=== PATIENT | male | born 1960 | race Caucasian/White ===

== ENCOUNTER → 2020-03-07 08:00 | Outpatient (REF) | payer MEDICARE, MEDICAID, SELFPAY ==
--- NOTE | 2020-03-07 | NM_ITS ---
Exercise Myocardial perfusion study Indication: Chest pain with multiple risk factors to evaluate for myocardial ischemia Technique: The patient was brought in for an exercise perfusion study on 03/07/2020. Patient performed exercise as per Mikey protocol and was injected 25 mCi of sestamibi was given intravenously one target HR was achieved. Images were obtained using the SPECT gamma camera interlaced with the gating device. Images were obtained in supine position. Resting perfusion study was performed on 03/11/2020. Patient was administered 25 mCi of sestamibi intravenously at rest. Images were then obtained in supine position. Images obtained with and without CT attenuation. Total DLP 72 MGY-CM. Images were processed with the software and compared side to side in short axis, horizontal long axis and vertical long axis views. Findings: The stress perfusion study showed non attenuated images shows overall normal perfusion with mild thinning of the basal inferior wall. Attenuation corrected images show normal uptake of radiotracer in all segments of LV myocardium.. The gated study shows normal LV systolic function with calculated LVEF of 67%. LV cavity is normal in size. The gated study shows normal systolic wall thickening and contraction of all segments. There is no transient ischemic dilation. Resting study shows non attenuated images show mildly reduced uptake in the basal inferior wall of the LV myocardium. Attenuation corrected images show normal uptake of radiotracer in all segments of LV myocardium. Gating at rest reveals normal cyst colic wall motion with ejection fraction at 66%. The findings are consistent with normal myocardial perfusion. NM/NM len perf SPECT rest & str Impression: 1. Normal myocardial perfusion 2. Gated LVEF is 67% 3. Transient ischemic dilatation not present Stress EKG is nondiagnostic for ischemia
--- NOTE | 2020-03-07 08:30 | CA_ITS ---
Acquisition Time: 2020-03-07 08:14:13 Total Exercise Time: 00:09:07 Test Indications: CP Medications: SEE CHART Protocol: DONALDO Max HR: 118 BPM 73% of Pred: 160 BPM Max BP: 140/078 mmHG Max Work Load: 10.2 METS Exercise nuclear using Donaldo protocol for total 9 min 7 sec, however pr's HR up to only 68% THR. Test switched to Lexiscan, pt tolerated well, CP 3/10 after Lexiscan that resolved in recovery. EKG with occ. PVC's and ST inversion in aVL and aVR. and upsloping ST deptressions seen inferiorly and laterally. Non-diagnostic for ischemia. Nuclear images to follow. Hypotensive response to lexiscan, normalized quickly. Test reviewed with DR. Cosme. Referred By: Sonu Campbell Overread By: Kalin Castro
== END ==
LOC: HO.CARD 08:00
PROVIDERS: PCP Internal Medicine; Visit Provider Internal Medicine Cardiovascular Disease
DX: R07.9 Chest pain, unspecified (principal)
CPT/HCPCS: 78452; 93017; A9500; J0280; J2785

== ENCOUNTER 2020-04-23 07:58 | Outpatient (REF) | payer MEDICARE, MEDICAID, SELFPAY | END 2020-04-23 07:59 | disposition home or self-care (01) | LOC: HO.LAB 07:58 | PROVIDERS: Visit Provider Internal Medicine | DX: Z13.89 Encounter for screening for other disorder (principal) | CPT/HCPCS: C9803; U0003 ==

== ENCOUNTER 2020-04-23 08:34 | Emergency (ER) | payer MEDICARE, MEDICAID, SELFPAY ==
[2020-04-23 08:44] VITALS: BP 153/91; PULSE 72; RESP 16; TEMP 37.2; O2SAT 99; BMI 24.1
--- NOTE | 2020-04-23 09:08 | ECG_ITS ---
Test Reason : HEADACHE Blood Pressure : / mmHG Vent. Rate : 059 BPM Atrial Rate : 059 BPM P-R Int : 170 ms QRS Dur : 122 ms QT Int : 418 ms P-R-T Axes : 054 -47 -28 degrees QTc Int : 413 ms Sinus bradycardia Left ventricular hypertrophy with QRS widening T wave abnormality, consider lateral ischemia Abnormal ECG When compared with ECG of 05-DEC-2008 11:01, ST less elevated in Lateral leads T wave inversion now evident in Lateral leads Referred By: Catherine Delgado Electronically Signed By:MIMI STAFFORD
--- NOTE | 2020-04-23 09:08 | XR_ITS ---
EXAMINATION: XR CHEST CLINICAL INFORMATION: Chest pain COMPARISON: Previous chest x-ray November 2008 TECHNIQUE: Frontal view of the chest was obtained. FINDINGS: No significant abnormality is noted involving the heart, lungs, mediastinum, bony thorax or soft tissues. XR/XR chest 1V IMPRESSION: Unremarkable examination.
--- NOTE | 2020-04-23 09:11 | ED_ITS ---
HPI - Headache General Chief Complaint: Headache Stated Complaint: HBP, Headache Time Seen by Provider: 04/23/20 08:36 Source: patient Mode of arrival: ambulatory History of Present Illness HPI Narrative: 60-year-old male with a past medical history of hypertension presents to ED complaining of elevated BP at home, headache, and intermittent blurry vision x5 days. Admits to compliance with hypertensive medications, last took this morning. 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 Also reports intermittent CP. Denies vision change or loss at present. Denies nausea/vomiting, SOB, numbness/tingling, cough, fever, abdominal pain, LE edema MD elicited complaint: headache Related Data Previous Rx's Medication Instructions Recorded [id number]-[id number] 1 cap PO Q4-6H PRN #14 cap 04/23/20 [Fioricet] Allergies Allergy/AdvReac Type Severity Reaction Status Date / Time nut - unspecified [NUTS] Allergy Intermediate ITCHY Unverified 01/31/20 16:38 THROAT nitroglycerin [NITROGLYCERIN] AdvReac Unknown HEADACHES Unverified 01/31/20 16:38 BREAD Allergy Mild RUNNY NOSE Uncoded 01/31/20 16:38 Lopid Allergy Unknown Uncoded 07/27/11 00:00 nsaids Allergy Unknown Uncoded 07/27/11 00:00 Percocet Allergy Unknown Uncoded 07/27/11 00:00 Review of Systems Review of Systems: Constitutional: No Weight loss, No Fever, No Chills ENT/Mouth: No Hearing loss, No Ear Pain, No Nasal Congestion, No Sinus Pain, No Hoarseness, No sore throat Eyes: No Eye Pain, No Swelling, No Redness, No Discharge, +intermittent blurry vision (not at present) Cardiovascular: + intermittent Chest Pain, No SOB, No Edema, No Palpitations Respiratory: No Cough, No Sputum, No Dyspnea Gastrointestinal: No Nausea, No Vomiting, No Diarrhea, No Constipation, No Abdominal pain Musculoskeletal: No joint pain, No Myalgias, No Joint Swelling Skin: No Skin Lesions, No rash Neuro: No Weakness, No Numbness, No Paresthesias, No Loss of Consciousness, No Dizziness, +Headache Yes all other systems are reviewed and are negative [facility]LY [facility] Past Medical History Attestation statement: The following information was validated with the patient. Medical History (Updated 04/23/20 @ 13:49 by DESI Mckeon) HTN (hypertension) Social History Social History Advance Directives: No Advance Directives Information Provided: No Physical Exam Vital Signs: Vital Signs: Last Vital Signs Temp 98.9 F 04/23/20 08:44 Pulse 58 04/23/20 13:13 Resp 17 04/23/20 13:13 BP 154/94 H 04/23/20 13:13 Pulse Ox 97 04/23/20 13:13 Body Mass Index 24.1 Const: General: cooperative and healthy appearing Orientation/consciousness: patient oriented x3 Limitations: no limitations HENMT: Head: Yes normal to inspection Ears: hearing grossly normal bilaterally General nose exam: Normal external nose present Face and sinus: Yes normal facial exam Mouth: Normal oral and palatal mucosa present Throat: Yes posterior oropharynx normal Eyes: General: appearance normal, both eyes and all related structures Ey elids: Yes eyelids normal Conjunctivae: conjunctivae normal Sclerae: sclerae normal Corneas: corneas normal Pupils: Equal, round and reactive pupils present EOM: EOMs intact bilaterally Neck: Neck: Yes normal visual inspection and Yes no meningeal signs Resp: Effort & Inspection: normal respiratory effort Auscultation: clear to auscultation bilaterally, no rales, no rhonchi and no wheezes Cardio: Rate: regular rate Heart sounds: S1 normal heart sound present and S2 normal heart sound present GI: Inspection: Yes normal to inspection Palpation (GI): Soft to palpation, nontender, no guarding and not rigid Skin: Rashes: no rashes Wounds: no wounds Neuro: General: patient oriented x3, gait normal, tone normal, moves all extremities, no meningeal signs, no focal motor deficits and CN's II-XI intact bilaterally Cranial nerves: Yes Equal, round and reactive pupils present Gait exam (Neuro): Normal gait present Motor exam (neuro): 5/5 motor strength present throughout Extrem: General: Yes normal to inspection Course Course Course Narrative: -1219--labs unremarkable, troponin negative, chest x-ray unremarkable -on re-evaluation patient reports symptomatic improvement, however patient reports requesting head CT as worried something is in brain. Will obtain prior to DC -1346--head CT unremarkable Labs/imaging results including compliance with hypertensive medications, worrisome signs and symptoms and strict return precautions discussed, patient verbalized understanding feel safe for discharge home MDM - Headache MDM Narrative Medical decision making narrative: 60-year-old male with a past medical history of hypertension presents to ED complaining of elevated BP at home, headache, intermittent blurry vision, and intermittent CP x5 days. On exam blood pressure 153/91, NAD, nontoxic appearing, no focal neuro deficits, lungs CTA. BP not high enough to cause SAH/ICH at present. Lower concern for hypertensive urgency/emergency with current blood pressure. Likely migraine headache vs COVID19. Low concern for ACS Plan: EKG, Labs, Fioricet, reassess Lab Data Result diagrams: 04/23/20 10:31 04/23/20 10:31 Labs: Lab Results 04/23/20 04/23/20 04/23/20 Range/Units 10:31 10:31 10:31 WBC 6.0 (4.8-10.8) X10*3/uL RBC 5.50 (4.60-5.80) X10*6/uL Hgb 14.7 (14.0-18.0) g/dl Hct 44.5 (42-52) % MCV 80.9 (80-98) fL MCH 26.7 L (27.0-33.0) pg MCHC 33.0 (31.0-36.0) g/dl RDW 14.5 (11.0-16.0) % Plt Count 206 (160-400) X10*3/uL MPV 9.8 (9.4-12.4) fL Immature Gran % (Auto) 0.3 (0.0-0.4) % Neut % (Auto) 51.7 (45-73) % Lymph % (Auto) 32.2 (20-40) % Hickman % (Auto) 12.6 H (2-11) % Eos % (Auto) 2.9 (0-4) % Baso % (Auto) 0.3 (0-2) % Lymph # (Auto) 1.9 (1.2-4.9) X10*3/uL Hickman # (Auto) 0.8 (0.1-1.2) X10*3/uL Eos # (Auto) 0.2 (0.0-0.4) X10*3/uL Baso # (Auto) 0.0 (0.0-0.2) X10*3/uL Abs Immat Gran (auto) 0.02 (0.00-0.03) X10*3/uL Absolute Neuts (auto) 3.1 (2.0-8.3) X10*3/uL Absolute Nucleated RBC 0.000 (0.0-0.012) X10*3/uL Nucleated RBC % (auto) 0.0 (0.0-0.2) /100WBC Hold Blue Top SEE NOTE Sodium 140 (135-145) mmol/L Potassium 3.8 (3.3-5.1) mmol/l Chloride 108 (96-108) mmol/L Carbon Dioxide 23 (22-29) mmol/L Anion Gap 13 (12-20) BUN 14 (9-16) mg/dL Creatinine 0.97 (0.5-1.4) mg/dL Estim Creat Clear Calc 70.4 Estimated GFR > 60 Random Glucose 117 H (60-115) mg/dL Calcium 8.8 (8.4-10.2) mg/dL Magnesium 2.1 (1.6-2.6) mg/dL Total Bilirubin (0.0-1.0) mg/dL Direct Bilirubin (0.0-0.5) mg/dL AST (5-37) U/L ALT (0-40) U/L Alkaline Phosphatase (39-117) U/L Troponin I High Sens (<3.5-35.0) ng/L Total Protein (6.5-8.0) g/dL Albumin (3.5-5.0) g/dL 04/23/20 04/23/20 Range/Units 10:31 10:31 WBC (4.8-10.8) X10*3/uL RBC (4.60-5.80) X10*6/uL Hgb (14.0-18.0) g/dl Hct (42-52) % MCV (80-98) fL MCH (27.0-33.0) pg MCHC (31.0-36.0) g/dl RDW (11.0-16.0) % Plt Count (160-400) X10*3/uL MPV (9.4-12.4) fL Immature Gran % (Auto) (0.0-0.4) % Neut % (Auto) (45-73) % Lymph % (Auto) (20-40) % Hickman % (Auto) (2-11) % Eos % (Auto) (0-4) % Baso % (Auto) (0-2) % Lymph # (Auto) (1.2-4.9) X10*3/uL Hickman # (Auto) (0.1-1.2) X10*3/uL Eos # (Auto) (0.0-0.4) X10*3/uL Baso # (Auto) (0.0-0.2) X10*3/uL Abs Immat Gran (auto) (0.00-0.03) X10*3/uL Absolute Neuts (auto) (2.0-8.3) X10*3/uL Absolute Nucleated RBC (0.0-0.012) X10*3/uL Nucleated RBC % (auto) (0.0-0.2) /100WBC Hold Blue Top Sodium (135-145) mmol/L Potassium (3.3-5.1) mmol/l Chloride (96-108) mmol/L Carbon Dioxide (22-29) mmol/L Anion Gap (12-20) BUN (9-16) mg/dL Creatinine (0.5-1.4) mg/dL Estim Creat Clear Calc Estimated GFR Random Glucose (60-115) mg/dL Calcium (8.4-10.2) mg/dL Magnesium (1.6-2.6) mg/dL Total Bilirubin 0.3 (0.0-1.0) mg/dL Direct Bilirubin < 0.2 (0.0-0.5) mg/dL AST 20 (5-37) U/L ALT 25 (0-40) U/L Alkaline Phosphatase 68 (39-117) U/L Troponin I High Sens 4.6 (<3.5-35.0) ng/L Total Protein 6.5 (6.5-8.0) g/dL Albumin 3.9 (3.5-5.0) g/dL Discharge Plan Discharge Clinical Impression: Headache Patient Disposition: Home, Self-Care Instructions: Acute Headache (ED) Additional Instructions: Your head CT, chest x-ray, and blood work were unremarkable today in the ED Fioricet is for headaches, prescription was sent to your pharmacy, take as needed Need to follow-up with her primary care doctor Continue to take previously prescribed hypertensive medications, monitor your blood pressure at home, call your doctor, your also tested for COVID-19, the results should be back in 3-7 days, self isolate antinausea results If symptoms persist or worsen, headache becomes unbearable, vision changes, weakness, or fever unresolved by Tylenol return to the ED Based on your symptoms and history we have sent a COVID-19. Although your RESULT IS PENDING at this time. RESULTS should return within 72 hours. At this time you will be contacted with either NEGATIVE OR POSITIVE results. -Please wait until we contact you for your results. At this time you will be okay for discharge. Please plan for self quarantine for up to 14 days. Do not expose yourself to others. You may not go to work. If testing does come back negative you may return to activities as long as you are no longer having any symptoms for at least 3 days. Please continue to follow cold instructions and wash your hands frequently. You may take Tylenol as directed on the bottle for pain or fever. Patient seen in the emergency department on 11/09/2019 and should be excused from work until negative test results AND until 72 hours without any symptoms AND at least 10 days have passed since symptoms first appeared or since last exposure to COVID-19 positive patient CDC Guidelines for home isolation: - Stay away from others - WEAR A MASK if you are sick AND STAY HOME - Cover your mouth and nose with a tissue when you cough or sneeze. Dispose of tissues in a lined trash can and wash your hands immediately with soap and water for at least 20 seconds. If soap and water are not available, clean hands with alcohol-based hand cut plug packer that contains at least 60% alcohol. - Clean your hands often with soap and water for at least 20 seconds - Avoid touching your eyes, nose and mouth with unwashed hands - Do not share dishes, drinking glasses, cups, eating utensils, towels, or bedding with other people in your home. After using these items, wash them thoroughly with soap and water or put in the solar energy technician. - Clean high-touch surfaces in your isolation area ( sick room and bathroom) every day; let a caregiver clean and disinfect high-touch surfaces in other areas of the home. Clean the area or item with soap and water or another detergent if it is dirty. Then, use a household disinfectant. - Limit contact with pets and animals: If you must care for a pet, wash your hands before and after interacting with them) Prescriptions: New vzcldvjjvw-[id number]-[id number] [Fioricet] 50-300-40 mg capsule 1 cap PO Q4-6H PRN (Reason: pain) Qty: 14 RF: 0 Referrals: Arsh Torres MD [Primary Care Provider] - 2 days
[2020-04-23 10:16] VITALS: BP 142/92; PULSE 68; RESP 17; O2SAT 97
[2020-04-23] MEDS: Butalb/Acetamin/Caff 50/325/40 TABLET 2 TAB PO (10:24)
[2020-04-23 10:38] LABS: Basophils Percent Auto 0.3 % (0-2); Eosinophils Absolute Auto 0.2 X10*3/uL (0.0-0.4); Eosinophils Percent Auto 2.9 % (0-4); Hematocrit 44.5 % (42-52); Hemoglobin 14.7 g/dl (14.0-18.0); Imm Gran Abs Auto 0.02 X10*3/uL (0.00-0.03); Imm Gran Pct Auto 0.3 % (0.0-0.4); Lymphocytes Absolute Auto 1.9 X10*3/uL (1.2-4.9); Lymphocytes Percent Auto 32.2 % (20-40); MANUAL DIFF FLAG NO; Mean Corpuscular Hemoglobin 26.7 pg (27.0-33.0); Mean Corpuscular Volume 80.9 fL (80-98); Mean Platelet Volume 9.8 fL (9.4-12.4); Monocytes Absolute Auto 0.8 X10*3/uL (0.1-1.2); Monocytes Percent Auto 12.6 % (2-11); Neutrophils Absolute Auto 3.1 X10*3/uL (2.0-8.3); Neutrophils Percent Auto 51.7 % (45-73); Platelet Count 206 X10*3/uL (160-400); Red Cell Distribution Width 14.5 % (11.0-16.0)
[2020-04-23 11:04] LABS: Alanine Aminotransferase 25 U/L (0-40); Albumin Level 3.9 g/dL (3.5-5.0); Alkaline Phosphatase 68 U/L (39-117); Anion Gap 13 (12-20); Aspartate Amino Transferase 20 U/L (5-37); Bilirubin Direct < 0.2 mg/dL (0.0-0.5); Bilirubin Total 0.3 mg/dL (0.0-1.0); Blood Urea Nitrogen 14 mg/dL (9-16); Calcium 8.8 mg/dL (8.4-10.2); Carbon Dioxide 23 mmol/L (22-29); Chloride 108 mmol/L (96-108); Creatinine Clr Calc Pharmacy 70.4; Estimated Glomerular Filt Rate > 60; Glucose Random 117 mg/dL (60-115); Magnesium 2.1 mg/dL (1.6-2.6); Potassium 3.8 mmol/l (3.3-5.1); Sodium 140 mmol/L (135-145); Total Protein 6.5 g/dL (6.5-8.0)
[2020-04-23 11:08] LABS: Troponin-I High Sensitivity 4.6 ng/L (<3.5-35.0)
--- NOTE | 2020-04-23 12:24 | CT_ITS ---
EXAMINATION: CT HEAD WITHOUT CONTRAST CLINICAL INFORMATION: Intermittent vision changes. Right-sided headache. COMPARISON: Previous exams most recent February 2016 TECHNIQUE: Contiguous axial imaging was performed from the skull base to vertex without intravenous administration of contrast. This CT examination was performed using dose optimization techniques as appropriate, variously including the following: *Automated exposure control *Adjustment of mA and/or kV according to patient size (this includes techniques or standardized protocols for targeted exams where dose is matched to indication/reason for exam; i.e. extremities or head) *Use of iterative reconstruction technique DLP: 6 x 7 mGy-cm FINDINGS: There is no evidence of acute intracranial hemorrhage or territorial infarction. No abnormal mass effect or midline shift is seen. Denise to white matter differentiation is well preserved. No extra-axial fluid collections are identified. The ventricles are normal in size. There is no abnormal attenuation within the brain parenchyma. The osseous structures and soft tissues are normal. The mastoid air cells and visualized portions of the paranasal sinuses are well aerated. 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 CT/CT head/brain wo con IMPRESSION: No acute intracranial pathology.
[2020-04-23 13:13] VITALS: BP 154/94; PULSE 58; RESP 17; O2SAT 97
== END 2020-04-23 14:05 | disposition home or self-care (01) ==
PROVIDERS: Physician Assistant; Emergency Provider Emergency Medicine; PCP Internal Medicine
DX: R51.9 Headache, unspecified (principal); Z20.828 Contact with and (suspected) exposure to other viral communicable diseases; I10 Essential (primary) hypertension; Z79.899 Other long term (current) drug therapy
CPT/HCPCS: 36415; 70450; 71045; 80048; 80076; 83735; 84484; 85025; 93005; 99284; C9803; U0003

== ENCOUNTER 2020-07-07 09:53 | Emergency (ER) | payer MEDICARE, MEDICAID, SELFPAY ==
--- NOTE | 2020-07-07 | ECG_ITS ---
Test Reason : CHEST PAIN Blood Pressure : / mmHG Vent. Rate : 068 BPM Atrial Rate : 068 BPM P-R Int : 142 ms QRS Dur : 120 ms QT Int : 396 ms P-R-T Axes : 039 -49 015 degrees QTc Int : 421 ms Normal sinus rhythm Left anterior fascicular block Left ventricular hypertrophy with QRS widening Nonspecific ST and T wave abnormality Abnormal ECG When compared with ECG of 23-APR-2020 11:02, Nonspecific T wave abnormality has replaced inverted T waves in Inferior leads Referred By: Cody Bullock Electronically Signed By:MAXIMILIANO KIM MD
[2020-07-07 10:18] VITALS: BP 135/88; PULSE 69; RESP 17; TEMP 36.6; O2SAT 99; BMI 24.1
== END 2020-07-07 14:47 | disposition left against medical advice (07) ==
PROVIDERS: Emergency Provider Emergency Medicine; PCP Internal Medicine
DX: R51.9 Headache, unspecified (principal); I10 Essential (primary) hypertension; R07.9 Chest pain, unspecified; E13.9 Other specified diabetes mellitus without complications
CPT/HCPCS: 93005; 99282; 99283

== ENCOUNTER 2020-09-17 08:02 | Outpatient (REF) | payer MEDICARE, MEDICAID, SELFPAY | END 2020-09-17 08:03 | disposition home or self-care (01) | LOC: HO.LAB 08:02 | PROVIDERS: Visit Provider Internal Medicine | DX: Z20.822 Contact with and (suspected) exposure to COVID-19 (principal) | CPT/HCPCS: C9803; U0003; U0005 ==

== ENCOUNTER 2020-11-25 09:25 | Outpatient (REF) | payer MEDICARE, MEDICAID, SELFPAY | END 2020-11-25 09:26 | disposition home or self-care (01) | LOC: HO.LAB 09:25 | PROVIDERS: Visit Provider Internal Medicine | DX: Z20.822 Contact with and (suspected) exposure to COVID-19 (principal) | CPT/HCPCS: C9803; U0003; U0005 ==

== ENCOUNTER 2021-01-28 10:21 | Outpatient (REF) | payer MEDICARE, MEDICAID, SELFPAY ==
--- NOTE | ~2021-01-28 | XR_ITS ---
EXAMINATION: XR CHEST CLINICAL INFORMATION: Shortness of breath COMPARISON: Previous chest x-ray April 2020 TECHNIQUE: 2 views of the chest were obtained. FINDINGS: The cardiac and mediastinal contours are normal. The lungs are clear. There is no pleural effusion or pneumothorax. There are postsurgical changes to the left shoulder. XR/XR chest 2V IMPRESSION: No evidence for acute disease in the chest.
== END 2021-01-28 10:22 | disposition home or self-care (01) ==
LOC: HO.XRAY 10:21
PROVIDERS: Absent Provider Internal Medicine; PCP Internal Medicine; Visit Provider Emergency Medicine
DX: R06.02 Shortness of breath (principal)
CPT/HCPCS: 71046

== ENCOUNTER 2021-03-13 08:26 | Outpatient (REF) | payer MEDICARE, MEDICAID, SELFPAY ==
[2021-03-13 08:52] LABS: COVID-19 Test Negative (Negative)
== END 2021-03-13 08:27 | disposition home or self-care (01) ==
LOC: HO.LAB 08:26
PROVIDERS: PCP Internal Medicine; Visit Provider Internal Medicine
DX: Z20.822 Contact with and (suspected) exposure to COVID-19 (principal)
CPT/HCPCS: 36415; 87635; C9803

== ENCOUNTER 2021-04-02 12:49 | Outpatient (REF) | payer MEDICARE, MEDICAID, SELFPAY ==
[2021-04-02 13:15] LABS: COVID-19 Test Negative (Negative)
== END 2021-04-02 12:50 | disposition home or self-care (01) ==
LOC: HO.LAB 12:49
PROVIDERS: PCP Internal Medicine; Visit Provider Internal Medicine
DX: Z20.822 Contact with and (suspected) exposure to COVID-19 (principal)
CPT/HCPCS: 36415; 87635; C9803

== ENCOUNTER → 2021-09-16 10:25 | Outpatient (BNVA) | payer MEDICARE, MEDICAID, SELFPAY | PROVIDERS: PCP Internal Medicine; Referring Provider Internal Medicine; Visit Provider Surgery | DX: D17.0 Benign lipomatous neoplasm of skin and subcutaneous tissue of head, face and neck (principal) | CPT/HCPCS: 99202 ==

== ENCOUNTER 2022-03-25 09:09 | Outpatient (REF) | payer MEDICARE, MEDICAID, SELFPAY ==
[2022-03-29 14:41] LABS: Prot Elec - Albumin 4.2 g/dL (3.8-4.8); Prot Elec - Alpha1 0.4 g/dL (0.2-0.3); Prot Elec - Alpha2 0.6 g/dL (0.5-0.9); Prot Elec - Beta 1 0.5 g/dL (0.4-0.6); Prot Elec - Beta 2 0.3 g/dL (0.2-0.5)
[2022-04-01 15:16] LABS: Kappa, Serum 265 mg/dL (176-443); Kappa/Lambda Ratio, Serum 1.79 (1.29-2.55); Lambda, Serum 148 mg/dL (91-240)
== END 2022-03-25 09:10 | disposition home or self-care (01) ==
LOC: HO.LAB 09:09
PROVIDERS: PCP Internal Medicine; Visit Provider Internal Medicine Cardiovascular Disease
DX: E85.9 Amyloidosis, unspecified (principal)
CPT/HCPCS: 36415; 83883; 84165

== ENCOUNTER 2022-03-26 07:52 | Outpatient (REF) | payer MEDICARE, MEDICAID, SELFPAY ==
[2022-04-01 10:26] LABS: PEU-Protein Creat Ratio Rand 0.073 (0.025-0.148); PEU-Rand. Prot/Creat Ratio 73 mg/g creat (25-148); PEU-Random Ur. Gamma Globulin 0 %; PEU-Random Urine A1 Globulin 0 %; PEU-Random Urine A2 Globulin 0 %; PEU-Random Urine Albumin 100 %; PEU-Random Urine Beta Globulin 0 %; PEU-Random Urine Creatinine 109 mg/dL (20-320); PEU-Random Urine Protein 8 mg/dL (5-25)
== END 2022-03-26 07:53 | disposition home or self-care (01) ==
LOC: HO.LNP 07:52
PROVIDERS: Visit Provider Internal Medicine Cardiovascular Disease
DX: E85.9 Amyloidosis, unspecified (principal)
CPT/HCPCS: 82570; 84156; 84166

== ENCOUNTER 2022-06-17 09:50 | Outpatient (REF) | payer MEDICARE, MEDICAID, SELFPAY ==
[2022-06-17 11:10] LABS: Hematocrit 45.5 % (42.0-52.0); Hemoglobin 15.7 g/dl (14.0-18.0); Mean Corpuscular HGB Conc 34.5 g/dl (31.0-36.0); Mean Corpuscular Volume 84.1 fL (80.0-98.0); Mean Platelet Volume 9.9 fL (9.4-12.4); Platelet Count 209 X10*3/uL (160-400); Red Blood Count 5.41 X10*6/uL (4.60-5.80); Red Cell Distribution Width 13.7 % (11.0-16.0); White Blood Count 5.9 X10*3/uL (4.8-10.8)
[2022-06-17 11:25] LABS: Anion Gap 11 (12-20); Blood Urea Nitrogen 19 mg/dL (9-16); Calcium 9.2 mg/dL (8.4-10.2); Carbon Dioxide 25 mmol/L (22-29); Chloride 107 mmol/L (96-108); Cholesterol 176 mg/dL; Estimated Glomerular Filt Rate > 60; Glucose Random 93 mg/dL (60-115); HDL Cholesterol 27 mg/dL; LDL Cholesterol Calculated 119 mg/dl; Potassium 4.1 mmol/L (3.3-5.1); Sodium 139 mmol/L (135-145); Triglycerides 154 mg/dL
[2022-06-17 12:23] LABS: Creatinine Urine 123.67 mg/dL; Microalbum/Creatinine Ratio Ur 33.9 ug/mg cr
[2022-06-17 13:05] LABS: Reflex LDLD? No
[2022-06-18 08:52] LABS: ~Hepatitis C Antibody Nonreactive (Nonreactive)
[2022-06-21 12:49] LABS: IgA 355 mg/dL (70-320); IgG 1189 mg/dL (600-1540); IgM 145 mg/dL (50-300)
[2022-06-21 15:03] LABS: Prot Elec - Albumin 4.2 g/dL (3.8-4.8); Prot Elec - Alpha1 0.3 g/dL (0.2-0.3); Prot Elec - Alpha2 0.6 g/dL (0.5-0.9); Prot Elec - Beta 1 0.5 g/dL (0.4-0.6); Prot Elec - Beta 2 0.4 g/dL (0.2-0.5); Prot Elec - Gamma 1.2 g/dL (0.8-1.7); Prot Elec - Total Protein 7.2 g/dL (6.1-8.1)
[2022-06-21 16:58] LABS: PEU-Protein Creat Ratio Rand 0.116 (0.025-0.148); PEU-Rand. Prot/Creat Ratio 116 mg/g creat (25-148); PEU-Random Ur. Gamma Globulin 0 %; PEU-Random Urine A1 Globulin 0 %; PEU-Random Urine A2 Globulin 0 %; PEU-Random Urine Albumin 100 %; PEU-Random Urine Beta Globulin 0 %; PEU-Random Urine Creatinine 121 mg/dL (20-320); PEU-Random Urine Protein 14 mg/dL (5-25)
[2022-06-22 08:48] LABS: HCV Log PCR <1.18 NOT DETECTED Log IU/mL (NOT DETECTED); HepC Viral Load <15 NOT DETECTED IU/mL (NOT DETECTED)
[2022-06-25 15:24] LABS: Kappa, Serum 303 mg/dL (176-443); Kappa/Lambda Ratio, Serum 1.86 (1.29-2.55); Lambda, Serum 163 mg/dL (91-240)
== END 2022-06-17 09:51 | disposition home or self-care (01) ==
LOC: HO.LAB 09:50
PROVIDERS: PCP Internal Medicine; Visit Provider Internal Medicine Cardiovascular Disease
DX: E11.9 Type 2 diabetes mellitus without complications (principal); D75.1 Secondary polycythemia; I10 Essential (primary) hypertension; R76.8 Other specified abnormal immunological findings in serum; E85.9 Amyloidosis, unspecified
CPT/HCPCS: 36415; 80048; 80061; 82043; 82570; 82784; 83883; 84156; 84165; 84166; 85027; 86334; 86335; 86803; 87522

== ENCOUNTER 2023-05-25 12:01 | Outpatient (REF) | payer MEDICARE, MEDICAID, SELFPAY ==
--- NOTE | ~2023-05-25 | XR_ITS ---
EXAMINATION: XR CHEST CLINICAL INFORMATION: Posterior chest pain COMPARISON: 01/28/2021 TECHNIQUE: 2 views of the chest were obtained. FINDINGS: Lungs are well-inflated and clear. Trachea is midline in position. No interstitial disease, consolidation or mass. No pleural effusion or pneumothorax. Cardiac silhouette and pulmonary vessels are normal in size. The mediastinum and rudy have normal contour. There are metallic anchors within the left humeral head, and there is probably an old left biceps tenodesis. Otherwise, the visualized bones and upper abdomen are unremarkable. XR/XR chest 2V IMPRESSION: No acute cardiopulmonary abnormality.
== END 2023-05-25 12:02 | disposition home or self-care (01) ==
LOC: HO.HHCX 12:01
PROVIDERS: Visit Provider Emergency Medicine
DX: R07.89 Other chest pain (principal)
CPT/HCPCS: 71046

== ENCOUNTER 2023-09-12 09:54 | Inpatient (IN) | payer MEDICARE, MEDICAID, SELFPAY ==
[2023-09-12] VITALS (8 sets, daily range): BP systolic 96–137; BP diastolic 60–83; PULSE 84–131; RESP 14–20; TEMP 37–39; O2SAT 95–100; BMI 25.0
--- NOTE | ~2023-09-12 | US_ITS ---
EXAMINATION: US RETROPERITONEAL LIMITED (RENAL ONLY) CLINICAL INFORMATION: ALESSANDRA/proteinuria. COMPARISON: CT abdomen and pelvis 09/12/2023. Ultrasound abdomen complete 06/02/2016. TECHNIQUE: Real-time imaging of the kidneys. FINDINGS: RIGHT KIDNEY: 9.9 x 4.6 x 6.1 cm (SAG x AP x TRV). The kidney is normal in size, contour, and echogenicity. Renal cortical thickness is normal. No renal calculi or hydronephrosis. 9 mm cortical simple cyst in the mid kidney. No follow-up imaging is recommended. LEFT KIDNEY: 9.1 x 5.0 x 5.2 cm (SAG x AP x TRV). The kidney is normal in size, contour, and echogenicity. Renal cortical thickness is normal. No renal calculi or hydronephrosis. 7 mm cortical simple cyst in the lower kidney. No follow-up imaging is recommended. US/US renal BI IMPRESSION: No nephrolithiasis or hydronephrosis.
--- NOTE | ~2023-09-12 | CT_ITS ---
EXAMINATION: CT ABDOMEN AND PELVIS WITH CONTRAST CLINICAL INFORMATION: Right flank pain. COMPARISON: CT abdomen pelvis dated 08/05/2018. TECHNIQUE: Multidetector volumetric images were obtained from the superior aspect of the liver through the pubic symphysis following administration 85 mL of Omnipaque 350 intravenous contrast. Sagittal and coronal reformatted images were obtained on the technologist's workstation. Oral contrast: No This CT examination was performed using dose optimization techniques as appropriate, variously including the following: *Automated exposure control *Adjustment of mA and/or kV according to patient size (this includes techniques or standardized protocols for targeted exams where dose is matched to indication/reason for exam; i.e. extremities or head) *Use of iterative reconstruction technique DLP: 431 mGy-cm FINDINGS: LUNG BASES: There are mild dependent changes at the lung bases. No pleural effusion. Heart size is normal. No pericardial effusion. LIVER, GALLBLADDER, AND BILIARY TREE: The liver is normal in size, shape, and attenuation. No focal hepatic lesion or biliary ductal dilatation is present. The gallbladder is unremarkable with no evidence of radiopaque gallstones, gallbladder wall thickening, or obvious pericholecystic inflammatory changes. PANCREAS: Unremarkable. SPLEEN: Unremarkable. ADRENAL GLANDS: Unremarkable. KIDNEYS AND URETERS: The kidneys are normal in size, shape, and attenuation. No hydronephrosis, hydroureter, or calculi seen. The previously identified 1.7 mm right renal calculus is no longer seen. No perinephric stranding. There are a few subcentimeter right renal cysts. There is at least one left subcentimeter left renal cyst. BLADDER: Unremarkable. GASTROINTESTINAL TRACT: There is a small hiatal hernia. The small bowel and colon are normal in caliber. There is no pericolonic inflammatory stranding. There is no colonic wall thickening. The appendix is not definitively identified, however, there are no inflammatory changes within the right lower quadrant to indicate acute appendicitis. There is no free fluid within the abdomen or pelvis. ABDOMINAL WALL: No significant hernia is appreciated. LYMPH NODES: No lymphadenopathy. VASCULAR: No abdominal aortic aneurysm. PELVIC VISCERA: The prostate gland is markedly enlarged measuring 6.3 x 7.2 cm. OSSEOUS STRUCTURES: There are surgical changes at L4-L5 and L5-S1. There are intervertebral disc spacers at these levels. CT/CT abdomen pelvis w IV con IMPRESSION: No acute intra-abdominal/intrapelvic abnormality. The previously identified 1.7 mm right renal calculus is no longer seen. The prostate gland is markedly enlarged measuring 6.3 x 7.2 cm. It is heterogeneous in attenuation and contains multiple calcifications. Fleischner guidelines were followed.
--- NOTE | ~2023-09-12 | XR_ITS ---
EXAMINATION: XR CHEST CLINICAL INFORMATION: Cough. COMPARISON: Prior chest radiographs, most recently 05/25/2023. TECHNIQUE: Frontal view of the chest was obtained. FINDINGS: No significant abnormality is noted involving the heart, lungs, mediastinum, bony thorax or soft tissues. Orthopedic anchors are applied to the left humeral head. XR/XR chest 1V IMPRESSION: Unremarkable examination.
[2023-09-12 10:52] LABS: Hematocrit 43.1 % (42.0-52.0); Hemoglobin 15.7 g/dl (14.0-18.0); Mean Corpuscular HGB Conc 36.4 g/dl (31.0-36.0); Mean Corpuscular Hemoglobin 30.8 pg (27.0-33.0); Mean Corpuscular Volume 84.5 fL (80.0-98.0); Platelet Count 150 X10*3/uL (160-400); White Blood Count 26.4 X10*3/uL (4.8-10.8)
[2023-09-12 11:09] LABS: Alanine Aminotransferase 26 U/L (0-40); Albumin Level 3.7 g/dL (3.5-5.0); Alkaline Phosphatase 105 U/L (39-117); Anion Gap 14 (12-20); Aspartate Amino Transferase 21 U/L (5-37); Bilirubin Total 1.6 mg/dL (0.0-1.0); Blood Urea Nitrogen 19 mg/dL (9-16); Calcium 9.3 mg/dL (8.4-10.2); Carbon Dioxide 27 mmol/L (22-29); Chloride 99 mmol/L (96-108); Creatinine Clr Calc Pharmacy 43.2; Estimated Glomerular Filt Rate 47; Glucose Random 177 mg/dL (60-115); Potassium 3.6 mmol/L (3.3-5.1); Sodium 136 mmol/L (135-145); Total Protein 6.9 g/dL (6.5-8.0)
[2023-09-12 11:29] LABS: Neutrophils Percent Manual 73 % (45-73)
[2023-09-12 11:37] LABS: Band Neutrophils Percent 20 % (3-5); Lymphocytes Absolute Manual 0.8 X10*3/uL (1.2-4.9); Lymphocytes Percent Manual 3 % (20-40); Metamyelocytes Absolute 0.3 X10*3/uL; Metamyelocytes Percent 1 %; Monocytes Absolute Manual 0.5 X10*3/uL (0.1-1.2); Monocytes Percent Manual 2 % (2-11); Myelocytes Absolute 0.3 X10*/uL; Myelocytes Percent 1 %; Neutrophils Absolute Manual 24.6 X10*3/uL (2.0-8.3); Platelet Estimate NORMAL (NORMAL); Platelet Morphology Comment NORMAL; RBC Morphology NORMAL
[2023-09-12] MEDS: Acetaminophen 325 MG TABLET 650 MG PO (11:39)
[2023-09-12 12:26] LABS: Lactic Acid 2.2 mmol/L (0.5-2.0)
--- NOTE | 2023-09-12 12:37 | ED_ITS ---
HPI - Male Genitourinary General Chief complaint: Urogenital-Male Stated complaint: Vomiting/Abd pain and back pain Time Seen by Provider: 09/12/23 12:10 Source: patient Mode of arrival: ambulatory History of Present Illness HPI Narrative: 63-year-old male with history of hypertension and diabetes presents with 2 days of dysuria and right-sided abdominal pain, patient is status post appendectomy, denies diarrhea. Related Data Home Medications ?Medication ?Instructions ?Recorded ?Confirmed amlodipine 5 mg tablet 5 mg PO DAILY 09/16/21 09/12/23 lisinopril 40 mg tablet 40 mg PO DAILY 09/16/21 09/12/23 meloxicam 15 mg tablet 15 mg PO DAILY 09/16/21 09/12/23 metformin 500 mg tablet,extended 500 mg PO DAILY 09/16/21 09/12/23 release 24 hr metoprolol succinate 25 mg 25 mg PO DAILY 09/16/21 09/12/23 tablet,extended release 24 hr omeprazole 20 mg capsule,delayed 20 mg PO BID 09/16/21 09/12/23 release sumatriptan succinate 50 mg tablet 50 mg PO 09/16/21 09/16/21 tamsulosin 0.4 mg capsule 0.4 mg PO DAILY 09/16/21 09/16/21 hydralazine 50 mg tablet 75 mg PO TID 09/12/23 09/12/23 Previous Rx's ?Medication ?Instructions ?Recorded [id number] 1 cap PO Q4-6H PRN pain #14 caps 04/23/20 50 mg-300 mg-40 mg capsule (Fioricet) Allergies Allergy/AdvReac Type Severity Reaction Status Date / Time nut - unspecified [NUTS] Allergy Intermediate ITCHY Verified 09/12/23 10:00 THROAT nitroglycerin [NITROGLYCERIN] AdvReac Unknown HEADACHES Verified 09/12/23 10:00 BREAD Allergy Mild RUNNY NOSE Uncoded 09/12/23 09:57 Lopid Allergy Unknown Unknown Uncoded 09/12/23 09:57 nsaids Allergy Unknown Unknown Uncoded 09/12/23 09:57 Percocet Allergy Unknown Unknown Uncoded 09/12/23 09:57 Review of Systems 2 Review of Systems: Pertinent positives and negatives as stated in HPI PMFSH Past Medical History Source: nursing notes reviewed Medical History Diabetes 1.5, managed as type 2 HTN (hypertension) Surgical History History of knee surgery Social History Social History Advance Directives: No Advance Directives Information Provided: Yes Do you have a plan to hurt others: No Plan Physical Exam 2 Vital Signs: Vital Signs: Last Vital Signs Temp 99.2 F 09/12/23 18:56 Pulse 114 H 09/12/23 18:56 Resp 20 09/12/23 18:56 BP 136/83 09/12/23 18:56 Pulse Ox 100 09/12/23 18:56 O2 Del Method Room Air 09/12/23 18:56 BMI result Body Mass Index 25.0 VITAL SIGNS: Reviewed. GENERAL: Well developed, well nourished, in no acute distress. HEAD: Normocephalic/atraumatic EYES: PERRLA, EOMI EARS: Ext canals without abnormality NOSE: Nares patent bilateral OROPHARYNX: no oral lesions noted, posterior pharynx clear NECK: Supple, no adenopathy LUNGS: Normal breath sounds. No adventitious sounds or accessory muscle use. SpO2<96> CARDIOVASCULAR: Regular rate and rhythm without noted murmurs ABDOMEN: Soft, right upper quadrant pain without rebound, non-distended with bowel sounds, no CVA tenderness to palpation. MUSCULOSKELETAL: No tenderness, deformities, or effusions noted on gross inspection. EXTREMITIES: No cyanosis, clubbing or edema. SKIN: Inspection of the skin reveals no rashes NEUROLOGIC: Alert and oriented x 4. Strength and sensation to light touch were grossly intact x 4. Medications Administered Discontinued Medications Generic Name Dose Route Start Last Admin Trade Name Freq PRN Reason Stop Dose Admin Acetaminophen 650 mg 09/12/23 11:33 09/12/23 11:39 Acetaminophen 325 Mg Tablet PO 09/12/23 11:34 650 mg ONCE ONE Administration Sodium Chloride 2,041.17 mls @ 2,041.17 mls/hr 09/12/23 12:38 09/12/23 13:42 Ns 30 ml/kg infuse over 1 hr (2041.17 ml) 09/12/23 13:37 Infused IV Infusion .Q1H STA Cefepime HCl 2 gm/ Sodium 50 mls @ 100 mls/hr 09/12/23 12:38 09/12/23 13:15 Chloride IV 09/12/23 13:07 Infused ONCE ONE Infusion Iohexol 100 ml 09/12/23 13:42 09/12/23 13:43 Iohexol 350 Mg/Ml 100 Ml Infus..Btl IV 09/12/23 13:43 85 ml ONCE ONE Administration Ketorolac Tromethamine 15 mg 09/12/23 12:40 09/12/23 12:54 Ketorolac Tromethamine 30 Mg/Ml Vial IVPUSH 09/12/23 12:41 15 mg ONCE ONE Administration Ondansetron HCl 4 mg 09/12/23 12:51 09/12/23 12:54 Ondansetron Hcl 4 Mg/2 Ml Vial IVPUSH 09/12/23 12:52 4 mg ONCE ONE Administration Medical Decision Making Medical Decision Making [facility] Narrative: 1237: Sepsis protocol, 63-year-old male with history and clinical presentation, DDX: Perforation, choledocholithiasis, pancreatitis, lower clinical suspicion for diverticulitis, possibility of pyelonephritis/ureterolithiasis. INTERVENTION: Sepsis IV fluids, pain medication, antipyretics, antibiotics Suspect patient is passing renal stone. I reviewed all investigations and hematologic indices demonstrate leukocytosis without anemia there is noted thrombocytopenia. Chemistry indices demonstrate ALESSANDRA with elevated T bilirubin likely reflective of current septic state, lactic acid mildly elevated at 2.2 but patient was also noted to be hypotensive and received sepsis bolus fluids with response in resolution hypotension. Patient also received medication for pain and nausea. Urinalysis demonstrates moderate leukocyte esterase/WBCs and bacteria and this was a straight catheterization sample. During the straight catheterization nursing informs me that they identified 2 small blood clots that may have been stone, patient also noted to be in urinary retention. CT scan did not demonstrate any ureterolithiasis or hydronephrosis, they identify an enlarged prostate and given patient's symptoms of back discomfort/urinary retention and persistent tachycardia with lower abdominal pelvic discomfort high suspicion for prostatitis. 0643: I discussed case with Dr. Chacon who agrees with admission and defers to hospitalist given patient's medical comorbidities. 1900: I discussed the case with inpatient hospitalist who accepts admission. Differential Diagnosis Differential Diagnoses: The differential diagnosis associated with the presentation includes Please see the discussion above Admission/Observation Consideration of admission/observation: Escalation of care including admission/observation considered Please see the discussion above Consult Healthcare Provider Management of the patient was discussed with: Hospitalist and [employer] Please see the discussion above Lab Data MDM Lab Attestation statement: I reviewed the patient's lab results. Please see the discussion above 09/12/23 17:13 09/12/23 17:13 Labs: Lab Results 09/12/23 09/12/23 09/12/23 Range/Units 10:30 11:36 13:03 WBC 26.4 H (4.8-10.8) X10*3/uL RBC 5.10 (4.60-5.80) X10*6/uL Hgb 15.7 (14.0-18.0) g/dl Hct 43.1 (42.0-52.0) % MCV 84.5 (80.0-98.0) fL MCH 30.8 (27.0-33.0) pg MCHC 36.4 H (31.0-36.0) g/dl RDW 13.0 (11.0-16.0) % Plt Count 150 L D (160-400) X10*3/uL MPV 10.0 (9.4-12.4) fL Immature Gran % (Auto) Cancelled Neut % (Auto) Cancelled Lymph % (Auto) Cancelled [place] % (Auto) Cancelled Eos % (Auto) Cancelled Baso % (Auto) Cancelled Lymph # (Auto) Cancelled [place] # (Auto) Cancelled Eos # (Auto) Cancelled Baso # (Auto) Cancelled Abs Immat Gran (auto) Cancelled Absolute Neuts (auto) Cancelled Absolute Nucleated RBC 0.000 (0.0-0.012) X10*3/uL Nucleated RBC % (auto) 0.0 (0.0-0.2) /100WBC Neutrophils % (Manual) 73 (45-73) % Band Neutrophils % 20 H (3-5) % Lymphocytes % (Manual) 3 L (20-40) % Monocytes % (Manual) 2 (2-11) % Metamyelocytes % 1 % Myelocytes % 1 % Abs Neuts (Manual) 24.6 H (2.0-8.3) X10*3/uL Lymphocytes # (Manual) 0.8 L (1.2-4.9) X10*3/uL Monocytes # (Manual) 0.5 (0.1-1.2) X10*3/uL Metamyelocytes # 0.3 X10*3/uL Myelocytes # 0.3 X10*/uL Toxic Vacuolation Platelet Estimate NORMAL (NORMAL) Plt Morphology Comment NORMAL RBC Morphology NORMAL Sodium 136 (135-145) mmol/L Potassium 3.6 (3.3-5.1) mmol/L Chloride 99 (96-108) mmol/L Carbon Dioxide 27 (22-29) mmol/L Anion Gap 14 (12-20) BUN 19 H (9-16) mg/dL Creatinine 1.52 H (0.5-1.4) mg/dL Estim Creat Clear Calc 43.2 Estimated GFR 47 Random Glucose 177 H (60-115) mg/dL Lactic Acid 2.2 H* (0.5-2.0) mmol/L Lactic Acid F/U @ 2Hr (0.5-2.0) mmol/L Lactic Acid F/U @ 4Hr (0.5-2.0) mmol/L Calcium 9.3 (8.4-10.2) mg/dL Total Bilirubin 1.6 H (0.0-1.0) mg/dL AST 21 (5-37) U/L ALT 26 (0-40) U/L Alkaline Phosphatase 105 (39-117) U/L Total Protein 6.9 (6.5-8.0) g/dL Albumin 3.7 (3.5-5.0) g/dL Lipase 25 (8-78) U/L Urine Color Dark Yellow Urine Appearance Turbid Urine pH 7.5 (5.0-9.0) Ur Specific [place] >= 1.030 H (1.005-1.025) Urine Protein >=1000 (4+) H (Neg-Trace) mg/dL Urine Glucose (UA) Negative (Negative) mg/dL Urine Ketones Trace (Negative) mg/dL Urine Blood Trace H (Negative) Urine Nitrite Negative (Negative) Ur Leukocyte Esterase Moderate (2+) H (Negative) Urine RBC 6-10 H (0-2) /HPF Urine WBC >50 H (0-5) /HPF Ur Squamous Epith Cells 0-2 (0-2) /HPF Urine Bacteria 4+ (None Seen) Hyaline Casts 0-2 (0-2) /LPF 09/12/23 09/12/23 09/12/23 Range/Units 13:59 16:41 17:13 WBC 19.0 H (4.8-10.8) X10*3/uL RBC 4.49 L (4.60-5.80) X10*6/uL Hgb 13.8 L (14.0-18.0) g/dl Hct 38.3 L (42.0-52.0) % MCV 85.3 (80.0-98.0) fL MCH 30.7 (27.0-33.0) pg MCHC 36.0 (31.0-36.0) g/dl RDW 13.2 (11.0-16.0) % Plt Count 108 L D (160-400) X10*3/uL MPV 9.9 (9.4-12.4) fL Immature Gran % (Auto) Cancelled Neut % (Auto) Cancelled Lymph % (Auto) Cancelled [place] % (Auto) Cancelled Eos % (Auto) Cancelled Baso % (Auto) Cancelled Lymph # (Auto) Cancelled [place] # (Auto) Cancelled Eos # (Auto) Cancelled Baso # (Auto) Cancelled Abs Immat Gran (auto) Cancelled Absolute Neuts (auto) Cancelled Absolute Nucleated RBC 0.000 (0.0-0.012) X10*3/uL Nucleated RBC % (auto) 0.0 (0.0-0.2) /100WBC Neutrophils % (Manual) 65 (45-73) % Band Neutrophils % 19 H (3-5) % Lymphocytes % (Manual) 5 L (20-40) % Monocytes % (Manual) 6 (2-11) % Metamyelocytes % 5 % Myelocytes % % Abs Neuts (Manual) 16.0 H (2.0-8.3) X10*3/uL Lymphocytes # (Manual) 1.0 L (1.2-4.9) X10*3/uL Monocytes # (Manual) 1.1 (0.1-1.2) X10*3/uL Metamyelocytes # 1.0 X10*3/uL Myelocytes # X10*/uL Toxic Vacuolation PRESENT Platelet Estimate SLIGHTLY DECREASED (NORMAL) Plt Morphology Comment NORM RBC Morphology NOTED Sodium 138 (135-145) mmol/L Potassium 3.9 (3.3-5.1) mmol/L Chloride 105 (96-108) mmol/L Carbon Dioxide 24 (22-29) mmol/L Anion Gap 13 (12-20) BUN 19 H (9-16) mg/dL Creatinine 1.34 (0.5-1.4) mg/dL Estim Creat Clear Calc 49.0 Estimated GFR 54 Random Glucose 130 H (60-115) mg/dL Lactic Acid (0.5-2.0) mmol/L Lactic Acid F/U @ 2Hr 2.3 H* (0.5-2.0) mmol/L Lactic Acid F/U @ 4Hr 2.6 H* (0.5-2.0) mmol/L Calcium 8.1 L D (8.4-10.2) mg/dL Total Bilirubin (0.0-1.0) mg/dL AST (5-37) U/L ALT (0-40) U/L Alkaline Phosphatase (39-117) U/L Total Protein (6.5-8.0) g/dL Albumin (3.5-5.0) g/dL Lipase (8-78) U/L Urine Color Urine Appearance Urine pH (5.0-9.0) Ur Specific [place] (1.005-1.025) Urine Protein (Neg-Trace) mg/dL Urine Glucose (UA) (Negative) mg/dL Urine Ketones (Negative) mg/dL Urine Blood (Negative) Urine Nitrite (Negative) Ur Leukocyte Esterase (Negative) Urine RBC (0-2) /HPF Urine WBC (0-5) /HPF Ur Squamous Epith Cells (0-2) /HPF Urine Bacteria (None Seen) Hyaline Casts (0-2) /LPF Radiology Impression Discussion of test interpretation with radiology: I have reviewed the radiologist's reading. Radiologist Impression: Please see the discussion above External Record Review External record reviewed: Outpatient record and Prior outpatient labs Chronic Conditions Patient?s care impacted by: Diabetes and Hypertension Critical Care Time Critical Care Time Critical Care Time: Yes Total Critical Care Time: 90 Attestation: I personally attest to this time spent taking care of the patient. Discharge Plan Discharge Clinical Impression: Severe sepsis, Prostatitis, Renal colic, ALESSANDRA (acute kidney injury), Urinary retention Patient Disposition: Admitted As Inpatient Prescriptions: No Action [id number]-bruyppyskjxhf-lswi [Fioricet] 50-300-40 mg capsule 1 cap PO Q4-6H PRN (Reason: pain) Qty: 14 0RF Rx Instructions: do not exceed 6 caps per day amlodipine 5 mg tablet 5 mg PO DAILY meloxicam 15 mg tablet 15 mg PO DAILY lisinopril 40 mg tablet 40 mg PO DAILY omeprazole 20 mg capsule,delayed release(DR/EC) 20 mg PO BID metoprolol succinate 25 mg tablet extended release 24 hr 25 mg PO DAILY sumatriptan succinate 50 mg tablet 50 mg PO metformin 500 mg tablet extended release 24 hr 500 mg PO DAILY hydralazine 100 mg tablet PO tamsulosin 0.4 mg capsule 0.4 mg PO DAILY Print Language: Irish
[2023-09-12] MEDS: 0.9 % Sodium Chloride 2,041.17 ML 2041.17 ML IV (12:42)
[2023-09-12] MEDS: cefEPime HCl 2 GM in 0.9 % Sodium Chloride 50 ML IV (12:47)
[2023-09-12] MEDS: ondansetron HCL 4 MG/2 ML VIAL IVPUSH (12:54)
[2023-09-12] MEDS: Ketorolac Tromethamine 30 MG/ML VIAL 15 MG IVPUSH ×2 (12:54→19:59)
[2023-09-12 13:16] LABS: Appearance Urine Turbid; Color Urine Dark Yellow; Glucose Urine UA Negative (Negative); Leukocyte Esterase Urine Moderate (2+) (Negative); Nitrite Urine Negative (Negative); PH 7.5 (5.0-9.0); Specific Gravity - Urine >= 1.030 (1.005-1.025); UMIC TRIGGER UACC YES; Urine Blood Trace (Negative); Urine Ketones Trace mg/dL (Negative); Urine Protein >=1000 (4+) mg/dL (Neg-Trace)
[2023-09-12 13:22] LABS: Bacteria Urine 4+ (None Seen); Hyaline Casts Urine 0-2 /LPF (0-2); Squamous Epithelial Cell Urine 0-2 /HPF (0-2); UACC Culture Trigger YES; WBC Urine >50 /HPF (0-5)
--- NOTE | 2023-09-12 13:38 | PC.NURSE ---
pt in CT scan
[2023-09-12 13:40] LABS: Lipase 25 U/L (8-78)
[2023-09-12 13:41] LABS: Reflex Lactate? Lactic Acid Added
[2023-09-12] MEDS: iohexoL 350 MG/ML 100 ML INFUS..BTL IV (13:43)
--- NOTE | 2023-09-12 14:03 | PC.NURSE ---
verified with yasmani in lab rodas top urine has been received
--- NOTE | 2023-09-12 14:48 | PC.NURSE ---
pt complains of supra pubic pain, and sts that he is unable to void- bladder scan measured 433ml - pt attempted to pass urine on his own both in the room with urinal as well in the bathroom. straight cath yielded 510mls of turbid, foul smelling urine, pt verbalizes relief
[2023-09-12 14:51] LABS: ~Lactic Acid-LAB USE ONLY 2.3 mmol/L (0.5-2.0)
[2023-09-12 16:03] LABS: Reflex Lactate? 2 Y
[2023-09-12 17:04] LABS: ~Lactic Acid-LAB USE ONLY 2.6 mmol/L (0.5-2.0)
[2023-09-12 17:20] LABS: Hematocrit 38.3 % (42.0-52.0); Hemoglobin 13.8 g/dl (14.0-18.0); Mean Corpuscular Hemoglobin 30.7 pg (27.0-33.0); Mean Corpuscular Volume 85.3 fL (80.0-98.0); Mean Platelet Volume 9.9 fL (9.4-12.4); Platelet Count 108 X10*3/uL (160-400); Red Blood Count 4.49 X10*6/uL (4.60-5.80); Red Cell Distribution Width 13.2 % (11.0-16.0)
--- NOTE | 2023-09-12 17:30 | PC.NURSE ---
pt complains of bladder pressure again- 214mls in bladder per scanner- MD prieto aware- ordered to have pt ambulatate an see if pt can initiate stream- pt attepted to void- unable to start stream only dribbling urine at this time
[2023-09-12 17:33] LABS: Anion Gap 13 (12-20); Blood Urea Nitrogen 19 mg/dL (9-16); Calcium 8.1 mg/dL (8.4-10.2); Carbon Dioxide 24 mmol/L (22-29); Chloride 105 mmol/L (96-108); Estimated Glomerular Filt Rate 54; Glucose Random 130 mg/dL (60-115); Potassium 3.9 mmol/L (3.3-5.1); Sodium 138 mmol/L (135-145)
[2023-09-12 18:30] LABS: Lymphocytes Percent Manual 5 % (20-40); Metamyelocytes Percent 5 %; Monocytes Absolute Manual 1.1 X10*3/uL (0.1-1.2); Monocytes Percent Manual 6 % (2-11)
[2023-09-12 18:31] LABS: Neutrophils Percent Manual 65 % (45-73)
[2023-09-12 18:36] LABS: Band Neutrophils Percent 19 % (3-5); RBC Morphology NOTED
[2023-09-12 18:37] LABS: Platelet Estimate SLIGHTLY DECREASED (NORMAL); Platelet Morphology Comment NORM; Toxic Vacuolation PRESENT
--- NOTE | 2023-09-12 19:34 | PHA.MEDREC ---
Pharmacy Consult ? Medication Reconciliation Pharmacy has completed the medication reconciliation. Patient has list from provider office. HCTZ not on claim history but patient reports taking it. Claim history is for Hydralazine 75 mg TID and list is for hydralazine 150 mg TID, and patient confirmed he is taking 75 mg. Damari López, JenniferD
--- NOTE | 2023-09-12 19:53 | P.HPHOSP_ITS ---
History of Present Illness Date of Service: 09/12/23 Attending physician on admission: Dylan Cervantes Chief Complaint: RLQ and flank pain, fevers 63-year-old male with history of hypertension, [id number]-[id number] type 2 diabetes, hyperlipidemia, and BPH following with [facility]rology presented to the ED earlier today for evaluation of right lower quadrant and flank/low back pain as well as nausea, vomiting, subjective fevers and chills ongoing for several days. He states he has been unable to tolerate much p.o.. He denies any rectal pain. No melena, hematochezia, diarrhea, cough, shortness of breath, lightheadedness, chest pain. He denies any dysuria, hematuria, urgency but does state he has had weak urinary stream with decreased urinary output. On arrival, febrile to 102.2, tachycardic to 121 with soft blood pressures of 96/69 improved to 136/83 on admission following IV fluid bolus. On admission, has a leukocytosis of 19.0 with 19% bandemia and platelets 108. Initial creatinine 1.52, baseline 1.20 with repeat creatinine 1.34 following IV fluids. BUN 19. Electrolyte levels normal. Initial lactic acid 2.2, repeat 2.3, repeat 2.6, likely multifactorial in setting of severe sepsis and metformin use. Total bilirubin 1.6, transaminases within normal limits. CT abdomen/pelvis negative for acute intra abdominal/intrapelvic abnormality and previously visualized 1.7 mm right renal calculi no longer seen. Prostate gland markedly enlarged measuring 6.3 x 7.2 cm that is heterogenous in attenuation and contains multiple urinalysis with moderate leukocytes, negative nitrites, trace blood, significant 4+ protein, elevated specific gravity, positive urinary sediment, 4+ bacteria. In the ED, started on IV cefepime for suspected prostatitis with severe sepsis. Has received 2 L IV NS, ketorolac x2, ondansetron. Review of Systems 2 Review of Systems: General: No fevers, malaise, unintentional weight loss HEENT: No blurred vision, diplopia. No sore throat, nasal congestion, rhinorrhea, sinus pain, ear pain Cardiovascular: No chest pain, palpitations, or leg edema Respiratory: No shortness of breath, wheezing, cough GI: +abd pain, +n/v. No diarrhea, constipation, melena, hematochezia : +decreased urinary output, +weak urinary stream. No dysuria, hematuria, increased urinary frequency MSK: +back pain. No myalgia Neuro: No headaches, weakness, paresthesias Skin: No rashes or lesions [facility] Medical History Prostatitis Hyperlipidemia BPH (benign prostatic hyperplasia) Diabetes 1.5, managed as type 2 HTN (hypertension) Surgical History History of knee surgery Social History Advance Directives: No Advance Directives Information Provided: Yes Do you have a plan to hurt others: No Plan Meds Allergies Allergy/AdvReac Type Severity Reaction Status Date / Time nut - unspecified [NUTS] Allergy Intermediate ITCHY Verified 09/12/23 10:00 THROAT nitroglycerin [NITROGLYCERIN] AdvReac Unknown HEADACHES Verified 09/12/23 10:00 BREAD Allergy Mild RUNNY NOSE Uncoded 09/12/23 09:57 Lopid Allergy Unknown Unknown Uncoded 09/12/23 09:57 nsaids Allergy Unknown Unknown Uncoded 09/12/23 09:57 Percocet Allergy Unknown Unknown Uncoded 09/12/23 09:57 Active Medications: Current Medications Acetaminophen (Acetaminophen 325 Mg Tablet) 650 mg PO Q6H PRN PRN Reason: Pain, Mild (Pain Scale 1-3) Heparin Sodium (Porcine) (Heparin Sodium,Porcine 5,000 Unit/Ml Vial) 5,000 unit SUBCUT Q12H [facility] Cefepime HCl 2 gm/ Sodium (Chloride) 50 mls @ 100 mls/hr IV Q12H [facility] Ondansetron HCl (Ondansetron Hcl 4 Mg/2 Ml Vial) 4 mg IVPUSH Q8H PRN PRN Reason: Nausea and Vomiting Oxycodone HCl (Oxycodone Hcl Immed Release 5 Mg Tablet) 5 mg PO Q6H PRN PRN Reason: Pain, Severe (Pain Scale 7-10) Senna (Sennosides 8.6 Mg Tablet) 17.2 mg PO BEDTIME PRN PRN Reason: Constipation Sodium Chloride (0.9 % Sodium Chloride Flush 3 Ml Syringe) 3 ml IVFLUSH QSHIFT [facility] Home Medications ?Medication ?Instructions ?Recorded ?Confirmed ?Last Taken ?Type amlodipine 5 mg tablet 5 mg PO DAILY 09/16/21 09/12/23 Unknown History lisinopril 40 mg tablet 40 mg PO DAILY 09/16/21 09/12/23 Unknown History meloxicam 15 mg tablet 15 mg PO DAILY 09/16/21 09/12/23 Unknown History metformin 500 mg tablet,extended 500 mg PO DAILY@1800 09/16/21 09/12/23 Unknown History release 24 hr metoprolol succinate 25 mg 25 mg PO DAILY 09/16/21 09/12/23 Unknown History tablet,extended release 24 hr omeprazole 20 mg capsule,delayed 20 mg PO BID 09/16/21 09/12/23 Unknown History release tamsulosin 0.4 mg capsule 0.4 mg PO DAILY 09/16/21 09/12/23 Unknown History fluticasone propionate 50 1 spray intranasal DAILY PRN 09/12/23 09/12/23 Unknown History mcg/actuation nasal Congestion spray,suspension hydralazine 50 mg tablet 75 mg PO TID 09/12/23 09/12/23 Unknown History hydrochlorothiazide 12.5 mg tablet 12.5 mg PO DAILY 09/12/23 09/12/23 Unknown History Physical Exam 2 Vital Signs and Narrative: Vital Signs: Last Vital Signs Temp 99.2 F 09/12/23 18:56 Pulse 114 H 09/12/23 18:56 Resp 20 09/12/23 18:56 BP 136/83 09/12/23 18:56 Pulse Ox 100 09/12/23 18:56 O2 Del Method Room Air 09/12/23 18:56 BMI result Body Mass Index 25.0 Constitutional - Awake and Alert, No apparent distress Eyes - PERRLA, EOMI Cardiovascular - S1S2, RRR, No edema Respiratory - Normal lung expansion, Normal respiratory effort, No respiratory distress, CTA bilaterally Gastrointestinal - RLQ ttp, ND; +BS; No rebound or guarding - No CVA tenderness Rectal- 3+ enlarged boggy prostate with ttp Extremities - no calf tenderness bilaterally, no swelling Musculoskeletal - no midline back pain, right-sided paraspinal tenderness to palpation Skin - Warm/Dry Neurological - Alert & oriented x3 Psychological - Appropriate affect Results Labs 09/12/23 17:13 09/12/23 17:13 Labs: Laboratory Results - last 24 hr 09/12/23 09/12/23 09/12/23 10:30 11:36 13:03 MCV 84.5 MCH 30.8 MCHC 36.4 H RDW 13.0 Plt Count 150 L D MPV 10.0 Immature Gran % (Auto) Cancelled Neut % (Auto) Cancelled Lymph % (Auto) Cancelled [place] % (Auto) Cancelled Eos % (Auto) Cancelled Baso % (Auto) Cancelled Lymph # (Auto) Cancelled [place] # (Auto) Cancelled Eos # (Auto) Cancelled Baso # (Auto) Cancelled Abs Immat Gran (auto) Cancelled Absolute Neuts (auto) Cancelled Absolute Nucleated RBC 0.000 Nucleated RBC % (auto) 0.0 Neutrophils % (Manual) 73 Band Neutrophils % 20 H Lymphocytes % (Manual) 3 L Monocytes % (Manual) 2 Metamyelocytes % 1 Myelocytes % 1 Abs Neuts (Manual) 24.6 H Lymphocytes # (Manual) 0.8 L Monocytes # (Manual) 0.5 Metamyelocytes # 0.3 Myelocytes # 0.3 Toxic Vacuolation Platelet Estimate NORMAL Plt Morphology Comment NORMAL RBC Morphology NORMAL Anion Gap 14 Estim Creat Clear Calc 43.2 Estimated GFR 47 Random Glucose 177 H Lactic Acid 2.2 H* Lactic Acid F/U @ 2Hr Lactic Acid F/U @ 4Hr Calcium 9.3 Total Bilirubin 1.6 H AST 21 ALT 26 Alkaline Phosphatase 105 Total Protein 6.9 Albumin 3.7 Lipase 25 Urine Color Dark Yellow Urine Appearance Turbid Urine pH 7.5 Ur Specific [place] >= 1.030 H Urine Protein >=1000 (4+) H Urine Glucose (UA) Negative Urine Ketones Trace Urine Blood Trace H Urine Nitrite Negative Ur Leukocyte Esterase Moderate (2+) H Urine RBC 6-10 H Urine WBC >50 H Ur Squamous Epith Cells 0-2 Urine Bacteria 4+ Hyaline Casts 0-2 09/12/23 09/12/23 09/12/23 13:59 16:41 17:13 MCV 85.3 MCH 30.7 MCHC 36.0 RDW 13.2 Plt Count 108 L D MPV 9.9 Immature Gran % (Auto) Cancelled Neut % (Auto) Cancelled Lymph % (Auto) Cancelled [place] % (Auto) Cancelled Eos % (Auto) Cancelled Baso % (Auto) Cancelled Lymph # (Auto) Cancelled [place] # (Auto) Cancelled Eos # (Auto) Cancelled Baso # (Auto) Cancelled Abs Immat Gran (auto) Cancelled Absolute Neuts (auto) Cancelled Absolute Nucleated RBC 0.000 Nucleated RBC % (auto) 0.0 Neutrophils % (Manual) 65 Band Neutrophils % 19 H Lymphocytes % (Manual) 5 L Monocytes % (Manual) 6 Metamyelocytes % 5 Myelocytes % Abs Neuts (Manual) 16.0 H Lymphocytes # (Manual) 1.0 L Monocytes # (Manual) 1.1 Metamyelocytes # 1.0 Myelocytes # Toxic Vacuolation PRESENT Platelet Estimate SLIGHTLY DECREASED Plt Morphology Comment NORM RBC Morphology NOTED Anion Gap 13 Estim Creat Clear Calc 49.0 Estimated GFR 54 Random Glucose 130 H Lactic Acid Lactic Acid F/U @ 2Hr 2.3 H* Lactic Acid F/U @ 4Hr 2.6 H* Calcium 8.1 L D Total Bilirubin AST ALT Alkaline Phosphatase Total Protein Albumin Lipase Urine Color Urine Appearance Urine pH Ur Specific [place] Urine Protein Urine Glucose (UA) Urine Ketones Urine Blood Urine Nitrite Ur Leukocyte Esterase Urine RBC Urine WBC Ur Squamous Epith Cells Urine Bacteria Hyaline Casts Imaging Radiologist's Impressions: Impressions Abdomen/Pelvis CT 09/12/23 14:10 IMPRESSION: No acute intra-abdominal/intrapelvic abnormality. The previously identified 1.7 mm right renal calculus is no longer seen. The prostate gland is markedly enlarged measuring 6.3 x 7.2 cm. It is heterogeneous in attenuation and contains multiple calcifications. Fleischner guidelines were followed. Assessment and Plan (1) Urinary retention: Status: Acute (2) ALESSANDRA (acute kidney injury): Status: Acute (3) Acute prostatitis: Status: Acute (4) Severe sepsis: Status: Acute Plan 63-year-old male with history of hypertension, [id number] type 2 diabetes, hyperlipidemia, and BPH following with [facility] urology admitted for further management of acute prostatitis with severe sepsis. # acute prostatitis with severe sepsis -leukocytosis 19.0 with 19% bandemia, tachycardic, febrile to 102.2. Acute lactic acidosis likely multifactorial related to severe sepsis and metformin use -CT abdomen/pelvis shows a significantly enlarged prostate measuring 6 x 7 cm but no acute intra-abdominal/intrapelvic abnormality -UA with 2+ leukocytes, trace blood, elevated specific gravity, 4+ protein, positive urinary sediment, 4+ bacteria -IV cefepime (initiated 09/11) -Lopez catheter -urology consult -follow CBC, cultures # acute urinary retention with acute kidney injury -due to prostate enlargement -creatinine on arrival 1.52, baseline 1.20 -Lopez catheter inserted, urology consult -avoid nephrotoxins -monitor I&O -follow renal function, electrolytes -continue IVF # significant proteinuria -check total urine protein and urine creatinine -lisinopril on hold due to ALESSANDRA but will resume on discharge -outpatient follow-up with Nephrology # Hyperbilirubinemia -r/t infection #ACute thombocytopenia -r/t infection # BPH -as above -continue Flomax # [id number] type 2 diabetes -POC glucose, diabetic diet -Humalog on sliding scale -hold metformin # hypertension -blood pressures initially soft but normotensive on admission -hold lisinopril and hydrochlorothiazide in setting of ALESSANDRA -resume hydralazine and metoprolol a.m. -follow blood pressures # hyperlipidemia -statin # GERD -PPI DVT prophylaxis-Lovenox Full code Patient requires inpatient stay at least 2 midnights for management of acute prostatitis with severe sepsis and ALESSANDRA with urinary retention requiring IV antibiotics, IV fluid resuscitation, expert consultation, and close monitoring of renal function, electrolyte levels and fluid status. Quality Stroke Does the patient have a stroke diagnosis?: No VTE Prior VTE?: No VTE Risk Level:: Medical - moderate - high VTE Device Contraindication: Treatment Not Indicated VTE Drug Contraindication: N/A - Med Ordered
[2023-09-12] MEDS: Lidocaine 4 % Patch ADH..PATCH 1 PATCH TRANSDERMA (19:59)
--- NOTE | 2023-09-12 19:59 | PC.NURSE ---
16fr orona placed, 300mls brick red urine immediately drained into orona back- pt verbalizes some relief- pt to rec toradol and lido patch
[2023-09-12] MEDS: Heparin Sodium,Porcine 5,000 UNIT/ML VIAL 5000 UNIT SUBCUT (22:05)
[2023-09-12] MEDS: oxyCODONE HCl Immed Release 5 MG TABLET PO (22:06)
[2023-09-12 22:14] LABS: Glucose, Whole Blood 155 mg/dL (60-115)
[2023-09-12] MEDS: 0.9 % Sodium Chloride 1,000 ML 100 ML IVCONT (22:21)
[2023-09-12] MEDS: Insulin Lispro 100 UNIT/ML 3 ML VIAL SUBCUT (22:26)
[2023-09-13] VITALS (11 sets, daily range): BP systolic 92–133; BP diastolic 70–81; PULSE 82–98; RESP 14–25; TEMP 36.7–38.1; O2SAT 95–98
[2023-09-13] MEDS: cefEPime HCl 2 GM in 0.9 % Sodium Chloride 50 ML IV ×2 (01:26→12:43)
[2023-09-13 04:11] LABS: Creatinine Urine 275.66 mg/dL; Total Protein Urine Random 186 mg/dL (<12)
[2023-09-13 04:56] LABS: Hematocrit 36.9 % (42.0-52.0); Hemoglobin 12.8 g/dl (14.0-18.0); Mean Corpuscular HGB Conc 34.7 g/dl (31.0-36.0); Mean Corpuscular Hemoglobin 30.4 pg (27.0-33.0); Mean Corpuscular Volume 87.6 fL (80.0-98.0); Mean Platelet Volume 10.9 fL (9.4-12.4); Red Blood Count 4.21 X10*6/uL (4.60-5.80); Red Cell Distribution Width 13.7 % (11.0-16.0); White Blood Count 21.8 X10*3/uL (4.8-10.8)
[2023-09-13 04:58] LABS: Platelet Count 98 X10*3/uL (160-400)
[2023-09-13 05:13] LABS: Anion Gap 13 (12-20); Blood Urea Nitrogen 24 mg/dL (9-16); Calcium 8.2 mg/dL (8.4-10.2); Carbon Dioxide 24 mmol/L (22-29); Chloride 104 mmol/L (96-108); Creatinine Clr Calc Pharmacy 46.3; Estimated Glomerular Filt Rate 50; Glucose Random 132 mg/dL (60-115); Sodium 137 mmol/L (135-145)
[2023-09-13] MEDS: Omeprazole 20 MG CAPSULE.DR PO ×2 (06:22→18:33)
[2023-09-13] MEDS: 0.9 % Sodium Chloride 1,000 ML 100 ML IVCONT ×2 (06:23→18:37)
[2023-09-13] MEDS: Acetaminophen 325 MG TABLET 650 MG PO (07:04)
--- NOTE | 2023-09-13 07:09 | PC.NURSE ---
patient is resting in bed, alert and oriented x3. patient noted to be febrile, medicated per mar with prn tylenol. patient has 100ml/hr normal saline running. VSS. 200 ml urine emptied from orona bag, red tinged.
[2023-09-13 07:11] LABS: Glucose, Whole Blood 133 mg/dL (60-115)
[2023-09-13] MEDS: amLODIPine Besylate 5 MG TABLET PO (09:08)
[2023-09-13] MEDS: hydrALAZINE HCl 25 MG TABLET 75 MG PO ×3 (09:08→20:32)
[2023-09-13] MEDS: Heparin Sodium,Porcine 5,000 UNIT/ML VIAL 5000 UNIT SUBCUT (09:08)
[2023-09-13] MEDS: Tamsulosin HCL 0.4 MG CAPSULE PO (09:08)
[2023-09-13] MEDS: Metoprolol Succinate ER 25 MG TAB.ER.24H PO (09:08)
--- NOTE | 2023-09-13 10:23 | MHC.CM.PN ---
CM met with Patient in the ED,at bedside and addressed IMM with him(original was given to Patient and a copy has been placed on the chart). Patient lives in an apartment with his and 2 Sons, ages 14 & 17 years of age. Home/self care is the goal and CM has initiated and will follow for dc planning. PCP is Dr. Torres.
[2023-09-13 12:39] LABS: Glucose, Whole Blood 195 mg/dL (60-115)
[2023-09-13] MEDS: Insulin Lispro 100 UNIT/ML 3 ML VIAL SUBCUT ×3 (12:43→21:39)
[2023-09-13] MEDS: oxyCODONE HCl Immed Release 5 MG TABLET PO (12:47)
--- NOTE | 2023-09-13 12:58 | PC.NURSE ---
Patient c/o pressure, feels like he has to pee w/ no urine draining from catether. Cath secure found to be tight, inverting catheter upwards. Cath secure repositioned, bladder scanned for 0ccs, johana clear urine draining once repositioned, patient medicated for pain per mar. Otherwise resting quietly on stretcher at this time, awaiting bed assignment.
--- NOTE | 2023-09-13 13:01 | PC.NURSE ---
Patient provided kidney dr. : [phone], and prostate dr: [phone], does not know their names.
--- NOTE | 2023-09-13 15:04 | P.CONNP_ITS ---
History of Present Illness Reason for Consult Consult date: 09/13/23 Reason for consult: ALESSANDRA Chief Complaint Chief complaint: Severe sepsis, prostatitis History of Present Illness Narrative: 63-year-old male with history of hypertension, qev-fpdtntg-bcgszdhdl type 2 diabetes, hyperlipidemia, and BPH following with [facility] presented to the ED earlier today for evaluation of right lower quadrant and flank/low back pain as well as nausea, vomiting, subjective fevers and chills ongoing for several days. He states he has been unable to tolerate much p.o.. He denies any rectal pain Baseline creatinine is around 1.2. Currently per creatinine is 1.4. Lopez has been inserted. He has Gram-negative bacteremia. Review of Systems Constitutional: Denies fever(s) and Denies weight loss Cardiovascular: Denies chest pain Respiratory: Denies cough and Denies hemoptysis Gastrointestinal: Denies abdominal pain, Denies diarrhea and Denies nausea Musculoskeletal: Denies back pain Denies focal weakness PMFSH Past Medical History Medical History Prostatitis Hyperlipidemia BPH (benign prostatic hyperplasia) Diabetes 1.5, managed as type 2 HTN (hypertension) Surgical History Surgical History History of knee surgery Social History Social History Patient Tobacco Use Status: Never used Tobacco Advance Directives: No Advance Directives Information Provided: Yes Do you have a plan to hurt others: No Plan Nutrition Risks: No Nutritional Risk service: No Meds Allergies Allergy/AdvReac Type Severity Reaction Status Date / Time nut - unspecified [NUTS] Allergy Intermediate ITCHY Verified 09/12/23 10:00 THROAT nitroglycerin [NITROGLYCERIN] AdvReac Unknown HEADACHES Verified 09/12/23 10:00 BREAD Allergy Mild RUNNY NOSE Uncoded 09/12/23 09:57 Lopid Allergy Unknown Unknown Uncoded 09/12/23 09:57 nsaids Allergy Unknown Unknown Uncoded 09/12/23 09:57 Percocet Allergy Unknown Unknown Uncoded 09/12/23 09:57 Active Medications: Current Medications Acetaminophen (Acetaminophen 325 Mg Tablet) 650 mg PO Q6H PRN PRN Reason: Pain, Mild (Pain Scale 1-3) Last Admin: 09/13/23 07:04 Dose: 650 mg Amlodipine Besylate (Amlodipine Besylate 5 Mg Tablet) 5 mg PO DAILY [facility]; Protocol Last Admin: 09/13/23 09:08 Dose: 5 mg Fluticasone Propionate (Fluticasone Propionate Nasal 16 Gm [place]) 1 spray NOSTRIL-B DAILY PRN PRN Reason: Congestion Glucose (Glucose Gel 15 Gm Gel..Gram.) 15 gm PO Q15M PRN; Protocol PRN Reason: per Hypoglycemia Standing Ord. Heparin Sodium (Porcine) (Heparin Sodium,Porcine 5,000 Unit/Ml Vial) 5,000 unit SUBCUT Q12H [facility] Last Admin: 09/13/23 09:08 Dose: 5,000 unit Hydralazine HCl (Hydralazine Hcl 25 Mg Tablet) 75 mg PO TID [facility]; Protocol Last Admin: 09/13/23 09:08 Dose: 75 mg Cefepime HCl 2 gm/ Sodium (Chloride) 50 mls @ 100 mls/hr IV Q12H [facility] Last Infusion: 09/13/23 13:15 Dose: Infused Dextrose (D10) 250 mls @ 750 mls/hr IV Q15M PRN; Protocol PRN Reason: per Hypoglycemia Standing Ord. Sodium Chloride (Ns) 1,000 mls @ 100 mls/hr IVCONT .Q10H [facility] Last Admin: 09/13/23 06:23 Dose: 100 mls/hr Insulin Human Lispro (Insulin Lispro 100 Unit/Ml 3 Ml Vial) 0 unit SUBCUT QIDACHS [facility]; Protocol Last Admin: 09/13/23 12:43 Dose: 2 unit Metoprolol Succinate (Metoprolol Succinate Er 25 Mg Tab.Er.24h) 25 mg PO DAILY [facility]; Protocol Last Admin: 09/13/23 09:08 Dose: 25 mg Omeprazole (Omeprazole 20 Mg Capsule.Dr) 20 mg PO BID@0630,1630 [facility] Last Admin: 09/13/23 06:22 Dose: 20 mg Ondansetron HCl (Ondansetron Hcl 4 Mg/2 Ml Vial) 4 mg IVPUSH Q8H PRN PRN Reason: Nausea and Vomiting Oxycodone HCl (Oxycodone Hcl Immed Release 5 Mg Tablet) 5 mg PO Q6H PRN PRN Reason: Pain, Severe (Pain Scale 7-10) Last Admin: 09/13/23 12:47 Dose: 5 mg Senna (Sennosides 8.6 Mg Tablet) 17.2 mg PO BEDTIME PRN PRN Reason: Constipation Sodium Chloride (0.9 % Sodium Chloride Flush 3 Ml Syringe) 3 ml IVFLUSH QSHIFT [facility] Last Admin: 09/13/23 09:14 Dose: Not Given Tamsulosin HCl (Tamsulosin Hcl 0.4 Mg Capsule) 0.8 mg PO BEDTIME [facility] Home Medications ?Medication ?Instructions ?Recorded ?Confirmed ?Last Taken ?Type amlodipine 5 mg tablet 5 mg PO DAILY 09/16/21 09/12/23 Unknown History lisinopril 40 mg tablet 40 mg PO DAILY 09/16/21 09/12/23 Unknown History meloxicam 15 mg tablet 15 mg PO DAILY 09/16/21 09/12/23 Unknown History metformin 500 mg tablet,extended 500 mg PO DAILY@1800 09/16/21 09/12/23 Unknown History release 24 hr metoprolol succinate 25 mg 25 mg PO DAILY 09/16/21 09/12/23 Unknown History tablet,extended release 24 hr omeprazole 20 mg capsule,delayed 20 mg PO BID 09/16/21 09/12/23 Unknown History release tamsulosin 0.4 mg capsule 0.4 mg PO DAILY 09/16/21 09/12/23 Unknown History fluticasone propionate 50 1 spray intranasal DAILY PRN 09/12/23 09/12/23 Unknown History mcg/actuation nasal Congestion spray,suspension hydralazine 50 mg tablet 75 mg PO TID 09/12/23 09/12/23 Unknown History hydrochlorothiazide 12.5 mg tablet 12.5 mg PO DAILY 09/12/23 09/12/23 Unknown History Physical Exam Vital Signs: Last Vital Signs Temp 98.6 F 09/13/23 12:56 Pulse 84 09/13/23 12:56 Resp 24 H 09/13/23 12:56 BP 117/76 09/13/23 12:56 Pulse Ox 97 09/13/23 12:56 O2 Del Method Room Air 09/13/23 12:56 BMI result Body Mass Index 25.0 Const General: comfortable Nutritional Appearance: well nourished Orientation/consciousness: patient oriented x3 HEENT Head: No normal to inspection Mouth: moist mucous membranes Neck Neck: Yes supple and Yes no JVD Resp Auscultation: clear to auscultation bilaterally, no rales and rub present Cardio Jugular venous distension: no JVD Palpation: no palpable S3 and no palpable S4 Heart sounds: no rubs GI Palpation (GI): Soft to palpation and nontender Percussion: No Fluid wave present General: Yes no CVA tenderness Back/Spine/Pelvis Back: no CVA tenderness Skin General skin exam: no rashes or lesions noted Neuro General: patient oriented x3 Extrem General: Yes no pedal edema and No clubbing Results Lab Results 09/13/23 04:12 09/13/23 04:12 Lab results: Chemistry 09/12/23 09/12/23 09/13/23 10:30 17:13 04:12 Sodium 136 138 137 Potassium 3.6 3.9 4.0 Carbon Dioxide 27 24 BUN 19 H 19 H 24 H Creatinine 1.52 H 1.34 1.42 H Calcium 9.3 8.1 L D 8.2 L Hematology 09/12/23 09/12/23 09/13/23 10:30 17:13 04:12 WBC 26.4 H 19.0 H 21.8 H Hgb 15.7 13.8 L 12.8 L Plt Count 150 L D 108 L D 98 L Urinalysis 09/12/23 13:03 Urine Color Dark Yellow Urine Appearance Turbid Urine pH 7.5 Ur Specific [place] >= 1.030 H Urine Protein >=1000 (4+) H Urine Glucose (UA) Negative Urine Ketones Trace Urine Blood Trace H Urine Nitrite Negative Ur Leukocyte Esterase Moderate (2+) H Urine RBC 6-10 H Urine WBC >50 H Ur Squamous Epith Cells 0-2 Hyaline Casts 0-2 Urine Studies 09/13/23 03:51 Urine Creatinine 275.66 Assessment and Plan (1) ALESSANDRA (acute kidney injury): Status: Acute Plan Middle-aged man with ALESSANDRA superimposed on mild CKD in a setting of bacteremia. ALESSANDRA most likely due to hypoperfusion setting of sepsis. Urinary retention is a possibility based on clinical findings. Underlying AGN or AIN seem unlikely. Recommendation Keep Lopez Agree with antibiotic coverage. Keep intake more than output. Avoid hypoperfusion Maintain systolic blood pressure more than 100 mm Hg Hold lisinopril, hydrochlorothiazide, meloxicam Monitor renal function we will follow along with the team Procedures Date of Service Date of Service: 09/13/23
[2023-09-13] MEDS: 0.9 % Sodium Chloride Flush 3 ML SYRINGE IVFLUSH ×2 (15:35→18:33)
[2023-09-13 16:26] LABS: Glucose, Whole Blood 178 mg/dL (60-115)
--- NOTE | 2023-09-13 17:36 | P.PNIM_ITS ---
Subjective Subjective Date of Service: 09/13/23 Interval History: Acute prostatitis and sepsis Review of Systems Fevers or slowly improving, also urinary symptoms are improving Denies any chest pain shortness for breath Physical Exam 2 Vital Signs: Vital Signs: Last Vital Signs Temp 98.1 F 09/13/23 16:00 Pulse 88 09/13/23 16:00 Resp 20 09/13/23 16:00 BP 125/75 09/13/23 16:00 Pulse Ox 96 09/13/23 16:00 O2 Del Method Room Air 09/13/23 16:00 BMI result Body Mass Index 25.0 Appearance: Alert.? Oriented X3.? cvs: rrr, [id number] , no murmur res: clear to auscultation ,no rhonchii or wheezing abd: no rebound or guarding ,nt, bs present. ext pulses present , no cyanosis . neuro: axo3 , nonfocal. The Objective Data Active Medications Acetaminophen (Acetaminophen 325 Mg Tablet) 650 mg PO Q6H PRN PRN Reason: Pain, Mild (Pain Scale 1-3) Last Admin: 09/13/23 07:04 Dose: 650 mg Documented By: LILY Amlodipine Besylate (Amlodipine Besylate 5 Mg Tablet) 5 mg PO DAILY [facility]; Protocol Last Admin: 09/13/23 09:08 Dose: 5 mg Documented By: LILY Fluticasone Propionate (Fluticasone Propionate Nasal 16 Gm [place]) 1 spray NOSTRIL-B DAILY PRN PRN Reason: Congestion Glucose (Glucose Gel 15 Gm Gel..Gram.) 15 gm PO Q15M PRN; Protocol PRN Reason: per Hypoglycemia Standing Ord. Heparin Sodium (Porcine) (Heparin Sodium,Porcine 5,000 Unit/Ml Vial) 5,000 unit SUBCUT Q12H [facility] Last Admin: 09/13/23 09:08 Dose: 5,000 unit Documented By: LILY Hydralazine HCl (Hydralazine Hcl 25 Mg Tablet) 75 mg PO TID [facility]; Protocol Last Admin: 09/13/23 15:34 Dose: 75 mg Documented By: ADRIEN Cefepime HCl 2 gm/ Sodium (Chloride) 50 mls @ 100 mls/hr IV Q12H [facility] Last Infusion: 09/13/23 13:15 Dose: Infused Documented By: ADRIEN Dextrose (D10) 250 mls @ 750 mls/hr IV Q15M PRN; Protocol PRN Reason: per Hypoglycemia Standing Ord. Sodium Chloride (Ns) 1,000 mls @ 100 mls/hr IVCONT .Q10H [facility] Last Admin: 09/13/23 06:23 Dose: 100 mls/hr Documented By: BEAN Insulin Human Lispro (Insulin Lispro 100 Unit/Ml 3 Ml Vial) 0 unit SUBCUT QIDACHS [facility]; Protocol Last Admin: 09/13/23 12:43 Dose: 2 unit Documented By: ADRIEN Metoprolol Succinate (Metoprolol Succinate Er 25 Mg Tab.Er.24h) 25 mg PO DAILY [facility]; Protocol Last Admin: 09/13/23 09:08 Dose: 25 mg Documented By: LILY Omeprazole (Omeprazole 20 Mg Capsule.Dr) 20 mg PO BID@0630,1630 [facility] Last Admin: 09/13/23 06:22 Dose: 20 mg Documented By: BEAN Ondansetron HCl (Ondansetron Hcl 4 Mg/2 Ml Vial) 4 mg IVPUSH Q8H PRN PRN Reason: Nausea and Vomiting Oxycodone HCl (Oxycodone Hcl Immed Release 5 Mg Tablet) 5 mg PO Q6H PRN PRN Reason: Pain, Severe (Pain Scale 7-10) Last Admin: 09/13/23 12:47 Dose: 5 mg Documented By: ADRIEN Senna (Sennosides 8.6 Mg Tablet) 17.2 mg PO BEDTIME PRN PRN Reason: Constipation Sodium Chloride (0.9 % Sodium Chloride Flush 3 Ml Syringe) 3 ml IVFLUSH QSHIFT [facility] Last Admin: 09/13/23 15:35 Dose: 3 ml Documented By: ADRIEN Tamsulosin HCl (Tamsulosin Hcl 0.4 Mg Capsule) 0.8 mg PO BEDTIME [facility] Labs 09/13/23 04:12 09/13/23 04:12 Labs: Laboratory Results - last 24 hr 09/12/23 09/12/23 09/13/23 17:13 22:10 03:51 MCV MCH MCHC RDW Plt Count MPV Absolute Nucleated RBC Nucleated RBC % (auto) Neutrophils % (Manual) 65 Band Neutrophils % 19 H Lymphocytes % (Manual) 5 L Monocytes % (Manual) 6 Metamyelocytes % 5 Abs Neuts (Manual) 16.0 H Lymphocytes # (Manual) 1.0 L Monocytes # (Manual) 1.1 Metamyelocytes # 1.0 Toxic Vacuolation PRESENT Platelet Estimate SLIGHTLY DECREASED Plt Morphology Comment NORM RBC Morphology NOTED Anion Gap Estim Creat Clear Calc Estimated GFR POC Glucose 155 H Random Glucose Calcium U Random Total Protein 186 H Urine Creatinine 275.66 09/13/23 09/13/23 09/13/23 04:12 07:03 12:34 MCV 87.6 MCH 30.4 MCHC 34.7 RDW 13.7 Plt Count 98 L MPV 10.9 Absolute Nucleated RBC 0.000 Nucleated RBC % (auto) 0.0 Neutrophils % (Manual) Band Neutrophils % Lymphocytes % (Manual) Monocytes % (Manual) Metamyelocytes % Abs Neuts (Manual) Lymphocytes # (Manual) Monocytes # (Manual) Metamyelocytes # Toxic Vacuolation Platelet Estimate Plt Morphology Comment RBC Morphology Anion Gap 13 Estim Creat Clear Calc 46.3 Estimated GFR 50 POC Glucose 133 H 195 H Random Glucose 132 H Calcium 8.2 L U Random Total Protein Urine Creatinine 09/13/23 16:22 MCV MCH MCHC RDW Plt Count MPV Absolute Nucleated RBC Nucleated RBC % (auto) Neutrophils % (Manual) Band Neutrophils % Lymphocytes % (Manual) Monocytes % (Manual) Metamyelocytes % Abs Neuts (Manual) Lymphocytes # (Manual) Monocytes # (Manual) Metamyelocytes # Toxic Vacuolation Platelet Estimate Plt Morphology Comment RBC Morphology Anion Gap Estim Creat Clear Calc Estimated GFR POC Glucose 178 H Random Glucose Calcium U Random Total Protein Urine Creatinine Microbiology Microbiology Results: Microbiology 09/12/23 12:32 Blood Culture - Preliminary Blood - Venous No growth after 24 hours. 09/12/23 11:36 Blood Culture - Preliminary Blood - Venous No growth after 24 hours. 09/12/23 Unknown Urine Culture - Preliminary Urine clean catch - Urine beebe top Gram negative yuniel Assessment and Plan (1) Severe sepsis: Status: Acute (2) Acute prostatitis: Status: Acute (3) Urinary retention: Status: Acute Plan 63-year-old male with history of hypertension, ciu-nbyqafd-ufvgqoxbj type 2 diabetes, hyperlipidemia, and BPH following with [facility] urology admitted for further management of acute prostatitis with severe sepsis. acute prostatitis with severe sepsis -leukocytosis, tachycardic, fever improving Acute lactic acidosis likely multifactorial related to severe sepsis and metformin use -CT abdomen/pelvis showed enlarged prostate ,UA with 2+ leukocytes, trace blood, elevated specific gravity, 4+ protein, positive urinary sediment, 4+ bacteria continue IV cefepime (initiated 09/11),Lopez catheter,cultures pending urology consult acute urinary retention with acute kidney injury-due to prostate enlargement -creatinine on arrival 1.42, baseline 1.20 has Lopez catheter inserted, urology /nephrology consult avoid nephrotoxins,monitor I&O ,follow renal function, electrolytes significant proteinuria -check total urine protein and urine creatinine -lisinopril on hold due to ALESSANDRA but will resume on discharge -outpatient follow-up with Nephrology Hyperbilirubinemia -r/t infection ACute thombocytopenia -r/t infection BPH -as above -continue Flomax [id number]-gdamdxwub type 2 diabetes -POC glucose, diabetic diet -Humalog on sliding scale -hold metformin hypertension -blood pressures initially soft but normotensive on admission -hold lisinopril and hydrochlorothiazide, nasids in setting of ALESSANDRA -resume hydralazine and metoprolol a.m. -follow blood pressures hyperlipidemia-statin GERD -PPI DVT prophylaxis-Lovenox Full code Patient requires inpatient stay for management of acute prostatitis with severe sepsis and ALESSANDRA with urinary retention requiring IV antibiotics, IV fluid resuscitation, expert consultation, and close monitoring of renal function, electrolyte levels and fluid status. Quality Stroke Does the patient have a stroke diagnosis?: No VTE Prior VTE?: No VTE Risk Level:: Medical - moderate - high VTE Device Contraindication: Treatment Not Indicated VTE Drug Contraindication: N/A - Med Ordered
[2023-09-13] MEDS: ondansetron HCL 4 MG/2 ML VIAL IVPUSH (18:32)
[2023-09-13] MEDS: Tamsulosin HCL 0.4 MG CAPSULE 0.8 MG PO (20:33)
[2023-09-13 20:50] LABS: Glucose, Whole Blood 163 mg/dL (60-115)
[2023-09-13] MEDS: Acetaminophen 325 MG TABLET 975 MG PO (21:37)
[2023-09-14] VITALS (9 sets, daily range): BP systolic 103–136; BP diastolic 68–87; PULSE 76–84; RESP 16–20; TEMP 36.2–37.8; O2SAT 93–98
--- NOTE | 2023-09-14 | ECG_ITS ---
Test Reason : chest pain Blood Pressure : / mmHG Vent. Rate : 076 BPM Atrial Rate : 076 BPM P-R Int : 162 ms QRS Dur : 128 ms QT Int : 390 ms P-R-T Axes : 051 -50 086 degrees QTc Int : 438 ms Normal sinus rhythm Left axis deviation Left ventricular hypertrophy with QRS widening ( R in aVL , Dieudonne product ) Nonspecific T wave abnormality Abnormal ECG When compared with ECG of 07-JUL-2020 10:05, No significant change was found Referred By: Cali Resendez Electronically Signed By:MIMI STAFFORD
[2023-09-14] MEDS: cefEPime HCl 2 GM in 0.9 % Sodium Chloride 50 ML IV ×2 (02:40→12:11)
[2023-09-14] MEDS: 0.9 % Sodium Chloride 1,000 ML 100 ML IVCONT (04:24)
[2023-09-14] MEDS: oxyCODONE HCl Immed Release 5 MG TABLET PO ×2 (05:58→16:33)
[2023-09-14] MEDS: Omeprazole 20 MG CAPSULE.DR PO ×2 (05:58→16:01)
--- NOTE | 2023-09-14 06:33 | PC.NURSE ---
pt found to have home medication in room including oxycodone. removed from bedside. counted with another nurse. aware. stored in pharmacy. pt was calm and cooperative and understanding about not having home prescriptions at the beside, or taking home medications while in hospital.
[2023-09-14 07:41] LABS: Glucose, Whole Blood 137 mg/dL (60-115)
[2023-09-14] MEDS: hydrALAZINE HCl 25 MG TABLET 75 MG PO ×3 (08:24→20:49)
[2023-09-14] MEDS: amLODIPine Besylate 5 MG TABLET PO (08:24)
[2023-09-14] MEDS: Metoprolol Succinate ER 25 MG TAB.ER.24H PO (08:24)
[2023-09-14 08:33] LABS: Hematocrit 37.7 % (42.0-52.0); Hemoglobin 13.4 g/dl (14.0-18.0); Mean Corpuscular HGB Conc 35.5 g/dl (31.0-36.0); Mean Corpuscular Hemoglobin 30.6 pg (27.0-33.0); Mean Corpuscular Volume 86.1 fL (80.0-98.0); Mean Platelet Volume 10.7 fL (9.4-12.4); Platelet Count 125 X10*3/uL (160-400); Red Blood Count 4.38 X10*6/uL (4.60-5.80); Red Cell Distribution Width 13.4 % (11.0-16.0); White Blood Count 15.2 X10*3/uL (4.8-10.8)
[2023-09-14 08:50] LABS: Anion Gap 13 (12-20); Blood Urea Nitrogen 18 mg/dL (9-16); Calcium 8.5 mg/dL (8.4-10.2); Carbon Dioxide 20 mmol/L (22-29); Chloride 107 mmol/L (96-108); Creatinine Clr Calc Pharmacy 56.2; Estimated Glomerular Filt Rate > 60; Glucose Random 156 mg/dL (60-115); Potassium 3.9 mmol/L (3.3-5.1); Sodium 136 mmol/L (135-145)
[2023-09-14] MEDS: Insulin Lispro 100 UNIT/ML 3 ML VIAL SUBCUT ×3 (12:07→20:49)
--- NOTE | 2023-09-14 14:56 | P.PNIM_ITS ---
Subjective Subjective Date of Service: 09/14/23 Interval History: Acute prostatitis and sepsis Review of Systems urinary symptoms are improving, 1episode of fever overnight Denies any chest pain shortness for breath Physical Exam 2 Vital Signs: Vital Signs: Last Vital Signs Temp 98.7 F 09/14/23 11:11 Pulse 81 09/14/23 11:11 Resp 18 09/14/23 11:11 BP 122/77 09/14/23 11:11 Pulse Ox 98 09/14/23 11:11 O2 Del Method Room Air 09/14/23 11:11 BMI result Body Mass Index 25.0 Appearance: Alert.? Oriented X3.? cvs: rrr, [id number] . res: clear to auscultation ,no rhonchii or wheezing abd: no rebound or guarding ,nt, bs present. ext pulses present , no cyanosis . neuro: axo3 , nonfocal. The Objective Data Active Medications Acetaminophen (Acetaminophen 325 Mg Tablet) 650 mg PO Q6H PRN PRN Reason: Pain, Mild (Pain Scale 1-3) Last Admin: 09/13/23 07:04 Dose: 650 mg Documented By: LILY Amlodipine Besylate (Amlodipine Besylate 5 Mg Tablet) 5 mg PO DAILY [facility]; Protocol Last Admin: 09/14/23 08:24 Dose: 5 mg Documented By: DANIELA Fluticasone Propionate (Fluticasone Propionate Nasal 16 Gm [place]) 1 spray NOSTRIL-B DAILY PRN PRN Reason: Congestion Glucose (Glucose Gel 15 Gm Gel..Gram.) 15 gm PO Q15M PRN; Protocol PRN Reason: per Hypoglycemia Standing Ord. Hydralazine HCl (Hydralazine Hcl 25 Mg Tablet) 75 mg PO TID [facility]; Protocol Last Admin: 09/14/23 08:24 Dose: 75 mg Documented By: DANIELA Cefepime HCl 2 gm/ Sodium (Chloride) 50 mls @ 100 mls/hr IV Q12H [facility] Last Infusion: 09/14/23 12:41 Dose: Infused Documented By: DANIELA Dextrose (D10) 250 mls @ 750 mls/hr IV Q15M PRN; Protocol PRN Reason: per Hypoglycemia Standing Ord. Insulin Human Lispro (Insulin Lispro 100 Unit/Ml 3 Ml Vial) 0 unit SUBCUT QIDACHS [facility]; Protocol Last Admin: 09/14/23 12:07 Dose: 2 unit Documented By: DANIELA Metoprolol Succinate (Metoprolol Succinate Er 25 Mg Tab.Er.24h) 25 mg PO DAILY [facility]; Protocol Last Admin: 09/14/23 08:24 Dose: 25 mg Documented By: DANIELA Omeprazole (Omeprazole 20 Mg Capsule.Dr) 20 mg PO BID@0630,1630 [facility] Last Admin: 09/14/23 05:58 Dose: 20 mg Documented By: SELINA Ondansetron HCl (Ondansetron Hcl 4 Mg/2 Ml Vial) 4 mg IVPUSH Q8H PRN PRN Reason: Nausea and Vomiting Last Admin: 09/13/23 18:32 Dose: 4 mg Documented By: AZUL Oxycodone HCl (Oxycodone Hcl Immed Release 5 Mg Tablet) 5 mg PO Q6H PRN PRN Reason: Pain, Severe (Pain Scale 7-10) Last Admin: 09/14/23 05:58 Dose: 5 mg Documented By: SELINA Senna (Sennosides 8.6 Mg Tablet) 17.2 mg PO BEDTIME PRN PRN Reason: Constipation Sodium Chloride (0.9 % Sodium Chloride Flush 3 Ml Syringe) 3 ml IVFLUSH QSHIFT [facility] Last Admin: 09/14/23 08:25 Dose: Not Given Documented By: DANIELA Non-Admin Reason: IV Running Tamsulosin HCl (Tamsulosin Hcl 0.4 Mg Capsule) 0.8 mg PO BEDTIME [facility] Last Admin: 09/13/23 20:33 Dose: 0.8 mg Documented By: SELINA Labs 09/14/23 08:16 09/14/23 08:16 Labs: Laboratory Results - last 24 hr 09/13/23 09/13/23 09/14/23 16:22 20:45 07:20 MCV MCH MCHC RDW Plt Count MPV Absolute Nucleated RBC Nucleated RBC % (auto) Anion Gap Estim Creat Clear Calc Estimated GFR POC Glucose 178 H 163 H 137 H Random Glucose Calcium 09/14/23 09/14/23 08:16 11:12 MCV 86.1 MCH 30.6 MCHC 35.5 RDW 13.4 Plt Count 125 L D MPV 10.7 Absolute Nucleated RBC 0.000 Nucleated RBC % (auto) 0.0 Anion Gap 13 Estim Creat Clear Calc 56.2 Estimated GFR > 60 POC Glucose 171 H Random Glucose 156 H Calcium 8.5 Microbiology Microbiology Results: Microbiology 09/12/23 12:32 Blood Culture - Preliminary Blood - Venous No growth after 48 hours. 09/12/23 11:36 Blood Culture - Preliminary Blood - Venous No growth after 48 hours. 09/12/23 Unknown Urine Culture - Final Urine clean catch - Urine beebe top Escherichia coli Assessment and Plan (1) Severe sepsis: Status: Acute (2) Acute prostatitis: Status: Acute (3) Urinary retention: Status: Acute Plan 63-year-old male with history of hypertension, fyx-sjfohoy-zxjaqsudd type 2 diabetes, hyperlipidemia, and BPH following with [facility] urology admitted for further management of acute prostatitis with severe sepsis. acute prostatitis with severe sepsis -leukocytosis, tachycardic, fever improving Acute lactic acidosis likely multifactorial related to severe sepsis and metformin use -CT abdomen/pelvis showed enlarged prostate ,UA with 2+ leukocytes, trace blood, elevated specific gravity, 4+ protein, positive urinary sediment, 4+ bacteria continue IV cefepime (initiated 09/11),Lopez catheter,cultures pending urology consult acute urinary retention with acute kidney injury-due to prostate enlargement -creatinine on arrival 1.42, baseline 1.20 has Lopez catheter inserted, urology /nephrology consult avoid nephrotoxins,monitor I&O ,follow renal function, electrolytes significant proteinuria -check total urine protein and urine creatinine -lisinopril on hold due to ALESSANDRA but will resume on discharge -outpatient follow-up with Nephrology Hyperbilirubinemia -r/t infection ACute thombocytopenia -r/t infection BPH -as above -continue Flomax ljg-bddeyhv-guzakbxlm type 2 diabetes -POC glucose, diabetic diet -Humalog on sliding scale -hold metformin hypertension -blood pressures initially soft but normotensive on admission -hold lisinopril and hydrochlorothiazide, nasids in setting of ALESSANDRA -resume hydralazine and metoprolol a.m. -follow blood pressures hyperlipidemia-statin GERD -PPI DVT prophylaxis-Lovenox Full code Patient requires inpatient stay for management of acute prostatitis with severe sepsis and ALESSANDRA with urinary retention requiring IV antibiotics, IV fluid resuscitation, expert consultation, and close monitoring of renal function, electrolyte levels and fluid status. Quality Stroke Does the patient have a stroke diagnosis?: No VTE Prior VTE?: No VTE Risk Level:: Medical - moderate - high VTE Device Contraindication: Treatment Not Indicated VTE Drug Contraindication: N/A - Med Ordered
[2023-09-14] MEDS: 0.9 % Sodium Chloride Flush 3 ML SYRINGE IVFLUSH ×2 (16:03→23:56)
--- NOTE | 2023-09-14 16:12 | P.CNID_ITS ---
History of Present Illness Data of Consult Service Date: 09/14/23 Requesting physician: Cali Resendez Primary Care Provider: Arsh Torres MD [facility] Reason for consult: E coli UTI/probable prostatitis He presents with urinary retention and lower pelvic pain. He has about five days of dysuria. He has blood cultures negative and urine E coli sensitive to Ceftriaxone He has hypertension and diabetes. Review of Systems 2 Review of Systems: Yes all other systems are reviewed and are negative PMFSH Past Medical History Medical History Prostatitis Hyperlipidemia BPH (benign prostatic hyperplasia) Diabetes 1.5, managed as type 2 HTN (hypertension) Family History Family history: reviewed and not pertinent Surgical History Surgical History History of knee surgery Social History Social History Household Members: Spouse, Family and Children Housing: Apartment Do you presently have visiting nurse or other home services: No Patient Tobacco Use Status: Never used Tobacco e-Cigarette/Vaping Use: Never Used service: No Meds Allergies Allergy/AdvReac Type Severity Reaction Status Date / Time nut - unspecified [NUTS] Allergy Intermediate ITCHY Verified 09/12/23 10:00 THROAT nitroglycerin [NITROGLYCERIN] AdvReac Unknown HEADACHES Verified 09/12/23 10:00 BREAD Allergy Mild RUNNY NOSE Uncoded 09/12/23 09:57 Lopid Allergy Unknown Unknown Uncoded 09/12/23 09:57 nsaids Allergy Unknown Unknown Uncoded 09/12/23 09:57 Percocet Allergy Unknown Unknown Uncoded 09/12/23 09:57 Active Medications: Current Medications Acetaminophen (Acetaminophen 325 Mg Tablet) 650 mg PO Q6H PRN PRN Reason: Pain, Mild (Pain Scale 1-3) Last Admin: 09/13/23 07:04 Dose: 650 mg Amlodipine Besylate (Amlodipine Besylate 5 Mg Tablet) 5 mg PO DAILY [facility]; Protocol Last Admin: 09/14/23 08:24 Dose: 5 mg Fluticasone Propionate (Fluticasone Propionate Nasal 16 Gm [place]) 1 spray NOSTRIL-B DAILY PRN PRN Reason: Congestion Glucose (Glucose Gel 15 Gm Gel..Gram.) 15 gm PO Q15M PRN; Protocol PRN Reason: per Hypoglycemia Standing Ord. Hydralazine HCl (Hydralazine Hcl 25 Mg Tablet) 75 mg PO TID [facility]; Protocol Last Admin: 09/14/23 16:00 Dose: 75 mg Cefepime HCl 2 gm/ Sodium (Chloride) 50 mls @ 100 mls/hr IV Q12H [facility] Last Infusion: 09/14/23 12:41 Dose: Infused Dextrose (D10) 250 mls @ 750 mls/hr IV Q15M PRN; Protocol PRN Reason: per Hypoglycemia Standing Ord. Insulin Human Lispro (Insulin Lispro 100 Unit/Ml 3 Ml Vial) 0 unit SUBCUT QIDACHS [facility]; Protocol Last Admin: 09/14/23 12:07 Dose: 2 unit Metoprolol Succinate (Metoprolol Succinate Er 25 Mg Tab.Er.24h) 25 mg PO DAILY [facility]; Protocol Last Admin: 09/14/23 08:24 Dose: 25 mg Omeprazole (Omeprazole 20 Mg Capsule.Dr) 20 mg PO BID@0630,1630 [facility] Last Admin: 09/14/23 16:01 Dose: 20 mg Ondansetron HCl (Ondansetron Hcl 4 Mg/2 Ml Vial) 4 mg IVPUSH Q8H PRN PRN Reason: Nausea and Vomiting Last Admin: 09/13/23 18:32 Dose: 4 mg Oxycodone HCl (Oxycodone Hcl Immed Release 5 Mg Tablet) 5 mg PO Q6H PRN PRN Reason: Pain, Severe (Pain Scale 7-10) Last Admin: 09/14/23 05:58 Dose: 5 mg Senna (Sennosides 8.6 Mg Tablet) 17.2 mg PO BEDTIME PRN PRN Reason: Constipation Sodium Chloride (0.9 % Sodium Chloride Flush 3 Ml Syringe) 3 ml IVFLUSH QSHIFT [facility] Last Admin: 09/14/23 16:03 Dose: 3 ml Tamsulosin HCl (Tamsulosin Hcl 0.4 Mg Capsule) 0.8 mg PO BEDTIME [facility] Last Admin: 09/13/23 20:33 Dose: 0.8 mg Home Medications ?Medication ?Instructions ?Recorded ?Confirmed ?Last Taken ?Type amlodipine 5 mg tablet 5 mg PO DAILY 09/16/21 09/12/23 Unknown History lisinopril 40 mg tablet 40 mg PO DAILY 09/16/21 09/12/23 Unknown History meloxicam 15 mg tablet 15 mg PO DAILY 09/16/21 09/12/23 Unknown History metformin 500 mg tablet,extended 500 mg PO DAILY@1800 09/16/21 09/12/23 Unknown History release 24 hr metoprolol succinate 25 mg 25 mg PO DAILY 09/16/21 09/12/23 Unknown History tablet,extended release 24 hr omeprazole 20 mg capsule,delayed 20 mg PO BID 09/16/21 09/12/23 Unknown History release tamsulosin 0.4 mg capsule 0.4 mg PO DAILY 09/16/21 09/12/23 Unknown History fluticasone propionate 50 1 spray intranasal DAILY PRN 09/12/23 09/12/23 Unknown History mcg/actuation nasal Congestion spray,suspension hydralazine 50 mg tablet 75 mg PO TID 09/12/23 09/12/23 Unknown History hydrochlorothiazide 12.5 mg tablet 12.5 mg PO DAILY 09/12/23 09/12/23 Unknown History Physical Exam 2 Vital Signs: Vital Signs: Last Vital Signs Temp 98.7 F 09/14/23 11:11 Pulse 81 09/14/23 11:11 Resp 18 09/14/23 11:11 BP 122/77 09/14/23 11:11 Pulse Ox 98 09/14/23 11:11 O2 Del Method Room Air 09/14/23 11:11 BMI result Body Mass Index 25.0 Const: General: cooperative HEENT: Head: Yes normal to inspection Face and sinus: Yes normal facial exam Mouth: Normal oral and palatal mucosa present Teeth and gingiva: d entition normal Eyes: General: appearance normal, both eyes and all related structures P upils: Equal, round and reactive pupils present Resp: Effort & Inspection: normal respiratory effort Cardio: Rate: regular rate Rhythm: regular rhythm GI: Palpation (GI): Soft to palpation and nontender : General: Yes no CVA tenderness Back/Spine/Pelvis: Back: no CVA tenderness Skin: General skin exam: no rashes or lesions noted Neuro: General: moves all extremities Cranial nerves: Yes Equal, round and reactive pupils present Extrem: General: Yes normal to inspection Psych: Appearance: grossly normal Results Labs 09/14/23 08:16 09/14/23 08:16 Labs: Short CBC 09/14/23 Range/Units 08:16 WBC 15.2 H (4.8-10.8) X10*3/uL Hgb 13.4 L (14.0-18.0) g/dl Hct 37.7 L (42.0-52.0) % Plt Count 125 L D (160-400) X10*3/uL BMP 09/14/23 08:16 Sodium 136 Potassium 3.9 Chloride 107 Carbon Dioxide 20 L BUN 18 H Creatinine 1.17 Calcium 8.5 Microbiology Microbiology Results: Microbiology 09/12/23 12:32 Blood - Venous Blood Culture - Preliminary No growth after 48 hours. 09/12/23 11:36 Blood - Venous Blood Culture - Preliminary No growth after 48 hours. 09/12/23 Unknown Urine clean catch - Urine beebe top Urine Culture - Final Escherichia coli Assessment and Plan (1) Severe sepsis: Status: Acute He has probable prostatis. He has E coli likely He says he received MELVA here and had some discomfort. (2) Acute prostatitis: Status: Acute Plan Would continue Ceftriaxone [place] less [place] [address] would switch to po Ceftin 500 mg bid total 21 days all antibiotics. See Urology followup.
[2023-09-14 16:13] LABS: Glucose, Whole Blood 168 mg/dL (60-115)
--- NOTE | 2023-09-14 17:35 | P.CNUR_ITS ---
History of Present Illness Consult details Consult date: 09/14/23 Narrative: 63-year-old male with history of hypertension and diabetes presented to ED with c/o's 2 days of dysuria and right-sided abdominal pain. The patient states he is followed by urology for bph. He currently has orona due to urinary retention. CTAP- 09/12/23- prostate enlarged with calcifications Renal US 09/12- kidneys no hydro, no renal calcificaitions Review of Systems 2 Review of Systems: Yes all other systems are reviewed and are negative Constitutional: Constitutional: Reports no additional constitutional complaints Eyes: Eyes: Reports no additional eye complaints ENT: Reports system reviewed and no additional complaints, except as documented Cardiovascular: Cardiovascular: Reports no additional cardiovascular complaints Respiratory: Respiratory: Reports no additional respiratory complaints Gastrointestinal: Gastrointestinal: Reports no additional gastrointestinal complaints Genitourinary: Genitourinary: Reports as per HPI Musculoskeletal: Musculoskeletal: Reports no additional musculoskeletal complaints Integumentary/Breasts: Skin/Breast: Reports system reviewed and no additional complaints, except as docu Neurologic: Reports system reviewed and no additional complaints, except as documented Psychiatric: Psychiatric: Reports no additional psychiatric complaints Endocrine: Endocrine: Reports no additional endocrine complaints Hematologic/Lymphatic: Hematologic/Lymphatic: Reports no additional hematologic/lymphatic complaints Allergic/Immunologic: Allergic/Immunologic: Reports no additional allergic/immunologic complaints PMF Past Medical History Medical History Prostatitis Hyperlipidemia BPH (benign prostatic hyperplasia) Diabetes 1.5, managed as type 2 HTN (hypertension) Family History Family history: reviewed and not pertinent Surgical History Surgical History History of knee surgery Social History Social History Household Members: Spouse, Family and Children Housing: Apartment Do you presently have visiting nurse or other home services: No Patient Tobacco Use Status: Never used Tobacco e-Cigarette/Vaping Use: Never Used service: No Meds Allergies Allergy/AdvReac Type Severity Reaction Status Date / Time nut - unspecified [NUTS] Allergy Intermediate ITCHY Verified 09/12/23 10:00 THROAT nitroglycerin [NITROGLYCERIN] AdvReac Unknown HEADACHES Verified 09/12/23 10:00 BREAD Allergy Mild RUNNY NOSE Uncoded 09/12/23 09:57 Lopid Allergy Unknown Unknown Uncoded 09/12/23 09:57 nsaids Allergy Unknown Unknown Uncoded 09/12/23 09:57 Percocet Allergy Unknown Unknown Uncoded 09/12/23 09:57 Active Medications: Current Medications Acetaminophen (Acetaminophen 325 Mg Tablet) 650 mg PO Q6H PRN PRN Reason: Pain, Mild (Pain Scale 1-3) Last Admin: 09/13/23 07:04 Dose: 650 mg Amlodipine Besylate (Amlodipine Besylate 5 Mg Tablet) 5 mg PO DAILY [facility]; Protocol Last Admin: 09/14/23 08:24 Dose: 5 mg Fluticasone Propionate (Fluticasone Propionate Nasal 16 Gm [place]) 1 spray NOSTRIL-B DAILY PRN PRN Reason: Congestion Glucose (Glucose Gel 15 Gm Gel..Gram.) 15 gm PO Q15M PRN; Protocol PRN Reason: per Hypoglycemia Standing Ord. Guaifenesin (Guaifenesin 200 Mg/10 Ml 10 Ml Liquid) 10 ml PO Q4H PRN PRN Reason: Cough Hydralazine HCl (Hydralazine Hcl 25 Mg Tablet) 75 mg PO TID [facility]; Protocol Last Admin: 09/14/23 16:00 Dose: 75 mg Cefepime HCl 2 gm/ Sodium (Chloride) 50 mls @ 100 mls/hr IV Q12H [facility] Last Infusion: 09/14/23 12:41 Dose: Infused Dextrose (D10) 250 mls @ 750 mls/hr IV Q15M PRN; Protocol PRN Reason: per Hypoglycemia Standing Ord. Insulin Human Lispro (Insulin Lispro 100 Unit/Ml 3 Ml Vial) 0 unit SUBCUT QIDACHS [facility]; Protocol Last Admin: 09/14/23 16:34 Dose: 2 unit Metoprolol Succinate (Metoprolol Succinate Er 25 Mg Tab.Er.24h) 25 mg PO DAILY [facility]; Protocol Last Admin: 09/14/23 08:24 Dose: 25 mg Omeprazole (Omeprazole 20 Mg Capsule.Dr) 20 mg PO BID@0630,1630 [facility] Last Admin: 09/14/23 16:01 Dose: 20 mg Ondansetron HCl (Ondansetron Hcl 4 Mg/2 Ml Vial) 4 mg IVPUSH Q8H PRN PRN Reason: Nausea and Vomiting Last Admin: 09/13/23 18:32 Dose: 4 mg Oxycodone HCl (Oxycodone Hcl Immed Release 5 Mg Tablet) 5 mg PO Q6H PRN PRN Reason: Pain, Severe (Pain Scale 7-10) Last Admin: 09/14/23 16:33 Dose: 5 mg Senna (Sennosides 8.6 Mg Tablet) 17.2 mg PO BEDTIME PRN PRN Reason: Constipation Sodium Chloride (0.9 % Sodium Chloride Flush 3 Ml Syringe) 3 ml IVFLUSH QSHIFT [facility] Last Admin: 09/14/23 16:03 Dose: 3 ml Tamsulosin HCl (Tamsulosin Hcl 0.4 Mg Capsule) 0.8 mg PO BEDTIME [facility] Last Admin: 09/13/23 20:33 Dose: 0.8 mg Home Medications ?Medication ?Instructions ?Recorded ?Confirmed ?Last Taken ?Type amlodipine 5 mg tablet 5 mg PO DAILY 09/16/21 09/12/23 Unknown History lisinopril 40 mg tablet 40 mg PO DAILY 09/16/21 09/12/23 Unknown History metformin 500 mg tablet,extended 500 mg PO DAILY@1800 09/16/21 09/12/23 Unknown History release 24 hr metoprolol succinate 25 mg 25 mg PO DAILY 09/16/21 09/12/23 Unknown History tablet,extended release 24 hr omeprazole 20 mg capsule,delayed 20 mg PO BID 09/16/21 09/12/23 Unknown History release fluticasone propionate 50 1 spray intranasal DAILY PRN 09/12/23 09/12/23 Unknown History mcg/actuation nasal Congestion spray,suspension hydralazine 50 mg tablet 75 mg PO TID 09/12/23 09/12/23 Unknown History hydrochlorothiazide 12.5 mg tablet 12.5 mg PO DAILY 09/12/23 09/12/23 Unknown History Physical Exam 2 Vital Signs: Vital Signs: Last Vital Signs Temp 99.3 F 09/14/23 16:33 Pulse 84 09/14/23 16:00 Resp 18 09/14/23 16:00 BP 136/77 09/14/23 16:00 Pulse Ox 96 09/14/23 16:00 O2 Del Method Room Air 09/14/23 16:00 BMI result Body Mass Index 25.0 Const: General: healthy appearing, no acute distress and well developed O rientation/consciousness: patient oriented x3 HEENT: Head: Yes normocephalic and Yes atraumatic Eyes: Conjunctivae: conjunctivae normal Neck: Neck: Yes normal visual inspection Chest: Chest palpation & inspection: normal inspection of the chest Resp: Effort & Inspection: normal respiratory effort Cardio: Rate: regular rate GI: Inspection: Yes normal to inspection Palpation (GI): Soft to palpation : Other: orona in placed Penis: normal penis and uncircumcised Scrotum: scrotum normal Neuro: General: patient oriented x3 Extrem: General: No pedal edema Psych: Appearance: grossly normal Affect: normal affect Results Labs 09/15/23 12:40 09/14/23 08:16 Labs: Abnormal lab results 09/13/23 09/14/23 09/14/23 Range/Units 20:45 07:20 08:16 WBC 15.2 H (4.8-10.8) X10*3/uL RBC 4.38 L (4.60-5.80) X10*6/uL Hgb 13.4 L (14.0-18.0) g/dl Hct 37.7 L (42.0-52.0) % Plt Count 125 L D (160-400) X10*3/uL Carbon Dioxide 20 L (22-29) mmol/L BUN 18 H (9-16) mg/dL POC Glucose 163 H 137 H (60-115) mg/dL Random Glucose 156 H (60-115) mg/dL 09/14/23 09/14/23 Range/Units 11:12 16:10 WBC (4.8-10.8) X10*3/uL RBC (4.60-5.80) X10*6/uL Hgb (14.0-18.0) g/dl Hct (42.0-52.0) % Plt Count (160-400) X10*3/uL Carbon Dioxide (22-29) mmol/L BUN (9-16) mg/dL POC Glucose 171 H 168 H (60-115) mg/dL Random Glucose (60-115) mg/dL Short CBC 09/14/23 Range/Units 08:16 WBC 15.2 H (4.8-10.8) X10*3/uL Hgb 13.4 L (14.0-18.0) g/dl Hct 37.7 L (42.0-52.0) % Plt Count 125 L D (160-400) X10*3/uL BMP 09/14/23 08:16 Sodium 136 Potassium 3.9 Chloride 107 Carbon Dioxide 20 L BUN 18 H Creatinine 1.17 Calcium 8.5 Urine 09/12/23 Range/Units 13:03 Urine Color Dark Yellow Urine Appearance Turbid Urine pH 7.5 (5.0-9.0) Ur Specific [place] >= 1.030 H (1.005-1.025) Urine Protein >=1000 (4+) H (Neg-Trace) mg/dL Urine Glucose (UA) Negative (Negative) mg/dL All other labs normal. Imaging Additional studies: Date of Service: 09/13/23 US RETROPERITONEAL LIMITED (RENAL ONLY) CLINICAL INFORMATION: ALESSANDRA/proteinuria. COMPARISON: CT abdomen and pelvis 09/12/2023. Ultrasound abdomen complete 06/02/2016. TECHNIQUE: Real-time imaging of the kidneys. FINDINGS: RIGHT KIDNEY: 9.9 x 4.6 x 6.1 cm (SAG x AP x TRV). The kidney is normal in size, contour, and echogenicity. Renal cortical thickness is normal. No renal calculi or hydronephrosis. 9 mm cortical simple cyst in the mid kidney. No follow-up imaging is recommended. LEFT KIDNEY: 9.1 x 5.0 x 5.2 cm (SAG x AP x TRV). The kidney is normal in size, contour, and echogenicity. Renal cortical thickness is normal. No renal calculi or hydronephrosis. 7 mm cortical simple cyst in the lower kidney. No follow-up imaging is recommended. IMPRESSION: No nephrolithiasis or hydronephrosis. Date of Service: 09/12/23 EXAMINATION: CT ABDOMEN AND PELVIS WITH CONTRAST CLINICAL INFORMATION: Right flank pain. COMPARISON: CT abdomen pelvis dated 08/05/2018. TECHNIQUE: Multidetector volumetric images were obtained from the superior aspect of the liver through the pubic symphysis following administration 85 mL of Omnipaque 350 intravenous contrast. Sagittal and coronal reformatted images were obtained on the technologist's workstation. Oral contrast: No This CT examination was performed using dose optimization techniques as appropriate, variously including the following: *Automated exposure control *Adjustment of mA and/or kV according to patient size (this includes techniques or standardized protocols for targeted exams where dose is matched to indication/reason for exam; i.e. extremities or head) *Use of iterative reconstruction technique DLP: 431 mGy-cm FINDINGS: LUNG BASES: There are mild dependent changes at the lung bases. No pleural effusion. Heart size is normal. No pericardial effusion. LIVER, GALLBLADDER, AND BILIARY TREE: The liver is normal in size, shape, and attenuation. No focal hepatic lesion or biliary ductal dilatation is present. The gallbladder is unremarkable with no evidence of radiopaque gallstones, gallbladder wall thickening, or obvious pericholecystic inflammatory changes. PANCREAS: Unremarkable. SPLEEN: Unremarkable. ADRENAL GLANDS: Unremarkable. KIDNEYS AND URETERS: The kidneys are normal in size, shape, and attenuation. No hydronephrosis, hydroureter, or calculi seen. The previously identified 1.7 mm right renal calculus is no longer seen. No perinephric stranding. There are a few subcentimeter right renal cysts. There is at least one left subcentimeter left renal cyst. BLADDER: Unremarkable. GASTROINTESTINAL TRACT: There is a small hiatal hernia. The small bowel and colon are normal in caliber. There is no pericolonic inflammatory stranding. There is no colonic wall thickening. The appendix is not definitively identified, however, there are no inflammatory changes within the right lower quadrant to indicate acute appendicitis. There is no free fluid within the abdomen or pelvis. ABDOMINAL WALL: No significant hernia is appreciated. LYMPH NODES: No lymphadenopathy. VASCULAR: No abdominal aortic aneurysm. PELVIC VISCERA: The prostate gland is markedly enlarged measuring 6.3 x 7.2 cm. OSSEOUS STRUCTURES: There are surgical changes at L4-L5 and L5-S1. There are intervertebral disc spacers at these levels. IMPRESSION: No acute intra-abdominal/intrapelvic abnormality. The previously identified 1.7 mm right renal calculus is no longer seen. The prostate gland is markedly enlarged measuring 6.3 x 7.2 cm. It is heterogeneous in attenuation and contains multiple calcifications. Assessment and Plan (1) ALESSANDRA (acute kidney injury): Status: Acute (2) Urinary retention: Status: Acute (3) Acute prostatitis: Status: Acute (4) Severe sepsis: Status: Acute Plan discharge with orona pt on flomax 0.8 mg daily Recommend start proscar 5 mg daily Procedures Date of Service Date of Service: 09/15/23
[2023-09-14] MEDS: guaiFENesin 200 MG/10 ML 10 ML LIQUID PO (18:10)
--- NOTE | 2023-09-14 20:03 | P.PNNP_ITS ---
Subjective Subjective Date of Service: 09/14/23 Interval history: Events noted. All recent data reviewed. Physical Exam 2 Vital Signs: Vital Signs: Last Vital Signs Temp 99.3 F 09/14/23 16:33 Pulse 84 09/14/23 16:00 Resp 18 09/14/23 16:00 BP 136/77 09/14/23 16:00 Pulse Ox 96 09/14/23 16:00 O2 Del Method Room Air 09/14/23 16:00 BMI result Body Mass Index 25.0 Const: General: comfortable and no acute distress O rientation/consciousness: patient oriented x3 HEENT: Head: Yes normocephalic Mouth: Normal oral and palatal mucosa present Eyes: EOM: EOMs intact bilaterally Neck: Neck: Yes supple Resp: Auscultation: clear to auscultation bilaterally Cardio: Jugular venous distension: no JVD Rate: regular rate GI: Palpation (GI): Soft to palpation Auscultation: normal bowel sounds : General: Yes no CVA tenderness Back/Spine/Pelvis: Back: no CVA tenderness Skin: General skin exam: no rashes or lesions noted Neuro: General: patient oriented x3 and moves all extremities Extrem: General: Yes no pedal edema Objective Data Labs 09/14/23 08:16 09/14/23 08:16 Labs: Laboratory Results - last 24 hr 09/13/23 09/14/23 09/14/23 20:45 07:20 08:16 WBC 15.2 H RBC 4.38 L Hgb 13.4 L Hct 37.7 L MCV 86.1 MCH 30.6 MCHC 35.5 RDW 13.4 Plt Count 125 L D MPV 10.7 Absolute Nucleated RBC 0.000 Nucleated RBC % (auto) 0.0 Sodium 136 Potassium 3.9 Chloride 107 Carbon Dioxide 20 L Anion Gap 13 BUN 18 H Creatinine 1.17 Estim Creat Clear Calc 56.2 Estimated GFR > 60 POC Glucose 163 H 137 H Random Glucose 156 H Calcium 8.5 09/14/23 09/14/23 11:12 16:10 WBC RBC Hgb Hct MCV MCH MCHC RDW Plt Count MPV Absolute Nucleated RBC Nucleated RBC % (auto) Sodium Potassium Chloride Carbon Dioxide Anion Gap BUN Creatinine Estim Creat Clear Calc Estimated GFR POC Glucose 171 H 168 H Random Glucose Calcium Microbiology Microbiology Results: Microbiology 09/12/23 12:32 Blood - Venous Blood Culture - Preliminary No growth after 48 hours. 09/12/23 11:36 Blood - Venous Blood Culture - Preliminary No growth after 48 hours. 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 Renal functions better Continue to hold lisinopril, hydrochlorothiazide, meloxicam Will need close follow up with [facility] after D/C Progress Note: Quality Stroke Does the patient have a stroke diagnosis?: No
[2023-09-14 20:06] LABS: Glucose, Whole Blood 165 mg/dL (60-115)
[2023-09-14] MEDS: Tamsulosin HCL 0.4 MG CAPSULE 0.8 MG PO (20:50)
[2023-09-15] MEDS: cefEPime HCl 2 GM in 0.9 % Sodium Chloride 50 ML IV ×2 (00:03→12:42)
[2023-09-15] MEDS: oxyCODONE HCl Immed Release 5 MG TABLET PO ×2 (00:03→08:13)
[2023-09-15 03:36] VITALS: BP 119/75; PULSE 76; RESP 20; TEMP 36.7; O2SAT 96
[2023-09-15] MEDS: Omeprazole 20 MG CAPSULE.DR PO (05:34)
[2023-09-15 07:31] VITALS: BP 129/79; PULSE 73; RESP 18; TEMP 36.3; O2SAT 97
[2023-09-15 07:41] LABS: Glucose, Whole Blood 133 mg/dL (60-115)
[2023-09-15] MEDS: Metoprolol Succinate ER 25 MG TAB.ER.24H PO (08:10)
[2023-09-15] MEDS: hydrALAZINE HCl 25 MG TABLET 75 MG PO (08:10)
[2023-09-15] MEDS: amLODIPine Besylate 5 MG TABLET PO (08:10)
[2023-09-15] MEDS: 0.9 % Sodium Chloride Flush 3 ML SYRINGE IVFLUSH (08:17)
[2023-09-15 11:06] VITALS: BP 103/59; PULSE 71; RESP 18; TEMP 37.1; O2SAT 96
[2023-09-15] MEDS: Finasteride 5 MG TABLET PO (11:09)
[2023-09-15 11:12] LABS: Glucose, Whole Blood 148 mg/dL (60-115)
--- NOTE | 2023-09-15 12:04 | MHC.CM.PN ---
Patient has been medically cleared for dc to home today, with services (new orona cath at home). A referral was made to [facility], who has been made aware of today's dc.
--- NOTE | 2023-09-15 12:13 | PM.DS ---
DS: Providers Provider Date of Service: 09/15/23 Date of admission: 09/12/23 19:46 Date of discharge: 09/15/23 Primary care physician: Arsh Torres MD Consults: 09/12/23 19:50 Consult to Urology Routine Consulting Provider: Bolivar Chacon Reason for consultation: Prostatitis, urinary retention 09/13/23 09:28 Consult to Nephrology Routine Consulting Provider: [facility] Reason for consultation: Alessandra and proteinuria Has provider been notified: No 09/14/23 08:39 Consult to Infectious Diseases Routine Consulting Provider: [facility] Reason for consultation: severe sepsis ,prostatitis Has provider been notified: No Attending physician on discharge: Cali Resendez Discharging clinician: Cali Resendez DS: Diagnosis Discharge Diagnosis (1) ALESSANDRA (acute kidney injury): Status: Acute (2) HTN (hypertension): Status: Acute DS: Summary Hospital Course Hospital Course: 63-year-old male with history of hypertension, [id number] type 2 diabetes, hyperlipidemia, and BPH following with [facility] urology presented to the ED earlier today for evaluation of right lower quadrant and flank/low back pain as well as nausea, vomiting, subjective fevers and chills ongoing for several days. He states he has been unable to tolerate much p.o.. He denies any rectal pain. No melena, hematochezia, diarrhea, cough, shortness of breath, lightheadedness, chest pain. He denies any dysuria, hematuria, urgency but does state he has had weak urinary stream with decreased urinary output. On arrival, febrile to 102.2, tachycardic to 121 with soft blood pressures of 96/69 improved to 136/83 on admission following IV fluid bolus. On admission, has a leukocytosis of 19.0 with 19% bandemia and platelets 108. Initial creatinine 1.52, baseline 1.20 with repeat creatinine 1.34 following IV fluids. BUN 19. Electrolyte levels normal. Initial lactic acid 2.2, repeat 2.3, repeat 2.6, likely multifactorial in setting of severe sepsis and metformin use. Total bilirubin 1.6, transaminases within normal limits. CT abdomen/pelvis negative for acute intra abdominal/intrapelvic abnormality and previously visualized 1.7 mm right renal calculi no longer seen. Prostate gland markedly enlarged measuring 6.3 x 7.2 cm that is heterogenous in attenuation and contains multiple urinalysis with moderate leukocytes, negative nitrites, trace blood, significant 4+ protein, elevated specific gravity, positive urinary sediment, 4+ bacteria. In the ED, started on IV cefepime for suspected prostatitis with severe sepsis. Has received 2 L IV NS, ketorolac x2, ondansetron. Hospital course: Patient was admitted to the hospital because of acute prostatitis with severe sepsis: Found to have leukocytosis, tachycardia, fever, CT abdomen showed enlarged prostate, UA showed pyuria/bacteriuria and proteinuria, also found to have ALESSANDRA, acute lactic acidosis: Patient was initiated with IV hydration, IV antibiotics cefepime, blood cultures sent: Patient 's acute lactic acidosis and ALESSANDRA seems to be improved with hydration, blood culture negative, fever resolved, [place] [id number] [place] [id number], urine culture grew E coli sensitive to ceftriaxone, blood culture negative. Seen by infectious disease recommended to give Ceftin 500 mg p.o. b.i.d. for 21 days. Nephrology saw the patient for ALESSANDRA and proteinuria: Renal ultrasound seems fine, ALESSANDRA improved with hydration, Nephro recommended to hold lisinopril, hydrochlorothiazide, meloxicam initially . Hold BP medications as blood pressure is currently stable mostly in 120-130 range without medications. Follow-up BMP out patiently and consider further use outpatient with PCP/nephrology. For BPH: Seen by Urology recommended to continue [place], added finasteride, adjusted Flomax to 0.8 mg daily. Patient is to follow up Urology outpatient. plan: complete Ceftin 500 mg p.o. b.i.d. for 21 days. Monitor BMP, hold lisinopril, meloxicam until seen by nephrology outpatient. Further use of these medication as per Nephrology outpatient. for Htn:blood pressure is currently stable mostly in 120-130 range without medications hold lisinopril and meloxicam until repeat bmp and seen by nephrology. can start hctz if needed for blood pressure- after repeating bmp outpatient as per pcp. BPH: continue Oron[place], added finasteride, adjusted Flomax to 0.8 mg daiy-Patient is to follow up Urology outpatient. Above management discussed with the patient in detail length she understand and in agreement with the above plan, time spent 40 minutes and 50% time spent on counseling. Time Attestation Total time managing care of this patient today: 40 mintues. Discharge Coordination Time (in mins): 40 min Quality: Safe Use of Opioids Does Pt have an Active Cancer Diagnosis on the Problem List?: No Quality: Stroke Does the patient have a stroke diagnosis?: No Physical Exam Vital Signs: Vital Signs: Last Vital Signs Temp 98.7 F 09/15/23 11:06 Pulse 71 09/15/23 11:06 Resp 18 09/15/23 11:06 BP 103/59 L 09/15/23 11:06 Pulse Ox 96 09/15/23 11:06 O2 Del Method Room Air 09/15/23 11:06 BMI result Body Mass Index 25.0 Appearance: Alert.? Oriented X3.? cvs: rrr, [id number] , no murmur res: clear to auscultation ,no rhonchii or wheezing abd: no rebound or guarding ,nt, bs present. has orona. ext pulses present , no cyanosis . neuro: axo3 , nonfocal. DS: Data Data Completed and Pending Labs on day of discharge: Laboratory Results - last 24 hr 09/14/23 09/14/23 09/15/23 16:10 19:50 07:32 POC Glucose 168 H 165 H 133 H 09/15/23 11:09 POC Glucose 148 H Preliminary micro results at discharge 09/12/23 12:32 Blood Culture - Preliminary Blood - Venous No growth after 48 hours. 09/12/23 11:36 Blood Culture - Preliminary Blood - Venous No growth after 48 hours. Imaging Chest x-ray: Radiologist's impression: ITS Impressions Abdomen/Pelvis CT 09/12/23 14:10 IMPRESSION: No acute intra-abdominal/intrapelvic abnormality. The previously identified 1.7 mm right renal calculus is no longer seen. The prostate gland is markedly enlarged measuring 6.3 x 7.2 cm. It is heterogeneous in attenuation and contains multiple calcifications. Fleischner guidelines were followed. Renal Ultrasound 09/13/23 09:53 IMPRESSION: No nephrolithiasis or hydronephrosis. Chest X-Ray 09/14/23 17:13 IMPRESSION: Unremarkable examination. Discharge Plan Discharge Anticipated Discharge Date/Time: 09/15/23 11:56 Patient Disposition: Home Health Service Discharge Diagnosis: acute prostaitis ,uti Referrals: [facility] [Outside] - 1 Week Arsh Torres MD [Primary Care Provider] - 1 Week Discharge Medications: New finasteride 5 mg Tablet 5 mg PO DAILY Qty: 30 0RF cefuroxime axetil 500 mg tablet 500 mg PO BID Qty: 40 0RF sennosides [Senna Lax] 8.6 mg Tablet 17.2 mg PO BEDTIME PRN (Reason: Constipation) Qty: 30 0RF guaifenesin 100 mg/5 mL Liquid 100 mg PO Q4H PRN (Reason: Cough) Qty: 200 0RF Continued hydralazine 50 mg tablet 75 mg PO TID fluticasone propionate 50 mcg/actuation Ambrose,Suspension 1 spray INTRANASAL DAILY PRN (Reason: Congestion) Rx Instructions: administer into each nostril amlodipine 5 mg tablet 5 mg PO DAILY omeprazole 20 mg capsule,delayed release(DR/EC) 20 mg PO BID metoprolol succinate 25 mg tablet extended release 24 hr 25 mg PO DAILY metformin 500 mg tablet extended release 24 hr 500 mg PO DAILY@1800 Changed tamsulosin 0.4 mg capsule 0.8 mg PO DAILY Qty: 120 0RF Held hydrochlorothiazide 12.5 mg Tablet 12.5 mg PO DAILY Hold Instructions: Resume on 09/22/23. lisinopril 40 mg tablet 40 mg PO DAILY Hold Instructions: Resume on 10/17/23. Discontinued meloxicam 15 mg tablet 15 mg PO DAILY Discharge Orders: Discharge Order (Routine); Ordered 09/15/23 Ordered By: Cali Resendez Diet: Advance to usual diet Activity on Discharge: As tolerated Stand Alone Forms: Patient Portal Discharge page Print Language: Argentine Other Ambulatory Orders: Basic Metabolic Panel (Routine) Timeframe: 1 Week Facility: [facility] - Location: Laboratory Ordered By: Cali Resendez Complete Blood Count no Diff (Routine) Timeframe: 1 Week Facility: [facility] - Location: Laboratory Ordered By: Cali Resendez Care Plan Goals: Please complete Ceftin 500 mg p.o. b.i.d. for 21 days Added finasteride 5 mg daily, adjusted tamsulosin to 0.8 mg daily, patient will go home with Oron[place]. hold lisinopril and meloxicam until repeat bmp and seen by nephrology. can start hctz if needed for blood pressure- after repeating bmp outpatient Health Concerns: As above. Plan of Treatment: As above. Assessment: As above.
[2023-09-15] MEDS: cefuroxime axetiL 500 MG TABLET PO (12:42)
[2023-09-15 12:48] LABS: Hematocrit 36.8 % (42.0-52.0); Hemoglobin 13.1 g/dl (14.0-18.0); Mean Corpuscular HGB Conc 35.6 g/dl (31.0-36.0); Mean Corpuscular Volume 84.2 fL (80.0-98.0); Mean Platelet Volume 10.1 fL (9.4-12.4); Platelet Count 144 X10*3/uL (160-400); Red Blood Count 4.37 X10*6/uL (4.60-5.80); Red Cell Distribution Width 13.6 % (11.0-16.0); White Blood Count 9.6 X10*3/uL (4.8-10.8)
--- NOTE | 2023-09-15 13:14 | P.PNNP_ITS ---
Subjective Subjective Date of Service: 09/21/23 Interval history: Events noted. All recent data reviewed. feels better Physical Exam 2 Vital Signs: Vital Signs: Last Vital Signs Temp 98.7 F 09/15/23 11:06 Pulse 71 09/15/23 11:06 Resp 18 09/15/23 11:06 BP 103/59 L 09/15/23 11:06 Pulse Ox 96 09/15/23 11:06 O2 Del Method Room Air 09/15/23 11:06 BMI result Body Mass Index 25.0 Const: General: comfortable Nutritional Appearance: well nourished O rientation/consciousness: patient oriented x3 HEENT: Head: No normal to inspection Mouth: moist mucous membranes Neck: Neck: Yes supple and Yes no JVD Resp: Auscultation: clear to auscultation bilaterally, no rales and rub present Cardio: Jugular venous distension: no JVD Palpation: no palpable S3 and no palpable S4 Heart sounds: no rubs GI: Palpation (GI): Soft to palpation and nontender Percussion: No Fluid wave present : General: Yes no CVA tenderness Back/Spine/Pelvis: Back: no CVA tenderness Skin: General skin exam: no rashes or lesions noted Neuro: General: patient oriented x3 Extrem: General: Yes no pedal edema and No clubbing Objective Data Labs 09/15/23 12:40 09/14/23 08:16 Labs: Laboratory Results - last 24 hr 09/14/23 09/14/23 09/15/23 16:10 19:50 07:32 WBC RBC Hgb Hct MCV MCH MCHC RDW Plt Count MPV Absolute Nucleated RBC Nucleated RBC % (auto) POC Glucose 168 H 165 H 133 H 09/15/23 09/15/23 11:09 12:40 WBC 9.6 RBC 4.37 L Hgb 13.1 L Hct 36.8 L MCV 84.2 MCH 30.0 MCHC 35.6 RDW 13.6 Plt Count 144 L MPV 10.1 Absolute Nucleated RBC 0.000 Nucleated RBC % (auto) 0.0 POC Glucose 148 H Microbiology Microbiology Results: Microbiology 09/12/23 12:32 Blood - Venous Blood Culture - Preliminary No growth after 48 hours. 09/12/23 11:36 Blood - Venous Blood Culture - Preliminary No growth after 48 hours. 04/29/24 Unknown Urine clean catch - Urine beebe top Urine Culture - Final Escherichia coli Procedures Date of Service Date of Service: 09/21/23 Assessment & Plan Assessment and plan (1) ALESSANDRA (acute kidney injury): Status: Acute Plan Middle-aged man with ALESSANDRA superimposed on mild CKD in a setting of bacteremia. ALESSANDRA most likely due to hypoperfusion setting of sepsis. Urinary retention a possibility based on clinical findings. Underlying AGN or AIN seem unlikely. Recommendation Keep Lopez Agree with antibiotic coverage. Keep intake more than output. Avoid hypoperfusion Maintain systolic blood pressure more than 100 mm Hg Hold lisinopril, hydrochlorothiazide, meloxicam Monitor renal function we will follow along with the team needs out pt follow up upon discharge Time Spent With Patient Time: Total time managing care of this patient today ____ minutes. Progress Note: Quality Stroke Does the patient have a stroke diagnosis?: No
--- NOTE | 2023-09-15 13:59 | W.MHC.F2F ---
Service Date Service Date: 09/15/23 Encounter Date of encounter: 09/15/23 Encounter: Sepsis, acute prostatitis, ALESSANDRA Reasons for Services Signs and symptoms assessed: Monitor for any new symptoms fever or any urinary complaints Reason for care home: medication management, medication treatment, teach disease management and GI/ assessment (orona management) Homebound: Leaving the home is medically contraindicated at this time without the asist of a device and/or another person due th the listed conditions above and below. Reason homebound: weakness related to hospital stay Homebound supporting statement: Patient is generalized weak post hospitalization stay, has multiple issues including ALESSANDRA, prostatitis-need help with blood draws, appointments, Orona management Certification: Based on the above findings, I certify that this patient is confined to the home and needs intermittent care home care, physical therapy and/or speech therapy, or continues to need occupational therapy. The patient is under my care, and I have initiated the establishment of the plan of care. The patient will be followed by a physician who will periodically review the plan of care. Time Spent With Patient Time: Total time managing care of this patient today ____ minutes.
== END 2023-09-15 14:44 | disposition home health service (06) | DRG 872 ==
LOC: HO.ED 19:30 → HO.EDOVER 19:55 → HO.IMC 09-13 15:18
PROVIDERS: Emergency Medicine; Student in an Organized Health Care Education/Training Program; Admitting Provider Physician Assistant; Emergency Provider Student in an Organized Health Care Education/Training Program; PCP Internal Medicine; Visit Provider Internal Medicine
DX: A41.9 Sepsis, unspecified organism (principal); N17.9 Acute kidney failure, unspecified; R65.20 Severe sepsis without septic shock; I12.9 Hypertensive chronic kidney disease with stage 1 through stage 4 chronic kidney disease, or unspecified chronic kidney disease; B96.20 Unspecified Escherichia coli [E. coli] as the cause of diseases classified elsewhere; E11.22 Type 2 diabetes mellitus with diabetic chronic kidney disease; E78.5 Hyperlipidemia, unspecified; D69.59 Other secondary thrombocytopenia; N18.9 Chronic kidney disease, unspecified; N40.1 Benign prostatic hyperplasia with lower urinary tract symptoms; R33.8 Other retention of urine; Z79.84 Long term (current) use of oral hypoglycemic drugs; Z79.899 Other long term (current) drug therapy
CPT/HCPCS: 36415; 71045; 74177; 76775; 80048; 80053; 81001; 82570; 82947; 83605; 83690; 84156; 85007; 85027; 87040; 87086; 87088; 87186; 93005; 99285; C1758; J0692; J1644; J1885; J2405; Q9967

== ENCOUNTER 2023-09-12 19:46 | Outpatient (BNV) | payer MEDICARE, MEDICAID, SELFPAY | END 2023-09-14 16:30 | PROVIDERS: Admitting Provider Physician Assistant; Emergency Provider Student in an Organized Health Care Education/Training Program; PCP Internal Medicine; Visit Provider Internal Medicine | DX: I51.7 Cardiomegaly (principal) | CPT/HCPCS: 93010 ==

== ENCOUNTER → 2023-09-12 19:46 | Outpatient (BNV) | payer MEDICARE, MEDICAID, SELFPAY | PROVIDERS: Admitting Provider Physician Assistant; Emergency Provider Student in an Organized Health Care Education/Training Program; PCP Internal Medicine; Visit Provider Physician Assistant | DX: N17.9 Acute kidney failure, unspecified (principal); I10 Essential (primary) hypertension | CPT/HCPCS: 99223; 99232; 99239; G0180 ==

== ENCOUNTER → 2023-09-12 19:46 | Outpatient (BNV) | payer MEDICARE, MEDICAID, SELFPAY | PROVIDERS: Admitting Provider Physician Assistant; Emergency Provider Student in an Organized Health Care Education/Training Program; PCP Internal Medicine; Visit Provider Internal Medicine Hypertension Specialist | DX: N17.9 Acute kidney failure, unspecified (principal); N18.2 Chronic kidney disease, stage 2 (mild) | CPT/HCPCS: 99223; 99232 ==

== ENCOUNTER → 2023-09-12 19:46 | Outpatient (BNV) | payer MEDICARE, MEDICAID, SELFPAY | PROVIDERS: Admitting Provider Physician Assistant; Emergency Provider Student in an Organized Health Care Education/Training Program; PCP Internal Medicine; Visit Provider Urology | DX: N17.9 Acute kidney failure, unspecified (principal); R33.9 Retention of urine, unspecified; N41.0 Acute prostatitis; A41.9 Sepsis, unspecified organism; R65.20 Severe sepsis without septic shock | CPT/HCPCS: 99222 ==

== ENCOUNTER → 2023-09-12 19:46 | Outpatient (BNV) | payer MEDICARE, MEDICAID, SELFPAY | PROVIDERS: Admitting Provider Physician Assistant; Emergency Provider Student in an Organized Health Care Education/Training Program; PCP Internal Medicine; Visit Provider Internal Medicine | DX: A41.9 Sepsis, unspecified organism (principal); R65.20 Severe sepsis without septic shock; N41.0 Acute prostatitis | CPT/HCPCS: 99222 ==

== ENCOUNTER 2023-09-21 11:23 | Outpatient (REF) | payer MEDICARE, MEDICAID, SELFPAY ==
[2023-09-21 11:27] LABS: MANUAL DIFF FLAG NO
[2023-09-21 11:31] LABS: Basophils Absolute Auto 0.1 X10*3/uL (0.0-0.2); Basophils Percent Auto 0.5 % (0-2); Eosinophils Absolute Auto 0.2 X10*3/uL (0.0-0.4); Eosinophils Percent Auto 1.4 % (0-4); Hematocrit 44.4 % (42.0-52.0); Hemoglobin 15.5 g/dl (14.0-18.0); Imm Gran Abs Auto 0.35 X10*3/uL (0.00-0.03); Imm Gran Pct Auto 3.3 % (0.0-0.4); Lymphocytes Absolute Auto 2.9 X10*3/uL (1.2-4.9); Lymphocytes Percent Auto 27.7 % (20-40); Mean Corpuscular HGB Conc 34.9 g/dl (31.0-36.0); Mean Corpuscular Hemoglobin 30.7 pg (27.0-33.0); Mean Corpuscular Volume 87.9 fL (80.0-98.0); Mean Platelet Volume 10.2 fL (9.4-12.4); Monocytes Absolute Auto 0.7 X10*3/uL (0.1-1.2); Monocytes Percent Auto 6.9 % (2-11); Neutrophils Absolute Auto 6.3 x10*3/uL (2.0-8.3); Neutrophils Percent Auto 60.2 % (45-73); Platelet Count 290 X10*3/uL (160-400); Red Blood Count 5.05 X10*6/uL (4.60-5.80); Red Cell Distribution Width 13.6 % (11.0-16.0); White Blood Count 10.5 X10*3/uL (4.8-10.8)
[2023-09-21 12:16] LABS: Anion Gap 14 (12-20); Blood Urea Nitrogen 17 mg/dL (9-16); Calcium 9.3 mg/dL (8.4-10.2); Carbon Dioxide 24 mmol/L (22-29); Chloride 106 mmol/L (96-108); Estimated Glomerular Filt Rate > 60; Glucose Random 100 mg/dL (60-115); Potassium 4.4 mmol/L (3.3-5.1); Sodium 140 mmol/L (135-145)
== END 2023-09-21 11:24 | disposition home or self-care (01) ==
LOC: HO.HVNA 11:23
PROVIDERS: Visit Provider Internal Medicine
DX: R78.81 Bacteremia (principal)
CPT/HCPCS: 36415; 80048; 85025

== ENCOUNTER 2023-09-22 09:39 | Outpatient (AMB) | payer MEDICARE, MEDICAID, SELFPAY ==
--- NOTE | 2023-09-22 09:46 | HO.NEPHOV ---
Vital Signs 09/22/23 09:47 Height 14 ft Weight 144 lb BMI 3.6 BP 118/66 Blood Pressure Location Rt brachial Position Sitting Pulse 86 Pulse Source Pulse Oximeter Pulse Oximetry (%) 97 Oxygen Delivery Method Room Air Intake Visit Reasons: CKD/ Confirmed Hothouse Worker Required: No Accompanied by: Self / Same As Patient Allergies nut - unspecified [NUTS] Allergy (Intermediate, Verified 09/22/23 09:48) ITCHY THROAT nitroglycerin [NITROGLYCERIN] Adverse Reaction (Unknown, Verified 09/22/23 09:48) HEADACHES BREAD Allergy (Mild, Uncoded 09/12/23 09:57) RUNNY NOSE Lopid Allergy (Unknown, Uncoded 09/12/23 09:57) Unknown nsaids Allergy (Unknown, Uncoded 09/12/23 09:57) Unknown Percocet Allergy (Unknown, Uncoded 09/12/23 09:57) Unknown HPI Comments Details: 63-year-old male with history of hypertension, [id number] type 2 diabetes, hyperlipidemia, and BPH following with [facility] urology / , presented to the ED for evaluation of right lower quadrant and flank/low back pain as well as nausea, vomiting, subjective fevers and chills ongoing for several days. He was found to have acute kidney injury. ALESSANDRA was most likely due to the combination of hypoperfusion in the setting of sepsis/bacteremia and he also had a component of urinary retention. Lopez catheter was inserted. DAVID inhibitors, HCTZ and meloxicam were held. With IV hydration renal function returned to baseline. He was discharged home with a Lopez. He was seen by Dr. Salvador 2 days ago. Lopez has been removed. He still has some dysuria but no difficulty. Serum creatinine has returned to baseline of 1.12. He does have non nephrotic proteinuria in the setting of diabetes mellitus [facility] Medical History Prostatitis Hyperlipidemia BPH (benign prostatic hyperplasia) Diabetes 1.5, managed as type 2 HTN (hypertension) Surgical History History of knee surgery Social History Household Members: Spouse, Family and Children Housing: Apartment Do you presently have visiting nurse or other home services: No Patient Tobacco Use Status: Never used Tobacco e-Cigarette/Vaping Use: Never Used service: No Physical Exam Vital Signs: Last Vital Signs Pulse 86 09/22/23 09:47 BP 118/66 09/22/23 09:47 Pulse Ox 97 09/22/23 09:47 Oxygen Delivery Method Room Air 09/22/23 09:47 BMI result Body Mass Index 3.6 Last Vital Signs Temp 98.7 F 09/15/23 11:06 Pulse 71 09/15/23 11:06 Resp 18 09/15/23 11:06 BP 103/59 L 09/15/23 11:06 Pulse Ox 96 09/15/23 11:06 O2 Del Method Room Air 09/15/23 11:06 BMI result Body Mass Index 25.0 Const General: comfortable Nutritional Appearance: well nourished Orientation/consciousness: patient oriented x3 HEENT Head: No normal to inspection Mouth: moist mucous membranes Neck Neck: Yes supple and Yes no JVD Resp Auscultation: clear to auscultation bilaterally, no rales and rub present Cardio Jugular venous distension: no JVD Palpation: no palpable S3 and no palpable S4 Heart sounds: no rubs GI Palpation (GI): Soft to palpation and nontender Percussion: No Fluid wave present General: Yes no CVA tenderness Back/Spine/Pelvis Back: no CVA tenderness Skin General skin exam: no rashes or lesions noted Neuro General: patient oriented x3 Extrem General: Yes no pedal edema and No clubbing Results Reviewed Nephrology Results: Hgb 15.5 g/dl (14.0-18.0) 09/21/23 WBC 10.5 X10*3/uL (4.8-10.8) 09/21/23 Plt Count 290 X10*3/uL (160-400) 09/21/23 Sodium 140 mmol/L (135-145) 09/21/23 Potassium 4.4 mmol/L (3.3-5.1) 09/21/23 Chloride 106 mmol/L (96-108) 09/21/23 Carbon Dioxide 24 mmol/L (22-29) 09/21/23 BUN 17 mg/dL (9-16) H 09/21/23 Creatinine 1.21 mg/dL (0.5-1.4) 09/21/23 Calcium 9.3 mg/dL (8.4-10.2) 09/21/23 Urine Protein >=1000 (4+) mg/dL (Neg-Trace) H 09/12/23 Urine Creatinine 275.66 mg/dL 09/13/23 Protein/Creatinin Ratio 116 mg/g creat (25-148) 06/17/22 Renal US 09/13/23 Assessment & Plan Assessment & Plan (1) ALESSANDRA (acute kidney injury): Code(s): N17.9 - Acute kidney failure, unspecified Category: Medical Plan 63-year-old man with ALESSANDRA superimposed on mild CKD in a setting of longstanding diabetes mellitus and enlarged prostate with non nephrotic range proteinuria. The ALESSANDRA was due to hypoperfusion combined with possible urinary retention. Renal function is back to baseline. Baseline workup for proteinuria was unremarkable He is waiting for laser treatment of BPH. Blood pressure is well controlled. We will continue with DAVID inhibitor for renal protection. We would avoid NSAIDs due to the risk of hypoperfusion in combination with DAVID inhibitors. I have encouraged him to increase p.o. fluid intake Stay on low-sodium diet. We will be happy to follow him along with the team. Orders: Orders Complete Blood Count Auto Diff 4 Months N17.9 - Acute kidney failure, unspecified, N18.30 - Chronic kidney disease, stage 3 unspecified Total Protein Urine Random 4 Months N17.9 - Acute kidney failure, unspecified Creatinine Urine 4 Months N05.9 - Unspecified nephritic syndrome with unspecified morphologic changes, N17.9 - Acute kidney failure, unspecified Comprehensive Met. Panel 4 Months N17.9 - Acute kidney failure, unspecified, N18.9 - Chronic kidney disease, unspecified Coding Level of Care Code Est Pt Level 4 (73356) Diagnoses ALESSANDRA (acute kidney injury) N17.9
[2023-09-22 09:47] VITALS: BP 118/66; PULSE 86; O2SAT 97
== END 2023-09-22 10:08 | disposition home or self-care (01) ==
PROVIDERS: PCP Internal Medicine; Visit Provider Internal Medicine Hypertension Specialist
DX: N17.9 Acute kidney failure, unspecified (principal)
CPT/HCPCS: 99214

== ENCOUNTER → 2023-09-22 09:39 | Outpatient (BNVA) | payer MEDICARE, MEDICAID, SELFPAY | PROVIDERS: PCP Internal Medicine; Visit Provider Internal Medicine Hypertension Specialist | DX: N17.9 Acute kidney failure, unspecified (principal) | CPT/HCPCS: 99212 ==

== ENCOUNTER 2023-10-13 09:23 | Outpatient (REF) | payer MEDICARE, MEDICAID, SELFPAY ==
[2023-10-13 11:26] LABS: MANUAL DIFF FLAG NO
[2023-10-13 11:30] LABS: Basophils Percent Auto 0.4 % (0-2); Eosinophils Absolute Auto 0.2 X10*3/uL (0.0-0.4); Eosinophils Percent Auto 2.1 % (0-4); Hematocrit 43.9 % (42.0-52.0); Hemoglobin 15.5 g/dl (14.0-18.0); Imm Gran Abs Auto 0.05 X10*3/uL (0.00-0.03); Imm Gran Pct Auto 0.7 % (0.0-0.4); Lymphocytes Absolute Auto 2.2 X10*3/uL (1.2-4.9); Lymphocytes Percent Auto 28.3 % (20-40); Mean Corpuscular HGB Conc 35.3 g/dl (31.0-36.0); Mean Corpuscular Hemoglobin 30.6 pg (27.0-33.0); Mean Corpuscular Volume 86.8 fL (80.0-98.0); Mean Platelet Volume 10.1 fL (9.4-12.4); Monocytes Absolute Auto 0.7 X10*3/uL (0.1-1.2); Monocytes Percent Auto 8.9 % (2-11); Neutrophils Absolute Auto 4.5 x10*3/uL (2.0-8.3); Neutrophils Percent Auto 59.6 % (45-73); Platelet Count 218 X10*3/uL (160-400); Red Blood Count 5.06 X10*6/uL (4.60-5.80); Red Cell Distribution Width 13.2 % (11.0-16.0); White Blood Count 7.6 X10*3/uL (4.8-10.8)
[2023-10-13 11:57] LABS: Anion Gap 12 (12-20); Blood Urea Nitrogen 17 mg/dL (9-16); Calcium 9.6 mg/dL (8.4-10.2); Carbon Dioxide 23 mmol/L (22-29); Chloride 108 mmol/L (96-108); Estimated Glomerular Filt Rate > 60; Glucose Random 149 mg/dL (60-115); Sodium 139 mmol/L (135-145)
== END 2023-10-13 09:24 | disposition home or self-care (01) ==
LOC: HO.HHCL 09:23
PROVIDERS: Visit Provider Nurse Practitioner Primary Care
DX: R30.0 Dysuria (principal)
CPT/HCPCS: 36415; 80048; 85025; 87086

== ENCOUNTER 2024-03-27 10:37 | Outpatient (REF) | payer MEDICARE, MEDICAID, SELFPAY ==
[2024-03-27 11:29] LABS: MANUAL DIFF FLAG NO
[2024-03-27 11:35] LABS: Basophils Percent Auto 0.6 % (0-2); Eosinophils Absolute Auto 0.2 X10*3/uL (0.0-0.4); Eosinophils Percent Auto 2.8 % (0-4); Hematocrit 41.6 % (42.0-52.0); Hemoglobin 14.5 g/dl (14.0-18.0); Imm Gran Abs Auto 0.01 X10*3/uL (0.00-0.03); Imm Gran Pct Auto 0.1 % (0.0-0.4); Lymphocytes Absolute Auto 2.2 X10*3/uL (1.2-4.9); Lymphocytes Percent Auto 33.2 % (20-40); Mean Corpuscular HGB Conc 34.9 g/dl (31.0-36.0); Mean Corpuscular Hemoglobin 29.1 pg (27.0-33.0); Mean Corpuscular Volume 83.4 fL (80.0-98.0); Mean Platelet Volume 10.4 fL (9.4-12.4); Monocytes Absolute Auto 0.6 X10*3/uL (0.1-1.2); Neutrophils Absolute Auto 3.7 x10*3/uL (2.0-8.3); Neutrophils Percent Auto 54.3 % (45-73); Platelet Count 239 X10*3/uL (160-400); Red Blood Count 4.99 X10*6/uL (4.60-5.80); Red Cell Distribution Width 12.5 % (11.0-16.0); White Blood Count 6.8 X10*3/uL (4.8-10.8)
[2024-03-27 12:04] LABS: Alanine Aminotransferase 47 U/L (0-40); Alkaline Phosphatase 84 U/L (39-117); Anion Gap 9 (12-20); Aspartate Amino Transferase 30 U/L (5-37); Bilirubin Total 0.4 mg/dL (0.0-1.0); Blood Urea Nitrogen 15 mg/dL (9-16); C Reactive Protein < 0.10 mg/dL (< or = 0.50); Calcium 9.1 mg/dL (8.4-10.2); Carbon Dioxide 28 mmol/L (22-29); Chloride 107 mmol/L (96-108); Estimated Glomerular Filt Rate > 60; Glucose Random 94 mg/dL (60-115); Potassium 3.8 mmol/L (3.3-5.1); Sodium 140 mmol/L (135-145); Total Protein 6.9 g/dL (6.5-8.0)
== END 2024-03-27 10:38 | disposition home or self-care (01) ==
LOC: HO.HHCL 10:37
PROVIDERS: Visit Provider Internal Medicine
DX: R10.13 Epigastric pain (principal)
CPT/HCPCS: 36415; 80053; 85025; 86140

== ENCOUNTER 2024-04-19 08:11 | Outpatient (REF) | payer MEDICARE, MEDICAID, SELFPAY ==
[2024-04-19 11:14] LABS: MANUAL DIFF FLAG NO
[2024-04-19 11:18] LABS: Basophils Percent Auto 0.4 % (0-2); Eosinophils Absolute Auto 0.1 X10*3/uL (0.0-0.4); Eosinophils Percent Auto 1.8 % (0-4); Hematocrit 45.3 % (42.0-52.0); Hemoglobin 15.2 g/dl (14.0-18.0); Imm Gran Abs Auto 0.03 X10*3/uL (0.00-0.03); Imm Gran Pct Auto 0.4 % (0.0-0.4); Lymphocytes Absolute Auto 2.2 X10*3/uL (1.2-4.9); Lymphocytes Percent Auto 28.1 % (20-40); Mean Corpuscular HGB Conc 33.6 g/dl (31.0-36.0); Mean Corpuscular Hemoglobin 28.2 pg (27.0-33.0); Mean Platelet Volume 10.1 fL (9.4-12.4); Monocytes Absolute Auto 0.7 X10*3/uL (0.1-1.2); Monocytes Percent Auto 9.2 % (2-11); Neutrophils Absolute Auto 4.6 x10*3/uL (2.0-8.3); Neutrophils Percent Auto 60.1 % (45-73); Platelet Count 263 X10*3/uL (160-400); Red Blood Count 5.39 X10*6/uL (4.60-5.80); Red Cell Distribution Width 13.2 % (11.0-16.0); White Blood Count 7.7 X10*3/uL (4.8-10.8)
[2024-04-19 11:28] LABS: Appearance Urine Clear; Color Urine Yellow; Glucose Urine UA Negative (Negative); Leukocyte Esterase Urine Negative (Negative); Nitrite Urine Negative (Negative); UMIC TRIGGER UACC YES; Urine Blood Negative (Negative); Urine Ketones Negative (Negative); Urine Protein 30 (1+) mg/dL (Neg-Trace)
[2024-04-19 11:32] LABS: Bacteria Urine None Seen (None Seen); Hyaline Casts Urine 0-2 /LPF (0-2); RBC Urine 0-2 /HPF (0-2); Squamous Epithelial Cell Urine 0-2 /HPF (0-2); WBC Urine 0-5 /HPF (0-5)
[2024-04-19 12:00] LABS: Alanine Aminotransferase 47 U/L (0-40); Albumin Level 4.1 g/dL (3.5-5.0); Alkaline Phosphatase 81 U/L (39-117); Anion Gap 13 (12-20); Aspartate Amino Transferase 35 U/L (5-37); Bilirubin Total 0.7 mg/dL (0.0-1.0); Blood Urea Nitrogen 21 mg/dL (9-16); Calcium 9.5 mg/dL (8.4-10.2); Carbon Dioxide 28 mmol/L (22-29); Chloride 105 mmol/L (96-108); Estimated Glomerular Filt Rate 52; Glucose Random 108 mg/dL (60-115); Potassium 3.6 mmol/L (3.3-5.1); Sodium 142 mmol/L (135-145); Total Protein 7.3 g/dL (6.5-8.0)
[2024-04-19 12:06] LABS: Prostate Specific Antigen Scr 3.31 ng/mL (<0.05-4.0)
[2024-04-19 12:25] LABS: Creatinine Urine 198.06 mg/dL; Total Protein Urine Random 38 mg/dL (<12)
== END 2024-04-19 08:12 | disposition home or self-care (01) ==
LOC: HO.HHCL 08:11
PROVIDERS: Internal Medicine; Internal Medicine Hypertension Specialist; Visit Provider Internal Medicine
DX: Z12.5 Encounter for screening for malignant neoplasm of prostate (principal); N05.9 Unspecified nephritic syndrome with unspecified morphologic changes; N17.9 Acute kidney failure, unspecified; N18.9 Chronic kidney disease, unspecified; N18.30 Chronic kidney disease, stage 3 unspecified; N40.1 Benign prostatic hyperplasia with lower urinary tract symptoms; R35.0 Frequency of micturition; R80.9 Proteinuria, unspecified
CPT/HCPCS: 36415; 80053; 81001; 82570; 84153; 84156; 85025

== ENCOUNTER 2024-05-23 07:53 | Outpatient (REF) | payer MEDICARE, MEDICAID, SELFPAY ==
[2024-05-23 09:08] LABS: Anion Gap 9 (12-20); Blood Urea Nitrogen 24 mg/dL (9-16); Calcium 8.9 mg/dL (8.4-10.2); Carbon Dioxide 29 mmol/L (22-29); Chloride 108 mmol/L (96-108); Cholesterol 153 mg/dL (<200); Estimated Glomerular Filt Rate 58; Glucose Random 123 mg/dL (60-115); HDL Cholesterol 31 mg/dL (>40); LDL Cholesterol Calculated 97 mg/dL (<100); Potassium 4.4 mmol/L (3.3-5.1); Sodium 142 mmol/L (135-145); Triglycerides 127 mg/dL (<150)
== END 2024-05-23 07:54 | disposition home or self-care (01) ==
LOC: HO.LAB 07:53
PROVIDERS: Internal Medicine; PCP Internal Medicine; Visit Provider Internal Medicine Rheumatology
DX: N17.9 Acute kidney failure, unspecified (principal); E78.1 Pure hyperglyceridemia
CPT/HCPCS: 36415; 80048; 80061

== ENCOUNTER 2024-05-29 09:31 | Outpatient (AMB) | payer MEDICARE, MEDICAID, SELFPAY ==
[2024-05-29 09:54] VITALS: BP 118/70; PULSE 66; O2SAT 99; BMI 23.6
--- NOTE | 2024-05-29 09:54 | HO.NEPHOV ---
Vital Signs 05/29/24 09:54 Height 5 ft 5 in Weight 142 lb BMI 23.6 BP 118/70 Blood Pressure Location Rt brachial Position Sitting Pulse 66 Pulse Source Pulse Oximeter Pulse Oximetry (%) 99 Oxygen Delivery Method Room Air Intake Visit Reasons: R/S 02/03/2024/ CONF Manager Public Required: No Accompanied by: Self / Same As Patient Allergies nut - unspecified [NUTS] Allergy (Intermediate, Verified 05/29/24 09:56) ITCHY THROAT nitroglycerin [NITROGLYCERIN] Adverse Reaction (Unknown, Verified 05/29/24 09:56) HEADACHES BREAD Allergy (Mild, Uncoded 09/12/23 09:57) RUNNY NOSE Lopid Allergy (Unknown, Uncoded 09/12/23 09:57) Unknown nsaids Allergy (Unknown, Uncoded 09/12/23 09:57) Unknown Percocet Allergy (Unknown, Uncoded 09/12/23 09:57) Unknown HPI Comments Details: 63-year-old male with history of hypertension, [id number] type 2 diabetes, hyperlipidemia, and BPH following with [facility] urology / , presented to the ED for evaluation of right lower quadrant and flank/low back pain as well as nausea, vomiting, subjective fevers and chills ongoing for several days. He was found to have acute kidney injury. ALESSANDRA was most likely due to the combination of hypoperfusion in the setting of sepsis/bacteremia and he also had a component of urinary retention. Lopez catheter was inserted. DAVID inhibitors, HCTZ and meloxicam were held. With IV hydration renal function returned to baseline. He was discharged home with a Lopez. He was seen by Dr. Salvador 2 days ago. Lopez has been removed. He still has some dysuria but no difficulty. Serum creatinine has returned to baseline of 1.12. He does have non nephrotic proteinuria in the setting of diabetes mellitus 05/29/24 Here for f/u Had difficulty urinating with back pain [facility] Medical History Prostatitis Hyperlipidemia BPH (benign prostatic hyperplasia) Diabetes 1.5, managed as type 2 HTN (hypertension) Surgical History History of knee surgery Social History Household Members: Spouse, Family and Children Housing: Apartment Do you presently have visiting nurse or other home services: No Patient Tobacco Use Status: Never used Tobacco e-Cigarette/Vaping Use: Never Used service: No Physical Exam Vital Signs: Last Vital Signs Pulse 66 05/29/24 09:54 BP 118/70 05/29/24 09:54 Pulse Ox 99 05/29/24 09:54 Oxygen Delivery Method Room Air 05/29/24 09:54 BMI result Body Mass Index 23.6 Comfortable Neck supple no JVD. Lungs entry equal no rales. Heart S1-S2 heard no gallop or rub. Abdomen soft nontender. Neuro alert awake oriented. No asterixis. Extremities no edema. Results Reviewed Nephrology Results: Hgb 15.2 g/dl (14.0-18.0) 04/19/24 WBC 7.7 X10*3/uL (4.8-10.8) 04/19/24 Plt Count 263 X10*3/uL (160-400) 04/19/24 Sodium 142 mmol/L (135-145) 05/23/24 Potassium 4.4 mmol/L (3.3-5.1) 05/23/24 Chloride 108 mmol/L (96-108) 05/23/24 Carbon Dioxide 29 mmol/L (22-29) 05/23/24 BUN 24 mg/dL (9-16) H 05/23/24 Creatinine 1.25 mg/dL (0.5-1.4) 05/23/24 Calcium 8.9 mg/dL (8.4-10.2) 05/23/24 Urine Protein 30 (1+) mg/dL (Neg-Trace) H 04/19/24 Urine Creatinine 198.06 mg/dL 04/19/24 Assessment & Plan Assessment & Plan (1) ALESSANDRA (acute kidney injury): Code(s): N17.9 - Acute kidney failure, unspecified Category: Medical Plan 63-year-old man with ALESSANDRA superimposed on mild CKD in a setting of longstanding diabetes mellitus and enlarged prostate with non nephrotic range proteinuria. The ALESSANDRA was due to hypoperfusion combined with possible urinary retention. Renal function is back to baseline. Baseline workup for proteinuria was unremarkable Blood pressure is well controlled. We will continue with DAVID inhibitor for renal protection. We would avoid NSAIDs due to the risk of hypoperfusion in combination with DAVID inhibitors. I have encouraged him to increase p.o. fluid intake Stay on low-sodium diet. Follow renal USG ordered Orders: Orders US renal BI Today I10 - Essential (primary) hypertension Coding Level of Care Code Est Pt Level 4 (03828) Diagnoses ALESSANDRA (acute kidney injury) N17.9
== END 2024-05-29 10:16 | disposition home or self-care (01) ==
PROVIDERS: PCP Internal Medicine; Visit Provider Internal Medicine Hypertension Specialist
DX: N17.9 Acute kidney failure, unspecified (principal)
CPT/HCPCS: 99214

== ENCOUNTER → 2024-05-29 09:31 | Outpatient (BNVA) | payer MEDICARE, MEDICAID, SELFPAY | PROVIDERS: PCP Internal Medicine; Visit Provider Internal Medicine Hypertension Specialist | DX: N17.9 Acute kidney failure, unspecified (principal) | CPT/HCPCS: 99212 ==

== ENCOUNTER 2024-06-05 11:06 | Outpatient (REF) | payer MEDICARE, MEDICAID, SELFPAY ==
--- NOTE | ~2024-06-05 | US_ITS ---
EXAMINATION: US RETROPERITONEAL LIMITED (RENAL ONLY) CLINICAL INFORMATION: Essential hypertension.. COMPARISON: Renal ultrasound 09/13/2023. Correlation made with CT abdomen and pelvis with contrast 09/12/2023. TECHNIQUE: Real-time imaging of the kidneys. FINDINGS: RIGHT KIDNEY: 10.2 x 5.1 x 3.8 cm (SAG x AP x TRV). The kidney is normal in size, contour, and echogenicity. Renal cortical thickness is normal. No calculi or focal parenchymal lesions. No hydronephrosis. LEFT KIDNEY: 10.2 x 5.2 x 5.3 cm (SAG x AP x TRV). The kidney is normal in size, contour, and echogenicity. Renal cortical thickness is normal. No calculi or suspicious focal parenchymal lesions. No hydronephrosis. There is a lower pole simple cyst measuring 1.0 cm. US/US renal BI IMPRESSION: 1. Aside from a simple 1.0 cm left lower pole cyst, normal kidneys. Electronically signed by: Jareth Galindo MD 06/05/2024 12:01 PM [facility]
== END 2024-06-05 11:07 | disposition home or self-care (01) ==
LOC: HO.US 11:06
PROVIDERS: PCP Internal Medicine; Visit Provider Internal Medicine Hypertension Specialist
DX: I10 Essential (primary) hypertension (principal)
CPT/HCPCS: 76775

== ENCOUNTER → 2024-06-05 11:08 | Outpatient (BNV) | payer MEDICARE, MEDICAID, SELFPAY | PROVIDERS: PCP Internal Medicine; Visit Provider Radiology Diagnostic Radiology | DX: I10 Essential (primary) hypertension (principal) | CPT/HCPCS: 76775 ==

== ENCOUNTER 2024-06-27 07:35 | Outpatient (AMB) | payer MEDICARE, MEDICAID, SELFPAY ==
--- OUTSIDE RECORDS SUMMARY | 2024-06-27 07:37 | XMS_ITS | Encounter Summary ---
Author Organization [email or web address] Address [address] [facility] 7t [place] [address] Care Team Providers Care Meat Hostess Name Role Phone Arsh Gamez MD Primary Care Provide r Reason for Visit * Reason Comments Med Refill Encounter Details Date Type Department Care Team ([facility] st Contact Info) Description 06/20/2023 Refill [facility] [address] [place], [place] [phone] Arsh Gamez MD 230 [place], [place] [phone] Pain Social History Tobacco Use Types Packs/Day Years Used Date Smoking Tobacco: Never Smokeless Tobacco: Never Housing Stability Answer Date Recorded What is your housing situation today? I have timothy granger 03/06/[address] you li ve. Do you have problems with any of the following? None of the above 03/06/2023 Food Insecurity Answer Date Recorded Within the past 12 months, y ou worried that your food would run out before you got money to buy more: Never True 03/06/2023 Within the past 12 months,th e food you bought just didn't last and you didn't have enough money to get more: Never True Transportation Answer Date Recorded In the past 12 months, has l ack of transportation kept you from medical appts, meetings, work or from getting things needed for daily living? No 03/06/2023 Utilities Answer Date Recorded In the past 12 months, has t he electric, gas, oil or water company threatened to shut off services in your home? No 03/06/2023 Depression Answer Date Recorded Patient Health Questionnaire-2 Score 0 06/17/2022 Sex and Gender Information Value Date Recorded Sex Assigned at Male 03/15/2022 10:15 AM EDT Legal Sex Male 10:15 AM EDT Gender Identity Male 03/15/2022 10:15 AM EDT Sexual Orientation Straight 03/15/2022 10 :15 AM EDT documented as of this encounter Plan of Treatment Upcoming Encounters Date Type Department Care Team (Late st Contact Info) Description 07/16/2024 8:00 AM EST Office Visit [facility] ADULT DENTAL [address] [place] [address] Elizabeth Cordova, DMD 505 [place] [address] 07/23/2024 8:00 AM EDT Office Visit [facility] ADULT D[facility] [address] [place] [address] Shaji-Sania Marin, DDS 230 [place] [address] 11/27/2024 8:00 AM EDT Office Visit [facility] ADULT DENTAL [address] [place] [address] Dawn Bird documented as of this encounter Visit Diagnoses Diagnosis Pain Generalized pain documented in this encounter Care Teams Meat Hostess Relationship Specialty Start Date End Date Arsh Gamez MD [address] [place] [address] PCP - General Internal Medicine 12/18/13 documented as of this encounter
--- OUTSIDE RECORDS SUMMARY | 2024-06-27 07:37 | XMS_ITS | Clinical Summary ---
Author Organization [facility] Facility Address [address] [address] Care Team Providers Care Yarn Inspector Name Role Phone Arsh Sharif MD Primary Care Provider Allergies No known active allergies Medications meloxicam (MOBIC) 15 MG tablet Take 1 tablet by mouth 1 (one) time each day 1 Active omeprazole (PriLOSEC) [address] capsule Take 1 capsule by mouth 1 (one) time each day 1 Active lisinopril 40 MG tablet Take 1 tablet by mouth 1 (one) time each day 1 Active metFORMIN XR (GLUCOPHAGE-XR) 500 MG 24 hr tablet Take 1 tablet by mouth 1 (one) time each day 1 Active metoprolol succinate XL (TOPROL XL) 25 MG 24 hr tablet Take 1 tablet by mouth 1 (one) time each day 1 Active Mapap Arthritis Pain 650 MG 8 hr tablet Take 1 tablet by mouth every 8 (eight) hours if needed 1 Active SUMAtriptan (IMITREX) 50 MG tablet Take 1 tablet by mouth 1 (one) time each day 1 Active hydrALAZINE 50 MG tablet Take 1 tablet by mouth 1 (one) time each day 1 Active tamsulosin (FLOMAX) 0.4 MG 24 hr capsule Take 1 capsule by mouth 1 (one) time each day 1 Active aspirin (ST THEA) 81 MG EC tablet Take 81 mg by mouth 1 (one) time each day Active cyclobenzaprine (FLEXERIL) 10 MG tablet Take 10 mg by mouth 2 (two) times a day Active loratadine (CLARITIN) 10 MG tablet Take 10 mg by mouth 1 (one) time each day Active amLODIPine (NORVASC) 5 MG tablet 1 Active hydroCHLOROthia zide 12.5 MG tablet Take 12.5 mg by mouth daily Active meclizine (ANTIVERT) 25 MG tablet TOME MARCELINA TABLETA TIM VECES AL D A CUANDO SEA NECESARIO 1 Active tobramycin-dexa methasone (TOBRADEX) ophthalmic solution 1 Active Active Problems Problem Noted Date Diagnosed Date Multiple renal cysts 03/04/2021 Nephrolithiasis 03/04/2021 Hypertensive chronic kidney disease, unspecified, with chronic kidney disease stage I through stage IV, or unspecified 01/23/2021 Proteinuria 01/23/2021 Diabetes mellitus 01/23/2021 Resolved Problems Problem Noted Date Diagnosed Date Resolved Date Acute pancreatitis 01/23/2021 2 H/O: depression 01/23/2021 06/22/2021 Benign prostatic hyperplasia 01/23/2021 06/22/2021 Gastroesophageal reflux disease 01/23/2021 06/22/2021 Tachycardia 01/23/2021 06/22/2021 Family History Medical History Relation Comments Hypertension Brother Stroke Brother Hypertension Father Hypertension Mother Diabetes Sister Hypertension Sister Kidney disease Sister Stroke Sister Relation Status Comments Brother Father Mother Sister Social History Tobacco Use Types Packs/Day Years Used Date Smoking Tobacco: Never Smokeless Tobacco: Never Alcohol Use Standard Drinks/Week Comments Yes 0 (1 standard drink = 0.6 oz pur e alcohol) Sex and Gender Information Value Date Recorded Sex Assigned at Not on file Legal Sex Male 5:04 PM EST Gender Identity Not on file Sexual Orientation Not on file Last Filed Vital Signs Vital Sign Reading Time Taken Comments Blood Pressure 115/62 08/24/2021 3:12 PM EDT Pulse 78 08/24/2021 3:12 PM EDT Temperature - - Respiratory Rate - - Oxygen Saturation 97% 03/04/2021 9:09 AM EDT Inhaled Oxygen Concentration - - Weight 65.3 kg (144 lb) 08/24/2021 3:12 PM EDT Height - - Body Mass Index - - Plan of Treatment Health Maintenance Due Date Last Done Comments Pneumococcal Vaccine: Pediatrics (0 to 5 Years) and At-Risk Patients (6 to 64 Years) (1 of 2 - PCV) 02/24/1966 Colorectal Cancer Screening: Annual FOBT 02/24/2009 Colorectal Cancer Screening: Colonoscopy 02/24/2009 Colorectal Cancer Screening: Sigmoidoscopy 02/24/2009 Diabetes: Ophthalmology Exam 01/23/2021 Diabetes: Pedal Pulse Checked 01/23/2021 Diabetes: Sensory Foot Exam 01/23/2021 Diabetes: Visual Foot Exam 01/23/2021 Diabetes: Hemoglobin A1C 09/14/2022 06/17/2022 Influenza Vaccine (#1) 2024 2, 05/14/2021, 01/29/2020, Additional history exists Hepatitis B Vaccine Aged Out 04/17/2001, 01/12/2000, 12/14/1999 No longer eligible based on patient's age to complete this topic Insurance [place]ICARE [place]ID [place] Care Teams Yarn Inspector Relationship Specialty Start Date End Date Arsh Sharif MD [address] [place] [address] [phone] PCP - General Internal Medicine 08/24/21
--- OUTSIDE RECORDS SUMMARY | 2024-06-27 07:37 | XMS_ITS | Encounter Summary ---
Author Organization [employer] Address [address] [facility] 7t [place] [address] Care Team Providers Care Horticulture Superintendent Name Role Phone Arsh Gamez MD Primary Care Provide r Reason for Visit * Reason Comments Med Refill Encounter Details Date Type Department Care Team ([facility] st Contact Info) Description 04/06/2024 Refill [facility] ADULT DENTAL [address] [place], [place] [phone] Power Davis, OLIVA 230 [place] [address] Social History Tobacco Use Types Packs/Day Years Used Date Smoking Tobacco: Never Passive Smoke Exposure: Never Smokeless Tobacco: Never Alcohol Use Standard Drinks/Week Comments Defer 0 (1 standard drink = 0.6 oz pur e alcohol) Depression Answer Date Recorded Patient Health Questionnaire-9 Score 0 09/29/2023 Patient Health Questionnaire-9 Score 0 09/29/2023 Last PHQ-9: Questionnaire Data Not on file 0 09/29/2023 Housing Stability Answer Date Recorded What is your housing situation today? I have timothy granger 09/29/[address] you li ve. Do you have problems with any of the following? None of the above 09/29/2023 Food Insecurity Answer Date Recorded Within the past 12 months, y ou worried that your food would run out before you got money to buy more: Never True 09/29/2023 Within the past 12 months,th e food you bought just didn't last and you didn't have enough money to get more: Never True Transportation Answer Date Recorded In the past 12 months, has l ack of transportation kept you from medical appts, meetings, work or from getting things needed for daily living? No 09/29/2023 Utilities Answer Date Recorded In the past 12 months, has t he electric, gas, oil or water company threatened to shut off services in your home? No 09/29/2023 Depression Answer Date Recorded Patient Health Questionnaire-2 Score 0 09/29/2023 Internet Access Answer Date Recorded Internet Access Q1 Yes 01/16/2024 Internet Access Q2 Not on file 01/16/2024 Sex and Gender Information Value Date Recorded Sex Assigned at Male 03/15/2022 10:15 AM EDT Legal Sex Male 10:15 AM EDT Gender Identity Male 03/15/2022 10:15 AM EDT Sexual Orientation Straight 03/15/2022 10 :15 AM EDT documented as of this encounter Miscellaneous Notes * Telephone Encounter - Power Davis DMD - 04/09/2024 7:55 AM EST Approving, but needs appt for additional refills. documented in this encounter Plan of Treatment Upcoming Encounters Date Type Department Care Team (Late st Contact Info) Description 07/16/2024 8:00 AM EST Office Visit [facility] ADULT DENTAL [address] [place] [address] Elizabeth Cordova DMD 505 [place] [address] 07/23/2024 8:00 AM EDT Office Visit [facility] ADULT DENTAL [address] [place] [address] Girard-Marin, Sania, DDS 230 [place], [place] [phone] 11/27/2024 8:00 AM EDT Office Visit [facility] ADULT DENTAL [address] [place] [address] Dawn Bird documented as of this encounter Visit Diagnoses Not on filedocumented in this encounter Additional Health Concerns Assessment Noted Time PHQ-9 Depression Total Score: 0 09/29/19 24 9:32 AM EDT documented as of this encounter Care Teams Horticulture Superintendent Relationship Specialty Start Date End Date Arsh Gamez MD 230 [place] [address] PCP - General Internal Medicine 12/18/13 documented as of this encounter
--- OUTSIDE RECORDS SUMMARY | 2024-06-27 07:37 | XMS_ITS | Encounter Summary ---
Author Organization [employer] Address [address] [facility] 7t [place] [address] Care Team Providers Care Truck Loader Name Role Phone Arsh Gamez MD Primary Care Provide r Reason for Visit * Reason Onset Date Comments Paperwork/Forms 05/29/2024 Encounter Details Date Type Department Care Team ([facility] st Contact Info) Description 05/29/2024 Telephone [facility] MED[facility]INE [address] [place], [place] [phone] Autumn Jones, RN [address] [place] [address] Paperwork/Forms Social History Tobacco Use Types Packs/Day Years [...] encounter Miscellaneous Notes * Telephone Encounter - Autumn Jones RN - 05/29/2024 9:04 AM EST Pt walked into green team requesting to speak with RN. He explains that he needs a letter stating medical conditions because they are trying to take away his SSI. Advised to present to HIM and fill out request for letter form. Pt will go down there now. documented in this encounter Plan of Treatment Upcoming Encounters Date Type Department Care Team (Late st Contact Info) Description 07/16/2024 8:00 AM EST Office Visit [facility] ADULT DENTAL [address] [place] [address] Elizabeth Cordova, DMD 505 [place] [address] 07/23/2024 8:00 AM EDT Office Visit [facility] ADULT DENTAL [address] [place] [address] Sania Chopra, DDS 230 [place] [address] 11/27/2024 8:00 AM EDT Office Visit [facility] ADULT DENTAL [address] [place] [address] Dawn Bird documented as of this encounter Visit Diagnoses Not on filedocumented in this encounter Additional Health Concerns Assessment Noted Time PHQ-9 Depression Total Score: 0 09/29/19 24 9:32 AM EDT documented as of this encounter Care Teams Truck Loader Relationship Specialty Start Date End Date Arsh Gamez MD 230 [facility] [place] [address] PCP - General Internal Medicine 12/18/13 documented as of this encounter
--- OUTSIDE RECORDS SUMMARY | 2024-06-27 07:37 | XMS_ITS | Encounter Summary ---
Author Organization [employer] Address [address] [facility] 7t [place] [address] Care Team Providers Care Mortgage Closing Clerk Name Role Phone Arsh Gamez MD Primary Care Provide r Reason for Visit * Reason Onset Date Comments Med Change Request Prior Authorization 03/10/2023 SUMAtriptan (Imitrex) 50 MG tablet Encounter Details Date Type Department Care Team ([facility] st Contact Info) Description 03/10/2023 Refill [facility] MEDICINE [address] [place], [place] [phone] Arsh Gamez MD 230 [place], [place] [phone] Social History Tobacco Use Types Packs/Day Years Used Date Smoking Tobacco: Never Smokeless Tobacco: Never Housing Stability Answer Date Recorded What is your housing situation today? I have timothysuresh granger 03/06/[address] you [...] encounter Miscellaneous Notes * Telephone Encounter - Jena Jones RN - 03/15/2023 3:36 PM EDT Called pharmacy to verify, pt would need PA because insurance will not cover 4 pills a day without it. * Telephone Encounter - Irene Sorensen - 03/11/2023 11:31 AM EDT PA required for SUMAtriptan (Imitrex) 50 MG tablet 4 tabs/day. Please advise. Thank you documented in this encounter Plan of Treatment Upcoming Encounters Date Type Department Care Team (Late st Contact Info) Description 07/16/2024 8:00 AM EST Office Visit [facility] ADULT DENTAL [address] [place] [address] Elizabeth Cordova, DMD 505 [place] [address] 07/23/2024 8:00 AM EDT Office Visit [facility] ADULT DENTAL [address] [place] [address] Sania Chopra, DDS [address] [place] [address] 11/27/2024 8:00 AM EDT Office Visit [facility] ADULT DENTAL [address] [place] [address] Dawn Bird documented as of this encounter Visit Diagnoses Not on filedocumented in this encounter Care Teams Mortgage Closing Clerk Relationship Specialty Start Date End Date Arsh Gamez MD [address] [place] [address] PCP - General Internal Medicine 12/18/13 documented as of this encounter
--- OUTSIDE RECORDS SUMMARY | 2024-06-27 07:37 | XMS_ITS | Encounter Summary ---
Author Organization [employer] Address [address] [facility] 7t [place] [address] Care Team Providers Care Glove Wrapper Name Role Phone Arsh Gamez MD Primary Care Provide r Reason for Visit * Reason Onset Date Comments rescheduled appt mistakenly cancelled 05/17/2024 Encounter Details Date Type Department Care Team (Late st Contact Info) Description 05/17/2024 Telephone [facility] ADULT DENTAL [address] [place], [place] [phone] Nickie, Sheyla [address] [place] [address] rescheduled appt mistakenly cancelled Social History Tobacco Use Types Packs/Day Years [...] encounter Miscellaneous Notes * Telephone Encounter - Clair Blancas - 05/17/2024 10:08 AM EST Patient mistakenly cancelled appt for 05/22 on interface. By the time he contacted office appt slothad already been taken. Rs appt or 07/03 at 10am. Will call back for cancellations at their convenience DR documented in this encounter Plan of Treatment Upcoming Encounters Date Type Department Care Team (Late st Contact Info) Description 07/16/2024 8:00 AM EST Office Visit [facility] ADULT D[facility] [address] [place] [address] Elizabeth Cordova, DMD 505 [place] [address] 07/23/2024 8:00 AM EDT Office Visit [facility] ADULT DENTAL [address] [place] [address] Sania Chopra, DDS 230 [place] [address] 11/27/2024 8:00 AM EDT Office Visit [facility] ADULT DENTAL [address] [place] [address] Dawn Bird documented as of this encounter Visit Diagnoses Not on filedocumented in this encounter Additional Health Concerns Assessment Noted Time PHQ-9 Depression Total Score: 0 09/29/19 24 9:32 AM EDT documented as of this encounter Care Teams Glove Wrapper Relationship Specialty Start Date End Date Arsh Gamez MD 230 [place] [address] PCP - General Internal Medicine 12/18/13 documented as of this encounter
--- OUTSIDE RECORDS SUMMARY | 2024-06-27 07:37 | XMS_ITS | Encounter Summary ---
Author Organization [employer] Address [address] [facility] 7t [place] [address] Care Team Providers Care Manager Of Program Name Role Phone Arsh Gamez MD Primary Care Provide r Reason for Visit * Reason Comments Med Refill Encounter Details Date Type Department Care Team ([facility] st Contact Info) Description 05/11/2024 Refill [facility] MEDICINE 230 [place], [place] [phone] Arsh Gamze MD [address] [place], [place] [phone] Need for prophylactic antibiotic Social History Tobacco Use Types Packs/Day Years [...] Description 07/16/2024 8:00 AM EST Office Visit [facility] ADULT DENTAL 505 [place] [address] Elizabeth Cordova, DMD 505 [place] [address] 07/23/2024 8:00 AM EDT Office Visit [facility] ADULT DENTAL [address] [place] [address] Sania Chopra, DDS [address] [place] [address] 11/27/2024 8:00 AM EDT Office Visit [facility] ADULT DENTAL [address] [place] [address] Dawn Bird documented as of this encounter Visit Diagnoses Diagnosis Need for prophylactic antibiotic Encounter for long-term (current) use of antibiotics documented in this encounter Additional Health Concerns Assessment Noted Time PHQ-9 Depression Total Score: 0 09/29/19 24 9:32 AM EDT documented as of this encounter Care Teams Manager Of Program Relationship Specialty Start Date End Date Arsh Gamez MD [address] [place] [address] PCP - General Internal Medicine 12/18/13 documented as of this encounter
--- OUTSIDE RECORDS SUMMARY | 2024-06-27 07:37 | XMS_ITS | Encounter Summary ---
Author Organization [employer] Address [address] [facility] [address] 7t [place] [address] Care Team Providers Care Casing Machine Operator Name Role Phone Arsh Gamez MD Primary Care Provide r Reason for Visit * Reason Comments Med Refill Encounter Details Date Type Department Care Team ([facility] st Contact Info) Description 06/24/2023 Refill [facility] CHC MED & PEDS [address] [place], [place] [phone] Arsh Gamez MD 230 [place] [address] Pain Social History Tobacco Use Types Packs/Day [...] Description 07/16/2024 8:00 AM EST Office Visit [facility] ADULT DENTAL 505 [place], [place] [phone] Elizabeth Cordova, DMD 505 [place] [address] 07/23/2024 8:00 AM EDT Office Visit [facility] ADULT DENTAL [address] [place] [address] Shaji-Sania Marin, DDS [address] [place] [address] 11/27/2024 8:00 AM EDT Office Visit [facility] ADULT DENTAL [address] [place] [address] Dawn Bird documented as of this encounter Visit Diagnoses Diagnosis Pain Generalized pain documented in this encounter Care Teams Casing Machine Operator Relationship Specialty Start Date End Date Arsh Gamez MD [address] [place] [address] PCP - General Internal Medicine 12/18/13 documented as of this encounter
--- OUTSIDE RECORDS SUMMARY | 2024-06-27 07:37 | XMS_ITS | Encounter Summary ---
Author Organization [employer] Address [address] [facility] 7t [place] [address] Care Team Providers Care Gas Cutting Machine Operator Name Role Phone Arsh Gamez MD Primary Care Provide r Reason for Visit * Reason Comments Med Refill Encounter Details Date Type Department Care Team ([facility] st Contact Info) Description 03/25/2024 Refill [facility] ADULT DENTAL [address] [place], [place] [phone] Rolando Denton, DDClaudia [address] [place] [address] Social History Tobacco Use Types Packs/Day Years [...] Telephone Encounter - Power Davis DMD - 03/26/2024 7:56 AM EST Approving, but needs appt for additional refills. documented in this encounter Plan of Treatment Upcoming Encounters Date Type Department Care Team (Late st Contact Info) Description 07/16/2024 8:00 AM EST Office Visit [facility] ADULT DENTAL [address] [place] [address] Elizabeth Cordova DMD [address] [place] [address] 07/23/2024 8:00 AM EDT Office Visit [facility] ADULT DENTAL [address] [place] [address] Girard-Marin, Sania, DDS [address] [place] [address] 11/27/2024 8:00 AM EDT Office Visit [facility] ADULT DENTAL [address] [place] [address] Dawn Bird documented as of this encounter Visit Diagnoses Not on filedocumented in this encounter Additional Health Concerns Assessment Noted Time PHQ-9 Depression Total Score: 0 09/29/19 9:32 AM EDT documented as of this encounter Care Teams Gas Cutting Machine Operator Relationship Specialty Start Date End Date Arsh Gamez MD 230 [place] [address] PCP - General Internal Medicine 12/18/13 documented as of this encounter
--- OUTSIDE RECORDS SUMMARY | 2024-06-27 07:37 | XMS_ITS | Encounter Summary ---
Author Organization [employer] [facility] Address [address] [facility] 7t [place] [address] Care Team Providers Care Public Records Researcher Name Role Phone Arsh Gamez MD Primary Care Provide r Reason for Visit * Reason Onset Date Comments Appointment Request 12/30/2023 Encounter Details Date Type Department Care Team ([facility] st Contact Info) Description 12/30/2023 Telephone [facility] MEDICINE [address] [place], [place] [phone] Arsh Gamez MD 230 [place], [place] [phone] Appointment Request Social History Tobacco Use Types Packs/Day Years Used Date Smoking Tobacco: Never Passive Smoke Exposure: Never Smokeless Tobacco: Never Depression Answer Date Recorded Patient Health Questionnaire-9 [...] Recorded Patient Health Questionnaire-2 Score 0 09/29/2023 Sex and Gender Information Value Date Recorded Sex Assigned at Male 03/15/2022 10:15 AM EDT Legal Sex Male 10:15 AM EDT Gender Identity Male 03/15/2022 10:15 AM EDT Sexual Orientation Straight 03/15/2022 10 :15 AM EDT documented as of this encounter Miscellaneous Notes * Telephone Encounter - Ko Holliday - 12/30/2023 10:13 AM EDT Tc from patient requesting to reschedule missed appt from 12/18 documented in this encounter Plan of Treatment Upcoming Encounters Date Type Department Care Team (Late st Contact Info) Description 07/16/2024 8:00 AM EST Office Visit [facility] ADULT DENTAL [address] [place] [address] Elizabeth Cordova, DMD 505 [place] [address] 07/23/2024 8:00 AM EDT Office Visit [facility] ADULT DENTAL [address] [place] [address] Sania Chopra, DDS [address] [place] [address] 11/27/2024 8:00 AM EDT Office Visit [facility] ADULT DENTAL [address] [place] [address] Dawn Bird documented as of this encounter Visit Diagnoses Not on filedocumented in this encounter Additional Health Concerns Assessment Noted Time PHQ-9 Depression Total Score: 0 09/29/19 24 9:32 AM EDT documented as of this encounter Care Teams Public Records Researcher Relationship Specialty Start Date End Date Arsh Gamez MD [address] [place] [address] PCP - General Internal Medicine 12/18/13 documented as of this encounter
--- OUTSIDE RECORDS SUMMARY | 2024-06-27 07:37 | XMS_ITS | Encounter Summary ---
Author Organization [email or web address] Address [address] [facility] [address] 7t [place] [address] Care Team Providers Care Enginehouse Brakeman Name Role Phone Arsh Gamez MD Primary Care Provide r Reason for Visit * Reason Comments Med Refill Encounter Details Date Type Department Care Team ([facility] st Contact Info) Description 12/28/2023 Refill [facility] [address] [place], [place] [phone] Felicita Beasley, ANP [address] [place], [place] [phone] Benign prostatic hyperplasia with urinary frequency Social History Tobacco Use Types Packs/Day Years [...] Description 07/16/2024 8:00 AM EST Office Visit [facility] [address] [place] [address] Elizabeth Cordova, DMD 505 [place] [address] 07/23/2024 8:00 AM EDT Office Visit [facility] [address] [place] [address] Shaji-MarinSania jose, DDS [address] [place] [address] 11/27/2024 8:00 AM EDT Office Visit [facility] [address] [place] [address] Dawn Bird documented as of this encounter Visit Diagnoses Diagnosis Benign prostatic hyperplasia with urinary frequency documented in this encounter Additional Health Concerns Assessment Noted Time PHQ-9 Depression Total Score: 0 09/29/19 24 9:32 AM EDT documented as of this encounter Care Teams Enginehouse Brakeman Relationship Specialty Start Date End Date Arsh Gamez MD [address] [place] [id number] PCP - General Internal Medicine 12/18/13 documented as of this encounter
--- OUTSIDE RECORDS SUMMARY | 2024-06-27 07:37 | XMS_ITS | Encounter Summary ---
Author Organization [employer] [facility] Address [address] [facility] 7t [place] [address] Care Team Providers Care Field Liability Generalist Name Role Phone Arsh Gamez MD Primary Care Provide r Encounter Details Date Type Department Care Team (Latest Contact Info) Description 07/09/[address] [facility] CONVERSIONS Dental, Provider, DDS Social History Tobacco Use Types Packs/Day Years Used Date Smoking Tobacco: Never Assessed Sex and Gender Information Value Date Recorded Sex Assigned at Male 03/15/2022 10:15 AM EDT Legal Sex Male 10:15 AM EDT Gender Identity Male 03/15/2022 10:15 AM EDT Sexual Orientation Straight 03/15/2022 10 :15 AM EDT documented as of this encounter Plan of Treatment Upcoming Encounters Date Type Department Care Team ( st Contact Info) Description 07/16/2024 8:00 AM EST Office Visit [facility] ADULT D[facility] [address] [place] [address] Elizabeth Cordova, DMD [address] [place] [address] 07/23/2024 8:00 AM EDT Office Visit [facility] ADULT D[facility]AL [address] [place] [address] Sania Chopra, DDS [address] [place] [address] 11/27/2024 8:00 AM EDT Office Visit [facility] ADULT DENTAL [address] [place], [place] [phone] Dawn Bird documented as of this encounter Visit Diagnoses Not on filedocumented in this encounter Care Teams Field Liability Generalist Relationship Specialty Start Date End Date Arsh Gamez MD [address] [place] [address] PCP - General Internal Medicine 12/18/13 documented as of this encounter
--- OUTSIDE RECORDS SUMMARY | 2024-06-27 07:37 | XMS_ITS | Encounter Summary ---
Author Organization [employer] Address [address] [facility] [address] 7[address] [place] [address] Care Team Providers Care Differential Specialist Name Role Phone Arsh Gamez MD Primary Care Provide r Encounter Details Date Type Department Care Team (Late st Contact Info) Description 06/05/2024 Orders Only [facility] External Provider, [facility] Social History Tobacco Use Types Packs/Day Years [...] housing situation today? I have timothysuresh granger 09/29/[address] you [...] Description 07/16/2024 8:00 AM EST Office Visit [facility]ULT [facility] [address] [place] [address] Elizabeth Cordova, DMD [address] [place] [address] 07/23/2024 8:00 AM EDT Office Visit [facility] ADULT [facility] [address] [place] [address] Girard-Marin, Sania, DDS [address] [place] [address] 11/27/2024 8:00 AM EDT Office Visit [facility] ADULT DENT[facility] [address] [place] [address] Dawn Bird documented as of this encounter Procedures Procedure Name Priority Date/Time Associated Diagnosis Comments US RENAL BI Routine 06/05/2024 11:34 AM EST documented in this encounter Results * US RENAL BI (06/05/2024 11:34 AM EST) Anatomical Region Laterality Modality Abdomen Ultrasound 06/05/2024 11:3 4 AM EST Narrative 06/05/2024 12:04 PM EST ? [facility] ?[address] ?[place] [address] ? Ultrasound Report ? Signed ? Patient: Machado,Jakob D ?MR#: [id number] ?? [id number] ? : 1960 ?Acct:[id number] ? Age/Sex: 64 / M ?ADM Date: 06/05/24 ? Loc: HO.US ? Attending Dr: Wyatt Mccoy MD ? Ordering Physician: Wyatt Mccoy MD ?? Date of Service: 06/05/24 ?? Procedure(s): US renal BI ?? Accession Number(s): [id number] ? cc: Wyatt Mccoy MD; Arsh Torres MD ? EXAMINATION: ?? US RETROPERITONEAL LIMITED (RENAL ONLY) ? CLINICAL INFORMATION: ?? Essential hypertension.. ? COMPARISON: ?? Renal ultrasound 09/13/2023. ?? Correlation made with CT abdomen and pelvis with contrast 09/12/2023. ? TECHNIQUE: ?? Real-time imaging of the kidneys. ? FINDINGS: ? RIGHT KIDNEY: 10.2 x 5.1 x 3.8 cm (SAG x AP x TRV). The kidney is ?? normal in size, contour, and echogenicity. Renal cortical thickness is ?? normal. No calculi or focal parenchymal lesions. No hydronephrosis. ? LEFT KIDNEY: 10.2 x 5.2 x 5.3 cm (SAG x AP x TRV). The kidney is normal ?? in size, contour, and echogenicity. Renal cortical thickness is normal. ?? No calculi or suspicious focal parenchymal lesions. No hydronephrosis. ?? There is a lower pole simple cyst measuring 1.0 cm. ? US/US renal BI ?? IMPRESSION: ?? 1. Aside from a simple 1.0 cm left lower pole cyst, normal kidneys. ? Electronically signed by: ??Jareth Galindo MD ??06/05/2024 12:01 PM EST RP ? Dictated By: ?Jareth Galindo MD ? Signed By: ?<Electronically signed by Jareth Galindo MD in OV> ?06/05/24 1201 ? DD/ 1134 ? TD/TT: 06/05/24 1145 ? Cleaning Crew Member: ? Procedure Note Joel Stewart - 06/05/[address] [address] Ultrasound Report Signed Patient: Jakob Machado [facility]#: [id number] : 1960Acct:[id number] Age/Sex: 64 / MADM Date: 06/05/24 Loc: HO.US Attending Dr: Wyatt Mccoy MD Ordering Physician: Wyatt Mccoy MD Date of Service: 06/05/24 Procedure(s): US renal BI Accession Number(s): [id number] cc: Wyatt Mccoy MD; Arsh Torres MD EXAMINATION: US RETROPERITONEAL LIMITED (RENAL ONLY) CLINICAL INFORMATION: Essential hypertension.. COMPARISON: Renal ultrasound 09/13/2023. Correlation made with CT abdomen and pelvis with contrast 09/12/2023. TECHNIQUE: Real-time imaging of the kidneys. FINDINGS: RIGHT KIDNEY: 10.2 x 5.1 x 3.8 cm (SAG x AP x TRV). The kidney is normal in size, contour, and echogenicity. Renal cortical thickness is normal. No calculi or focal parenchymal lesions. No hydronephrosis. LEFT KIDNEY: 10.2 x 5.2 x 5.3 cm (SAG x AP x TRV). The kidney is normal in size, contour, and echogenicity. Renal cortical thickness is normal. No calculi or suspicious focal parenchymal lesions. No hydronephrosis. There is a lower pole simple cyst measuring 1.0 cm. US/US renal BI IMPRESSION: 1. Aside from a simple 1.0 cm left lower pole cyst, normal kidneys. Electronically signed by: Jareth Galindo MD 06/05/2024 12:01 PM [facility] Dictated By: Jareth Galindo MD Signed By: <Electronically signed by Jareth Galindo MD in OV> 06/05/24 1201 DD/ 1134 TD/TT: 06/05/24 1145 Cleaning Crew Member: [facility] External Provider IMG US PROCEDURES Edited Result - Final documented in this encounter Visit Diagnoses Not on filedocumented in this encounter Additional Health Concerns Assessment Noted Time PHQ-9 Depression Total Score: 0 05/16/20 24 9:32 AM EDT documented as of this encounter Care Teams Differential Specialist Relationship Specialty Start Date End Date Arsh Gamez MD [address] [place] [phone] PCP - General Internal Medicine 12/18/13 documented as of this encounter
--- OUTSIDE RECORDS SUMMARY | 2024-06-27 07:37 | XMS_ITS | Encounter Summary ---
Author Organization [employer] [facility] Address [address] [facility] 7t [place] [address] Care Team Providers Care Intake Rn Name Role Phone Arsh Gamez MD Primary Care Provide r Reason for Visit * Reason Onset Date Comments Notes 09/02/2022 Encounter Details Date Type Department Care Team ([facility] st Contact Info) Description 09/02/2022 Telephone [facility] [address] [place], [place] [phone] Arsh Gamez MD [address] [place], [place] [phone] Notes Social History Tobacco Use Types Packs/Day Years Used Date Smoking Tobacco: Never Smokeless Tobacco: Never Depression Answer Date Recorded Patient Health Questionnaire-9 Score 0 09/29/2023 Patient Health Questionnaire-9 Score 0 09/29/2023 Last PHQ-9: Questionnaire Data Not on file 0 09/29/2023 Housing Stability Answer Date Recorded What is your housing situation today? I have timothy granegr 09/29/[address] you li [...] Orientation Straight 03/15/2022 10 :15 AM EDT COVID-19 Exposure Response Date Recorded In the last 10 days, have yo u been in contact with someone who was confirmed or suspected to have Coronavirus/COVID-19? No / Unsure 08/27/2022 9:30 AM EDT documented as of this encounter Miscellaneous Notes * Telephone Encounter - Cami Martin RN - 09/02/2022 9:23 AM EDT Call to [facility] to obtain fax number. Pre-op visit notes faxed to ortho office. Confirmation page received * Telephone Encounter - Rivka Cabello - 09/02/2022 8:34 AM EDT Tc from pt requesting for PRE-OP notes to please be faxed to orthopedics office, [facility], states they have not received notes and will need before next week. Please contact at [phone] Turkmen documented in this encounter Plan of Treatment Upcoming Encounters Date Type Department Care Team (Late st Contact Info) Description 07/16/2024 8:00 AM EST Office Visit [facility] [address] [place] [address] Elizabeth Cordova, DMD [address] [place] [address] 07/23/2024 8:00 AM EDT Office Visit [facility] ADULT [facility] [address] [place] [address] Shaji-Sania Marin, DDS [address] [place] [address] 11/27/2024 8:00 AM EDT Office Visit [facility]ULT [facility] [address] [place] [address] Dawn Bidr documented as of this encounter Visit Diagnoses Not on filedocumented in this encounter Care Teams Intake Rn Relationship Specialty Start Date End Date Arsh Gamez MD [address] [place] [address] PCP - General Internal Medicine 12/18/13 documented as of this encounter
--- OUTSIDE RECORDS SUMMARY | 2024-06-27 07:37 | XMS_ITS | Encounter Summary ---
Author Organization [employer] Address [address] [facility] [address] 7t [place] [address] Care Team Providers Care Mobile Development Manager Name Role Phone Arsh Gamez MD Primary Care Provide r Reason for Visit * Reason Comments Routine Cleaning Dental Exam Encounter Details Date Type Department Care Team (Late st Contact Info) Description 05/29/2024 8:00 AM EST Office Visit [facility] ADULT DENTAL [address] [place] [address] Dawn Bird Dental plaque (Primary Dx); Dental calculus Social History Tobacco Use Types Packs/Day Years [...] AM EDT documented as of this encounter Last Filed Vital Signs Vital Sign Reading Time Taken Comments Blood Pressure 138/82 05/29/2024 8:00 AM EST Pulse - - Temperature - - Respiratory Rate - - Oxygen Saturation - - Inhaled Oxygen Concentration - - Weight - - Height - - Body Mass Index - - documented in this encounter Progress Notes * Dawn Bird - 05/29/2024 8:00 AM EST Patient ID: aJkob Machado is a 64 y.o. male. Time Out: Timeout Date: 05/29/24, Timeout Time: 0802 (prophy and exam adult dental) Location: [facility] Tooth: Maxilla and Mandible Procedure: Exam, X-rays, and Prophylaxis Verified the above with patient, clinical assistant professor, and provider. Confirmed via patient's chart, intraorally and by radiographs. Mucking Machine Operator: not applicable Medical Hx: Vitals: Blood pressure 138/82. Medications, Med Hx reviewed with patient and updated in chart. Treatment Provided Dental procedures in this visit D1110 - PROPHYLAXIS - ADULT Full (Completed) Service provider: Dawn Bird Billing provider: Sania Chopra DDS D1330 - ORAL HYGIENE INSTRUCTIONS (Completed) Service provider: Dawn Bird Billing provider: Sania Chopra DDS [id number] - CASE PRESENTATION, DETAILED AND EXTENSIVE TREATMENT PLANNING (Completed) Service provider: Dawn Bird Billing provider: Sania Chopra DDS D1330 - ORAL HYGIENE INSTRUCTIONS (Completed) Service provider: Dawn Bird Billing provider: Sania Chopra DDS [id number] - INTRAORAL - PERIAPICAL FIRST RADIOGRAPHIC IMAGE (Completed) Service provider: Dawn Bird Billing provider: Sania Chopra DDS Instruments Used: Ultrasonic Scalers, Hand Scalers, and Prophy angle Fluoride: N/A Oral Cancer Screening: No lesions Head/Neck Exam: No Lesions Calculus: Moderate and Generalized Plaque: Moderate and Generalized Stain: Heavy and Generalized Bleeding: Moderate and Generalized Gingiva: Edematous and Erythematous OH: Poor Perio Chart: Not Completed - not due, will update at next visit, previously noted generalized 1-4 mm pocketing Exam with Dr. Marin - Yancyema noted Oral hygiene instructions provided to patient including brushing technique and flossing. Recommendations: [place] two times daily, modified layton technique, Floss daily, Electric toothbrush, Soft bristle toothbrush, [place] Tongue, Anti-sensitivity toothpaste Recall Frequency: 6 mo NV: 6mrc, exam, bwx Hygienist: Dawn Bird RDH Cosigned by Sania Chopra DDS at 05/29/2024 10:11 AM EST Associated attestation - Sania Chopra DDS - 05/29/2024 10:11 AM EST I have reviewed the documentation and dental procedures made by the rendering provider, Dawn Bird RDH , and approve their chart entries for this visit. Sania Chopra DDS * Sania Chopra DDS - 05/29/2024 8:00 AM EST Dental procedures in this visit D1110 - PROPHYLAXIS - ADULT Full (Completed) Service provider: Dawn Bird Billing provider: Sania Chopra DDS D1330 - ORAL HYGIENE INSTRUCTIONS (Completed) Service provider: Dawn Bird Billing provider: Sania Chopra DDS D9450 - CASE PRESENTATION, DETAILED AND EXTENSIVE TREATMENT PLANNING (Completed) Service provider: Dawn Bird Billing provider: Sania Chopra DDS D1330 - ORAL HYGIENE INSTRUCTIONS (Completed) Service provider: Dawn Bird Billing provider: Sania Chopra DDS D0220 - INTRAORAL - PERIAPICAL FIRST RADIOGRAPHIC IMAGE (Completed) Service provider: Dawn Bird Billing provider: Sania Chopra DDS D0120 - PERIODIC ORAL EVALUATION - ESTABLISHED PATIENT (Completed) Service provider: Sania Chopra DDS Billing provider: Sania Chopra DDS Patient ID: Jakob Machado is a 64 y.o. male. Time Out: Timeout Date: 05/29/24, Timeout Time: 0802 (prophy and exam adult dental) Location: [facility] Tooth: Maxilla and Mandible Procedure: Exam, X-rays, and Prophylaxis Verified the above with patient, clinical assistant professor, and provider. Confirmed via patient's chart, intraorally and by radiographs. Mucking Machine Operator: not applicable Chief Complaint Patient presents with Routine Cleaning Dental Exam Medical Hx: Vitals: Blood pressure 138/82. Past Medical History: Diagnosis Date Back pain Bleeding gums Diabetes mellitus ([facility]) GERD (gastroesophageal reflux disease) Hypertension Medications: Outpatient Encounter Medications as of 05/29/2024 Medication Sig Dispense Refill acetaminophen (Tylenol) 500 MG tablet Take 1 tablet (500 mg) by mouth every 6 (six) hours if neededfor mild pain for up to 20 doses. 20 tablet 0 amLODIPine (Norvasc) 5 MG tablet TOME MARCELINA TABLETA TODOS LOS D amoxicillin (Amoxil) 500 MG capsule Take 4 caps 1 hour prior dental procedure 12 capsule 0 finasteride (Proscar) 5 MG tablet TAKE 1 TABLET (5 MG) BY MOUTH ONCE PER DAY. 90 tablet 1 fluticasone (Flonase) 50 MCG/ACT nasal spray ADMINISTER 1 TO SPRAYS INTO EACH NOSTRIL IN THE MORNING. SHAKE GENTLY. BEFORE FIRST USE, PRIME PUMP. AFTER USE, CLEAN TIP AND REPLACE CAP. 48 mL 0 hydrALAZINE (Apresoline) 50 MG tablet Take 1.5 tablets by mouth every 8 (eight) hours. lisinopril 40 MG tablet TOME MARCELINA TABLETA TODOS LOS MCKAY 90 tablet 3 metFORMIN XR (Glucophage-XR) 500 MG 24 hr tablet TOME MARCELINA TABLETA TODOS LOS MCKAY GAMING TABLE OPERATOR 90 tablet 3 metoprolol succinate XL (Toprol-XL) 25 MG 24 hr tablet TAKE 1 TABLET BY MOUTH EVERY DAY 90 tablet 1 omeprazole (PriLOSEC) [address] capsule TOME MARCELINA CAPSULA DOS VECES AL JOHN PAUL BEFORE A MEAL 180 capsule 3 tamsulosin (Flomax) 0.4 MG 24 hr capsule Take 1 capsule by mouth at bedtime. glucose blood (FREESTYLE LITE) test strip TEST BLOOD SUGAR ONCE DAILY 100 strip 3 [] lidocaine (Lidoderm) 5 % patch Apply 1 patch topically in the morning. Remove & discard patch within 12 hours or as directed by MD. 30 patch 2 No facility-administered encounter medications on file as of 05/29/2024. Objective HPI Soft Tissue Exam No findings documented this visit Head and Neck Exam: Lymph Nodes, Lips, Palate, Buccal Mucosa, Floor of Mouth, Tongue, Tonsils, Alveolar Ridges, Oropharynx, Salivary Ducts, and Vestibules - no significant findings Details: oligodontia OCS: negative Dental Exam Radiographic Interpretation: Associated radiographs for today's visit were reviewed and finding(s) were discussed with the patient. Findings include: symptomatic LR side molars- referred for consult for ext #32 with oral surgeon. No major findings observed on the amalgam restorations (integral). Pt refers pain when biting down onboth teeth. Slightly tilted to mesial in inward #31- possible pocket ~ 4 mm interproximal. Aspect of impacted #32- impinging over #31. After ext completed- reassessment of #30 and #31 will be completed. Hard Tissue Exam: No decay Reference tooth chart for additional findings. Oral Cancer Risk: Low Risk Oral Hygiene Instructions: [place] two times daily, modified layton technique, Floss daily, Soft bristle toothbrush, [place] Tongue Caries Risk Assessment: Low- no risk factor Assessment/Plan Oral Surgeon Consult - ext #32 Patient tolerated procedure well, all questions answered and expressed understanding. Dismissed in good condition. NV: Consult- Ext #32 Information Systems Security Developer: Dawn Bird Dentist: Sania Chopra DDS documented in this encounter Plan of Treatment Upcoming Encounters Date Type Department Care Team (Late st Contact Info) Description 07/16/2024 8:00 AM EST Office Visit [facility] ADULT DENTAL [address] [place], [place] [phone] Elizabeth Cordova, DMD [address] [place] [address] 07/23/2024 8:00 AM EDT Office Visit [facility] ADULT DENTAL [address] [place] [address] Sania Chopra DDS [address] [place] [address] 11/27/2024 8:00 AM EDT Office Visit [facility] ADULT DENTAL [address] [place] [address] Dawn Bird documented as of this encounter Procedures Procedure Name Priority Date/Time Associated Diagnosis Comments Full PROPHYLAXIS - ADULT Routine 025 8:00 AM EST Dental plaque Dental calculus PERIODIC ORAL EVALUATION - ESTABLISHED PATIENT Routine 05/29/2024 8:00 AM EST ORAL HYGIENE INSTRUCTIONS Routine 05/29/2024 8:00 AM EST ORAL HYGIENE INSTRUCTIONS Routine 05/29/2024 8:00 AM EST Dental plaque Dental calculus INTRAORAL - PERIAPICAL FIRST RADIOGRAPHIC IMAGE Routine 05/29/2024 8:00 AM EST [employer] GENERAL SERVICES - PROFESSIONAL VISITS - CASE PRESENTATION, SUBSEQUENT TO DETAILED AND EXTENSIVE TREATMENT PLANNING Routine 05/29/2024 8:00 AM EST documented in this encounter Visit Diagnoses Diagnosis Dental plaque- Primary Accretions on teeth Dental calculus Accretions on teeth documented in this encounter Additional Health Concerns Assessment Noted Time PHQ-9 Depression Total Score: 0 09/29/19 24 9:32 AM EDT documented as of this encounter Care Teams Mobile Development Manager Relationship Specialty Start Date End Date Arsh Gamez MD [address] [place] [address] PCP - General Internal Medicine 12/18/13 documented as of this encounter
--- OUTSIDE RECORDS SUMMARY | 2024-06-27 07:37 | XMS_ITS | Encounter Summary ---
Author Organization [facility] Address [address] [place] [address] 7t [place] [address] Care Team Providers Care Polishing Machine Operator Name Role Phone Arsh Gamez MD Primary Care Provide r Encounter Details Date Type Department Care Team (Late Contact Info) Description 09/23/2022 Abstract [facility] MEDICINE [address] [place], [place] [phone] Arsh Gamez MD [address] [place] [address] Social History Tobacco Use Types Packs/Day Years Used Date Smoking Tobacco: Never Smokeless Tobacco: Never Depression Answer Date Recorded Patient Health Questionnaire-2 [...] Description 07/16/2024 8:00 AM EST Office Visit [facility]ULT [facility] [address] [place], [place] [phone] Elizabeth Cordova, DMD [address] [place], [place] [phone] 07/23/2024 8:00 AM EDT Office Visit [facility] ADULT DENTAL [address] [place] [address] Shaji-Sania Marin, DDS [address] [place] [address] 11/27/2024 8:00 AM EDT Office Visit [facility] ADULT DENTAL [address] [place] [address] Dawn Bird documented as of this encounter Visit Diagnoses Not on filedocumented in this encounter Care Teams Polishing Machine Operator Relationship Specialty Start Date End Date Arsh Gamez MD [address] [place] [address] PCP - General Internal Medicine 12/18/13 documented as of this encounter
--- OUTSIDE RECORDS SUMMARY | 2024-06-27 07:37 | XMS_ITS | Encounter Summary ---
Author Organization [address] Address 75 [facility] 7t [place] [address] Care Team Providers Care Neurophysiologist Name Role Phone Arsh Gamez MD Primary Care Provide r Reason for Visit * Reason Onset Date Comments Hospital Follow-up 09/15/2023 Encounter Details Date Type Department Care Team ([facility] st Contact Info) Description 09/15/2023 Telephone [facility] MEDICINE [address] [place], [place] [phone] Arsh Gamez MD [address] [place], [place] [phone] Hospital Follow-up Social History Tobacco Use Types Packs/Day Years [...] encounter Miscellaneous Notes * Telephone Encounter - Rosy Sparks RN - 09/15/2023 4:14 PM EDT Please update HDF log with below appointment details. [facility] discharge summary already on file in [facility]. * Telephone Encounter - Rosy Sparks RN - 09/15/2023 3:58 PM EDT Call to Jakob Machado, reports having been admitted due to having weak urinary stream and fever.Pt has appt on Tuesday with Urology 09/21/23 and has nephrology appt next week as well just not sure of date. Pt states was sent home with indwelling Lopez for 10 days. Per pt has picked up all meds and understands need to hold lisinopril and meloxicam. Pt given appt for HDF in two weeks with team provider. Reviewed home care advise, ER precautions and reasons to call back. Protocol Used: Post-Hospitalization Follow-up Call (Adult) Protocol-Based Disposition: See in Office or Video Visit Today or Tomorrow Override (Final) Disposition: See in Office or Video Visit within 2 Weeks Override Reason: Organization policy Future Appointments Date Time Provider Department Center 09/29/2023 9:30 AM Manju Anderson MD MEDICINE [facility] Positive Triage Question: * Patient wants to be seen * All higher-acuity triage questions were negative Care Advice Discussed: * Continue Treatment * Pain Medicines * Reasons To Call Back - Fever occurs - You become worse * Telephone Encounter - Rivka Cabello - 09/15/2023 3:54 PM EDT Tc from pt requesting a HDF appt. Hospital: [facility] Date of admission: 09/12/23 Discharge date: 09/15/23 Diagnosed: prostate infection , states still has pain and has tubes still. Please contact at [phone] [place] documented in this encounter Plan of Treatment Upcoming Encounters Date Type Department Care Team ([facility] st Contact Info) Description 07/16/2024 8:00 AM EST Office Visit [facility] ADULT DENTAL [address] [place] [address] Elizabeth Cordova, DMD [address] [place] [address] 07/23/2024 8:00 AM EDT Office Visit [facility] ADULT DENTAL [address] [place] [address] Shaji-MarinSania jose, DDS [address] [place] [address] 11/27/2024 8:00 AM EDT Office Visit [facility] ADULT DENTAL [address] [place] [address] Dawn Bird documented as of this encounter Visit Diagnoses Not on filedocumented in this encounter Care Teams Neurophysiologist Relationship Specialty Start Date End Date Arsh Gamez MD [address] [place] [phone] PCP - General Internal Medicine 12/18/13 documented as of this encounter
--- OUTSIDE RECORDS SUMMARY | 2024-06-27 07:37 | XMS_ITS | Encounter Summary ---
Author Organization [facility] Address [address] [facility] [address] [place] [address] Phone Care Team Providers Care Yarn Sizer Name Role Phone Arsh Sharif MD Primary Care Provider Encounter Details Date Type Department Care Team (Late st Contact Info) Description 06/29/2022 Telephone [facility] [address] [place] [address] Sarah Phelps Social History Tobacco Use Types Packs/Day Years Used Date Smoking Tobacco: Never Smokeless Tobacco: Never Alcohol Use Standard Drinks/Week Comments Yes 0 (1 standard drink = 0.6 oz pur e alcohol) Sex and Gender Information Value Date Recorded Sex Assigned at Not on file Legal Sex Male 5:04 PM EST Gender Identity Not on file Sexual Orientation Not on file documented as of this encounter Miscellaneous Notes * Telephone Encounter - Sarah Holliday - 07/01/2022 10:15 AM EST Pls advise if okay to double book pt * Telephone Encounter - Sarah Phelps - 06/29/2022 9:58 AM EST PT called because he wanted a sooner appointment than 09/08/22. He says that he needs clearance from our office to have surgery in September for a knee replacement. PT says that the hospital performing [facility] in [place] needs the clearance two months before his surgery date in September. Surgery is for his right knee. documented in this encounter Plan of Treatment Not on file documented as of this encounter Visit Diagnoses Not on filedocumented in this encounter Care Teams Yarn Sizer Relationship Specialty Start Date End Date Arsh Sharif MD [address] [place] [phone] PCP - General Internal Medicine 08/24/21 documented as of this encounter
--- OUTSIDE RECORDS SUMMARY | 2024-06-27 07:38 | XMS_ITS | Encounter Summary ---
Author Organization [facility] Address 75 [facility] 7t [place] [address] Care Team Providers Care Fruit Pitter Name Role Phone Arsh Gamez MD Primary Care Provide r Encounter Details Date Type Department Care Team (Late st Contact Info) Description 06/14/2022 Orders Only [facility] [address] [place], [place] [phone] Sarah Pineda LPN Social History Tobacco Use Types Packs/Day Years Used Date Smoking Tobacco: Never Assessed Depression Answer Date Recorded Patient Health Questionnaire-2 [...] suspected to have Coronavirus/COVID-19? No / Unsure 06/17/2022 8:33 AM EST documented as of this encounter Plan of Treatment Upcoming Encounters Date Type Department Care Team (Late st Contact Info) Description 07/16/2024 8:00 AM EST Office Visit [facility] ADULT DENTAL [address] [place] [address] Elizabeth Cordova DMD 505 [place] [address] 07/23/2024 8:00 AM EDT Office Visit [facility] ADULT DENTAL 230 [facility] [place] [address] Girard-MarinSania jose, DDS [address] [facility] [place] [address] 11/27/2024 8:00 AM EDT Office Visit [facility] ADULT D[facility]AL [address] [facility] [place] [address] Dawn Bird documented as of this encounter Procedures Procedure Name Priority Date/Time Associated Diagnosis Comments ALBUMIN, RANDOM URINE W/CREATININE Routine 06/17/2022 10:30 AM EST KAPPA/LAMBDA LIGHT CHAINS FREE WITH RATIO, SERUM Routine 06/17/2022 10:30 AM EST PROTEIN, TOTAL AND PROTEIN ELECTROPHORESIS, RANDOM URINE Routine 06/17/2022 10:15 AM EST IMMUNOFIXATION, URINE Routine 06/17/2022 10:15 AM EST HEPATITIS C ANTIBODY REFLEX Routine 06/17/2022 10:14 AM EST PROTEIN ELECTROPHORESIS AND KAPPA/LAMBDA LIGHT CHAINS, SERUM Routine 06/17/2022 10:14 AM EST LIPID PANEL WITH REFLEX TO DIRECT LDL Routine 06/17/2022 10:14 AM EST HEPATITIS C VIRAL RNA, QUANTITATIVE, REAL-TIME PCR Routine 06/17/2022 10:14 AM EST CBC Routine 06/17/2022 10:14 AM EST IMMUNOFIXATION, SERUM Routine 06/17/2022 10:14 AM EST BASIC METABOLIC PANEL Routine 06/17/2022 10:14 AM EST documented in this encounter Results * [place]/Lambda Light Chains, Free with Ratio (06/17/2022 10:30 AM EST) [place] Light Chain, Free, Serum 303 176 - 443 mg/dL [facility] Lambda Light Chain, Free, Serum 163 91 - 240 mg/dL [facility] [place]/Lambda Light Chains Free With Ratio, Serum 1.86 1.29 - 2.55 [facility] Comment:This assay provides a measurement of the total kappa and thetotal lambda light chains, ie., the amount of free(unattached) light chain in circulation and the amount oflight chain linked to heavy chain in intact immunoglobulinmolecules. Assays for serum free light chain only, kappa andlambda with ratio, may be more useful in evaluating andmanaging light chain gammopathies including those associatedwith myeloma, lymphoproliferative disorders, andamyloidosis.THIS TEST WAS PERFORMED AT:[employer] [id number] [place] [address]GMBKZDELMA SINGER MD,PHD,ADRIENNE 06/17/2022 10:3 0 AM EST 06/18/2022 4:58 PM EST [facility] External Provider LAB BLO OD ORDERABLES Final Result [facility] [address] [place] [address] [phone] * Albumin, Random Urine W/Creatinine (06/17/2022 10:30 AM EST) Creatinine, Urine 123.67 mg/dL [facility] Microalbumin Urine 42.0 mg/L [facility] Microalbum Creatinine Ratio Ur 33.9 ug/mg cr [facility] Comment:Albumin/Creatinine R atio Reference Ranges: Normal: < 30 ug/mg creatinine Microalbuminuria: 30 - 300 ug/mg creatinineClinical Albuminuria: > 300 ug/mg creatinine 06/17/2022 10:3 0 AM EST 06/17/2022 11:33 AM EST [facility] External Provider LAB URI NE ORDERABLES Final Result [facility] [address] [place] [address] [phone] * Protein Electrophoresis and Total Protein, Random Urine (06/17/2022 10:15 AM EST) PEU-Random Urine Creatinine 121 20 - 320 mg/dL [facility] PEU-Random Urine Protein 14 5 - 25 mg/dL [facility] PEU-[place]. Prot/Creat Ratio 116 25 - 148 mg/g creat [facility] PEU-Random Urine Albumin 100 % [facility] PEU-Random Urine A1 Globulin 0 % [facility] PEU-Random Urine A2 Globulin 0 % [facility] PEU-Random Urine Beta Globulin 0 % [facility] PEU-Random Ur. Gamma Globulin 0 % [facility] PEU Ran-Abn Protein Band 1 TNP [facility] PEU Ran-Abn Protein Band 2 TNP [facility] PEU Ran-Abn Protein Band 3 TNP [facility] PEU-Random Urine Interpret. SEE NOTE [facility] Comment:Normal PatternTHIS T EST WAS PERFORMED AT:[employer] [place] [address] (1)[place] [address]YDRFNTERRY JASON MD Protein/Creatini ne Ratio 0.116 0.025 - 0.148 [facility] Comment:Result Units: mg/mg creat 06/17/2022 10:1 5 AM EST 06/18/2022 3:03 PM EST us [facility] External Provider LAB URI NE ORDERABLES Final Result [facility] [address] [place] [address] [phone] * Immuniofixation, Urine (06/17/2022 10:15 AM EST) DELVIN Interpretation [facility] Comment:No monoclonal protei ns detected.THIS TEST WAS PERFORMED AT:[employer] [place] [address] (NL1)[place] [address]WNFKHTERRY JASON MD 06/17/2022 10:1 5 AM EST 06/18/2022 3:03 PM EST [facility] External Provider LAB URI NE ORDERABLES Final Result Performing Organization Address [facility]/ZIP Co de Phone Number [facility] [address] [place] [phone] * Hepatitis C Viral RNA, Quantitative, Real-Time PC (06/17/2022 10:14 AM EST) Hepatitis C Viral Load <15 NOT DETECTED NOT DETECTED IU/mL [facility] HCV Log PCR <1.18 NOT DETECTED NOT DETECTED Log IU/mL [facility] Comment:This test was perfor med using Real-Time Polymerase ChainReaction.Reportable Range: 15 IU/mL to 100,000,000 IU/mL(1.18 Log IU/mL to 8.00 Log IU/mL).The analytical performance characteristics of thisassay have been determined by [employer].The modifications have not been cleared or approved bythe FDA. This assay has been validated pursuant to theCLIA regulations and is used for clinical purposes.For more information on this test, go to:http://education.[employer]/faq/SBB78r8(This link is being provided for informational/educational purposes only.)THIS TEST WAS PERFORMED AT:[employer] [address] ([facility])[place] [address]ORRGATERRY JASON MD 06/17/2022 10:1 4 AM EST 06/17/2022 10:14 AM EST [facility] External Provider LAB BLO OD ORDERABLES Final Result Performing Organization Address [facility]/ZIP Co de Phone Number [facility] [address] [place] [phone] * Protein Electrophoresis and [place]/Lambda Light Chains (06/17/2022 10:14 AM EST) Prot Elec - Total Protein 7.2 6.1 - 8.1 g/dL [facility] Prot Elec - Albumin 4.2 3.8 - 4.8 g/dL [facility] Prot Elec - Alpha1 0.3 0.2 - 0.3 g/dL [facility] Prot Elec - Alpha2 0.6 0.5 - 0.9 g/dL [facility] Prot Elec - Beta 1 0.5 0.4 - 0.6 g/dL [facility] Prot Elec - Beta 2 0.4 0.2 - 0.5 g/dL [facility] Prot Elec - Gamma 1.2 0.8 - 1.7 g/dL [facility] PES - Abn Protein Band 1 TNP [facility] PES-Abn Protein Band 2 [facility] PES-Abn Protein Band 3 [facility] Prot Elec - Interpretation SEE NOTE [facility] Comment:Normal Electrophoret ic PatternTHIS TEST WAS PERFORMED AT:[employer] [place] [address] (1)[place] [address]NKWJFJULIET JASON MD 06/17/2022 10:1 4 AM EST 06/17/2022 10:14 AM EST [facility] External Provider LAB BLO OD ORDERABLES Final Result Performing Organization Address City/State/[facility] Co de Phone Number [facility] [address] [place] [phone] * (ABNORMAL) Immunofixation, Serum (06/17/2022 10:14 AM EST) IMMUNOGLOBULIN G 1189 600 - 1540 mg/dL [facility] IMMUNOGLOBULIN A 355(A) 70 - 320 mg/dL [facility] Immunoglobulin M 145 50 - 300 mg/dL [facility] Comment:THIS TEST WAS PERFOR MED AT:[employer] [place] [address] ([facility])[place] [address]CWWKPJULIET JASON MD Immunofixation Result SEE NOTE [facility] Comment:Normal pattern. No m onoclonal proteins detected. 06/17/2022 10:1 4 AM EST 06/18/2022 2:59 PM EST [facility] External Provider LAB BLO OD ORDERABLES Final Result Performing Organization Address [facility] Co de Phone Number [facility] [address] [place] [phone] * Hepatitis C Antibody Reflex (06/17/2022 10:14 AM EST) Hepatitis C Antibody Nonreactive Nonreactive [facility] Comment:Antibodies to HCV no t detected; does not exclude early acuteHCV infection. 06/17/2022 10:1 4 AM EST 06/17/2022 10:14 AM EST [facility] External Provider LAB BLO OD ORDERABLES Final Result Performing Organization Address [facility] Co de Phone Number [facility] [address] [place] [phone] * Lipid Panel with Reflex to Direct LDL (06/17/2022 10:14 AM EST) Triglycerides 154 mg/dL [facility] Comment:Desirable Triglyceri de: less than 150 mg/dLBorderline High Triglyceride 150-199 mg/dLHigh Triglyceride: 200-499 mg/dLVery High Triglyceride: greater than or equal to 5OO mg/dL Cholesterol 176 mg/dL [facility] Comment:Desirable Cholestero l: less than 200 mg/dLBorderline High Cholesterol: 200-239 mg/dLHigh Cholesterol: greater than 239 mg/dL LDL Cholesterol Calculated 119 mg/dl [facility] Comment:Desirable LDL: less than 100 mg/dLNear Optimal/Above Optimal LDL: 110- 129 mg/dLBorderline High LDL: 130-159 mg/dLHigh LDL: 160-189 mg/dLVery High LDL: greater than or equal to 190 mg/dL HDL Cholesterol 27 mg/dL [facility] Comment:Desirable HDL: great er than 40 mg/dL Note: This HDL assay may give artificially low results in patients with liver disease. 06/17/2022 10:1 4 AM EST 06/17/2022 10:14 AM EST [facility] External Provider LAB BLO OD ORDERABLES Final Result Performing Organization Address [facility] Co de Phone Number [facility] [address] [place] [phone] * (ABNORMAL) Basic Metabolic Panel (06/17/2022 10:14 AM EST) Sodium 139 135 - 145 mmol/L [facility] Potassium 4.1 3.3 - 5.1 mmol/L [facility] Chloride 107 96 - 108 mmol/L [facility] Carbon Dioxide 25 22 - 29 mmol/L [facility] Anion Gap 11(L) 12 - 20 [facility] Urea Nitrogen (BUN) 19(H) 9 - 16 mg/dL [facility] Creatinine, Serum 1.20 0.5 - 1.4 mg/dL [facility] Estimated Glomerular Filt Rate >60 [facility] Comment:NOTE: For -Am erican individuals, multiply the result by 1.210.Chronic Kidney Disease: Estimated GFR < 60 mL/min/1.16l6Mhnjnw Kidney Disease: Estimated GFR < 15 mL/min/1.73m2 Glucose 93 60 - 115 mg/dL [facility] Calcium 9.2 8.4 - 10.2 mg/dL [facility] 06/17/2022 10:1 4 AM EST 06/17/2022 10:14 AM EST [facility] External Provider LAB BLO OD ORDERABLES Final Result Performing Organization Address [facility]/ZIP Co de Phone Number [facility] [address] [place] [phone] * CBC (06/17/2022 10:14 AM EST) White Blood Count 5.9 4.8 - 10.8 X10*3/uL [facility] Red Blood Count 5.41 4.60 - 5.80 X10*6/uL [facility] Hemoglobin 15.7 14.0 - 18.0 g/dl [facility] Hematocrit 45.5 42.0 - 52.0 % [facility] Mean Corpuscular Volume 84.1 80.0 - 98.0 fL [facility] Mean Corpuscular Hemoglobin 29.0 27.0 - 33.0 pg [facility] Mean Corpuscular HGB Conc 34.5 31.0 - 36.0 g/dl [facility] Red Cell Distribution Width 13.7 11.0 - 16.0 % [facility] Platelet Count 209 160 - 400 X10*3/uL [facility] Mean Platelet Volume 9.9 9.4 - 12.4 [facility] NRBC Pct Auto 0.0 0.0 - 0.2 /100WBC [facility] NRBC Abs Auto 0.000 0.0 - 0.012 X10*3/uL [facility] 06/17/2022 10:1 4 AM EST 06/17/2022 10:14 AM EST [facility] External Provider LAB BLO OD ORDERABLES Final Result Performing Organization Address City/State/[facility] Co de Phone Number [facility] [address] [place] [address] [phone] documented in this encounter Visit Diagnoses Not on filedocumented in this encounter Care Teams Fruit Pitter Relationship Specialty Start Date End Date Arsh aGmez MD [address] [place] [phone] PCP - General Internal Medicine 12/18/13 documented as of this encounter
--- OUTSIDE RECORDS SUMMARY | 2024-06-27 07:38 | XMS_ITS | Encounter Summary ---
Author Organization [employer] [facility] Address 75 [facility] 7t [place] [address] Care Team Providers Care Route Driver Coin Machines Name Role Phone Arsh Gamez MD Primary Care Provide r Encounter Details Date Type Department Care Team (Late st Contact Info) Description 07/16/2022 Abstract [facility] ADULT DENTAL [address] [place], [place] [phone] Power Davis DMD [address] [place] [address] Social History Tobacco Use Types Packs/Day Years [...] suspected to have Coronavirus/COVID-19? No / Unsure 07/08/2022 8:44 AM EST documented as of this encounter Plan of Treatment Upcoming Encounters Date Type Department Care Team (Late st Contact Info) Description 07/16/2024 8:00 AM EST Office Visit [facility] ADULT DENTAL [address] [place], [place] [phone] Elizabeth Cordova, OLIVA [address] [place], [place] [phone] 07/23/2024 8:00 AM EDT Office Visit [facility] ADULT DENTAL [address] [place] [address] Shaji-Sania Marin, DDS [address] [place] [address] 11/27/2024 8:00 AM EDT Office Visit [facility] ADULT DENTAL [address] [place] [address] Dawn Bird documented as of this encounter Visit Diagnoses Not on filedocumented in this encounter Care Teams Route Driver Coin Machines Relationship Specialty Start Date End Date Arsh Gamez MD [address] [place] [address] PCP - General Internal Medicine 12/18/13 documented as of this encounter
--- OUTSIDE RECORDS SUMMARY | 2024-06-27 07:38 | XMS_ITS | Encounter Summary ---
Author Organization [employer] Address 75 [facility] 7t [place] [address] Care Team Providers Care Architectural Wood Model Maker Name Role Phone Arsh Gamez MD Primary Care Provide r Reason for Visit * Reason Comments Consult #32 Encounter Details Date Type Department Care Team ([facility] Contact Info) Description 06/20/2024 3:15 PM EST Office Visit [facility] ADULT DENTAL [address] [place], [place] [phone] Christian Ortiz, DMD [address] [place] [address] Social History Tobacco Use Types Packs/Day Years [...] Sign Reading Time Taken Comments Blood Pressure 120/72 06/20/2024 2:56 PM EST Pulse - - Temperature - - Respiratory Rate - - Oxygen Saturation - - Inhaled Oxygen Concentration - - Weight - - Height - - Body Mass Index - - documented in this encounter Progress Notes * Christian Ortiz DMD - 06/20/2024 3:15 PM EST Pt presents for evaluation for extraction tooth 32; no Cx of symptoms PMHx, Medications and allergies reviewed and apppreciated PE: tooth 32 not visible, asymptomatic; OCS otherwise negative PANO: horizontal full bone impacted tooth 32 with no pathology Dx: asymptomatic full bone impacted tooth 32 R/B/I/A for extraction of full bone impacted tooth 32 under local anesthesia reviewed NV: re consult for extraction if tooth becomes symptomatic documented in this encounter Plan of Treatment Upcoming Encounters Date Type Department Care Team (Late st Contact Info) Description 07/16/2024 8:00 AM EST Office Visit [facility] ADULT DENTAL [address] [place] [address] Elizabeth Cordova DMD [address] [place] [address] 07/23/2024 8:00 AM EDT Office Visit [facility] ADULT DENTAL [address] [place] [address] Sania Chopra, DDS [address] [place] [address] 11/27/2024 8:00 AM EDT Office Visit [facility] ADULT DENTAL [address] [place] [address] Dawn Bird documented as of this encounter Procedures Procedure Name Priority Date/Time Associated Diagnosis Comments CONSULTATION - DIAGNOSTIC SERVICE PROVIDED BY DENTIST OR PHYSICIAN OTHER THAN REQUESTING DENTIST OR PHYSICIAN Routine 06/20/2024 3:15 PM EST documented in this encounter Visit Diagnoses Not on filedocumented in this encounter Additional Health Concerns Assessment Noted Time PHQ-9 Depression Total Score: 0 09/29/19 24 9:32 AM EDT documented as of this encounter Care Teams Architectural Wood Model Maker Relationship Specialty Start Date End Date Arsh Gamez MD [address] [place] [phone] PCP - General Internal Medicine 12/18/13 documented as of this encounter
--- OUTSIDE RECORDS SUMMARY | 2024-06-27 07:38 | XMS_ITS | Encounter Summary ---
Author Organization [facility] Address [address] [place] [address] [address] [place] [address] Care Team Providers Care Riding Instructor Name Role Phone Arsh Gamez MD Primary Care Provide r Reason for Visit * Reason Onset Date Comments Pre Op 07/19/2022 Appointment Request 07/22/2022 r/s Pre Op Encounter Details Date Type Department Care Team ([facility] st Contact Info) Description 07/19/2022 Telephone [facility] MEDICINE [address] [place], [place] [phone] Arsh Gamez MD [address] [place], [place] [phone] Pre Op; Appointment Request (r/s Pre Op ) Social History Tobacco Use Types Packs/Day Years [...] suspected to have Coronavirus/COVID-19? No / Unsure 07/22/2022 8:34 AM EST documented as of this encounter Miscellaneous Notes * Telephone Encounter - Annabelle العراقي - 07/28/2022 11:42 AM EDT Tc from from pt returning phone call regarding messages below. Pt states to please call before 11 am every day. Please contact pt at [phone] * Telephone Encounter - Autumn Ramirez RN - 07/23/2022 2:53 PM EST T/C returned to pt to r/s preop as below. No answer, left v/m. * Telephone Encounter - Alyssa Aparicio - 07/22/2022 10:42 AM EST Tc from patient calling to r/s Pre op appt from 09/03/22, states appt has to be with PCP for clearance and that appt time has to be before 10 am due to him working in [place] for 11am. * Telephone Encounter - Cami Martin RN - 07/19/2022 1:53 PM EST Call to [facility] to inform them of pt's appt. No answer. Left VM with appt details and asked for them to call pt with appointment * Telephone Encounter - Cami Martin RN - 07/19/2022 12:31 PM EST Call from Torrie at [facility]. Pt does not needs labs but does need an EKG. Reports the physical, on their end, does not need to be within 30 days. Reports surgical team usually decides day of surgery if they will use general vs spinal with block. * Telephone Encounter - Cami Martin RN - 07/19/2022 12:10 PM EST Call to [facility] for more information. Pt has an upcoming partial R knee replacement for which he needs a pre-op. Surgery is scheduled for 10/12/22. It is with Dr. Huntley. Unsure of labs/ekg/anesthesia. Left message with joint replacement nurse requesting call back to discuss these details. * Telephone Encounter - Jonna Cabello - 07/19/2022 10:44 AM EST Tc from pt requesting a Pre Op appt Location : [address] [place] [id number] Procedure : Knee Transplant Labs: does not know EKG: does not know Anesthesia: Does not know Surgeon: does not know documented in this encounter Plan of Treatment Upcoming Encounters Date Type Department Care Team (Late st Contact Info) Description 07/16/2024 8:00 AM EST Office Visit [facility] ADULT DENTAL [address] [place] [address] Elizabeth Cordova, DMD [address] [place] [address] 07/23/2024 8:00 AM EDT Office Visit [facility] ADULT DENTAL [address] [place] [address] Girard-Marin, Sania, DDS [address] [place] [address] 11/27/2024 8:00 AM EDT Office Visit [facility] ADULT DENTAL [address] [place] [address] Dawn Bird documented as of this encounter Visit Diagnoses Not on filedocumented in this encounter Care Teams Riding Instructor Relationship Specialty Start Date End Date Arsh Gamez MD [address] [place] [address] PCP - General Internal Medicine 12/18/13 documented as of this encounter
--- OUTSIDE RECORDS SUMMARY | 2024-06-27 07:38 | XMS_ITS | Encounter Summary ---
Author Organization [facility] Address [address] [place] [address] Care Team Providers Care Machine Joiner Cementer Name Role Phone Arsh Gamez MD Primary Care Provide r Reason for Visit * Reason Onset Date Comments Results 03/27/2024 Encounter Details Date Type Department Care Team ([facility] st Contact Info) Description 03/27/2024 Telephone [facility] MEDICINE [address] [place], [place] [phone] Arsh Gamez MD [address] [place], [place] [phone] Results Social History Tobacco Use Types Packs/Day Years [...] your housing situation today? I have timothy sing 09/29/[address] you li [...] encounter Miscellaneous Notes * Telephone Encounter - Cristi Hamilton - 03/27/2024 4:19 PM EST TC from pt requesting call back regarding Results. Type of results: Labs Date when done: 03/27/24 Facility: Labs documented in this encounter Plan of Treatment Upcoming Encounters Date Type Department Care Team (Late st Contact Info) Description 07/16/2024 8:00 AM EST Office Visit [facility] ADULT DENTAL [address] [place] [address] Elizabeth Cordova, DMD [address] [place] [address] 07/23/2024 8:00 AM EDT Office Visit [facility] ADULT DENTAL [address] [place] [address] Shaji-Sania Marin, DDS [address] [place] [address] 11/27/2024 8:00 AM EDT Office Visit [facility] ADULT DENTAL [address] [place] [address] Dawn Bird documented as of this encounter Visit Diagnoses Not on filedocumented in this encounter Additional Health Concerns Assessment Noted Time PHQ-9 Depression Total Score: 0 09/29/19 24 9:32 AM EDT documented as of this encounter Care Teams Machine Joiner Cementer Relationship Specialty Start Date End Date Arsh Gamez MD [address] [place] [address] PCP - General Internal Medicine 12/18/13 documented as of this encounter
--- OUTSIDE RECORDS SUMMARY | 2024-06-27 07:38 | XMS_ITS | Encounter Summary ---
Author Organization [facility] Address [address] [place] [address] 7[address] [place] [address] Care Team Providers Care Artificial Teeth Inspector Name Role Phone Arsh Gamez MD Primary Care Provide r Encounter Details Date Type Department Care Team (Latest Contact Info) Description 05/18/2021 Abstract [facility] CONVERSIONS Dental, Provider, DDS Social History Tobacco [...] Description 07/16/2024 8:00 AM EST Office Visit [facility] ADULT DENTAL [address] [place] [address] Elizabeth Cordova, DMD [address] [place] [address] 07/23/2024 8:00 AM EDT Office Visit [facility] ADULT DENTAL [address] [place] [address] Sania Chopra, DDS [address] [place] [address] 11/27/2024 8:00 AM EDT Office Visit [facility] ADULT DENTAL [address] [place] [address] Dawn Bird documented as of this encounter Visit Diagnoses Not on filedocumented in this encounter Care Teams Artificial Teeth Inspector Relationship Specialty Start Date End Date Arsh Gamez MD [address] [place] [address] PCP - General Internal Medicine 12/18/13 documented as of this encounter
--- OUTSIDE RECORDS SUMMARY | 2024-06-27 07:38 | XMS_ITS | Encounter Summary ---
Author Organization [employer] [facility] Address [address] [place] [address] Care Team Providers Care Leak Operator Paraffin Plant Name Role Phone Arsh Gamez MD Primary Care Provide r Reason for Visit * Reason Onset Date Comments July recall 06/06/2024 Encounter Details Date Type Department Care Team ([facility] st Contact Info) Description 06/06/[address] [facility] MEDICINE [address] [place], [place] [phone] Arsh Gamez MD [address] [place], [place] [phone] July recall Social History Tobacco Use Types Packs/Day Years [...] encounter Miscellaneous Notes * Telephone Encounter - Margaret Costa MA - 06/06/2024 10:27 AM EST T/C- Tank Maker Wood Left Voice Mail to return call to schedule an appointment. Recall letter sent. Appointment: Office Visit Note: DM Month: July With: Kole Please schedule appointment if Patient calls Back. documented in this encounter Plan of Treatment Upcoming Encounters Date Type Department Care Team (Late st Contact Info) Description 07/16/2024 8:00 AM EST Office [address] [facility] ADULT DENTAL [address] [place] [address] Elizabeth Cordova, DMD [address] [place] [address] 07/23/2024 8:00 AM EDT Office Visit [facility] ADULT DENTAL [address] [place] [address] Sania Chopra, DDS [address] [place] [address] 11/27/2024 8:00 AM EDT Office Visit [facility] ADULT DENTAL [address] [place], [place] [phone] Dawn Bird documented as of this encounter Visit Diagnoses Not on filedocumented in this encounter Additional Health Concerns Assessment Noted Time PHQ-9 Depression Total Score: 0 09/29/19 24 9:32 AM EDT documented as of this encounter Care Teams Leak Operator Paraffin Plant Relationship Specialty Start Date End Date Arsh Gamez MD [address] [place] [address] PCP - General Internal Medicine 12/18/13 documented as of this encounter
--- OUTSIDE RECORDS SUMMARY | 2024-06-27 07:38 | XMS_ITS | Clinical Summary ---
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 1 Active tamsulosin (Flomax) 0.4 MG 24 hr capsule Take 1 capsule by mouth at bedtime. 3 Active metFORMIN XR (Glucophage-XR) 500 MG 24 hr tablet TOME MARCELINA TABLETA TODOS LOS MCKAY ED 90 tablet 3 4 Active omeprazole (PriLOSEC) [address] capsule TOME MARCELINA CAPSULA DOS VECES AL JOHN PAUL BEFORE A MEAL 180 capsule 3 4 Active fluticasone (Flonase) 50 MCG/ACT nasal sprayIndications: Seasonal allergies ADMINISTER 1 TO SPRAYS INTO EACH NOSTRIL IN THE MORNING. SHAKE GENTLY. BEFORE FIRST USE, PRIME PUMP. AFTER USE, CLEAN TIP AND REPLACE CAP. 48 mL 4 Active acetaminophen (Tylenol) 500 MG tablet Take 1 tablet (500 mg) by mouth every 6 (six) hours if needed for mild pain for up to 20 doses. 20 tablet 4 Active finasteride (Proscar) 5 MG tabletIndications :Benign prostatic hyperplasia with urinary frequency TAKE 1 TABLET (5 MG) BY MOUTH ONCE PER DAY. 90 tablet 1 4 Active metoprolol succinate XL (Toprol-XL) 25 MG 24 hr tablet TAKE 1 TABLET BY MOUTH EVERY DAY 90 tablet 1 4 Active lisinopril 40 MG tabletIndications :Primary hypertension TOME MARCELINA TABLETA TODOS LOS MCKAY 90 tablet 3 4 Active glucose blood (FREESTYLE LITE) test stripIndications: Type 2 diabetes mellitus without complication, without long-term current use of insulin ([facility]) TEST BLOOD SUGAR ONCE DAILY 100 strip 3 4 Active amoxicillin (Amoxil) 500 MG capsule Take 4 caps 1 hour prior dental procedure 12 capsule 5 Active Active Problems Problem Noted Date Diagnosed Date Erythema of mucous membrane of oral vestibule Elevated PSA 12/20/2023 Assessment & Plan (05/03/2024 9:22 AM EST): Last PSA 04/19/2024 down to 3.31. 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, he can not seat for a long time and can not hold urine) ALESSANDRA (acute kidney injury) 09/29/2023 Assessment & Plan (09/29/2023 11:13 AM EDT): eGFR is improving, it was advise to avoid nephrotoxic medications like NSAIDs, continue to follow by nephrology BMP ordered to continue to monitor Tinea 10/19/2022 Assessment & Plan (10/19/2022 9:07 AM EDT): Pt with c/o this on and off on his feet, in the past did well with Lotrisone, he is requesting a refill Will send Dental calculus 08/05/2022 Chronic periodontitis, generalized, slight 08/05 Localized gingival recession, minimal 08/05/2022 Seasonal allergies 06/17/2022 Assessment & Plan (06/17/2022 9:33 AM EST): Cetirizine and flonase Rx Complex tear of medial meniscus of right knee Benign prostatic hyperplasia with urinary freque ncy 06/16/2022 Assessment & Plan (05/03/2024 9:24 AM EST): Follows with urology Under the care of Dr. Fofana (Urology). Recommended to continue Flomax and Proscar Last PSA 04/19/2024 down to 3.31. Seen by Madeleine Blanco who recommended a 6 month follow up.Pt requested a second opinion Assessment & Plan (06/16/2022 1:54 PM EST): Follows with urology Under the care of Dr. Fofana (Urology). Recommended to continue Flomax and f/u with him Polycythemia 06/16/2022 Assessment & Plan (06/16/2022 1:54 PM EST): Pt with persistent erthrocytosis on and off. Pt was referred to hematology for further work up.So far work up unremarkable He has been seen by last on 02/10/2017 SHIRLENE positive 12/18/2021 Assessment & Plan (06/16/2022 2:01 PM EST): Pt extensively evaluated by health safety specialist Dr. Arrington last seen 10/02/2012. He did not think his blood work was indicative of SLE. last seen 12/05/2012 Chronic lower back pain 12/18/2021 Assessment & Plan (06/16/2022 1:58 PM EST): Pt had a previous Hx of right alfonso laminectomy defect at L4-L5 and L5 to S1 most [place] [facility] showed no evidence of recurrent disc herniation. In the past he has received steroid injections and takes Flexeril and Diclofenac prn. He has had PT in the past as well. Pt was referred back to the [facility] in the past CKD (chronic kidney disease) stage 1, GFR 90 ml/min or greater 12/18/2021 Depression 12/18/2021 Paroxysmal tachycardia 12/18/2021 Assessment & Plan (05/03/2024 9:26 AM EST): Previous EKG showed: frequent PVCs Previous visit pt was referred for an Event monitor to r/o paroxysmal SVT Pt under the care of Cardiology, last seen 08/03/2023 Assessment & Plan (06/17/2022 9:18 AM EST): Previous EKG showed: frequent PVCs Previous visit pt was referred for an Event monitor to r/o paroxysmal SVT Pt under the care of Cardiology Multiple renal cysts 03/04/2021 Nephrolithiasis 03/04/2021 Assessment & Plan (06/17/2022 9:19 AM EST): Pt is seeing the Urologist, records requested Stone analysis showed Calcium oxalate ( see under scanned labs) 10/31/2019 Also following with Nephrology Proteinuria 01/23/2021 Unspecified hypertensive kid viv disease with chronic kidney disease stage I through stage IV, or unspecified 01/23/2021 Arthritis of knee, left 05/18/2019 Assessment & Plan (03/22/2023 9:41 AM EST): Under the care of Ortho Dr Andrew Huntley S/P TKR Back in September 2022. Considering doing the same on his left knee MRI Left knee 03/14/2023 showed: IMPRESSION: 1. Complex tear body and posterior horn medial meniscus with meniscal extrusion. 2. Advanced degenerative changes of the medial compartment. Mild degenerative changes of the patellofemoral and lateral compartments. 3. Moderately sized joint effusion with synovial proliferation 4. Grade 1 sprain of the MCL. 5. Small popliteal fossa cyst Arthritis of knee, right 05/18/2019 Assessment & Plan (10/19/2022 8:31 AM EDT): Seen by Ortho Dr Andrew Huntley S/P TKR Back in September 2022 Assessment & Plan (06/16/2022 2:04 PM EST): Seen by Ortho Dr Andrew Huntley Type 2 diabetes mellitus without complication Assessment & Plan (05/03/2024 9:37 AM EST): Pt here for a follow up in regards to his DM He used to be on Metformin XR 500 mg po daily, but he stopped it 2 weeks ago. Pt tells me he has been monitoring his glucose and is ranging between 85-90 Hgb A1c on 05/03/2024: 5.8 Microalbumin 06/17/2022 was 123 Pt on an DAVID inhibitor (lisinopril) Foot check risk of zero Pt reports compliance with Asa 81 mg po daily Plan: Continue off Metformin for now. Pt advised to: adhere to diabetic diet check your blood sugars regularly check your feet on a daily basis Assessment & Plan (08/02/2023 2:06 PM EDT): Pt here for a follow up in regards to his DM He is on a regimen of Metformin XR 500 mg po daily BG average 102 Hgb A1c on 08/02/2023: 6.7 Microalbumin 03/14/2020 was 6.9 Pt on an DAVID inhibitor (lisinopril) Foot check risk of zero Pt reports compliance with Asa 81 mg po daily Plan: Continue with current regimen Pt advised to: adhere to diabetic diet check your blood sugars regularly check your feet on a daily basis Assessment & Plan (03/22/2023 9:35 AM EST): Televisit in regards to his DM He is on a regimen of Metformin XR 500 mg po daily BG average 108 Hgb A1c on 06/17/2022 5.5. will repeat Microalbumin 03/14/2020 was 6.9 Pt on an DAVID inhibitor (lisinopril) Today will order Foot check not done Pt reports compliance with Asa 81 mg po daily Plan: Continue with current regimen Pt advised to: adhere to diabetic diet check your blood sugars regularly check your feet on a daily basis Assessment & Plan (10/19/2022 8:30 AM EDT): Televisit in regards to his DM He is on a regimen of Metformin XR 500 mg po daily BG average 111 Hgb A1c on 06/17/2022 5.5 Microalbumin 03/14/2020 was 6.9 Pt on an DAVID inhibitor (lisinopril) Today will order Foot check risk of zero Pt reports compliance with Asa 81 mg po daily Plan: Continue with current regimen Pt advised to: adhere to diabetic diet check your blood sugars regularly check your feet on a daily basis Assessment & Plan (06/17/2022 9:19 AM EST): Patient is here for a f/u in regards to his DM improving on a regimen of Metformin XR 500 mg po daily BG average 101 Hgb A1c on 06/17/2022 5.5 Microalbumin 03/14/2020 was 6.9 Pt on an DAVID inhibitor (lisinopril) Today will order Foot check risk of zero Pt reports compliance with Asa 81 mg po daily Plan: Continue with current regimen Pt advised to: adhere to diabetic diet check your blood sugars regularly check your feet on a daily basis Tubular adenoma of colon 07/08/2016 Assessment & Plan (06/16/2022 2:02 PM EST): Tubular Adenoma 04/2015, repeat 06/11/2020 showed hyperplastic polyp (Dr Vitale ) Essential hypertension 04/29/2015 Assessment & Plan (05/03/2024 9:53 AM EST): Patient is here for a follow up BP controlled He is on: lisinopril 40. hydralazine 50 mg 2 tabs po TID , Amlodipine 5 mg po daily, Metoprolol succinate ER 25 mg every day, HCTZ discontinued due to pancreatitis Pt back to see Dr Campbell ( outer diameter technician) Pt stopped Amlodipine due GI side effects and dizziness BMP Lab Results Component Value Date NA 142 04/19/2024 NA 140 03/27/2024 K 3.6 04/19/2024 K 3.8 03/27/2024 CL 105 04/19/2024 CL 107 03/27/2024 BUN 21 (H) 04/19/2024 BUN 15 03/27/2024 CREATININE 1.37 04/19/2024 CREATININE 1.13 03/27/2024 Normal Plan: continue current regimen Follow up in 4 months Assessment & Plan (09/29/2023 11:09 AM EDT): In light blood pressure is trending up again I will re-start his lisinopril in a much lower dose 10mg daily, I ordered a BMP I advise to do it about 1 week after starting medication Assessment & Plan (08/02/2023 2:05 PM EDT): Patient is here for a follow up BP controlled He is on: lisinopril 40. hydralazine 50 mg 2 tabs po TID , Metoprolol succinate ER 25 mg every day, HCTZ discontinued due to pancreatitis Pt back to see Dr Campbell ( outer diameter technician) Pt stopped Amlodipine due GI side effects and dizziness BMP 05/26/2023 Normal ( scanned ) Plan: continue current regimen Follow up in 4 months Assessment & Plan (03/22/2023 9:34 AM EST): Televisit BP controlled per his report He is on: lisinopril 40. hydralazine 50 mg 2 tabs po TID , Metoprolol succinate ER 25 mg every day, HCTZ discontinued due to pancreatitis Pt back to see Dr Campbell ( outer diameter technician) Pt stopped Amlodipine due GI side effects and dizziness [facility] 06/2022 Normal. Will repeat Plan: continue current regimen Follow up in 4 months in person Assessment & Plan (10/19/2022 8:29 AM EDT): Televisit BP controlled per his report He is on: lisinopril 40. hydralazine 50 mg 2 tabs po TID , Metoprolol succinate ER 25 mg every day, HCTZ discontinued due to pancreatitis Pt back to see Dr Campbell ( outer diameter technician) Pt stopped Amlodipine due GI side effects and dizziness [facility] 06/2022 Normal Plan: continue current regimen Follow up in 4 months Assessment & Plan (06/16/2022 1:52 PM EST): Here for a f/u BP controlled He is on: lisinopril 40. hydralazine 50 mg 2 tabs po TID , Metoprolol succinate ER 25 mg qd a HCTZ discontinued due to pancreatitis Pt back to see Dr Campbell ( outer diameter technician) Pt stopped Amlodipine due GI side effects and dizziness Plan: continue current regimen Follow up in 4 months Gastroesophageal reflux disease without esophagi tis 02/12/2014 Assessment & Plan (06/16/2022 2:01 PM EST): Patient under the care [facility]. Last seen by Dr Vitale 01/09/2013. He recommended he continued on Omeprazole 20 mg po BID. Erectile dysfunction 02/04/2012 Migraine 02/04/2012 Assessment & Plan (06/16/2022 2:00 PM EST): Patient has had extensive evaluation in the past by Neurology specialist Dr. Rosa ,last seen in 04/09/2014 . He recommended the use of sumatriptan Previous work up in the past included an MRI of hr brain on 05/06/2003 that showed: no acute intra cranial process. Pt will continue to f/u with Neurology Uses Sumatriptan PRN Hypertriglyceridemia 07/15/2011 Assessment & Plan (05/03/2024 9:24 AM EST): Will repeat Lab Results Component Value Date TRIG 154 06/17/2022 CHOL 176 06/17/2022 LDLCHOLCAL 119 06/17/2022 HDL 27 06/17/2022 Pt would like to lower them with diet and exercise Assessment & Plan (08/02/2023 2:07 PM EDT): Most recent Lipid profile showed elevated triglycerides Pt would like to lower them with diet and exercise Encounters Date Type Department Care Team Description 06/20/2024 3:15 PM EST Office Visit [facility] [address] [place], [place] [id number] Christian Ortiz DMD 06/06/2024 Telephone [facility] [address] [place] [address] Arsh Gamez MD July recall 06/05/2024 Orders Only [facility] External Provider, [facility] 05/29/2024 8:00 AM EST Office Visit [facility] [address] [facility] [place] [address] Dawn Bird Dental plaque (Primary Dx); Dental calculus 05/29/2024 Telephone [facility] [address] [place] [address] Autumn Jones RN Paperwork/Forms 05/24/2024 Telephone [facility] [address] [place] [address] Joe Birda 05/17/2024 Telephone [facility] [address] [facility] [place] [address] Sheyla Fu rescheduled appt mistakenly cancelled 05/11/2024 Refill [facility] [address] [place] [address] Arsh Gamez MD Need for prophylactic antibiotic 05/10/2024 Telephone [facility] [address] [facility] [place] [address] Arsh Gamez MD Nurse Triage 05/03/2024 9:15 AM EST Office Visit [facility] [address] [facility] [place] [address] Arsh Gamez MD Essential hypertension (Primary Dx); Type 2 diabetes mellitus without complication, without long-term current use of insulin ([facility]); Elevated PSA; Benign prostatic hyperplasia with urinary frequency; Hypertriglyceridemia; Paroxysmal tachycardia (CMS/HCC) 05/03/2024 Telephone [facility] [address] [place] [address] Arsh Gamez MD Referral 05/03/2024 Travel 04/27/2024 Telephone [facility] [address] [facility] [place] [address] Arsh Gamez MD Chart Prep 04/20/2024 Telephone [facility] [address] [facility], [place] [phone] Alicia Mcleod RN Results 04/19/2024 Telephone [facility] [address] [place] [address] Alicia Mcleod RN Results 04/08/2024 Refill [facility] [address] [place] [address] Gloria Parrish MD 04/06/2024 Refill [facility] [address] [place] [address] Arsh Gamez MD Primary hypertension; Type 2 diabetes mellitus without complication, without long-term current use of insulin ([facility]) 04/06/2024 Refill [facility] [address] [place] [address] Power Davis DMD 03/28/2024 Telephone [facility] [address] [place] [address] Sona Solorzano MD 03/27/2024 10:00 AM EST Office Visit [facility] [address] [place] [address] Sona Solorzano MD Lower abdominal pain (Primary Dx); Proteinuria, unspecified type 03/27/2024 Telephone [facility] [address] [place] [phone] Arsh Gamez MD Results 03/27/2024 Telephone [facility] [address] [place] [address] Arsh Gamez MD Results from Last 3 Months Immunizations Name Administration Dates Next Due Hep B, adult 04/17/2001,01/12/2000,12/14/1999 Influenza injectable quadriv alent IIV4 with preservative 01/30/2019,03/15/2016,03/21/2015 Influenza injectable quadriv alent preservative free 04/02/2023,03/17/2022,05/14/2021,2019,02/08/2018 Influenza, IIV3, injectable 02/12/2014, 1 Influenza, Split (incl. latrell fied surface antigen) 03/07/2013,02/04/2012 TD (adult), 2 Lf tetanus tox oid, preservative free, adsorbed 12/14/1999 Tdap 08/14/2015 Social History Tobacco Use Types Packs/Day Years Used Date Smoking Tobacco: Never Passive Smoke Exposure: Never Smokeless Tobacco: Never Tobacco Cessation:Counseling Given: Not Answered Alcohol Use Standard Drinks/Week Comments Defer 0 [...] Orientation Straight 03/15/2022 10 :15 AM EDT Last Filed Vital Signs Vital Sign Reading Time Taken Comments Blood Pressure 120/72 06/20/2024 2:56 PM EST Pulse 63 05/03/2024 8:54 AM EST Temperature 36.2 ??C (97.2 ??F) 05/03/2024 8:54 AM ES T Respiratory Rate 15 05/03/2024 8:54 AM EST Oxygen Saturation 98% 05/03/2024 8:54 AM EST Inhaled Oxygen Concentration - - Weight 64 kg (141 lb 3.2 oz) 05/03/2024 8:54 AM EST Height 165.1 cm (5' 5 ) 05/03/2024 8:54 AM EST Body Mass Index 23.5 05/03/2024 8:54 AM EST Plan of Treatment Upcoming Encounters Date Type Department Care Team (Late st Contact Info) Description 07/16/2024 8:00 AM EST Office Visit [facility] [address] [place] [address] Elizabeth Cordova, DMD [address] [place] [address] 07/23/2024 8:00 AM EDT Office Visit [facility] [address] [place] [address] Sania Chopra, DDS [address] [place] [address] 11/27/2024 8:00 AM EDT Office Visit [facility] [address] [place] [address] Dawn Bird Health Maintenance Due Date Last Done Comments CT Colonography 1960 FIT DNA/Cologuard 1960 FIT 1960 FOBT 1960 HIV Screening 1960 Sigmoidoscopy 1960 Diabetes: Foot Exam 02/24/1970 Eye Exam 02/24/1970 Pneumococcal Vaccine: 50+ Years (1 of 2 - PCV) 02/24/1979 Zoster Vaccines (1 of 2) 02/24/2010 RSV Patients and Patients Aged 60 years or older (1 - Risk 60-74 years 1-dose series) 2020 COVID-19 Vaccine ( season) 2024 04/29/2021, 07/22/2020, 06/24/2020 Influenza Vaccine (#1) 2024 3, 03/17/2022, 05/14/2021, Additional history exists Depression Screening 09/28/2024 09/29/2023, 09/29/19 24 SDOH Screening 09/28/2024 09/29/2023 Diabetes: Hemoglobin A1C 11/01/2024 024, 08/02/2023, 08/02/2023, Additional history exists Dental Oral Exam 11/27/2024 05/29/2024, , 07/08/2022 Dental Prophylaxis 11/27/2024 05/29/2024, 0 08/03/2023, 08/05/2022 Dental X-Ray: Bitewings 01/12/2025 01/12/20 24, 08/03/2023, 07/08/2022 Diabetes: Urine Protein Screening 04/19/2025 04/19/2024, 06/17/2022, 03/14/2020 Alcohol/Substance Use Screening 05/03/2025 05/03/2024 Lipid Panel 05/23/2025 05/23/2024, 02/0 06/2022, 12/30/2021, Additional history exists Tobacco Screening 05/29/2025 05/29/2024 Colonoscopy 06/11/2025 06/11/2020 Colorectal Cancer Screening 06/11/2025 DTaP/Tdap/Td Vaccines (2 - Td or Tdap) 08/13/2025 08/14/2015, 12/14/1999 Dental X-Ray: Full Mouth 01/11/2027 01/11/2024 Hepatitis B Vaccines Completed 04/17/2001, 01/12/2000, 12/14/1999 Hepatitis C Screening Completed 06/17/2022 , 06/17/2022, 12/30/2021 HIB Vaccines Aged Out No longer eligi ble based on patient's age to complete this topic HPV Vaccines Aged Out No longer eligi ble based on patient's age to complete this topic Hepatitis A Vaccines Aged Out No long er eligible based on patient's age to complete this topic IPV Vaccines Aged Out No longer eligi ble based on patient's age to complete this topic Meningococcal Vaccine Aged Out No troy helen eligible based on patient's age to complete this topic RSV under 20 months Aged Out No longe r eligible based on patient's age to complete this topic Rotavirus Vaccines Aged Out No longer eligible based on patient's age to complete this topic Procedures Procedure Name Priority Date/Time Associated Diagnosis Comments CONSULTATION - DIAGNOSTIC SERVICE PROVIDED BY DENTIST OR PHYSICIAN OTHER THAN REQUESTING DENTIST OR PHYSICIAN Routine 06/20/2024 3:15 PM EST US RENAL BI Routine 06/05/2024 11:34 AM EST PERIODIC ORAL EVALUATION - ESTABLISHED PATIENT Routine 05/29/2024 8:00 AM EST ORAL HYGIENE INSTRUCTIONS Routine 05/29/2024 8:00 AM EST ADJUNCTIVE GENERAL SERVICES - PROFESSIONAL VISITS - CASE PRESENTATION, SUBSEQUENT TO DETAILED AND EXTENSIVE TREATMENT PLANNING Routine 05/29/2024 8:00 AM EST ORAL HYGIENE INSTRUCTIONS Routine 05/29/2024 8:00 AM EST Dental plaque Dental calculus Full PROPHYLAXIS - ADULT Routine 05/29/2024 8:00 AM EST Dental plaque Dental calculus INTRAORAL - PERIAPICAL FIRST RADIOGRAPHIC IMAGE Routine 05/29/2024 8:00 AM EST BASIC METABOLIC PANEL Routine 05/23/2024 8:09 AM EST LIPID PANEL, STANDARD Routine 05/23/2024 8:09 AM EST Hypertriglyceridemia POCT GLYCATED HEMOGLOBIN, TOTAL Routine 05/03/2024 9:01 AM EST Type 2 diabetes mellitus without complication, without long-term current use of insulin ([facility]) POCT GLUCOSE Routine 05/03/2024 8:57 AM EST Type 2 diabetes mellitus without complication, without long-term current use of insulin ([facility]) URINE PROTEIN, TOTAL, RANDOM (W/O CREATININE) Routine 04/19/2024 8:17 AM EST CREATININE, RANDOM URINE Routine 04/19/2024 8:17 AM EST COMPREHENSIVE METABOLIC PANEL Routine 04/19/2024 8:17 AM EST CBC WITH AUTO DIFFERENTIAL Routine 04/19/2024 8:17 AM EST PSA, SCREEN Routine 04/19/2024 8:17 AM EST Benign prostatic hyperplasia with urinary frequency URINALYSIS, COMPLETE, WITH REFLEX TO CULTURE Routine 04/19/2024 8:17 AM EST Proteinuria, unspecified type COMPREHENSIVE METABOLIC PANEL Routine 03/27/2024 10:42 AM EST Lower abdominal pain C-REACTIVE PROTEIN Routine 03/27/2024 10 :42 AM EST Lower abdominal pain CBC WITH AUTO DIFFERENTIAL Routine 03/27/2024 10:42 AM EST Lower abdominal pain POCT URINALYSIS DIPSTICK Routine 03/27/2024 10:26 AM EST Proteinuria, unspecified type BITEWING - SINGLE RADIOGRAPHIC IMAGE Routine 01/12/2024 2:00 PM EDT Tipped teeth Symptomatic periapical periodontitis PANORAMIC RADIOGRAPHIC IMAGE Routine 01/11/2024 1:00 PM EDT HEPATITIS C ANTIBODY REFLEX Routine 06/17/2022 10:14 AM EST HM COLONOSCOPY Routine 06/11/2020 8:26 AM EST from Last 3 Months or Most Recently Relevant to Health Maintenance Results * US RENAL BI (06/05/2024 11:34 AM EST) Anatomical Region Laterality Modality Abdomen Ultrasound 06/05/2024 11:3 4 AM EST Narrative 06/05/2024 12:04 PM EST ? [facility] ?[address] ?[place] [address] ? Ultrasound Report ? Signed ? Patient: Machado,Jakob D ?MR#: [id number] ?? [id number] ? : 1960 ?Acct:[id number] ? Age/Sex: 64 / M ?ADM Date: 01/21/25 ? Loc: HO.US ? Attending Dr: Wyatt Mccoy MD ? Ordering Physician: Wyatt Mccoy MD ?? Date of Service: 06/05/24 ?? Procedure(s): US renal BI ?? Accession Number(s): [id number] ? cc: Wyatt Mccoy MD; Arsh Torres [...] DD/ 1134 ? TD/TT: 06/05/24 1145 ? Supervisor Billposting: ? Procedure Note Pat, Image - 06/05/[address] [address] Ultrasound Report Signed Patient: Jakob Machado [facility]#: [id number] : 1960Acct:[id number] Age/Sex: 64 / MADM Date: 06/05/24 Loc: HO.US Attending Dr: Wyatt Mccoy MD Ordering Physician: Wyatt Mccoy MD Date of Service: 06/05/24 Procedure(s): US renal BI Accession Number(s): [id number] cc: Wyatt Mccoy MD; Arsh Torres MD [...] by: Jareth Galindo MD 06/05/2024 12:01 PM EST Dictated By: Jareth Galindo MD Signed By: <Electronically signed by Jareth Galindo MD in OV> 06/05/24 1201 DD/ 1134 TD/TT: 06/05/24 1145 Supervisor Billposting: us [facility] External Provider IMG US PROCEDURES Edited Result - Final * (ABNORMAL) Lipid Panel, Standard (05/23/2024 8:09 AM EST) Triglycerides 127 <150 mg/dL [facility] Comment:Desirable Triglyceri de: less than 150 mg/dLBorderline High Triglyceride 150-199 mg/dLHigh Triglyceride: 200-499 mg/dLVery High Triglyceride: greater than or equal to 5OO mg/dL Cholesterol 153 <200 mg/dL [facility] Comment:Desirable Cholestero l: less than 200 mg/dLBorderline High Cholesterol: 200-239 mg/dLHigh Cholesterol: greater than 239 mg/dL LDL Cholesterol Calculated 97 <100 mg/dL [facility] Comment:Desirable LDL: less than 100 mg/dLNear Optimal/Above Optimal LDL: 110- 129 mg/dLBorderline High LDL: 130-159 mg/dLHigh LDL: 160-189 mg/dLVery High LDL: greater than or equal to 190 mg/dL HDL Cholesterol 31(L) >40 mg/dL [facility] Comment:Desirable HDL: great er than 40 mg/dL Note: This HDL assay may give artificially low results in patients with liver disease. Blood Venous blood specimen / Unknown 05/23/2024 8:09 AM EST 05/23/2024 8:09 AM EST us Arsh Holliday MD LAB BLOOD ORDERABLES Final Result [facility] [address] [place] [phone] * (ABNORMAL) Basic Metabolic Panel (05/23/2024 8:09 AM EST) Sodium 142 135 - 145 mmol/L [facility] Potassium 4.4 3.3 - 5.1 mmol/L [facility] Chloride 108 96 - 108 mmol/L [facility] Carbon Dioxide 29 22 - 29 mmol/L [facility] Anion Gap 9(L) 12 - 20 [facility] Urea Nitrogen (BUN) 24(H) 9 - 16 mg/dL [facility] Creatinine, Serum 1.25 0.5 - 1.4 mg/dL [facility] Estimated Glomerular Filt Rate 58 [facility] Comment:Chronic Kidney Disea se: Estimated GFR < 60 mL/min/1.46x7Jqglmg Kidney Disease: Estimated GFR < 15 mL/min/1.73m2 Glucose 123(H) 60 - 115 mg/dL [facility] Calcium 8.9 8.4 - 10.2 mg/dL [facility] 05/23/2024 8:09 AM EST 05/23/2024 8:09 AM EST Manju Anderson MD LAB BLOOD ORDERABLES Final Result [facility] [address] [place] [phone] * POCT HGB A1C (05/03/2024 9:01 AM EST) Pathologist [facility] Hemoglobin A1C 5.8 4.0 - 6.0 % QC Media Lot # [id number] Lot# Expiration Date [id number] Blood 05/03/2024 9:01 AM EST Arsh Holliday MD POINT OF CARE TEST EN TER/EDIT ORDERABLES Final Result * POCT Glucose (05/03/2024 8:57 AM EST) Pathologist [facility] Glucose Blood, POC 112 60 - 200 mg/dL QC Media Lot # [id number] Lot# Expiration Date [id number] Blood Capillary blood specimen / Unknown 05/03/2024 8:57 AM EST Arsh Holliday MD POINT OF CARE TEST EN TER/EDIT ORDERABLES Final Result * PSA, Screen (04/19/2024 8:17 AM EST) Pathologist [facility] PSA, Total 3.31 <0.05 - 4.0 ng/mL [facility] Comment:PSA methodology: Abb caron Alinity i ChemiluminescentMicroparticle Immunoassay (CMIA) Blood Venous blood specimen / Unknown 04/19/2024 8:17 AM EST 04/19/2024 11:12 AM EST Arsh Holliday MD LAB BLOOD ORDERABLES Final Result [facility] [address] [place] [phone] * (ABNORMAL) Urinalysis, Complete, with Reflex to Culture (04/19/2024 8:17 AM EST) Color Urine Yellow [facility] Appearance Urine Clear [facility] PH 6.0 5.0 - 9.0 [facility] Glucose Urine UA Negative Negative mg/dL [facility] Urine Blood Negative Negative [facility] Specific Merrill - Urine 1.020 1.005 - 1.025 [facility] Urine Protein 30 (1+)(A) Neg-Trace mg/dL [facility] Urine Ketones Negative Negative mg/dL [facility] Nitrite Urine Negative Negative [facility] Leukocyte Esterase Urine Negative Negative [facility] RBC Urine 0-2 0 - 2 /HPF [facility] Urine WBC 0-5 0 - 5 /HPF [facility] Urine Squamous Epithelial Cell 0-2 0 - 2 /HPF [facility] Urine Bacteria None Seen None Seen [facility] Hyaline Casts, Urine 0-2 0 - 2 /LPF [facility] Urine 04/19/2024 8:17 AM EST 04/19/2024 11:13 AM EST Narrative [facility] - 04/19/2024 11:32 AM EST Urine, Clean Catch us Sona Solorzano MD LAB URINE ORDERABLES Final Re sult [facility] [address] [place] [phone] * CBC auto differential (04/19/2024 8:17 AM EST) Only the most recent of2 resultswithin the time period is included. White Blood Count 7.7 4.8 - 10.8 X10*3/uL [facility] Red Blood Count 5.39 4.60 - 5.80 X10*6/uL [facility] Hemoglobin 15.2 14.0 - 18.0 g/dl [facility] Hematocrit 45.3 42.0 - 52.0 % [facility] Mean Corpuscular Volume 84.0 80.0 - 98.0 fL [facility] Mean Corpuscular Hemoglobin 28.2 27.0 - 33.0 pg [facility] Mean Corpuscular HGB Conc 33.6 31.0 - 36.0 g/dl [facility] Red Cell Distribution Width 13.2 11.0 - 16.0 % [facility] Platelet Count 263 160 - 400 X10*3/uL [facility] Mean Platelet Volume 10.1 9.4 - 12.4 fL [facility] Neutrophils Percent Auto 60.1 45 - 73 % [facility] Imm Gran Pct Auto 0.4 0.0 - 0.4 % [facility] Lymphocytes Percent Auto 28.1 20 - 40 % [facility] Monocytes Percent Auto 9.2 2 - 11 % [facility] Eosinophils Percent Auto 1.8 0 - 4 % [facility] Basophils Percent Auto 0.4 0 - 2 % [facility] NRBC Pct Auto 0.0 0.0 - 0.2 /100WBC [facility] Neutrophils Absolute Auto 4.6 2.0 - 8.3 x10*3/uL [facility] Imm Gran Abs Auto 0.03 0.00 - 0.03 X10*3/uL [facility] Lymphocytes Absolute Auto 2.2 1.2 - 4.9 X10*3/uL [facility] Monocytes Absolute Auto 0.7 0.1 - 1.2 X10*3/uL [facility] Eosinophils Absolute Auto 0.1 0.0 - 0.4 X10*3/uL [facility] Basophils Absolute Auto 0.0 0.0 - 0.2 X10*3/uL [facility] NRBC Abs Auto 0.000 0.0 - 0.012 X10*3/uL [facility] 04/19/2024 8:17 AM EST 04/19/2024 11:12 AM EST us Generic External Data Provider LAB BLOOD ORDERAB LES Final Result Performing Organization Address [facility] Co de Phone Number [facility] [address] [place] [phone] * (ABNORMAL) Urine Protein, Total, Random without Creatinine (04/19/2024 8:17 AM EST) Protein, Total, Random Urine 38(H) <12 mg/dL [facility] 04/19/2024 8:17 AM EST 04/19/2024 11:13 AM EST Generic External Data Provider LAB URINE ORDERAB LES Final Result Performing Organization Address [facility] de Phone Number [facility] [address] [place] [phone] * Creatinine, Random Urine (04/19/2024 8:17 AM EST) Creatinine, Urine 198.06 mg/dL [facility] 04/19/2024 8:17 AM EST 04/19/2024 11:13 AM EST Generic External Data Provider LAB URINE ORDERAB LES Final Result Performing Organization Address [facility] de Phone Number [facility] [address] [place] [address] [phone] * (ABNORMAL) Comprehensive Metabolic Panel (04/19/2024 8:17 AM EST) Only the most recent of2 resultswithin the time period is included. Sodium 142 135 - 145 mmol/L [facility] Potassium 3.6 3.3 - 5.1 mmol/L [facility] Chloride 105 96 - 108 mmol/L [facility] Carbon Dioxide 28 22 - 29 mmol/L [facility] Anion Gap 13 12 - 20 [facility] Urea Nitrogen (BUN) 21(H) 9 - 16 mg/dL [facility] Creatinine, Serum 1.37 0.5 - 1.4 mg/dL [facility] Estimated Glomerular Filt Rate 52 [facility] Comment:Chronic Kidney Disea se: Estimated GFR < 60 mL/min/1.53d2Ndvhya Kidney Disease: Estimated GFR < 15 mL/min/1.73m2 Glucose 108 60 - 115 mg/dL [facility] Calcium 9.5 8.4 - 10.2 mg/dL [facility] Bilirubin, Total 0.7 0.0 - 1.0 mg/dL [facility] Aspartate Amino Transferase 35 5 - 37 U/L [facility] Alanine Aminotransferase 47(H) 0 - 40 U/L [facility] Total Protein 7.3 6.5 - 8.0 g/dL [facility] Albumin Level 4.1 3.5 - 5.0 g/dL [facility] Alkaline Phosphatase 81 39 - 117 U/L [facility] 04/19/2024 8:17 AM EST 04/19/2024 11:12 AM EST us Generic External Data Provider LAB BLOOD ORDERAB LES Final Result Performing Organization Address [facility] Co de Phone Number [facility] [address] [place] [phone] * C-reactive Protein (03/27/2024 10:42 AM EST) C Reactive Protein <0.10 < or = 0.50 mg/dL [facility] Blood Venous blood specimen / Unknown 03/27/2024 10:42 AM EST 03/27/2024 11:32 AM EST us Sona Solorzano MD LAB BLOOD ORDERABLES Final Re sult Performing Organization Address [facility] Co de Phone Number [facility] [address] [place] [phone] * POCT urinalysis dipstick manually resulted (03/27/2024 10:26 AM EST) Color, UA Yellow Clarity, UA Clear Glucose, UA Negative Bilirubin, UA Negative Ketones, UA Negative Spec Grav, UA 1.015 Blood, UA Negative Negative, None Detected pH, UA 8.5 Protein, UA 1+ 70+ Comment:30mg Urobilinogen, UA 0.2 Leukocytes, UA Negative Negative, Rare, Trace Nitrite, UA Negative Negative, None Detected Appearance, UA OK Urine 03/27/2024 10:2 6 AM EST Sona Solorzano MD POINT OF CARE TEST ENTER/EDIT ORDERABLES Final Result * Hepatitis C Antibody Reflex (06/17/2022 10:14 AM EST) Hepatitis C Antibody Nonreactive Nonreactive [facility] Comment:Antibodies to HCV no t detected; does not exclude early acuteHCV infection. 06/17/2022 10:1 4 AM EST 06/17/2022 10:14 AM EST [facility] External Provider LAB BLO OD ORDERABLES Final Result [facility] [address] [place] [phone] * Hm Colonoscopy (06/11/2020 8:26 AM EST) Colonoscopy Normal Normal Historical Provider HEALTH MAINTENANCE Edited Result - Final from Last 3 Months or Most Recently Relevant to Health Maintenance Insurance [facility] ADULT Care Teams Truck Driver Helper Relationship Specialty Start Date End Date Arsh Gamez MD [address] [place] [address] PCP - General Internal Medicine 12/18/13
--- NOTE | 2024-06-27 08:07 | A.OFFVIS_ITS ---
Intake Visit Reasons: BPH Intake Note: New Patient presents for initial visit for BPH Urology Medications: finasteride, tamsulosin Blood Thinner: none PVR: 17ml's Telecommunications Line Mechanic Required: No Accompanied by: Self / Same As Patient Allergies nut - unspecified [NUTS] Allergy (Intermediate, Verified 06/27/24 10:14) ITCHY THROAT nitroglycerin [NITROGLYCERIN] Adverse Reaction (Unknown, Verified 06/27/24 10:14) HEADACHES BREAD Allergy (Mild, Uncoded 06/27/24 10:14) RUNNY NOSE Lopid Allergy (Unknown, Uncoded 06/27/24 10:14) Unknown nsaids Allergy (Unknown, Uncoded 06/27/24 10:14) Unknown Percocet Allergy (Unknown, Uncoded 06/27/24 10:14) Unknown Medication List - Last Reconciled 06/27/24 by ARELIS Castellanos- amlodipine 5 mg PO DAILY finasteride 5 mg PO DAILY fluticasone propionate 50 mcg/actuation 1 spray intranasal DAILY PRN hydralazine 75 mg PO TID hydrochlorothiazide 12.5 mg PO DAILY lisinopril 40 mg PO DAILY metformin ER 500 mg PO DAILY@1800 metoprolol succinate ER 25 mg PO DAILY omeprazole 20 mg PO BID sennosides (Senna Lax) 17.2 mg (2 x 8.6 mg) PO BEDTIME PRN tamsulosin 0.8 mg (2 x 0.4 mg) PO DAILY HPI Comments Details: Jakob is a pleasant 64-year-old male patient of . He has a past medical history of prostatitis, hyperlipidemia, BPH, type 2 diabetes, and hypertension. He presents to the office today for follow-up. Of note, patient was seen approximately 9 months ago inpatient by Dr. Otilio Zimmerman at which time recommendations were made for initiation of finasteride and Flomax. In discussion with the patient today he reports a longstanding history of prostate issues and previously followed up at [facility] with Dr. Salvador for many years. However, recommendations were made for prostate removal and patient does not wish to undergo this treatment option therefore he is here for a 2nd opinion. He discusses noting perineal pressure and lower urinary tract symptoms of intermittent dysuria, debris when urinating, and urinary hesitancy. He reports feeling symptoms worsen after sexual activity. In office MELVA was performed right side of the prostate was noted to be boggy otherwise no masses or nodules palpated. We discussed potential for presumed prostatitis given patient's lower urinary tract symptoms and in office MELVA. Prostate massage was performed discussed sending for microgen testing. In review of patient's chart it appears patient with recent patient with renal imaging 06/09 bilateral kidneys are normal in size, contour, and echogenicity. No calculi, lesions, and or hydronephrosis noted. Left kidney with lower pole simple cysts measuring 1.0 cm. Patient with MRI of the prostate 01/06 noting no definite multi parametric MRI evidence of clinically significant prostate cancer. Equivocal 0.9 cm lesion in the right mid transition zone and 1.8 cm slightly today to hypointense, ill-defined area in the left posterior transition zone base. Both lesions are a PI-RADS 2. Indeterminate. PSA 05/[address] abdomen and pelvis with contrast 09/06 The prostate gland is markedly enlarged measuring 6.3 x 7.2 cm. It is heterogeneous in attenuation and contains multiple calcifications. We discussed at length potential causes of lower urinary tract symptoms patient was experiencing and potential near future in office cystoscopy for further assessment evaluation. We discussed bladder triggers/irritants. He denies foul smelling urine, changes to urinary stream, flank pain, fever, and or chills. [facility] Medical History Prostatitis Hyperlipidemia BPH (benign prostatic hyperplasia) Diabetes 1.5, managed as type 2 HTN (hypertension) Surgical History History of knee surgery Social History Household Members: Spouse, Family and Children Housing: Apartment Do you presently have visiting nurse or other home services: No Patient Tobacco Use Status: Never used Tobacco e-Cigarette/Vaping Use: Never Used service: No Review of Systems Const All systems reviewed & are unremarkable except as noted in HPI and below Physical Exam Const General: cooperative, healthy appearing, comfortable, no acute distress, well developed, alert and awake Orientation/consciousness: patient oriented x3 Limitations: no limitations HEENT Head: Yes normal to inspection, Yes normocephalic and Yes atraumatic Ears: hearing grossly normal bilaterally Eyes General: appearance normal, both eyes and all related structures Neck Neck: Yes normal visual inspection and Yes trachea midline Chest Chest palpation & inspection: normal inspection of the chest Resp Effort & Inspection: normal respiratory effort and able to speak in complete sentences Cardio Rate: regular rate GI Inspection: Yes normal to inspection General: Yes no CVA tenderness Back/Spine/Pelvis Back: no CVA tenderness Skin General skin exam: no rashes or lesions noted Neuro General: patient oriented x3 Extrem General: Yes normal to inspection Psych Appearance: grossly normal and well kempt Mental Status: mental status grossly normal Speech and movement: Normal speech and movement present and Clear speech present Affect: normal affect Attitude: cooperative Thought process: Normal thought process present Thought content: Normal thought content present Insight: Fair insight present (Psych) Judgement: Fair judgement present (Psych) Office Procedures Post Void Residual Post Residual Void Post Void Residual (PVR): 17 [id number] Void Residual by ultrasound Results AMB Urinalysis, Automated UA Leukoctes 0 Alesia/uL Last Edit by Kennedy Suggs on 06/27/24 08:29 UA Nitrite Last Edit by Kennedy Suggs on 06/27/24 08:29 UA Urobilinogen 0.2 mg/dL Last Edit by Kennedy Suggs on 06/27/24 08:29 UA Protein 30 mg/dL Last Edit by Kennedy Suggs on 06/27/24 08:29 UA pH 6.0 Last Edit by Kennedy Suggs on 06/27/24 08:29 UA Blood 0 Elías/uL Last Edit by Kennedy Suggs on 06/27/24 08:29 UA Specific [place] 1.025 Last Edit by Kennedy Suggs on 06/27/24 08:29 UA Ketone Last Edit by Kennedy Suggs on 06/27/24 08:29 UA Bilirubin 0 mg/dL Last Edit by Kennedy Suggs on 06/27/24 08:29 UA Glucose 0 mg/dL Last Edit by Kennedy Suggs on 06/27/24 08:29 Results Reviewed Results Reviewed: Laboratory Last Values Urine pH (Auto) 6.0 06/27/24 08:27 Specific [place] (Auto) 1.025 06/27/24 08:27 Urine Protein (Auto) 30 mg/dL 06/27/24 08:27 Glucose (UA)(Auto) 0 mg/dL 06/27/24 08:27 Urine Blood (Auto) 0 Elías/uL 06/27/24 08:27 Urine Bilirubin (Auto) 0 mg/dL 06/27/24 08:27 Urine Urobilinogen (Auto) 0.2 mg/dL 06/27/24 08:27 Leukocyte Esterase (Auto) 0 Alesia/uL 06/27/24 08:27 Date of Service: 06/05/24 EXAMINATION: US RETROPERITONEAL LIMITED (RENAL ONLY) FINDINGS: RIGHT KIDNEY: 10.2 x 5.1 x 3.8 cm (SAG x AP x TRV). The kidney is normal in size, contour, and echogenicity. Renal cortical thickness is normal. No calculi or focal parenchymal lesions. No hydronephrosis. LEFT KIDNEY: 10.2 x 5.2 x 5.3 cm (SAG x AP x TRV). The kidney is normal in size, contour, and echogenicity. Renal cortical thickness is normal. No calculi or suspicious focal parenchymal lesions. No hydronephrosis. There is a lower pole simple cyst measuring 1.0 cm. US/US renal BI IMPRESSION: 1. Aside from a simple 1.0 cm left lower pole cyst, normal kidneys. Assessment & Plan Assessment & Plan (1) Acute prostatitis: Code(s): N41.0 - Acute prostatitis Category: Medical (2) Lower urinary tract symptoms: Code(s): R39.9 - Unspecified symptoms and signs involving the genitourinary system Category: Medical (3) Enlarged prostate: Code(s): N40.0 - Benign prostatic hyperplasia without lower urinary tract symptoms Category: Medical Plan In office urinalysis results reviewed with the patient today; as noted above. Prostate massage was performed will send for microgen testing Start Bactrim, prednisone, and Mobic. Continue finasteride and Flomax as prescribed. We discussed at length potential causes of prostatitis and further treatment options and risks and benefits of these treatment options. Discussed potential for near future in office cystoscopy for further assessment evaluation. Discussed, educated, and stressed the importance of adequate hydration relation to lower urinary tract symptoms as well as overall health and well-being. Will obtain PSA status post completion of antibiotic therapy. Discussed signing medical release form to obtain previous urology records for continuity of care. Follow-up in 1-2 months with lab to be completed prior and PVR at next office visit; or sooner with any issues, concerns, and or questions. Orders: Orders AMB Urinalysis Automated Today Z13.9 - Encounter for screening, unspecified Prostate Specific Antigen Today N41.0 - Acute prostatitis AMB Post Void Residual by ultrasound Today R33.9 - Retention of urine, unspecified Medications: New prednisone 20 mg PO DAILY 5 days 5 tabs 0RF N20.0 - Calculus of kidney sulfamethoxazole-trimethoprim 800-160 mg (Bactrim DS) 1 tab PO BID 14 days 28 tabs 0RF N39.0 - Urinary tract infection, site not specified meloxicam 15 mg PO DAILY 30 days 30 tabs 0RF R10.31 - Right lower quadrant pain, R10.32 - Left lower quadrant pain Patient Instructions: The patient had an opportunity to ask questions regarding the treatment plan. All questions were answered. Physical exam, labs, and imaging were discussed and reviewed in detail. As well as risks, benefits, and discussion of treatment choices. No major barriers to understanding were identified. The patient expressed understanding and agreement with the above treatment plan. The patient was made aware they should contact our office by phone for worsening of their current condition, the appearance of new symptoms, or with any questions or concerns. Compliance is encouraged with any medications and follow up testing that is ordered. It is a privilege to be allowed the opportunity to participate in? your urological care.? Again, if you have any questions or concerns If you have any questions or concerns please do not hesitate to contact me. The office is [phone]. This note is constructed using voice recognition software. While every effort has been made to ensure accuracy residence counselor errors may have been included. Yours sincerely, ARELIS Castellanos-CARINA Coding Level of Care Code New Pt Level 4 (07767) Diagnoses Acute prostatitis N41.0 Lower urinary tract symptoms R39.9 Enlarged prostate N40.0 CPT Codes Post Residual Void - PVR CPT Code: 21949-[id number] Void Residual by ultrasound ([id number])
== END 2024-06-27 08:55 | disposition home or self-care (01) ==
PROVIDERS: PCP Internal Medicine; Visit Provider Nurse Practitioner Family
DX: N41.0 Acute prostatitis (principal); R39.9 Unspecified symptoms and signs involving the genitourinary system; N40.0 Benign prostatic hyperplasia without lower urinary tract symptoms; Z13.9 Encounter for screening, unspecified
CPT/HCPCS: 99204

== ENCOUNTER → 2024-06-27 07:35 | Outpatient (BNVA) | payer MEDICARE, MEDICAID, SELFPAY | PROVIDERS: PCP Internal Medicine; Visit Provider Nurse Practitioner Family | DX: N41.0 Acute prostatitis (principal); R39.9 Unspecified symptoms and signs involving the genitourinary system; N40.0 Benign prostatic hyperplasia without lower urinary tract symptoms | CPT/HCPCS: 51798; 81003; 99202 ==

== ENCOUNTER 2024-09-13 09:50 | Outpatient (REF) | payer MEDICARE, MEDICAID, SELFPAY ==
--- OUTSIDE RECORDS SUMMARY | 2024-09-13 11:00 | XMS_ITS | Encounter Summary ---
Author Organization [facility] Address [address] [facility] [address] [place] [address] Phone Care Team Providers Care Scientific Process Operator Name Role Phone Arsh Sharif MD Primary Care Provider [phone] Encounter Details Date Type Department Care Team (Late st Contact Info) Description 06/29/2022 Telephone [facility] [address] [place] [address] Sarah Phelps Social History Tobacco [...] that the hospital performing [facility] in [place] needs the clearance two months before his surgery date in September. Surgery is for his right knee. documented in this encounter Plan of Treatment Not on file documented as of this encounter Visit Diagnoses Not on filedocumented in this encounter Care Teams Scientific Process Operator Relationship Specialty Start Date End Date Arsh Sharif MD [address] [place] [phone] PCP - General Internal Medicine 08/24/21 documented as of this encounter
--- OUTSIDE RECORDS SUMMARY | 2024-09-13 11:00 | XMS_ITS | Encounter Summary ---
Author Organization [employer] Address 75 [facility] 7t [place] [address] Care Team Providers Care Outsole Tacker Name Role Phone Arsh Gamez MD Primary Care Provide r Reason for Visit * Reason Comments Med Refill Encounter Details Date Type Department Care Team ([facility] st Contact Info) Description 05/11/[address] [facility] MEDICINE [address] [place], [place] [phone] Arsh Gamez MD [address] [place], [place] [phone] Need for prophylactic antibiotic Social History Tobacco [...] Care Team (Late st Contact Info) Description 09/24/2024 10:00 AM EDT Office Visit [facility] ADULT [facility] [address] [place] [address] Elizabeth Cordova DMD 11/27/2024 8:00 AM EDT Office Visit [facility] ADULT DENTAL [address] [place] [address] Trena Lozano [address] [place], [place] [phone] documented as of this encounter Visit Diagnoses Diagnosis Need for prophylactic antibiotic Encounter for long-term (current) use of antibiotics documented in this encounter Additional Health Concerns Assessment Noted Time PHQ-9 Depression Total Score: 0 09/29/19 24 9:32 AM EDT documented as of this encounter Care Teams Outsole Tacker Relationship Specialty Start Date End Date Arsh Gamez MD [address] [place] [address] PCP - General Internal Medicine 12/18/13 documented as of this encounter
--- OUTSIDE RECORDS SUMMARY | 2024-09-13 11:00 | XMS_ITS | Encounter Summary ---
Author Organization [employer] Address [address] [facility] [address] 7t [place] [address] Care Team Providers Care Rubber Tubing Backer Name Role Phone Arsh Gamez MD Primary Care Provide r Reason for Visit * Reason Comments Med Refill Encounter Details Date Type Department Care Team ([facility] st Contact Info) Description 06/24/2023 Refill [facility] [address] [place], [place] [phone] Arsh Gamez MD 230 [place] [address] Pain Social History Tobacco Use Types Packs/Day [...] Description 09/24/2024 10:00 AM EDT Office Visit [facility] ADULT DENTAL [address] [place] [address] Elizabeth Cordova DMD 11/27/2024 8:00 AM EDT Office Visit [facility] ADULT DENTAL [address] [place] [address] Trena Lozano [address] [place] [address] documented as of this encounter Visit Diagnoses Diagnosis Pain Generalized pain documented in this encounter Care Teams Rubber Tubing Backer Relationship Specialty Start Date End Date Arsh Gamez MD [address] [place] [address] PCP - General Internal Medicine 12/18/13 documented as of this encounter
--- OUTSIDE RECORDS SUMMARY | 2024-09-13 11:00 | XMS_ITS | Encounter Summary ---
Author Organization [employer] Address 75 [facility] 7t [place] [address] Care Team Providers Care Sales Designer Name Role Phone Arsh Gamez MD Primary Care Provide r Reason for Visit * Reason Comments Med Refill Encounter Details Date Type Department Care Team ([facility] st Contact Info) Description 07/07/2024 Refill [facility] [address] [place], [place] [phone] Arsh Gamez MD 230 [place], [place] [phone] Benign prostatic hyperplasia with urinary frequency Social [...] Description 09/24/2024 10:00 AM EDT Office Visit [facility] ADULT DENTAL [address] [place] [address] Elizabeth Cordova DMD 11/27/2024 8:00 AM EDT Office Visit [facility] ADULT DENTAL [address] [place] [address] Trena Lozano [address] [place] [address] documented as of this encounter Visit Diagnoses Diagnosis Benign prostatic hyperplasia with urinary frequency documented in this encounter Additional Health Concerns Assessment Noted Time PHQ-9 Depression Total Score: 0 09/29/19 24 9:32 AM EDT documented as of this encounter Care Teams Sales Designer Relationship Specialty Start Date End Date Arsh Gamez MD [address] [place] [address] PCP - General Internal Medicine 12/18/13 documented as of this encounter
--- OUTSIDE RECORDS SUMMARY | 2024-09-13 11:00 | XMS_ITS | Encounter Summary ---
Author Organization [employer] [facility] Address 75 [facility] 7t [place] [address] Care Team Providers Care Manager Of Software Name Role Phone Arsh Gamez MD Primary Care Provide r Encounter Details Date Type Department Care Team (Late st Contact Info) Description 09/23/2022 Abstract [facility] MED[facility] [address] [place], [place] [phone] Arsh Gamez MD [address] [place], [place] [phone] Social History Tobacco Use Types Packs/Day Years [...] Description 09/24/2024 10:00 AM EDT Office Visit [facility] ADULT DENTAL [address] [place] [address] Elizabeth Cordova DMD 11/27/2024 8:00 AM EDT Office Visit [facility] ADULT [facility] [address] [place] [address] Trena Lozano [address] [place] [phone] documented as of this encounter Visit Diagnoses Not on filedocumented in this encounter Care Teams Manager Of Software Relationship Specialty Start Date End Date Arsh Gamez MD [address] [place] [address] PCP - General Internal Medicine 12/18/13 documented as of this encounter
--- OUTSIDE RECORDS SUMMARY | 2024-09-13 11:00 | XMS_ITS | Clinical Summary ---
Author Organization [facility] Address [address] [address] Care Team Providers Care Elephant Keeper Name Role Phone Arsh Sharif MD Primary Care Provider [phone] Allergies No known active allergies Medications meloxicam [...] Due Date Last Done Comments Pneumococcal Vaccine: 50+ Years (1 of 2 - PCV) 02/24/1979 Colorectal Cancer Screening: Annual FOBT 02/24/2009 Colorectal Cancer Screening: Colonoscopy 02/24/2009 Colorectal Cancer Screening: Sigmoidoscopy 02/24/2009 Diabetes: Ophthalmology Exam 01/23/2021 Diabetes: Pedal Pulse Checked 01/23/2021 Diabetes: Sensory Foot Exam 01/23/2021 Diabetes: Visual Foot Exam 01/23/2021 Diabetes: Hemoglobin A1C 09/14/2022 06/17/2022 Influenza Vaccine (Season Ended) 2025 03/17/2022, 05/14/2021, 01/29/2020, Additional history exists Hepatitis B Vaccine Aged Out 04/17/2001, 01/12/2000, 12/14/1999 No longer eligible based on patient's age to complete this topic Insurance Medicare Medicaid [place] Medicare Medicaid [place] Care Teams Elephant Keeper Relationship Specialty Start Date End Date Arsh Sharif MD [address] [place] [address] [id number] PCP - General Internal Medicine 08/24/21
--- OUTSIDE RECORDS SUMMARY | 2024-09-13 11:00 | XMS_ITS | Encounter Summary ---
Author Organization [employer] [facility] Address 75 [facility] 7t [place] [address] Care Team Providers Care Network Support Analyst Name Role Phone Arsh Gamez MD Primary Care Provide r Reason for Visit * Reason Onset Date Comments Appointment Request 12/30/2023 Encounter Details Date Type Department Care Team ([facility] st Contact Info) Description 12/30/2023 Telephone [facility] MEDICINE [address] [place], [place] [phone] Arsh Gamez MD [address] [place], [place] [phone] Appointment Request Social History Tobacco Use Types [...] Description 09/24/2024 10:00 AM EDT Office Visit [facility] ADULT DENTAL [address] [place] [address] Elizabeth Cordova DMD 11/27/2024 8:00 AM EDT Office Visit [facility] ADULT [facility] [address] [place] [address] Trena Lozano [address] [place], [place] [phone] documented as of this encounter Visit Diagnoses Not on filedocumented in this encounter Additional Health Concerns Assessment Noted Time PHQ-9 Depression Total Score: 0 09/29/19 24 9:32 AM EDT documented as of this encounter Care Teams Network Support Analyst Relationship Specialty Start Date End Date Arsh Gamez MD [address] [place] [address] PCP - General Internal Medicine 12/18/13 documented as of this encounter
--- OUTSIDE RECORDS SUMMARY | 2024-09-13 11:00 | XMS_ITS | Encounter Summary ---
Author Organization [employer] Address 75 [facility] 7t [place] [address] Care Team Providers Care Pumper Hand Name Role Phone Arsh Gamez MD Primary Care Provide r Reason for Visit * Reason Comments Med Refill Encounter Details Date Type Department Care Team ([facility] st Contact Info) Description 06/20/2023 Refill [facility] MEDICINE [address] [place], [place] [phone] Arsh Gamez MD [address] [place], [place] [phone] Pain Social History Tobacco Use Types Packs/Day [...] 10:00 AM EDT Office Visit [facility] ADULT D[facility]AL [address] [place] [address] Elizabeth Cordova DMD 11/27/2024 8:00 AM EDT Office Visit [facility] ADULT DENT[facility] [address] [place] [address] Trena Lozano [address] [place], [place] [phone] documented as of this encounter Visit Diagnoses Diagnosis Pain Generalized pain documented in this encounter Care Teams Pumper Hand Relationship Specialty Start Date End Date Arsh Gamez MD [address] [place] [address] PCP - General Internal Medicine 12/18/13 documented as of this encounter
--- OUTSIDE RECORDS SUMMARY | 2024-09-13 11:00 | XMS_ITS | Encounter Summary ---
Author Organization [employer] Address 75 [facility] 7t [place] [address] Care Team Providers Care Underground Mine Superintendent Name Role Phone Arsh Gamez MD Primary Care Provide r Reason for Visit * Reason Comments Med Refill Encounter Details Date Type Department Care Team ([facility] st Contact Info) Description 03/25/2024 Refill [facility] ADULT D[facility] [address] [place], [place] [phone] Rolando Denton, DDClaudia [address] [place] [address] Social History Tobacco Use Types Packs/Day Years [...] Description 09/24/2024 10:00 AM EDT Office Visit [facility] ADULT DENTAL [address] [place] [address] Elizabeth Cordova DMD 11/27/2024 8:00 AM EDT Office Visit [facility] ADULT D[facility] [address] [place] [address] Trena Lozano [address] [place] [address] documented as of this encounter Visit Diagnoses Not on filedocumented in this encounter Additional Health Concerns Assessment Noted Time PHQ-9 Depression Total Score: 0 09/29/19 24 9:32 AM EDT documented as of this encounter Care Teams Underground Mine Superintendent Relationship Specialty Start Date End Date Arsh Gamez MD [address] [place] [address] PCP - General Internal Medicine 12/18/13 documented as of this encounter
--- OUTSIDE RECORDS SUMMARY | 2024-09-13 11:00 | XMS_ITS | Encounter Summary ---
Author Organization [employer] Address [address] [facility] [address] [place] [address] Care Team Providers Care Hot Metal Mixer Operator Helper Name Role Phone Arsh Gamez MD Primary Care Provide r Reason for Visit * Reason Comments Med Refill Encounter Details Date Type Department Care Team ([facility] st Contact Info) Description 12/28/2023 Refill [facility] [address] [place], [place] [phone] Felicita Beasley, ANP [address] [place], [place] [phone] Benign prostatic hyperplasia with urinary frequency Social [...] 10:00 AM EDT Office Visit [facility] ADULT DENTAL [address] [place] [address] Elizabeth Cordova DMD 11/27/2024 8:00 AM EDT Office Visit [facility] ADULT DENT[facility] [address] [place] [address] Trena Lozano [address] [place] [address] documented as of this encounter Visit Diagnoses Diagnosis Benign prostatic hyperplasia with urinary frequency documented in this encounter Additional Health Concerns Assessment Noted Time PHQ-9 Depression Total Score: 0 09/29/19 24 9:32 AM EDT documented as of this encounter Care Teams Hot Metal Mixer Operator Helper Relationship Specialty Start Date End Date Arsh Gamez MD [address] [place] [address] PCP - General Internal Medicine 12/18/13 documented as of this encounter
--- OUTSIDE RECORDS SUMMARY | 2024-09-13 11:00 | XMS_ITS | Encounter Summary ---
Author Organization [employer] Address [address] [facility] 7t [place] [address] Care Team Providers Care Tapper Helper Name Role Phone Arsh Gamez MD Primary Care Provide r Reason for Visit * Reason Onset Date Comments Med Change Request Prior Authorization 03/10/2023 SUMAtriptan (Imitrex) 50 MG tablet Encounter Details Date Type Department Care Team ([facility] st Contact Info) Description 03/10/2023 Refill [facility] MEDICINE [address] [place], [place] [phone] Arsh Gamez MD 230 [place], [place] [phone] Social History Tobacco Use Types Packs/Day Years [...] Description 09/24/2024 10:00 AM EDT Office Visit [facility] ADULT DENTAL [address] [place] [address] Elizabeth Cordova DMD 11/27/2024 8:00 AM EDT Office Visit [facility] ADULT DENT[facility] [address] [place] [address] Trena Lozano [address] [place] [address] documented as of this encounter Visit Diagnoses Not on filedocumented in this encounter Care Teams Tapper Helper Relationship Specialty Start Date End Date Arsh Gamez MD [address] [place] [address] PCP - General Internal Medicine 12/18/13 documented as of this encounter
--- OUTSIDE RECORDS SUMMARY | 2024-09-13 11:00 | XMS_ITS | Encounter Summary ---
Author Organization [email or web address] [facility] Address [address] [facility] 7t [place] [address] Care Team Providers Care Net Technical Architect Name Role Phone Arsh Gamez MD Primary Care Provide r Reason for Visit * Reason Onset Date Comments rescheduled appt mistakenly cancelled 05/17/2024 Encounter Details Date Type Department Care Team (Late st Contact Info) Description 05/17/2024 Telephone [facility] ADULT DENTAL [address] [place], [place] [phone] Nickie, Sheyla [address] [place] [address] rescheduled appt mistakenly cancelled Social History Tobacco [...] Description 09/24/2024 10:00 AM EDT Office Visit [facility] ADULT DENT[facility] [address] [place] [address] Elizabeth Cordova DMD 11/27/2024 8:00 AM EDT Office Visit [facility] ADULT D[facility] [address] [place] [address] Trena Lozano [address] [place] [address] documented as of this encounter Visit Diagnoses Not on filedocumented in this encounter Additional Health Concerns Assessment Noted Time PHQ-9 Depression Total Score: 0 09/29/19 24 9:32 AM EDT documented as of this encounter Care Teams Net Technical Architect Relationship Specialty Start Date End Date Arsh Gamez MD 230 [place] [address] PCP - General Internal Medicine 12/18/13 documented as of this encounter
[2024-09-13 11:01] LABS: Anion Gap 11 (12-20); Blood Urea Nitrogen 23 mg/dL (9-16); Calcium 9.9 mg/dL (8.4-10.2); Carbon Dioxide 31 mmol/L (22-29); Chloride 103 mmol/L (96-108); Estimated Glomerular Filt Rate > 60; Glucose Random 103 mg/dL (60-115); Potassium 3.8 mmol/L (3.3-5.1); Sodium 141 mmol/L (135-145)
--- OUTSIDE RECORDS SUMMARY | 2024-09-13 11:01 | XMS_ITS | Data Portability ---
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 shoulder region 29400531 M25.829 [id number] Afua Alexander OT Physical Therapy, [address] [address] 1 06/19/2015 08:51:10 06/19/2015 13:39:11 Pain of shoulder region 05742687 M25.327 [id number] Afua Alexander OT Physical Therapy, [address] [address] 1 07/01/2015 08:11:27 07/01/2015 13:25:18 Pain of shoulder region 28715420 M25.788 [id number] Afua Alexander OT Physical Therapy, [address] [address] 1 07/03/2015 08:05:53 07/03/2015 13:20:43 Pain of shoulder region 88348269 M25.624 [id number] Afua Alexander, OT Physical Therapy, [address] [address]580 1 07/10/2015 08:21:46 07/10/2015 15:21:32 Pain of shoulder region 21496651 M25.733 [id number] Afua Alexander, OT Physical Therapy, [address] [address]173 1 07/15/2015 08:47:34 07/15/2015 15:26:02 Pain of shoulder region 53897528 M25.140 [id number] Afua Alexander, OT Physical Therapy, [address] [address] 1 07/17/2015 08:38:46 07/17/2015 14:08:15 Pain of shoulder region 39981984 M25.246 [id number] Afua Alexander, OT Physical Therapy, [address] [address] 1 07/29/2015 08:45:51 07/29/2015 10:02:26 Pain of shoulder region 76693913 M25.804 [id number] Afua Alexander, OT Physical Therapy, [address] [address]660 1 07/31/2015 08:34:35 07/31/2015 13:09:27 Pain of shoulder region 55845428 M25.813 [id number] Afua Alexander, OT Physical Therapy, [address] [address]31 1 08/07/2015 08:55:08 08/07/2015 16:51:16 Pain of shoulder region 53033749 M25.593 [id number] Afua Alexander, OT Physical Therapy, [address] [address] 1 09/29/2015 08:27:53 09/29/2015 13:26:18 Pain of shoulder region 55801616 M25.853 [id number] Afua Alexander, OT Physical Therapy, [address] [address] 1 10/02/2015 08:55:48 10/02/2015 11:01:55 Pain of shoulder region 63561024 M25.009 [id number] Afua Alexander, OT Physical Therapy, [address] [address]161 1 10/09/2015 08:40:54 10/09/2015 14:11:25 Pain of shoulder region 45809242 M25.993 [id number] Afua Alexander, OT Physical Therapy, [address] [address] 1 10/15/2015 08:56:45 10/15/2015 11:59:15 Pain of shoulder region 58339272 M25.983 [id number] Ailin Denise, PT Physical Therapy, [address] [address] 1 12/30/2015 13:05:30 01/01/2016 13:09:18 Knee pain 00688737 M25.904 [id number] Ailin Denise, PT Physical Therapy, [address] [address] 1 01/22/2019 16:12:20 01/23/2019 14:35:11 Neck pain 71236888 M54.2 Knee pain 25337918 M25.5 61 [id number] Ailin Denise, PT Physical Therapy, [address] [address] 1 01/23/2019 14:06:17 01/24/2019 08:02:25 Knee pain 77043440 M25.561 Neck pain 04963448 M54.2 [id number] Ailin Denise PT Physical Therapy, [address] [address] 1 01/29/2019 16:20:45 01/30/2019 08:15:17 Knee pain 06317844 M25.561 Neck pain 99772550 M54.2 [id number] Ailin Denise, PT Physical Therapy, [address] [address] 1 02/05/2019 08:43:24 02/05/2019 15:06:38 Knee pain 06996180 M25.561 Neck pain 98516549 M54.2 [id number] Ailin Denise, PT Physical Therapy, [address] [address] 1 02/13/2019 07:56:20 02/13/2019 09:23:33 Knee pain 69918413 M25.561 Neck pain 83734676 M54.2 [id number] Ailin Denise, PT Physical Therapy, [address] [address] 1 02/21/2019 08:06:59 02/21/2019 13:25:09 Knee pain 00896968 M25.037 [id number] Ailin Denise, PT Physical Therapy, [address] [address]-684 1 02/28/2019 08:15:11 02/28/2019 14:51:10 Knee pain 82611626 M25.371 [id number] Ailin Denise, PT Physical Therapy, [address] [address] 1 03/05/2019 08:42:23 03/05/2019 09:33:49 Knee pain 28316458 M25.111 [id number] Ailin Denise, PT Physical Therapy, [address] [address] 1 03/29/2019 13:33:21 03/29/2019 14:33:43 Knee pain 75018647 M25.561 Neck pain 34984168 M54.2 [id number] Ailin Denise, PT Physical Therapy, [address] [address] 05/02/2019 14:42:52 05/02/2019 15:35:16 Knee pain 73916397 M25.209 [id number] Kalpesh Vitale MD ASP, [address] [address] 1 06/11/2020 10:03:01 06/11/2020 12:25:29 Health Concerns Section Related Observation LastModified by Organization Detai ls LastModified Time None Recorded Concern Status LastModified by Organization Details LastModified Time None Recorded Advance Directives Directive None Recorded Payers Encounter Date Sequence Insurance Name Policy Number Policy Fagan Covered Member ID Fagan Member ID Guarantor Name 02/28/2019 1 [place] [employer] Jakob Scott [id number] Jakob Zimmer 02/28/2019 2 MED[place]ID[place]: [facility] Jakob Zimmer [id number] Jakob Zimmer 03/05/2019 1 [place] [employer] Jakob Scott [id number] Jakob Zimmer 03/05/2019 2 [place] Jakob Zimmer [id number] Jakob Zimmer 03/29/2019 1 [place] [employer] Jakob Machado Ro [id number] Jakob Zimmer 03/29/2019 2 [place] Jakob Zimmer [id number] Jakob Zimmer 05/02/2019 1 [place] [employer] Jakob Machado Ro [id number] Jakob Zimmer 05/02/2019 2 [place] Jakob Zimmer [id number] Jakob Zimmer 06/11/2020 1 [place] [employer] Jakob Machado Ro [id number] Jakob Zimmer 06/11/2020 2 [place] Jakob Zimmer [id number] Jakob Zimmer
--- OUTSIDE RECORDS SUMMARY | 2024-09-13 11:01 | XMS_ITS | Encounter Summary ---
Author Organization [employer] Address [address] [facility] [address] [place] [address] Care Team Providers Care Asset Management Coordinator Name Role Phone Arsh Gamez MD Primary Care Provide r Reason for Visit * Reason Comments Med Refill Encounter Details Date Type Department Care Team ([facility] st Contact Info) Description 04/06/2024 Refill [facility] ADULT DENTAL [address] [place], [place] [phone] Power Davis, OLIVA [address] [place] [address] Social History Tobacco Use Types Packs/Day Years [...] Description 09/24/2024 10:00 AM EDT Office Visit [facility] ADULT DENTAL [address] [place] [address] Elizabeth Cordova DMD 11/27/2024 8:00 AM EDT Office Visit [facility] ADULT DENTAL [address] [place] [address] Trena Lozano [address] [place] [address] documented as of this encounter Visit Diagnoses Not on filedocumented in this encounter Additional Health Concerns Assessment Noted Time PHQ-9 Depression Total Score: 0 09/29/19 24 9:32 AM EDT documented as of this encounter Care Teams Asset Management Coordinator Relationship Specialty Start Date End Date Arsh Gamez MD [address] [place] [address] PCP - General Internal Medicine 12/18/13 documented as of this encounter
--- OUTSIDE RECORDS SUMMARY | 2024-09-13 11:01 | XMS_ITS | Encounter Summary ---
Author Organization [employer] [facility] Address [address] [facility] 7[address] [place] [address] Care Team Providers Care Central Sterile Supply Technician Name Role Phone Arsh Gamez MD Primary Care Provide r Encounter Details Date Type Department Care Team (Late st Contact Info) Description 06/14/2022 Orders Only [facility] [address] [place], [place] [phone] Sarah Pineda LPN Social History Tobacco Use [...] Description 09/24/2024 10:00 AM EDT Office Visit [facility] ADULT DENTAL [address] [place], [place] [phone] Elizabeth Cordova DMD 11/27/2024 8:00 AM EDT Office Visit [facility] ADULT DENTAL [address] [place], [place] [phone] Trena Lozano [address] [place] [address] documented as of this encounter Procedures Procedure [...] EST documented in this encounter Results * Goodsprings/Lambda Light Chains, Free with Ratio (06/17/2022 10:30 AM EST) [place] Light Chain, Free, Serum 303 176 - 443 mg/dL [facility] Lambda Light Chain, Free, Serum 163 91 - 240 mg/dL [facility] Goodsprings/Lambda Light Chains Free With Ratio, Serum 1.86 1.29 - 2.55 [facility] Comment:This assay provides a measurement [...] myeloma, lymphoproliferative disorders, andamyloidosis.THIS TEST WAS PERFORMED AT:[employer] [facility] [id number] [place] [address]HSNKMDELMA SINGER MD,PHD,ADRIENNE 06/17/2022 10:3 0 AM EST 06/18/2022 4:58 PM EST [facility] External Provider LAB BLO OD ORDERABLES Final Result Performing Organization Address [facility] Co de Phone Number [facility] [address] [place] [address] [phone] * Albumin, Random Urine W/Creatinine (06/17/2022 10:30 AM EST) Creatinine, Urine 123.67 mg/dL [facility] Microalbumin Urine 42.0 mg/L [facility] Microalbum Creatinine Ratio Ur 33.9 ug/mg cr [facility] Comment:Albumin/Creatinine R atio Reference Ranges: Normal: < 30 ug/mg creatinine Microalbuminuria: 30 - 300 ug/mg creatinineClinical Albuminuria: > 300 ug/mg creatinine 06/17/2022 10:3 0 AM EST 06/17/2022 11:33 AM EST [facility] External Provider LAB URI NE ORDERABLES Final Result Performing Organization Address [facility]/ZIP Co de Phone Number [facility] [address] [place] [address] [phone] * Protein Electrophoresis and Total Protein, Random Urine (06/17/2022 10:15 AM EST) PEU-Random Urine Creatinine 121 20 - 320 mg/dL [facility] PEU-Random Urine Protein 14 5 - 25 mg/dL [facility] PEU-Naalehu. Prot/Creat Ratio 116 25 - 148 mg/g creat [facility] PEU-Random Urine Albumin 100 % [facility] PEU-Random Urine A1 Globulin 0 % [facility] PEU-Random Urine A2 Globulin 0 % [facility] PEU-Random Urine Beta Globulin 0 % [facility] PEU-Random Ur. Gamma Globulin 0 % [facility] PEU Ran-Abn Protein Band 1 TNP [facility] PEU Ran-Abn Protein Band 2 TNP [facility] PEU Ran-Abn [facility] Band 3 [facility] PEU-Random Urine Interpret. SEE NOTE [facility] Comment:Normal PatternTHIS T EST WAS PERFORMED AT:[employer] [address] ([facility])[place] [address]RUTGATERRY JASON MD Protein/Creatini ne Ratio 0.116 0.025 - 0.148 [facility] Comment:Result Units: mg/mg creat 06/17/2022 10:1 5 AM EST 06/18/2022 3:03 PM EST [facility] External Provider LAB URI NE ORDERABLES Final Result Performing Organization Address [facility] Co de Phone Number [facility] [address] [place] [address] [phone] * Immuniofixation, Urine (06/17/2022 10:15 AM EST) DELVIN Interpretation [facility] Comment:No monoclonal protei ns detected.THIS TEST WAS PERFORMED AT:[facility] [place] [address] ([facility])[place] [address]RYJDBJULIET AJSON MD 06/17/2022 10:1 5 AM EST 06/18/2022 3:03 PM EST [facility] External Provider LAB URI NE ORDERABLES Final Result Performing Organization Address City/State/[facility] de Phone Number [facility] [address] [place] [phone] * Hepatitis C Viral RNA, Quantitative, Real-Time PC (06/17/2022 10:14 AM EST) [facility] Hepatitis C Viral Load <15 NOT DETECTED NOT DETECTED IU/mL [facility] HCV Log PCR <1.18 NOT DETECTED NOT DETECTED Log IU/mL [facility] Comment:This test was perfor med using Real-Time Polymerase ChainReaction.Reportable Range: 15 IU/mL to 100,000,000 IU/mL(1.18 Log IU/mL to 8.00 Log IU/mL).The analytical performance characteristics of thisassay have been determined by [employer].The modifications have not been cleared or approved bythe FDA. This assay has been validated pursuant to theCLIA regulations and is used for clinical purposes.For more information on this test, go to:http://education.Needl/faq/IIA10c3(This link is being provided for informational/educational purposes only.)THIS TEST WAS PERFORMED AT:[employer] [facility] [address] ([address])[place] [address]ZIDAZTERRY JASON MD 06/17/2022 10:1 4 AM EST 06/17/2022 10:14 AM EST [facility] External Provider LAB BLO OD ORDERABLES Final Result Performing Organization Address [facility] Co de Phone Number [facility] [address] [place] [phone] * Protein Electrophoresis and [place]springs/Lambda Light Chains (06/17/2022 10:14 AM EST) [facility] Prot Elec - Total Protein 7.2 6.1 - 8.1 g/dL [facility] Prot Elec - Albumin 4.2 3.8 - 4.8 g/dL [facility] Prot Elec - Alpha1 0.3 0.2 - 0.3 g/dL [facility] Prot Elec - Alpha2 0.6 0.5 - 0.9 g/dL [facility] Prot Elec - Beta 1 0.5 0.4 - 0.6 g/dL [facility] Prot Elec - Beta 2 0.4 0.2 - 0.5 g/dL [facility] Prot Elec - Gamma 1.2 0.8 - 1.7 g/dL [facility] PES - Abn Protein Band 1 TNP [facility] PES-Abn Protein Band 2 TNP [facility] PES-Abn Protein Band 3 [facility] Prot Elec - Interpretation SEE NOTE [facility] Comment:Normal Electrophoret ic PatternTHIS TEST WAS PERFORMED AT:[facility] [place] [address] ([facility])[place] [address]RYJWRTERRY JASON MD 06/17/2022 10:1 4 AM EST 06/17/2022 10:14 AM EST [facility] External Provider LAB BLO OD ORDERABLES Final Result [facility] [address] [place] [phone] * (ABNORMAL) Immunofixation, Serum (06/17/2022 10:14 AM EST) IMMUNOGLOBULIN G 1189 600 - 1540 mg/dL [facility] IMMUNOGLOBULIN A 355(A) 70 - 320 mg/dL [facility] Immunoglobulin M 145 50 - 300 mg/dL [facility] Comment:THIS TEST WAS PERFOR MED AT:[facility] [place] [address] ([facility])[place] [address]UKZZIJULIET JASON MD Immunofixation Result SEE NOTE [facility] Comment:Normal pattern. No m onoclonal proteins detected. 06/17/2022 10:1 4 AM EST 06/18/2022 2:59 PM EST [facility] External Provider LAB BLO OD ORDERABLES Final Result Performing Organization Address [facility] Co de Phone Number [facility] [address] [place] [phone] * Hepatitis C Antibody Reflex (06/17/2022 10:14 AM EST) Hepatitis C Antibody Nonreactive Nonreactive [facility] Comment:Antibodies to HCV no t detected; does not exclude early acuteHCV infection. 06/17/2022 10:1 4 AM EST 06/17/2022 10:14 AM EST us [facility] External Provider LAB BLO OD ORDERABLES Final Result Performing Organization Address [facility] Co de Phone Number [facility] [address] [place] [phone] * Lipid Panel with Reflex to Direct LDL (06/17/2022 10:14 AM EST) Triglycerides 154 mg/dL [facility] Comment:Desirable Triglyceri de: less than 150 mg/dLBorderline High Triglyceride 150-199 mg/dLHigh Triglyceride: 200-499 mg/dLVery High Triglyceride: greater than or equal to 5OO mg/dL Cholesterol 176 mg/dL [facility] Comment:Desirable Cholestero l: less than 200 mg/dLBorderline High Cholesterol: 200-239 mg/dLHigh Cholesterol: greater than 239 mg/dL LDL Cholesterol Calculated 119 mg/dl [facility] Comment:Desirable LDL: less than 100 mg/dLNear Optimal/Above Optimal LDL: 110- 129 mg/dLBorderline High LDL: 130-159 mg/dLHigh LDL: 160-189 mg/dLVery High LDL: greater than or equal to 190 mg/dL HDL Cholesterol 27 mg/dL [facility] Comment:Desirable HDL: great er than 40 mg/dL Note: This HDL assay may give artificially low results in patients with liver disease. 06/17/2022 10:1 4 AM EST 06/17/2022 10:14 AM EST [facility] External Provider LAB BLO OD ORDERABLES Final Result Performing Organization Address [facility]/ZIP Co de Phone Number [facility] [address] [place] [phone] * (ABNORMAL) Basic Metabolic Panel (06/17/2022 10:14 AM EST) Pathologist [facility] Sodium 139 135 - 145 mmol/L [facility] Potassium 4.1 3.3 - 5.1 mmol/L [facility] Chloride 107 96 - 108 mmol/L [facility] Carbon Dioxide 25 22 - 29 mmol/L [facility] Anion Gap 11(L) 12 - 20 [facility] Urea Nitrogen (BUN) 19(H) 9 - 16 mg/dL [facility] Creatinine, Serum 1.20 0.5 - 1.4 mg/dL [facility] Estimated Glomerular Filt Rate >60 [facility] Comment:NOTE: For -Am erican individuals, multiply the result by 1.210.Chronic Kidney Disease: Estimated GFR < 60 mL/min/1.82q1Iwosug Kidney Disease: Estimated GFR < 15 mL/min/1.73m2 Glucose 93 60 - 115 mg/dL [facility] Calcium 9.2 8.4 - 10.2 mg/dL [facility] 06/17/2022 10:1 4 AM EST 06/17/2022 10:14 AM EST [facility] External Provider LAB BLO OD ORDERABLES Final Result [facility] [address] [place] [phone] * CBC (06/17/2022 10:14 AM EST) White Blood Count 5.9 4.8 - 10.8 X10*3/uL [facility] Red Blood Count 5.41 4.60 - 5.80 X10*6/uL [facility] Hemoglobin 15.7 14.0 - 18.0 g/dl [facility] Hematocrit 45.5 42.0 - 52.0 % [facility] Mean Corpuscular Volume 84.1 80.0 - 98.0 fL [facility] Mean Corpuscular Hemoglobin 29.0 27.0 - 33.0 pg [facility] Mean Corpuscular HGB Conc 34.5 31.0 - 36.0 g/dl [facility] Red Cell Distribution Width 13.7 11.0 - 16.0 % [facility] Platelet Count 209 160 - 400 X10*3/uL [facility] Mean Platelet Volume 9.9 9.4 - 12.4 fL [facility] NRBC Pct Auto 0.0 0.0 - 0.2 /100WBC [facility] NRBC Abs Auto 0.000 0.0 - 0.012 X10*3/uL [facility] 06/17/2022 10:1 4 AM EST 06/17/2022 10:14 AM EST us [facility] External Provider LAB BLO OD ORDERABLES Final Result Performing Organization Address City/State/[facility] Co de Phone Number [facility] [address] [place] [phone] documented in this encounter Visit Diagnoses Not on filedocumented in this encounter Care Teams Central Sterile Supply Technician Relationship Specialty Start Date End Date Arsh Gamez MD [address] [place] [phone] PCP - General Internal Medicine 12/18/13 documented as of this encounter
--- OUTSIDE RECORDS SUMMARY | 2024-09-13 11:01 | XMS_ITS | Clinical Summary ---
Author Organization [employer] Address [address] [facility] 7t [place] [address] Care Team Providers Care Neurophysiology Tech Name Role Phone Arsh Gamez MD Primary Care Provide r Allergies Active Allergy Reactions Criticality Noted Date Comments Peanut-Containing Drug Products Anaphylaxis High Medications amLODIPine (Norvasc) 5 MG tablet TOME MARCELINA TABLETA ROSALVA LOS D 3 Active hydrALAZINE (Apresoline) 50 MG tablet Take 1.5 tablets by mouth every 8 (eight) hours. 1 Active tamsulosin (Flomax) 0.4 MG 24 hr capsule Take 1 capsule by mouth at bedtime. 3 Active fluticasone (Flonase) 50 MCG/ACT nasal sprayIndications: [...] complication, without long-term current use of insulin ([facility]) TEST BLOOD SUGAR ONCE DAILY 100 strip 3 4 Active amoxicillin (Amoxil) 500 MG capsule Take 4 caps 1 hour prior dental procedure 12 capsule 5 Active omeprazole (PriLOSEC) [address] capsule TOME MARCELINA CAPSULA DOS VECES AL JOHN PAUL BEFORE A MEAL 180 capsule 3 5 Active metFORMIN XR (Glucophage-XR) 500 MG 24 hr tablet TOME MARCELINA TABLETA TODOS LOS [place] PARCEL POST DELIVERY 90 tablet 3 5 Active Active Problems Problem Noted Date [...] work yet and needs to apply to [employer] (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 Arrington last seen 10/02/2012. He did not think his blood work was indicative of SLE. last seen 12/05/2012 Chronic lower back pain 12/18/2021 Assessment & Plan (06/16/2022 1:58 PM EST): Pt had a previous Hx of right alfonso laminectomy defect at L4-L5 and L5 to S1 most recent MRI of the LS spine done at [facility] on 02/18/2000 showed no evidence of recurrent [...] Pt back to see Dr Campbell ( acid etch operator) Pt stopped Amlodipine due GI side effects [...] Pt back to see Dr Campbell ( acid etch operator) Pt stopped Amlodipine due GI side effects [...] Pt back to see Dr Campbell ( acid etch operator) Pt stopped Amlodipine due GI side effects and dizziness [facility] 06/2022 Normal. Will repeat Plan: continue current regimen Follow up in 4 months in person Assessment & Plan (10/19/2022 8:29 AM EDT): Televisit BP controlled per his report He is on: lisinopril 40. hydralazine 50 mg 2 tabs po TID , Metoprolol succinate ER 25 mg every day, HCTZ discontinued due to pancreatitis Pt back to see Dr Campbell ( acid etch operator) Pt stopped Amlodipine due GI side effects and dizziness [facility] 06/2022 Normal Plan: continue current regimen Follow up in 4 months Assessment & Plan (06/16/2022 1:52 PM EST): Here for a f/u BP controlled He is on: lisinopril 40. hydralazine 50 mg 2 tabs po TID , Metoprolol succinate ER 25 mg qd a HCTZ discontinued due to pancreatitis Pt back to see Dr Campbell ( acid etch operator) Pt stopped Amlodipine due GI side effects and dizziness Plan: continue current regimen Follow up in 4 months Gastroesophageal reflux disease without esophagi tis 02/12/2014 Assessment & Plan (06/16/2022 2:01 PM EST): Patient under the care [facility]. Last seen by Dr Vitale [...] Encounters Date Type Department Care Team Description 07/07/2024 Refill [facility] [address] [place] [address] Arsh Gamez MD Benign prostatic hyperplasia with urinary frequency 07/03/2024 Refill [facility] [address] [place] [address] Gloria Parrish MD 06/20/2024 3:15 PM EST Office Visit [facility]ULT [facility]AL [address] [place], [place] [address] Christian Ortiz DMD from Last 3 Months Immunizations Name Administration [...] Description 09/24/2024 10:00 AM EDT Office Visit [facility] ADULT DENTAL [address] [place] [address] Elizabeth Cordova DMD 11/27/2024 8:00 AM EDT Office Visit [facility] [address] [place] [address] [address]rena [address] [place] [address] [phone] Health Maintenance Due Date Last Done Comments [...] years 1-dose series) 2020 COVID-19 Vaccine ( - season) 2024 04/29/2021, 07/22/2020, 06/24/2020 Influenza Vaccine (#1) 2024 , 03/17/2022, 05/14/2021, Additional history exists Depression Screening [...] exists Tobacco Screening 05/29/2025 05/29/2024 Colonoscopy 06/11/2025 06/11/2020, 06/11/2020 Colorectal Cancer Screening 06/11/2025 DTaP/Tdap/Td Vaccines [...] OR PHYSICIAN Routine 06/20/2024 3:15 PM EST Full PROPHYLAXIS - ADULT Routine 05/29/2024 8:00 AM EST Dental plaque Dental calculus PERIODIC ORAL EVALUATION - ESTABLISHED PATIENT Routine 05/29/2024 8:00 AM EST LIPID PANEL, STANDARD Routine 05/23/2024 8:09 AM EST Hypertriglyceridemia POCT GLYCATED HEMOGLOBIN, TOTAL Routine 05/03/2024 9:01 AM EST Type 2 diabetes mellitus without complication, without long-term current use of insulin ([facility]) CREATININE, RANDOM URINE Routine 04/19/2024 8:17 AM EST BITEWING - SINGLE RADIOGRAPHIC IMAGE Routine 01/12/2024 2:00 PM EDT Tipped teeth Symptomatic periapical periodontitis PANORAMIC RADIOGRAPHIC IMAGE Routine 01/11/2024 1:00 PM EDT HEPATITIS C ANTIBODY REFLEX Routine 06/17/2022 10:14 AM EST HM COLONOSCOPY Routine 06/11/2020 8:26 AM EST from Last 3 Months or Most Recently Relevant to Health Maintenance Results * (ABNORMAL) Lipid Panel, Standard (05/23/2024 8:09 AM EST) Triglycerides 127 <150 mg/dL [facility] Comment:Desirable Triglyceri de: less than 150 mg/dLBorderline High Triglyceride 150-199 mg/dLHigh Triglyceride: 200-499 mg/dLVery High Triglyceride: greater than or equal to 5OO mg/dL Cholesterol 153 <200 mg/dL [facility] Comment:Desirable Cholestero l: less than 200 mg/dLBorderline High Cholesterol: 200-239 mg/dLHigh Cholesterol: greater than 239 mg/dL LDL Cholesterol Calculated 97 <100 mg/dL [facility] Comment:Desirable LDL: less than 100 mg/dLNear Optimal/Above Optimal LDL: 110- 129 mg/dLBorderline High LDL: 130-159 mg/dLHigh LDL: 160-189 mg/dLVery High LDL: greater than or equal to 190 mg/dL HDL Cholesterol 31(L) >40 mg/dL [facility] Comment:Desirable HDL: great er than 40 mg/dL Note: This HDL assay may give artificially low results in patients with liver disease. Blood Venous blood specimen / Unknown 05/23/2024 8:09 AM EST 05/23/2024 8:09 AM EST Arsh Holliday MD LAB BLOOD ORDERABLES Final Result [facility] [address] [place] [phone] * POCT HGB A1C (05/03/2024 9:01 AM EST) Hemoglobin A1C 5.8 4.0 - 6.0 % QC Media Lot # [id number] Lot# Expiration Date [id number] Blood 05/03/2024 9:01 AM EST Arsh Holliday MD POINT OF CARE TEST EN TER/EDIT ORDERABLES Final Result * Creatinine, Random Urine (04/19/2024 8:17 AM EST) Creatinine, Urine 198.06 mg/dL [facility] 04/19/2024 8:17 AM EST 04/19/2024 11:13 AM EST Generic External Data Provider LAB URINE ORDERAB LES Final Result Performing Organization Address [facility]/ZIP Co de Phone Number [facility] [address] [place] [address] [phone] * Hepatitis C Antibody Reflex (06/17/2022 10:14 AM EST) Hepatitis C Antibody Nonreactive Nonreactive [facility] Comment:Antibodies to HCV no t detected; does not exclude early acuteHCV infection. 06/17/2022 10:1 4 AM EST 06/17/2022 10:14 AM EST [facility] External Provider LAB BLO OD ORDERABLES Final Result Performing Organization Address [facility] Co de Phone Number [facility] [address] [place] [phone] * Hm Colonoscopy (06/11/2020 8:26 AM EST) Colonoscopy Normal Normal Historical Provider HEALTH MAINTENANCE Edited Result - Final from Last 3 Months or Most Recently Relevant to Health Maintenance Insurance MEDICARE [facility] MEDICAID STAND ADULT Care Teams Neurophysiology Tech Relationship Specialty Start Date End Date Arsh Gamez MD [address] [place] [address] PCP - General Internal Medicine 12/18/13
--- OUTSIDE RECORDS SUMMARY | 2024-09-13 11:01 | XMS_ITS | Encounter Summary ---
Author Organization [facility] Address [address] [facility] 7t [place] [address] Care Team Providers Care Hard Candy Batch Mixer Name Role Phone Arsh Gamez MD Primary Care Provide r Encounter Details Date Type Department Care Team (Late st Contact Info) Description 07/16/2022 Abstract [facility]ULT [facility] [address] [place], [place] [phone] Power Davis DMD [address] [place] [address] Social History Tobacco Use Types Packs/Day Years [...] Description 09/24/2024 10:00 AM EDT Office Visit [facility] [address] [place] [address] Elizabeth Cordova DMD 11/27/2024 8:00 AM EDT Office Visit [facility] [address] [place] [address] Trena Lozano [address] [place], [place] [phone] documented as of this encounter Visit Diagnoses Not on filedocumented in this encounter Care Teams Hard Candy Batch Mixer Relationship Specialty Start Date End Date Arsh Gamez MD [address] [place] [address] PCP - General Internal Medicine 12/18/13 documented as of this encounter
--- OUTSIDE RECORDS SUMMARY | 2024-09-13 11:01 | XMS_ITS | Encounter Summary ---
Author Organization [facility] Address [address] [facility] 7t [place] [address] Care Team Providers Care Early Childhood Aide Classroom Name Role Phone Arsh Gamez MD Primary Care Provide r Encounter Details Date Type Department Care Team (Latest Contact Info) Description 07/09/2019 Abstract [facility] CONVERSIONS Dental, Provider, DDS Social History [...] [facility] ADULT D[facility] [address] [place], [place] [phone] Elizabeth Cordova DMD 11/27/2024 8:00 AM EDT Office Visit [facility]ULT [facility] [address] [place] [address] Trena Lozano [address] [place], [place] [phone] documented as of this encounter Visit Diagnoses Not on filedocumented in this encounter Care Teams Early Childhood Aide Classroom Relationship Specialty Start Date End Date Arsh Gamez MD [address] [place], [place] [phone] PCP - General Internal Medicine 12/18/13 documented as of this encounter
--- OUTSIDE RECORDS SUMMARY | 2024-09-13 11:01 | XMS_ITS | Encounter Summary ---
Author Organization [facility] Address [address] [place] [address] [address]t [place] [address] Care Team Providers Care Biologics Specialist Name Role Phone Arsh Gamez MD Primary Care Provide r Reason for Visit * Reason Onset Date Comments Pre Op 07/19/2022 Appointment Request 07/22/2022 r/s Pre Op Encounter Details Date Type Department Care Team ([facility] st Contact Info) Description 07/19/2022 Telephone [facility] [address] [place], [place] [phone] Arsh Gamez MD [address] [place], [place] [phone] Pre Op; Appointment Request (r/s Pre Op [...] am every day. Please contact pt at [phone] * Telephone Encounter - Autumn Ramirez RN [...] 10 am due to him working in [place] for 11am. * Telephone Encounter - Cami Martin RN - 07/19/2022 1:53 PM EST Call to [facility] to inform them of pt's appt. No answer. Left VM with appt details and asked for them to call pt with appointment * Telephone Encounter - Cami Martin RN - 07/19/2022 12:31 PM EST Call from Torrie at [facility]. Pt does not needs labs but does [...] requesting a Pre Op appt Location : [address] [place] [phone] Procedure : Knee Transplant Labs: does not know EKG: does not know Anesthesia: Does not know Surgeon: does not know documented in this encounter Plan of Treatment Upcoming Encounters Date Type Department Care Team (Late st Contact Info) Description 09/24/2024 10:00 AM EDT Office Visit [facility] AD[facility] [address] [place] [address] Elizabeth Cordova DMD 11/27/2024 8:00 AM EDT Office Visit [facility] [address] [place] [address] Trena Lozano [address] [place] [address] documented as of this encounter Visit Diagnoses Not on filedocumented in this encounter Care Teams Biologics Specialist Relationship Specialty Start Date End Date Arsh Gamez MD [address] [place] [address] PCP - General Internal Medicine 12/18/13 documented as of this encounter
--- OUTSIDE RECORDS SUMMARY | 2024-09-13 11:01 | XMS_ITS | Encounter Summary ---
Author Organization [facility] Address [address] [facility] 7t [place] [address] Care Team Providers Care Manufacturing Engineer Supervisor Name Role Phone Arsh Gamez MD Primary Care Provide r Reason for Visit * Reason Onset Date Comments Results 03/27/2024 Encounter Details Date Type Department Care Team ([facility] st Contact Info) Description 03/27/2024 Telephone [facility] [address] [place], [place] [phone] Arsh Gamez MD [address] [place], [place] [phone] Results Social History Tobacco Use Types Packs/Day [...] Description 09/24/2024 10:00 AM EDT Office Visit [facility] ADULT DENTAL [address] [place] [address] Elizabeth Cordova DMD 11/27/2024 8:00 AM EDT Office Visit [facility] [address] [place] [address] Trena Lozano [address] [place], [place] [phone] documented as of this encounter Visit Diagnoses Not on filedocumented in this encounter Additional Health Concerns Assessment Noted Time PHQ-9 Depression Total Score: 0 09/29/19 24 9:32 AM EDT documented as of this encounter Care Teams Manufacturing Engineer Supervisor Relationship Specialty Start Date End Date Arsh Gamez MD [address] [place] [address] PCP - General Internal Medicine 12/18/13 documented as of this encounter
--- OUTSIDE RECORDS SUMMARY | 2024-09-13 11:01 | XMS_ITS | Encounter Summary ---
Author Organization [facility] Address [address] [place] [address] Care Team Providers Care Director Of Slot Operations Name Role Phone Arsh Gamez MD Primary Care Provide r Encounter Details Date Type Department Care Team (Latest Contact Info) Description 05/18/2021 Abstract [facility] CONVERSION[facility] Dental, Provider, DDS Social History [...] Description 09/24/2024 10:00 AM EDT Office Visit [facility] ADULT DENTAL [address] [place] [address] Elizabeth Cordova DMD 11/27/2024 8:00 AM EDT Office Visit [facility] ADULT [facility] [address] [place] [address] Trena Lozano [address] [place], [place] [phone] documented as of this encounter Visit Diagnoses Not on filedocumented in this encounter Care Teams Director Of Slot Operations Relationship Specialty Start Date End Date Arsh Gamez MD [address] [place], [place] [phone] PCP - General Internal Medicine 12/18/13 documented as of this encounter
[2024-09-13 11:21] LABS: Prostate Specific Antigen 1.67 ng/mL (<0.05-4.0)
== END 2024-09-13 09:51 | disposition home or self-care (01) ==
LOC: HO.LAB 09:50
PROVIDERS: Internal Medicine; PCP Internal Medicine; Visit Provider Nurse Practitioner Family
DX: N41.0 Acute prostatitis (principal); N17.9 Acute kidney failure, unspecified; Z12.5 Encounter for screening for malignant neoplasm of prostate
CPT/HCPCS: 36415; 80048; 84153

== ENCOUNTER 2024-09-17 11:30 | Outpatient (AMB) | payer MEDICARE, MEDICAID, SELFPAY ==
[2024-09-17 11:33] VITALS: BP 128/80; PULSE 72; O2SAT 97; BMI 23.5
--- NOTE | 2024-09-17 11:33 | HO.NEPHOV ---
Vital Signs 09/17/24 11:33 Height 5 ft 5 in Weight 141 lb 8 oz BMI 23.5 BP 128/80 Blood Pressure Location Lt brachial Position Sitting Pulse 72 Pulse Source Pulse Oximeter Pulse Oximetry (%) 97 Oxygen Delivery Method Room Air Intake Visit Reasons: FU/ Conf [place] Aide Required: No Accompanied by: Self / Same As Patient Allergies nut - unspecified [NUTS] Allergy (Intermediate, Verified 09/17/24 11:36) ITCHY THROAT nitroglycerin [NITROGLYCERIN] Adverse Reaction (Unknown, Verified 09/17/24 11:36) HEADACHES BREAD Allergy (Mild, Uncoded 06/27/24 10:14) RUNNY NOSE Lopid Allergy (Unknown, Uncoded 06/27/24 10:14) Unknown nsaids Allergy (Unknown, Uncoded 06/27/24 10:14) Unknown Percocet Allergy (Unknown, Uncoded 06/27/24 10:14) Unknown Medication List - Last Reconciled 09/17/24 by Wyatt Mccoy MD amlodipine 5 mg PO DAILY finasteride 5 mg PO DAILY fluticasone propionate 50 mcg/actuation 1 spray intranasal DAILY PRN hydralazine 75 mg PO TID hydrochlorothiazide 12.5 mg PO DAILY lisinopril 40 mg PO DAILY meloxicam 15 mg PO DAILY 30 days metformin ER 500 mg PO DAILY@1800 metoprolol succinate ER 25 mg PO DAILY omeprazole 20 mg PO BID prednisone 20 mg PO DAILY 5 days sennosides (Senna Lax) 17.2 mg (2 x 8.6 mg) PO BEDTIME PRN sulfamethoxazole-trimethoprim 800-160 mg (Bactrim DS) 1 tab PO BID 14 days tamsulosin 0.8 mg (2 x 0.4 mg) PO DAILY Do you need a note to return to daycare/school/sports/work: No HPI Comments Details: 63-year-old male with history of hypertension, knz-qyewgpb-yhrwvyusb type 2 diabetes, hyperlipidemia, and BPH following with [facility] urology / , presented to the ED for evaluation of right lower quadrant and flank/low back pain as well as nausea, vomiting, subjective fevers and chills ongoing for several days. He was found to have acute kidney injury. ALESSANDRA was most likely due to the combination of hypoperfusion in the setting of sepsis/bacteremia and he also had a component of urinary retention. Lopez catheter was inserted. DAVID inhibitors, HCTZ and meloxicam were held. With IV hydration renal function returned to baseline. He was discharged home with a Lopez. He was seen by Dr. Salvador 2 days ago. Lopez has been removed. He still has some dysuria but no difficulty. Serum creatinine has returned to baseline of 1.12. He does have non nephrotic proteinuria in the setting of diabetes mellitus 05/29/24;Here for f/u; Had difficulty urinating with back pain 09/17/24 Seen by in Jun. Treated with a course of Bactrim and Mobic Feels better now No new urinary issues Was given Lisonopril 40 mg by pharmacy BP has been low Today he did not take Lisinopril Claims that his BP was better with 10 mg PFSH Medical History Prostatitis Hyperlipidemia BPH (benign prostatic hyperplasia) Diabetes 1.5, managed as type 2 HTN (hypertension) Surgical History History of knee surgery Social History Household Members: Spouse, Family and Children Housing: Apartment Do you presently have visiting nurse or other home services: No Patient Tobacco Use Status: Never used Tobacco e-Cigarette/Vaping Use: Never Used service: No Physical Exam Vital Signs: Last Vital Signs Pulse 72 09/17/24 11:33 BP 128/80 09/17/24 11:33 Pulse Ox 97 09/17/24 11:33 Oxygen Delivery Method Room Air 09/17/24 11:33 BMI result Body Mass Index 23.5 Comfortable Neck supple no JVD. Lungs entry equal no rales. Heart S1-S2 heard no gallop or rub. Abdomen soft nontender. Neuro alert awake oriented. No asterixis. Extremities no edema. Results Reviewed Nephrology Results: Hgb 15.2 g/dl (14.0-18.0) 04/19/24 WBC 7.7 X10*3/uL (4.8-10.8) 04/19/24 Plt Count 263 X10*3/uL (160-400) 04/19/24 Sodium 141 mmol/L (135-145) 09/13/24 Potassium 3.8 mmol/L (3.3-5.1) 09/13/24 Chloride 103 mmol/L (96-108) 09/13/24 Carbon Dioxide 31 mmol/L (22-29) H 09/13/24 BUN 23 mg/dL (9-16) H 09/13/24 Creatinine 1.02 mg/dL (0.5-1.4) 09/13/24 Calcium 9.9 mg/dL (8.4-10.2) 09/13/24 Urine Protein 30 (1+) mg/dL (Neg-Trace) H 04/19/24 Urine Creatinine 198.06 mg/dL 04/19/24 Renal US 06/05/24 Assessment & Plan Assessment & Plan (1) ALESSANDRA (acute kidney injury): Code(s): N17.9 - Acute kidney failure, unspecified Category: Medical (2) HTN (hypertension): Code(s): I10 - Essential (primary) hypertension Category: Medical Plan 64-year-old man with ALESSANDRA superimposed on mild CKD in a setting of longstanding diabetes mellitus and enlarged prostate with non nephrotic range proteinuria. The ALESSANDRA was due to hypoperfusion combined with possible urinary retention. Renal function is back to baseline. Cr down to 1.2 Baseline workup for proteinuria was unremarkable Blood pressure is well controlled. I will continue with DAVID inhibitor for renal protection. Change Lisinopril to 10 mg QD ( from 40 mg) We would avoid NSAIDs due to the risk of hypoperfusion in combination with DAVID inhibitors. I have encouraged him to increase p.o. fluid intake Stay on low-sodium diet. Follow with as well Orders: Orders Basic Metabolic Panel 6 Months I10 - Essential (primary) hypertension, N17.9 - Acute kidney failure, unspecified Total Protein Urine Random Today I10 - Essential (primary) hypertension, N17.9 - Acute kidney failure, unspecified UA and rflx microscopic Today I10 - Essential (primary) hypertension, N17.9 - Acute kidney failure, unspecified Creatinine Urine Today I10 - Essential (primary) hypertension, N17.9 - Acute kidney failure, unspecified Basic Metabolic Panel 3 Months I10 - Essential (primary) hypertension, N17.9 - Acute kidney failure, unspecified Medications: New lisinopril 10 mg PO DAILY 90 tabs 0RF Discontinued sulfamethoxazole-trimethoprim 800-160 mg (Bactrim DS) Discontinued Reason: Patient no longer taking 1 tab PO BID 14 days 28 tabs 0RF N39.0 - Urinary tract infection, site not specified meloxicam Discontinued Reason: Patient Completed Course 15 mg PO DAILY 30 days 30 tabs 0RF R10.31 - Right lower quadrant pain, R10.32 - Left lower quadrant pain Coding Level of Care Code Est Pt Level 4 (11893) Diagnoses ALESSANDRA (acute kidney injury) N17.9 HTN (hypertension) I10
--- OUTSIDE RECORDS SUMMARY | 2024-09-17 13:17 | XMS_ITS | Encounter Summary ---
Author Organization [facility] Address [address] [facility] 7t [place] [address] Care Team Providers Care Sap Crm Developer Name Role Phone Arsh Gamez MD Primary Care Provide r Reason for Visit * Reason Comments Med Refill Encounter Details Date Type Department Care Team ([facility] st Contact Info) Description 05/11/2024 Refill [facility] MEDICINE [address] [place], [place] [phone] Arsh Gamez MD [address] [place], [place] [phone] Need for prophylactic antibiotic Social History Tobacco [...] 10:00 AM EDT Office Visit [facility] ADULT D[facility] [address] [place] [address] Elizabeth Cordova DMD 11/27/2024 8:00 AM EDT Office Visit [facility] ADULT DENT[facility] [address] [place] [address] Trena Lozano [address] [place], [place] [phone] documented as of this encounter Visit Diagnoses Diagnosis Need for prophylactic antibiotic Encounter for long-term (current) use of antibiotics documented in this encounter Additional Health Concerns Assessment Noted Time PHQ-9 Depression Total Score: 0 09/29/19 24 9:32 AM EDT documented as of this encounter Care Teams Sap Crm Developer Relationship Specialty Start Date End Date Arsh Gamez MD [address] [place] [address] PCP - General Internal Medicine 12/18/13 documented as of this encounter
--- OUTSIDE RECORDS SUMMARY | 2024-09-17 13:17 | XMS_ITS | Encounter Summary ---
Author Organization [facility] Address [address] [place] [address] Care Team Providers Care Promotional Marketing Analyst Name Role Phone Arsh Gamez MD Primary Care Provide r Reason for Visit * Reason Comments Med Refill Encounter Details Date Type Department Care Team ([facility] st Contact Info) Description 12/28/2023 Refill [facility] [address] [place], [place] [phone] Felicita Beasley, ANP [address] [place], [place] [phone] Benign prostatic hyperplasia with urinary frequency Social [...] [facility] ADULT DENT[facility] [address] [place] [address] Elizabeth Cordova DMD 11/27/2024 8:00 AM EDT Office Visit [facility] ADULT DENTAL [address] [place] [address] Trena Lozano [address] [place] [address] documented as of this encounter Visit Diagnoses Diagnosis Benign prostatic hyperplasia with urinary frequency documented in this encounter Additional Health Concerns Assessment Noted Time PHQ-9 Depression Total Score: 0 09/29/19 24 9:32 AM EDT documented as of this encounter Care Teams Promotional Marketing Analyst Relationship Specialty Start Date End Date Arsh Gamez MD [address] [place] [address] PCP - General Internal Medicine 12/18/13 documented as of this encounter
--- OUTSIDE RECORDS SUMMARY | 2024-09-17 13:17 | XMS_ITS | Data Portability ---
Author Organization [facility], [facility] Address [address] [place] [address] Care Team Providers Care Hospitality Host Name Role Phone RUBEN ALMEIDA Print Journalist Assessment Encounter Date Assessment Date Assessment LastModified [...] PSA 0.79 NG/mL 0.00-4 .00 Not Available [facility] [address] [facility], [place], [address], 06/04/2020 09:17:46 06/12/1906/11/2021 US, [facility] [...] Physic robert: Miguel Ángel Chandra ms [email or web address] [facility] (Imaging) [address], [place], [address], 06/12/2021 15:41:27 Result Notes None recorded. Problems Name Problem SNOMED Code Status Onset Date Resolution Date Notes Provider Name and Address Organization Details Recorded Time Benign essential hypertension 0226471 Active [facility] 4 15:56:48 Mixed hyperlipidemia 704862957 Active [facility] 4 15:56:48 Neck pain 26188775 Active 2018 Ailin Denise, PT [address] [place], [address], [facility] 9 10:23:53 Knee pain Active 2018 Ailin Denise, PT [address] [facility] [place], [address], [facility] 9 10:24:06 Problem Notes None recorded. Procedures Surgical History Date Name Laterality Status Provider Name and Address Organization Details Recorded Time Iam - Colonoscopy completed Kalpesh Vitale MD [address] [place] [address], [address], [facility] 06/11/2020 11:44:34 9 04247: Therapeutic Exercise completed Ailin Denise, PT [address] [place], [address], [facility] 05/02/2019 15:30:50 9 46034: Ultrasound (1:1) completed Ailin Denise, PT [address] [place], [address], [facility] 05/02/2019 15:31:29 9 53324: Therapeutic Exercise completed Ailin Denise, PT [address] [place], [address], [facility] 03/29/2019 14:10:53 9 59012: Manual Therapy completed Ailin Denise, PT [address] [place], [address], [facility] 03/29/2019 14:12:07 9 24138: Ultrasound (1:1) completed Ailin Denise, PT [address] [place], [address], [facility] 03/29/2019 14:10:44 9 94951: Therapeutic Exercise completed Ailin Denise, PT [address] [place], [address], [facility] 03/05/2019 08:59:25 9 48366: Ultrasound (1:1) completed Ailinjeevan Denise, [place], [address], [facility] 03/05/2019 08:59:51 9 71691: Therapeutic Exercise completed Ailinjeevan Denise, PT [address] [place], [address], [facility] 02/28/2019 14:06:30 9 28212: Ultrasound (1:1) completed Ailin Denise, [place], [address], [facility] 02/28/2019 08:39:11 9 68598: Therapeutic Exercise completed Ailin Denise, PT [address] [place], [address], [facility] 02/21/2019 08:53:42 9 18222: Manual Therapy completed Ailin Denise, PT [address] [place], [address], [facility] 02/21/2019 08:54:12 9 82966: Ultrasound (1:1) completed Ailin Denise, PT [address] [place], [address], [facility] 02/21/2019 08:53:37 9 84319: Therapeutic Exercise completed Ailin Denise, [place], [address], [facility] 02/13/2019 09:01:25 9 99062: Ultrasound (1:1) completed Ailin Denise, PT [address] [place], [address], [facility] 02/13/2019 09:01:48 9 55002: Therapeutic Exercise completed Ailin Denise, PT [address] [place], [address], [facility] 02/05/2019 09:21:43 9 40582: Ultrasound (1:1) completed Ailin Denise, PT [address], [place], [address], [facility] 02/05/2019 09:32:12 9 24261: Therapeutic Exercise completed Ailin Denise, PT [address] [place], [address], [facility] 01/29/2019 16:37:51 9 46315: Ultrasound (1:1) completed Ailin Denise, PT [address] [place], [address], [facility] 01/29/2019 21:40:52 9 37231: Therapeutic Exercise completed Ailin Denise, PT [address] [place], [address], [facility] 01/23/2019 18:38:30 9 75919: Ultrasound (1:1) completed Ailin Denise, PT [address] [place], [address], [facility] 01/23/2019 18:37:02 9 Physical Activity Counselling completed Ailin Denise, PT [address] [place], [address], [facility] 01/23/2019 08:28:15 9 40910: PT Eval, Moderate Complexity completed Ailin Denise, PT [address] [place], [address], [facility] 01/23/2019 08:28:17 6 81015: PT Evaluation completed Ailin Denise, PT [address] [place], [address], [facility] 12/31/2015 21:07:43 3 Medicare Wellness Visit completed Greer Escobar [facility] 05/01/2013 14:06:49 Imaging Results Imaging Date Name Status LastModified by Organiz ation Details LastModified Time 06/11/2021 [facility] [address], [place], [address], 06/12/2021 15:41:27 Procedure Notes None recorded. 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 Medical History Condition Response Benign Prostatic Hypertrophy Y RENAL / GENITOURINARY Y Migraine Headaches Y Erectile Dysfunction Y Hyperlipidemia Y Hypertension Y Depression Y Chronic Back Pain Y Past Encounters Encounter ID Performer Location Encounter Start Date Encounter Closed Date Diagnosis/Indication Diagnosis SNOMED-CT Code Diagnosis ICD10 Code Diagnosis Note [id number] Summer Marrufo PT Physical Therapy, [address] [address] 07/25/2009 08:02:15 07/28/2009 13:37:44 [id number] Summer Marrufo PT Physical Therapy, [address] [address] 07/30/2009 12:07:44 07/31/2009 12:18:06 [id number] Summer Marrufo PT Physical Therapy, [address] [address] 08/05/2009 10:36:32 08/05/2009 15:44:53 [id number] Summer Marrufo PT Physical Therapy, [address] [address] 08/12/2009 09:48:25 08/13/2009 11:27:11 [id number] Arsh ni MD , [facility], OFFICE [address] [place] [address] 05/01/2013 13:49:21 05/01/2013 15:35:17 Adult health examination [id number] Pt is here for a physical exam, his main particular complaint is his acute on chronic low back pain that is not new for him otherwise his physical exam is within normal limits see Risk Assessment and Lifestyle Change Counseling section above Counseling [id number] Low back pain 319949374 Pt here with acute on chronic right sided low back pain intensity 5/10, radiation to buttock and right lower leg, accompanie d by numbness and tingling at time 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 Most recent MRI of the LS spine done at [facility] on 02/18/2000 showed NO evidence of recurrent [...] him on his next visit. Knee pain 82368727 Pt initially c/o knee pain to my [...] involving the adjacent femoral condyle Essential hypertension 09002904 Pt here with HTN currently controlled on [...] from previous EKG done on 03/06/1011 Hyperlipidemia 25190609 Hypertrigl yceridemia : Pt with a Hx of elevated lipids. Most recent Lipid profile done on: 02/09/2012 ([facility]) showed a total cholestero l of: 210, [...] diet and exercise. Gastroesop hageal reflux disease 364677203 GERD: Pt under the care of [facility] . Last seen by Dr Vitale on 01/09/2013. He recommende d to continue on Omeprazole 20 mg po BID. Pt still c/o GERD, mainly due to the ammount of medication s for pain he has to take. CTS: Under the care of Dr Mishra at [facility] , treated with injections in the [...] that was basically within normal limits. Migraine 70477586 Extens jatinder evaluation in the past by neurology specialsit (Dr nita Lott) last seen in 2006. Back then he recommende d Zomig and Fioricet PRN. Last MRI of brain done at [facility] on 05/06/2003 showed NO acute intracrani al process aside from MILD bilateral maxillary sinus disease. Erythrocytosis 758778893 Hx of polycythem ia: Pt's previous CBC had shown policythem ia, last time his CBC was repeated it had resolved. 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 Most recent MRI of the LS spine done at [facility] on 02/18/2000 showed NO evidence of recurrent [...] him on his next visit. Essential hypertension 34748892 Pt here with HTN currently controlled on [...] from previous EKG done on 03/06/1011 Hyperlipidemia 22635550 Pt with a Hx of elevated lipids. [...] diet and exercise. Gastroesop hageal reflux disease 347442606 GERD: [facility] . Last seen by Dr Vitale on 01/09/2013. He recommende d to continue on Omeprazole 20 mg po BID. Pt still c/o GERD, mainly due to the ammount of medication s for pain he has to take. CTS: Under the care of Dr Mishra at [facility] , treated with injections in the past. [...] was basically within normal limits. Knee pain 25457222 Pt initially c/o knee pain to my [...] bruise involving the adjacent femoral condyle Migraine 29200028 Extens jatinder evaluation in the past by neurology specialsit (Dr nita Lott) last seen in 2006. Back then he recommende d Zomig and Fioricet PRN. Last MRI of brain done at [facility] on 05/06/2003 showed NO acute intracrani al process aside from MILD bilateral maxillary sinus disease. Erythrocytosis 319901466 Hx of polycythem ia: Most recent CBC 05/2013 showed a Hgb 18.1 Impaired g lucose tolerance 0766415 discussed the need to adhere to a low carbohydra te diaet. Ulcer of mouth 34142978 Non healing ulcer left cheek for several weeks, etiology ? Please evaluate for considerat ion of biopsy ? [id number] Afua Alexander, OT Physical Therapy, [address] [address] 05/27/2015 08:31:51 05/27/2015 16:00:43 Pain of shoulder region 58796500 M25.902 [id number] Afua Alexander, OT Physical Therapy, [address] [address] 06/03/2015 08:23:46 06/03/2015 11:05:23 Pain of shoulder region 91113624 M25.953 [id number] Afua Alexander, OT Physical Therapy, [address] [address] 06/05/2015 09:58:24 06/05/2015 14:32:44 Pain of shoulder region 48997157 M25.019 [id number] Afua Alexander, OT Physical Therapy, [address] [address] 06/09/2015 11:06:55 06/10/2015 09:06:01 Pain of shoulder region 98302895 M25.099 [id number] Afua Alexander, OT Physical Therapy, [address] [address] 06/11/2015 11:23:55 06/11/2015 13:38:45 Pain of shoulder region 05571704 M25.009 [id number] Afua Alexander OT Physical Therapy, [address] [address] 06/19/2015 08:51:10 06/19/2015 13:39:11 Pain of shoulder region 65977896 M25.302 [id number] Afua Alexander OT Physical Therapy, [address] [address] 07/01/2015 08:11:27 07/01/2015 13:25:18 Pain of shoulder region 62219341 M25.424 [id number] Afua Alexander OT Physical Therapy, [address] [address] 07/03/2015 08:05:53 07/03/2015 13:20:43 Pain of shoulder region 62944097 M25.316 [id number] Afua Alexander, OT Physical Therapy, [address] [address] 07/10/2015 08:21:46 07/10/2015 15:21:32 Pain of shoulder region 56365698 M25.047 [id number] Afua Alexander, OT Physical Therapy, [address] [address] 07/15/2015 08:47:34 07/15/2015 15:26:02 Pain of shoulder region 44779695 M25.836 [id number] Afua Alexander, OT Physical Therapy, [address] [address] 07/17/2015 08:38:46 07/17/2015 14:08:15 Pain of shoulder region 03875894 M25.566 [id number] Afua Alexander, OT Physical Therapy, [address] [address] 07/29/2015 08:45:51 07/29/2015 10:02:26 Pain of shoulder region 85095823 M25.262 [id number] Afua Alexander, OT Physical Therapy, [address] [address] 07/31/2015 08:34:35 07/31/2015 13:09:27 Pain of shoulder region 99740774 M25.086 [id number] Afua Alexander, OT Physical Therapy, [address] [address] 08/07/2015 08:55:08 08/07/2015 16:51:16 Pain of shoulder region 93682201 M25.758 [id number] Afua Alexander, OT Physical Therapy, [address] [address] 09/29/2015 08:27:53 09/29/2015 13:26:18 Pain of shoulder region 40365060 M25.880 [id number] Afua Alexander, OT Physical Therapy, [address] [address] 10/02/2015 08:55:48 10/02/2015 11:01:55 Pain of shoulder region 67582665 M25.987 [id number] Afua Alexander, OT Physical Therapy, [address] [address] 10/09/2015 08:40:54 10/09/2015 14:11:25 Pain of shoulder region 63222642 M25.161 [id number] Afua Alexander, OT Physical Therapy, [address] [address] 10/15/2015 08:56:45 10/15/2015 11:59:15 Pain of shoulder region 38604617 M25.454 [id number] Ailin Denise, PT Physical Therapy, [address] [address] 12/30/2015 13:05:30 01/01/2016 13:09:18 Knee pain 20785285 M25.315 [id number] Ailin Denise, PT Physical Therapy, [address] [address] 01/22/2019 16:12:20 01/23/2019 14:35:11 Neck pain 10090819 M54.2 Knee pain 48118792 M25.5 61 [id number] Ailin Denise, PT Physical Therapy, [address] [address] 01/23/2019 14:06:17 01/24/2019 08:02:25 Knee pain 96347244 M25.561 Neck pain 08710413 M54.2 [id number] Ailin Denise PT Physical Therapy, [address] [address] 01/29/2019 16:20:45 01/30/2019 08:15:17 Knee pain 93564933 M25.561 Neck pain 25740644 M54.2 [id number] Ailin Denise, PT Physical Therapy, [address] [address] 02/05/2019 08:43:24 02/05/2019 15:06:38 Knee pain 93953228 M25.561 Neck pain 47972602 M54.2 [id number] Ailin Denise, PT Physical Therapy, [address] [address] 02/13/2019 07:56:20 02/13/2019 09:23:33 Knee pain 89960365 M25.561 Neck pain 17604971 M54.2 [id number] Ailin Denise, PT Physical Therapy, [address] [address] 02/21/2019 08:06:59 02/21/2019 13:25:09 Knee pain 91864912 M25.429 [id number] Ailin Denise, PT Physical Therapy, [address] [address] 02/28/2019 08:15:11 02/28/2019 14:51:10 Knee pain 87142098 M25.834 [id number] Ailin Denise, PT Physical Therapy, [address] [address] 03/05/2019 08:42:23 03/05/2019 09:33:49 Knee pain 59565751 M25.619 [id number] Ailin Denise, PT Physical Therapy, [address] [address] 03/29/2019 13:33:21 03/29/2019 14:33:43 Knee pain 43223796 M25.561 Neck pain 11016564 M54.2 [id number] Ailin Denise, PT Physical Therapy, [address] [address] 05/02/2019 14:42:52 05/02/2019 15:35:16 Knee pain 68697089 M25.136 [id number] Kalpesh Vitale MD [facility], [address] [address] 06/11/2020 10:03:01 06/11/2020 12:25:29 Health Concerns Section Related Observation LastModified by Organization Detai ls LastModified Time None Recorded Concern Status LastModified by Organization Details LastModified Time None Recorded Advance Directives Directive None Recorded Payers Encounter Date Sequence Insurance Name Policy Number Policy Fagan Covered Member ID Fagan Member ID Guarantor Name 02/28/2019 1 [place] [employer] Jakob Scott [id number] Jakob Zimmer 02/28/2019 2 [place] [facility] [facility] Jakob Zimmer [id number] Jakob Zimmer 03/05/2019 1 [place] [employer] Jakob Scott [id number] Jakob Zimmer 03/05/2019 2 [place] Jakob Zimmer [id number] Jakob Zimmer 03/29/2019 1 [place] [employer] Jakob Machado Ro [id number] Jakob Zimmer 03/29/2019 2 [place] Jakob Zimmer [id number] Jakob Zimmer 05/02/2019 1 [place] [employer] Jakob Machado Ro [id number] Jakob Zimmer 05/02/2019 2 [place] Jakob Zimmer [id number] Jakob Zimmer 06/11/2020 1 [place] [employer] Jakob Machado Ro [id number] Jakob Zimmer 06/11/2020 2 [place] Jakob Zimmer [id number] Jakob Zimmer
--- OUTSIDE RECORDS SUMMARY | 2024-09-17 13:17 | XMS_ITS | Encounter Summary ---
Author Organization [email or web address] Address [address] [facility] 7t [place] [address] Care Team Providers Care Bird Sitter Name Role Phone Arsh Gamez MD Primary Care Provide r Reason for Visit * Reason Comments Med Refill Encounter Details Date Type Department Care Team ([facility] st Contact Info) Description 06/20/2023 Refill [facility] MEDICINE [address] [place], [place] [phone] Arsh Gamez MD [address] [place], [place] [phone] Pain Social History Tobacco Use Types Packs/Day [...] Description 09/24/2024 10:00 AM EDT Office Visit [facility] ADULT DENTAL [address] [place] [address] Elizabeth Cordova DMD 11/27/2024 8:00 AM EDT Office Visit [facility] ADULT DENTAL [address] [place] [address] Trena Lozano [address] [place], [place] [phone] documented as of this encounter Visit Diagnoses Diagnosis Pain Generalized pain documented in this encounter Care Teams Bird Sitter Relationship Specialty Start Date End Date Arsh Gamez MD [address] [place] [address] PCP - General Internal Medicine 12/18/13 documented as of this encounter
--- OUTSIDE RECORDS SUMMARY | 2024-09-17 13:17 | XMS_ITS | Encounter Summary ---
Author Organization [employer] [facility] Address [address] [facility] 7t [place] [address] Care Team Providers Care Floor Installer Name Role Phone Arsh Gamez MD Primary Care Provide r Reason for Visit * Reason Onset Date Comments rescheduled appt mistakenly cancelled 05/17/2024 Encounter Details Date Type Department Care Team (Late st Contact Info) Description 05/17/2024 Telephone [facility] ADULT DENTAL [address] [place], [place] [phone] Nickie, Sheyla [address] [place] [address] rescheduled appt mistakenly cancelled Social History Tobacco [facility] [address] [place] [address] Elizabeth Cordova DMD 11/27/2024 8:00 AM EDT Office Visit [facility] ADULT DENTAL [address] [place] [address] Trena Lozano [address] [place] [address] documented as of this encounter Visit Diagnoses Not on filedocumented in this encounter Additional Health Concerns Assessment Noted Time PHQ-9 Depression Total Score: 0 09/29/19 24 9:32 AM EDT documented as of this encounter Care Teams Floor Installer Relationship Specialty Start Date End Date Arsh Gamez MD [address] [place] [address] PCP - General Internal Medicine 12/18/13 documented as of this encounter
--- OUTSIDE RECORDS SUMMARY | 2024-09-17 13:17 | XMS_ITS | Encounter Summary ---
Author Organization [employer] Address [address] [facility] [address]t [place] [address] Care Team Providers Care Network Intelligence Analyst Name Role Phone Arsh Gamez MD Primary Care Provide r Reason for Visit * Reason Comments Med Refill Encounter Details Date Type Department Care Team ([facility] st Contact Info) Description 03/25/2024 Refill [facility] ADULT DENTAL [address] [place], [place] [phone] Rolando Denton, DDClaudia [address] [place] [address] Social History Tobacco Use Types Packs/Day Years [...] 09/24/2024 10:00 AM EDT Office Visit [facility] ADULT DENTAL [address] [place] [address] Elizabeth Cordova DMD 11/27/2024 8:00 AM EDT Office Visit [facility] ADULT D[facility]AL [address] [place] [address] Trena Lozano [address] [place] [address] documented as of this encounter Visit Diagnoses Not on filedocumented in this encounter Additional Health Concerns Assessment Noted Time PHQ-9 Depression Total Score: 0 09/29/19 24 9:32 AM EDT documented as of this encounter Care Teams Network Intelligence Analyst Relationship Specialty Start Date End Date Arsh Gamez MD [address] [place] [address] PCP - General Internal Medicine 12/18/13 documented as of this encounter
--- OUTSIDE RECORDS SUMMARY | 2024-09-17 13:17 | XMS_ITS | Encounter Summary ---
Author Organization [facility] Address [address] [place] [address] Phone Care Team Providers Care Textile Scrap Salvager Name Role Phone Arsh Sharif MD Primary Care Provider Encounter Details Date Type Department Care Team (Late st Contact Info) Description 06/29/2022 Telephone [facility] [address] [place] [address] Sarah Phelps Social History Tobacco [...] that the hospital performing thesurhelengenie Holguin in [place] needs the clearance two months before his surgery date in September. Surgery is for his right knee. documented in this encounter Plan of Treatment Not on file documented as of this encounter Visit Diagnoses Not on filedocumented in this encounter Care Teams Textile Scrap Salvager Relationship Specialty Start Date End Date Arsh Sharif MD [address] [place] [address] PCP - General Internal Medicine 08/24/21 documented as of this encounter
--- OUTSIDE RECORDS SUMMARY | 2024-09-17 13:17 | XMS_ITS | Encounter Summary ---
Author Organization [employer] [facility] Address [address] [facility] 7t [place] [address] Care Team Providers Care Program Manager Name Role Phone Arsh Gamez MD Primary Care Provide r Encounter Details Date Type Department Care Team (Latest Contact Info) Description 07/09/2019 Abstract [facility] CONVERSIONS Dental, Provider, DDS Social History [...] Care Team ( st Contact Info) Description 09/24/2024 10:00 AM EDT Office Visit [facility] ADULT DENTAL [address] [place], [place] [phone] Elizabeth Cordova DMD 11/27/2024 8:00 AM EDT Office Visit [facility] ADULT D[facility] [address] [place] [address] Trena Lozano [address] [place], [place] [phone] documented as of this encounter Visit Diagnoses Not on filedocumented in this encounter Care Teams Program Manager Relationship Specialty Start Date End Date Arsh Gamez MD [address] [place], [place] [phone] PCP - General Internal Medicine 12/18/13 documented as of this encounter
--- OUTSIDE RECORDS SUMMARY | 2024-09-17 13:17 | XMS_ITS | Encounter Summary ---
Author Organization [facility] Address [address] [facility] 7t [place] [address] Care Team Providers Care Head Doffer Name Role Phone Arsh Gamez MD Primary Care Provide r Encounter Details Date Type Department Care Team (Late st Contact Info) Description 09/23/2022 Abstract [facility] MEDICINE [address] [place], [place] [phone] Arsh Gamez MD [address] [place], [place] [phone] Social History Tobacco Use Types Packs/Day Years [...] Description 09/24/2024 10:00 AM EDT Office Visit [facility] ADULT DENTAL [address] [place] [address] Elizabeth Cordova DMD 11/27/2024 8:00 AM EDT Office Visit [facility] ADULT D[facility]AL [address] [place] [address] Trena Lozano [address] [place] [address] [phone] documented as of this encounter Visit Diagnoses Not on filedocumented in this encounter Care Teams Head Doffer Relationship Specialty Start Date End Date Arsh Gamez MD [address] [place] [address] PCP - General Internal Medicine 12/18/13 documented as of this encounter
--- OUTSIDE RECORDS SUMMARY | 2024-09-17 13:17 | XMS_ITS | Encounter Summary ---
Author Organization [employer] Address [address] [facility] 7t [place] [address] Care Team Providers Care Aligner Barrel And Receiver Name Role Phone Arsh Gamez MD Primary Care Provide r Reason for Visit * Reason Comments Med Refill Encounter Details Date Type Department Care Team ([facility] st Contact Info) Description 04/06/2024 Refill [facility] ADULT DENTAL [address] [place], [place] [phone] Power Davis, OLIVA [address] [place] [address] Social History Tobacco Use Types Packs/Day Years [...] encounter Miscellaneous Notes * Telephone Encounter - Pwoer Davis DMD - 04/09/2024 7:55 AM EST Approving, but needs appt for additional refills. documented in this encounter Plan of Treatment Upcoming Encounters Date Type Department Care Team (Late st Contact Info) Description 09/24/2024 10:00 AM EDT Office Visit [facility] ADULT [facility] [address] [place] [address] Elizabeth Cordova DMD 11/27/2024 8:00 AM EDT Office Visit [facility] ADULT DENTAL [address] [place] [address] Trena Lozano [address] [place] [address] documented as of this encounter Visit Diagnoses Not on filedocumented in this encounter Additional Health Concerns Assessment Noted Time PHQ-9 Depression Total Score: 0 09/29/19 24 9:32 AM EDT documented as of this encounter Care Teams Aligner Barrel And Receiver Relationship Specialty Start Date End Date Arsh Gamez MD [address] [place] [address] PCP - General Internal Medicine 12/18/13 documented as of this encounter
--- OUTSIDE RECORDS SUMMARY | 2024-09-17 13:17 | XMS_ITS | Encounter Summary ---
Author Organization [employer] Address [address] [facility] 7t [place] [address] Care Team Providers Care Stacker And Sorter Operator Name Role Phone Arsh Gamez MD Primary Care Provide r Reason for Visit * Reason Comments Med Refill Encounter Details Date Type Department Care Team ([facility] st Contact Info) Description 07/07/2024 Refill [facility] [address] [place], [place] [phone] Arsh Gamez MD 230 [place], [place] [phone] Benign prostatic hyperplasia with urinary frequency Social [...] 10:00 AM EDT Office Visit [facility] ADULT DENTAL [address] [place] [address] Elizabeth Cordova DMD 11/27/2024 8:00 AM EDT Office Visit [facility] ADULT DENTAL [address] [place] [address] Trena Lozano [address] [place] [address] documented as of this encounter Visit Diagnoses Diagnosis Benign prostatic hyperplasia with urinary frequency documented in this encounter Additional Health Concerns Assessment Noted Time PHQ-9 Depression Total Score: 0 09/29/19 24 9:32 AM EDT documented as of this encounter Care Teams Stacker And Sorter Operator Relationship Specialty Start Date End Date Arsh Gamez MD [address] [place] [phone] PCP - General Internal Medicine 12/18/13 documented as of this encounter
--- OUTSIDE RECORDS SUMMARY | 2024-09-17 13:17 | XMS_ITS | Encounter Summary ---
Author Organization [facility] Address [address] [facility] 7t [place] [address] Care Team Providers Care Geology Faculty Member Name Role Phone Arsh Gamez MD Primary Care Provide r Reason for Visit * Reason Onset Date Comments Appointment Request 12/30/2023 Encounter Details Date Type Department Care Team ([facility] st Contact Info) Description 12/30/2023 Telephone [facility] MEDICINE [address] [place], [place] [phone] Arsh Gamez MD [address] [place], [place] [phone] Appointment Request Social History Tobacco Use Types [...] Description 09/24/2024 10:00 AM EDT Office Visit [facility] ADULT DENTAL [address] [place] [address] Elizabeth Cordova DMD 11/27/2024 8:00 AM EDT Office Visit [facility] ADULT DENTAL [address] [place] [address] Trena Lozano [address] [place], [place] [phone] documented as of this encounter Visit Diagnoses Not on filedocumented in this encounter Additional Health Concerns Assessment Noted Time PHQ-9 Depression Total Score: 0 09/29/19 24 9:32 AM EDT documented as of this encounter Care Teams Geology Faculty Member Relationship Specialty Start Date End Date Arsh Gamez MD [address] [place] [address] PCP - General Internal Medicine 12/18/13 documented as of this encounter
--- OUTSIDE RECORDS SUMMARY | 2024-09-17 13:17 | XMS_ITS | Encounter Summary ---
Author Organization [employer] Address [address] [facility] 7t [place] [address] Care Team Providers Care Occupational Rehabilitation Aide Name Role Phone rAsh Gamez MD Primary Care Provide r Reason for Visit * Reason Onset Date Comments Med Change Request Prior Authorization 03/10/2023 SUMAtriptan (Imitrex) 50 MG tablet Encounter Details Date Type Department Care Team ([facility] st Contact Info) Description 03/10/2023 Refill [facility] MEDICINE [address] [place], [place] [phone] Arsh Gamez MD [address] [place], [place] [phone] Social History Tobacco Use Types Packs/Day Years [...] 09/24/2024 10:00 AM EDT Office Visit [facility] AD[facility] [address] [place] [address] Elizabeth Cordova DMD 11/27/2024 8:00 AM EDT Office Visit [facility] ADULT DENTAL [address] [place] [address] Trena Lozano [address] [place] [address] documented as of this encounter Visit Diagnoses Not on filedocumented in this encounter Care Teams Occupational Rehabilitation Aide Relationship Specialty Start Date End Date Arsh Gamez MD [address] [place] [address] PCP - General Internal Medicine 12/18/13 documented as of this encounter
--- OUTSIDE RECORDS SUMMARY | 2024-09-17 13:17 | XMS_ITS | Encounter Summary ---
Author Organization [employer] Address [address] 7[address] [place] [address] Care Team Providers Care Camp Attendant Name Role Phone Arsh Gamez MD Primary Care Provide r Reason for Visit * Reason Comments Med Refill Encounter Details Date Type Department Care Team ([facility] st Contact Info) Description 06/24/2023 Refill [facility] MED & PEDS [address] [place], [place] [phone] Arsh Gamez MD [address] [place] [address] Pain Social History Tobacco Use Types Packs/Day [...] [facility] [address] [place] [address] Elizabeth Cordova DMD 11/27/2024 8:00 AM EDT Office Visit [facility] ADULT DENTAL [address] [place] [address] Trena Lozano [address] [place] [address] documented as of this encounter Visit Diagnoses Diagnosis Pain Generalized pain documented in this encounter Care Teams Camp Attendant Relationship Specialty Start Date End Date Arsh Gamez MD [address] [place] [address] PCP - General Internal Medicine 12/18/13 documented as of this encounter
--- OUTSIDE RECORDS SUMMARY | 2024-09-17 13:17 | XMS_ITS | Clinical Summary ---
Author Organization [facility] Address [address] [address] Care Team Providers Care Customer Service Manager Name Role Phone Arsh Sharif MD Primary Care Provider [phone] Allergies No known active allergies Medications meloxicam [...] Medicaid [place] Medicare Medicaid [place] Care Teams Customer Service Manager Relationship Specialty Start Date End Date Arsh Sharif MD [address] [place] [address] [phone] PCP - General Internal Medicine 08/24/21
--- OUTSIDE RECORDS SUMMARY | 2024-09-17 13:18 | XMS_ITS | Encounter Summary ---
Author Organization [facility] Address [address] [facility] 7t [place] [address] Care Team Providers Care Doughnut Fryer Name Role Phone Arsh Gamez MD Primary Care Provide r Encounter Details Date Type Department Care Team (Late st Contact Info) Description 06/14/2022 Orders Only [facility] MED & PEDS [address] [place], [place] [phone] Sarah Pineda LPN Social History Tobacco Use [...] Description 09/24/2024 10:00 AM EDT Office Visit [facility] ADULT DENTAL [address] [place], [place] [phone] Elizabeth Cordova DMD 11/27/2024 8:00 AM EDT Office Visit [facility] ADULT DENTAL [address] [place], [place] [phone] Trena Lozano [address] [place] [address] documented as of this encounter Procedures Procedure [...] EST documented in this encounter Results * Pendleton/Lambda Light Chains, Free with Ratio (06/17/2022 10:30 AM EST) P[place]leton Light Chain, Free, Serum 303 176 - 443 mg/dL [facility] Lambda Light Chain, Free, Serum 163 91 - 240 mg/dL [facility] Pendleton/Lambda Light Chains Free With Ratio, Serum 1.86 1.29 - 2.55 [facility] Comment:This assay provides a measurement of [...] myeloma, lymphoproliferative disorders, andamyloidosis.THIS TEST WAS PERFORMED AT:[employer] [address] [place] [address]MCNSDDELMA SINGER MD,PHD,ADRIENNE 06/17/2022 10:3 0 AM EST 06/18/2022 4:58 PM EST [facility] External Provider LAB BLO OD ORDERABLES Final Result Performing Organization Address [facility] Co de Phone Number [facility] [address] [place] [address] [phone] * Albumin, Random Urine W/Creatinine (06/17/2022 10:30 AM EST) Creatinine, Urine 123.67 mg/dL [facility] Microalbumin Urine 42.0 mg/L [facility] Microalbum Creatinine Ratio Ur 33.9 ug/mg cr [facility] Comment:Albumin/Creatinine R atio Reference Ranges: Normal: < 30 ug/mg creatinine Microalbuminuria: 30 - 300 ug/mg creatinineClinical Albuminuria: > 300 ug/mg creatinine 06/17/2022 10:3 0 AM EST 06/17/2022 11:33 AM EST [facility] External Provider LAB URI NE ORDERABLES Final Result Performing Organization Address [facility]/ZIP Co de Phone Number [facility] [address] [place] [address] [phone] * Protein Electrophoresis and Total Protein, Random Urine (06/17/2022 10:15 AM EST) PEU-Random Urine Creatinine 121 20 - 320 mg/dL [facility] PEU-Random Urine Protein 14 5 - 25 mg/dL [facility] PEU-[place]. Prot/Creat Ratio 116 25 - 148 mg/g creat [facility] PEU-Random Urine Albumin 100 % [facility] PEU-Random Urine A1 Globulin 0 % [facility] PEU-Random Urine A2 Globulin 0 % [facility] PEU-Random Urine Beta Globulin 0 % [facility] PEU-Random Ur. Gamma Globulin 0 % [facility] PEU Ran-Abn Protein Band 1 TNP [facility] PEU Ran-Abn Protein Band 2 TNP [facility] PEU Ran-Abn Protein Band 3 TN[facility] PEU-Random Urine Interpret. SEE NOTE [facility] Comment:Normal PatternTHIS T EST WAS PERFORMED AT:[employer] [address] ([facility] [address]DLDEVTERRY JASON MD Protein/Creatini ne Ratio 0.116 0.025 - 0.148 [facility] Comment:Result Units: mg/mg creat 06/17/2022 10:1 5 AM EST 06/18/2022 3:03 PM EST [facility] External Provider LAB URI NE ORDERABLES Final Result Performing Organization Address [facility] Co de Phone Number [facility] [address] [place] [address] [phone] * Immuniofixation, Urine (06/17/2022 10:15 AM EST) DELVIN Interpretation [facility] Comment:No monoclonal protei ns detected.THIS TEST WAS PERFORMED AT:[facility] [place] [address] ([facility] [address]CWWYKJULIET JASON MD 06/17/2022 10:1 5 AM EST 06/18/2022 3:03 PM EST [facility] External Provider LAB URI NE ORDERABLES Final Result Performing Organization Address City/State/[facility] de Phone Number [facility] [address] [place] [phone] * Hepatitis C Viral RNA, Quantitative, Real-Time PC (06/17/2022 10:14 AM EST) [facility] Hepatitis C Viral Load <15 NOT DETECTED NOT DETECTED IU/mL [facility] HCV Log PCR <1.18 NOT DETECTED NOT DETECTED Log IU/mL [facility] Comment:This test was perfor med using Real-Time Polymerase ChainReaction.Reportable Range: 15 IU/mL to 100,000,000 IU/mL(1.18 Log IU/mL to 8.00 Log IU/mL).The analytical performance characteristics of thisassay have been determined by [employer].The modifications have not been cleared or approved bythe FDA. This assay has been validated pursuant to theCLIA regulations and is used for clinical purposes.For more information on this test, go to:http://education.[employer]/faq/OYB98v3(This link is being provided for informational/educational purposes only.)THIS TEST WAS PERFORMED AT:[employer] [address] ([address])[place] [address]IEDXLTERRY JASON MD 06/17/2022 10:1 4 AM EST 06/17/2022 10:14 AM EST [facility] External Provider LAB BLO OD ORDERABLES Final Result Performing Organization Address [facility] Co de Phone Number [facility] [address] [place] [phone] * Protein Electrophoresis and Pendleton/Lambda Light Chains (06/17/2022 10:14 AM EST) [facility] Prot Elec - Total Protein 7.2 6.1 - 8.1 g/dL [facility] Prot Elec - Albumin 4.2 3.8 - 4.8 g/dL [facility] Prot Elec - Alpha1 0.3 0.2 - 0.3 g/dL [facility] Prot Elec - Alpha2 0.6 0.5 - 0.9 g/dL [facility] Prot Elec - Beta 1 0.5 0.4 - 0.6 g/dL [facility] Prot Elec - Beta 2 0.4 0.2 - 0.5 g/dL [facility] Prot Elec - Gamma 1.2 0.8 - 1.7 g/dL [facility] PES - Abn Protein Band 1 TNP [facility] PES-Abn Protein Band 2 TNP [facility] PES-Abn Protein Band 3 TN[facility] Prot Elec - Interpretation SEE NOTE [facility] Comment:Normal Electrophoret ic PatternTHIS TEST WAS PERFORMED AT:[facility] [place] [address] ([facility] [address]VCYIUTERRY JASON MD 06/17/2022 10:1 4 AM EST 06/17/2022 10:14 AM EST [facility] External Provider LAB BLO OD ORDERABLES Final Result [facility] [address] [place] [phone] * (ABNORMAL) Immunofixation, Serum (06/17/2022 10:14 AM EST) IMMUNOGLOBULIN G 1189 600 - 1540 mg/dL [facility] IMMUNOGLOBULIN A 355(A) 70 - 320 mg/dL [facility] Immunoglobulin M 145 50 - 300 mg/dL [facility] Comment:THIS TEST WAS PERFOR MED AT:[facility] [place] [address] ([facility] [place] [address]JXCODJULIET JASON MD Immunofixation Result SEE NOTE [facility] Comment:Normal pattern. No m onoclonal proteins detected. 06/17/2022 10:1 4 AM EST 06/18/2022 2:59 PM EST [facility] External Provider LAB BLO OD ORDERABLES Final Result Performing Organization Address [facility] Co de Phone Number [facility] [address] [place] [address] [phone] * Hepatitis C Antibody Reflex (06/17/2022 10:14 AM EST) Hepatitis C Antibody Nonreactive Nonreactive [facility] Comment:Antibodies to HCV no t detected; does not exclude early acuteHCV infection. 06/17/2022 10:1 4 AM EST 06/17/2022 10:14 AM EST us [facility] External Provider LAB BLO OD ORDERABLES Final Result Performing Organization Address [facility] Co de Phone Number [facility] [address] [place] [address] [phone] * Lipid Panel with Reflex to Direct LDL (06/17/2022 10:14 AM EST) Triglycerides 154 mg/dL [facility] Comment:Desirable Triglyceri de: less than 150 mg/dLBorderline High Triglyceride 150-199 mg/dLHigh Triglyceride: 200-499 mg/dLVery High Triglyceride: greater than or equal to 5OO mg/dL Cholesterol 176 mg/dL [facility] Comment:Desirable Cholestero l: less than 200 mg/dLBorderline High Cholesterol: 200-239 mg/dLHigh Cholesterol: greater than 239 mg/dL LDL Cholesterol Calculated 119 mg/dl [facility] Comment:Desirable LDL: less than 100 mg/dLNear Optimal/Above Optimal LDL: 110- 129 mg/dLBorderline High LDL: 130-159 mg/dLHigh LDL: 160-189 mg/dLVery High LDL: greater than or equal to 190 mg/dL HDL Cholesterol 27 mg/dL [facility] Comment:Desirable HDL: great er than 40 mg/dL Note: This HDL assay may give artificially low results in patients with liver disease. 06/17/2022 10:1 4 AM EST 06/17/2022 10:14 AM EST [facility] External Provider LAB BLO OD ORDERABLES Final Result Performing Organization Address [facility]/ZIP Co de Phone Number [facility] [address] [place] [address] [phone] * (ABNORMAL) Basic Metabolic Panel (06/17/2022 10:14 AM EST) Pathologist [facility] Sodium 139 135 - 145 mmol/L [facility] Potassium 4.1 3.3 - 5.1 mmol/L [facility] Chloride 107 96 - 108 mmol/L [facility] Carbon Dioxide 25 22 - 29 mmol/L [facility] Anion Gap 11(L) 12 - 20 [facility] Urea Nitrogen (BUN) 19(H) 9 - 16 mg/dL [facility] Creatinine, Serum 1.20 0.5 - 1.4 mg/dL [facility] Estimated Glomerular Filt Rate >60 [facility] Comment:NOTE: For -Am erican individuals, multiply the result by 1.210.Chronic Kidney Disease: Estimated GFR < 60 mL/min/1.91h9Yjiveq Kidney Disease: Estimated GFR < 15 mL/min/1.73m2 Glucose 93 60 - 115 mg/dL [facility] Calcium 9.2 8.4 - 10.2 mg/dL [facility] 06/17/2022 10:1 4 AM EST 06/17/2022 10:14 AM EST [facility] External Provider LAB BLO OD ORDERABLES Final Result [facility] [address] [place] [address] [phone] * CBC (06/17/2022 10:14 AM EST) White Blood Count 5.9 4.8 - 10.8 X10*3/uL [facility] Red Blood Count 5.41 4.60 - 5.80 X10*6/uL [facility] Hemoglobin 15.7 14.0 - 18.0 g/dl [facility] Hematocrit 45.5 42.0 - 52.0 % [facility] Mean Corpuscular Volume 84.1 80.0 - 98.0 fL [facility] Mean Corpuscular Hemoglobin 29.0 27.0 - 33.0 pg [facility] Mean Corpuscular HGB Conc 34.5 31.0 - 36.0 g/dl [facility] Red Cell Distribution Width 13.7 11.0 - 16.0 % [facility] Platelet Count 209 160 - 400 X10*3/uL [facility] Mean Platelet Volume 9.9 9.4 - 12.4 fL [facility] NRBC Pct Auto 0.0 0.0 - 0.2 /100WBC [facility] NRBC Abs Auto 0.000 0.0 - 0.012 X10*3/uL [facility] 06/17/2022 10:1 4 AM EST 06/17/2022 10:14 AM EST us [facility] External Provider LAB BLO OD ORDERABLES Final Result Performing Organization Address City/State/[facility] Co de Phone Number [facility] [address] [place] [address] [phone] documented in this encounter Visit Diagnoses Not on filedocumented in this encounter Care Teams Doughnut Fryer Relationship Specialty Start Date End Date Arsh Gamez MD [address] [place] [phone] PCP - General Internal Medicine 12/18/13 documented as of this encounter
--- OUTSIDE RECORDS SUMMARY | 2024-09-17 13:18 | XMS_ITS | Clinical Summary ---
Author Organization [employer] Address [address] [facility] 7t [place] [address] Care Team Providers Care Instructor Apparel Manufacture Name Role Phone Arsh Gamez MD Primary [...] complication, without long-term current use of insulin ([facility]) TEST BLOOD SUGAR ONCE DAILY 100 strip 3 4 Active amoxicillin (Amoxil) 500 MG capsule Take 4 caps 1 hour prior dental procedure 12 capsule 5 Active omeprazole (PriLOSEC) [address] capsule TOME MARCELINA CAPSULA DOS VECES AL JOHN PAUL BEFORE A MEAL 180 capsule 3 5 Active metFORMIN XR (Glucophage-XR) 500 MG 24 hr tablet TOME MARCELINA TABLETA TODOS [place] AIRPLANE ENGINEER 90 tablet 3 5 Active Active Problems [...] work yet and needs to apply to [facility] (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 Arrington last seen 10/02/2012. He did not think his blood work was indicative of SLE. last seen 12/05/2012 Chronic lower back pain 12/18/2021 Assessment & Plan (06/16/2022 1:58 PM EST): Pt had a previous Hx of right alfonso laminectomy defect at L4-L5 and L5 to S1 most recent MRI of the LS spine done [place] [facility] [place]18/2000 showed no evidence of recurrent [...] Pt back to see Dr Campbell ( proofing machine operator) Pt stopped Amlodipine due GI side [...] Pt back to see Dr Campbell ( proofing machine operator) Pt stopped Amlodipine due GI side [...] Pt back to see Dr Campbell ( proofing machine operator) Pt stopped Amlodipine due GI side effects and dizziness [facility] 06/2022 Normal. Will repeat Plan: continue current regimen Follow up in 4 months in person Assessment & Plan (10/19/2022 8:29 AM EDT): Televisit BP controlled per his report He is on: lisinopril 40. hydralazine 50 mg 2 tabs po TID , Metoprolol succinate ER 25 mg every day, HCTZ discontinued due to pancreatitis Pt back to see Dr Campbell ( proofing machine operator) Pt stopped Amlodipine due GI side effects and dizziness [facility] 06/2022 Normal Plan: continue current regimen Follow up in 4 months Assessment & Plan (06/16/2022 1:52 PM EST): Here for a f/u BP controlled He is on: lisinopril 40. hydralazine 50 mg 2 tabs po TID , Metoprolol succinate ER 25 mg qd a HCTZ discontinued due to pancreatitis Pt back to see Dr Campbell ( proofing machine operator) Pt stopped Amlodipine due GI side effects and dizziness Plan: continue current regimen Follow up in 4 months Gastroesophageal reflux disease without esophagi tis 02/12/2014 Assessment & Plan (06/16/2022 2:01 PM EST): Patient under the care [facility]. Last seen by Dr [...] Type Department Care Team Description 07/07/2024 Refill [facility] [address] [place] [address] Arsh Gamez MD Benign prostatic hyperplasia with urinary frequency 07/03/2024 Refill [facility] [address] [place] [address] Gloria Parrish MD 06/20/2024 3:15 PM EST Office Visit [facility] [address] [place], [place] [phone] Christian Ortiz DMD from Last 3 Months [...] EDT Office Visit [facility] [address] [place] [address] Elizabeth Cordova DMD 11/27/2024 8:00 AM EDT Office Visit [facility] [address] [place] [address] Trena [address] [place] [address] [phone] Health Maintenance Due Date Last Done Comments [...] Procedure Name Priority Date/Time Associated Diagnosis Comments PSA, TOTAL Routine 09/13/2024 10:06 AM EDT CONSULTATION - DIAGNOSTIC SERVICE PROVIDED BY DENTIST [...] complication, without long-term current use of insulin ([facility]) CREATININE, RANDOM URINE Routine 04/19/2024 8:17 AM EST BITEWING - SINGLE RADIOGRAPHIC IMAGE Routine 01/12/2024 2:00 PM EDT Tipped teeth Symptomatic periapical periodontitis PANORAMIC RADIOGRAPHIC IMAGE Routine 01/11/2024 1:00 PM EDT HEPATITIS C ANTIBODY REFLEX Routine 06/17/2022 10:14 AM EST HM COLONOSCOPY Routine 06/11/2020 8:26 AM EST from Last 3 Months or Most Recently Relevant to Health Maintenance Results * PSA,Total (09/13/2024 10:06 AM EDT) Prostate Specific Antigen 1.67 <0.05 - 4.0 ng/mL [facility] Comment:PSA methodology: Shahrzad Hogue i ChemiluminescentMicroparticle Immunoassay (CMIA) 09/13/2024 10:0 6 AM EDT 09/13/2024 10:06 AM EDT us Generic External Data Provider LAB BLOOD ORDERAB LES Final Result Performing Organization Address [facility] Co de Phone Number [facility] [address] [place] [phone] * (ABNORMAL) Lipid Panel, Standard (05/23/2024 8:09 AM EST) Triglycerides 127 <150 mg/dL [facility] Comment:Desirable Triglyceri de: less than 150 mg/dLBorderline High Triglyceride 150-199 mg/dLHigh Triglyceride: 200-499 mg/dLVery High Triglyceride: greater than or equal to 5OO mg/dL Cholesterol 153 <200 mg/dL [facility] Comment:Desirable Cholestero l: less than 200 mg/dLBorderline High Cholesterol: 200-239 mg/dLHigh Cholesterol: greater than 239 mg/dL LDL Cholesterol Calculated 97 <100 mg/dL [facility] Comment:Desirable LDL: less than 100 mg/dLNear Optimal/Above Optimal LDL: 110- 129 mg/dLBorderline High LDL: 130-159 mg/dLHigh LDL: 160-189 mg/dLVery High LDL: greater than or equal to 190 mg/dL HDL Cholesterol 31(L) >40 mg/dL [facility] Comment:Desirable HDL: great er than 40 mg/dL Note: This HDL assay may give artificially low results in patients with liver disease. Blood Venous blood specimen / Unknown 05/23/2024 8:09 AM EST 05/23/2024 8:09 AM EST us Arsh Holl[place] MD LAB BLOOD ORDERABLES Final Result Performing Organization Address City/[facility]/ZIP Co de Phone Number [facility] [address] [place] [phone] [phone] * POCT HGB A1C (05/03/2024 9:01 AM EST) Hemoglobin A1C 5.8 4.0 - 6.0 % QC Media Lot # [id number] Lot# Expiration Date [id number] Blood 05/03/2024 9:01 AM EST Arsh [place] MD POINT OF CARE TEST EN TER/EDIT ORDERABLES Final Result * Creatinine, Random Urine (04/19/2024 8:17 AM EST) Pathologist [facility] Creatinine, Urine 198.06 mg/dL [facility] 04/19/2024 8:17 AM EST 04/19/2024 11:13 AM EST Generic External Data Provider LAB URINE ORDERAB LES Final Result [facility] [address] [place] [phone] * Hepatitis C Antibody Reflex (06/17/2022 10:14 AM EST) Pathologist [facility] Hepatitis C Antibody Nonreactive Nonreactive [facility] Comment:Antibodies to HCV no t detected; does not exclude early acuteHCV infection. 06/17/2022 10:1 4 AM EST 06/17/2022 10:14 AM EST [facility] External Provider LAB BLO OD ORDERABLES Final Result Performing Organization Address City/[facility]/ZIP Co de Phone Number [facility] [address] [place] [address] [phone] * Hm Colonoscopy (06/11/2020 8:26 AM EST) Colonoscopy Normal Normal Historical Provider HEALTH MAINTENANCE Edited Result - Final from Last 3 Months or Most Recently Relevant to Health Maintenance Insurance [place] [phone] [facility] ADULT Care Teams Instructor Apparel Manufacture Relationship Specialty Start Date End Date Arsh Gamez MD [address] [place] [phone] PCP - General Internal Medicine 12/18/13
--- OUTSIDE RECORDS SUMMARY | 2024-09-17 13:18 | XMS_ITS | Encounter Summary ---
Author Organization [employer] [facility] Address [address] [facility] 7t [place] [address] Care Team Providers Care Technical Analyst Name Role Phone Arsh Gamez MD Primary Care Provide r Reason for Visit * Reason Onset Date Comments Results 03/27/2024 Encounter Details Date Type Department Care Team ([facility] st Contact Info) Description 03/27/2024 Telephone [facility] [address] [place], [place] [phone] Arsh Gamez MD [address] [place], [place] [phone] Results Social History Tobacco Use Types Packs/Day [...] 10:00 AM EDT Office Visit [facility] [address] [place] [address] Elizabeth Cordova DMD 11/27/2024 8:00 AM EDT Office Visit [facility] [address] [place] [address] Trena Lozano [address] [place], [place] [phone] documented as of this encounter Visit Diagnoses Not on filedocumented in this encounter Additional Health Concerns Assessment Noted Time PHQ-9 Depression Total Score: 0 09/29/19 24 9:32 AM EDT documented as of this encounter Care Teams Technical Analyst Relationship Specialty Start Date End Date Arsh Gamez MD [address] [place] [address] PCP - General Internal Medicine 12/18/13 documented as of this encounter
--- OUTSIDE RECORDS SUMMARY | 2024-09-17 13:18 | XMS_ITS | Encounter Summary ---
Author Organization [employer] [facility] Address [address] [place] [address] 7t [place] [address] Care Team Providers Care Music Manager Name Role Phone Arsh Gamez MD Primary Care Provide r Reason for Visit * Reason Onset Date Comments Pre Op 07/19/2022 Appointment Request 07/22/2022 r/s Pre Op Encounter Details Date Type Department Care Team ([facility] st Contact Info) Description 07/19/2022 Telephone [facility] [address] [place], [place] [phone] Arsh Gamez MD [address] [place], [place] [phone] Pre Op; Appointment Request (r/s Pre Op [...] am every day. Please contact pt at [phone] * Telephone Encounter - Autumn Ramirez RN [...] 10 am due to him working in [place] for 11am. * Telephone Encounter - Cami Martin RN - 07/19/2022 1:53 PM EST Call to [facility] to inform them of pt's appt. No answer. Left VM with appt details and asked for them to call pt with appointment * Telephone Encounter - Cami Martin RN - 07/19/2022 12:31 PM EST Call from Torrie at [facility]. Pt does not needs labs but [...] requesting a Pre Op appt Location : [address] [place] [phone] Procedure : Knee Transplant Labs: does not know EKG: does not know Anesthesia: Does not know Surgeon: does not know documented in this encounter Plan of Treatment Upcoming Encounters Date Type Department Care Team (Late st Contact Info) Description 09/24/2024 10:00 AM EDT Office Visit [facility] [address] [place] [address] Elizabeth Cordova DMD 11/27/2024 8:00 AM EDT Office Visit [facility] [address] [place] [address] Trena Lozano [address] [place] [address] documented as of this encounter Visit Diagnoses Not on filedocumented in this encounter Care Teams Music Manager Relationship Specialty Start Date End Date Arsh Gamez MD [address] [place] [address] PCP - General Internal Medicine 12/18/13 documented as of this encounter
--- OUTSIDE RECORDS SUMMARY | 2024-09-17 13:18 | XMS_ITS | Encounter Summary ---
Author Organization [employer] [facility] Address [address] [facility] 7t [place] [address] Care Team Providers Care Funeral Sales Manager Name Role Phone Arsh Gamez MD Primary Care Provide r Encounter Details Date Type Department Care Team (Late st Contact Info) Description 07/16/2022 Abstract [facility] [address] [place], [place] [phone] Power Davis DMD [address] [place] [address] Social History Tobacco Use Types Packs/Day Years [...] 09/24/2024 10:00 AM EDT Office Visit [facility] [address] [place] [address] Elizabeth Cordova DMD 11/27/2024 8:00 AM EDT Office Visit [facility] [address] [place] [address] Trena Lozano [address] [place], [place] [phone] documented as of this encounter Visit Diagnoses Not on filedocumented in this encounter Care Teams Funeral Sales Manager Relationship Specialty Start Date End Date Arsh Gamez MD [address] [place] [address] PCP - General Internal Medicine 12/18/13 documented as of this encounter
--- OUTSIDE RECORDS SUMMARY | 2024-09-17 13:18 | XMS_ITS | Encounter Summary ---
Author Organization [employer] [facility] Address [address] [facility] 7t [place] [address] Care Team Providers Care Inspector Hot Forgings Name Role Phone Arsh Gamez MD Primary Care Provide r Encounter Details Date Type Department Care Team (Latest Contact Info) Description 05/18/[address] [facility] [...] [facility] [address] [place] [address] Elizabeth Cordova DMD 11/27/2024 8:00 AM EDT Office Visit [facility] ADULT DENTAL [address] [place] [address] Trena Lozano [address] [place], [place] [phone] documented as of this encounter Visit Diagnoses Not on filedocumented in this encounter Care Teams Inspector Hot Forgings Relationship Specialty Start Date End Date Arsh Gamez MD [address] [place], [place] [phone] PCP - General Internal Medicine 12/18/13 documented as of this encounter
== END 2024-09-17 11:48 | disposition home or self-care (01) ==
LOC: HO.HKA 11:31
PROVIDERS: PCP Internal Medicine; Visit Provider Internal Medicine Hypertension Specialist
DX: N17.9 Acute kidney failure, unspecified (principal); I10 Essential (primary) hypertension
CPT/HCPCS: 99214

== ENCOUNTER → 2024-09-17 11:30 | Outpatient (BNVA) | payer MEDICARE, MEDICAID, SELFPAY | PROVIDERS: PCP Internal Medicine; Visit Provider Internal Medicine Hypertension Specialist | DX: N17.9 Acute kidney failure, unspecified (principal); I10 Essential (primary) hypertension | CPT/HCPCS: 99212 ==

== ENCOUNTER 2024-12-10 09:06 | Outpatient (REF) | payer MEDICARE, MEDICAID, SELFPAY ==
--- OUTSIDE RECORDS SUMMARY | 2024-12-10 09:45 | XMS_ITS | Encounter Summary ---
Author Organization [facility] Address [address] [place] [phone] Phone Care Team Providers Care Wireless Watcher Name Role Phone Arsh Torres MD Primary Care Provide r Reason for Referral * MRI/CAT Scan - Closed Specialty Diagnoses / Procedures Referred By Contac t Referred To Contact Procedures CT Abdomen/Pelvis Outside (No Interpretation) System, Provider Not In, [facility] [address] [address] Referral ID Status Reason Start Date Expiration Date Visits Re quested Visits Authorized [id number] Closed 09/18/2018 09/18/2019 1 1 Encounter Details Date Type Department Care Team (Late st Contact Info) Description 09/18/2018 Ancillary Orders [facility],Outside Imaging [address] [place] [address] System, Provider Not In, [facility] [address] [address] Social History Tobacco Use Types Packs/Day Years Used Date Smoking Tobacco: Never Smokeless Tobacco: Never Alcohol Use Standard Drinks/Week Comments Yes 0 (1 standard drink = 0.6 oz pur e alcohol) rarely Sex and Gender Information Value Date Recorded Sex Assigned at Male 12/23/2018 10:25 AM EDT Legal Sex Male 9:48 PM EDT Gender Identity Male 12/23/2018 10:25 AM EDT Sexual Orientation Straight 12/23/2018 10 :25 AM EDT documented as of this encounter Plan of Treatment Not on file documented as of this encounter Results * CT Abdomen/Pelvis Outside (No Interpretation) (05/26/2016 12:00 AM EST) Narrative SYSTEMGENERATED, DOCUMENTATION - 09/18/2018 1:02 PM EDT This study is for PACS storage only and not for interpretation. us Provider Not In System [facility] OUTSIDE IMAGING W /OUT INTERPRETATION Final Result documented in this encounter Visit Diagnoses Not on filedocumented in this encounter Care Teams Wireless Watcher Relationship Specialty Start Date End Date Arsh Torres MD [address] [place] [address] [address] [place] [phone] [email or web address] PCP - General 03/03/17 documented as of this encounter Additional Source Comments The information contained in this document represents components of the legal health record. It is not the complete legal health record.[facility]
--- OUTSIDE RECORDS SUMMARY | 2024-12-10 09:45 | XMS_ITS | Clinical Summary ---
Author Organization [facility] Address [address] [address] Care Team Providers Care Web Software Engineer Name Role Phone Arsh Sharif MD Primary [...] Hemoglobin A1C 09/14/2022 06/17/2022 Influenza Vaccine (#1) 2025 , 05/14/2021, 01/29/2020, Additional history exists Hepatitis B Vaccine Aged Out 04/17/2001, 01/12/2000, 12/14/1999 No longer eligible based on patient's age to complete this topic Insurance Medicare Medicaid [place] Medicare Medicaid [place] Care Teams Web Software Engineer Relationship Specialty Start Date End Date Arsh Sharif MD [address] [place] [address] [phone] PCP - General Internal Medicine 08/24/21
--- OUTSIDE RECORDS SUMMARY | 2024-12-10 09:45 | XMS_ITS | Encounter Summary ---
Author Organization [employer] Address [address] [facility] 7t [place] [address] Care Team Providers Care Share Dairy Farmer Name Role Phone Arsh Gamez MD Primary Care Provide r Reason for Visit * Reason Onset Date Comments rescheduled appt mistakenly cancelled 05/17/2024 Encounter Details Date Type Department Care Team (Late st Contact Info) Description 05/17/2024 Telephone [facility] [address] [place], [place] [phone] Nickie, Sheyla [address] [place] [address] rescheduled appt mistakenly cancelled Social History Tobacco [...] Care Team (Late st Contact Info) Description 12/28/2024 10:00 AM EDT Office Visit [facility] [address] [place] [phone] Power Davis DMD [address] [place] [address] 01/29/2025 10:30 AM EDT Office Visit [facility] [address] [place] [phone] Arsh Gamez MD [address] [place] [address] 06/13/2025 8:00 AM EST Office Visit [facility] [address] [place] [address] Mari Bloom documented as of this encounter Visit Diagnoses Not on filedocumented in this encounter Additional Health Concerns Assessment Noted Time PHQ-9 Depression Total Score: 0 09/29/19 24 9:32 AM EDT documented as of this encounter Care Teams Share Dairy Farmer Relationship Specialty Start Date End Date Arsh Gamez MD [address] [place] [address] PCP - General Internal Medicine 12/18/13 documented as of this encounter
--- OUTSIDE RECORDS SUMMARY | 2024-12-10 09:45 | XMS_ITS | Data Portability ---
Author Organization [facility], , [facility] Address [address] [place] [address] Care Team Providers Care Merchandise Presentation Associate Name Role Phone RUBEN ALMEIDA Historical Society Director Assessment Encounter Date Assessment Date Assessment LastModified [...] Abnormal Flag Note LastModifiedBy Organization Detail LastModifiedTime 06/03/19 21 06/04/2020 PSA, serum or plasm a PSA 0.79 NG/mL 0.00-4 .00 Not Available [facility] [address] [facility], [place], [address], 06/04/2020 09:17:46 06/12/19 22 06/11/2021 US, [facility] HISTOR Y: [...] amount of left perine phric fluid. Readin saud Physic robert: Miguel Ángel Chandra ms [facility] (Imaging) [address], [place], [address], 06/12/2021 15:41:27 Result Notes None recorded. Problems Name Problem SNOMED Code Status Onset Date Resolution Date Notes Provider Name and Address Organization Details Recorded Time Benign essential hypertension 7616163 Active Karen Szarejko null, [facility] 4 15:56:48 Mixed hyperlipidemia 298029767 Active Karen orozco [facility] 4 15:56:48 Neck pain 47692223 Active 2018 Ailin Denise, PT [address] [place], [address], [facility] 9 10:23:53 Knee pain Active 2018 Ailin Denise, PT [address] [place], [address], [facility] 9 10:24:06 Problem Notes None recorded. Procedures Surgical History Date Name Laterality Status Provider Name and Address Organization Details Recorded Time aIm - Colonoscopy completed Kalpesh Vitale MD [address] [place] [address], [address], [facility] 06/11/2020 11:44:34 9 [address]: Therapeutic Exercise completed Ailin Denise, PT [address] [place], [address], [facility] 05/02/2019 15:30:50 9 87401: Ultrasound (1:1) completed Ailin Denise, PT [address] [place], [address], [facility] 05/02/2019 15:31:29 9 09572: Therapeutic Exercise completed Ailin Denise, PT [address] [place], [address], [facility] 03/29/2019 14:10:53 9 71242: Manual Therapy completed Ailin Denise, PT [address] [place], [address], [facility] 03/29/2019 14:12:07 9 15851: Ultrasound (1:1) completed Ailin Denise, PT [address] [place], [address], [facility] 03/29/2019 14:10:44 9 36846: Therapeutic Exercise completed Ailin Denise, PT [address] [place], [address], [facility] 03/05/2019 08:59:25 9 93995: Ultrasound (1:1) completed Ailinjeevan Denise, PT [address] [place], [address], [facility] 03/05/2019 08:59:51 9 06841: Therapeutic Exercise completed Ailin Denise, PT [address] [place], [address], [facility] 02/28/2019 14:06:30 9 92520: Ultrasound (1:1) completed Ailin Denise, [place], [address], [facility] 02/28/2019 08:39:11 9 52298: Therapeutic Exercise completed Ailin Denise, PT [address] [place], [address], [facility] 02/21/2019 08:53:42 9 31245: Manual Therapy completed Ailin Denise, PT [address] [place], [address], [facility] 02/21/2019 08:54:12 9 45365: Ultrasound (1:1) completed Ailin Denise, PT [address] [place], [address], [facility] 02/21/2019 08:53:37 9 48839: Therapeutic Exercise completed Ailin Denise, PT [address] [place], [address], [facility] 02/13/2019 09:01:25 9 34010: Ultrasound (1:1) completed Ailin Denise, PT [address] [place], [address], [facility] 02/13/2019 09:01:48 9 55521: Therapeutic Exercise completed Ailin Denise, PT [address] [place], [address], [facility] 02/05/2019 09:21:43 9 33612: Ultrasound (1:1) completed Ailin Denise, PT [address] [place], [address], [facility] 02/05/2019 09:32:12 9 79601: Therapeutic Exercise completed Ailin Denise, PT [address] [place], [address], [facility] 01/29/2019 16:37:51 9 48940: Ultrasound (1:1) completed Ailin Denise, PT [address] [place], [address], [facility] 01/29/2019 21:40:52 9 50306: Therapeutic Exercise completed Ailin Denise, PT [address] [place], [address], [facility] 01/23/2019 18:38:30 9 76853: Ultrasound (1:1) completed Ailin Denise, PT [address] [place], [address], [facility] 01/23/2019 18:37:02 9 Physical Activity Counselling completed Ailin Denise, PT [address] [place], [address], [facility] 01/23/2019 08:28:15 9 36932: PT Eval, Moderate Complexity completed Ailin Denise, PT [address] [place], [address], [facility] 01/23/2019 08:28:17 6 07843: PT Evaluation completed Ailin Denise, PT [address] [place], [address], [facility] 12/31/2015 21:07:43 3 Medicare Wellness Visit completed Greer Escobar [facility] 05/01/2013 14:06:49 Imaging Results None recorded. Procedure Notes None recorded. Medical Equipment None [...] hr TOME MARCELINA TABLETA TODOS [employer] active Not Available Not Available No t [...] Tobacco Smoking Status Never Smoker BETTY Bañuelos, [facility] 05/01/2013 14:22:39 Do You Wear A [...] History Condition Response Benign Prostatic Hypertrophy Y Migraine Headaches Y RENAL / GENITOURINARY Y Erectile Dysfunction Y Hyperlipidemia Y Hypertension Y Depression Y Chronic Back Pain Y Past Encounters Encounter ID Performer Location Encounter Start Date Encounter Closed Date Diagnosis/Indication Diagnosis SNOMED-CT Code Diagnosis ICD10 Code Diagnosis Note [id number] Summer Marrufo PT Physical Therapy, [address] [address] 07/25/2009 08:02:15 07/28/2009 13:37:44 [id number] Summer Marrufo PT Physical Therapy, [address] [address] 07/30/2009 12:07:44 07/31/2009 12:18:06 [id number] Summer Marrufo PT Physical Therapy, [address] [address] 08/05/2009 10:36:32 08/05/2009 15:44:53 [id number] Summer Marrufo PT Physical Therapy, [address] [address] 08/12/2009 09:48:25 08/13/2009 11:27:11 [id number] Arsh ni MD , [facility] [address] [place] [address] 05/01/2013 13:49:21 05/01/2013 15:35:17 Adult health examination [id number] Pt is here for a physical exam, his main particular complaint is his acute on chronic low back pain that is not new for him otherwise his physical exam is within normal limits see Risk Assessment and Lifestyle Change Counseling section above Counseling [id number] Low back pain 881681606 Pt here with acute on chronic right sided low back pain intensity 5/10, radiation to buttock and right lower leg, accompanie d by numbness and tingling at time 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 Most recent MRI of the [place] spine done [place] [facility] [place] showed NO evidence of recurrent [...] him on his next visit. Knee pain 37211775 Pt initially c/o knee pain to my [...] involving the adjacent femoral condyle Essential hypertension 94703682 Pt here with HTN currently controlled on [...] from previous EKG done on 03/06/1011 Hyperlipidemia 21242624 Hypertrigl yceridemia : Pt with a Hx of elevated lipids. Most recent Lipid profile done on: 02/09/2012 ([facility]) showed a total cholestero l of: [...] diet and exercise. Gastroesop hageal reflux disease 973563779 GERD: [facility] . Last seen by Dr Vitale on 01/09/2013. He recommende d to continue on Omeprazole 20 mg po BID. Pt still c/o GERD, mainly due to the ammount of medication s for pain he has to take. CTS: Under the care of Dr Mishra at [facility] , treated with injections in [...] that was basically within normal limits. Migraine 96810262 Extens jatinder evaluation in the past by neurology specialsit (Dr nita Lott) last seen in 2006. Back then he recommende d Zomig and Fioricet PRN. Last MRI of brain done [place] [facility] [place]06[place]2003 showed NO acute intracrani al process aside from MILD bilateral maxillary sinus disease. Erythrocytosis 318325371 Hx of polycythem ia: Pt's previous CBC had shown policythem ia, last time his CBC was repeated it had resolved. 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 Most recent MRI of the LS spine done at [facility] [place]18[place]2000 showed NO evidence of recurrent [...] him on his next visit. Essential hypertension 82761150 Pt here with HTN currently controlled on [...] from previous EKG done on 03/06/1011 Hyperlipidemia 78514277 Pt with a Hx of elevated lipids. [...] diet and exercise. Gastroesop hageal reflux disease 606512354 GERD: Pt under the care of [facility] . Last seen by Dr Vitale on 01/09/2013. He recommende d to continue on Omeprazole 20 mg po BID. Pt still c/o GERD, mainly due to the ammount of medication s for pain he has to take. CTS: Under the care of Dr Mishra at [facility] , treated with injections in the [...] was basically within normal limits. Knee pain 95157414 Pt initially c/o knee pain to my [...] bruise involving the adjacent femoral condyle Migraine 35908545 Extens jatinder evaluation in the past by neurology specialsit (Dr nita Lott) last seen in 2006. Back then he recommende d Zomig and Fioricet PRN. Last MRI of brain done at [facility] [place] 05/06/2003 showed NO acute intracrani al process aside from MILD bilateral maxillary sinus disease. Erythrocytosis 339289154 Hx of polycythem ia: Most recent CBC 05/2013 showed a Hgb 18.1 Impaired g lucose tolerance 3118542 discussed the need to adhere to a low carbohydra te diaet. Ulcer of mouth 94984992 Non healing ulcer left cheek for several weeks, etiology ? Please evaluate for considerat ion of biopsy ? [id number] Afua Alexander, OT Physical Therapy, [address] [address] 05/27/2015 08:31:51 05/27/2015 16:00:43 Pain of shoulder region 29206497 M25.017 [id number] Afua Alexander, OT Physical Therapy, [address] [address] 06/03/2015 08:23:46 06/03/2015 11:05:23 Pain of shoulder region 86636425 M25.270 [id number] Afua Alexander, OT Physical Therapy, [address] [address] 06/05/2015 09:58:24 06/05/2015 14:32:44 Pain of shoulder region 45915093 M25.051 [id number] Afua Alexander, OT Physical Therapy, [address] [address] 06/09/2015 11:06:55 06/10/2015 09:06:01 Pain of shoulder region 68324088 M25.459 [id number] Afua Alexander, OT Physical Therapy, [address] [address] 06/11/2015 11:23:55 06/11/2015 13:38:45 Pain of shoulder region 31263147 M25.290 [id number] Afua Alexander, OT Physical Therapy, [address] [address] 06/19/2015 08:51:10 06/19/2015 13:39:11 Pain of shoulder region 69375101 M25.839 [id number] Afua Alexander, OT Physical Therapy, [address] [address] 07/01/2015 08:11:27 07/01/2015 13:25:18 Pain of shoulder region 28031931 M25.085 [id number] Afua Alexander, OT Physical Therapy, [address] [address] 07/03/2015 08:05:53 07/03/2015 13:20:43 Pain of shoulder region 32286310 M25.188 [id number] Afua Alexander, OT Physical Therapy, [address] [address] 07/10/2015 08:21:46 07/10/2015 15:21:32 Pain of shoulder region 46680005 M25.198 [id number] Afua Alexander, OT Physical Therapy, [address] [address] 07/15/2015 08:47:34 07/15/2015 15:26:02 Pain of shoulder region 42872992 M25.007 [id number] Afua Alexander, OT Physical Therapy, [address] [address] 07/17/2015 08:38:46 07/17/2015 14:08:15 Pain of shoulder region 46521593 M25.717 [id number] Afua Alexander, OT Physical Therapy, [address] [address] 07/29/2015 08:45:51 07/29/2015 10:02:26 Pain of shoulder region 56772404 M25.175 [id number] Afua Alexander, OT Physical Therapy, [address] [address] 07/31/2015 08:34:35 07/31/2015 13:09:27 Pain of shoulder region 74114703 M25.710 [id number] Afua Alexander, OT Physical Therapy, [address] [address] 08/07/2015 08:55:08 08/07/2015 16:51:16 Pain of shoulder region 43566823 M25.107 [id number] Afua Alexander, OT Physical Therapy, [address] [address] 09/29/2015 08:27:53 09/29/2015 13:26:18 Pain of shoulder region 64337170 M25.228 [id number] Afua Alexander, OT Physical Therapy, [address] [address] 10/02/2015 08:55:48 10/02/2015 11:01:55 Pain of shoulder region 13577801 M25.990 [id number] Afua Alexander, OT Physical Therapy, [address] [address] 10/09/2015 08:40:54 10/09/2015 14:11:25 Pain of shoulder region 49254367 M25.669 [id number] Afua Alexander, OT Physical Therapy, [address] [address] 10/15/2015 08:56:45 10/15/2015 11:59:15 Pain of shoulder region 05776476 M25.630 [id number] Ailin Denise, PT Physical Therapy, [address] [address] 12/30/2015 13:05:30 01/01/2016 13:09:18 Knee pain 34861890 M25.889 [id number] Ailin Denise, PT Physical Therapy, [address] [address] 01/22/2019 16:12:20 01/23/2019 14:35:11 Neck pain 42145778 M54.2 Knee pain 72895079 M25.5 61 [id number] Ailin Denise, PT Physical Therapy, [address] [address] 01/23/2019 14:06:17 01/24/2019 08:02:25 Knee pain 02957999 M25.561 Neck pain 25056153 M54.2 [id number] Ailin Denise, PT Physical Therapy, [address] [address] 01/29/2019 16:20:45 01/30/2019 08:15:17 Knee pain 04685024 M25.561 Neck pain 48778598 M54.2 [id number] Ailin Denise, PT Physical Therapy, [address] [address] 02/05/2019 08:43:24 02/05/2019 15:06:38 Knee pain 17662431 M25.561 Neck pain 31057078 M54.2 [id number] Ailin Denise, PT Physical Therapy, [address] [address] 02/13/2019 07:56:20 02/13/2019 09:23:33 Knee pain 24517869 M25.561 Neck pain 70654990 M54.2 [id number] Ailin Denise, PT Physical Therapy, [address] [address] 02/21/2019 08:06:59 02/21/2019 13:25:09 Knee pain 78311584 M25.654 [id number] Ailin Denise, PT Physical Therapy, [address] [address] 02/28/2019 08:15:11 02/28/2019 14:51:10 Knee pain 20299608 M25.294 [id number] Ailin Denise PT Physical Therapy, [address] [address] 03/05/2019 08:42:23 03/05/2019 09:33:49 Knee pain 29238603 M25.208 [id number] Ailin Denise PT Physical Therapy, [address] [address] 03/29/2019 13:33:21 03/29/2019 14:33:43 Knee pain 88915554 M25.561 Neck pain 58282416 M54.2 [id number] Ailin Denise PT Physical Therapy, [address] [address] 05/02/2019 14:42:52 05/02/2019 15:35:16 Knee pain 03139121 M25.112 [id number] Kalpesh Vitale MD [facility], [address] [address] 06/11/2020 10:03:01 06/11/2020 12:25:29 Health Concerns Section Related Observation LastModified by Organization Detai ls LastModified Time None Recorded Concern Status LastModified by Organization Details LastModified Time None Recorded Advance Directives Directive None Recorded Payers Insurance Date Sequence Insurance Name Policy Number Policy Fagan Covered Member ID Fagan Member ID Guarantor Name 06/11/2020 1 [place] [employer] Jakob Zimmer [id number] Jakob Zimmer 06/11/2020 2 [place] Jakob Machado [id number] Jakob Zimmer 06/11/2020 [facility] [employer] Jakob Zimmer 06/11/2021 1 [place] [employer] Jakob Scott [id number] Jakob Zimmer 06/08/2021 2 [place] Jakob Zimmer [id number] Jakob Zimmer
[2024-12-10 10:09] LABS: Appearance Urine Clear; Glucose Urine UA Negative (Negative); PH 7.5 (5.0-9.0); Specific Gravity - Urine 1.010 (1.005-1.025); UMIC TRIGGER UA YES
[2024-12-10 10:49] LABS: Total Protein Urine Random 31 mg/dL (<12)
[2024-12-10 10:58] LABS: Prostate Specific Antigen 1.45 ng/mL (<0.05-4.0)
[2024-12-10 11:05] LABS: Anion Gap 12 (12-20); Blood Urea Nitrogen 16 mg/dL (9-16); Calcium 9.7 mg/dL (8.4-10.2); Carbon Dioxide 26 mmol/L (22-29); Chloride 107 mmol/L (96-108); Estimated Glomerular Filt Rate 48; Potassium 3.8 mmol/L (3.3-5.1); Sodium 141 mmol/L (135-145)
== END 2024-12-10 09:07 | disposition home or self-care (01) ==
LOC: HO.LAB 09:06
PROVIDERS: Absent Provider Internal Medicine Hypertension Specialist; PCP Internal Medicine; Visit Provider Nurse Practitioner Family
DX: I10 Essential (primary) hypertension (principal); E13.9 Other specified diabetes mellitus without complications; N17.9 Acute kidney failure, unspecified; N40.0 Benign prostatic hyperplasia without lower urinary tract symptoms; N41.0 Acute prostatitis
CPT/HCPCS: 36415; 80048; 81001; 81003; 82570; 84153; 84156

== ENCOUNTER 2024-12-17 10:32 | Outpatient (AMB) | payer MEDICARE, MEDICAID, SELFPAY ==
--- NOTE | 2024-12-17 10:34 | HO.NEPHOV_ITS ---
Vital Signs 12/17/24 10:35 Height 5 ft 5 in Weight 146 lb 8 oz BMI 24.4 BP 122/81 Blood Pressure Location Rt brachial Position Sitting Pulse 60 Pulse Source Pulse Oximeter Pulse Oximetry (%) 96 Oxygen Delivery Method Room Air Intake Visit Reasons: FU/ Conf Ice Cream Freezer Required: No Accompanied by: Self / Same As Patient Allergies nut - unspecified (NUTS) Allergy (Intermediate, Verified 12/17/24 10:36) ITCHY THROAT nitroglycerin (NITROGLYCERIN) Adverse Reaction (Unknown, Verified 12/17/24 10:36) HEADACHES BREAD Allergy (Mild, Uncoded 06/27/24 10:14) RUNNY NOSE Lopid Allergy (Unknown, Uncoded 06/27/24 10:14) Unknown nsaids Allergy (Unknown, Uncoded 06/27/24 10:14) Unknown Percocet Allergy (Unknown, Uncoded 06/27/24 10:14) Unknown Medication List - Last Reconciled 12/17/24 by Wyatt Mccoy MD amlodipine 5 mg PO DAILY finasteride 5 mg PO DAILY fluticasone propionate 50 mcg/actuation 1 spray intranasal DAILY PRN hydralazine 75 mg PO TID hydrochlorothiazide 12.5 mg PO DAILY Held on 09/15/23. Instructions: Resume on 09/22/23. lisinopril 10 mg PO DAILY metformin ER 500 mg PO DAILY@1800 metoprolol succinate ER 25 mg PO DAILY omeprazole 20 mg PO BID prednisone 20 mg PO DAILY 5 days sennosides (Senna Lax) 17.2 mg (2 x 8.6 mg) PO BEDTIME PRN tamsulosin 0.8 mg (2 x 0.4 mg) PO DAILY Do you need a note to return to daycare/school/sports/work: No HPI Comments Details: 63-year-old male with history of hypertension, yiq-wulckgf-xyplrqteq type 2 diabetes, hyperlipidemia, and BPH following with [facility] urology / , presented to the ED for evaluation of right lower quadrant and flank/low back pain as well as nausea, vomiting, subjective fevers and chills ongoing for several days. He was found to have acute kidney injury. ALESSANDRA was most likely due to the combination of hypoperfusion in the setting of sepsis/bacteremia and he also had a component of urinary retention. Lopez catheter was inserted. DAVID inhibitors, HCTZ and meloxicam were held. With IV hydration renal function returned to baseline. He was discharged home with a Lopez. He was seen by Dr. Salvador 2 days ago. Lopez has been removed. He still has some dysuria but no difficulty. Serum creatinine has returned to baseline of 1.12. He does have non nephrotic proteinuria in the setting of diabetes mellitus 05/29/24;Here for f/u; Had difficulty urinating with back pain 09/17/24 Seen by in Jun. Treated with a course of Bactrim and Mobic Feels better now No new urinary issues Was given Lisonopril 40 mg by pharmacy BP has been low Today he did not take Lisinopril Claims that his BP was better with 10 mg 12/17/24 Feels dizzy when he takes HCTZ Did not take any anti hypertensives this morning BP is in normal range [facility] Medical History Prostatitis Hyperlipidemia BPH (benign prostatic hyperplasia) Diabetes 1.5, managed as type 2 HTN (hypertension) Surgical History History of knee surgery Social History Household Members: Spouse, Family and Children Housing: Apartment Do you presently have visiting nurse or other home services: No Patient Tobacco Use Status: Never used Tobacco e-Cigarette/Vaping Use: Never Used service: No Physical Exam Vital Signs: Last Vital Signs Pulse 60 12/17/24 10:35 BP 122/81 12/17/24 10:35 Pulse Ox 96 12/17/24 10:35 Oxygen Delivery Method Room Air 12/17/24 10:35 BMI result Body Mass Index 24.4 Comfortable Neck supple no JVD. Lungs entry equal no rales. Heart S1-S2 heard no gallop or rub. Abdomen soft nontender. Neuro alert awake oriented. No asterixis. Extremities no edema. Results Reviewed Nephrology Results: Hgb, (14.0-18.0) 15.2 g/dl 04/19/24 WBC, (4.8-10.8) 7.7 X10*3/uL 04/19/24 Plt Count, (160-400) 263 X10*3/uL 04/19/24 Sodium, (135-145) 141 mmol/L 12/10/24 Potassium, (3.3-5.1) 3.8 mmol/L 12/10/24 Chloride, (96-108) 107 mmol/L 12/10/24 Carbon Dioxide, (22-29) 26 mmol/L 12/10/24 BUN, (9-16) 16 mg/dL 12/10/24 Creatinine, (0.5-1.4) 1.48 mg/dL H 12/10/24 Calcium, (8.4-10.2) 9.7 mg/dL 12/10/24 Urine Protein, (Neg-Trace) 30 (1+) mg/dL H 12/10/24 Urine Creatinine 85.29 mg/dL 12/10/24 Renal US 06/05/24 Assessment & Plan Assessment & Plan (1) ALESSANDRA (acute kidney injury): Code(s): N17.9 - Acute kidney failure, unspecified Category: Medical (2) HTN (hypertension): Code(s): I10 - Essential (primary) hypertension Category: Medical Plan 64-year-old man with ALESSANDRA superimposed on mild CKD in a setting of longstanding diabetes mellitus and enlarged prostate with non nephrotic range proteinuria. The ALESSANDRA was due to hypoperfusion combined with possible urinary retention. Renal function is back to baseline. Cr down to 1.2 Baseline workup for proteinuria was unremarkable Blood pressure is well controlled. I will continue with DAVID inhibitor for renal protection. Change Lisinopril to 10 mg QD ( from 40 mg) We would avoid NSAIDs due to the risk of hypoperfusion in combination with DAVID inhibitors. I have encouraged him to increase p.o. fluid intake Stay on low-sodium diet. Follow with as well 12/17/24 ALESSANDRA due to hypoperfusion STOP LIsinopril Stop HCTZ due to low BP/dizziness/ALESSANDRA REcheck Creatinine is 3 weeks Orders: Orders Basic Metabolic Panel 3 Weeks N17.9 - Acute kidney failure, unspecified Medications: Discontinued lisinopril Discontinued Reason: Doctor's Order 10 mg PO DAILY 90 tabs 0RF Coding Level of Care Code Est Pt Level 4 (32142) Diagnoses ALESSANDRA (acute kidney injury) N17.9 HTN (hypertension) I10
[2024-12-17 10:35] VITALS: BP 122/81; PULSE 60; O2SAT 96; BMI 24.4
--- OUTSIDE RECORDS SUMMARY | 2024-12-17 11:19 | XMS_ITS | Clinical Summary ---
Author Organization [facility] Address [address] [place] [address] Care Team Providers Care Wood Type Finisher Name Role Phone Arsh Sharif MD Primary [...] Medicaid [place] Care Teams Wood Type Finisher Relationship Specialty Start Date End Date Arsh Sharif MD [address] [place] [address] [id number] PCP - General Internal Medicine 08/24/21
--- OUTSIDE RECORDS SUMMARY | 2024-12-17 11:19 | XMS_ITS | Encounter Summary ---
Author Organization [facility] Address [address] [place] [address] Phone Care Team Providers Care Sewer Line Photo Inspector Name Role Phone Arsh Torres MD Primary Care Provide r Reason for Referral * MRI/CAT Scan - Closed Specialty Diagnoses / Procedures Referred By Contac t Referred To Contact Procedures CT Abdomen/Pelvis Outside (No Interpretation) System, Provider Not In, [facility] [address] [address] Referral ID Status Reason Start Date Expiration Date Visits Re quested Visits Authorized [id number] Closed 09/18/2018 09/18/2019 1 1 Encounter Details Date Type Department Care Team (Late st Contact Info) Description 09/18/2018 Ancillary Orders [facility],Outside Imaging [address] [place] [address] System, Provider Not In, [facility] [address] [address] Social History Tobacco Use Types Packs/Day Years [...] on filedocumented in this encounter Care Teams Sewer Line Photo Inspector Relationship Specialty Start Date End Date Arsh Torres MD [address] [place] [address] [address] [place] [address] [email or web address] PCP - General 03/03/17 documented as of this encounter Additional Source Comments The information contained in this document represents components of the legal health record. It is not the complete legal health record.[facility]
--- OUTSIDE RECORDS SUMMARY | 2024-12-17 11:19 | XMS_ITS | Encounter Summary ---
Author Organization [employer] Address [address] [facility] 7t [place] [address] Care Team Providers Care Psychiatric Nurse Practitioner Name Role Phone Arsh Gamez MD Primary Care Provide r Reason for Visit * Reason Onset Date Comments rescheduled appt mistakenly cancelled 05/17/2024 Encounter Details Date Type Department Care Team (Late st Contact Info) Description 05/17/2024 Telephone [facility] ADULT DENT[facility] [address] [place], [place] [phone] Nickie, Sheyla [address] [place] [address] rescheduled appt mistakenly cancelled Social History Tobacco [...] Care Team (Late st Contact Info) Description 12/18/2024 9:00 AM EDT Office Visit [facility] [address] [place] [address] Arsh Gamez MD [address] [place] [address] 12/28/2024 10:00 AM EDT Office Visit [facility] [address] [place] [address] Power Davis DMD [address] [place] [address] 06/13/2025 8:00 AM EST Office Visit [facility] [address] [place] [address] Mari Bloom documented as of this encounter Visit Diagnoses Not on filedocumented in this encounter Additional Health Concerns Assessment Noted Time PHQ-9 Depression Total Score: 0 09/29/19 24 9:32 AM EDT documented as of this encounter Care Teams Psychiatric Nurse Practitioner Relationship Specialty Start Date End Date Arsh Gamez MD [address] [place] [address] PCP - General Internal Medicine 12/18/13 documented as of this encounter
== END 2024-12-17 10:47 | disposition home or self-care (01) ==
LOC: HO.HKA 10:33
PROVIDERS: PCP Internal Medicine; Visit Provider Internal Medicine Hypertension Specialist
DX: N17.9 Acute kidney failure, unspecified (principal); I10 Essential (primary) hypertension
CPT/HCPCS: 99214

== ENCOUNTER → 2024-12-17 10:32 | Outpatient (BNVA) | payer MEDICARE, MEDICAID, SELFPAY | PROVIDERS: PCP Internal Medicine; Visit Provider Internal Medicine Hypertension Specialist | DX: E10.22 Type 1 diabetes mellitus with diabetic chronic kidney disease (principal); I10 Essential (primary) hypertension; N17.9 Acute kidney failure, unspecified; N18.9 Chronic kidney disease, unspecified | CPT/HCPCS: 99212 ==

== ENCOUNTER 2024-12-18 09:57 | Outpatient (AMB) | payer MEDICARE, MEDICAID, SELFPAY ==
--- NOTE | 2024-12-18 10:22 | MHC.OFFVIS ---
Intake Visit Reasons: follow up/PSA(set) Intake Note: Patient is present for PSA F/U Urology Medication:FINATSERIDE, TAMSULOSIN Antibiotic Allergy:NITROGLYCERIN Blood Thinner:NONE TODAY'S PVR:0ML'S Industrial Technologist Required: No Allergies nut - unspecified (NUTS) Allergy (Intermediate, Verified 12/18/24 11:16) ITCHY THROAT nitroglycerin (NITROGLYCERIN) Adverse Reaction (Unknown, Verified 12/18/24 11:16) HEADACHES BREAD Allergy (Mild, Uncoded 12/18/24 11:16) RUNNY NOSE Lopid Allergy (Unknown, Uncoded 12/18/24 11:16) Unknown nsaids Allergy (Unknown, Uncoded 12/18/24 11:16) Unknown Percocet Allergy (Unknown, Uncoded 12/18/24 11:16) Unknown Medication List - Last Reconciled 12/18/24 by ARELIS Castellanos- amlodipine 5 mg PO DAILY finasteride 5 mg PO DAILY hydralazine 75 mg PO TID metformin ER 500 mg PO DAILY@1800 metoprolol succinate ER 25 mg PO DAILY omeprazole 20 mg PO BID tamsulosin 0.8 mg (2 x 0.4 mg) PO DAILY HPI Comments Details: Jakob is a pleasant 64-year-old male patient of Dr. Torres. He has a past medical history of prostatitis, hyperlipidemia, BPH, type 2 diabetes, and hypertension. He presents to the office today for follow-up. In discussion with the patient today he reports compliance with finasteride and Flomax as prescribed. He does continue to experience lower urinary tract symptoms intermittently exacerbated by sexual activity. He does have a longstanding history of prostate issues and had previously been following up with [facility] Dr. Salvador for many years. He discusses noting perineal pressure and lower urinary tract symptoms of intermittent dysuria, debris when urinating, and urinary hesitancy. Previous MELVA noted right side of the prostate was boggy otherwise no masses or nodules palpated. He discusses feeling NSAIDs or helpful in treatment of these symptoms however given his ongoing proteinuria he has been educated to avoid NSAIDs. Previous workup has included renal ultrasound 06/09 bilateral kidneys are normal in size, contour, and echogenicity. No calculi, lesions, and or hydronephrosis noted. Left kidney with lower pole simple cysts measuring 1.0 cm. Patient with MRI of the prostate 01/06 noting no definite multi parametric MRI evidence of clinically significant prostate cancer. Equivocal 0.9 cm lesion in the right mid transition zone and 1.8 cm slightly today to hypointense, ill-defined area in the left posterior transition zone base. Both lesions are a PI-RADS 2. Indeterminate. Prostate measured 43 mL at time of the MRI. CT abdomen and pelvis with contrast 09/06 The prostate gland is markedly enlarged measuring 6.3 x 7.2 cm. It is heterogeneous in attenuation and contains multiple calcifications. We discussed at length potential causes of lower urinary tract symptoms patient is experiencing. He is enquiring in office cystoscopy to further assess if he is a candidate for prostate procedure. PSAs are as follows: 05/08 3.1, 12/07 1.5 In office urinalysis results reviewed with the patient today. PVR 0 mL. We discussed bladder triggers/irritants. He denies foul smelling urine, changes to urinary stream, flank pain, fever, and or chills. [facility] Medical History Prostatitis Hyperlipidemia BPH (benign prostatic hyperplasia) Diabetes 1.5, managed as type 2 HTN (hypertension) Surgical History History of knee surgery Social History Household Members: Spouse, Family and Children Housing: Apartment Do you presently have visiting nurse or other home services: No Patient Tobacco Use Status: Never used Tobacco e-Cigarette/Vaping Use: Never Used service: No Review of Systems Const All systems reviewed & are unremarkable except as noted in HPI and below Physical Exam Const General: cooperative, healthy appearing, comfortable, no acute distress, well developed, alert and awake Orientation/consciousness: patient oriented x3 Limitations: no limitations HEENT Head: Yes normal to inspection, Yes normocephalic and Yes atraumatic Ears: hearing grossly normal bilaterally Eyes General: appearance normal, both eyes and all related structures Neck Neck: Yes normal visual inspection and Yes trachea midline Chest Chest palpation & inspection: normal inspection of the chest Resp Effort & Inspection: normal respiratory effort and able to speak in complete sentences Cardio Rate: regular rate GI Inspection: Yes normal to inspection General: Yes no CVA tenderness Back/Spine/Pelvis Back: no CVA tenderness Skin General skin exam: no rashes or lesions noted Neuro General: patient oriented x3 Extrem General: Yes normal to inspection Psych Appearance: grossly normal and well kempt Mental Status: mental status grossly normal Speech and movement: Normal speech and movement present and Clear speech present Affect: normal affect Attitude: cooperative Thought process: Normal thought process present Thought content: Normal thought content present Insight: Fair insight present (Psych) Judgement: Fair judgement present (Psych) Office Procedures Post Void Residual Post Residual Void Post Void Residual (PVR): 0 14902-[id number] Void Residual by ultrasound Results AMB Urinalysis, Automated UA Leukoctes 0 Alesia/uL Last Edit by LEAH Cam on 12/18/24 10:34 UA Nitrite Negative Last Edit by James Pickens [facility] on 12/18/24 10:34 UA Urobilinogen 0.2 mg/dL Last Edit by James Pickens [facility] on 12/18/24 10:34 UA Protein 30 mg/dL Last Edit by James Pickens [facility] on 12/18/24 10:34 UA pH 7.5 Last Edit by James Pickens [facility] on 12/18/24 10:34 UA Blood 0 Elías/uL Last Edit by James Pickens [facility] on 12/18/24 10:34 UA Specific Beauty 1.010 Last Edit by James Pickens [facility] on 12/18/24 10:34 UA Ketone Negative Last Edit by James Pickens [facility] on 12/18/24 10:34 UA Bilirubin 0 mg/dL Last Edit by James Pickens [facility] on 12/18/24 10:34 UA Glucose 0 mg/dL Last Edit by James Pickens [facility] on 12/18/24 10:34 Results Reviewed Results Reviewed: Laboratory Last Values Urine pH (Auto) 7.5 12/18/24 10:33 Specific Beauty (Auto) 1.010 12/18/24 10:33 Urine Protein (Auto) 30 mg/dL 12/18/24 10:33 Glucose (UA)(Auto) 0 mg/dL 12/18/24 10:33 Urine Ketones (Auto) Negative 12/18/24 10:33 Urine Blood (Auto) 0 Elías/uL 12/18/24 10:33 Urine Nitrite (Auto) Negative 12/18/24 10:33 Urine Bilirubin (Auto) 0 mg/dL 12/18/24 10:33 Urine Urobilinogen (Auto) 0.2 mg/dL 12/18/24 10:33 Leukocyte Esterase (Auto) 0 Alesia/uL 12/18/24 10:33 Assessment & Plan Assessment & Plan (1) Enlarged prostate: Code(s): N40.0 - Benign prostatic hyperplasia without lower urinary tract symptoms Category: Medical (2) Lower urinary tract symptoms: Code(s): R39.9 - Unspecified symptoms and signs involving the genitourinary system Category: Medical Plan In office urinalysis results with the patient today; as noted above. PVR 0 mL. Recent PSA results with the patient today; as noted above. We discussed potential causes of lower urinary tract symptoms patient is experiencing intermittently; we discussed pelvic floor therapy and or prostate massage to assist with these symptoms. Will schedule for in office cystoscopy to further assess if he is a candidate for prostate procedure as he wishes. We did discussed bladder triggers and irritants. Follow-up next available in office cystoscopy; or sooner with any issues, concerns, and or questions. Orders: Orders AMB Urinalysis Automated Today Z13.9 - Encounter for screening, unspecified Patient Instructions: The patient had an opportunity to ask questions regarding the treatment plan. All questions were answered. Physical exam, labs, and imaging were discussed and reviewed in detail. As well as risks, benefits, and discussion of treatment choices. No major barriers to understanding were identified. The patient expressed understanding and agreement with the above treatment plan. The patient was made aware they should contact our office by phone for worsening of their current condition, the appearance of new symptoms, or with any questions or concerns. Compliance is encouraged with any medications and follow up testing that is ordered. It is a privilege to be allowed the opportunity to participate in? your urological care.? Again, if you have any questions or concerns If you have any questions or concerns please do not hesitate to contact me. The office is [phone]. This note is constructed using voice recognition software. While every effort has been made to ensure accuracy custom dressmaker errors may have been included. Yours sincerely, Samina Zavala, SENIOR SOFTWARE ANALYST-BC Coding Level of Care Code Est Pt Level 3 (55640) Complex EM visit Add On G2211 Diagnoses Enlarged prostate N40.0 Lower urinary tract symptoms R39.9 CPT Codes Post Residual Void - PVR CPT Code: 14356-Kwyl Void Residual by ultrasound ([id number])
--- OUTSIDE RECORDS SUMMARY | 2024-12-18 10:26 | XMS_ITS | Encounter Summary ---
Author Organization [employer] Address [address] [facility] 7t [place] [address] Care Team Providers Care Blood Bank Laboratory Technologist Name Role Phone Arsh Gamez MD Primary Care Provide r Reason for Visit * Reason Onset Date Comments rescheduled appt mistakenly cancelled 05/17/2024 Encounter Details Date Type Department Care Team (Late st Contact Info) Description 05/17/2024 Telephone [facility] ADULT DENTAL [address] [place], [place] [phone] Nickie, Sheyla [address] [place] [address] rescheduled appt mistakenly cancelled Social History Tobacco [...] Description 12/28/2024 10:00 AM EDT Office Visit [facility] ADULT [facility]ENT[facility] [address] [place] [address] Power Davis, OLIVA [address] [place] [address] 06/13/2025 8:00 AM EST Office Visit [facility] ADULT D[facility] [address] [place] [address] Mari Bloom documented as of this encounter Visit Diagnoses Not on filedocumented in this encounter Additional Health Concerns Assessment Noted Time PHQ-9 Depression Total Score: 0 09/29/19 24 9:32 AM EDT documented as of this encounter Care Teams Blood Bank Laboratory Technologist Relationship Specialty Start Date End Date Arsh Gamez MD [address] [place] [address] PCP - General Internal Medicine 12/18/13 documented as of this encounter
--- OUTSIDE RECORDS SUMMARY | 2024-12-18 10:26 | XMS_ITS | Encounter Summary ---
Author Organization [facility] Address [address] [place] [address] Phone Care Team Providers Care Cheese Production Supervisor Name Role Phone Arsh Torres MD Primary Care Provide r Reason for Referral * MRI/CAT Scan - Closed Specialty Diagnoses / Procedures Referred By Contac t Referred To Contact Procedures CT Abdomen/Pelvis Outside (No Interpretation) System, Provider Not In, [facility] [address] [address] Referral ID Status Reason Start Date Expiration Date Visits Re quested Visits Authorized [id number] Closed 09/18/2018 09/18/2019 1 1 Encounter Details Date Type Department Care Team (Late st Contact Info) Description 09/18/2018 Ancillary Orders [facility],Outside Imaging [address] [place] [address] System, Provider Not In, [facility] [address] [address] Social History Tobacco Use Types Packs/Day Years [...] on filedocumented in this encounter Care Teams Cheese Production Supervisor Relationship Specialty Start Date End Date Arsh Torres MD [address] [place] [address] [address] [place] [address] [email or web address] PCP - General 03/03/17 documented as of this encounter Additional Source Comments The information contained in this document represents components of the legal health record. It is not the complete legal health record.[facility]
--- OUTSIDE RECORDS SUMMARY | 2024-12-18 10:27 | XMS_ITS | Clinical Summary ---
Author Organization [facility] Address [address] [place] [address] Care Team Providers Care Procedure Tech Name Role Phone Arsh Sharif MD Primary [...] Medicaid [place] Care Teams Procedure Tech Relationship Specialty Start Date End Date Arsh Sharif MD [address] [place] [address] [phone] PCP - General Internal Medicine 08/24/21
== END 2024-12-18 11:08 | disposition home or self-care (01) ==
LOC: HO.HUSH 09:58
PROVIDERS: PCP Internal Medicine; Visit Provider Nurse Practitioner Family
DX: N40.0 Benign prostatic hyperplasia without lower urinary tract symptoms (principal); R39.9 Unspecified symptoms and signs involving the genitourinary system; Z13.9 Encounter for screening, unspecified
CPT/HCPCS: 99213; G2211

== ENCOUNTER → 2024-12-18 09:57 | Outpatient (BNVA) | payer MEDICARE, MEDICAID, SELFPAY | PROVIDERS: PCP Internal Medicine; Visit Provider Nurse Practitioner Family | DX: N40.0 Benign prostatic hyperplasia without lower urinary tract symptoms (principal); R39.9 Unspecified symptoms and signs involving the genitourinary system; Z13.9 Encounter for screening, unspecified | CPT/HCPCS: 51798; 81003; 99212 ==

== ENCOUNTER → 2024-12-25 19:24 | Outpatient (BNV) | payer MEDICARE, MEDICAID, SELFPAY | PROVIDERS: PCP Internal Medicine; Visit Provider Radiology Diagnostic Radiology | DX: M47.26 Other spondylosis with radiculopathy, lumbar region (principal) | CPT/HCPCS: 72148 ==

== ENCOUNTER 2024-12-25 19:30 | Outpatient (REF) | payer MEDICARE, MEDICAID, SELFPAY ==
--- NOTE | ~2024-12-25 | MR_ITS ---
EXAMINATION: MR LUMBAR SPINE WITHOUT CONTRAST CLINICAL INFORMATION: Acute on chronic low back pain COMPARISON: None available. TECHNIQUE: MRI of the lumbar spine was obtained using routine sequences without contrast. FINDINGS: Last rib-bearing vertebra labeled T12. Paramagnetic field distortion secondary to metallic hardware L4-5 and L5-S1 levels. Bone marrow STIR signal in the inferior endplate of T12. Bone marrow inhomogeneity the axial skeleton and the included bony pelvis. Multilevel small marginal osteophyte formation and disc desiccation from T12-L1 to L3-4. Normal alignment. Arthrodesis, L4-5 and L5-S1. Conus medullaris ends at pedicle of L1 with normal signal. T11-12: No disc herniation. No neuroforamina stenosis. T12-L1: Facet joint hypertrophy. No disc herniation. No neuroforamina stenosis. L1-2: No disc herniation. Bilateral facet joint hypertrophy. No compression upon neural elements. L2-3: No disc herniation. Facet joint hypertrophy. Bilateral neuroforamina narrowing. Reduced AP diameter of the thecal sac. L3-4: Broad-based disc bulging. Facet joint and ligamentum flavum hypertrophy. Reduced AP diameter of the thecal sac. Bilateral neuroforamina narrowing encroaching the neural elements both thecal sac and exiting nerve roots. L4-5: Right hemilaminectomy. No central spinal canal stenosis. Facet joint hypertrophy. Bilateral neuroforamina narrowing likely encroaching the exiting nerve roots. L5-S1: No central spinal canal or neuroforamina stenosis. Asymmetric volume loss left psoas muscle. No prevertebral compartment hematoma, mass or fluid collection. There is no grouping or clumping of the neural elements of the filum terminalis/thecal sac. MR/MR lumbar spine wo con IMPRESSION: Multilevel lumbar spondylosis pronounced at L3-4 resulting in central spinal canal and bilateral neuroforamina stenosis encroaching the neural elements. Bilateral neuroforamina narrowing at L4-5 on a degenerative basis. Electronically signed by: Epi Sandoval MD 12/26/2024 07:13 AM EDT
--- OUTSIDE RECORDS SUMMARY | 2024-12-25 19:33 | XMS_ITS | Encounter Summary ---
Author Organization [employer] Address [address] [facility] 7t [place] [address] Care Team Providers Care Compressor Station Operator Name Role Phone Arsh Gamez MD Primary Care Provide r Reason for Visit * Reason Onset Date Comments rescheduled appt mistakenly cancelled 05/17/2024 Encounter Details Date Type Department Care Team (Late st Contact Info) Description 05/17/2024 Telephone [facility] ADULT DENTAL [address] [place], [place] [phone] Nickie, Sheyla [address] [place] [address] rescheduled appt mistakenly cancelled Social History Tobacco [...] Description 12/28/2024 10:00 AM EDT Office Visit [facility] ADULT DENTAL [address] [place] [address] Power Davis, OLIVA [address] [place] [address] 06/13/2025 8:00 AM EST Office Visit [facility] ADULT DENTAL [address] [place] [address] Mari Bloom documented as of this encounter Visit Diagnoses Not on filedocumented in this encounter Additional Health Concerns Assessment Noted Time PHQ-9 Depression Total Score: 0 09/29/19 24 9:32 AM EDT documented as of this encounter Care Teams Compressor Station Operator Relationship Specialty Start Date End Date Arsh Gamez MD [address] [place] [address] PCP - General Internal Medicine 12/18/13 documented as of this encounter
--- OUTSIDE RECORDS SUMMARY | 2024-12-25 19:33 | XMS_ITS | Clinical Summary ---
Author Organization [facility] Address [address] [place] [address] Care Team Providers Care Pharmacist Technician Name Role Phone Arsh Sharif MD Primary Care Provider [phone] Allergies No known active allergies Medications meloxicam [...] Medicaid [place] Medicare Medicaid [place] Care Teams Pharmacist Technician Relationship Specialty Start Date End Date Arsh Sharif MD [address] [place] [phone] PCP - General Internal Medicine 08/24/21
== END 2024-12-25 19:31 | disposition home or self-care (01) ==
LOC: HO.MRI 19:30
PROVIDERS: PCP Internal Medicine; Visit Provider Internal Medicine
DX: M54.50 Low back pain, unspecified (principal); G89.29 Other chronic pain
CPT/HCPCS: 72148

== ENCOUNTER 2025-01-15 08:52 | Outpatient (REF) | payer MEDICARE, MEDICAID, SELFPAY ==
--- OUTSIDE RECORDS SUMMARY | 2025-01-15 09:39 | XMS_ITS | Encounter Summary ---
Author Organization [employer] Address 75 [facility] 7t [place] [address] Care Team Providers Care Tube Coremaker Name Role Phone Arsh Gamez MD Primary Care Provide r Reason for Visit * Reason Comments Med Refill Encounter Details Date Type Department Care Team ([facility] st Contact Info) Description 04/06/2024 Refill [facility] ADULT DENTAL [address] [place], [place] [phone] Power Davis, OLIVA [address] [place] [address] Social History Tobacco Use Types Packs/Day Years [...] Care Team (Late st Contact Info) Description 06/13/2025 8:00 AM EST Office Visit [facility] ADULT DENTAL [address] [place] [address] Mari Bloom documented as of this encounter Visit Diagnoses Not on filedocumented in this encounter Additional Health Concerns Assessment Noted Time PHQ-9 Depression Total Score: 0 09/29/19 24 9:32 AM EDT documented as of this encounter Care Teams Tube Coremaker Relationship Specialty Start Date End Date Arsh Gamez MD [address] [place] [address] PCP - General Internal Medicine 12/18/13 documented as of this encounter
--- OUTSIDE RECORDS SUMMARY | 2025-01-15 09:39 | XMS_ITS | Encounter Summary ---
Author Organization [employer] Address 75 [facility] 7t [place] [address] Care Team Providers Care Universal Grinder Tool Name Role Phone Arsh Gamez MD Primary Care Provide r Reason for Visit * Reason Comments Med Refill Encounter Details Date Type Department Care Team ([facility] st Contact Info) Description 05/11/2024 Refill [facility] [address] [place], [place] [phone] Arsh Gamez MD [address] [place], [place] [phone] Need for prophylactic antibiotic Social History Tobacco [...] Description 06/13/2025 8:00 AM EST Office Visit [facility] ADULT DENTAL [address] [place] [address] Mari Bloom documented as of this encounter Visit Diagnoses Diagnosis Need for prophylactic antibiotic Encounter for long-term (current) use of antibiotics documented in this encounter Additional Health Concerns Assessment Noted Time PHQ-9 Depression Total Score: 0 09/29/19 24 9:32 AM EDT documented as of this encounter Care Teams Universal Grinder Tool Relationship Specialty Start Date End Date Arsh Gamez MD [address] [place] [address] PCP - General Internal Medicine 12/18/13 documented as of this encounter
--- OUTSIDE RECORDS SUMMARY | 2025-01-15 09:39 | XMS_ITS | Encounter Summary ---
Author Organization [facility] Address [address] [place] [address] Phone Care Team Providers Care Imaging Tech Name Role Phone Arsh Torres MD Primary Care Provide r Encounter Details Date Type Department Care Team (Latest Contact Info) Description 05/12/2020 Transcribe Orders Virtual Department [address] [place] [address] Reymundo Salvador MD [address] [place] [address], [address] [address] [email or web address] Hesitancy of micturition (Primary Dx); Benign prostatic hyperplasia without lower urinary tract symptoms; Hyperplasia of prostate with lower urinary tract symptoms (LUTS) Social History Tobacco Use Types Packs/Day Years Used Date Smoking Tobacco: Never Smokeless Tobacco: Never Alcohol Use Standard Drinks/Week Comments Never 0 (1 standard drink = 0.6 oz [...] documented as of this encounter Results * US Kidneys (06/03/2020 8:38 AM EST) Anatomical Region Laterality Modality Abdomen, Kidney Ultrasound 06/03/2020 8:43 AM EST Impressions 06/03/2020 8:54 AM EST Chronic small bilateral simple cortical cysts. Otherwise unremarkable renal ultrasound. Bladder not evaluated. POS [id number] Narrative 06/03/2020 8:54 AM EST Compare 04/23/2019 Right kidney 10.3 x 5.0 cm. Left kidney 10.0 x 5.0 cm. No stones or hydronephrosis. Normal cortical echogenicity without focal scarring. 7 mm simple cyst right lower pole unchanged. 4 mm simple cyst right lower pole unchanged. 9 and 7 mm simple cysts left lower pole unchanged. No complex cysts or solid masses on either side. The bladder was essentially empty at the time of the exam could not be meaningfully evaluated. Procedure Note Salas Lee MD - 06/03/2020 Compare 04/23/2019 Right kidney 10.3 x 5.0 cm. Left kidney 10.0 x 5.0 cm. No stones or hydronephrosis. Normal cortical echogenicity without focal scarring. 7 mm simple cyst right lower pole unchanged. 4 mm simple cyst right lower pole unchanged. 9 and 7 mm simple cysts left lower pole unchanged. No complex cysts or solid masses on either side. The bladder was essentially empty at the time of the exam could not bemeaningfully evaluated. IMPRESSION: Chronic small bilateral simple cortical cysts. Otherwise unremarkablerenal ultrasound. Bladder not evaluated. POS [id number] Reymundo Salvador MD [facility] RENAL Final Result documented in this encounter Visit Diagnoses Diagnosis Hesitancy of micturition- Primary Urinary hesitancy Benign prostatic hyperplasia without lower urinary tract symptoms Hyperplasia of prostate with lower urinary tract symptoms (LUTS) Unspecified hyperplasia of prostate with urinary obstruction and other lower urinary tract symptoms (LUTS) Benign prostatic hyperplasia without lower urinary tract symptoms Hyperplasia of prostate with lower urinary tract symptoms (LUTS) Unspecified hyperplasia of prostate with urinary obstruction and other lower urinary tract symptoms (LUTS) Hesitancy of micturition Urinary hesitancy documented in this encounter Care Teams Imaging Tech Relationship Specialty Start Date End Date Arsh Torres MD [address] [facility] [address] [place] [address] [email or web address] PCP - General 03/03/17 documented as of this encounter Additional Source Comments The information contained in this document represents components of the legal health record. It is not the complete legal health record.[facility]
--- OUTSIDE RECORDS SUMMARY | 2025-01-15 09:39 | XMS_ITS | Encounter Summary ---
Author Organization [facility] Address [address] [place] [address] Phone Care Team Providers Care Hydramatic Mechanic Name Role Phone Arsh Torres MD Primary Care Provide r Encounter Details Date Type Department Care Team (Latest Contact Info) Description 04/27/2018 Transcribe Orders [facility] [address] 2[address] [place] [address] Roselia Blanco PA-C [address], [address] [place] [address] [email or web address] Fecal urgency (Primary Dx); Lower abdominal pain Social History Tobacco Use Types Packs/Day Years [...] documented as of this encounter Results * H. pylori antigen, stool (05/12/2018 8:38 AM EST) Pathologist [facility] H.PYLORI AG Negative Negative [facility] DPT OF LAB MED AND PAT+ Stool (Stool) 05/12/2018 8:3 8 AM EST 05/12/2018 9:30 AM EST Roselia Blanco PA-C BODY FLUIDS AND STOOLS ORDERABL ES Final Result [facility] DPT OF LAB MED AND PAT+ [address] [place] [address] * Giardia antigen screen (05/12/2018 8:38 AM EST) ST GIARDIA ANTIGEN Negative Negative [facility] DPT OF LAB MED AND PAT+ Stool (Stool) 05/12/2018 8:3 8 AM EST 05/12/2018 9:30 AM EST us Roselia Blanco PA-C MICROBIOLOGY - GENERAL ORDERABL ES Final Result Performing Organization Address [facility] Co de Phone Number [facility] DPT OF LAB MED AND PAT+ [address] [place] [address] * Fecal leukocyte examination (05/12/2018 8:38 AM EST) Specimen Source/ Description STOOL STOOL [facility] Special Requests None APPLICATIONS [facility] GRAM STAIN NO WBC'S [facility] Report Status 05/13/2018 FINAL [facility] Stool (Stool) 05/12/2018 8:3 8 AM EST 05/12/2018 9:29 AM EST Roselia Blanco PA-C MICROBIOLOGY - GENERAL ORDERABL ES Final Result [facility] [address] [place] [address] * Stool culture (05/12/2018 8:38 AM EST) Specimen Source/ Description STOOL STOOL STOOL [facility] Special Requests None [facility] Culture/Test NO SALMONELLA, SHIGELLA OR CAMPYLOBACTER ISOLATED [facility] Report Status 05/15/2018 FINAL [facility] Stool (Stool) 05/12/2018 8:3 8 AM EST 05/12/2018 9:29 AM EST Roselia Blanco PA-C MICROBIOLOGY - GENERAL ORDERABL ES Final Result Performing Organization Address [facility] Co de Phone Number [address] [address] * Ova and parasites, stool (05/04/2018 7:00 AM EST) Specimen Source/ Description STOOL STOOL [facility] Special Requests None [facility] DIRECT EXAM NO PARASITES FOUND BY DIRECT OR CONCENTRATION METHODS [facility] DIRECT EXAM No parasites found by Trichrome Stain [facility] Report Status 05/15/2018 FINAL [facility] Stool (Stool) 05/04/2018 7:0 0 AM EST 05/12/2018 9:31 AM EST us Roselia Blanco PA-C MICROBIOLOGY - GENERAL MIHAIABL ES Final Result Performing Organization Address [facility] Co de Phone Number [address] [address] * Ova and parasites, stool (05/03/2018 7:00 AM EST) Specimen Source/ Description STOOL PARA JOSE STOOL [facility] Special Requests None [facility] DIRECT EXAM NO PARASITES FOUND BY DIRECT OR CONCENTRATION METHODS [facility] DIRECT EXAM No parasites found by Trichrome Stain [facility] Report Status 05/15/2018 FINAL [facility] Stool (Stool) 05/03/2018 7:0 0 AM EST 05/12/2018 9:31 AM EST Roselia Blanco PA-C MICROBIOLOGY - GENERAL ORDERABL ES Final Result Performing Organization Address City/[facility] Co de Phone Number [address] [address] * Ova and parasites, stool (05/02/2018 7:00 AM EST) Specimen Source/ Description STOOL PARA JOSE STOOL [facility] Special Requests None [facility] DIRECT EXAM NO PARASITES FOUND BY DIRECT OR CONCENTRATION METHODS [facility] DIRECT EXAM No parasites found by Trichrome Stain [facility] Report Status 05/15/2018 FINAL [facility] Stool (Stool) 05/02/2018 7:0 0 AM EST 05/12/2018 9:32 AM EST Roselia Blanco PA-C MICROBIOLOGY - GENERAL ORDERABL ES Final Result Performing Organization Address [facility] Co de Phone Number [address] [address] * TSH (04/27/2018 9:56 AM EST) TSH 1.65 0.27 - 4.20 uIU/mL [facility] Blood 04/27/2018 9:56 AM EST 04/27/2018 10:03 AM EST us Roselia Blanco PA-C LAB BLOOD ORDERABLES Final Resu lt Performing Organization Address [facility] Co de Phone Number [address] [address] * C-Reactive Protein (04/27/2018 9:56 AM EST) C REACTIVE PROTEIN 0.7 0.0 - 4.0 mg/L [facility] Blood 04/27/2018 9:56 AM EST 04/27/2018 10:03 AM EST us Roselia Blanco PA-C LAB BLOOD ORDERABLES Final Resu lt Performing Organization Address [facility] Co de Phone Number [address] [address] * (ABNORMAL) Comprehensive metabolic panel (04/27/2018 9:56 AM EST) SODIUM 139 133 - 146 mmol/L [facility] POTASSIUM 4.2 3.3 - 5.1 mmol/L [facility] CHLORIDE 102 96 - 108 mmol/L [facility] CO2 24 21 - 35 mmol/L [facility] BUN 24(H) 6 - 19 mg/dL [facility] CREATININE 1.10 0.5 - 1.5 mg/dL [facility] GLUCOSE 112(H) 70 - 99 mg/dL [facility] ALBUMIN 4.3 3.9 - 4.8 g/dL [facility] TOTAL PROTEIN 7.2 6.5 - 8.0 g/dL [facility] CALCIUM 9.7 8.4 - 10.3 mg/dL [facility] ALKALINE PHOSPHATASE 85 39 - 117 U/L [facility] TOTAL BILIRUBIN 0.5 0.0 - 1.2 mg/dL [facility] AST 23 0 - 37 U/L [facility] ALT 20 0 - 40 U/L [facility] GLOBULIN 2.9 1 - 4.8 g/dL [facility] EGFR 74 >59 mL/min/1.7 3m2 [facility] Comment:If patient is black, multiply result by 1.159. Estimated glomerular filtration rate calculated using the CKD-EPI equation. ANION GAP 17 10 - 20 mmol/L [facility] Blood 04/27/2018 9:56 AM EST 04/27/2018 10:03 AM EST us Roselia Blanco PA-C LAB BLOOD ORDERABLES Final Resu lt Performing Organization Address City/State/[facility] Co de Phone Number [facility] [address] [place] [address] * (ABNORMAL) CBC (04/27/2018 9:56 AM EST) WBC 6.09 3.40 - 11.20 K/uL [facility] RBC 5.72(H) 4.50 - 5.50 M/uL [facility] HGB 16.5 13.0 - 17.0 g/dL [facility] HCT 48.1 40.0 - 51.0 % [facility] PLT 214 130 - 400 K/uL [facility] MCV 84.1 79.0 - 98.0 fL [facility] MCH 28.8 27.0 - 34.8 pg [facility] MCHC 34.3 31.5 - 36.0 g/dL [facility] RDW 13.2 10.8 - 14.6 % [facility] MPV 10.6 9.4 - 12.4 fl [facility] NRBC 0.00 0.00 /100 WBCs [facility] ABSOLUTE NRBC 0.00 0.00 K/uL [facility] Blood 04/27/2018 9:56 AM EST 04/27/2018 10:03 AM EST Roselia Blanco PA-C LAB BLOOD ORDERABLES Final Resu lt Performing Organization Address City/[facility]/ZIP Co de Phone Number [address] [address] * Immunoglobulin A (04/27/2018 9:56 AM EST) IgA 361 70 - 400 mg/dL [facility] Blood 04/27/2018 9:56 AM EST 04/27/2018 10:03 AM EST us Roselia Blanco PA-C LAB BLOOD ORDERABLES Final Resu lt Performing Organization Address [facility]/ZIP Co de Phone Number [address] [address] * Tissue transglutaminase IgA (04/27/2018 9:56 AM EST) TTG IGA ANTIBODY <1.2 <4.0 (Negative) U/mL [facility] DPT OF LAB MED AND PAT+ Blood 04/27/2018 9:56 AM EST 04/27/2018 10:03 AM EST Roselia Blanco PA-C LAB BLOOD ORDERABLES Final Resu lt [facility] DPT OF LAB MED AND PAT+ [address] [place] [address] documented in this encounter Visit Diagnoses Diagnosis Fecal urgency- Primary Lower abdominal pain Abdominal pain, other specified site documented in this encounter Care Teams Hydramatic Mechanic Relationship Specialty Start Date End Date Arsh Torres MD [address] [place] [address] [place] [address] PCP - General 03/03/17 documented as of this encounter Additional Source Comments The information contained in this document represents components of the legal health record. It is not the complete legal health record.[facility]
--- OUTSIDE RECORDS SUMMARY | 2025-01-15 09:39 | XMS_ITS | Encounter Summary ---
Author Organization [facility] Address [address] [place] [address] Phone Care Team Providers Care Shovel Handle Assembler Name Role Phone Arsh Torres MD Primary Care Provide r Encounter Details Date Type Department Care Team (Late st Contact Info) Description 03/17/2023 Transcribe Orders [facility] Specimen Processing [address] [place] [address] Arsh Torres MD [address] [facility] [address] [place] [address] [email or web address] Social History Tobacco Use Types Packs/Day Years Used Date Smoking Tobacco: Never Smokeless Tobacco: Never Alcohol Use Standard Drinks/Week Comments Never 0 (1 standard drink = 0.6 oz pur e alcohol) Home Health Assessment: Transportation Answer Date Recorded Lack of Transportation (Medical) No 10/21/2022 Lack of Transportation (Non-Medical) No 10/21/2022 Patient Unable or Declines to Respond No 10/21/2022 Education Answer Date Recorded Are you interested in more education? Not on rodriguez e 09/09/2022 Are you concerned about learning? Not on file 09/09/2022 No 09/09/2022 No 09/09/2022 Digital Access Answer Date Recorded No 10/05/2022 No 10/05/2022 Reliable internet access at home? Not on file 10/05/2022 Device with a working camera? Not on file Sex and Gender Information Value Date Recorded Sex Assigned at Male 12/23/2018 10:25 AM EDT Legal Sex Male 9:48 PM EDT Gender Identity Male 12/23/2018 10:25 AM EDT Sexual Orientation Straight 12/23/2018 10 :25 AM EDT documented as of this encounter Plan of Treatment Not on file documented as of this encounter Visit Diagnoses Not on filedocumented in this encounter Care Teams Shovel Handle Assembler Relationship Specialty Start Date End Date Arsh Torres MD 230 [facility] [address] [place] [address] PCP - General 03/03/17 documented as of this encounter Additional Source Comments The information contained in this document represents components of the legal health record. It is not the complete legal health record.[facility]
--- OUTSIDE RECORDS SUMMARY | 2025-01-15 09:39 | XMS_ITS | Encounter Summary ---
Author Organization [facility] Address [address] [place] [address] Phone Care Team Providers Care Personal Protection Specialist Name Role Phone Arsh Torres MD Primary Care Provide r Reason for Referral * MRI/CAT Scan - Closed Specialty Diagnoses / Procedures Referred By Contac t Referred To Contact Procedures CT Abdomen/Pelvis Outside (No Interpretation) System, Provider Not In, [facility] [address] [address] Referral ID Status Reason Start Date Expiration Date Visits Re quested Visits Authorized [id number] Closed 09/18/2018 09/18/2019 1 1 Encounter Details Date Type Department Care Team (Late st Contact Info) Description 09/18/2018 Ancillary Orders [facility],Outside Imaging [address] [place] [address] System, Provider Not In, [facility] [address] [address] Social History Tobacco Use Types Packs/Day Years [...] Results * CT Abdomen/Pelvis Outside (No Interpretation) (08/05/2018 12:00 AM EDT) Narrative SYSTEMGENERATED, DOCUMENTATION - 09/18/2018 1:00 PM EDT This study is for PACS storage only and not for interpretation. us Provider Not In System [facility] OUTSIDE IMAGING W /OUT INTERPRETATION Final Result documented in this encounter Visit Diagnoses Not on filedocumented in this encounter Care Teams Personal Protection Specialist Relationship Specialty Start Date End Date Arsh Torres MD [address] [place] [address] [address] [place] [address] [email or web address] PCP - General 03/03/17 documented as of this encounter Additional Source Comments The information contained in this document represents components of the legal health record. It is not the complete legal health record.[facility]
--- OUTSIDE RECORDS SUMMARY | 2025-01-15 09:39 | XMS_ITS | Encounter Summary ---
Author Organization [facility] Address [address] [place] [address] Phone Care Team Providers Care Automatic Lathe Operator Name Role Phone Arsh Torres MD Primary Care Provide r Encounter Details Date Type Department Care Team (Late st Contact Info) Description 02/23/2019 Ancillary Orders [facility], X-Ray - [address] [place] [address] Arsh Torres MD [address] [place] [address] [address] [place] [address] [email or web address] Left knee pain, unspecified chronicity; Right knee pain, unspecified chronicity Social History Tobacco Use Types Packs/Day Years [...] as of this encounter Visit Diagnoses Diagnosis Left knee pain, unspecified chronicity Right knee pain, unspecified chronicity documented in this encounter Care Teams Automatic Lathe Operator Relationship Specialty Start Date End Date Arsh Torres MD 230 [facility] [address] [place] [address] [email or web address] PCP - General 03/03/17 documented as of this encounter Additional Source Comments The information contained in this document represents components of the legal health record. It is not the complete legal health record.[facility]
--- OUTSIDE RECORDS SUMMARY | 2025-01-15 09:39 | XMS_ITS | Encounter Summary ---
Author Organization [facility] Address [address] [place] [address] Phone Care Team Providers Care Director Global Intelligence Name Role Phone Arsh Torres MD Primary Care Provide r Encounter Details Date Type Department Care Team (Latest Contact Info) Description 08/31/2018 Transcribe Orders [facility] Laboratory [address] 2nd [place] [address] Ky De La Fuente NP [address] [place] [address] [email or web address] Change in bowel habits (Primary Dx) Social History Tobacco Use Types Packs/Day Years [...] documented as of this encounter Results * IgG subclasses (08/31/2018 9:24 AM EDT) IGG 1 716 341 - 894 mg/dL [facility] IGG 2 387 171 - 632 mg/dl [facility]PATH [address] DR IGG 3 39.6 18.4 - 106.0 mg/dl [facility] MED/PATH [address] DR IGG 4 13.5 2.4 - 121.0 mg/dl [facility] TOTAL IGG 1,160 767 - 1,590 mg/dl [facility] Blood 08/31/2018 9:24 AM EDT 08/31/2018 9:29 AM EDT us Ky De La Fuente NP LAB BLOOD ORDERABLES Final Re sult [facility] MED/[facility] [address] [place] [address] documented in this encounter Visit Diagnoses Diagnosis Change in bowel habits- Primary Other symptoms involving digestive system documented in this encounter Care Teams Director Global Intelligence Relationship Specialty Start Date End Date Arsh Torres MD [address] [place] [address] [address] [place] [phone] [email or web address] PCP - General 03/03/17 documented as of this encounter Additional Source Comments The information contained in this document represents components of the legal health record. It is not the complete legal health record.[facility]
--- OUTSIDE RECORDS SUMMARY | 2025-01-15 09:39 | XMS_ITS | Encounter Summary ---
Author Organization [employer] Address [address] [place] [address] Care Team Providers Care Ict Business Analyst Name Role Phone Arsh Gamez MD Primary Care Provide r Reason for Visit * Reason Comments Med Refill Encounter Details Date Type Department Care Team ([facility] st Contact Info) Description 07/07/2024 Refill [facility] [address] [place], [place] [phone] Arsh Gamez MD [address] [place], [place] [phone] Benign prostatic hyperplasia with urinary frequency Social [...] Description 06/13/2025 8:00 AM EST Office Visit [facility] [address] [place] [address] Mari Bloom documented as of this encounter Visit Diagnoses Diagnosis Benign prostatic hyperplasia with urinary frequency documented in this encounter Additional Health Concerns Assessment Noted Time PHQ-9 Depression Total Score: 0 09/29/19 24 9:32 AM EDT documented as of this encounter Care Teams Ict Business Analyst Relationship Specialty Start Date End Date Arsh Gamez MD [address] [place] [address] PCP - General Internal Medicine 12/18/13 documented as of this encounter
--- OUTSIDE RECORDS SUMMARY | 2025-01-15 09:39 | XMS_ITS | Encounter Summary ---
Author Organization [facility] Address [address] [place] [address] Phone Care Team Providers Care Cafe Server Name Role Phone Arsh Torres MD Primary Care Provide r Encounter Details Date Type Department Care Team (Late st Contact Info) Description 09/13/2023 Procedure Pass OR Admitting Dept - Virtual Department [address] [place] [address] Social History Tobacco Use Types Packs/Day Years Used Date Smoking Tobacco: Never Smokeless Tobacco: Never Alcohol Use Standard Drinks/Week Comments Not Currently 0 (1 standard drink = 0.6 oz pur e alcohol) quit drinking ~ 40 years ago Home Health Assessment: Transportation Answer Date Recorded [...] on filedocumented in this encounter Care Teams Cafe Server Relationship Specialty Start Date End Date Arsh Torres MD 230 [facility] [address] [place] [phone] PCP - General 03/03/17 documented as of this encounter Additional Source Comments The information contained in this document represents components of the legal health record. It is not the complete legal health record.[facility]
--- OUTSIDE RECORDS SUMMARY | 2025-01-15 09:39 | XMS_ITS | Encounter Summary ---
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 Referral ID Status Reason Start Date Expiration Date Visits Re quested Visits Authorized [id number] Closed 09/04/2018 09/04/2019 1 1 Encounter Details Date Type Department Care Team (Latest Contact Info) Description 09/04/2018 Transcribe Orders Virtual Department [address] [place] [address] Ky De La Fuente NP [address] [place] [address] 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 Pancreas divisum but no evidence of active pancreatitis. 2. Small cystic lesion in the pancreatic tail likely benign though not apparent on CT in 2011. Consider follow-up MRI in one year. 3. Benign-appearing renal cysts. 4. No hepatic, gallbladder or biliary pathology. POS [id number] Narrative 09/14/2018 10:18 AM EDT TECHNIQUE: 1.5 Raiza high-field MRI scanner. The following sequences were obtained after the oral administration of 40 mL water: 1mL Dotarem (brand of gadoterate meglumine) in solution: Axial T1 in and out of phase and T2, coronal T2, radial thick slab MRCP, coronal oblique thin section 3-D MRCP. Reformatted axial and cholangiographic MIP images are available for review. 3-D rendering of the bile ducts is obtained with image post processing under concurrent supervision not on an independent workstation. The 3-D MIPS images are of poor quality due to motion artifact. Compare to typed report of CT 08/05/2018 from [facility] as well as [facility] ultrasound from 04/25/[address] 07/23/2011. FINDINGS: No evidence of active pancreatitis or solid pancreatic mass. Pancreas divisum is present with the main duct emptying to an accessory ampulla the distal second portion of the duodenum and the CBD joining the accessory duct at the typical ampullary location. The pancreatic duct is otherwise normal in appearance without any dilatation, irregularity or filling defects. There is a 8mm unilocular cyst in the tail of the pancreas which does not obviously communicate with the duct. No other cystic or solid pancreatic lesions are apparent. No gallstones, gallbladder wall thickening or pericholecystic fluid. No biliary dilatation or filling defects. No irregularity of the biliary ducts. Liver, spleen, adrenals unremarkable. Multiple renal cortical cysts bilaterally. No solid renal masses or hydronephrosis. No ascites, adenopathy or pleural effusion. Procedure Note Salas Lee MD - 09/14/2018 TECHNIQUE: 1.5 Raiza high-field MRI scanner. The following sequences wereobtained after the oral administration of 40 mL water: 1mL Dotarem (brandof gadoterate meglumine) in solution: Axial T1 in and out of phase andT2, coronal T2, radial thick slab MRCP, coronal oblique thin section 3-DMRCP. Reformatted axial and cholangiographic MIP images are available forreview. 3-D rendering of the bile ducts is obtained with image postprocessing under concurrent supervision not on an independent workstation.The 3-D MIPS images are of poor quality due to motion artifact. Compare to typed report of CT 08/05/2018 from [facility] aswell as [facility] ultrasound from 04/25/[address] 07/23/2011. FINDINGS: No evidence of active pancreatitis or solid pancreatic mass. Pancreas divisum is present with the main duct emptying to an accessoryampulla the distal second portion of the duodenum and the CBD joining theaccessory duct at the typical ampullary location. The pancreatic duct isotherwise normal in appearance without any dilatation, irregularity orfilling defects. There is a 8mm unilocular cyst in the tail of the pancreas which does notobviously communicate with the duct. No other cystic or solid pancreaticlesions are apparent. No gallstones, gallbladder wall thickening or pericholecystic fluid. No biliary dilatation or filling defects. No irregularity of the biliaryducts. Liver, spleen, adrenals unremarkable. Multiple renal cortical cysts bilaterally. No solid renal masses orhydronephrosis. No ascites, adenopathy or pleural effusion. IMPRESSION: 1. Pancreas divisum but no evidence of active pancreatitis. 2. Small cystic lesion in the pancreatic tail likely benign though notapparent on CT in 2011. Consider follow-up MRI in one year. 3. Benign-appearing renal cysts. 4. No hepatic, gallbladder or biliary pathology. 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 It is not the complete legal health record.[facility]
--- OUTSIDE RECORDS SUMMARY | 2025-01-15 09:39 | XMS_ITS | Encounter Summary ---
Author Organization [facility] Address [address] [place] [phone] Phone Care Team Providers Care Circuit Board Drafter Name Role Phone Arsh Torres MD Primary Care Provide r Encounter Details Date Type Department Care Team (Late st Contact Info) Description 09/18/2018 Ancillary Orders [facility],Outside Imaging [address] [place] [address] System, Provider Not In, PhD [address] [address] Social History Tobacco Use Types Packs/Day Years [...] as of this encounter Results * US Abdomen Outside (No Interpretation) (06/02/2016 12:00 AM EST) Narrative SYSTEMGENERATED, DOCUMENTATION - 09/18/2018 1:01 PM EDT This study is for PACS storage only and not for interpretation. us Provider Not In System PhD IMG OUTSIDE IMAGING W /OUT INTERPRETATION Final Result documented in this encounter Visit Diagnoses Not on filedocumented in this encounter Care Teams Circuit Board Drafter Relationship Specialty Start Date End Date Arsh Torres MD [address] [facility] [address] [place] [address] [email or web address] PCP - General 03/03/17 documented as of this encounter Additional Source Comments The information contained in this document represents components of the legal health record. It is not the complete legal health record.[facility]
--- OUTSIDE RECORDS SUMMARY | 2025-01-15 09:39 | XMS_ITS | Encounter Summary ---
Author Organization [facility] Address [address] [place] [phone] Phone Care Team Providers Care Sales Assistants And Salespersons Name Role Phone Arsh Torres MD Primary Care Provide r Encounter Details Date Type Department Care Team (Late st Contact Info) Description 03/01/2023 Procedure Pass [facility], [address] [place] [address] Social History Tobacco Use Types Packs/Day Years [...] on filedocumented in this encounter Care Teams Sales Assistants And Salespersons Relationship Specialty Start Date End Date Arsh Torres MD [address] [place] [address] [address] [place] [phone] PCP - General 03/03/17 documented as of this encounter Additional Source Comments The information contained in this document represents components of the legal health record. It is not the complete legal health record.[facility]
--- OUTSIDE RECORDS SUMMARY | 2025-01-15 09:39 | XMS_ITS | Encounter Summary ---
Author Organization [facility] Address [address] [place] [address] Phone Care Team Providers Care Industrial Paramedic Name Role Phone Arsh Torres MD Primary Care Provide r Encounter Details Date Type Department Care Team (Late st Contact Info) Description 08/17/2023 Transcribe Orders Virtual Department [address] [place] [address] Sarah Mojica PA-C [address] [place] [address] [email or web address] Cyst of kidney, acquired (Primary Dx); Calculus of kidney Social History Tobacco Use Types Packs/Day Years [...] of this encounter Results * US Kidneys (09/05/2023 2:42 PM EDT) Anatomical Region Laterality Modality Abdomen, Kidney Ultrasound 09/06/2023 8:36 PM EDT Impressions 09/07/2023 6:04 AM EDT No hydronephrosis or shadowing nephrolithiasis. Simple appearing subcentimeter bilateral renal cysts. Prostatomegaly. Narrative 09/07/2023 6:04 AM EDT US KIDNEYS Referring clinician's provided indication for this examination in [facility]: Outside Radiology Order; CYST OF KIDNEY, CALCULUS OF KIDNEY TECHNIQUE: Kidney Ultrasound. COMPARISON: US KIDNEYS FINDINGS: Right Kidney: Size: 10.0 cm Simple appearing subcentimeter cortical cysts. No shadowing stones or hydronephrosis. Left Kidney: Size: 9.1 cm Simple appearing subcentimeter cortical cysts. No shadowing stones or hydronephrosis. Bladder: No focal wall thickening. Enlarged prostate measuring 6.0 x 5.8 x 5.0 cm exerting mass effect on the bladder base. Procedure Note Manuel Montoya MD - 09/07/2023 US KIDNEYS Referring clinician's provided indication for this examination in [facility]:Outside Radiology Order; CYST OF KIDNEY, CALCULUS OF KIDNEY TECHNIQUE: Kidney Ultrasound. COMPARISON: US KIDNEYS FINDINGS: Right Kidney: Size: 10.0 cm Simple appearing subcentimeter cortical cysts. No shadowing stones orhydronephrosis. Left Kidney: Size: 9.1 cm Simple appearing subcentimeter cortical cysts. No shadowing stones orhydronephrosis. Bladder: No focal wall thickening. Enlarged prostate measuring 6.0 x 5.8 x 5.0 cm exerting mass effect on thebladder base. IMPRESSION: No hydronephrosis or shadowing nephrolithiasis. Simple appearing subcentimeter bilateral renal cysts. Prostatomegaly. Sarah Mojica PA-C IMG US RENAL Final R esult documented in this encounter Visit Diagnoses Diagnosis Cyst of kidney, acquired- Primary Acquired cyst of kidney Calculus of kidney Cyst of kidney, acquired Acquired cyst of kidney Calculus of kidney documented in this encounter Care Teams Industrial Paramedic Relationship Specialty Start Date End Date Arsh Torres MD [address] [place] [address] [address] [place] [phone] [email or web address] PCP - General 03/03/17 documented as of this encounter Additional Source Comments The information contained in this document represents components of the legal health record. It is not the complete legal health record.[facility]
--- OUTSIDE RECORDS SUMMARY | 2025-01-15 09:39 | XMS_ITS | Encounter Summary ---
Author Organization [facility] Address [address] [place] [phone] Phone Care Team Providers Care Mailroom Courier Name Role Phone Arsh Torres MD Primary Care Provide r Reason for Referral * MRI/CAT Scan - Closed Specialty Diagnoses / Procedures Referred By Contac t Referred To Contact Procedures CT Abdomen/Pelvis Outside (No Interpretation) System, Provider Not In, PhD Partners [address] [address] Referral ID Status Reason Start Date Expiration Date Visits Re quested Visits Authorized [id number] Closed 09/18/2018 09/18/2019 1 1 Encounter Details Date Type Department Care Team (Late st Contact Info) Description 09/18/2018 Ancillary Orders [facility],Outside Imaging [address] [place] [address] System, Provider Not In, PhD [facility] [address] [address] Social History Tobacco Use Types Packs/Day Years [...] on filedocumented in this encounter Care Teams Mailroom Courier Relationship Specialty Start Date End Date Arsh Torres MD [address] [place] [address] [address] [place] [address] [email or web address] PCP - General 03/03/17 documented as of this encounter Additional Source Comments The information contained in this document represents components of the legal health record. It is not the complete legal health record.[facility]
--- OUTSIDE RECORDS SUMMARY | 2025-01-15 09:39 | XMS_ITS | Encounter Summary ---
Author Organization [facility] Address [address] [place] [phone] Phone Care Team Providers Care Pbx Wire Chief Name Role Phone Arsh Torres MD Primary Care Provide r Encounter Details Date Type Department Care Team (Latest Contact Info) Description 04/28/2018 Transcribe Orders [facility] [address] [place] [address] Dr Lee BETTY [phone] Reymundo Salvador MD [address] [place] [address], [address] [place] [address] [email or web address] Benign prostatic hyperplasia with lower urinary tract symptoms, symptom details unspecified (Primary Dx) Social History Tobacco Use Types [...] documented as of this encounter Results * PSA (screening) (04/28/2018 12:40 PM EST) PSA 1.27 0 - 4.00 ng/mL [facility] Blood 04/28/2018 12:4 0 PM EST 04/28/2018 12:42 PM EST us Reymundo Salvador MD LAB BLOOD ORDERABLES Final Res ult [facility] [address] [place] [address] documented in this encounter Visit Diagnoses Diagnosis Benign prostatic hyperplasia with lower urinary tract symptoms, symptom details unspecified- Primary documented in this encounter Care Teams Pbx Wire Chief Relationship Specialty Start Date End Date Arsh Torres MD [address] [place] [address] [address] [place] [address] [email or web address] PCP - General 03/03/17 documented as of this encounter Additional Source Comments The information contained in this document represents components of the legal health record. It is not the complete legal health record.[facility]
--- OUTSIDE RECORDS SUMMARY | 2025-01-15 09:39 | XMS_ITS | Encounter Summary ---
Author Organization [employer] Address [address] [facility] [address] [place] [address] Care Team Providers Care Retail Client Solutions Analyst Name Role Phone Arsh Gamez MD Primary Care Provide r Reason for Visit * Reason Onset Date Comments Results 03/27/2024 Encounter Details Date Type Department Care Team ([facility] Contact Info) Description 03/27/2024 Telephone [facility] [address] [place], [place] [phone] Arsh Gamez MD [address] [place], [place] [phone] Results Social History Tobacco Use Types Packs/Day [...] Description 06/13/2025 8:00 AM EST Office Visit [facility] ADULT DENTAL [address] [place] [address] Mari Bloom documented as of this encounter Visit Diagnoses Not on filedocumented in this encounter Additional Health Concerns Assessment Noted Time PHQ-9 Depression Total Score: 0 09/29/19 9:32 AM EDT documented as of this encounter Care Teams Retail Client Solutions Analyst Relationship Specialty Start Date End Date Arsh Gamez MD [address] [place] [address] PCP - General Internal Medicine 12/18/13 documented as of this encounter
--- OUTSIDE RECORDS SUMMARY | 2025-01-15 09:39 | XMS_ITS | Encounter Summary ---
Author Organization [facility] Address [address] [place] [address] Phone Care Team Providers Care Noodle Catalyst Maker Name Role Phone Arsh Torres MD Primary Care Provide r Encounter Details Date Type Department Care Team (Late st Contact Info) Description 09/04/2018 Procedure Pass [facility], [address] [place] [address] Social History Tobacco Use Types Packs/Day Years [...] on filedocumented in this encounter Care Teams Noodle Catalyst Maker Relationship Specialty Start Date End Date Arsh Torres MD [address] [facility] [address] [place] [address] PCP - General 03/03/17 documented as of this encounter Additional Source Comments The information contained in this document represents components of the legal health record. It is not the complete legal health record.[facility]
--- OUTSIDE RECORDS SUMMARY | 2025-01-15 09:39 | XMS_ITS | Clinical Summary ---
Author Organization Located Within [facility] Address [address] [place] [address] Phone Care Team Providers Care Fire Sprinkler Installer Name Role Phone Arsh Torres MD Primary Care Provide r Allergies Active Allergy Reactions Criticality Noted Date Comments Peanut Anaphylaxis High 06/08/2013 Medications lisinopril (PRINIVIL,ZESTR IL) 40 MG tablet Take 40 mg by mouth daily. Active fluticasone propionate (FLONASE) 50 mcg/actuation nasal spray 1-2 sprays. 3 Active meloxicam (MOBIC) 15 MG tablet 3 Active metFORMIN (GLUCOPHAGE-XR) 500 MG 24 hr tablet Take 500 mg by mouth daily with breakfast. 3 Active metoprolol succinate (TOPROL-XL) 25 MG 24 hr tablet TOME MARCELINA TABLETA TODOS LOS D 3 Active omeprazole (PRILOSEC) 20 MG capsule TOME MARCELINA C PSULA DOS VECES AL D A BEFORE A MEAL 3 Active tamsulosin (FLOMAX) 0.4 mg Cap 3 Active acetaminophen (TYLENOL) 500 MG tablet Take 500 mg by mouth every 6 (six) hours as needed. 4 Active amoxicillin (AMOXIL) 500 MG capsule Take 500 mg by mouth. 4 Active hydrALAZINE (APRESOLINE) 50 MG tablet Take 50 mg by mouth 2 (two) times a day. 4 Active amLODIPine (NORVASC) 5 MG tablet 4 Active chlorhexidine (PERIDEX) 0.12 % solution Swish 15 mL morning and night for 1 minute. Spit, do not swallow. Do not eat or drink for 30 minutes following use. 4 Active finasteride (PROSCAR) 5 mg tablet TAKE 1 TABLET (5 MG) BY MOUTH ONCE PER DAY. Active Active Problems Problem Noted Date Diagnosed Date Mild hypertrophic obstructive cardiomyopathy Assessment & Plan (08/04/2023 3:00 PM EDT): Followed by Dr.Nitin Campbell for h/o palpitations and chest pain, HTN, heart murmur. Patient was seen on 08/03/23 for preoperative cardiac clearance. He denies any chest pain/pressure, no dyspnea on exertion or shortness of breath, no PND or orthopnea, no heart palpitations, no dizziness or lightheadedness, no syncope or fainting, and no LE edema. He overall feels well and is working out 3-4 times a week in the gym lifting weights, climbs stairs, can walk 2 blocks without stopping. He underwent an evaluation with cardiac MRI due to concern for amyloidosis, but in fact he does not have amyloidosis. Suspect if anything he has very mild hypertrophic cardiomyopathy. Planned to repeat an echocardiogram in 6 months to monitor for hypertrophy. Primary osteoarthritis of both knees 08/03/2023 Preop examination 08/03/2023 Assessment & Plan (08/04/2023 3:08 PM EDT): 63 [address] old patient of Dr. Torres with planned left partial knee replacement on 09/13/23. Procedure risk is intermediate. Patient denies symptoms associated with acute coronary syndromes including unstable or severe angina, CT within 1 month, severe CHF, high grade arrhythmia or symptomatic valvular disease. Medical risk assessment at the surgical optimization clinic are as follows. POLK cardiovascular risk score is 0.2 % risk of myocardial infarction or cardiac arrest, intraoperatively or up to 30 day post-operatively. If <1%, no further cardiac work-up recommended. STOP BANG score shows 4 points indicating an intermediate risk of sleep apnea. DASI score was 36.7 points, able to achieve at least 7.25 METS. If DASI >18, no further cardiac testing recommended. RCRI score was 0.4 % risk for cardiovascular event including myocardial infarction, pulmonary edema, arrhythmia, cardiac arrest or complete heart block. This reflects very low risk on the scale. Patient's risk for major adverse cardiac events is low. This meets ACC/AHA guidelines for proceeding to non-cardiac surgery without additional testing. The patient remains very active, climbs stairs, works out lifting heavy weights in the gym 3-4 times a week, without any exertional or anginal symptoms. The patient was seen by Dr. Sonu Campbell for preoperative cardiac clearance on 08/03/23. EKG done in cardiology office on 08/03/23, reviewed by , showed normal sinus rhythm. 66 bpm, QTC 394 ms. LVH. He is a mild to moderate risk for knee surgery. Avoid fluid overload, keep potassium and magnesium levels within normal limits and obtain a postop EKG. Blood work from 08/02/23 shows a hemoglobin A1c of 6.5%. CBC and BMP are unremarkable with a creatinine of 1.10 and eGFR 75. The patient can proceed to the intended procedure without further work-up. He should have standard DVT and antibiotic prophylaxis. The patient was instructed to discontinue use of any NSAIDs, fish oil, turmeric, herbal supplements and multivitamins for 10 days before surgery as these could increase the risk of bleeding complications. The patient does not have any medical conditions which would preclude a same day discharge after joint replacement surgery. Primary localized osteoarthrosis of left lower l eg 01/31/2023 Seasonal allergies 06/17/2022 Overview (08/03/2023): Last Assessment & Plan: Cetirizine and flonase Rx Benign prostatic hyperplasia with urinary freque ncy 06/16/2022 Overview (08/03/2023): Last Assessment & Plan: Follows with urology Under the care of Dr. Fofana (Urology). Recommended to continue Flomax and f/u with him Polycythemia 06/16/2022 Overview (08/03/2023): Last Assessment & Plan: Pt with persistent erthrocytosis on and off. Pt was referred to hematology for further work up.So far work up unremarkable He has been seen by last on 02/10/2017 BPH (benign prostatic hyperplasia) 12/18/2021 Assessment & Plan (08/04/2023 3:03 PM EDT): Follows with urology/, BPH with urinary frequency. Continue on medical management with tamsulosin 0.4 mg PO daily perioperatively. Chronic lower back pain 12/18/2021 Hypertensive disorder 12/18/2021 Assessment & Plan (08/04/2023 2:24 PM EDT): BP well-controlled 134/89. On medical management with metoprolol 25 mg PO daily, lisinopril 40 mg PO daily, and hydralazine 50 mg PO BID. Denies taking amlodipine anymore and did not tolerated higher dose of the hydralazine due to symptom of dizziness. Instructed to continue on metoprolol and hydralazine perioperatively, but to not take lisinopril on the morning of surgery. Depression 12/18/2021 CKD (chronic kidney disease) stage 2, GFR 60-89 ml/min 12/18/2021 Assessment & Plan (08/04/2023 3:03 PM EDT): Followed by nephrology with history of renal cysts and hypertensive kidney disease. Renal ultrasound in 2022 showed bilateral renal cysts with no stones. Current Cr 1.10, eGFR 75. Recommend to avoid NSAID's and nephrotoxic medications, maintain adequate hydration, renally dose morphine. Multiple renal cysts 03/04/2021 Unspecified hypertensive kid viv disease with chronic kidney disease stage I through stage IV, or unspecified 01/23/2021 Proteinuria 01/23/2021 Assessment & Plan (08/04/2023 2:40 PM EDT): Patient follows with nephrology at the [facility] in [place] for CKD stage 2, nephrolithiasis, renal cysts, hypertensive kidney disease and proteinuria. Gastroesophageal reflux disease without esophagi tis 06/03/2019 Assessment & Plan (08/04/2023 2:28 PM EDT): Continue on medical management with omeprazole 20 mg PO daily perioperatively. Assessment & Plan (06/03/2019 7:50 PM EST): Avoid late, large, spicy meals. Keep headboard elevated at 45 angle for nighttime. Arthritis of knee, left 05/18/2019 Assessment & Plan (08/03/2023 9:42 AM EDT): Planned for left partial knee replacement on 09/13/23 by . Assessment & Plan (06/03/2019 7:49 PM EST): Joint protection, energy conservation. Gentle, regular exercise routine. Avoid falls, injuries, overuse. Keep body weight in ideal range for his height. He may benefit from topical cream such as Arnica, Biofreeze, Aspercreme versus medicated patches such as salonpas, icy hot patch 2-3 times daily and if necessary at bedtime x 3 weeks. Consider local steroid injection if not better or worse. Type 2 diabetes mellitus without complication Overview (08/03/2023): Last Assessment & Plan: Televisit in regards to his DM He [...] on a daily basis Assessment & Plan (08/04/2023 3:21 PM EDT): DM type 2, diagnosed ~ 3 years ago. Well-controlled. HbA1c 6.5%. On medical management with metformin 500 mg PO daily and limiting sugar/carbohydrates in diet. Instructed to hold the metformin on the day of surgery. Hypertriglyceridemia 07/15/2011 Assessment & Plan (08/04/2023 2:26 PM EDT): Triglycerides elevated at 399 on lab work from May 2023. Patient is working on dietary changes, defer to PCP for monitoring/management. Resolved Problems Problem Noted Date Diagnosed Date Resolved Date Complete tear of left rotator cuff 08/03/2023 08/03/2023 Right knee pain 08/03/2023 08/03/2023 Status post right partial knee replacement 11/04/2022 08/04/2023 Tinea 10/19/2022 08/03/2023 Overview (08/03/2023): Last Assessment & Plan: Pt with c/o this on and off on his feet, in the past did well with Lotrisone, he is requesting a refill Will send Chronic periodontitis, generalized, slight 08/05/2022 08/04/2023 Dental calculus 08/05/2022 08/03/2023 Localized gingival recession, minimal 08/05/2022 08/03/2023 Primary osteoarthritis of right knee 12/18/2021 08/04/2023 SHIRLENE positive 12/18/2021 08/04/2023 Paroxysmal tachycardia 12/18/202108/03 Nephrolithiasis 03/04/2021 08/04/2023 Diabetes mellitus 01/23/2021 08/03/2023 Arthritis of knee, right 05/18/2019 Assessment & Plan (05/18/2019 2:27 PM EST): Procedure: After an informed oral consent, under sterile conditions using Ethyl chloride spray for local anesthesia I have injected 40 mg DepoMedrol and 3 cc 1% Lidocaine into Right knee from infero-medial approach uneventfully. Details of post-procedure care were explained to the patient in the office and given in writing. Medial epicondylitis of right elbow 05/18/2019 08/03/2023 Assessment & Plan (05/18/2019 2:30 PM EST): Joint protection, energy conservation. Avoid repetitive pulling, pushing, heavy lifting izaiah with outstretched forearms. Examples of gentle exercises printed Topical cream vs patch Tubular adenoma of colon 07/08/2016 Overview (08/03/2023): Last Assessment & Plan: Tubular Adenoma 04/2015, repeat 06/11/2020 showed hyperplastic polyp (Dr Vitale ) Migraine 02/04/2012 08/04/2023 Overview (08/03/2023): Last Assessment & Plan: Patient has had extensive evaluation in the past by Neurology specialist Dr. Rosa ,last seen in 04/09/2014 . He recommended the use of sumatriptan Previous work up in the past included an MRI of hr brain on 05/06/2003 that showed: no acute intra cranial process. Pt will continue to f/u with Neurology Uses Sumatriptan PRN Erectile dysfunction 02/04/2012 024 Complex tear of medial meniscus of right knee 08/04/2023 Family History Medical History Relation Comments No Known Problems Brother 1 No Known Problems Brother 2 No Known Problems Brother 3 No Known Problems Brother 4 No Known Problems Brother 5 No Known Problems Brother 6 No Known Problems Brother 7 Heart attack Father Hypertension Father Hypertension Mother Cancer Sister 1 No Known Problems Sister 2 No Known Problems Sister 3 No Known Problems Sister 4 No Known Problems Sister 5 No Known Problems Son 1 No Known Problems Son 2 Relation Status Comments Brother 1 Alive Brother 2 Alive Brother 3 Alive Brother 4 Alive Brother 5 Alive Brother 6 Alive Brother 7 Alive Father (Age 67) Mother (Age 87) Sister 1 Alive Sister 2 Alive Sister 3 Alive Sister 4 Alive Sister 5 Alive Son 1 Alive Son 2 Alive Social History Tobacco Use Types Packs/Day Years Used Date Smoking Tobacco: Never Smokeless Tobacco: Never Tobacco Cessation:Counseling Given: Not Answered Alcohol Use Standard Drinks/Week Comments Not Currently [...] Orientation Straight 12/23/2018 10 :25 AM EDT Last Filed Vital Signs Vital Sign Reading Time Taken Comments Blood Pressure 138/88 01/24/2024 9:45 AM EDT Pulse 70 01/24/2024 9:32 AM EDT Temperature 36.8 C (98.3 F) 12/03/2022 11:00 AM EDT Respiratory Rate 16 06/30/2023 1:37 PM EST Oxygen Saturation 98% 01/24/2024 9:32 AM EDT Inhaled Oxygen Concentration - - Weight 67.6 kg (149 lb) 01/24/2024 9:32 AM EDT Height 165.1 cm (5' 5 ) 01/24/2024 9:32 AM EDT Body Mass Index 24.79 01/24/2024 9:32 AM EDT Plan of Treatment Health Maintenance Due Date Last Done Comments DEPRESSION SCREENING 1972 HEPATITIS C SCREENING 02/24/1978 HIV ONE-TIME SCREENING (18-65 YEARS) 02/24/1978 PNEUMOCOCCAL VACCINES (50+ years) (1 of 2 - PCV) 02/24/1979 COLOGUARD 02/24/2005 COLONOSCOPY 02/24/2005 COLORECTAL CANCER SCREENING 02/24/2005 FIT TEST 02/24/2005 FOBT 02/24/2005 SIGMOIDOSCOPY 02/24/2005 VIRTUAL COLONOSCOPY 02/24/2005 ZOSTER VACCINES (1 of 2) 02/24/2010 RSV VACCINE (1 - Risk 60-74 years 1-dose series) 2020 DIABETIC EYE EXAM 12/18/2021 HEMOGLOBIN A1C 02/02/2024 08/02/2023, 07/14, 07/13/2022, Additional history exists LIPID PANEL 05/25/2024 05/25/2023, 04/16, 02/16/2014 BLOOD PRESSURE 07/23/2024 01/24/2024 CREATININE LEVEL 08/01/2024 08/02/2023, 02/2024, 05/10/2023, Additional history exists POTASSIUM LEVEL 08/01/2024 08/02/2023, 05/16, 05/10/2023, Additional history exists INFLUENZA VACCINE (#1) 2024 , 03/17/2022, 05/14/2021, Additional history exists COVID-19 VACCINE ( season) 2025 04/29/2021, 07/22/2020, 06/24/2020 Adult Td,Tdap Booster 08/13/2025 08/14/2015, 000 SMOKING STATUS SCREENING (Once After 26 Yrs) Completed 01/24/2024 HEPATITIS A VACCINES Aged Out No long er eligible based on patient's age to complete this topic HIB VACCINES Aged Out No longer eligi ble based on patient's age to complete this topic MENINGOCOCCAL VACCINES (ACWY) Aged Out No longer eligible based on patient's age to complete this topic MENINGOCOCCAL VACCINES (B) Aged Out N o longer eligible based on patient's age to complete this topic Medical Devices Implanted Type Area Debit Agent Device Identifier Shelf Expiration Date Model / Serial / Lot Tray Tibial Knee Riverside Parkman Aoy Rt Medial Size B - [id number] Implanted:Qty: 1 on 09/28/2022 by Andrew Huntley MD at [facility] STANDARD Right: Knee [employer] 12/10/2031 [id number] / / [id number] Knee Bearing 4mm Sm Tibial Riverside Arcom Polyethylene Anatomic Meniscal Rt - [id number] Implanted:Qty: 1 on 09/28/2022 by Andrew Huntley MD at [facility] STANDARD Right: Knee [employer] 04/30/2024 [id number] / / [id number] Screw In Back Knee Implant Small Component Femoral Riverside Parkman Alloy Twin Pegged Cemented Partial - [id number] Implanted:Qty: 1 on 09/28/2022 by Andrew Huntley MD at [facility] Right: Knee [employer] 05/02/2032 [id number] / / [id number] Bone Cement Antibiotic Refobacin - [id number] Implanted:Qty: 1 on 09/28/2022 by Andrew Huntley MD at [facility] Right: Knee [employer]ERNABE [employer] 12/13/2024 [id number] / / [id number] Procedures Procedure Name Priority Date/Time Associated Diagnosis Comments HEMOGLOBIN A1C Routine 08/02/2023 4:07 PM EDT Type 2 diabetes mellitus with other specified complication, unspecified whether exterminator helper insulin use BASIC METABOLIC PANEL Routine 08/02/2023 4:07 PM EDT Primary localized osteoarthrosis of left lower leg LIPID PANEL Routine 05/25/2023 7:40 AM EST Type 2 diabetes mellitus with other specified complication, unspecified whether exterminator helper insulin use from Last 3 Months or Most Recently Relevant to Health Maintenance Results * (ABNORMAL) Hemoglobin A1c (08/02/2023 4:07 PM EDT) HEMOGLOBIN A1C 6.5(H) 4.3 - 5.8 % [facility] Blood 08/02/2023 4:07 PM EDT 08/02/2023 4:13 PM EDT us Andrew Huntley MD LAB BLOOD ORDERABLES Final Re sult [facility] [address] [place] [address] * (ABNORMAL) Basic metabolic panel (08/02/2023 4:07 PM EDT) SODIUM 139 133 - 146 mmol/L [facility] CHLORIDE 102 96 - 108 mmol/L [facility] POTASSIUM 3.8 3.3 - 5.1 mmol/L [facility] CO2 26 21 - 35 mmol/L [facility] BUN 20(H) 6 - 19 mg/dL [facility] CREATININE 1.10 0.5 - 1.5 mg/dL [facility] GLUCOSE 109(H) 70 - 99 mg/dL [facility] CALCIUM 9.2 8.4 - 10.3 mg/dL [facility] EGFR 75 >59 mL/min/1.7 3m2 [facility] Comment:Estimated glomerular filtration rate calculated using the CKD-EPI refit equation. ANION GAP 15 10 - 20 mmol/L [facility] Blood 08/02/2023 4:07 PM EDT 08/02/2023 4:13 PM EDT us Andrew Huntley MD LAB BLOOD ORDERABLES Final Re sult [address] [address] * (ABNORMAL) Lipid panel (05/25/2023 7:40 AM EST) HDL 27 mg/dL [facility] Comment: Interpretation <40 mg/dL: Low HDL cholesterol (major risk factor for CHD) Greater than or equal to 60 mg/dL: High HDL cholesterol ( negative risk factor for CHD) HDL - cholesterol is affected by a number of factors, e.g. smoking, excerise, hormones, sex and age. CHOLESTEROL 179 0 - 240 mg/dL [facility] TRIGLYCERIDES 399(H) 30 - 160 mg/dL [facility] LDL 72 50 - 129 mg/dL [facility] Comment: LDL levels in terms of risk for coronary heart disease: <100 mg/dL: Optimal 100-129 mg/dL: Near or above optimal 130-159 mg/dL: Borderline high 160-189 mg/dL: High >190 mg/dL: Very High CARDIAC RISK RATIO 6.6(H) 3.4 - 5.0 C [facility] Blood 05/25/2023 7:40 AM EST 05/25/2023 7:42 AM EST us Sonu Campbell DO LAB BLOOD ORDERABLES Final Re sult [facility] [address] [place] [address] from Last 3 Months or Most Recently Relevant to Health Maintenance Insurance MEDICARE PART A & B [facility] MEDICARE PART A & B MEDICARE PART A & B MEDICARE PART A & B MEDICARE PART A & B MEDICARE PART A & B [place] & [place] PART A & B [facility] MEDICARE PART A & B [facility] P[employer] MEDICARE PART A & B Member Subscriber Plan / Payer (Ef fective 1998-Present) Name:Jakob Machado Member ID:[id number] Relation to Subscriber:Self Name:Jakob Machado Subscriber ID:[id number] Payer ID:[id number] Group ID:Not on file Type:Medicare Address: [facility] [employer] [facility] [address] [place] [address] Advance Directives For more information, please contact: [phone] (9AM - 5PM [facility], Tuesday-Tuesday) * Full Code (Presumed) (Latest Code Status on File) Date Activated Date Inactivated Comments 05/24/2017 9:48 AM 05/24/2017 7:05 PM Care Teams Fire Sprinkler Installer Relationship Specialty Start Date End Date Arsh Torres MD [address] [place] [address] [address] BETTY Deutsch [phone] PCP - General 03/03/17 Additional Source Comments The information contained in this document represents components of the legal health record. It is not the complete legal health record.Located Within [facility]
--- OUTSIDE RECORDS SUMMARY | 2025-01-15 09:39 | XMS_ITS | Encounter Summary ---
Author Organization [facility] Address [address] [place] [address] Phone Care Team Providers Care Truck Shop Mechanic Name Role Phone Arsh Torres MD Primary Care Provide r Encounter Details Date Type Department Care Team (Latest Contact Info) Description 01/12/2019 Transcribe Orders Virtual Department [address] [place] [id number] Reymundo Salvador MD [address] [place] [address], [address] [address] [email or web address] Cyst of kidney, acquired (Primary Dx) Social History Tobacco Use Types [...] of this encounter Results * US Kidneys (04/23/2019 8:11 AM EST) Anatomical Region Laterality Modality Abdomen, Kidney Ultrasound 04/23/2019 9:15 AM EST Impressions 04/23/2019 9:38 AM EST Subcentimeter bilateral simple renal cysts. Nonobstructing 4 mm RIGHT renal calculus. No hydronephrosis. POS - [id number] Narrative 04/23/2019 9:38 AM EST EXAM: US KIDNEYS HISTORY: CYST OF KIDNEY, ACQUIRED TECHNIQUE: Grayscale and color Doppler ultrasound imaging of the kidneys. COMPARISON: CT abdomen pelvis 08/05/2018. MRI abdomen 09/14/2018. FINDINGS: RIGHT KIDNEY: Normal renal size. Measures 10.9 x 5.8 cm. Cortical echogenicity is normal. Normal cortical thickness. There is no hydronephrosis. There is a nonobstructing 4 mm lower pole calculus. Several subcentimeter cysts including a 6 mm cyst in the lower pole, 6 mm cyst in the upper pole. LEFT KIDNEY: Normal renal size. Measures 9.8 x 5.6 cm. Cortical echogenicity is normal. Normal cortical thickness. There is no hydronephrosis. There are no shadowing calculi. There are several anechoic simple cysts including a 6 mm cyst in the lower pole, 7 mm cyst in the lower pole. Procedure Note Hallie wOens MD - 04/23/2019 EXAM: US KIDNEYS HISTORY: CYST OF KIDNEY, ACQUIRED TECHNIQUE: Grayscale and color Doppler ultrasound imaging of thekidneys. COMPARISON: CT abdomen pelvis 08/05/2018. MRI abdomen 09/14/2018. FINDINGS: RIGHT KIDNEY: Normal renal size. Measures 10.9 x 5.8 cm. Corticalechogenicity is normal. Normal cortical thickness. There is nohydronephrosis. There is a nonobstructing 4 mm lower pole calculus.Several subcentimeter cysts including a 6 mm cyst in the lower pole, 6 mmcyst in the upper pole. LEFT KIDNEY: Normal renal size. Measures 9.8 x 5.6 cm. Corticalechogenicity is normal. Normal cortical thickness. There is nohydronephrosis. There are no shadowing calculi. There are severalanechoic simple cysts including a 6 mm cyst in the lower pole, 7 mm cystin the lower pole. IMPRESSION: Subcentimeter bilateral simple renal cysts. Nonobstructing 4 mm RIGHT renal calculus. No hydronephrosis. POS - [id number] Reymundo Salvador MD [facility] Final Result documented in this encounter Visit Diagnoses Diagnosis Cyst of kidney, acquired- Primary Acquired cyst of kidney Cyst of kidney, acquired Acquired cyst of kidney documented in this encounter Care Teams Truck Shop Mechanic Relationship Specialty Start Date End Date Arsh Torres MD [address] [place] [address] [place] [id number] [email or web address] PCP - General 03/03/17 documented as of this encounter Additional Source Comments The information contained in this document represents components of the legal health record. It is not the complete legal health record.[facility]
--- OUTSIDE RECORDS SUMMARY | 2025-01-15 09:39 | XMS_ITS | Encounter Summary ---
Author Organization [facility] Address [address] [place] [address] Phone Care Team Providers Care Structural Steel Trades Worker Name Role Phone Arsh Torres MD Primary Care Provide r Encounter Details Date Type Department Care Team (Latest Contact Info) Description 04/01/2020 Transcribe Orders [facility] [address] 2[address] [place] [address] Roselia Blanco PA-C [address], [address]. [address] [place] [address] [email or web address] Pancreatic cyst (Primary Dx); Constipation, unspecified constipation type; Abdominal pain, left lower quadrant Social History Tobacco Use Types Packs/Day Years [...] documented as of this encounter Results * TSH (04/01/2020 3:50 PM EST) TSH 1.46 0.27 - 4.20 uIU/mL [facility] Blood 04/01/2020 3:50 PM EST 04/01/2020 3:55 PM EST Roselia WEEKS-Carmen LAB BLOOD ORDERABLES Final Resu lt [address] [address] * C-Reactive Protein (04/01/2020 3:50 PM EST) Pathologist [facility] C REACTIVE PROTEIN 1.2 0.0 - 4.0 mg/L [facility] Blood 04/01/2020 3:50 PM EST 04/01/2020 3:55 PM EST us Roselia WEEKS-C[facility] LAB BLOOD ORDERABLES Final Resu Performing Organization Address City/[facility]/ZIP Co de Phone Number [address] [address] * Comprehensive metabolic panel (04/01/2020 3:50 PM EST) SODIUM 139 133 - 146 mmol/L [facility] POTASSIUM 4.3 3.3 - 5.1 mmol/L [facility] CHLORIDE 106 96 - 108 mmol/L [facility] CO2 23 21 - 35 mmol/L [facility] BUN 19 6 - 19 mg/dL [facility] CREATININE 1.00 0.5 - 1.5 mg/dL [facility] GLUCOSE 98 70 - 99 mg/dL [facility] ALBUMIN 4.3 3.9 - 4.8 g/dL [facility] TOTAL PROTEIN 7.1 6.5 - 8.0 g/dL [facility] CALCIUM 9.3 8.4 - 10.3 mg/dL [facility] ALKALINE PHOSPHATASE 80 39 - 117 U/L [facility] TOTAL BILIRUBIN 0.3 0.0 - 1.2 mg/dL [facility] AST 24 0 - 37 U/L [facility] ALT 24 0 - 40 U/L [facility] GLOBULIN 2.8 1 - 4.8 g/dL [facility] EGFR 81 >59 mL/min/1.7 3m2 [facility] Comment:Estimated glomerular filtration rate calculated using the CKD-EPI equation. ANION GAP 14 10 - 20 mmol/L [facility] Blood 04/01/2020 3:50 PM EST 04/01/2020 3:55 PM EST Roselia Blanco PA-C LAB BLOOD ORDERABLES Final Resu lt Performing Organization Address [facility]/ZIP Co de Phone Number [address] [address] * (ABNORMAL) CBC (04/01/2020 3:50 PM EST) WBC 6.96 4.00 - 11.00 K/uL [facility] Comment:Note Reference Range updates to all CBC and Differential results. RBC 5.78(H) 3.90 - 5.69 M/uL [facility] HGB 15.3 12.4 - 17.3 g/dL [facility] Comment:Note updated Referen ce Ranges for all CBC and Differential results. HCT 46.1 37.0 - 51.0 % [facility] PLT 252 140 - 430 K/uL [facility] MCV 79.8 78.0 - 97.0 fL [facility] MCH 26.5 25.0 - 33.0 pg [facility] MCHC 33.2 32.0 - 36.0 g/dL [facility] RDW 14.5 11.0 - 15.0 % [facility] MPV 10.5 8.4 - 12.8 fl [facility] NRBC 0.00 0 /100 WBCs [facility] ABSOLUTE NRBC 0.00 0 K/uL [facility] Blood 04/01/2020 3:50 PM EST 04/01/2020 3:55 PM EST us Roselia Blanco PA-C LAB BLOOD ORDERABLES Final Resu lt Performing Organization Address [facility]/ZIP Co de Phone Number [address] [address] * Immunoglobulin A (04/01/2020 3:50 PM EST) IgA 393 70 - 400 mg/dL [facility] Blood 04/01/2020 3:50 PM EST 04/01/2020 3:55 PM EST us Roselia Blanco PA-C LAB BLOOD ORDERABLES Final Resu lt [facility] [address] [place] [address] * Tissue transglutaminase IgA (04/01/2020 3:50 PM EST) TTG IGA ANTIBODY <1.2 <4.0 (Negative) U/mL [facility] Blood 04/01/2020 3:50 PM EST 04/01/2020 3:55 PM EST Roselia Blanco PA-C LAB BLOOD ORDERABLES Final Resu lt [facility] [address] [place] [address] documented in this encounter Visit Diagnoses Diagnosis Pancreatic cyst- Primary Cyst and pseudocyst of pancreas Constipation, unspecified constipation type Abdominal pain, left lower quadrant documented in this encounter Care Teams Structural Steel Trades Worker Relationship Specialty Start Date End Date Arsh Torres MD [address] [place] [address] [place] [phone] [email or web address] PCP - General 03/03/17 documented as of this encounter Additional Source Comments The information contained in this document represents components of the legal health record. It is not the complete legal health record.[facility]
--- OUTSIDE RECORDS SUMMARY | 2025-01-15 09:39 | XMS_ITS | Encounter Summary ---
Author Organization [facility] Address [address] [place] [address] Phone Care Team Providers Care Office Machine Service Supervisor Name Role Phone Arsh Torres MD Primary Care Provide r Encounter Details Date Type Department Care Team (Latest Contact Info) Description 04/18/2020 Transcribe Orders Virtual Department [address] [place] [address] Roselia Blanco PA-C [address] [place] [address] [email or web address] Pancreatic cyst (Primary Dx); LLQ abdominal pain; Constipation, unspecified constipation type Social History Tobacco Use Types Packs/Day Years [...] as of this encounter Visit Diagnoses Diagnosis Pancreatic cyst- Primary Cyst and pseudocyst of pancreas LLQ abdominal pain Abdominal pain, left lower quadrant Constipation, unspecified constipation type documented in this encounter Care Teams Office Machine Service Supervisor Relationship Specialty Start Date End Date Arsh Torres MD [address] [place] [address] [address] BETTY Deutsch [phone] [email or web address] PCP - General 03/03/17 documented as of this encounter Additional Source Comments The information contained in this document represents components of the legal health record. It is not the complete legal health record.[facility]
--- OUTSIDE RECORDS SUMMARY | 2025-01-15 09:39 | XMS_ITS | Encounter Summary ---
Author Organization [employer] Address [address] [facility] 7t [place] [address] Care Team Providers Care Alteration Tailor Name Role Phone Arsh Gamez MD Primary Care Provide r Reason for Visit * Reason Onset Date Comments rescheduled appt mistakenly cancelled 05/17/2024 Encounter Details Date Type Department Care Team (Late st Contact Info) Description 05/17/2024 Telephone [facility] [address] [place], [place] [phone] Nickie, Sheyla [address] [place] [address] rescheduled appt mistakenly cancelled Social History Tobacco [...] call back for cancellations at their convenience documented in this encounter Plan of Treatment Upcoming Encounters Date Type Department Care Team (Late st Contact Info) Description 06/13/2025 8:00 AM EST Office Visit [facility] [address] [place] [address] Mari Bloom documented as of this encounter Visit Diagnoses Not on filedocumented in this encounter Additional Health Concerns Assessment Noted Time PHQ-9 Depression Total Score: 0 09/29/19 24 9:32 AM EDT documented as of this encounter Care Teams Alteration Tailor Relationship Specialty Start Date End Date Arsh Gamez MD [address] [place] [address] PCP - General Internal Medicine 12/18/13 documented as of this encounter
--- OUTSIDE RECORDS SUMMARY | 2025-01-15 09:39 | XMS_ITS | Clinical Summary ---
Author Organization [facility] Address [address] [place] [address] Care Team Providers Care Health Services Administrator Name Role Phone Arsh Sharif MD Primary [...] Medicaid [place] Medicaid [place] Care Teams Health Services Administrator Relationship Specialty Start Date End Date Arsh Sharif MD [address] [place] [address] [phone] PCP - General Internal Medicine 08/24/21
--- OUTSIDE RECORDS SUMMARY | 2025-01-15 09:39 | XMS_ITS | Encounter Summary ---
Author Organization 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); Screening for prostate cancer Social History Tobacco Use Types Packs/Day Years [...] of this encounter Results * PSA (screening) (06/16/2021 9:38 AM EST) PSA 1.33 0 - 4.00 ng/mL [facility] Blood 06/16/2021 9:38 AM EST 06/16/2021 9:40 AM EST us Della WEEKS LAB BLOOD ORDERABLES Final Resul t [facility] [address] [place] [address] documented in this encounter Visit Diagnoses Diagnosis BPH without obstruction/lower urinary tract symptoms- Primary Screening for prostate cancer Special screening for malignant neoplasm of prostate documented in this encounter Care Teams Survey Director Relationship Specialty Start Date End Date Arsh Torres MD [address] [place] [address] [address] [place] [phone] PCP - General 03/03/17 documented as of this encounter Additional Source Comments The information contained in this document represents components of the legal health record. It is not the complete legal health record.[facility]
--- OUTSIDE RECORDS SUMMARY | 2025-01-15 09:39 | XMS_ITS | Encounter Summary ---
Author Organization [facility] Address [address] [place] [address] Phone Care Team Providers Care Factory Superintendent Name Role Phone Arsh Torres MD Primary Care Provide r Encounter Details Date Type Department Care Team (Latest Contact Info) Description 06/05/2020 Transcribe Orders Virtual Department [address] [place] [address] Kalpesh Vitale MD [address] [place] [address] [phone] [email or web address] Pre-operative laboratory examination (Primary Dx) Social History Tobacco Use Types [...] documented as of this encounter Results * COVID-19 PCR Order (06/08/2020 8:01 AM EST) COVID-19 Comment [id number] [facility] COVID Testing Status Sent to [facility] 06/08/2020 8:01 AM EST 06/08/2020 11:43 AM EST us Kalpesh Vitale MD BODY FLUIDS AND STOOLS ORDER ANDIE Final Result [facility] [address] [place] [address] documented in this encounter Visit Diagnoses Diagnosis Pre-operative laboratory examination- Primary Pre-procedural laboratory examination documented in this encounter Care Teams Factory Superintendent Relationship Specialty Start Date End Date Arsh Torres MD [address] [place] [address] [address] [place] [address] PCP - General 03/03/17 documented as of this encounter Additional Source Comments The information contained in this document represents components of the legal health record. It is not the complete legal health record.[facility]
--- OUTSIDE RECORDS SUMMARY | 2025-01-15 09:39 | XMS_ITS | Encounter Summary ---
Author Organization [facility] Address [address] [place] [address] Phone Care Team Providers Care Vault Cashier Name Role Phone Arsh Torres MD Primary Care Provide r Encounter Details Date Type Department Care Team (Late st Contact Info) Description 02/23/2019 Ancillary Orders [facility], X-Ray - [address] [place] [address] Arsh Torres MD [address] [facility] [address] [place] [phone] [email or web address] Left knee pain, unspecified chronicity Social History Tobacco [...] documented as of this encounter Results * XR KNEE 4 OR MORE VIEWS (BILATERAL) (02/23/2019 11:18 AM EDT) Anatomical Region Laterality Modality Knee Bilateral, Knee Right, Knee Left Radiographic Imaging 02/23/2019 3:37 PM EDT Impressions 02/23/2019 4:56 PM EDT Bilateral knee degenerative arthrosis, most significant medial compartments of both knees, and greater on the RIGHT. Chondrocalcinosis visible in the cartilage of the LEFT knee. No joint effusions. POS - [id number] Edited by: Sanam Velazquez on 02/23/2019 3:52 PM Narrative 02/23/2019 4:56 PM EDT EXAM: XR KNEE 4 OR MORE VIEWS (BILATERAL) HISTORY: Bilateral knee pain. TECHNIQUE: Four views of the bilateral knees, including AP standing view. FINDINGS: LEFT KNEE: No fracture or dislocation. Normal alignment. There is chondrocalcinosis. No joint effusion. There is mild to moderate medial compartment joint space narrowing. Lateral and patellofemoral compartment joint spaces are preserved. There is mild marginal spurring in all three compartments, most pronounced patellofemoral. There is superior and inferior patellar enthesopathy with spurring. RIGHT KNEE: No fracture or dislocation. Normal alignment. Moderate medial compartment joint space narrowing. Lateral and patellofemoral compartment joint spaces preserved. Small tricompartmental degenerative osteophytes noted, most pronounced patellofemoral, seen on the lateral view. No joint effusion. There is superior and inferior patellar degenerative enthesopathic spurring. Procedure Note Hallie Owens MD - 02/23/2019 EXAM: XR KNEE 4 OR MORE VIEWS (BILATERAL) HISTORY: Bilateral knee pain. TECHNIQUE: Four views of the bilateral knees, including AP standingview. FINDINGS: LEFT KNEE: No fracture or dislocation. Normal alignment. There ischondrocalcinosis. No joint effusion. There is mild to moderate medialcompartment joint space narrowing. Lateral and patellofemoral compartmentjoint spaces are preserved. There is mild marginal spurring in all threecompartments, most pronounced patellofemoral. There is superior andinferior patellar enthesopathy with spurring. RIGHT KNEE: No fracture or dislocation. Normal alignment. Moderate medialcompartment joint space narrowing. Lateral and patellofemoral compartmentjoint spaces preserved. Small tricompartmental degenerative osteophytesnoted, most pronounced patellofemoral, seen on the lateral view. No jointeffusion. There is superior and inferior patellar degenerativeenthesopathic spurring. IMPRESSION: Bilateral knee degenerative arthrosis, most significant medialcompartments of both knees, and greater on the RIGHT. Chondrocalcinosis visible in the cartilage of the LEFT knee. No joint effusions. POS - [id number] Edited by: Sanam Velazquez on 02/23/2019 3:52 PM Arsh Torres MD IMG XR LOWER EXTREMIT Y Final Result documented in this encounter Visit Diagnoses Diagnosis Left knee pain, unspecified chronicity Left knee pain, unspecified chronicity documented in this encounter Care Teams Vault Cashier Relationship Specialty Start Date End Date Arsh Torres MD [address] [place] [address] [place] [phone] [email or web address] PCP - General 03/03/17 documented as of this encounter Additional Source Comments The information contained in this document represents components of the legal health record. It is not the complete legal health record.[facility]
--- OUTSIDE RECORDS SUMMARY | 2025-01-15 09:39 | XMS_ITS | Clinical Summary ---
Author Organization [employer] Address [address] [facility] [address] [place] [address] Care Team Providers Care Senior Financial Consultant Name Role Phone Arsh Gamez MD Primary Care Provide r Allergies Active Allergy Reactions Criticality Noted Date Comments Peanut-Containing Drug Products Anaphylaxis High Medications amLODIPine (Norvasc) 5 MG tablet TOME MARCELINA TABLETA TODOS LOS D 08/14/19 23 Active hydrALAZINE (Apresoline) 50 MG tablet Take 1.5 tablets by mouth every 8 (eight) hours. 12/11/19 21 Active tamsulosin (Flomax) 0.4 MG 24 hr capsule Take 1 capsule by mouth at bedtime. 07/26/19 23 Active amoxicillin (Amoxil) 500 MG capsule Take 4 caps 1 hour prior dental procedure 12 capsule 05/25/19 25 Active omeprazole (PriLOSEC) [address] capsule TOME MARCELINA CAPSULA DOS VECES AL JOHN PAUL BEFORE A MEAL 180 capsule 3 07/05/19 25 Active metFORMIN XR (Glucophage-XR) 500 MG 24 hr tablet TOME MARCELINA TABLETA TODOS LOS [facility] [employer] SPECIALIST 90 tablet 3 07/05/19 25 Active metoprolol succinate XL (Toprol-XL) 25 MG 24 hr tablet TOME 1 TABLETA POR VIA ORAL TODOS [place]CK[place] 90 tablet 1 09/26/19 25 Active amoxicillin (Amoxil) 500 MG capsule Take 4 caps 1 hour prior dental procedure 12 capsule 11/28/19 25 Active finasteride (Proscar) 5 MG tabletIndicatio ns:Benign prostatic hyperplasia with urinary frequency TAKE 1 TABLET (5 MG) BY MOUTH ONCE PER DAY. 90 tablet 1 11/30/19 25 Active glucose blood (FREESTYLE LITE) test stripIndication s:Type 2 diabetes mellitus without complication, without long-term current use of insulin ([facility]) USE DIRECTED TO TEST BLOOD SUGAR ONCE DAILY 50 each 7 12/19/19 25 Active TRUEplus Lancets 33G miscIndications :Type 2 diabetes mellitus without complication, without long-term current use of insulin ([facility]) USE DIRECTED TO TEST BLOOD SUGAR ONCE DAILY 100 each 3 12/19/19 25 Active Blood Glucose Monitoring Suppl (FreeStyle Buckholts Lite) w/Device kitIndications: Type 2 diabetes mellitus without complication, without long-term current use of insulin ([facility]) Use to test blood sugar once daily 1 kit 12/26/19 25 Active aspirin 81 MG EC tablet Take 1 tablet by mouth Once per day. Active clotrimazole-be tamethasone (Lotrisone) cream APPLY BY TOPICAL ROUTE EVERY 12 HOURS Active meloxicam (Mobic) 15 MG tablet TOME 1 TABLETA POR V A ORAL TODOS LOS D Active fluticasone (Flonase) 50 MCG/ACT nasal sprayIndication s:Seasonal allergies ADMINISTER 1 TO SPRAYS INTO EACH NOSTRIL IN THE MORNING. SHAKE GENTLY. BEFORE FIRST USE, PRIME PUMP. AFTER USE, CLEAN TIP AND REPLACE CAP. 48 mL 12/15/19 24 025 Discontinued(T herapy completed) acetaminophen (Tylenol) 500 MG tablet Take 1 tablet (500 mg) by mouth every 6 (six) hours if needed for mild pain for up to 20 doses. 20 tablet 01/11/20 24 025 Discontinued(T herapy completed) lisinopril 40 MG tabletIndicatio ns:Primary hypertension TOME MARCELINA TABLETA TODOS [place] 90 tablet 3 04/09/20 24 025 Discontinued(T herapy completed) glucose blood (FREESTYLE LITE) test stripIndication s:Type 2 diabetes mellitus without complication, without long-term current use of insulin ([facility]) TEST BLOOD SUGAR ONCE DAILY 100 strip 3 04/09/20 24 025 Discontinued(R eorder (will not trigger notification to Pharmacy)) Lancets miscIndications :Type 2 diabetes mellitus without complication, without long-term current use of insulin ([facility]) Use to test blood sugar twice times daily 100 each 12/19/19 25 025 Discontinued Blood Glucose Monitoring Suppl (FreeStyle Buckholts Lite) w/Device kitIndications: Type 2 diabetes mellitus without complication, without long-term current use of insulin ([facility]) Use to test blood sugar 2 times daily 1 kit 12/19/19 25 025 Discontinued(R eorder (will not trigger notification to Pharmacy)) glucose blood (FREESTYLE LITE) test stripIndication s:Type 2 diabetes mellitus without complication, without long-term current use of insulin ([facility]) TEST BLOOD SUGAR ONCE DAILY 100 strip 3 12/19/19 25 025 Discontinued Active Problems Problem Noted Date Diagnosed Date [...] work yet and needs to apply to [place] (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 Arrington last seen 10/02/2012. He did not think his blood work was indicative of SLE. last seen 12/05/2012 Chronic lower back pain 12/18/2021 Assessment & Plan (12/20/2024 11:11 AM EDT): Pt with acute on chronic low back pain Report good days and bad days. Patient has been deemed disable as a result in the past Hx of right alfonso laminectomy defect at L4-L5 and L5 to S1 MRI of the LS spine done at [facility] on 02/18/2000 showed no evidence of recurrent disc herniation. In the past he has received steroid injections and takes Flexeril and Diclofenac prn. He has had PT in the past as well. Given persistent of pain I have placed an order for a repeat MRI and I have referred back to the [facility] for evaluation. Assessment & Plan (06/16/2022 1:58 PM EST): Pt had a previous Hx of right alfonso laminectomy defect at L4-L5 and L5 to S1 most recent MRI of the LS spine done at [facility] on 02/18/2000 showed no evidence of recurrent disc herniation. In the past he has received steroid injections and takes Flexeril and Diclofenac prn. He has had PT in the past as well. Pt was referred back to the [facility] in the past CKD (chronic kidney disease) stage 1, GFR 90 ml/min or greater 12/18/2021 Depression 12/18/2021 Paroxysmal tachycardia 12/18/2021 Assessment & Plan (12/18/2024 9:16 AM EDT): Previous EKG showed: frequent PVCs Previous visit pt was referred for an Event monitor to r/o paroxysmal SVT Pt under the care of Cardiology, last seen 09/25/2024 Assessment & Plan (05/03/2024 9:26 AM EST): [...] diabetes mellitus without complication Assessment & Plan (12/18/2024 9:52 AM EDT): Pt here for a follow up in regards to his DM Pt tells me he is back taking Metformin XR 500 mg po daily. Pt tells me he has been monitoring his glucose and is ranging between 90-105 Hgb A1c on 12/18/2024: 5.8 Microalbumin 06/17/2022 was 42 Pt is off DAVID inhibitor per Nephrology Foot check risk of zero Pt reports compliance with Asa 81 mg po daily Plan: Continue taking Metformin. 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 Will repeat Plan: continue current regimen Follow up in 4 months in person Assessment & Plan (10/19/2022 8:29 AM EDT): Televisit BP controlled per his report He is on: lisinopril 40. hydralazine 50 mg 2 tabs po TID , Metoprolol succinate ER 25 mg every day, HCTZ discontinued due to pancreatitis Pt back to see Dr Campbell ( electrician journeyman wireman) Pt stopped Amlodipine due GI side effects and dizziness BMP 06/2022 Normal Plan: continue current regimen Follow up in 4 months Assessment & Plan (06/16/2022 1:52 PM EST): Here for a f/u BP controlled He is on: lisinopril 40. hydralazine 50 mg 2 tabs po TID , Metoprolol succinate ER 25 mg qd a HCTZ discontinued due to pancreatitis Pt back to see Dr Campbell ( electrician journeyman wireman) Pt stopped Amlodipine due GI side effects and dizziness Plan: continue current regimen Follow up in 4 months Gastroesophageal reflux disease without esophagi tis 02/12/2014 Assessment & Plan (06/16/2022 2:01 PM EST): Patient under the care [facility]. Last seen by Dr Vitale [...] Encounters Date Type Department Care Team Description 01/10/2025 Telephone [facility] [place], [place] [address] Arsh Gamez MD Referral 12/28/2024 10:00 AM EDT Office Visit [facility] [address] [place] [address] Power Davis, DMD 12/25/2024 Telephone [facility] [address] [place] [address] Arsh Gamez MD Prior Authorization 12/25/2024 Telephone [facility] [address] [place], [place] [address] Arsh Gamez MD Nurse Triage 12/24/2024 Refill [facility] [place] [address] Arsh Gamez MD Type 2 diabetes mellitus without complication, without long-term current use of insulin (CMS/HCC) 12/20/2024 Telephone [facility] [place] [address] Arsh Gamez MD Referral 12/19/2024 Telephone [facility] [place] [address] Arsh Gamez MD Call Back Request 12/18/2024 9:00 AM EDT Office Visit [facility] [place] [address] Arsh Gamez MD Type 2 diabetes mellitus without complication, without long-term current use of insulin (CMS/HCC) (Primary Dx); Essential hypertension; Paroxysmal tachycardia (CMS/HCC); Encounter for immunization; Chronic midline low back pain without sciatica 12/18/2024 Refill [facility] [address] [place] [address] Arsh Gamez MD Type 2 diabetes mellitus without complication, without long-term current use of insulin (CMS/HCC) 12/18/2024 Travel 12/17/2024 Telephone [facility] [address] [place] [address] Arsh Gamez MD Chart Prep 12/13/[address] [address] Arsh Gamez MD appt request 12/11/2024 Orders Only [facility] [address] [place] [id number] Arsh Gamez MD 12/04/[address] [address] Arsh Gamez MD telephone call 11/27/2024 8:00 AM EDT Office Visit [facility] [address] [place] [address] Trena Lozano 11/27/2024 Refill [facility] [address] [place] [address] Arsh Gamez MD Benign prostatic hyperplasia with urinary frequency from Last 3 Months Immunizations Immunization Administration Dates Next Due Hep B, adult 04/17/2001,01/12/2000,12/14/1999 Influenza injectable quadriv alent IIV4 with preservative 01/30/2019,03/15/2016,03/21/2015 Influenza injectable quadriv alent preservative free 04/02/2023,03/17/2022,05/14/2021,2019,02/08/2018 Influenza, IIV3, injectable 02/12/2014, 1 Influenza, Split (incl. latrell fied surface antigen) 03/07/2013,02/04/2012 Pneumococcal Conjugate PCV 20 12/18/2024 TD (adult), 2 Lf tetanus tox oid, preservative free, adsorbed 12/14/1999 Tdap 08/14/2015 Social History Tobacco Use Types Packs/Day Years Used Date Smoking Tobacco: Never Passive Smoke Exposure: Never Smokeless Tobacco: Never Tobacco Cessation:Counseling Given: Not Answered Alcohol Use Standard Drinks/Week Comments Defer 0 (1 standard drink = 0.6 oz pur e alcohol) Depression Answer Date Recorded Patient Health Questionnaire-9 Score 0 12/18/2024 Patient Health Questionnaire-9 Score 0 12/18/2024 Last PHQ-9: Questionnaire Data Not on file 0 12/18/2024 Housing Stability Answer Date Recorded What is your housing situation today? I have timothy granger 12/18/[address] you li ve. Do you have problems with any of the following? None of the above 12/18/2024 Food Insecurity Answer Date Recorded Within the past 12 months, y ou worried that your food would run out before you got money to buy more: Never True 12/18/2024 Within the past 12 months,th e food you bought just didn't last and you didn't have enough money to get more: Never True 09/2024 Transportation Answer Date Recorded In the past 12 months, has l ack of transportation kept you from medical appts, meetings, work or from getting things needed for daily living? No 12/18/2024 Utilities Answer Date Recorded In the past 12 months, has t he electric, gas, oil or water company threatened to shut off services in your home? No 12/18/2024 Depression Answer Date Recorded Patient Health Questionnaire-2 Score 0 12/18/2024 Internet Access Answer Date Recorded Internet Access Q1 Yes 12/18/2024 Internet Access Q2 Not on file 12/18/2024 Sex and Gender Information Value Date Recorded Sex Assigned at Male 03/15/2022 10:15 AM EDT Legal Sex Male 10:15 AM EDT Gender Identity Male 03/15/2022 10:15 AM EDT Sexual Orientation Straight 03/15/2022 10 :15 AM EDT Last Filed Vital Signs Vital Sign Reading Time Taken Comments Blood Pressure 154/78 12/28/2024 10:00 AM EDT Pulse 89 12/28/2024 10:00 AM EDT Temperature 36.4 C (97.6 F) 12/18/2024 9:01 AM EDT Respiratory Rate 20 12/18/2024 9:01 AM EDT Oxygen Saturation 98% 12/18/2024 9:01 AM EDT Inhaled Oxygen Concentration - - Weight 67.1 kg (148 lb) 12/18/2024 9:01 AM EDT Height 165.1 cm (5' 5 ) 12/18/2024 9:01 AM EDT Body Mass Index 24.63 12/18/2024 9:01 AM EDT Plan of Treatment Upcoming Encounters Date Type Department Care Team (Late st Contact Info) Description 06/13/2025 8:00 AM EST Office Visit [facility] ADULT [facility] [address] [place] [address] Mari Bloom Health Maintenance Due Date Last Done Comments CT Colonography 1960 FIT DNA/Cologuard 1960 FIT 1960 FOBT 1960 HIV Screening 1960 Sigmoidoscopy 1960 Diabetes: Foot Exam 02/24/1970 Eye Exam 02/24/1970 Zoster Vaccines (1 of 2) 02/24/2010 RSV Patients and Patients Aged 60 years or older (1 - Risk 60-74 years 1-dose series) 2020 COVID-19 Vaccine ( season) 2024 04/29/2021, 07/22/2020, 06/24/2020 Influenza Vaccine (#1) 2025 , 03/17/2022, 05/14/2021, Additional history exists Alcohol/Substance Use Screening 05/03/2025 05/03/2024 Lipid Panel 05/23/2025 05/23/2024, 04/16, 06/17/2022, Additional history exists Dental Oral Exam 05/31/2025 11/27/2024, , 08/03/2023, Additional history exists Dental Prophylaxis 05/31/2025 11/27/2024, 0 05/29/2024, 08/03/2023, Additional history exists Colonoscopy 06/11/2025 06/11/2020, 06/11/2020 Colorectal Cancer Screening 06/11/2025 Diabetes: Hemoglobin A1C 06/20/2025 025, 05/03/2024, 08/02/2023, Additional history exists DTaP/Tdap/Td Vaccines (2 - Td or Tdap) 08/13/2025 08/14/2015, 12/14/1999 Dental X-Ray: Bitewings 11/28/2025 11/28/19 25, 01/12/2024, 08/03/2023, Additional history exists Diabetes: Urine Protein Screening 12/10/2025 12/10/2024, 04/19/2024, 06/17/2022, Additional history exists Depression Screening 12/18/2025 12/18/2024, 12/19/19 25 Disability Screening 12/18/2025 12/18/2024 SDOH Screening 12/18/2025 12/18/2024 Tobacco Screening 12/18/2025 12/18/2024 Dental X-Ray: Full Mouth 01/11/2027 01/11/2024 Hepatitis B Vaccines Completed 04/17/2001, 01/12/2000, 12/14/1999 Hepatitis C Screening Completed 06/17/2022 , 06/17/2022, 12/30/2021 Pneumococcal Vaccine: 50+ Years Completed 12/18/2024 HIB Vaccines Aged Out No longer eligi [...] patient's age to complete this topic Meningococcal B Vaccine Aged Out No l onger eligible based on patient's age to complete [...] Procedure Name Priority Date/Time Associated Diagnosis Comments CASE PRESENTATION, DETAILED AND EXTENSIVE TREATMENT PLANNING Routine 12/28/2024 10:00 AM EDT 31 MO AMALGAM - 2 SURF, PRIMARY OR PERMANENT Routine 12/28/2024 10:00 AM EDT MR LUMBAR SPINE WO CONTRAST Routine 12/25/2024 7:30 PM EDT Chronic midline low back pain without sciatica POCT GLYCATED HEMOGLOBIN, TOTAL Routine 12/18/2024 9:10 AM EDT Type 2 diabetes mellitus without complication, without long-term current use of insulin ([facility]) POCT GLUCOSE Routine 12/18/2024 9:08 AM EDT Type 2 diabetes mellitus without complication, without long-term current use of insulin ([facility]) BASIC METABOLIC PANEL Routine 12/10/2024 9:17 AM EDT PSA, TOTAL Routine 12/10/2024 9:17 AM EDT URINE PROTEIN, TOTAL, RANDOM (W/O CREATININE) Routine 12/10/2024 9:12 AM EDT CREATININE, RANDOM URINE Routine 12/10/2024 9:12 AM EDT URINALYSIS, COMPLETE Routine 12/10/2024 9:12 AM EDT PERIODIC ORAL EVALUATION - ESTABLISHED PATIENT Routine 11/27/2024 8:00 AM EDT CASE PRESENTATION, DETAILED AND EXTENSIVE TREATMENT PLANNING Routine 11/27/2024 8:00 AM EDT INTRAORAL - PERIAPICAL EACH ADDITIONAL RADIOGRAPHIC IMAGE Routine 11/27/2024 8:00 AM EDT INTRAORAL - PERIAPICAL FIRST RADIOGRAPHIC IMAGE Routine 11/27/2024 8:00 AM EDT BITEWINGS - 4 RADIOGRAPHIC IMAGES Routine 11/27/2024 8:00 AM EDT PROPHYLAXIS - ADULT Routine 11/27/2024 8 :00 AM EDT LIPID PANEL, STANDARD Routine 05/23/2024 8:09 AM EST Hypertriglyceridemi a PANORAMIC RADIOGRAPHIC IMAGE Routine 01/11/2024 1:00 PM EDT HEPATITIS C ANTIBODY REFLEX Routine 06/17/2022 10:14 AM EST HM COLONOSCOPY Routine 06/11/2020 8:26 AM EST from Last 3 Months or Most Recently Relevant to Health Maintenance Results * MR Lumbar Spine w/o Contrast (12/25/2024 7:30 PM EDT) Anatomical Region Laterality Modality Spine, L-spine Magnetic Resonan ce 12/25/2024 7:30 PM EDT Narrative 12/26/2024 7:16 AM EDT [address] [address] Magnetic Resonance Report Signed Patient: Jakob Machado MR#: [id number] : 1960 Acct:[id number] Age/Sex: 64 / M ADM Date: 12/25/24 Loc: HO.MRI Attending Dr: Arsh Torres MD Ordering Physician: Arsh Torres MD Date of Service: 12/25/24 Procedure(s): MR lumbar spine wo con Accession Number(s): [id number] cc: Arsh Torres MD EXAMINATION: MR LUMBAR SPINE WITHOUT CONTRAST CLINICAL INFORMATION: Acute on chronic low back pain COMPARISON: None available. TECHNIQUE: MRI of the lumbar spine was obtained using routine sequences without contrast. FINDINGS: Last rib-bearing vertebra labeled T12. Paramagnetic field distortion secondary to metallic hardware L4-5 and L5-S1 levels. Bone marrow STIR signal in the inferior endplate of T12. Bone marrow inhomogeneity the axial skeleton and the included bony pelvis. Multilevel small marginal osteophyte formation and disc desiccation from T12-L1 to L3-4. Normal alignment. Arthrodesis, L4-5 and L5-S1. Conus medullaris ends at pedicle of L1 with normal signal. T11-12: No disc herniation. No neuroforamina stenosis. T12-L1: Facet joint hypertrophy. No disc herniation. No neuroforamina stenosis. L1-2: No disc herniation. Bilateral facet joint hypertrophy. No compression upon neural elements. L2-3: No disc herniation. Facet joint hypertrophy. Bilateral neuroforamina narrowing. Reduced AP diameter of the thecal sac. L3-4: Broad-based disc bulging. Facet joint and ligamentum flavum hypertrophy. Reduced AP diameter of the thecal sac. Bilateral neuroforamina narrowing encroaching the neural elements both thecal sac and exiting nerve roots. L4-5: Right hemilaminectomy. No central spinal canal stenosis. Facet joint hypertrophy. Bilateral neuroforamina narrowing likely encroaching the exiting nerve roots. L5-S1: No central spinal canal or neuroforamina stenosis. Asymmetric volume loss left psoas muscle. No prevertebral compartment hematoma, mass or fluid collection. There is no grouping or clumping of the neural elements of the filum terminalis/thecal sac. MR/MR lumbar spine wo con IMPRESSION: Multilevel lumbar spondylosis pronounced at L3-4 resulting in central spinal canal and bilateral neuroforamina stenosis encroaching the neural elements. Bilateral neuroforamina narrowing at L4-5 on a degenerative basis. Electronically signed by: Epi Sandoval MD 12/26/2024 07:13 AM EDT RP Dictated By: Epi Bernard MD Signed By: <Electronically signed by Epi Jones MD in [place]> 12/26/24 0713 DD/ 29 TD/TT: 12/25/241999 Parts Cleaner: Procedure Note Donotuseinterpreter, Image - 12/26/2024 [place] [address] Magnetic Resonance Report Signed Patient: Jakob Machado [facility]#: [id number] : 1960Acct:[id number] Age/Sex: 64 / MADM Date: 12/25/24 Loc: HO.MRI Attending Dr: Arsh Torres MD Ordering Physician: Arsh Torres MD Date of Service: 12/25/24 Procedure(s): MR lumbar spine wo con Accession Number(s): [id number] cc: Arsh Torres MD EXAMINATION: MR LUMBAR SPINE WITHOUT CONTRAST CLINICAL INFORMATION: Acute on chronic low back pain COMPARISON: None available. TECHNIQUE: MRI of the lumbar spine was obtained using routine sequences without contrast. FINDINGS: Last rib-bearing vertebra labeled T12. Paramagnetic field distortion secondary to metallic hardware L4-5 and L5-S1 levels. Bone marrow STIR signal in the inferior endplate of T12. Bone marrow inhomogeneity the axial skeleton and the included bony pelvis. Multilevel small marginal osteophyte formation and disc desiccation from T12-L1 to L3-4. Normal alignment. Arthrodesis, L4-5 and L5-S1. Conus medullaris ends at pedicle of L1 with normal signal. T11-12: No disc herniation. No neuroforamina stenosis. T12-L1: Facet joint hypertrophy. No disc herniation. No neuroforamina stenosis. L1-2: No disc herniation. Bilateral facet joint hypertrophy. No compression upon neural elements. L2-3: No disc herniation. Facet joint hypertrophy. Bilateral neuroforamina narrowing. Reduced AP diameter of the thecal sac. L3-4: Broad-based disc bulging. Facet joint and ligamentum flavum hypertrophy. Reduced AP diameter of the thecal sac. Bilateral neuroforamina narrowing encroaching the neural elements both thecal sac and exiting nerve roots. L4-5: Right hemilaminectomy. No central spinal canal stenosis. Facet joint hypertrophy. Bilateral neuroforamina narrowing likely encroaching the exiting nerve roots. L5-S1: No central spinal canal or neuroforamina stenosis. Asymmetric volume loss left psoas muscle. No prevertebral compartment hematoma, mass or fluid collection. There is no grouping or clumping of the neural elements of the filum terminalis/thecal sac. MR/MR lumbar spine wo con IMPRESSION: Multilevel lumbar spondylosis pronounced at L3-4 resulting in central spinal canal and bilateral neuroforamina stenosis encroaching the neural elements. Bilateral neuroforamina narrowing at L4-5 on a degenerative basis. Electronically signed by: Epi Sandoval MD 12/26/2024 07:13 AM EDT Dictated By: Epi Bernard MD Signed By: <Electronically signed by Epi Jones MDin OV> 12/26/24 0713 DD/ 29 TD/TT: 12/25/241999 Parts Cleaner: Arsh Holliday MD IMG MRI PROCEDURES Fi nal Result * (ABNORMAL) POCT HGB A1C (12/18/2024 9:10 AM EDT) Hemoglobin A1C 5.8(A) 4.0 - 5.7 % QC Media Lot # [id number] Lot# Expiration Date [id number] Blood 12/18/2024 9:10 AM EDT Arsh Holliday MD POINT OF CARE TEST EN TER/EDIT ORDERABLES Final Result * POCT Glucose (12/18/2024 9:08 AM EDT) Pathologist [facility] Glucose Blood, POC 81 60 - 200 mg/dL QC Media Lot # [id number] Lot# Expiration Date [id number] Blood Capillary blood specimen / Unknown 12/18/2024 9:08 AM EDT us Arsh Holliday MD POINT OF CARE TEST EN TER/EDIT ORDERABLES Final Result * PSA,Total (12/10/2024 9:17 AM EDT) Pathologist [facility] Prostate Specific Antigen 1.45 <0.05 - 4.0 ng/mL [facility] Comment:PSA methodology: Shahrzad Hogue i ChemiluminescentMicroparticle Immunoassay (CMIA) 12/10/2024 9:17 AM EDT 12/10/2024 9:17 AM EDT Generic External Data Provider LAB BLOOD ORDERAB LES Final Result Performing Organization Address City/State/[facility] Co de Phone Number [facility] [address] [place] [phone] * (ABNORMAL) Basic Metabolic Panel (12/10/2024 9:17 AM EDT) Pathologist [facility] Sodium 141 135 - 145 mmol/L [facility] Potassium 3.8 3.3 - 5.1 mmol/L [facility] Chloride 107 96 - 108 mmol/L [facility] Carbon Dioxide 26 22 - 29 mmol/L [facility] Anion Gap 12 12 - 20 [facility] Urea Nitrogen (BUN) 16 9 - 16 mg/dL [facility] Creatinine, Serum 1.48(H) 0.5 - 1.4 mg/dL [facility] Estimated Glomerular Filt Rate 48 [facility] Comment:Chronic Kidney Disea se: Estimated GFR < 60 mL/min/1.15s7Kyxigc Kidney Disease: Estimated GFR < 15 mL/min/1.73m2 Glucose 126(H) 60 - 115 mg/dL [facility] Calcium 9.7 8.4 - 10.2 mg/dL [facility] 12/10/2024 9:17 AM EDT 12/10/2024 9:17 AM EDT us Generic External Data Provider LAB BLOOD ORDERAB LES Final Result Performing Organization Address City/[facility] Co de Phone Number [facility] [address] [place] [phone] * (ABNORMAL) Urine Protein, Total, Random without Creatinine (12/10/2024 9:12 AM EDT) Protein, Total, Random Urine 31(H) <12 mg/dL [facility] 12/10/2024 9:12 AM EDT 12/10/2024 9:45 AM EDT us Generic External Data Provider LAB URINE ORDERAB LES Final Result Performing Organization Address [facility] Co de Phone Number [facility] [address] [place] [phone] * Creatinine, Random Urine (12/10/2024 9:12 AM EDT) Creatinine, Urine 85.29 mg/dL [facility] 12/10/2024 9:12 AM EDT 12/10/2024 9:45 AM EDT us Generic External Data Provider LAB URINE ORDERAB LES Final Result Performing Organization Address [facility] Co de Phone Number [facility] [address] [place] [phone] * (ABNORMAL) Urinalysis Complete (12/10/2024 9:12 AM EDT) Color Urine Yellow [facility] Appearance Urine Clear [facility] PH 7.5 5.0 - 9.0 [facility] Glucose Urine UA Negative Negative mg/dL [facility] Urine Blood Negative Negative [facility] Specific [place] - Urine 1.010 1.005 - 1.025 [facility] Urine Protein 30 (1+)(A) Neg-Trace mg/dL [facility] Urine Ketones Negative Negative mg/dL [facility] Nitrite Urine Negative Negative [facility] Leukocyte Esterase Urine Negative Negative [facility] RBC Urine 0-2 0 - 2 /HPF [facility] Urine WBC 0-5 0 - 5 /HPF [facility] Urine Squamous Epithelial Cell 0-2 0 - 2 /HPF [facility] Urine Bacteria None Seen None Seen [facility] Hyaline Casts, Urine 0-2 0 - 2 /LPF [facility] 12/10/2024 9:12 AM EDT 12/10/2024 9:45 AM EDT us Generic External Data Provider LAB URINE ORDERAB LES Final Result [facility] [address] [place] [phone] * (ABNORMAL) Lipid Panel, Standard (05/23/2024 8:09 AM EST) Triglycerides 127 <150 mg/dL [facility] Comment:Desirable Triglyceri de: less than 150 mg/dLBorderline High Triglyceride 150-199 mg/dLHigh Triglyceride: 200-499 mg/dLVery High Triglyceride: greater than or equal to 5OO mg/dL Cholesterol 153 <200 mg/dL [facility] Comment:Desirable Cholestero l: less than 200 mg/dLBorderline High Cholesterol: 200-239 mg/dLHigh Cholesterol: greater than 239 mg/dL LDL Cholesterol Calculated 97 <100 mg/dL [facility] Comment:Desirable LDL: less than 100 mg/dLNear Optimal/Above Optimal LDL: 110- 129 mg/dLBorderline High LDL: 130-159 mg/dLHigh LDL: 160-189 mg/dLVery High LDL: greater than or equal to 190 mg/dL HDL Cholesterol 31(L) >40 mg/dL [facility] Comment:Desirable HDL: great er than 40 mg/dL Note: This HDL assay may give artificially low results in patients with liver disease. Blood Venous blood specimen / Unknown 05/23/2024 8:09 AM EST 05/23/2024 8:09 AM EST Arsh Holliday MD LAB BLOOD ORDERABLES Final Result Performing Organization Address [facility] Co de Phone Number [facility] [address] [place] [phone] * Hepatitis C Antibody Reflex (06/17/2022 10:14 AM EST) Hepatitis C Antibody Nonreactive Nonreactive [facility] Comment:Antibodies to HCV no t detected; does not exclude early acuteHCV infection. 06/17/2022 10:1 4 AM EST 06/17/2022 10:14 AM EST [facility] External Provider LAB BLO OD ORDERABLES Final Result Performing Organization Address [facility] Co de Phone Number [facility] [address] [place] [phone] * Hm Colonoscopy (06/11/2020 8:26 AM EST) Colonoscopy Normal Normal Historical Provider HEALTH MAINTENANCE Edited Result - Final from Last 3 Months or Most Recently Relevant to Health Maintenance Insurance [facility] STANDARD MEDICARE DENTAL-[facility] MEDICAID STAND ADULT Care Teams Senior Financial Consultant Relationship Specialty Start Date End Date Arsh Gamez MD [address] [place] [address] PCP - General Internal Medicine 12/18/13
--- OUTSIDE RECORDS SUMMARY | 2025-01-15 09:40 | XMS_ITS | Encounter Summary ---
Author Organization [employer] Address [address] [facility] 7t [place] [address] Care Team Providers Care Vegetable Worker Name Role Phone Arsh Gamez MD Primary Care Provide r Encounter Details Date Type Department Care Team (Late st Contact Info) Description 06/14/2022 Orders Only [facility] [address] [place] [address] Sarah Pineda LPN Social History Tobacco Use [...] AM EST documented as of this encounter Functional Status * Over the past 2 weeks, how often have you been bothered by any of the following problems? Question Answer Date of Assessment Author Patient Health Questionnaire-2 Score 0 06/2022 9:13 AM Brielle Quiñonez [place] * Over the past 2 weeks, how often have you been bothered by any of the following problems? Question Answer Date of Assessment Author Little interest or pleasure in doing things Not at all 06/17/2022 9:13 AM Brielle Quiñonez [place] Feeling down, depressed, or hopeless Not at all 06/17/2022 9:13 AM Brielle Quiñonez [place] Trouble falling or staying asleep, or sleeping too much Not at all 06/17/2022 9:13 AM Kal Quiñonez [place] Feeling tired or having aaron le energy Not at all 06/17/2022 9:13 AM Brielle Quiñonez [place] Poor appetite or overeating Not at all 06/17/2022 9: 13 AM Brielle Quiñonez [place] Feeling bad about yourself - or that you are a failure or have let yourself or your family down Not at all 06/17/2022 9:13 AM Brielle Simms [place] Trouble concentrating on thi ngs, such as reading the newspaper or watching television Not at all 06/17/2022 9:13 AM Brielle Quiñonez MA Thoughts that you would be b andrez off or hurting yourself in some way Not at all 06/17/2022 9:13 AM Brielle Quiñonez MA documented as of this encounter Plan of Treatment Upcoming Encounters Date Type Department Care Team (Late st Contact Info) Description 06/13/2025 8:00 AM EST Office Visit [facility] [address] [place] [address] Mari Bloom documented as of this encounter Procedures Procedure [...] EST documented in this encounter Results * Burley/Lambda Light Chains, Free with Ratio (06/17/2022 10:30 AM EST) Burley Light Chain, Free, Serum 303 176 - 443 mg/dL [facility] Lambda Light Chain, Free, Serum 163 91 - 240 mg/dL [facility] Burley/Lambda Light Chains Free With Ratio, Serum 1.86 1.29 - 2.55 [facility] Comment:This assay provides a measurement [...] myeloma, lymphoproliferative disorders, andamyloidosis.THIS TEST WAS PERFORMED AT:[employer] [id number] [facility] [place] [id number] SINGER MD,PHD,ADRIENNE 06/17/2022 10:3 0 AM EST 06/18/2022 4:58 PM EST us [facility] External Provider LAB BLO OD ORDERABLES Final Result [facility] [address] [place] [address] [phone] * Albumin, Random Urine W/Creatinine (06/17/2022 10:30 AM EST) Creatinine, Urine 123.67 mg/dL [facility] Microalbumin Urine 42.0 mg/L [facility] Microalbum Creatinine Ratio Ur 33.9 ug/mg cr [facility] Comment:Albumin/Creatinine R atio Reference Ranges: Normal: < 30 ug/mg creatinine Microalbuminuria: 30 - 300 ug/mg creatinineClinical Albuminuria: > 300 ug/mg creatinine 06/17/2022 10:3 0 AM EST 06/17/2022 11:33 AM EST us [facility] External Provider LAB URI NE ORDERABLES Final Result [facility] [address] [place] [phone] * Protein Electrophoresis and Total Protein, Random Urine (06/17/2022 10:15 AM EST) PEU-Random Urine Creatinine 121 20 - 320 mg/dL [facility] PEU-Random Urine Protein 14 5 - 25 mg/dL [facility] PEU-[place]. Prot/Creat Ratio 116 25 - 148 mg/g creat [facility] PEU-Random Urine Albumin 100 % [facility] PEU-Random Urine A1 Globulin 0 % [facility] PEU-Random Urine A2 Globulin 0 % [facility] PEU-Random Urine Beta Globulin 0 % [facility] PEU-Random Ur. Gamma Globulin 0 % [facility] PEU Ran-Abn Protein Band 1 TNP [facility] PEU Ran-Abn Protein Band 2 TNP [facility] PEU Ran-Abn Protein Band 3 [facility] PEU-Random Urine Interpret. SEE NOTE [facility] Comment:Normal PatternTHIS T EST WAS PERFORMED AT:[employer] [address] ([address])[place] [address]URWRFTERRY JASON MD Protein/Creatini ne Ratio 0.116 0.025 - 0.148 [facility] Comment:Result Units: mg/mg creat 06/17/2022 10:1 5 AM EST 06/18/2022 3:03 PM EST [facility] External Provider LAB URI NE ORDERABLES Final Result Performing Organization Address [facility] de Phone Number [facility] [address] [place] [phone] * Immuniofixation, Urine (06/17/2022 10:15 AM EST) [facility] DELVIN Interpretation [facility] Comment:No monoclonal protei ns detected.THIS TEST WAS PERFORMED AT:[employer] [address] ([address] [phone] JASON MD 06/17/2022 10:1 5 AM EST 06/18/2022 3:03 PM EST [facility] External Provider LAB URI NE ORDERABLES Final Result Performing Organization Address [facility] Number [facility] [address] [place] [phone] * Hepatitis C Viral RNA, Quantitative, Real-Time PC (06/17/2022 10:14 AM EST) [facility] Hepatitis C Viral Load <15 NOT DETECTED NOT DETECTED IU/mL [facility] HCV Log PCR <1.18 NOT DETECTED NOT DETECTED Log IU/mL [facility] Comment:This test was perfor med using Real-Time Polymerase ChainReaction.Reportable Range: 15 IU/mL to 100,000,000 IU/mL(1.18 Log IU/mL to 8.00 Log IU/mL).The analytical performance characteristics of thisassay have been determined by [employer].The modifications have not been cleared or approved bythe FDA. This assay has been validated pursuant to theCLIA regulations and is used for clinical purposes.For more information on this test, go to:http://education.Fio/faq/KMK05n3(This link is being provided for informational/educational purposes only.)THIS TEST WAS PERFORMED AT:[employer] [place] [address] (1)[place] [address]CISXRTERRY JASON MD 06/17/2022 10:1 4 AM EST 06/17/2022 10:14 AM EST [facility] External Provider LAB BLO OD ORDERABLES Final Result [facility] [address] [place] [phone] * Protein Electrophoresis and Burley/Lambda Light Chains (06/17/2022 10:14 AM EST) Prot Elec - Total Protein 7.2 6.1 - 8.1 g/dL [facility] Prot Elec - Albumin 4.2 3.8 - 4.8 g/dL [facility] Prot Elec - Alpha1 0.3 0.2 - 0.3 g/dL [facility] Prot Elec - Alpha2 0.6 0.5 - 0.9 g/dL [facility] Prot Elec - Beta 1 0.5 0.4 - 0.6 g/dL [facility] Prot Elec - Beta 2 0.4 0.2 - 0.5 g/dL [facility] Prot Elec - Gamma 1.2 0.8 - 1.7 g/dL [facility] PES - Abn Protein Band 1 TNP [facility] PES-Abn Protein Band 2 [facility] PES-Abn Protein Band 3 [facility] Prot Elec - Interpretation SEE NOTE [facility] Comment:Normal Electrophoret ic PatternTHIS TEST WAS PERFORMED AT:[employer] [place] [address] (NL1)[place] [address]WACKBTERRY JASON MD 06/17/2022 10:1 4 AM EST 06/17/2022 10:14 AM EST [facility] External Provider LAB BLO OD ORDERABLES Final Result Performing Organization Address [facility] Phone Number [facility] [address] [place] [phone] * (ABNORMAL) Immunofixation, Serum (06/17/2022 10:14 AM EST) [facility] IMMUNOGLOBULIN G 1189 600 - 1540 mg/dL [facility] IMMUNOGLOBULIN A 355(A) 70 - 320 mg/dL [facility] Immunoglobulin M 145 50 - 300 mg/dL [facility] Comment:THIS TEST WAS PERFOR MED AT:[employer] [place] [address] (1)[place] [address]ZHMPZTERRY JASON MD Immunofixation Result SEE NOTE [facility] Comment:Normal pattern. No m onoclonal proteins detected. 06/17/2022 10:1 4 AM EST 06/18/2022 2:59 PM EST [facility] External Provider LAB BLO OD ORDERABLES Final Result Performing Organization Address [facility] Number [facility] [address] [place] [phone] * Hepatitis C Antibody Reflex (06/17/2022 10:14 AM EST) [facility] Hepatitis C Antibody Nonreactive Nonreactive [facility] Comment:Antibodies to HCV no t detected; does not exclude early acuteHCV infection. 06/17/2022 10:1 4 AM EST 06/17/2022 10:14 AM EST [facility] External Provider LAB BLO OD ORDERABLES Final Result Performing Organization Address [facility] Co de Phone Number [facility] [address] [place] [phone] * Lipid Panel with Reflex to Direct LDL (06/17/2022 10:14 AM EST) Triglycerides 154 mg/dL [facility] Comment:Desirable Triglyceri de: less than 150 mg/dLBorderline High Triglyceride 150-199 mg/dLHigh Triglyceride: 200-499 mg/dLVery High Triglyceride: greater than or equal to 5OO mg/dL Cholesterol 176 mg/dL [facility] Comment:Desirable Cholestero l: less than 200 mg/dLBorderline High Cholesterol: 200-239 mg/dLHigh Cholesterol: greater than 239 mg/dL LDL Cholesterol Calculated 119 mg/dl [facility] Comment:Desirable LDL: less than 100 mg/dLNear Optimal/Above Optimal LDL: 110- 129 mg/dLBorderline High LDL: 130-159 mg/dLHigh LDL: 160-189 mg/dLVery High LDL: greater than or equal to 190 mg/dL HDL Cholesterol 27 mg/dL [facility] Comment:Desirable HDL: great er than 40 mg/dL Note: This HDL assay may give artificially low results in patients with liver disease. 06/17/2022 10:1 4 AM EST 06/17/2022 10:14 AM EST us [facility] External Provider LAB BLO OD ORDERABLES Final Result [facility] [address] [place], [place] [phone] * (ABNORMAL) Basic Metabolic Panel (06/17/2022 10:14 AM EST) Sodium 139 135 - 145 mmol/L [facility] Potassium 4.1 3.3 - 5.1 mmol/L [facility] Chloride 107 96 - 108 mmol/L [facility] Carbon Dioxide 25 22 - 29 mmol/L [facility] Anion Gap 11(L) 12 - 20 [facility] Urea Nitrogen (BUN) 19(H) 9 - 16 mg/dL [facility] Creatinine, Serum 1.20 0.5 - 1.4 mg/dL [facility] Estimated Glomerular Filt Rate >60 [facility] Comment:NOTE: For -Am erican individuals, multiply the result by 1.210.Chronic Kidney Disease: Estimated GFR < 60 mL/min/1.69q9Xrdfgr Kidney Disease: Estimated GFR < 15 mL/min/1.73m2 Glucose 93 60 - 115 mg/dL [facility] Calcium 9.2 8.4 - 10.2 mg/dL [facility] 06/17/2022 10:1 4 AM EST 06/17/2022 10:14 AM EST us [facility] External Provider LAB BLO OD ORDERABLES Final Result [facility] [address] [place] [phone] * CBC (06/17/2022 10:14 AM EST) White Blood Count 5.9 4.8 - 10.8 X10*3/uL [facility] Red Blood Count 5.41 4.60 - 5.80 X10*6/uL [facility] Hemoglobin 15.7 14.0 - 18.0 g/dl [facility] Hematocrit 45.5 42.0 - 52.0 % [facility] Mean Corpuscular Volume 84.1 80.0 - 98.0 fL [facility] Mean Corpuscular Hemoglobin 29.0 27.0 - 33.0 pg [facility] Mean Corpuscular HGB Conc 34.5 31.0 - 36.0 g/dl [facility] Red Cell Distribution Width 13.7 11.0 - 16.0 % [facility] Platelet Count 209 160 - 400 X10*3/uL [facility] Mean Platelet Volume 9.9 9.4 - 12.4 fL [facility] NRBC Pct Auto 0.0 0.0 - 0.2 /100WBC [facility] NRBC Abs Auto 0.000 0.0 - 0.012 X10*3/uL [facility] 06/17/2022 10:1 4 AM EST 06/17/2022 10:14 AM EST us [facility] External Provider LAB BLO OD ORDERABLES Final Result [facility] [address] [place] [phone] documented in this encounter Visit Diagnoses Not on filedocumented in this encounter Care Teams Vegetable Worker Relationship Specialty Start Date End Date Arsh Gamez MD [address] [place] [phone] PCP - General Internal Medicine 12/18/13 documented as of this encounter
--- OUTSIDE RECORDS SUMMARY | 2025-01-15 09:40 | XMS_ITS | Encounter Summary ---
Author Organization [employer] Address [address] [facility] 7[address] [place] [address] Care Team Providers Care Pharmacist'S Aide Name Role Phone Arsh Gmaez MD Primary Care Provide r Reason for Visit * Reason Onset Date Comments Med Refill 10/09/2024 Encounter Details Date Type Department Care Team ([facility] st Contact Info) Description 10/09/2024 Telephone [facility] [address] [place], [place] [phone] Arsh Gamez MD [address] [place], [place] [phone] Med Refill Social History Tobacco Use Types Packs/Day Years [...] Miscellaneous Notes * Telephone Encounter - Sarah Pineda LPN - 10/09/2024 1:55 PM EDT Medication was discontinued. * Telephone Encounter - Merly Puentes - 10/09/2024 1:49 PM EDT TC from pt requesting medication refill. Medications needing refill : meloxicam (Mobic) 15 MG tablet To be sent to: [facility]/pharmacy #[id number] [place], [place] - [address] [place] [address] AT NEXT TO [facility] documented in this encounter Plan of Treatment Upcoming Encounters Date Type Department Care Team (Late st Contact Info) Description 06/13/2025 8:00 AM EST Office Visit [facility] [address] [place] [address] Mari Bloom documented as of this encounter Visit Diagnoses Not on filedocumented in this encounter Additional Health Concerns Assessment Noted Time PHQ-9 Depression Total Score: 0 09/29/19 24 9:32 AM EDT documented as of this encounter Care Teams Pharmacist'S Aide Relationship Specialty Start Date End Date Sharif Mg, Arsh, MD [address] [place] [address] PCP - General Internal Medicine 12/18/13 documented as of this encounter
--- OUTSIDE RECORDS SUMMARY | 2025-01-15 09:40 | XMS_ITS | Encounter Summary ---
Author Organization [employer] [facility] Address [address] [facility] 7t [place] [address] Care Team Providers Care Organisational Psychologist Name Role Phone Arsh Gamez MD Primary Care Provide r Encounter Details Date Type Department Care Team (Late st Contact Info) Description 07/16/2022 Abstract [facility] [address] [place] [address] Power Davis DMD [address] [place] [address] Social History Tobacco Use Types Packs/Day Years [...] Description 06/13/2025 8:00 AM EST Office Visit [facility] [address] [place] [address] Mari Bloom documented as of this encounter Visit Diagnoses Not on filedocumented in this encounter Care Teams Organisational Psychologist Relationship Specialty Start Date End Date Arsh Gamez MD [address] [place] [address] PCP - General Internal Medicine 12/18/13 documented as of this encounter
--- OUTSIDE RECORDS SUMMARY | 2025-01-15 09:40 | XMS_ITS | Encounter Summary ---
Author Organization [employer] Address [address] [place] [address] Care Team Providers Care Electrical Tester Name Role Phone Arsh Gamez MD Primary Care Provide r Reason for Visit * Reason Comments Med Refill Encounter Details Date Type Department Care Team ([facility] st Contact Info) Description 12/28/2023 Refill [facility] [address] [place], [place] [phone] Felicita Beasley, ANP [address] [place] [address] Benign prostatic hyperplasia with urinary frequency Social [...] Description 06/13/2025 8:00 AM EST Office Visit [facility] [address] [place] [address] Mari Bloom documented as of this encounter Visit Diagnoses Diagnosis Benign prostatic hyperplasia with urinary frequency documented in this encounter Additional Health Concerns Assessment Noted Time PHQ-9 Depression Total Score: 0 09/29/19 24 9:32 AM EDT documented as of this encounter Care Teams Electrical Tester Relationship Specialty Start Date End Date Arsh Gamez MD [address] [place] [address] PCP - General Internal Medicine 12/18/13 documented as of this encounter
--- OUTSIDE RECORDS SUMMARY | 2025-01-15 09:40 | XMS_ITS | Encounter Summary ---
Author Organization [facility] Address [address] [place] [address] Phone Care Team Providers Care Tattoo Technician Name Role Phone Arsh Torres MD Primary Care Provide r Encounter Details Date Type Department Care Team (Late st Contact Info) Description 06/14/2022 Transcribe Orders Virtual Department [address] [place] [address] Sarah Mojica PA-C [address] [place] [phone] [email or web address] Cyst of kidney, acquired (Primary Dx); Personal history of urinary calculi Social History Tobacco Use Types Packs/Day Years [...] of this encounter Results * US Kidneys (06/25/2022 7:52 AM EST) Anatomical Region Laterality Modality Abdomen, Kidney Ultrasound 06/25/2022 6:07 PM EST Impressions 06/25/2022 6:10 PM EST 1. Scattered small bilateral simple cysts. 2. No suspicious mass, calculi or hydronephrosis identified affecting either kidney. Narrative 06/25/2022 6:10 PM EST US KIDNEYS History: Follow-up renal cysts. TECHNIQUE: Kidney Ultrasound. COMPARISON: Renal ultrasound 06/03/2020 and 04/23/2019. MRI abdomen 09/14/[address] abdomen 08/05/2018. FINDINGS: Right Kidney: Size: 4.9 x 10.3 cm Scattered small renal cysts appearing anechoic and smoothly marginated within the mid kidney measuring 5 x 5 x 6 mm and 7 x 8 x 10 mm. No solid, suspicious mass. No discernible calculi or hydronephrosis. Left Kidney: Size: 5.3 x 9.4 cm Multiple small simple cysts defined within the lower pole measuring 6 x 7 x 10 mm, 5 x 6 x 7 mm and 4 x 4 x 6 mm. No solid, suspicious mass, calculi or hydronephrosis. Bladder: Incompletely distended. No gross focal abnormality. Ureteral jets not imaged. Procedure Note Sebastián Nelson MD - 06/25/2022 US KIDNEYS History: Follow-up renal cysts. TECHNIQUE: Kidney Ultrasound. COMPARISON: Renal ultrasound 06/03/2020 and 04/23/2019. MRI abdomen 09/14/2018and CT abdomen 08/05/2018. FINDINGS: Right Kidney: Size: 4.9 x 10.3 cm Scattered small renal cysts appearing anechoic and smoothly marginatedwithin the mid kidney measuring 5 x 5 x 6 mm and 7 x 8 x 10 mm. No solid,suspicious mass. No discernible calculi or hydronephrosis. Left Kidney: Size: 5.3 x 9.4 cm Multiple small simple cysts defined within the lower pole measuring 6 x 7x 10 mm, 5 x 6 x 7 mm and 4 x 4 x 6 mm. No solid, suspicious mass, calculior hydronephrosis. Bladder: Incompletely distended. No gross focal abnormality. Ureteral jetsnot imaged. IMPRESSION: 1. Scattered small bilateral simple cysts. 2. No suspicious mass, calculi or hydronephrosis identified affectingeither kidney. Sarah Mojica PA-C [facility] Final R esult documented in this encounter Visit Diagnoses Diagnosis Cyst of kidney, acquired- Primary Acquired cyst of kidney Personal history of urinary calculi Cyst of kidney, acquired Acquired cyst of kidney Personal history of urinary calculi documented in this encounter Care Teams Tattoo Technician Relationship Specialty Start Date End Date Arsh Torres MD [address] [place] [address] [address] [place] [address] PCP - General 03/03/17 documented as of this encounter Additional Source Comments The information contained in this document represents components of the legal health record. It is not the complete legal health record.[facility]
--- OUTSIDE RECORDS SUMMARY | 2025-01-15 09:40 | XMS_ITS | Encounter Summary ---
Author Organization [employer] Address [address] [facility] [address] 7t [place] [address] Care Team Providers Care Client Technologies Analyst Name Role Phone Arsh Gamez MD Primary Care Provide r Reason for Visit * Reason Comments Med Refill Encounter Details Date Type Department Care Team ([facility] st Contact Info) Description 06/24/2023 Refill [facility] [address] [place], [place] [phone] Arsh Gamez MD [address] [place] [address] Pain Social History Tobacco Use Types Packs/Day [...] Description 06/13/2025 8:00 AM EST Office Visit [facility] ADULT DENTAL [address] [place] [address] Mari Bloom documented as of this encounter Visit Diagnoses Diagnosis Pain Generalized pain documented in this encounter Care Teams Client Technologies Analyst Relationship Specialty Start Date End Date Arsh Gamez MD [address] [place] [address] PCP - General Internal Medicine 12/18/13 documented as of this encounter
--- OUTSIDE RECORDS SUMMARY | 2025-01-15 09:40 | XMS_ITS | Encounter Summary ---
Author Organization [employer] Address [address] [facility] 7t [place] [address] Care Team Providers Care Distribution Associate Name Role Phone Arsh Gamez MD Primary Care Provide r Reason for Visit * Reason Onset Date Comments Appointment Request 12/30/2023 Encounter Details Date Type Department Care Team ([facility] st Contact Info) Description 12/30/2023 Telephone [facility] MEDICINE [address] [place], [place] [phone] Arsh Gamez MD [address] [place], [place] [phone] Appointment Request Social History Tobacco Use Types [...] Description 06/13/2025 8:00 AM EST Office Visit [facility] ADULT DENTAL [address] [place] [address] Mari Bloom documented as of this encounter Visit Diagnoses Not on filedocumented in this encounter Additional Health Concerns Assessment Noted Time PHQ-9 Depression Total Score: 0 09/29/19 24 9:32 AM EDT documented as of this encounter Care Teams Distribution Associate Relationship Specialty Start Date End Date Arsh Gamez MD [address] [place] [address] PCP - General Internal Medicine 12/18/13 documented as of this encounter
--- OUTSIDE RECORDS SUMMARY | 2025-01-15 09:40 | XMS_ITS | Encounter Summary ---
Author Organization [employer] [facility] Address [address] [place] [address] Phone Care Team Providers Care Media Reporter Name Role Phone Arsh Torres MD Primary Care Provide r Encounter Details Date Type Department Care Team (Latest Contact Info) Description 05/12/2017 Transcribe Orders [facility] [address] [place] [address] Dr Lee BETTY [address] Dorian Laughlin MD [address] [place] [address] [phone] [email or web address] Hypertension, unspecified type (Primary Dx); Mass of joint of right knee Social History Tobacco Use Types Packs/Day Years [...] documented as of this encounter Results * (ABNORMAL) CBC and differential (05/12/2017 9:37 AM EST) WBC 8.29 3.40 - 11.20 K/uL [facility] RBC 5.79(H) 4.50 - 5.50 M/uL [facility] HGB 17.5(H) 13.0 - 17.0 g/dL [facility] HCT 48.5 40.0 - 51.0 % [facility] PLT 221 130 - 400 K/uL [facility] MCV 83.8 79.0 - 98.0 fL [facility] MCH 30.2 27.0 - 34.8 pg [facility] MCHC 36.1(H) 31.5 - 36.0 g/dL [facility] RDW 12.5 10.8 - 14.6 % [facility] MPV 9.7 9.4 - 12.4 fl [facility] NRBC 0.00 /100 WBCs [facility] ABSOLUTE NRBC 0.00 K/uL [facility] DIFF METHOD Auto [facility] NEUTS 58.7 45.30 - 77.70 % [facility] LYMPHS 27.6 12.30 - 39.70 % [facility] MONOS 9.5 4.10 - 12.80 % [facility] EOS 3.1 0 - 7.2 % [facility] BASOS 0.6 0 - 2.80 % [facility] Granulocytes, immature (%) 0.5 0.0 - 0.9 % [facility] ABSOLUTE NEUTS 4.86 1.40 - 7.70 K/uL [facility] ABSOLUTE LYMPHS 2.29 0.60 - 3.20 K/uL [facility] ABSOLUTE MONOS 0.79(H) 0.11 - 0.59 K/uL [facility] ABSOLUTE EOS 0.26 0.01 - 0.50 K/uL [facility] ABSOLUTE BASOS 0.05 0.00 - 0.08 K/uL [facility] Granulocytes, immature 0.04 0.00 - 0.05 K/uL [facility] Blood 05/12/2017 9:37 AM EST 05/12/2017 9:39 AM EST us Dorian Laughlin MD LAB BLOOD ORDERABLES Danni boucher Result [address] [address] documented in this encounter Visit Diagnoses Diagnosis Hypertension, unspecified type- Primary Mass of joint of right knee documented in this encounter Care Teams Media Reporter Relationship Specialty Start Date End Date Arsh Torres MD [address] [place] [address] [address] [place] [phone] [email or web address] PCP - General 03/03/17 documented as of this encounter Additional Source Comments The information contained in this document represents components of the legal health record. It is not the complete legal health record.[facility]
--- OUTSIDE RECORDS SUMMARY | 2025-01-15 09:40 | XMS_ITS | Encounter Summary ---
Author Organization [facility] Address [address] [place] [address] Phone Care Team Providers Care Business Database Analyst Name Role Phone Arsh Torres MD Primary Care Provide r Encounter Details Date Type Department Care Team (Late st Contact Info) Description 05/24/2017 Procedure Pass OR Admitting Dept - Virtual Department [address] [place] [address] Social History Tobacco Use Types Packs/Day Years [...] on filedocumented in this encounter Care Teams Business Database Analyst Relationship Specialty Start Date End Date Arsh Torres MD [address] [facility] [address] [place] [phone] PCP - General 03/03/17 documented as of this encounter Additional Source Comments The information contained in this document represents components of the legal health record. It is not the complete legal health record.[facility]
--- OUTSIDE RECORDS SUMMARY | 2025-01-15 09:40 | XMS_ITS | Encounter Summary ---
Author Organization [employer] Address [address] [facility] 7t [place] [address] Care Team Providers Care Gas Engine Operator Name Role Phone Arsh Gamez MD Primary Care Provide r Reason for Visit * Reason Onset Date Comments Referral 01/10/2025 Encounter Details Date Type Department Care Team ([facility] st Contact Info) Description 01/10/2025 Telephone [facility] MEDICINE [address] [place], [place] [phone] Arsh Gamez MD 230 [place], [place] [phone] Referral Social History Tobacco Use Types Packs/Day Years [...] housing situation today? I have timothy sing 12/18/[address] you li [...] encounter Miscellaneous Notes * Telephone Encounter - Maritza Stewart RN - 01/11/2025 11:45 AM EDT Telephone call returned to patient in regards to below message. Patient requesting GI referral. Patient is having stomach pain and pain when he sits where he has to keep changing positions for the last few months. Patient verbalized understanding and denied having any further questions or concerns at this time. Patient to follow up as needed. * Telephone Encounter - Leonardo Costa - 01/10/2025 3:25 PM EDT Tc from pt requesting a referral for gastroenterology. [facility] Phone number [phone] documented in this encounter Plan of Treatment Upcoming Encounters Date Type Department Care Team (Late st Contact Info) Description 06/13/2025 8:00 AM EST Office Visit [facility] ADULT DENTAL [address] [place] [address] Mari Bloom documented as of this encounter Visit Diagnoses Not on filedocumented in this encounter Additional Health Concerns Assessment Noted Time PHQ-9 Depression Total Score: 0 12/19/19 25 8:55 AM EDT documented as of this encounter Care Teams Gas Engine Operator Relationship Specialty Start Date End Date Arsh Gamez MD [address] [place] [address] PCP - General Internal Medicine 12/18/13 documented as of this encounter
--- OUTSIDE RECORDS SUMMARY | 2025-01-15 09:40 | XMS_ITS | Encounter Summary ---
Author Organization [employer] [facility] Address 75 [facility] 7t [place] [address] Care Team Providers Care Gluer Machine Setup Operator Name Role Phone Arsh Gamez MD [...] 8:00 AM EST Office Visit [facility] ADULT DENTAL [address] [place] [address] Mari Bloom documented as of this encounter Visit Diagnoses Not on filedocumented in this encounter Care Teams Gluer Machine Setup Operator Relationship Specialty Start Date End Date Arsh Gamez MD 230 [place], [place] [phone] PCP - General Internal Medicine 12/18/13 documented as of this encounter
--- OUTSIDE RECORDS SUMMARY | 2025-01-15 09:40 | XMS_ITS | Encounter Summary ---
Author Organization [facility] Address [address] [place] [address] Phone Care Team Providers Care Balloon Design Printer Name Role Phone Arsh Torres MD Primary Care Provide r Encounter Details Date Type Department Care Team (Late st Contact Info) Description 03/01/2019 Ancillary Orders [facility], X-Ray - [address] [address] Arsh Torres MD [address] [place] [address] [email or web address] Social History Tobacco Use Types Packs/Day Years [...] on filedocumented in this encounter Care Teams Balloon Design Printer Relationship Specialty Start Date End Date Arsh Torres MD [address] [place] [address] [email or web address] PCP - General 03/03/17 documented as of this encounter Additional Source Comments The information contained in this document represents components of the legal health record. It is not the complete legal health record.[facility]
--- OUTSIDE RECORDS SUMMARY | 2025-01-15 09:40 | XMS_ITS | Encounter Summary ---
Author Organization [employer] Address [address] [facility] 7t [place] [address] Care Team Providers Care Lawn Sprinkler Installer Name Role Phone Arsh Gamez MD Primary Care Provide r Reason for Visit * Reason Onset Date Comments Med Change Request Prior Authorization 03/10/2023 SUMAtriptan (Imitrex) 50 MG tablet Encounter Details Date Type Department Care Team ([facility] st Contact Info) Description 03/10/2023 Refill [facility] MEDICINE [address] [place], [place] [phone] Arsh Gamez MD [address] [place], [place] [phone] Social History Tobacco Use Types Packs/Day Years [...] Description 06/13/2025 8:00 AM EST Office Visit [facility] ADULT DENTAL [address] [place] [address] Mari Bloom documented as of this encounter Visit Diagnoses Not on filedocumented in this encounter Care Teams Lawn Sprinkler Installer Relationship Specialty Start Date End Date rAsh Gamez MD [address] [place] [address] PCP - General Internal Medicine 12/18/13 documented as of this encounter
--- OUTSIDE RECORDS SUMMARY | 2025-01-15 09:40 | XMS_ITS | Encounter Summary ---
Author Organization [employer] Address 75 [facility] 7t [place] [address] Care Team Providers Care Foot Setter Name Role Phone Arsh Gamez MD Primary Care Provide r Reason for Visit * Reason Comments Med Refill Encounter Details Date Type Department Care Team ([facility] st Contact Info) Description 06/20/2023 Refill [facility] MEDICINE [address] [place], [place] [phone] Arsh Gamez MD [address] [place], [place] [phone] Pain Social History Tobacco Use Types Packs/Day [...] Description 06/13/2025 8:00 AM EST Office Visit [facility] ADULT DENTAL [address] [place] [address] Mari Bloom documented as of this encounter Visit Diagnoses Diagnosis Pain Generalized pain documented in this encounter Care Teams Foot Setter Relationship Specialty Start Date End Date Arsh Gamez MD [address] [place] [address] PCP - General Internal Medicine 12/18/13 documented as of this encounter
--- OUTSIDE RECORDS SUMMARY | 2025-01-15 09:40 | XMS_ITS | Encounter Summary ---
Author Organization [employer] [facility] Address [address] [facility] 7t [place] [address] Care Team Providers Care Maltster Name Role Phone Arsh Gamez MD Primary Care Provide r Encounter Details Date Type Department Care Team (Latest Contact Info) Description 07/09/2019 Abstract [facility] CONVERSIONS Dental, Provider, DDS Social [...] Description 06/13/2025 8:00 AM EST Office Visit [facility] ADULT DENTAL [address] [place] [address] Mari Bloom documented as of this encounter Visit Diagnoses Not on filedocumented in this encounter Care Teams Maltster Relationship Specialty Start Date End Date Arsh Gamez MD 230 [place], [place] [phone] PCP - General Internal Medicine 12/18/13 documented as of this encounter
--- OUTSIDE RECORDS SUMMARY | 2025-01-15 09:40 | XMS_ITS | Encounter Summary ---
Author Organization [employer] [facility] Address [address] [facility] 7t [place] [address] Care Team Providers Care Optical Glass Etcher Name Role Phone Arsh Gamez MD Primary Care Provide r Encounter Details Date Type Department Care Team (Late st Contact Info) Description 09/23/2022 Abstract [facility] MEDICINE [address] [place], [place] [phone] Arsh Gamez MD [address] [place], [place] [phone] Social History Tobacco Use Types Packs/Day Years [...] Description 06/13/2025 8:00 AM EST Office Visit [facility] ADULT DENTAL [address] [place], [place] [phone] Mari Bloom documented as of this encounter Visit Diagnoses Not on filedocumented in this encounter Care Teams Optical Glass Etcher Relationship Specialty Start Date End Date Arsh Gamez MD [address] [place] [address] PCP - General Internal Medicine 12/18/13 documented as of this encounter
--- OUTSIDE RECORDS SUMMARY | 2025-01-15 09:40 | XMS_ITS | Encounter Summary ---
Author Organization [facility] Address [address] [place] [address] Phone Care Team Providers Care Ext Js Developer Name Role Phone Arsh Sharif MD Primary Care Provider Encounter Details Date Type Department Care Team (Late st Contact Info) Description 06/29/2022 Telephone [facility] [address] [place] [address] Sarah Phelps Social History Tobacco [...] replacement. PT says that the hospital performing [facility] needs the clearance two months before his surgery date in September. Surgery is for his right knee. documented in this encounter Plan of Treatment Not on file documented as of this encounter Visit Diagnoses Not on filedocumented in this encounter Care Teams Ext Js Developer Relationship Specialty Start Date End Date Arsh Sharif MD [address] [place] [address] PCP - General Internal Medicine 08/24/21 documented as of this encounter
--- OUTSIDE RECORDS SUMMARY | 2025-01-15 09:40 | XMS_ITS | Encounter Summary ---
Author Organization [facility] Address [address] [place] [address] Phone Care Team Providers Care Hot Repairman Name Role Phone Arsh Torres MD Primary Care Provide r Encounter Details Date Type Department Care Team (Late st Contact Info) Description 09/28/2022 Procedure Pass [place] Admitting Dept - Virtual Department [address] [place] [address] Social History Tobacco Use Types Packs/Day Years Used Date Smoking Tobacco: Never Smokeless Tobacco: Never Alcohol Use Standard Drinks/Week Comments Never 0 (1 standard drink = 0.6 oz pur e alcohol) Education Answer Date Recorded Are you interested in more education? Not on rodriguez e 09/09/2022 Are you concerned about learning? Not on file 09/09/2022 No 09/09/2022 No 09/09/2022 Sex and Gender Information Value Date Recorded Sex Assigned at Male 12/23/2018 10:25 AM EDT Legal Sex Male 9:48 PM EDT Gender Identity Male 12/23/2018 10:25 AM EDT Sexual Orientation Straight 12/23/2018 10 :25 AM EDT documented as of this encounter Plan of Treatment Not on file documented as of this encounter Visit Diagnoses Not on filedocumented in this encounter Care Teams Hot Repairman Relationship Specialty Start Date End Date Arsh Torres MD [address] [place] [address] [address] [place] [phone] [email or web address] PCP - General 03/03/17 documented as of this encounter Additional Source Comments The information contained in this document represents components of the legal health record. It is not the complete legal health record.[facility]
--- OUTSIDE RECORDS SUMMARY | 2025-01-15 09:40 | XMS_ITS | Encounter Summary ---
Author Organization [employer] [facility] Address [address] [facility] 7t [place] [address] Care Team Providers Care Sales Driver Name Role Phone Arsh Gamez MD Primary Care Provide r Reason for Visit * Reason Onset Date Comments Pre Op 07/19/2022 Appointment Request 07/22/2022 r/s Pre Op Encounter Details Date Type Department Care Team ([facility] st Contact Info) Description 07/19/2022 Telephone [facility] MEDICINE [address] [place] [address] Arsh Gamez MD [address] [place], [place] [phone] Pre Op; Appointment Request (r/s Pre Op [...] encounter Miscellaneous Notes * Telephone Encounter - Fabianoraleigh Ruizjannie العراقي - 07/28/2022 11:42 AM EDT Tc from from pt returning phone call regarding messages below. Pt states to please call before 11 am every day. Please contact pt at [phone] * Telephone Encounter - Autumn Ramirez RN [...] 10 am due to him working in [place] for 11am. * Telephone Encounter - Cami Martin RN - 07/19/2022 1:53 PM EST Call to [facility] to inform them of pt's appt. No answer. Left VM with appt details and asked for them to call pt with appointment * Telephone Encounter - Cami Martin RN - 07/19/2022 12:31 PM EST Call from Torrie at [facility]. Pt does not needs labs but does [...] requesting a Pre Op appt Location : [address] [place] [address] Procedure : Knee Transplant Labs: does not know EKG: does not know Anesthesia: Does not know Surgeon: does not know documented in this encounter Plan of Treatment Upcoming Encounters Date Type Department Care Team (Late st Contact Info) Description 06/13/2025 8:00 AM EST Office Visit [facility] ADULT DENTAL [address] [place] [address] Mari Bloom documented as of this encounter Visit Diagnoses Not on filedocumented in this encounter Care Teams Sales Driver Relationship Specialty Start Date End Date Arsh Gamez MD [address] [place] [address] PCP - General Internal Medicine 12/18/13 documented as of this encounter
--- OUTSIDE RECORDS SUMMARY | 2025-01-15 09:40 | XMS_ITS | Encounter Summary ---
Author Organization [facility] Address [address] [place] [address] Phone Care Team Providers Care Butcher Chicken And Fish Name Role Phone Arsh Torres MD Primary Care Provide r Encounter Details Date Type Department Care Team (Late st Contact Info) Description 02/16/2022 Procedure Pass [place] Admitting Dept - Virtual Department [address] [place] [address] Social History Tobacco Use Types Packs/Day Years [...] on filedocumented in this encounter Care Teams Butcher Chicken And Fish Relationship Specialty Start Date End Date Arsh Torres MD 230 [facility] [address] [place] [phone] PCP - General 03/03/17 documented as of this encounter Additional Source Comments The information contained in this document represents components of the legal health record. It is not the complete legal health record.[facility]
--- OUTSIDE RECORDS SUMMARY | 2025-01-15 09:40 | XMS_ITS | Encounter Summary ---
Author Organization [facility] Address [address] [place] [address] Phone Care Team Providers Care Assistant To The Dean Name Role Phone Arsh Torres MD Primary Care Provide r Encounter Details Date Type Department Care Team (Late st Contact Info) Description 04/12/2022 Procedure Pass [facility], [address] [place] [address] Social History Tobacco Use Types Packs/Day Years [...] on filedocumented in this encounter Care Teams Assistant To The Dean Relationship Specialty Start Date End Date Arsh Torres MD 230 [facility] [address] [place] [address] PCP - General 03/03/17 documented as of this encounter Additional Source Comments The information contained in this document represents components of the legal health record. It is not the complete legal health record.[facility]
--- OUTSIDE RECORDS SUMMARY | 2025-01-15 09:40 | XMS_ITS | Encounter Summary ---
Author Organization [employer] Address [address] [facility] 7t [place] [address] Care Team Providers Care Form Presser Name Role Phone Arsh Gamez MD Primary Care Provide r Reason for Visit * Reason Comments Med Refill Encounter Details Date Type Department Care Team ([facility] st Contact Info) Description 03/25/2024 Refill [facility] [address] [place], [place] [phone] Rolando Denton, CAT [address] [place] [address] Social History Tobacco Use Types Packs/Day Years [...] Description 06/13/2025 8:00 AM EST Office Visit [facility] [address] [place] [address] Mari Bloom documented as of this encounter Visit Diagnoses Not on filedocumented in this encounter Additional Health Concerns Assessment Noted Time PHQ-9 Depression Total Score: 0 09/29/19 24 9:32 AM EDT documented as of this encounter Care Teams Form Presser Relationship Specialty Start Date End Date Arsh Gamez MD 230 [place] [address] PCP - General Internal Medicine 12/18/13 documented as of this encounter
--- OUTSIDE RECORDS SUMMARY | 2025-01-15 09:40 | XMS_ITS | Encounter Summary ---
Author Organization [employer] Address 75 [facility] 7t [place] [address] Care Team Providers Care Applied Exercise Physiologist Name Role Phone Arsh Gamez MD Primary Care Provide r Reason for Visit * Reason Comments Med Refill Encounter Details Date Type Department Care Team ([facility] st Contact Info) Description 09/30/[address] [facility] MEDICINE [address] [place], [place] [phone] Arsh Gamez MD [address] [place], [place] [phone] Social History Tobacco Use Types Packs/Day Years [...] Description 06/13/2025 8:00 AM EST Office Visit [facility] ADULT DENTAL [address] [place] [address] Mari Bloom documented as of this encounter Visit Diagnoses Not on filedocumented in this encounter Additional Health Concerns Assessment Noted Time PHQ-9 Depression Total Score: 0 09/29/19 24 9:32 AM EDT documented as of this encounter Care Teams Applied Exercise Physiologist Relationship Specialty Start Date End Date Arsh Gamez MD [address] [place] [address] PCP - General Internal Medicine 12/18/13 documented as of this encounter
[2025-01-15 10:34] LABS: Anion Gap 12 (12-20); Blood Urea Nitrogen 25 mg/dL (9-16); Calcium 8.8 mg/dL (8.4-10.2); Carbon Dioxide 28 mmol/L (22-29); Chloride 106 mmol/L (96-108); Estimated Glomerular Filt Rate 48; Potassium 4.1 mmol/L (3.3-5.1); Sodium 142 mmol/L (135-145)
[2025-01-15 10:55] LABS: Appearance Urine Turbid; Glucose Urine UA Negative (Negative); PH 8.0 (5.0-9.0); Specific Gravity - Urine 1.020 (1.005-1.025); UMIC TRIGGER UA YES
== END 2025-01-15 08:53 | disposition home or self-care (01) ==
LOC: HO.LAB 08:52
PROVIDERS: Visit Provider Internal Medicine Hypertension Specialist
DX: N17.9 Acute kidney failure, unspecified (principal)
CPT/HCPCS: 36415; 80048; 81001; 81003

== ENCOUNTER 2025-01-21 09:40 | Outpatient (AMB) | payer MEDICARE, MEDICAID, SELFPAY ==
[2025-01-21 09:52] VITALS: BP 122/78; PULSE 69; O2SAT 97; BMI 24.6
--- NOTE | 2025-01-21 09:52 | HO.NEPHOV ---
Vital Signs 01/21/25 09:52 Height 5 ft 5 in Weight 148 lb BMI 24.6 BP 122/78 Blood Pressure Location Lt brachial Position Sitting Pulse 69 Pulse Source Pulse Oximeter Pulse Oximetry (%) 97 Oxygen Delivery Method Room Air Intake Visit Reasons: 1 MO FU-Conf Technical Delivery Manager Required: No Accompanied by: Self / Same As Patient Allergies nut - unspecified (NUTS) Allergy (Intermediate, Verified 01/21/25 09:53) ITCHY THROAT nitroglycerin (NITROGLYCERIN) Adverse Reaction (Unknown, Verified 01/21/25 09:53) HEADACHES BREAD Allergy (Mild, Uncoded 12/18/24 11:16) RUNNY NOSE Lopid Allergy (Unknown, Uncoded 12/18/24 11:16) Unknown nsaids Allergy (Unknown, Uncoded 12/18/24 11:16) Unknown Percocet Allergy (Unknown, Uncoded 12/18/24 11:16) Unknown Medication List - Last Reconciled 01/21/25 by Wyatt Mccoy MD amlodipine 5 mg PO DAILY finasteride 5 mg PO DAILY hydralazine 75 mg PO TID metformin ER 500 mg PO DAILY@1800 metoprolol succinate ER 25 mg PO DAILY omeprazole 20 mg PO BID tamsulosin 0.8 mg (2 x 0.4 mg) PO DAILY HPI Comments Details: 63-year-old male with history of hypertension, pkh-oxlxvhg-[id number] type 2 diabetes, hyperlipidemia, and BPH following with [facility] urology / , presented to the ED for evaluation of right lower quadrant and flank/low back pain as well as nausea, vomiting, subjective fevers and chills ongoing for several days. He was found to have acute kidney injury. ALESSANDRA was most likely due to the combination of hypoperfusion in the setting of sepsis/bacteremia and he also had a component of urinary retention. Lopez catheter was inserted. DAVID inhibitors, HCTZ and meloxicam were held. With IV hydration renal function returned to baseline. He was discharged home with a Lopez. He was seen by Dr. Salvador 2 days ago. Lopez has been removed. He still has some dysuria but no difficulty. Serum creatinine has returned to baseline of 1.12. He does have non nephrotic proteinuria in the setting of diabetes mellitus 05/29/24;Here for f/u; Had difficulty urinating with back pain 09/17/24 Seen by in Jun. Treated with a course of Bactrim and Mobic Feels better now No new urinary issues Was given Lisonopril 40 mg by pharmacy BP has been low Today he did not take Lisinopril Claims that his BP was better with 10 mg 12/17/24 Feels dizzy when he takes HCTZ Did not take any anti hypertensives this morning BP is in normal range 01/21/25 After lowering meds, BP is better. No further dizziness Off Meloxicam - used to take 2-3 a day COUNT INCLUDES THE [facility] Medical History Prostatitis Hyperlipidemia BPH (benign prostatic hyperplasia) Diabetes 1.5, managed as type 2 HTN (hypertension) Surgical History History of knee surgery Social History Household Members: Spouse, Family and Children Housing: Apartment Do you presently have visiting nurse or other home services: No Patient Tobacco Use Status: Never used Tobacco e-Cigarette/Vaping Use: Never Used service: No Physical Exam Vital Signs: Last Vital Signs Pulse 69 01/21/25 09:52 BP 122/78 01/21/25 09:52 Pulse Ox 97 01/21/25 09:52 Oxygen Delivery Method Room Air 01/21/25 09:52 BMI result Body Mass Index 24.6 Comfortable Neck supple no JVD. Lungs entry equal no rales. Heart S1-S2 heard no gallop or rub. Abdomen soft nontender. Neuro alert awake oriented. No asterixis. Extremities no edema. Results Reviewed Nephrology Results: Sodium, (135-145) 142 mmol/L 01/15/25 Potassium, (3.3-5.1) 4.1 mmol/L 01/15/25 Chloride, (96-108) 106 mmol/L 01/15/25 Carbon Dioxide, (22-29) 28 mmol/L 01/15/25 BUN, (9-16) 25 mg/dL H 01/15/25 Creatinine, (0.5-1.4) 1.48 mg/dL H 01/15/25 Calcium, (8.4-10.2) 8.8 mg/dL Δ 01/15/25 Urine Protein, (Neg-Trace) 30 (1+) mg/dL H 01/15/25 Urine Creatinine 85.29 mg/dL 12/10/24 Renal US 06/05/24 Assessment & Plan Assessment & Plan (1) ALESSANDRA (acute kidney injury): Code(s): N17.9 - Acute kidney failure, unspecified Category: Medical (2) HTN (hypertension): Code(s): I10 - Essential (primary) hypertension Category: Medical Plan 64-year-old man with ALESSANDRA superimposed on mild CKD in a setting of longstanding diabetes mellitus and enlarged prostate with non nephrotic range proteinuria. The ALESSANDRA was due to hypoperfusion combined with possible urinary retention. Renal function is back to baseline. Cr down to 1.2 Baseline workup for proteinuria was unremarkable Blood pressure is well controlled. I will continue with DAVID inhibitor for renal protection. Change Lisinopril to 10 mg QD ( from 40 mg) We would avoid NSAIDs due to the risk of hypoperfusion in combination with DAVID inhibitors. I have encouraged him to increase p.o. fluid intake Stay on low-sodium diet. Follow with as well 12/17/24 ALESSANDRA due to hypoperfusion STOP LIsinopril Stop HCTZ due to low BP/dizziness/ALESSANDRA REcheck Creatinine is 3 weeks 01/21/25 BP acceptable No hypotension No improvement in creatinine Avoid NSAIDS/Meloxicam Orders: Orders Basic Metabolic Panel 3 Months N17.9 - Acute kidney failure, unspecified Coding Level of Care Code Est Pt Level 4 (30907) Diagnoses ALESSANDRA (acute kidney injury) N17.9 HTN (hypertension) I10
--- OUTSIDE RECORDS SUMMARY | 2025-01-21 11:02 | XMS_ITS | Encounter Summary ---
Author Organization [facility] Address [address] [place] [address] Phone Care Team Providers Care Sawsmith Name Role Phone Arsh Torres MD Primary Care Provide r Reason for Referral * MRI/CAT Scan - Closed Specialty Diagnoses / Procedures Referred By Contac t Referred To Contact Procedures CT Abdomen/Pelvis Outside (No Interpretation) System, Provider Not In, [facility] [address] [address] Referral ID Status Reason Start Date Expiration Date Visits Re quested Visits Authorized [id number] Closed 09/18/2018 09/18/2019 1 1 Encounter Details Date Type Department Care Team (Late st Contact Info) Description 09/18/2018 Ancillary Orders [facility],Outside Imaging [address] [place] [address] System, Provider Not In, [facility] [address] [address] Social History Tobacco Use Types Packs/Day Years [...] on filedocumented in this encounter Care Teams Sawsmith Relationship Specialty Start Date End Date Arsh Torres MD [address] [place] [address] [address] [place] [address] [email or web address] PCP - General 03/03/17 documented as of this encounter Additional Source Comments The information contained in this document represents components of the legal health record. It is not the complete legal health record.[facility]
--- OUTSIDE RECORDS SUMMARY | 2025-01-21 11:02 | XMS_ITS | Encounter Summary ---
Author Organization [facility] Address [address] [place] [address] Phone Care Team Providers Care Equal Employment Opportunity Officer Name Role Phone Arsh Torres MD Primary Care Provide r Encounter Details Date Type Department Care Team (Late st Contact Info) Description 09/18/2018 Ancillary Orders [facility],Outside Imaging [address] [place] [address] System, Provider Not In, PhD [address] [address] Social History Tobacco Use Types Packs/Day Years [...] on filedocumented in this encounter Care Teams Equal Employment Opportunity Officer Relationship Specialty Start Date End Date Arsh Torres MD 230 [facility] [address] [place] [address] [email or web address] PCP - General 03/03/17 documented as of this encounter Additional Source Comments The information contained in this document represents components of the legal health record. It is not the complete legal health record.[facility]
--- OUTSIDE RECORDS SUMMARY | 2025-01-21 11:02 | XMS_ITS | Encounter Summary ---
Author Organization [facility] Address [address] [place] [address] Phone Care Team Providers Care Tie Worker Name Role Phone Arsh Torres MD Primary Care Provide r Reason for Referral * MRI/CAT Scan - Closed Specialty Diagnoses / Procedures Referred By Contac t Referred To Contact Procedures CT Abdomen/Pelvis Outside (No Interpretation) System, Provider Not In, [facility] [address] [address] Referral ID Status Reason Start Date Expiration Date Visits Re quested Visits Authorized [id number] Closed 09/18/2018 09/18/2019 1 1 Encounter Details Date Type Department Care Team (Late st Contact Info) Description 09/18/2018 Ancillary Orders [facility],Outside Imaging [address] [place] [address] System, Provider Not In, [facility] [address] [address] Social History Tobacco Use Types Packs/Day Years [...] on filedocumented in this encounter Care Teams Tie Worker Relationship Specialty Start Date End Date Arsh Torres MD [address] [place] [address] [address] [place] [address] [email or web address] PCP - General 03/03/17 documented as of this encounter Additional Source Comments The information contained in this document represents components of the legal health record. It is not the complete legal health record.[facility]
--- OUTSIDE RECORDS SUMMARY | 2025-01-21 11:02 | XMS_ITS | Encounter Summary ---
Author Organization [facility] Address [address] [place] [address] Phone Care Team Providers Care Fraud Analyst Name Role Phone Arsh Torres MD Primary Care Provide r Encounter Details Date Type Department Care Team (Late st Contact Info) Description 08/17/2023 Transcribe Orders Virtual Department 30 [place] [address] Sarah Mojica PA-C [address] [place] [address] [email or web address] Cyst of kidney, acquired (Primary Dx); Calculus [...] clinician's provided indication for this examination in [facility]: Outside Radiology Order; CYST OF KIDNEY, CALCULUS [...] clinician's provided indication for this examination in [facility]:Outside Radiology Order; CYST OF KIDNEY, CALCULUS OF [...] kidney documented in this encounter Care Teams Fraud Analyst Relationship Specialty Start Date End Date Arsh Torres MD [address] [place] [address] [address] [place] [address] [email or web address] PCP - General 03/03/17 documented as of this encounter Additional Source Comments The information contained in this document represents components of the legal health record. It is not the complete legal health record.[facility]
--- OUTSIDE RECORDS SUMMARY | 2025-01-21 11:03 | XMS_ITS | Encounter Summary ---
Author Organization [facility] Address [address] [place] [address] Phone Care Team Providers Care Medical Imaging Technologist Name Role Phone Arsh Torres MD Primary Care Provide r Encounter Details Date Type Department Care Team (Late st Contact Info) Description 09/04/2018 Procedure Pass [facility], [address] [place] [address] Social History Tobacco Use Types Packs/Day Years [...] on filedocumented in this encounter Care Teams Medical Imaging Technologist Relationship Specialty Start Date End Date Arsh Torres MD 230 [facility] [address] [place] [address] PCP - General 03/03/17 documented as of this encounter Additional Source Comments The information contained in this document represents components of the legal health record. It is not the complete legal health record.[facility]
--- OUTSIDE RECORDS SUMMARY | 2025-01-21 11:03 | XMS_ITS | Encounter Summary ---
Author Organization [employer] Address [address] [facility] 7t [place] [address] Care Team Providers Care Commutator Inspector Name Role Phone Arsh Gamez MD Primary Care Provide r Reason for Visit * Reason Comments Med Refill Encounter Details Date Type Department Care Team ([facility] st Contact Info) Description 05/11/2024 Refill [facility] MEDICINE [address] [place], [place] [phone] Arsh Gamez MD [address] [place], [place] [phone] Need for prophylactic antibiotic Social History Tobacco [...] Description 06/13/2025 8:00 AM EST Office Visit [facility] ADULT DENTAL [address] [place] [address] Mari Bloom documented as of this encounter Visit Diagnoses Diagnosis Need for prophylactic antibiotic Encounter for long-term (current) use of antibiotics documented in this encounter Additional Health Concerns Assessment Noted Time PHQ-9 Depression Total Score: 0 09/29/19 24 9:32 AM EDT documented as of this encounter Care Teams Commutator Inspector Relationship Specialty Start Date End Date Arsh Gamez MD [address] [place] [address] PCP - General Internal Medicine 12/18/13 documented as of this encounter
--- OUTSIDE RECORDS SUMMARY | 2025-01-21 11:03 | XMS_ITS | Encounter Summary ---
Author Organization [facility] Address [address] [place] [address] Phone Care Team Providers Care Steward/Stewardess Economy Class Name Role Phone Arsh Torres MD Primary Care Provide r Encounter Details Date Type Department Care Team (Latest Contact Info) Description 04/18/2020 Transcribe Orders Virtual Department 30 [place] [address] Roselia Blanco PA-C [address] [place] [address] [email or web address] Pancreatic cyst (Primary Dx); LLQ abdominal pain; [...] type documented in this encounter Care Teams Steward/Stewardess Economy Class Relationship Specialty Start Date End Date Arsh Torres MD [address] [place] [address] [address] BETTY [place] [address] [email or web address] PCP - General 03/03/17 documented as of this encounter Additional Source Comments The information contained in this document represents components of the legal health record. It is not the complete legal health record.[facility]
--- OUTSIDE RECORDS SUMMARY | 2025-01-21 11:03 | XMS_ITS | Encounter Summary ---
Author Organization [facility] Address [address] [place] [address] Phone Care Team Providers Care Svp Innovation Partnerships Name Role Phone Arsh Torres MD Primary Care Provide r Encounter Details Date Type Department Care Team (Latest Contact Info) Description 08/31/[address] [facility] Laboratory [address] 2[address] [place] [address] Ky De La Fuente NP [address] [place] [address] [email or web address] Change in bowel habits (Primary Dx) [...] IGG 1 716 341 - 894 mg/dL [facility] IGG 2 387 171 - 632 mg/dl [facility]PATH [address]PER[address] DR IGG 3 39.6 18.4 - 106.0 mg/dl [facility] MED/PATH SUPERIOR DR IGG 4 13.5 2.4 - 121.0 mg/dl [facility] LAB MED/PATH SUPERIOR TOTAL IGG 1,160 767 - 1,590 mg/dl [facility] MED/PATH SUPERIOR Blood 08/31/2018 9:24 AM EDT 08/31/2018 9:29 AM EDT us Ky De La Fuente NP LAB BLOOD ORDERABLES Final Re sult [facility] LAB MED/PATH [address] [place] [address] documented in this encounter Visit Diagnoses Diagnosis Change in bowel habits- Primary Other symptoms involving digestive system documented in this encounter Care Teams Svp Innovation Partnerships Relationship Specialty Start Date End Date Arsh Torres MD [address] [place] [address] [address] [place] [phone] [email or web address] PCP - General 03/03/17 documented as of this encounter Additional Source Comments The information contained in this document represents components of the legal health record. It is not the complete legal health record.[facility]
--- OUTSIDE RECORDS SUMMARY | 2025-01-21 11:03 | XMS_ITS | Encounter Summary ---
Author Organization [facility] Address [address] [place] [address] Phone Care Team Providers Care Scheduler Maintenance Name Role Phone Arsh Torres MD Primary Care Provide r Encounter Details Date Type Department Care Team (Latest Contact Info) Description 06/05/2020 Transcribe Orders Virtual Department 30 [place] [address] Kalpesh Vitale MD [address] [place] [address] [phone] [email or web address] Pre-operative laboratory examination (Primary Dx) Social History [...] Order (06/08/2020 8:01 AM EST) COVID-19 Comment [id number] [facility] COVID Testing Status Sent to [facility] 06/08/2020 8:01 AM EST 06/08/2020 11:43 AM EST us Kalpesh Vitale MD BODY FLUIDS AND STOOLS ORDER ANDIE Final Result [facility] [address] [place] [address] documented in this encounter Visit Diagnoses Diagnosis Pre-operative laboratory examination- Primary Pre-procedural laboratory examination documented in this encounter Care Teams Scheduler Maintenance Relationship Specialty Start Date End Date Arsh Torres MD [address] [place] [address] [address] [place] [address] PCP - General 03/03/17 documented as of this encounter Additional Source Comments The information contained in this document represents components of the legal health record. It is not the complete legal health record.[facility]
--- OUTSIDE RECORDS SUMMARY | 2025-01-21 11:03 | XMS_ITS | Encounter Summary ---
Author Organization [facility] Address [address] [place] [address] Phone Care Team Providers Care Tailor Garment Fitter Name Role Phone Arsh Torres MD Primary Care Provide r Encounter Details Date Type Department Care Team (Latest Contact Info) Description 01/12/2019 Transcribe Orders Virtual Department [address] [place] [address] Reymundo Salvador MD [address] [place] [address], [address] [address] [email or web address] Cyst of kidney, acquired (Primary Dx) [...] RIGHT renal calculus. No hydronephrosis. POS - [id number] Narrative 04/23/2019 9:38 AM EST EXAM: US [...] in the lower pole. Procedure Note Hallie Owens MD - 04/23/2019 EXAM: US KIDNEYS HISTORY: [...] RIGHT renal calculus. No hydronephrosis. POS - [id number] Reymundo Salvador MD [facility] RENAL Final Result documented in this encounter Visit Diagnoses Diagnosis Cyst of kidney, acquired- Primary Acquired cyst of kidney Cyst of kidney, acquired Acquired cyst of kidney documented in this encounter Care Teams Tailor Garment Fitter Relationship Specialty Start Date End Date Arsh Torres MD [address] [place] [address] [place] [phone] [email or web address] PCP - General 03/03/17 documented as of this encounter Additional Source Comments The information contained in this document represents components of the legal health record. It is not the complete legal health record.[facility]
--- OUTSIDE RECORDS SUMMARY | 2025-01-21 11:03 | XMS_ITS | Encounter Summary ---
Author Organization [facility] Address [address] [place] [address] Phone Care Team Providers Care Client Server Programmer Name Role Phone Arsh Torres MD Primary Care Provide r Encounter Details Date Type Department Care Team (Late st Contact Info) Description 02/23/2019 Ancillary Orders [facility], X-Ray - [address] [place] [address] Arsh Torres MD 230 [facility] [address] [place] [address] [email or web address] Left knee pain, unspecified [...] LEFT knee. No joint effusions. POS - [id number] Edited by: Sanam Velazquez on 02/23/2019 3:52 [...] LEFT knee. No joint effusions. POS - [id number] Edited by: Sanam Velazquez on 02/23/2019 3:52 PM Arsh Torres MD IMG XR LOWER EXTREMIT Y Final Result documented in this encounter Visit Diagnoses Diagnosis Left knee pain, unspecified chronicity Left knee pain, unspecified chronicity documented in this encounter Care Teams Client Server Programmer Relationship Specialty Start Date End Date Arsh Torres MD [address] [place] [address] [place] [phone] [email or web address] PCP - General 03/03/17 documented as of this encounter Additional Source Comments The information contained in this document represents components of the legal health record. It is not the complete legal health record.[facility]
--- OUTSIDE RECORDS SUMMARY | 2025-01-21 11:03 | XMS_ITS | Encounter Summary ---
Author Organization [facility] Address [address] [place] [address] Phone Care Team Providers Care Reconciliation Machine Operator Name Role Phone Arsh Torres MD Primary Care Provide r Encounter Details Date Type Department Care Team (Latest Contact Info) Description 05/12/2020 Transcribe Orders Virtual Department 30 [place] [address] Reymundo Salvador MD [address] [place] [address], [address] [address] [email or web address] Hesitancy of micturition (Primary Dx); Benign prostatic [...] not evaluated. POS [id number] Reymundo Salvador MD [facility] RENAL Final Result documented in this encounter [...] hesitancy documented in this encounter Care Teams Reconciliation Machine Operator Relationship Specialty Start Date End Date Arsh Torres MD 230 [facility] [address] [place] [address] [email or web address] PCP - General 03/03/17 documented as of this encounter Additional Source Comments The information contained in this document represents components of the legal health record. It is not the complete legal health record.[facility]
--- OUTSIDE RECORDS SUMMARY | 2025-01-21 11:03 | XMS_ITS | Encounter Summary ---
Author Organization [facility] Address [address] [place] [address] Phone Care Team Providers Care Watch Supervisor Name Role Phone Arsh Torres MD Primary Care Provide r Encounter Details Date Type Department Care Team (Latest Contact Info) Description 04/01/2020 Transcribe Orders [facility] [address] 2nd [place] [address] Roselia Blanco PA-C [address], [address] [place] [address] [email or web address] Pancreatic cyst (Primary Dx); Constipation, unspecified constipation [...] EST) TSH 1.46 0.27 - 4.20 uIU/mL [facility] Blood 04/01/2020 3:50 PM EST 04/01/2020 3:55 PM EST Roselia WEEKS-Carmen LAB BLOOD ORDERABLES Final Resu lt [address] [address] * C-Reactive Protein (04/01/2020 3:50 PM EST) Pathologist [facility] C REACTIVE PROTEIN 1.2 0.0 - 4.0 mg/L [facility] Blood 04/01/2020 3:50 PM EST 04/01/2020 3:55 PM EST us Roselia WEEKS-Carmen LAB BLOOD ORDERABLES Final Resu Performing Organization Address City/[facility]/ZIP Co de Phone Number [address] [address] * Comprehensive metabolic panel (04/01/2020 3:50 PM EST) SODIUM 139 133 - 146 mmol/L [facility] POTASSIUM 4.3 3.3 - 5.1 mmol/L [facility] CHLORIDE 106 96 - 108 mmol/L [facility] CO2 23 21 - 35 mmol/L [facility] BUN 19 6 - 19 mg/dL [facility] CREATININE 1.00 0.5 - 1.5 mg/dL [facility] GLUCOSE 98 70 - 99 mg/dL [facility] ALBUMIN 4.3 3.9 - 4.8 g/dL [facility] TOTAL PROTEIN 7.1 6.5 - 8.0 g/dL [facility] CALCIUM 9.3 8.4 - 10.3 mg/dL [facility] ALKALINE PHOSPHATASE 80 39 - 117 U/L [facility] TOTAL BILIRUBIN 0.3 0.0 - 1.2 mg/dL [facility] AST 24 0 - 37 U/L [facility] ALT 24 0 - 40 U/L [facility] GLOBULIN 2.8 1 - 4.8 g/dL [facility] EGFR 81 >59 mL/min/1.7 3m2 [facility] Comment:Estimated glomerular filtration rate calculated using the CKD-EPI equation. ANION GAP 14 10 - 20 mmol/L [facility] Blood 04/01/2020 3:50 PM EST 04/01/2020 3:55 PM EST Roselia Blanco PA-C LAB BLOOD ORDERABLES Final Resu lt Performing Organization Address [facility]/ZIP Co de Phone Number [address] [address] * (ABNORMAL) CBC (04/01/2020 3:50 PM EST) WBC 6.96 4.00 - 11.00 K/uL [facility] Comment:Note Reference Range updates to all CBC and Differential results. RBC 5.78(H) 3.90 - 5.69 M/uL [facility] HGB 15.3 12.4 - 17.3 g/dL [facility] Comment:Note updated Referen ce Ranges for all CBC and Differential results. HCT 46.1 37.0 - 51.0 % [facility] PLT 252 140 - 430 K/uL [facility] MCV 79.8 78.0 - 97.0 fL [facility] MCH 26.5 25.0 - 33.0 pg [facility] MCHC 33.2 32.0 - 36.0 g/dL [facility] RDW 14.5 11.0 - 15.0 % [facility] MPV 10.5 8.4 - 12.8 fl [facility] NRBC 0.00 0 /100 WBCs [facility] ABSOLUTE NRBC 0.00 0 K/uL [facility] Blood 04/01/2020 3:50 PM EST 04/01/2020 3:55 PM EST us Roselia Blanco PA-C LAB BLOOD ORDERABLES Final Resu lt Performing Organization Address [facility]/ZIP Co de Phone Number [address] [address] * Immunoglobulin A (04/01/2020 3:50 PM EST) IgA 393 70 - 400 mg/dL [facility] Blood 04/01/2020 3:50 PM EST 04/01/2020 3:55 PM EST us Roselia Blanco PA-C LAB BLOOD ORDERABLES Final Resu lt [facility] [address] [place] [address] * Tissue transglutaminase IgA (04/01/2020 3:50 PM EST) TTG IGA ANTIBODY <1.2 <4.0 (Negative) U/mL [facility] LAB MED/[address] Blood 04/01/2020 3:50 PM EST 04/01/2020 3:55 PM EST Roselia Blanco PA-C LAB BLOOD ORDERABLES Final Resu lt [facility] MED/[address] [place] [address] documented in this encounter Visit Diagnoses Diagnosis Pancreatic cyst- Primary Cyst and pseudocyst of pancreas Constipation, unspecified constipation type Abdominal pain, left lower quadrant documented in this encounter Care Teams Watch Supervisor Relationship Specialty Start Date End Date Arsh Torres MD [address] [place] [address] [place] [phone] [email or web address] PCP - General 03/03/17 documented as of this encounter Additional Source Comments The information contained in this document represents components of the legal health record. It is not the complete legal health record.[facility]
--- OUTSIDE RECORDS SUMMARY | 2025-01-21 11:03 | XMS_ITS | Encounter Summary ---
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 Procedures MRI Cholangiopancreatography (MRCP) Ky De La Fuente NP Phone: tel: fax: mailto:[email or web address] Referral ID Status Reason Start Date Expiration Date Visits Re quested Visits Authorized [id number] Closed 09/04/2018 09/04/2019 1 1 Encounter Details Date Type Department Care Team (Latest Contact Info) Description 09/04/2018 Transcribe Orders Virtual Department 30 [place] [address] Ky De La Fuente NP [address] [place] [address] [email or web address] Alcohol induced acute pancreatitis without necrosis or [...] No hepatic, gallbladder or biliary pathology. POS [id number] Narrative 09/14/2018 10:18 AM EDT TECHNIQUE: 1.5 [...] to typed report of CT 08/05/2018 from [facility] as well as [facility] ultrasound from 04/25/[address] 07/23/2011. FINDINGS: [...] to typed report of CT 08/05/2018 from [facility] aswell as [facility] ultrasound from [...] No hepatic, gallbladder or biliary pathology. 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 It is not the complete legal health record.[facility]
--- OUTSIDE RECORDS SUMMARY | 2025-01-21 11:03 | XMS_ITS | Encounter Summary ---
Author Organization [facility] Address [address] [place] [address] Phone Care Team Providers Care Textile Engineer Name Role Phone Arsh Torres MD Primary Care Provide r Encounter Details Date Type Department Care Team (Late st Contact Info) Description 03/17/2023 Transcribe Orders [facility] Specimen Processing 30 [place] [address] Arsh Torres MD 230 [facility] [address] [place] [address] [email or web address] Social History Tobacco [...] filedocumented in this encounter Care Teams Textile Engineer Relationship Specialty Start Date End Date Arsh Torres MD [address] [facility] [address] [place] [address] PCP - General 03/03/17 documented as of this encounter Additional Source Comments The information contained in this document represents components of the legal health record. It is not the complete legal health record.[facility]
--- OUTSIDE RECORDS SUMMARY | 2025-01-21 11:03 | XMS_ITS | Encounter Summary ---
Author Organization [facility] Address [address] [place] [address] Phone Care Team Providers Care Broomcorn Grader Name Role Phone Arsh Torres MD Primary Care Provide r Encounter Details Date Type Department Care Team (Latest Contact Info) Description 04/27/2018 Transcribe Orders [facility] Laboratory [address] 2[address] [place] [address] Roselia Blanco PA-C [address], [address] [place] [address] [email or web address] Fecal urgency (Primary Dx); Lower abdominal pain [...] antigen, stool (05/12/2018 8:38 AM EST) Pathologist [facility] H.[employer] Negative Negative [facility] DPT OF LAB MED AND PAT+ Stool (Stool) 05/12/2018 8:3 8 AM EST 05/12/2018 9:30 AM EST Roselia Blanco PA-C BODY FLUIDS AND STOOLS ORDERABL ES Final Result [facility] DPT OF LAB MED AND PAT+ [address] [place] [address] * Giardia antigen screen (05/12/2018 8:38 AM EST) ST GIARDIA ANTIGEN Negative Negative [facility] DPT OF LAB MED AND PAT+ Stool (Stool) 05/12/2018 8:3 8 AM EST 05/12/2018 9:30 AM EST us Roselia Blanco PA-C MICROBIOLOGY - GENERAL ORDERABL ES Final Result Performing Organization Address [facility] Co de Phone Number [facility] DPT OF LAB MED AND PAT+ [address] [place] [address] * Fecal leukocyte examination (05/12/2018 8:38 AM EST) Specimen Source/ Description STOOL STOOL [facility] Special Requests None [facility] [employer] [facility] GRAM STAIN NO WBC'S [facility] Report Status 05/13/2018 FINAL [facility] Stool (Stool) 05/12/2018 8:3 8 AM EST 05/12/2018 9:29 AM EST Roselia Blanco PA-C MICROBIOLOGY - GENERAL ORDERABL ES Final Result [facility] [address] [place] [address] * Stool culture (05/12/2018 8:38 AM EST) Specimen Source/ Description STOOL STOOL STOOL [facility] Special Requests None [facility] Culture/Test NO SALMONELLA, SHIGELLA OR CAMPYLOBACTER ISOLATED [facility] Report Status 05/15/2018 FINAL [facility] Stool (Stool) 05/12/2018 8:3 8 AM EST 05/12/2018 9:29 AM EST Roselia Blanco PA-C MICROBIOLOGY - GENERAL ORDERABL ES Final Result Performing Organization Address [facility] Co de Phone Number [address] [address] * Ova and parasites, stool (05/04/2018 7:00 AM EST) Specimen Source/ Description STOOL STOOL [facility] Special Requests None [facility] DIRECT EXAM NO PARASITES FOUND BY DIRECT OR CONCENTRATION METHODS [facility] DIRECT EXAM No parasites found by Trichrome Stain [facility] Report Status 05/15/2018 FINAL [facility] Stool (Stool) 05/04/2018 7:0 0 AM EST 05/12/2018 9:31 AM EST us Roselia Blanco PA-C MICROBIOLOGY - GENERAL MIHAIABL ES Final Result Performing Organization Address [facility] Co de Phone Number [address] [address] * Ova and parasites, stool (05/03/2018 7:00 AM EST) Specimen Source/ Description STOOL PARA JOSE STOOL [facility] Special Requests None [facility] DIRECT EXAM NO PARASITES FOUND BY DIRECT OR CONCENTRATION METHODS [facility] DIRECT EXAM No parasites found by Trichrome Stain [facility] Report Status 05/15/2018 FINAL [facility] Stool (Stool) 05/03/2018 7:0 0 AM EST 05/12/2018 9:31 AM EST Roselia Blanco PA-C MICROBIOLOGY - GENERAL ORDERABL ES Final Result Performing Organization Address City/[facility] Co de Phone Number [address] [address] * Ova and parasites, stool (05/02/2018 7:00 AM EST) Specimen Source/ Description STOOL PARA JOSE STOOL [facility] Special Requests None [facility] DIRECT EXAM NO PARASITES FOUND BY DIRECT OR CONCENTRATION METHODS [facility] DIRECT EXAM No parasites found by Trichrome Stain [facility] Report Status 05/15/2018 FINAL [facility] Stool (Stool) 05/02/2018 7:0 0 AM EST 05/12/2018 9:32 AM EST Roselia Blanco PA-C MICROBIOLOGY - GENERAL ORDERABL ES Final Result Performing Organization Address [facility] Co de Phone Number [address] [address] * TSH (04/27/2018 9:56 AM EST) TSH 1.65 0.27 - 4.20 uIU/mL [facility] Blood 04/27/2018 9:56 AM EST 04/27/2018 10:03 AM EST us Roselia Blanco PA-C LAB BLOOD ORDERABLES Final Resu lt Performing Organization Address [facility] Co de Phone Number [address] [address] * C-Reactive Protein (04/27/2018 9:56 AM EST) C REACTIVE PROTEIN 0.7 0.0 - 4.0 mg/L [facility] Blood 04/27/2018 9:56 AM EST 04/27/2018 10:03 AM EST us Roselia Blanco PA-C LAB BLOOD ORDERABLES Final Resu lt Performing Organization Address [facility] Co de Phone Number [address] [address] * (ABNORMAL) Comprehensive metabolic panel (04/27/2018 9:56 AM EST) SODIUM 139 133 - 146 mmol/L [facility] POTASSIUM 4.2 3.3 - 5.1 mmol/L [facility] CHLORIDE 102 96 - 108 mmol/L [facility] CO2 24 21 - 35 mmol/L [facility] BUN 24(H) 6 - 19 mg/dL [facility] CREATININE 1.10 0.5 - 1.5 mg/dL [facility] GLUCOSE 112(H) 70 - 99 mg/dL [facility] ALBUMIN 4.3 3.9 - 4.8 g/dL [facility] TOTAL PROTEIN 7.2 6.5 - 8.0 g/dL [facility] CALCIUM 9.7 8.4 - 10.3 mg/dL [facility] ALKALINE PHOSPHATASE 85 39 - 117 U/L [facility] TOTAL BILIRUBIN 0.5 0.0 - 1.2 mg/dL [facility] AST 23 0 - 37 U/L [facility] ALT 20 0 - 40 U/L [facility] GLOBULIN 2.9 1 - 4.8 g/dL [facility] EGFR 74 >59 mL/min/1.7 3m2 [facility] Comment:If patient is black, multiply result by 1.159. Estimated glomerular filtration rate calculated using the CKD-EPI equation. ANION GAP 17 10 - 20 mmol/L [facility] Blood 04/27/2018 9:56 AM EST 04/27/2018 10:03 AM EST us Roselia Blanco PA-C LAB BLOOD ORDERABLES Final Resu lt Performing Organization Address City/State/[facility] Co de Phone Number [facility] [address] [place] [address] * (ABNORMAL) CBC (04/27/2018 9:56 AM EST) WBC 6.09 3.40 - 11.20 K/uL [facility] RBC 5.72(H) 4.50 - 5.50 M/uL [facility] HGB 16.5 13.0 - 17.0 g/dL [facility] HCT 48.1 40.0 - 51.0 % [facility] PLT 214 130 - 400 K/uL [facility] MCV 84.1 79.0 - 98.0 fL [facility] MCH 28.8 27.0 - 34.8 pg [facility] MCHC 34.3 31.5 - 36.0 g/dL [facility] RDW 13.2 10.8 - 14.6 % [facility] MPV 10.6 9.4 - 12.4 fl [facility] NRBC 0.00 0.00 /100 WBCs [facility] ABSOLUTE NRBC 0.00 0.00 K/uL [facility] Blood 04/27/2018 9:56 AM EST 04/27/2018 10:03 AM EST Roselia Blanco PA-C LAB BLOOD ORDERABLES Final Resu lt Performing Organization Address City/[facility]/ZIP Co de Phone Number [address] [address] * Immunoglobulin A (04/27/2018 9:56 AM EST) IgA 361 70 - 400 mg/dL [facility] Blood 04/27/2018 9:56 AM EST 04/27/2018 10:03 AM EST us Roselia Blanco PA-C LAB BLOOD ORDERABLES Final Resu lt Performing Organization Address [facility]/ZIP Co de Phone Number [address] [address] * Tissue transglutaminase IgA (04/27/2018 9:56 AM EST) TTG IGA ANTIBODY <1.2 <4.0 (Negative) U/mL [facility] DPT OF LAB MED AND PAT+ Blood 04/27/2018 9:56 AM EST 04/27/2018 10:03 AM EST Roselia Blanco PA-C LAB BLOOD ORDERABLES Final Resu lt [facility] DPT OF LAB MED AND PAT+ [address] [place] [address] documented in this encounter Visit Diagnoses Diagnosis Fecal urgency- Primary Lower abdominal pain Abdominal pain, other specified site documented in this encounter Care Teams Broomcorn Grader Relationship Specialty Start Date End Date Arsh Torres MD [address] [place] [address] [place] [address] PCP - General 03/03/17 documented as of this encounter Additional Source Comments The information contained in this document represents components of the legal health record. It is not the complete legal health record.[facility]
--- OUTSIDE RECORDS SUMMARY | 2025-01-21 11:03 | XMS_ITS | Encounter Summary ---
Author Organization [facility] Address [address] [place] [address] Phone Care Team Providers Care Bleach Tester Name Role Phone Arsh Torres MD Primary Care Provide r Encounter Details Date Type Department Care Team (Late st Contact Info) Description 09/13/2023 Procedure Pass [place] Admitting Dept - Virtual Department [address] [place] [address] Social History Tobacco Use Types Packs/Day Years [...] on filedocumented in this encounter Care Teams Bleach Tester Relationship Specialty Start Date End Date Arsh Torres MD 230 [facility] [address] [place] [phone] PCP - General 03/03/17 documented as of this encounter Additional Source Comments The information contained in this document represents components of the legal health record. It is not the complete legal health record.[facility]
--- OUTSIDE RECORDS SUMMARY | 2025-01-21 11:03 | XMS_ITS | Clinical Summary ---
Author Organization [facility] Address [address] [place] [address] Care Team Providers Care Wheat Shipper Name Role Phone Arsh Sharif MD Primary Care Provider [phone] Allergies No known active allergies Medications meloxicam [...] Medicaid [place] Care Teams Wheat Shipper Relationship Specialty Start Date End Date Arsh Sharif MD [address] [place] [id number] PCP - General Internal Medicine 08/24/21
--- OUTSIDE RECORDS SUMMARY | 2025-01-21 11:03 | XMS_ITS | Encounter Summary ---
Author Organization [facility] Address [address] [place] [address] Phone Care Team Providers Care Director Veterinary Name Role Phone Arsh Torres MD Primary Care Provide r Encounter Details Date Type Department Care Team (Late st Contact Info) Description 03/01/2023 Procedure Pass [facility], [address] [place] [address] Social History Tobacco Use Types Packs/Day Years [...] filedocumented in this encounter Care Teams Director Veterinary Relationship Specialty Start Date End Date Arsh Torres MD [address] [place] [address] [address] [place] [phone] PCP - General 03/03/17 documented as of this encounter Additional Source Comments The information contained in this document represents components of the legal health record. It is not the complete legal health record.[facility]
--- OUTSIDE RECORDS SUMMARY | 2025-01-21 11:03 | XMS_ITS | Encounter Summary ---
Author Organization [facility] Address [address] [place] [address] Phone Care Team Providers Care Geophysical Prospector Name Role Phone Arsh Torres MD Primary Care Provide r Encounter Details Date Type Department Care Team (Late st Contact Info) Description 05/24/2017 Procedure Pass [place] Admitting Dept - Virtual Department [address] [place] [address] Social History Tobacco Use Types Packs/Day Years [...] on filedocumented in this encounter Care Teams Geophysical Prospector Relationship Specialty Start Date End Date Arsh Torres MD 230 [facility] [address] [place] [phone] PCP - General 03/03/17 documented as of this encounter Additional Source Comments The information contained in this document represents components of the legal health record. It is not the complete legal health record.[facility]
--- OUTSIDE RECORDS SUMMARY | 2025-01-21 11:03 | XMS_ITS | Encounter Summary ---
Author Organization [facility] Address [address] [place] [address] Phone Care Team Providers Care Toy Electric Train Repairer Name Role Phone Arsh Torres MD Primary Care Provide r Encounter Details Date Type Department Care Team (Latest Contact Info) Description 04/28/2018 Transcribe Orders [facility] [address] [place] [address] Dr Lee BETTY [address] Reymundo Salvador MD [address] [place] [address], [address] [place] [address] [email or web address] Benign prostatic hyperplasia with lower urinary tract [...] EST) PSA 1.27 0 - 4.00 ng/mL [facility] Blood 04/28/2018 12:4 0 PM EST 04/28/2018 12:42 PM EST us Reymundo Salvador MD LAB BLOOD ORDERABLES Final Res ult [facility] [address] [place] [address] documented in this encounter Visit Diagnoses Diagnosis Benign prostatic hyperplasia with lower urinary tract symptoms, symptom details unspecified- Primary documented in this encounter Care Teams Toy Electric Train Repairer Relationship Specialty Start Date End Date Arsh Torres MD [address] [place] [address] [address] [place] [address] [email or web address] PCP - General 03/03/17 documented as of this encounter Additional Source Comments The information contained in this document represents components of the legal health record. It is not the complete legal health record.[facility]
--- OUTSIDE RECORDS SUMMARY | 2025-01-21 11:03 | XMS_ITS | Clinical Summary ---
Author Organization [employer] Address [address] [facility] 7[address] [place] [address] Care Team Providers Care Creative Perfumer Name Role Phone Arsh Gamez MD Primary [...] tablet TOME MARCELINA TABLETA TODOS LOS MCKAY CHIEF SPECIALIST LEED 90 tablet 3 07/05/19 25 Active metoprolol [...] complication, without long-term current use of insulin ([facility]) USE DIRECTED TO TEST BLOOD SUGAR ONCE DAILY 50 each 7 12/19/19 25 Active TRUEplus Lancets 33G miscIndications :Type 2 diabetes mellitus without complication, without long-term current use of insulin ([facility]/HCC) USE DIRECTED TO TEST BLOOD SUGAR ONCE DAILY 100 each 3 12/19/19 25 Active Blood Glucose Monitoring Suppl (FreeStyle [place] Lite) w/Device kitIndications: Type 2 diabetes mellitus without complication, without long-term current use of insulin ([facility]) Use to test blood sugar once daily 1 kit 12/26/19 25 Active aspirin 81 MG EC tablet Take 1 tablet by mouth Once per day. Active clotrimazole-be tamethasone (Lotrisone) cream APPLY BY TOPICAL ROUTE EVERY 12 HOURS Active meloxicam (Mobic) 15 MG tablet TOME 1 TABLETA POR V A ORAL TODOS LOS D Active Blood Glucose Monitoring Suppl (FreeStyle [place] Lite) w/Device kitIndications: Type 2 diabetes mellitus without complication, without long-term current use of insulin ([facility]) Use to test blood sugar 2 times daily 1 kit 12/19/19 25 025 Discontinued(Re order (will not trigger notification to Pharmacy)) Active Problems Problem Noted Date Diagnosed Date [...] work yet and needs to apply to FMLA (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 Seen by Madeleine lBanco who recommended a 6 month follow up.Pt [...] 2:01 PM EST): Pt extensively evaluated by corporate law specialist Dr. Arrington last seen 10/02/2012. He [...] [place] [facility] [place] showed no evidence of recurrent [...] of [place] [facility] [place] showed no evidence of recurrent [...] Pt back to see Dr Campbell ( trauma counsellor) Pt stopped Amlodipine due GI side effects [...] Pt back to see Dr Campbell ( trauma counsellor) Pt stopped Amlodipine due GI side effects [...] Pt back to see Dr Campbell ( trauma counsellor) Pt stopped Amlodipine due GI side effects [...] Pt back to see Dr Campbell ( trauma counsellor) Pt stopped Amlodipine due GI side effects [...] Pt back to see Dr Campbell ( trauma counsellor) Pt stopped Amlodipine due GI side effects [...] Pt back to see Dr Campbell ( trauma counsellor) Pt stopped Amlodipine due GI side effects and dizziness Plan: continue current regimen Follow up in 4 months Gastroesophageal reflux disease without esophagi tis 02/12/2014 Assessment & Plan (06/16/2022 2:01 PM EST): Patient under the care [facility]. Last seen by Dr Vitale [...] Encounters Date Type Department Care Team Description 01/15/2025 Orders Only [facility] MEDICINE [address] [place] [address] Arsh Gamez MD Gastroesophageal reflux disease without esophagitis (Primary Dx) 01/10/2025 Telephone [facility] MEDICINE [address] [place] [address] Arsh Gamez MD Referral 12/28/2024 10:00 AM EDT Office Visit [facility] ADULT DENTAL [address] [place] [address] Power Davis, DMD 12/25/2024 Telephone [facility] MEDICINE [address] [place] [address] Arsh Gamez MD Prior Authorization 12/25/2024 Telephone [facility] MEDICINE [address] [place] [address] Arsh Gamez MD Nurse Triage 12/24/2024 Refill [facility] MEDICINE [address] [place] [address] Arsh Gamez MD Type 2 diabetes mellitus without complication, without long-term current use of insulin ([facility]) 12/20/2024 Telephone [facility] MEDICINE [address] [place] [address] Arsh Gamez MD Referral 12/19/2024 Telephone [facility] MEDICINE [address] [place] [address] Arsh Gamez MD Call Back Request 12/18/2024 9:00 AM EDT Office Visit [facility] MEDICINE [address] [place] [address] Arsh Gamez MD Type 2 diabetes mellitus without complication, without long-term current use of insulin ([facility]) (Primary Dx); Essential hypertension; Paroxysmal tachycardia (CMS/HCC); Encounter for immunization; Chronic midline low back pain without sciatica 12/18/2024 Refill [facility] MEDICINE [address] [place] [address] Arsh Gamez MD Type 2 diabetes mellitus without complication, without long-term current use of insulin (CMS/HCC) 12/18/2024 Travel 12/17/2024 Telephone [facility] MEDICINE [address] [place] [address] Arsh Gamez MD Chart Prep 12/13/2024 Telephone [facility] MEDICINE [address] [place] [address] Arsh Gamez MD appt request 12/11/2024 Orders Only [facility] [place] [address] Arsh Gamez MD 12/04/2024 Telephone [facility] [place] [address] Arsh Gamez MD telephone call 11/27/2024 8:00 AM EDT Office Visit [facility] ADULT DENTAL [address] [place] [address] Trena Lozano 11/27/2024 Refill [facility] WALK-IN CENTER [address] [place] [address] Arsh Gamez MD Benign prostatic hyperplasia with [...] 8:00 AM EST Office Visit [facility] ADULT DENTAL [address] [place] [address] Mari Bloom Health Maintenance Due Date Last Done Comments CT Colonography 1960 FIT DNA/Cologuard 1960 FIT 1960 FOBT 1960 HIV Screening 1960 Sigmoidoscopy 1960 Diabetes: Foot Exam 02/24/1970 Eye Exam 02/24/1970 Zoster Vaccines (1 of 2) 02/24/2010 RSV Patients and Patients Aged 60 years or older (1 - Risk 60-74 years 1-dose series) 2020 COVID-19 Vaccine ( season) 2025 04/29/2021, 07/22/2020, 06/24/2020 Influenza Vaccine (#1) 2025 , 03/17/2022, 05/14/2021, Additional history exists Alcohol/Substance Use Screening 05/03/2025 05/03/2024 Lipid Panel 05/23/2025 05/23/2024, 1210/2022, 06/17/2022, Additional history exists Dental Oral Exam [...] history exists Depression Screening 12/18/2025 12/18/2024, 12/19/19 Disability Screening 12/18/2025 12/18/2024 SDOH Screening 12/18/2025 [...] complication, without long-term current use of insulin ([facility]) POCT GLUCOSE Routine 12/18/2024 9:08 AM EDT Type 2 diabetes mellitus without complication, without long-term current use of insulin ([facility]) BASIC METABOLIC PANEL Routine 12/10/2024 [...] PM EDT Narrative 12/26/2024 7:16 AM EDT [address] [address] Magnetic Resonance Report Signed Patient: Jakob Machado MR#: [id number] : 1960 Acct:[id number] Age/Sex: 64 / M ADM Date: 12/25/24 Loc: HO.MRI Attending Dr: Arsh Torres MD Ordering Physician: Arsh Torres MD Date of Service: 12/25/24 Procedure(s): MR lumbar spine wo con Accession Number(s): [id number] cc: Arsh Torres MD EXAMINATION: MR LUMBAR [...] OV> 12/26/24 0713 DD/ 29 TD/TT: 12/25/241999 Pulp Machine Operator: Procedure Note Donotuseinterpreter, Image - 12/26/[address] [address] Magnetic Resonance Report Signed Patient: Jakob Machado [facility]#: [id number] : 1960Acct:[id number] Age/Sex: 64 / MADM Date: 12/25/24 Loc: HO.MRI Attending Dr: Arsh Torres MD Ordering Physician: Arsh Torres MD Date of Service: 12/25/24 Procedure(s): MR lumbar spine wo con Accession Number(s): [id number] cc: Arsh Torres MD EXAMINATION: MR LUMBAR [...] OV> 12/26/24 0713 DD/ 29 TD/TT: 12/25/241999 Pulp Machine Operator: Arsh Holliday MD IMG MRI PROCEDURES Fi nal Result * (ABNORMAL) POCT HGB A1C (12/18/2024 9:10 AM EDT) Hemoglobin A1C 5.8(A) 4.0 - 5.7 % QC Media Lot # [id number] Lot# Expiration Date [id number] Blood 12/18/2024 9:10 AM EDT Arsh Holliday MD POINT OF CARE TEST EN TER/EDIT ORDERABLES Final Result * POCT Glucose (12/18/2024 9:08 AM EDT) Glucose Blood, POC 81 60 - 200 mg/dL QC Media Lot # [id number] Lot# Expiration Date [id number] Blood Capillary blood specimen / Unknown 12/18/2024 9:08 AM EDT Arsh Holliday MD POINT OF CARE TEST EN TER/EDIT ORDERABLES Final Result * PSA,Total (12/10/2024 9:17 AM EDT) Prostate Specific Antigen 1.45 <0.05 - 4.0 ng/mL [facility] Comment:PSA methodology: Abb caron Alikishanty i ChemiluminescentMicroparticle Immunoassay (CMIA) 12/10/2024 9:17 AM EDT 12/10/2024 9:17 AM EDT Generic External Data Provider LAB BLOOD ORDERAB LES Final Result [facility] [address] [place] [phone] * (ABNORMAL) Basic Metabolic Panel (12/10/2024 9:17 AM EDT) Sodium 141 135 - 145 mmol/L [facility] Potassium 3.8 3.3 - 5.1 mmol/L [facility] Chloride 107 96 - 108 mmol/L [facility] Carbon Dioxide 26 22 - 29 mmol/L [facility] Anion Gap 12 12 - 20 [facility] Urea Nitrogen (BUN) 16 9 - 16 mg/dL [facility] Creatinine, Serum 1.48(H) 0.5 - 1.4 mg/dL [facility] Estimated Glomerular Filt Rate 48 [facility] Comment:Chronic Kidney Disea se: Estimated GFR < 60 mL/min/1.64b2Ukuprk Kidney Disease: Estimated GFR < 15 mL/min/1.73m2 Glucose 126(H) 60 - 115 mg/dL [facility] Calcium 9.7 8.4 - 10.2 mg/dL [facility] 12/10/2024 9:17 AM EDT 12/10/2024 9:17 AM EDT us Generic External Data Provider LAB BLOOD ORDERAB LES Final Result Performing Organization Address City/Va Hospital/ZIP Co de Phone Number [facility] [address] [place] [phone] * (ABNORMAL) Urine Protein, Total, Random without Creatinine (12/10/2024 9:12 AM EDT) Protein, Total, Random Urine 31(H) <12 mg/dL [facility] 12/10/2024 9:12 AM EDT 12/10/2024 9:45 AM EDT us Generic External Data Provider LAB URINE ORDERAB LES Final Result Performing Organization Address City/Va Hospital/ZIP Co de Phone Number [facility] [address] [place] [phone] * Creatinine, Random Urine (12/10/2024 9:12 AM EDT) Creatinine, Urine 85.29 mg/dL [facility] 12/10/2024 9:12 AM EDT 12/10/2024 9:45 AM EDT Generic External Data Provider LAB URINE ORDERAB LES Final Result Performing Organization Address [facility] Co de Phone Number [facility] [address] [place] [phone] * (ABNORMAL) Urinalysis Complete (12/10/2024 9:12 AM EDT) Color Urine Yellow [facility] Appearance Urine Clear [facility] PH 7.5 5.0 - 9.0 [facility] Glucose Urine UA Negative Negative mg/dL [facility] Urine Blood Negative Negative [facility] Specific [place] - Urine 1.010 1.005 - 1.025 [facility] Urine Protein 30 (1+)(A) Neg-Trace mg/dL [facility] Urine Ketones Negative Negative mg/dL [facility] Nitrite Urine Negative Negative [facility] Leukocyte Esterase Urine Negative Negative [facility] RBC Urine 0-2 0 - 2 /HPF [facility] Urine WBC 0-5 0 - 5 /HPF [facility] Urine Squamous Epithelial Cell 0-2 0 - 2 /HPF [facility] Urine Bacteria None Seen None Seen [facility] Hyaline Casts, Urine 0-2 0 - 2 /LPF [facility] 12/10/2024 9:12 AM EDT 12/10/2024 9:45 AM EDT us Generic External Data Provider LAB URINE ORDERAB LES Final Result Performing Organization Address [facility]/ZIP Co de Phone Number [facility] [address] [place] [phone] * (ABNORMAL) Lipid Panel, Standard (05/23/2024 8:09 AM EST) Triglycerides 127 <150 mg/dL [facility] Comment:Desirable Triglyceri de: less than 150 mg/dLBorderline High Triglyceride 150-199 mg/dLHigh Triglyceride: 200-499 mg/dLVery High Triglyceride: greater than or equal to 5OO mg/dL Cholesterol 153 <200 mg/dL [facility] Comment:Desirable Cholestero l: less than 200 mg/dLBorderline High Cholesterol: 200-239 mg/dLHigh Cholesterol: greater than 239 mg/dL LDL Cholesterol Calculated 97 <100 mg/dL [facility] Comment:Desirable LDL: less than 100 mg/dLNear Optimal/Above Optimal LDL: 110- 129 mg/dLBorderline High LDL: 130-159 mg/dLHigh LDL: 160-189 mg/dLVery High LDL: greater than or equal to 190 mg/dL HDL Cholesterol 31(L) >40 mg/dL [facility] Comment:Desirable HDL: great er than 40 mg/dL Note: This HDL assay may give artificially low results in patients with liver disease. Blood Venous blood specimen / Unknown 05/23/2024 8:09 AM EST 05/23/2024 8:09 AM EST Arsh Holliday MD LAB BLOOD ORDERABLES Final Result Performing Organization Address [facility]/ZIP Co de Phone Number [facility] [address] [place] [phone] * Hepatitis C Antibody Reflex (06/17/2022 10:14 AM EST) Hepatitis C Antibody Nonreactive Nonreactive [facility] Comment:Antibodies to HCV no t detected; does not exclude early acuteHCV infection. 06/17/2022 10:1 4 AM EST 06/17/2022 10:14 AM EST [facility] External Provider LAB BLO OD ORDERABLES Final Result [facility] [address] [place] [phone] * Hm Colonoscopy (06/11/2020 8:26 AM EST) Colonoscopy Normal Normal us Historical Provider HEALTH MAINTENANCE Edited Result - Final from Last 3 Months or Most Recently Relevant to Health Maintenance Insurance [facility] STANDARD MEDICARE DENTAL-[facility] MEDICAID STAND ADULT Care Teams Creative Perfumer Relationship Specialty Start Date End Date Arsh Gamez MD [address] [place] [phone] PCP - General Internal Medicine 12/18/13
--- OUTSIDE RECORDS SUMMARY | 2025-01-21 11:03 | XMS_ITS | Encounter Summary ---
Author Organization [facility] Address [address] [place] [phone] Phone Care Team Providers Care Corporate Receptionist Name Role Phone Arsh Torres MD Primary Care Provide r Encounter Details Date Type Department Care Team (Late st Contact Info) Description 03/01/2019 Ancillary Orders [facility], X-Ray - [address] [address] Arsh Torres MD [address] [place] [phone] [email or web address] Social History Tobacco Use Types Packs/Day [...] on filedocumented in this encounter Care Teams Corporate Receptionist Relationship Specialty Start Date End Date Arsh Torres MD [address] [place] [phone] [email or web address] PCP - General 03/03/17 documented as of this encounter Additional Source Comments The information contained in this document represents components of the legal health record. It is not the complete legal health record.[facility]
--- OUTSIDE RECORDS SUMMARY | 2025-01-21 11:03 | XMS_ITS | Encounter Summary ---
Author Organization [employer] Address [address] [facility] [address] [place] [address] Care Team Providers Care Spa Experience Coordinator Name Role Phone Arsh Gamez MD Primary Care Provide r Reason for Visit * Reason Onset Date Comments Results 03/27/2024 Encounter Details Date Type Department Care Team ([facility] Contact Info) Description 03/27/2024 Telephone [facility] MEDICINE [address], [place] [phone] Arsh Gamez MD [address] [place], [place] [phone] Results Social History Tobacco Use Types Packs/Day [...] 8:00 AM EST Office Visit [facility] ADULT DENTAL [address] [place] [address] Mari Bloom documented as of this encounter Visit Diagnoses Not on filedocumented in this encounter Additional Health Concerns Assessment Noted Time PHQ-9 Depression Total Score: 0 09/29/19 9:32 AM EDT documented as of this encounter Care Teams Spa Experience Coordinator Relationship Specialty Start Date End Date Arsh Gamez MD [address] [place] [address] PCP - General Internal Medicine 12/18/13 documented as of this encounter
--- OUTSIDE RECORDS SUMMARY | 2025-01-21 11:03 | XMS_ITS | Encounter Summary ---
Author Organization [facility] Address [address] [place] [phone] Phone Care Team Providers Care Deck Mate Name Role Phone Arsh Torres MD Primary Care Provide r Encounter Details Date Type Department Care Team (Late st Contact Info) Description 02/23/2019 Ancillary Orders [facility], X-Ray - [address] [place] [address] Arsh Torres MD [address] [place] [address] [address] [place] [phone] [email or web address] Left knee pain, unspecified [...] chronicity documented in this encounter Care Teams Deck Mate Relationship Specialty Start Date End Date Arsh Torres MD [address] [facility] [address] [place] [phone] [email or web address] PCP - General 03/03/17 documented as of this encounter Additional Source Comments The information contained in this document represents components of the legal health record. It is not the complete legal health record.[facility]
--- OUTSIDE RECORDS SUMMARY | 2025-01-21 11:03 | XMS_ITS | Clinical Summary ---
Author Organization [facility] Address [address] [place] [address] Phone Care Team Providers Care Body Shop Estimator Name Role Phone Arsh Torres MD Primary [...] coronary syndromes including unstable or severe angina, HI within 1 month, severe CHF, high grade [...] EDT): Patient follows with nephrology at the [facility] in [place] for CKD stage 2, nephrolithiasis, renal cysts, [...] this topic Medical Devices Implanted Type Area Automobile Travel Club Counselor Device Identifier Shelf Expiration Date Model / Serial / Lot Tray Tibial Knee [place] Aoy Rt Medial Size B - [id number] Implanted:Qty: 1 on 09/28/2022 by Andrew Huntley MD at [employer] STANDARD Right: Knee [employer] 12/10/2031 [id number] / / [id number] Knee Bearing 4mm Sm Tibial [place] Ar[place] Polyethylene Anatomic Meniscal Rt - [id number] Implanted:Qty: 1 on 09/28/2022 by Andrew Huntley MD at [employer] STANDARD Right: Knee [employer] 04/30/2024 [id number] / / [id number] Screw In Back Knee Implant Small Component Femoral [place] Alloy Twin Pegged Cemented Partial - [id number] Implanted:Qty: 1 on 09/28/2022 by Andrew Huntley MD at [employer] Right: Knee [employer] 05/02/2032 [id number] / / [id number] Bone Cement Antibiotic Refobacin - [id number] Implanted:Qty: 1 on 09/28/2022 by Andrew Huntley MD at [employer] Right: Knee [employer] 12/13/2024 [id number] / / [id number] Procedures Procedure Name Priority Date/Time Associated Diagnosis Comments HEMOGLOBIN A1C Routine 08/02/2023 4:07 PM EDT Type 2 diabetes mellitus with other specified complication, unspecified whether intermediate designer insulin use BASIC METABOLIC PANEL Routine 08/02/2023 4:07 PM EDT Primary localized osteoarthrosis of left lower leg LIPID PANEL Routine 05/25/2023 7:40 AM EST Type 2 diabetes mellitus with other specified complication, unspecified whether intermediate designer insulin use from Last 3 Months or Most Recently Relevant to Health Maintenance Results * (ABNORMAL) Hemoglobin A1c (08/02/2023 4:07 PM EDT) HEMOGLOBIN A1C 6.5(H) 4.3 - 5.8 % [facility] Blood 08/02/2023 4:07 PM EDT 08/02/2023 4:13 PM EDT us nAdrew Huntley MD LAB BLOOD ORDERABLES Final Re sult [facility] [address] [place] [address] * (ABNORMAL) Basic metabolic panel (08/02/2023 4:07 PM EDT) SODIUM 139 133 - 146 mmol/L [facility] CHLORIDE 102 96 - 108 mmol/L [facility] POTASSIUM 3.8 3.3 - 5.1 mmol/L [facility] CO2 26 21 - 35 mmol/L [facility] BUN 20(H) 6 - 19 mg/dL [facility] CREATININE 1.10 0.5 - 1.5 mg/dL [facility] GLUCOSE 109(H) 70 - 99 mg/dL [facility] CALCIUM 9.2 8.4 - 10.3 mg/dL [facility] EGFR 75 >59 mL/min/1.7 3m2 [facility] Comment:Estimated glomerular filtration rate calculated using the CKD-EPI refit equation. ANION GAP 15 10 - 20 mmol/L [facility] Blood 08/02/2023 4:07 PM EDT 08/02/2023 4:13 PM EDT us Andrew Huntley MD LAB BLOOD ORDERABLES Final Re sult [address] [address] * (ABNORMAL) Lipid panel (05/25/2023 7:40 AM EST) HDL 27 mg/dL [facility] Comment: Interpretation <40 mg/dL: Low HDL cholesterol (major risk factor for CHD) Greater than or equal to 60 mg/dL: High HDL cholesterol ( negative risk factor for CHD) HDL - cholesterol is affected by a number of factors, e.g. smoking, excerise, hormones, sex and age. CHOLESTEROL 179 0 - 240 mg/dL [facility] TRIGLYCERIDES 399(H) 30 - 160 mg/dL [facility] LDL 72 50 - 129 mg/dL [facility] Comment: LDL levels in terms of risk for coronary heart disease: <100 mg/dL: Optimal 100-129 mg/dL: Near or above optimal 130-159 mg/dL: Borderline high 160-189 mg/dL: High >190 mg/dL: Very High CARDIAC RISK RATIO 6.6(H) 3.4 - 5.0 [facility] Blood 05/25/2023 7:40 AM EST 05/25/2023 7:42 AM EST us Sonu Campbell DO LAB BLOOD ORDERABLES Final Re sult [facility] [address] [place] [address] from Last 3 Months or Most Recently Relevant to Health Maintenance Insurance MEDICARE PART A & B [facility] MEDICARE PART A & B MEDICARE PART A & B MEDICARE PART A & B MEDICARE PART A & B MEDICARE [place] & [place] B [facility] MEDICARE PART A & B [facility] [place] INSURANCE MEDICARE PART A & B Advance Directives For more information, please contact: [phone] (9AM - 5PM [facility], Tuesday-Tuesday) * Full Code (Presumed) (Latest Code Status on File) Date Activated Date Inactivated Comments 05/24/2017 9:48 AM 05/24/2017 7:05 PM Care Teams Body Shop Estimator Relationship Specialty Start Date End Date Arsh Torres MD [address] [place] [address] [address] [place] [phone] PCP - General 03/03/17 Additional Source Comments The information contained in this document represents components of the legal health record. It is not the complete legal health record.[facility]
--- OUTSIDE RECORDS SUMMARY | 2025-01-21 11:03 | XMS_ITS | Encounter Summary ---
Author Organization [employer] Address 75 [facility] 7t [place] [address] Care Team Providers Care Culvert Installer Name Role Phone Arsh Gamez MD Primary Care Provide r Reason for Visit * Reason Onset Date Comments Referral 01/10/2025 Encounter Details Date Type Department Care Team ([facility] st Contact Info) Description 01/10/2025 Telephone [facility] MEDICINE [address] [place], [place] [phone] Arsh Gamez MD 230 [place], [place] [phone] Referral Social History Tobacco Use Types Packs/Day [...] from pt requesting a referral for gastroenterology. [facility] Phone number [phone] documented in this encounter Plan of Treatment Upcoming Encounters Date Type Department Care Team (Late st Contact Info) Description 06/13/2025 8:00 AM EST Office Visit [facility] ADULT DENTAL [address] [place] [address] Mari Bloom documented as of this encounter Visit Diagnoses Not on filedocumented in this encounter Additional Health Concerns Assessment Noted Time PHQ-9 Depression Total Score: 0 12/19/19 25 8:55 AM EDT documented as of this encounter Care Teams Culvert Installer Relationship Specialty Start Date End Date Arsh Gamez MD [address] [place] [phone] PCP - General Internal Medicine 12/18/13 documented as of this encounter
--- OUTSIDE RECORDS SUMMARY | 2025-01-21 11:03 | XMS_ITS | Encounter Summary ---
Author Organization [facility] Address [address] [place] [phone] Phone Care Team Providers Care E Learning Developer Name Role Phone Arsh Torres MD Primary Care Provide r Encounter Details Date Type Department Care Team (Latest Contact Info) Description 06/16/2021 Transcribe Orders [facility] [address] [place] [address] Dr Lee BETTY [address] Della Lopez [place] [address] [address] [email or web address] BPH without obstruction/lower urinary tract symptoms (Primary [...] EST) PSA 1.33 0 - 4.00 ng/mL [facility] Blood 06/16/2021 9:38 AM EST 06/16/2021 9:40 AM EST us Della WEEKS LAB BLOOD ORDERABLES Final Resul t [facility] [address] [place] [address] documented in this encounter Visit Diagnoses Diagnosis BPH without obstruction/lower urinary tract symptoms- Primary Screening for prostate cancer Special screening for malignant neoplasm of prostate documented in this encounter Care Teams E Learning Developer Relationship Specialty Start Date End Date Arsh Torres MD [address] [place] [address] [address] [place] [phone] PCP - General 03/03/17 documented as of this encounter Additional Source Comments The information contained in this document represents components of the legal health record. It is not the complete legal health record.[facility]
--- OUTSIDE RECORDS SUMMARY | 2025-01-21 11:03 | XMS_ITS | Encounter Summary ---
Author Organization [employer] Address 75 [facility] 7t [place] [address] Care Team Providers Care Training Associate Name Role Phone Arsh Gamez MD Primary Care Provide r Reason for Visit * Reason Onset Date Comments rescheduled appt mistakenly cancelled 05/17/2024 Encounter Details Date Type Department Care Team (Late st Contact Info) Description 05/17/2024 Telephone [facility] ADULT DENTAL [address] [place], [place] [phone] Nickie, Sheyla [address] [place] [address] rescheduled appt mistakenly cancelled Social History Tobacco [...] Description 06/13/2025 8:00 AM EST Office Visit [facility] ADULT DENTAL [address] [place] [address] Mari Bloom documented as of this encounter Visit Diagnoses Not on filedocumented in this encounter Additional Health Concerns Assessment Noted Time PHQ-9 Depression Total Score: 0 09/29/19 24 9:32 AM EDT documented as of this encounter Care Teams Training Associate Relationship Specialty Start Date End Date Arsh Gamez MD 230 [place] [address] PCP - General Internal Medicine 12/18/13 documented as of this encounter
--- OUTSIDE RECORDS SUMMARY | 2025-01-21 11:03 | XMS_ITS | Encounter Summary ---
Author Organization [employer] Address [address] [facility] [address] 7t [place] [address] Care Team Providers Care Academic Support Assistant Name Role Phone Arsh Gamez MD Primary Care Provide r Reason for Visit * Reason Comments Med Refill Encounter Details Date Type Department Care Team ([facility] st Contact Info) Description 07/07/2024 Refill [facility] 230 [place], [place] [phone] Arsh Gamez MD 230 [place], [place] [phone] Benign prostatic hyperplasia with urinary frequency Social [...] Description 06/13/2025 8:00 AM EST Office Visit [facility] ADULT DENTAL [address] [place] [address] Mari Bloom documented as of this encounter Visit Diagnoses Diagnosis Benign prostatic hyperplasia with urinary frequency documented in this encounter Additional Health Concerns Assessment Noted Time PHQ-9 Depression Total Score: 0 09/29/19 24 9:32 AM EDT documented as of this encounter Care Teams Academic Support Assistant Relationship Specialty Start Date End Date Arsh Gamez MD 230 [place] [address] PCP - General Internal Medicine 12/18/13 documented as of this encounter
--- OUTSIDE RECORDS SUMMARY | 2025-01-21 11:03 | XMS_ITS | Encounter Summary ---
Author Organization [employer] Address 75 [facility] 7t [place] [address] Care Team Providers Care English As A Second Language Instructor Name Role Phone Arsh Gamez MD Primary Care Provide r Reason for Visit * Reason Comments Med Refill Encounter Details Date Type Department Care Team ([facility] st Contact Info) Description 04/06/2024 Refill [facility] ADULT DENTAL [address] [place], [place] [phone] Power Davis, OLIVA 230 [place] [address] Social History Tobacco Use Types Packs/Day Years [...] [facility] ADULT [facility] [address] [place] [address] Mari Bloom documented as of this encounter Visit Diagnoses Not on filedocumented in this encounter Additional Health Concerns Assessment Noted Time PHQ-9 Depression Total Score: 0 09/29/19 24 9:32 AM EDT documented as of this encounter Care Teams English As A Second Language Instructor Relationship Specialty Start Date End Date Arsh Gmaez MD 230 [place] [address] PCP - General Internal Medicine 12/18/13 documented as of this encounter
--- OUTSIDE RECORDS SUMMARY | 2025-01-21 11:04 | XMS_ITS | Encounter Summary ---
Author Organization [employer] Address 75 [facility] 7t [place] [address] Care Team Providers Care Bracelet Form Coverer Name Role Phone Arsh Gamez MD Primary Care Provide r Reason for Visit * Reason Comments Med Refill Encounter Details Date Type Department Care Team ([facility] st Contact Info) Description 09/30/2024 Refill [facility] MEDICINE 230 [place], [place] [phone] Arsh Gamez MD 230 [place], [place] [phone] Social History Tobacco Use Types Packs/Day Years [...] Description 06/13/2025 8:00 AM EST Office Visit [facility] ADULT DENTAL 230 [place] [address] Mari Bloom documented as of this encounter Visit Diagnoses Not on filedocumented in this encounter Additional Health Concerns Assessment Noted Time PHQ-9 Depression Total Score: 0 09/29/19 24 9:32 AM EDT documented as of this encounter Care Teams Bracelet Form Coverer Relationship Specialty Start Date End Date Arsh Gamez MD 230 [place] [address] PCP - General Internal Medicine 12/18/13 documented as of this encounter
--- OUTSIDE RECORDS SUMMARY | 2025-01-21 11:04 | XMS_ITS | Encounter Summary ---
Author Organization [employer] Address [address] [facility] [address] 7t [place] [address] Care Team Providers Care Manager Appointment Name Role Phone Arsh Gamez MD Primary Care Provide r Reason for Visit * Reason Comments Med Refill Encounter Details Date Type Department Care Team ([facility] st Contact Info) Description 06/24/2023 Refill [facility] [address] [place], [place] [phone] Arsh Gamez MD 230 [place] [address] Pain Social History Tobacco Use Types Packs/Day [...] Description 06/13/2025 8:00 AM EST Office Visit [facility] ADULT DENTAL 230 [place] [address] Mari Bloom documented as of this encounter Visit Diagnoses Diagnosis Pain Generalized pain documented in this encounter Care Teams Manager Appointment Relationship Specialty Start Date End Date Arsh Gamez MD [address] [place] [address] PCP - General Internal Medicine 12/18/13 documented as of this encounter
--- OUTSIDE RECORDS SUMMARY | 2025-01-21 11:04 | XMS_ITS | Encounter Summary ---
Author Organization [facility] Address [address] [place] [address] Phone Care Team Providers Care Director Translational Name Role Phone Arsh Sharif MD Primary Care Provider [phone] Encounter Details Date Type Department Care Team (Late st Contact Info) Description 06/29/2022 Telephone [facility] [address] [place] [address] Sarah Phelps Social History Tobacco [...] that the hospital performing the[facility] in [place] needs the clearance two months before his surgery date in September. Surgery is for his right knee. documented in this encounter Plan of Treatment Not on file documented as of this encounter Visit Diagnoses Not on filedocumented in this encounter Care Teams Director Translational Relationship Specialty Start Date End Date Arsh Sharif MD [address] [place] [phone] PCP - General Internal Medicine 08/24/21 documented as of this encounter
--- OUTSIDE RECORDS SUMMARY | 2025-01-21 11:04 | XMS_ITS | Encounter Summary ---
Author Organization [employer] [facility] Address 75 [facility] 7t [place] [address] Care Team Providers Care Telesales Professional Name Role Phone Arsh Gamez MD Primary Care Provide r Encounter Details Date Type Department Care Team (Latest Contact Info) Description 07/09/2019 Abstract [facility] CONVERSIONS Dental, Provider, DDS Social History Tobacco [...] Description 06/13/2025 8:00 AM EST Office Visit [facility] ADULT DENTAL 230 [place] [address] Mari Bloom documented as of this encounter Visit Diagnoses Not on filedocumented in this encounter Care Teams Telesales Professional Relationship Specialty Start Date End Date Arsh Gamez MD 230 [place], [place] [phone] PCP - General Internal Medicine 12/18/13 documented as of this encounter
--- OUTSIDE RECORDS SUMMARY | 2025-01-21 11:04 | XMS_ITS | Encounter Summary ---
Author Organization [facility] Address [address] [place] [phone] Phone Care Team Providers Care Medical Receptionist Name Role Phone Arsh Torres MD Primary Care Provide r Encounter Details Date Type Department Care Team (Late st Contact Info) Description 09/28/2022 Procedure Pass OR Admitting Dept - Virtual Department [address] [place] [address] Social History Tobacco Use Types Packs/Day Years [...] filedocumented in this encounter Care Teams Medical Receptionist Relationship Specialty Start Date End Date Arsh Torres MD [address] [place] [address] [address] [place] [phone] [email or web address] PCP - General 03/03/17 documented as of this encounter Additional Source Comments The information contained in this document represents components of the legal health record. It is not the complete legal health record.[facility]
--- OUTSIDE RECORDS SUMMARY | 2025-01-21 11:04 | XMS_ITS | Encounter Summary ---
Author Organization [employer] Address [address] [facility] 7t [place] [address] Care Team Providers Care Material Expediter Name Role Phone Arsh Gamez MD Primary Care Provide r Encounter Details Date Type Department Care Team (Late st Contact Info) Description 06/14/2022 Orders Only [facility]EDS [address] [place] [address] Sarah Pineda LPN Social History Tobacco Use [...] much Not at all 06/17/2022 9:13 AM Kla Quiñonez [place] Feeling tired or having aaron [...] Description 06/13/2025 8:00 AM EST Office Visit [facility] ADULT DENTAL 230 [place] [address] Mari Bloom documented as of this encounter [...] EST documented in this encounter Results * [place]/Lambda Light Chains, Free with Ratio (06/17/2022 10:30 AM EST) [place] Light Chain, Free, Serum 303 176 - 443 mg/dL [facility] Lambda Light Chain, Free, Serum 163 91 - 240 mg/dL [facility] [place]/Lambda Light Chains Free With Ratio, Serum 1.86 1.29 - 2.55 [facility] Comment:This assay provides a measurement [...] myeloma, lymphoproliferative disorders, andamyloidosis.THIS TEST WAS PERFORMED AT:[email or web address] [id number] [facility] [place] [place] [address]QJSFJDELMA SINGER MD,PHD,ADRIENNE 06/17/2022 10:3 0 AM EST 06/18/2022 4:58 PM EST us [facility] External Provider LAB BLO OD ORDERABLES Final Result [facility] [address] [place] [address] [phone] * Albumin, Random Urine W/Creatinine (06/17/2022 10:30 AM EST) Creatinine, Urine 123.67 mg/dL [facility] Microalbumin Urine 42.0 mg/L [facility] Microalbum Creatinine Ratio Ur 33.9 ug/mg cr [facility] Comment:Albumin/Creatinine R atio Reference Ranges: Normal: < 30 ug/mg creatinine Microalbuminuria: 30 - 300 ug/mg creatinineClinical Albuminuria: > 300 ug/mg creatinine 06/17/2022 10:3 0 AM EST 06/17/2022 11:33 AM EST us [facility] External Provider LAB URI NE ORDERABLES Final Result [facility] [address] [place] [phone] * Protein Electrophoresis and Total Protein, Random Urine (06/17/2022 10:15 AM EST) PEU-Random Urine Creatinine 121 20 - 320 mg/dL [facility] PEU-Random Urine Protein 14 5 - 25 mg/dL [facility] PEU-[place] Bar. Prot/Creat Ratio 116 25 - 148 mg/g creat [facility] PEU-Random Urine Albumin 100 % [facility] PEU-Random Urine A1 Globulin 0 % [facility] PEU-Random Urine A2 Globulin 0 % [facility] PEU-Random Urine Beta Globulin 0 % [facility] PEU-Random Ur. Gamma Globulin 0 % [facility] PEU Ran-Abn Protein Band 1 TNP [facility] PEU Ran-Abn Protein Band 2 TNP [facility] PEU Ran-Abn Protein Band 3 [facility] PEU-Random Urine Interpret. SEE NOTE [facility] Comment:Normal PatternTHIS T EST WAS PERFORMED AT:[employer] [address] (NL1)[place] [address]UYSHCTERRY JASON MD Protein/Creatini ne Ratio 0.116 0.025 - 0.148 [facility] Comment:Result Units: mg/mg creat 06/17/2022 10:1 5 AM EST 06/18/2022 3:03 PM EST [facility] External Provider LAB URI NE ORDERABLES Final Result Performing Organization Address [facility] de Phone Number [facility] [address] [place] [phone] * Immuniofixation, Urine (06/17/2022 10:15 AM EST) [facility] DELVIN Interpretation [facility] Comment:No monoclonal protei ns detected.THIS TEST WAS PERFORMED AT:[employer] [address] ([address] [phone] JASON MD 06/17/2022 10:1 5 AM EST 06/18/2022 3:03 PM EST [facility] External Provider LAB URI NE ORDERABLES Final Result Performing Organization Address [facility] Number [facility] [address] [place] [phone] * Hepatitis C Viral RNA, Quantitative, Real-Time PC (06/17/2022 10:14 AM EST) [facility] Hepatitis C Viral Load <15 NOT DETECTED NOT DETECTED IU/mL [facility] HCV Log PCR <1.18 NOT DETECTED NOT DETECTED Log IU/mL [facility] Comment:This test was perfor med using Real-Time Polymerase ChainReaction.Reportable Range: 15 IU/mL to 100,000,000 IU/mL(1.18 Log IU/mL to 8.00 Log IU/mL).The analytical performance characteristics of thisassay have been determined by [employer] ([employer]).The modifications have not been cleared or approved bythe FDA. This assay has been validated pursuant to theCLIA regulations and is used for clinical purposes.For more information on this test, go to:http://education.Namshi/faq/GCQ88l3(This link is being provided for informational/educational purposes only.)THIS TEST WAS PERFORMED AT:[employer] [place] [address] (1)[place] [address]TXXFETERRY JASON MD 06/17/2022 10:1 4 AM EST 06/17/2022 10:14 AM EST [facility] External Provider LAB BLO OD ORDERABLES Final Result [facility] [address] [place] [phone] * Protein Electrophoresis and [place]/Lambda Light Chains (06/17/2022 10:14 AM EST) Prot Elec - Total Protein 7.2 6.1 - 8.1 g/dL [facility] Prot Elec - Albumin 4.2 3.8 - 4.8 g/dL [facility] Prot Elec - Alpha1 0.3 0.2 - 0.3 g/dL [facility] Prot Elec - Alpha2 0.6 0.5 - 0.9 g/dL [facility] Prot Elec - Beta 1 0.5 0.4 - 0.6 g/dL [facility] Prot Elec - Beta 2 0.4 0.2 - 0.5 g/dL [facility] Prot Elec - Gamma 1.2 0.8 - 1.7 g/dL [facility] PES - Abn Protein Band 1 TNP [facility] PES-Abn Protein Band 2 [facility] PES-Abn Protein Band 3 [facility] Prot Elec - Interpretation SEE NOTE [facility] Comment:Normal Electrophoret ic PatternTHIS TEST WAS PERFORMED AT:[employer] [place] [address] (NL1)[place] [address]TQWEDTERRY JASON MD 06/17/2022 10:1 4 AM EST 06/17/2022 10:14 AM EST [facility] External Provider LAB BLO OD ORDERABLES Final Result Performing Organization Address [facility] Phone Number [facility] [address] [place] [phone] * (ABNORMAL) Immunofixation, Serum (06/17/2022 10:14 AM EST) [facility] IMMUNOGLOBULIN G 1189 600 - 1540 mg/dL [facility] IMMUNOGLOBULIN A 355(A) 70 - 320 mg/dL [facility] Immunoglobulin M 145 50 - 300 mg/dL [facility] Comment:THIS TEST WAS PERFOR MED AT:[employer] [place] [address] (1)[place] [address]XPJXGTERRY JASON MD Immunofixation Result SEE NOTE [facility] Comment:Normal pattern. No m onoclonal proteins detected. 06/17/2022 10:1 4 AM EST 06/18/2022 2:59 PM EST [facility] External Provider LAB BLO OD ORDERABLES Final Result Performing Organization Address [facility] Number [facility] [address] [place] [phone] * Hepatitis C Antibody Reflex (06/17/2022 10:14 AM EST) [facility] Hepatitis C Antibody Nonreactive Nonreactive [facility] Comment:Antibodies to HCV no t detected; does not exclude early acuteHCV infection. 06/17/2022 10:1 4 AM EST 06/17/2022 10:14 AM EST [facility] External Provider LAB BLO OD ORDERABLES Final Result Performing Organization Address [facility] Co de Phone Number [facility] [address] [place] [phone] * Lipid Panel with Reflex to Direct LDL (06/17/2022 10:14 AM EST) Triglycerides 154 mg/dL [facility] Comment:Desirable Triglyceri de: less than 150 mg/dLBorderline High Triglyceride 150-199 mg/dLHigh Triglyceride: 200-499 mg/dLVery High Triglyceride: greater than or equal to 5OO mg/dL Cholesterol 176 mg/dL [facility] Comment:Desirable Cholestero l: less than 200 mg/dLBorderline High Cholesterol: 200-239 mg/dLHigh Cholesterol: greater than 239 mg/dL LDL Cholesterol Calculated 119 mg/dl [facility] Comment:Desirable LDL: less than 100 mg/dLNear Optimal/Above Optimal LDL: 110- 129 mg/dLBorderline High LDL: 130-159 mg/dLHigh LDL: 160-189 mg/dLVery High LDL: greater than or equal to 190 mg/dL HDL Cholesterol 27 mg/dL [facility] Comment:Desirable HDL: great er than 40 mg/dL Note: This HDL assay may give artificially low results in patients with liver disease. 06/17/2022 10:1 4 AM EST 06/17/2022 10:14 AM EST us [facility] External Provider LAB BLO OD ORDERABLES Final Result [facility] [address] [place], [place] [phone] * (ABNORMAL) Basic Metabolic Panel (06/17/2022 10:14 AM EST) Sodium 139 135 - 145 mmol/L [facility] Potassium 4.1 3.3 - 5.1 mmol/L [facility] Chloride 107 96 - 108 mmol/L [facility] Carbon Dioxide 25 22 - 29 mmol/L [facility] Anion Gap 11(L) 12 - 20 [facility] Urea Nitrogen (BUN) 19(H) 9 - 16 mg/dL [facility] Creatinine, Serum 1.20 0.5 - 1.4 mg/dL [facility] Estimated Glomerular Filt Rate >60 [facility] Comment:NOTE: For -Am erican individuals, multiply the result by 1.210.Chronic Kidney Disease: Estimated GFR < 60 mL/min/1.36b0Cytjfk Kidney Disease: Estimated GFR < 15 mL/min/1.73m2 Glucose 93 60 - 115 mg/dL [facility] Calcium 9.2 8.4 - 10.2 mg/dL [facility] 06/17/2022 10:1 4 AM EST 06/17/2022 10:14 AM EST us [facility] External Provider LAB BLO OD ORDERABLES Final Result [facility] [address] [place] [phone] * CBC (06/17/2022 10:14 AM EST) White Blood Count 5.9 4.8 - 10.8 X10*3/uL [facility] Red Blood Count 5.41 4.60 - 5.80 X10*6/uL [facility] Hemoglobin 15.7 14.0 - 18.0 g/dl [facility] Hematocrit 45.5 42.0 - 52.0 % [facility] Mean Corpuscular Volume 84.1 80.0 - 98.0 fL [facility] Mean Corpuscular Hemoglobin 29.0 27.0 - 33.0 pg [facility] Mean Corpuscular HGB Conc 34.5 31.0 - 36.0 g/dl [facility] Red Cell Distribution Width 13.7 11.0 - 16.0 % [facility] Platelet Count 209 160 - 400 X10*3/uL [facility] Mean Platelet Volume 9.9 9.4 - 12.4 fL [facility] NRBC Pct Auto 0.0 0.0 - 0.2 /100WBC [facility] NRBC Abs Auto 0.000 0.0 - 0.012 X10*3/uL [facility] 06/17/2022 10:1 4 AM EST 06/17/2022 10:14 AM EST us [facility] External Provider LAB BLO OD ORDERABLES Final Result [facility] [address] [place] [phone] documented in this encounter Visit Diagnoses Not on filedocumented in this encounter Care Teams Material Expediter Relationship Specialty Start Date End Date Arsh Gamez MD [address] [place] [phone] PCP - General Internal Medicine 12/18/13 documented as of this encounter
--- OUTSIDE RECORDS SUMMARY | 2025-01-21 11:04 | XMS_ITS | Encounter Summary ---
Author Organization [employer] Address [address] [facility] 7t [place] [address] Care Team Providers Care Twister Operator Name Role Phone Arsh Gamez MD Primary Care Provide r Reason for Visit * Reason Onset Date Comments Med Refill 10/09/2024 Encounter Details Date Type Department Care Team ([facility] st Contact Info) Description 10/09/2024 Telephone [facility] MEDICINE 230 [place], [place] [phone] Arsh Gamez MD 230 [place], [place] [phone] Med Refill Social History Tobacco Use Types [...] 15 MG tablet To be sent to: [facility]/pharmacy #[id number] [place], [place] - [address] [place] [address] AT NEXT TO [facility] documented in this encounter Plan of Treatment Upcoming Encounters Date Type Department Care Team (Late st Contact Info) Description 06/13/2025 8:00 AM EST Office Visit [facility] ADULT DENTAL 230 [place] [address] Mari Bloom documented as of this encounter Visit Diagnoses Not on filedocumented in this encounter Additional Health Concerns Assessment Noted Time PHQ-9 Depression Total Score: 0 09/29/19 24 9:32 AM EDT documented as of this encounter Care Teams Twister Operator Relationship Specialty Start Date End Date Sharif Mg, Arsh, MD 230 [place] [address] PCP - General Internal Medicine 12/18/13 documented as of this encounter
--- OUTSIDE RECORDS SUMMARY | 2025-01-21 11:04 | XMS_ITS | Encounter Summary ---
Author Organization [employer] [facility] Address [address] [facility] 7t [place] [address] Care Team Providers Care Hand Binder Cutter Name Role Phone Arsh Gamez MD Primary Care Provide r Encounter Details Date Type Department Care Team (Late Contact Info) Description 09/23/2022 Abstract [facility] MEDICINE 230 [place], [place] [phone] Arsh Gamez MD 230 [place], [place] [phone] Social History Tobacco Use Types Packs/Day Years [...] Description 06/13/2025 8:00 AM EST Office Visit [facility] ADULT DENTAL 230 [place], [place] [phone] Mari Bloom documented as of this encounter Visit Diagnoses Not on filedocumented in this encounter Care Teams Hand Binder Cutter Relationship Specialty Start Date End Date Arsh Gamez MD 230 [place] [address] PCP - General Internal Medicine 12/18/13 documented as of this encounter
--- OUTSIDE RECORDS SUMMARY | 2025-01-21 11:04 | XMS_ITS | Encounter Summary ---
Author Organization [employer] [facility] Address [address] [facility] 7t [place] [address] Care Team Providers Care Glazier Stained Glass Name Role Phone Arsh Gamez MD Primary Care Provide r Encounter Details Date Type Department Care Team (Latest Contact Info) Description 05/18/2021 Abstract [facility] CONVERSIONS Dental, Provider, DDS Social History [...] Description 06/13/2025 8:00 AM EST Office Visit [facility] ADULT DENTAL 230 [place] [address] Mari Bloom documented as of this encounter Visit Diagnoses Not on filedocumented in this encounter Care Teams Glazier Stained Glass Relationship Specialty Start Date End Date Arsh Gamez MD 230 [place], [place] [phone] PCP - General Internal Medicine 12/18/13 documented as of this encounter
--- OUTSIDE RECORDS SUMMARY | 2025-01-21 11:04 | XMS_ITS | Encounter Summary ---
Author Organization [facility] Address [address] [facility] 7t [place] [address] Care Team Providers Care [employer]ura Technical Lead Senior Developer Name Role Phone Arsh Gamez MD Primary Care Provide r Encounter Details Date Type Department Care Team (Late st Contact Info) Description 07/16/2022 Abstract [facility] ADULT DENTAL 230 [place] [address] Power Davis DMD 230 [place] [address] Social History Tobacco Use Types Packs/Day Years [...] Description 06/13/2025 8:00 AM EST Office Visit [facility] ADULT DENTAL 230 [place] [address] Mari Bloom documented as of this encounter Visit Diagnoses Not on filedocumented in this encounter Care Teams [employer] Technical Lead Senior Developer Relationship Specialty Start Date End Date Arsh Gamez MD 230 [place] [address] PCP - General Internal Medicine 12/18/13 documented as of this encounter
--- OUTSIDE RECORDS SUMMARY | 2025-01-21 11:04 | XMS_ITS | Encounter Summary ---
Author Organization [employer] Address [address] [facility] [address] 7t [place] [address] Care Team Providers Care Pattern Ruler Name Role Phone Arsh Gamez MD Primary Care Provide r Reason for Visit * Reason Comments Med Refill Encounter Details Date Type Department Care Team ([facility] st Contact Info) Description 12/28/2023 Refill [facility] 230 [place], [place] [phone] Felicita Beasley, ANP 230 [place] [address] Benign prostatic hyperplasia with urinary frequency Social [...] 8:00 AM EST Office Visit [facility] D[facility] 230 [place] [address] Mari Bloom documented as of this encounter Visit Diagnoses Diagnosis Benign prostatic hyperplasia with urinary frequency documented in this encounter Additional Health Concerns Assessment Noted Time PHQ-9 Depression Total Score: 0 09/29/19 24 9:32 AM EDT documented as of this encounter Care Teams Pattern Ruler Relationship Specialty Start Date End Date Arsh Gamez MD 230 [place] [address] PCP - General Internal Medicine 12/18/13 documented as of this encounter
--- OUTSIDE RECORDS SUMMARY | 2025-01-21 11:04 | XMS_ITS | Encounter Summary ---
Author Organization [employer] Address [address] [facility] 7t [place] [address] Care Team Providers Care Preschool Special Education Teacher Name Role Phone Arsh Gamez MD Primary Care Provide r Reason for Visit * Reason Comments Med Refill Encounter Details Date Type Department Care Team ([facility] st Contact Info) Description 06/20/2023 Refill [facility] MEDICINE 230 [place], [place] [phone] Arsh Gamez MD 230 [place], [place] [phone] Pain Social History Tobacco Use Types Packs/Day [...] 06/13/2025 8:00 AM EST Office Visit [facility] ADULT DENTAL 230 [place] [address] Mari Bloom documented as of this encounter Visit Diagnoses Diagnosis Pain Generalized pain documented in this encounter Care Teams Preschool Special Education Teacher Relationship Specialty Start Date End Date Arsh Gamez MD 230 [place] [address] PCP - General Internal Medicine 12/18/13 documented as of this encounter
--- OUTSIDE RECORDS SUMMARY | 2025-01-21 11:04 | XMS_ITS | Encounter Summary ---
Author Organization [facility] Address [address] [place] [address] Phone Care Team Providers Care Instructional Material Director Name Role Phone Arsh Torres MD Primary Care Provide r Encounter Details Date Type Department Care Team (Late st Contact Info) Description 04/12/2022 Procedure Pass [facility], [address] [place] [address] Social History Tobacco Use Types Packs/Day Years [...] on filedocumented in this encounter Care Teams Instructional Material Director Relationship Specialty Start Date End Date Arsh Torres MD 230 [facility] [address] [place] [address] PCP - General 03/03/17 documented as of this encounter Additional Source Comments The information contained in this document represents components of the legal health record. It is not the complete legal health record.[facility]
--- OUTSIDE RECORDS SUMMARY | 2025-01-21 11:04 | XMS_ITS | Encounter Summary ---
Author Organization [employer] [facility] Address [address] [facility] 7t [place] [address] Care Team Providers Care Green Chainer Name Role Phone rAsh Gamez MD Primary Care Provide r Reason for Visit * Reason Onset Date Comments Pre Op 07/19/2022 Appointment Request 07/22/2022 r/s Pre Op Encounter Details Date Type Department Care Team ([facility] st Contact Info) Description 07/19/2022 Telephone [facility] MEDICINE 230 [place] [address] Arsh Gamez MD 230 [place], [place] [phone] Pre Op; Appointment Request (r/s Pre Op [...] am every day. Please contact pt at [phone] * Telephone Encounter - Autumn Ramirez RN [...] 10 am due to him working in [place] for 11am. * Telephone Encounter - Cami Martin RN - 07/19/2022 1:53 PM EST Call to [facility] to inform them of pt's appt. No answer. Left VM with appt details and asked for them to call pt with appointment * Telephone Encounter - Cami Martin RN - 07/19/2022 12:31 PM EST Call from Torrie at [email or web address]. Pt does not needs labs but [...] requesting a Pre Op appt Location : [address] [place] [id number] Procedure : Knee Transplant Labs: does not know EKG: does not know Anesthesia: Does not know Surgeon: does not know documented in this encounter Plan of Treatment Upcoming Encounters Date Type Department Care Team (Late st Contact Info) Description 06/13/2025 8:00 AM EST Office Visit [facility] ADULT DENTAL 230 [place] [address] Mari Bloom documented as of this encounter Visit Diagnoses Not on filedocumented in this encounter Care Teams Green Chainer Relationship Specialty Start Date End Date Arsh Gamez MD 230 [place] [address] PCP - General Internal Medicine 12/18/13 documented as of this encounter
--- OUTSIDE RECORDS SUMMARY | 2025-01-21 11:04 | XMS_ITS | Encounter Summary ---
Author Organization [facility] Address [address] [place] [address] Phone Care Team Providers Care Charrer Name Role Phone Arsh Torres MD Primary Care Provide r Encounter Details Date Type Department Care Team (Late st Contact Info) Description 02/16/2022 Procedure Pass [place] Admitting Dept - Virtual Department 30 [place] [address] Social History Tobacco Use Types Packs/Day Years [...] on filedocumented in this encounter Care Teams Charrer Relationship Specialty Start Date End Date Arsh Torres MD 230 [facility] [address] [place] [phone] PCP - General 03/03/17 documented as of this encounter Additional Source Comments The information contained in this document represents components of the legal health record. It is not the complete legal health record.[facility]
--- OUTSIDE RECORDS SUMMARY | 2025-01-21 11:04 | XMS_ITS | Encounter Summary ---
Author Organization [employer] [facility] Address [address] [place] [address] Phone Care Team Providers Care Communications Designer Name Role Phone Arsh Torres MD Primary Care Provide r Encounter Details Date Type Department Care Team (Latest Contact Info) Description 05/12/2017 Transcribe Orders [facility] LABOR[facility]ORY [address] [place] [address] Dr Lee BETTY [address] Dorian Laughlin MD [address] [place] [phone] [email or web address] Hypertension, unspecified type (Primary Dx); Mass [...] EST) WBC 8.29 3.40 - 11.20 K/uL [facility] RBC 5.79(H) 4.50 - 5.50 M/uL [facility] HGB 17.5(H) 13.0 - 17.0 g/dL [facility] HCT 48.5 40.0 - 51.0 % [facility] PLT 221 130 - 400 K/uL [facility] MCV 83.8 79.0 - 98.0 fL [facility] MCH 30.2 27.0 - 34.8 pg [facility] MCHC 36.1(H) 31.5 - 36.0 g/dL [facility] RDW 12.5 10.8 - 14.6 % [facility] MPV 9.7 9.4 - 12.4 fl [facility] NRBC 0.00 /100 WBCs [facility] ABSOLUTE NRBC 0.00 K/uL [facility] DIFF METHOD Auto [facility] NEUTS 58.7 45.30 - 77.70 % [facility] LYMPHS 27.6 12.30 - 39.70 % [facility] MONOS 9.5 4.10 - 12.80 % [facility] EOS 3.1 0 - 7.2 % [facility] BASOS 0.6 0 - 2.80 % [facility] Granulocytes, immature (%) 0.5 0.0 - 0.9 % [facility] ABSOLUTE NEUTS 4.86 1.40 - 7.70 K/uL [facility] ABSOLUTE LYMPHS 2.29 0.60 - 3.20 K/uL [facility] ABSOLUTE MONOS 0.79(H) 0.11 - 0.59 K/uL [facility] ABSOLUTE EOS 0.26 0.01 - 0.50 K/uL [facility] ABSOLUTE BASOS 0.05 0.00 - 0.08 K/uL [facility] Granulocytes, immature 0.04 0.00 - 0.05 K/uL [facility] Blood 05/12/2017 9:37 AM EST 05/12/2017 9:39 AM EST us Dorian Laughlin MD LAB BLOOD ORDERABLES Danni boucher Result [address] [address] documented in this encounter Visit Diagnoses Diagnosis Hypertension, unspecified type- Primary Mass of joint of right knee documented in this encounter Care Teams Communications Designer Relationship Specialty Start Date End Date Arsh Torres MD [address] [place] [address] [address] [place] [id number] [email or web address] PCP - General 03/03/17 documented as of this encounter Additional Source Comments The information contained in this document represents components of the legal health record. It is not the complete legal health record.[facility]
--- OUTSIDE RECORDS SUMMARY | 2025-01-21 11:04 | XMS_ITS | Encounter Summary ---
Author Organization [employer] Address [address] [facility] 7t [place] [address] Care Team Providers Care Ship Runner Name Role Phone Arsh Gamez MD Primary Care Provide r Reason for Visit * Reason Onset Date Comments Appointment Request 12/30/2023 Encounter Details Date Type Department Care Team ([facility] st Contact Info) Description 12/30/2023 Telephone [facility] MEDICINE 230 [place], [place] [phone] Arsh Gamez MD 230 [place], [place] [phone] Appointment Request Social History Tobacco Use Types [...] Description 06/13/2025 8:00 AM EST Office Visit [facility] ADULT DENTAL 230 [place] [address] Mari Bloom documented as of this encounter Visit Diagnoses Not on filedocumented in this encounter Additional Health Concerns Assessment Noted Time PHQ-9 Depression Total Score: 0 09/29/19 24 9:32 AM EDT documented as of this encounter Care Teams Ship Runner Relationship Specialty Start Date End Date Arsh Gamez MD 230 [place] [address] PCP - General Internal Medicine 12/18/13 documented as of this encounter
--- OUTSIDE RECORDS SUMMARY | 2025-01-21 11:04 | XMS_ITS | Encounter Summary ---
Author Organization [employer] Address [address] [facility] 7t [place] [address] Care Team Providers Care Monitoring And Evaluation Advisor Name Role Phone Arsh Gamez MD Primary Care Provide r Reason for Visit * Reason Onset Date Comments Med Change Request Prior Authorization 03/10/2023 SUMAtriptan (Imitrex) 50 MG tablet Encounter Details Date Type Department Care Team ([facility] st Contact Info) Description 03/10/2023 Refill [facility] MEDICINE 230 [place], [place] [phone] Arsh Gamez MD 230 [place], [place] [phone] Social History Tobacco Use Types Packs/Day Years [...] Description 06/13/2025 8:00 AM EST Office Visit [facility] ADULT DENTAL 230 [place] [address] Mari Bloom documented as of this encounter Visit Diagnoses Not on filedocumented in this encounter Care Teams Monitoring And Evaluation Advisor Relationship Specialty Start Date End Date Arsh Gamez MD 230 [place] [address] PCP - General Internal Medicine 12/18/13 documented as of this encounter
--- OUTSIDE RECORDS SUMMARY | 2025-01-21 11:04 | XMS_ITS | Encounter Summary ---
Author Organization [employer] Address [address] [facility] 7t [place] [address] Care Team Providers Care Memorial Adviser Name Role Phone Arsh Gamez MD Primary Care Provide r Reason for Visit * Reason Comments Med Refill Encounter Details Date Type Department Care Team ([facility] st Contact Info) Description 03/25/2024 Refill [facility] ADULT DENTAL 230 [place], [place] [phone] Rolando Denton, CAT 230 [place] [address] Social History Tobacco Use Types Packs/Day Years [...] 8:00 AM EST Office Visit [facility] ADULT DENTAL 230 [place] [address] Mari Bloom documented as of this encounter Visit Diagnoses Not on filedocumented in this encounter Additional Health Concerns Assessment Noted Time PHQ-9 Depression Total Score: 0 09/29/19 24 9:32 AM EDT documented as of this encounter Care Teams Memorial Adviser Relationship Specialty Start Date End Date Arsh Gamez MD 230 [place] [address] PCP - General Internal Medicine 12/18/13 documented as of this encounter
== END 2025-01-21 10:05 | disposition home or self-care (01) ==
LOC: HO.HKA 09:41
PROVIDERS: PCP Internal Medicine; Visit Provider Internal Medicine Hypertension Specialist
DX: N17.9 Acute kidney failure, unspecified (principal); I10 Essential (primary) hypertension
CPT/HCPCS: 99214

== ENCOUNTER → 2025-01-21 09:40 | Outpatient (BNVA) | payer MEDICARE, MEDICAID, SELFPAY | PROVIDERS: PCP Internal Medicine; Visit Provider Internal Medicine Hypertension Specialist | DX: N17.9 Acute kidney failure, unspecified (principal); I10 Essential (primary) hypertension | CPT/HCPCS: 99212 ==

== ENCOUNTER 2025-01-29 09:28 | Outpatient (AMB) | payer MEDICARE, MEDICAID, SELFPAY ==
--- NOTE | 2025-01-29 09:55 | A.OFFVIS_ITS ---
Intake Visit Reasons: cysto Intake Note: patient presents today for: cystosscopy urology medications: finasteride, tamsulosin blood thinners: none Slitting Machine Feeder Required: Yes Accompanied by: Self / Same As Patient Allergies nut - unspecified (NUTS) Allergy (Intermediate, Verified 01/29/25 09:57) ITCHY THROAT nitroglycerin (NITROGLYCERIN) Adverse Reaction (Unknown, Verified 01/29/25 09:57) HEADACHES BREAD Allergy (Mild, Uncoded 01/29/25 09:57) RUNNY NOSE Lopid Allergy (Unknown, Uncoded 01/29/25 09:57) Unknown nsaids Allergy (Unknown, Uncoded 01/29/25 09:57) Unknown Percocet Allergy (Unknown, Uncoded 01/29/25 09:57) Unknown HPI Comments Details: Naresh is a pleasant male. He is a patient of Dr. Ruiz. He is seen for the following urologic conditions - lower urinary tract symptoms - prostatitis Here for cystoscopy Trilobar crowding Grade 1/2 trabeculation Recommend GreenLight Lower urinary tract symptoms Has been managed with finasteride and Flomax for a number of years Longstanding history of prostate issues previously followed with Dr. Salvador Reports occasional dysuria with debris when urinating MELVA previously noted with boggy prostate Imaging - 06/09 renal ultrasound simple cysts - 01/06 prostate MRI 45 g 9 mm equivocal lesion right mid transition zone reported PI-RADS 2 CT scan enlarged prostate a heterogeneous in attenuation with multiple calcifications PFSH Medical History Prostatitis Hyperlipidemia BPH (benign prostatic hyperplasia) Diabetes 1.5, managed as type 2 HTN (hypertension) Surgical History History of knee surgery Social History Household Members: Spouse, Family and Children Housing: Apartment Do you presently have visiting nurse or other home services: No Patient Tobacco Use Status: Never used Tobacco e-Cigarette/Vaping Use: Never Used service: No Review of Systems Const Denies chills and Denies fever(s) Card Reports no additional complaints and Denies syncope Resp Denies cough GI Denies abdominal pain and Denies heartburn Reports as per HPI and Denies change in libido Neuro Denies syncope Psych Denies change in libido Endo Denies change in libido Physical Exam Const General: cooperative, healthy appearing, comfortable and no acute distress Orientation/consciousness: patient oriented x3 HEENT Face and sinus: Yes normal facial exam Mouth: moist mucous membranes Neck Neck: Yes normal visual inspection, Yes full ROM and Yes trachea midline Chest Chest palpation & inspection: normal inspection of the chest Resp Effort & Inspection: normal respiratory effort, able to speak in complete sentences and no respiratory distress GI Inspection: Yes normal to inspection Back/Spine/Pelvis Cervical Spine: normal cervical lordosis Thoracic/Lumbar Spine: thoracic and lumbar spine normal to inspection Skin General skin exam: no rashes or lesions noted Neuro General: patient oriented x3, gait normal, tone normal and moves all extremities Extrem General: Yes normal to inspection and Yes capillary refill normal Office Procedures Cystoscopy Consent Discussed risk and benefit or proposed procedure with the patient. Information consent for procedure given to the patient. Discussed technical aspects, risks, benefits and alternatives in full. Addressed all of the patient's questions and concerns regarding the procedure. The patient demonstrated knowledge and understanding. They wish to proceed with this procedure. Preparation The patient was prepped in the usual manner. A logistics planner was present and in the room. Genitalia was prepped with betadine solution in a sterile manner. Lidocaine Jelly 2% was placed into the urethra and 16Fr flexible Olympus cystoscope was inserted into the meatus after adequate lubrication. Cystoscopy performed using a disposable Urovue digital 16 Serbian cystoscope. Meatus circumcised Urethra anterior and posterior urethra normal Prostatic Urethra trilobar hyperplasia Bladder examination with retroflexion of cystoscope Bladder Orifices normal shape and position Bladder Capacity Normal Trabeculations grade 1 Cellule Formation None Diverticulum Formation None Mucosal Erythema None Bladder Tumor None [id number] DISPOSABLE SCOPE URO-G FLEXIBLE SCOPE Procedure code (CPT) selection complete Office Meds lidocaine HCl 2 % mucosal jelly in applicator Performing Provider: Bolivar Chacon MD Performing Location: [facility] Administered by: Any Thornton RN on 01/29/25 10:07 Dose Route Admin Location Dispensed Lot Number Expiration Date [facility] Embedded Firmware Engineer 10 mL intra-urethral 10 mL nitrofurantoin monohydrate/macrocrystals 100 mg capsule Performing Provider: Bolivar Chacon MD Performing Location: [facility] Administered by: Any Thornton RN on 01/29/25 10:07 Dose Route Admin Location Dispensed Lot Number Expiration Date NDC Embedded Firmware Engineer 100 mg PO 1 cap Results AMB Urinalysis, Automated UA Leukoctes 0 Alesia/uL Last Edit by LEAH Miller on 01/29/25 16:28 UA Nitrite Negative Last Edit by LEAH Miller on 01/29/25 16:28 UA Urobilinogen 3.5 mg/dL Last Edit by LEAH Miller on 01/29/25 16:2 8 UA Protein 3 mg/dL Last Edit by LEAH Miller on 01/29/25 16:28 UA pH 7.5 Last Edit by LEAH Miller on 01/29/25 16:28 UA Blood 0 Elías/uL Last Edit by LEAH Miller on 01/29/25 16:28 UA Specific [place] 1.010 Last Edit by LEAH Miller on 01/29/25 16: 28 UA Ketone Negative Last Edit by LEAH Miller on 01/29/25 16:28 UA Bilirubin 0 mg/dL Last Edit by LEAH Miller on 01/29/25 16:28 UA Glucose 0 mg/dL Last Edit by LEAH Miller on 01/29/25 16:28 Results Reviewed Results Reviewed: Laboratory Last Values Urine pH (Auto) 7.5 01/29/25 16:21 Specific [place] (Auto) 1.010 01/29/25 16:21 Urine Protein (Auto) 3 mg/dL 01/29/25 16:21 Glucose (UA)(Auto) 0 mg/dL 01/29/25 16:21 Urine Ketones (Auto) Negative 01/29/25 16:21 Urine Blood (Auto) 0 Elías/uL 01/29/25 16:21 Urine Nitrite (Auto) Negative 01/29/25 16:21 Urine Bilirubin (Auto) 0 mg/dL 01/29/25 16:21 Urine Urobilinogen (Auto) 3.5 mg/dL 01/29/25 16:21 Leukocyte Esterase (Auto) 0 Alesia/uL 01/29/25 16:21 Assessment & Plan Assessment & Plan (1) Bladder outlet obstruction: Code(s): N32.0 - Bladder-neck obstruction Category: Medical Plan We discussed the nature of the decision and reasonable options for performing a prostate intervention. Interventions include TURP, GreenLight laser enucleation of the prostate, GreenLight laser ablation of the prostate, transurethral incision of the prostate, and I-Tend prostate procedure. Options such as medical therapy were discussed. The relative uncertainties and benefits related to each alternate procedure were adequately discussed. General surgical risks including, but not limited to, pain, bleeding, infection, myocardial infarction, pulmonary embolus, deep vein thrombosis and cerebrovascular accident which may result in further hospitalization were discussed. Full disclosure of the procedure as well as all major risks, benefits and complications were discussed including but not limited to damage to the urethra or bladder neck, recurrent BPH, retrograde ejaculation, bladder infection, urge, de jenni frequency, incomplete emptying, dysuria, remote chance of erectile dysfunction, epididymitis, and meatal stenosis. The success rate of the procedure was discussed. Success of the procedure in the short-term does not necessarily guarantee that long-term success will be maintained. Suitable follow up will need to be maintained. The patient showed understanding of discussion. An opportunity was provided for questions to be answered and wishes to proceed with the following procedure. - bipolar button Orders: Orders AMB Cystoscopy 01/29/25 R33.9 - Retention of urine, unspecified AMB Urinalysis Automated 01/29/25 Z13.9 - Encounter for screening, unspecified Patient Instructions: This note is constructed using voice recognition software. While every effort has been made to ensure accuracy ready to wear department manager errors may have been included. Imaging studies, laboratory and physical exam results were discussed and reviewed in detail. No major barriers to patient understanding were identified. An opportunity to ask questions regarding the treatment plan was provided. All questions were answered. The patient expressed understanding and agreement with the above treatment plan. The patient is aware they should contact our office by phone for worsening of their current condition or the appearance of new urologic symptoms. Compliance i s encouraged with any medications and followup testing that is ordered. It is a privilege to participate in the urologic care of your patient. If you have any questions or concerns regarding treatment for the above conditions, or other urologic issues, please do not hesitate to contact me. The office telephone contact is [phone]. Sincerely, Dr Bolivar Chacon MD, [facility] - Urology Compassionate Specialist Care for the Genitourinary System Coding Level of Care Code Est Pt Level 4 (66443) Diagnoses Bladder outlet obstruction N32.0 CPT Codes Cystoscopy - CPT: 07423-[id number] ([id number])
--- OUTSIDE RECORDS SUMMARY | 2025-01-29 12:01 | XMS_ITS | Clinical Summary ---
Author Organization [facility] Facility Address [address] [place] [id number] Care Team Providers Care Rail Flaw Detector Operator Name Role Phone Arsh Sharif MD [...] Medicaid [place] Care Teams Rail Flaw Detector Operator Relationship Specialty Start Date End Date Arsh Sharif MD [address] [place] [address] [id number] PCP - General Internal Medicine 08/24/21
--- OUTSIDE RECORDS SUMMARY | 2025-01-29 12:01 | XMS_ITS | Encounter Summary ---
Author Organization [employer] Address [address] [facility] 7t [place] [address] Care Team Providers Care Creative Project Manager Name Role Phone Arsh Gamez MD Primary Care Provide r Reason for Visit * Reason Onset Date Comments November recall 01/28/2025 Encounter Details Date Type Department Care Team ([facility] st Contact Info) Description 01/28/2025 Telephone [facility] MEDICINE [address] [place], [place] [phone] Arsh Gamez MD [address] [place], [place] [phone] March recall Social History Tobacco Use Types Packs/Day [...] encounter Miscellaneous Notes * Telephone Encounter - Shari Avila [place] - 01/28/2025 9:50 AM EDT Telephone call to patient to schedule the following recall: Visit type: Office visit extended Appointment notes: DM Patient agree to appointment on 03/21/25 at 10:30 AM with Kole. During call pt ask if he can get blood work order prior to the visit. documented in this encounter Plan of Treatment Upcoming Encounters Date Type Department Care Team (Late st Contact Info) Description 03/21/2025 10:30 AM EST Office Visit [facility] MEDICINE [address] [place] [address] Arsh Gamez MD [address] [place] [address] 06/13/2025 8:00 AM EST Office Visit [facility] ADULT DENTAL [address] [place] [address] Mari Bloom documented as of this encounter Visit Diagnoses Not on filedocumented in this encounter Additional Health Concerns Assessment Noted Time PHQ-9 Depression Total Score: 0 12/19/19 8:55 AM EDT documented as of this encounter Care Teams Creative Project Manager Relationship Specialty Start Date End Date Arsh Gamez MD [address] [place] [address] PCP - General Internal Medicine 12/18/13 documented as of this encounter
--- OUTSIDE RECORDS SUMMARY | 2025-01-29 12:01 | XMS_ITS | Encounter Summary ---
Author Organization [employer] Address [address] [facility] 7t [place] [address] Care Team Providers Care Field Assistant Name Role Phone Arsh Gamez MD Primary Care Provide r Reason for Visit * Reason Comments Med Refill Encounter Details Date Type Department Care Team ([facility] st Contact Info) Description 05/11/2024 Refill [facility] MEDICINE [address] [place], [place] [phone] Arsh Gamez MD [address] [place], [place] [phone] Need for prophylactic antibiotic Social History Tobacco [...] Description 03/21/2025 10:30 AM EST Office Visit [facility] MEDICINE [address] [place] [address] Arsh Gamez MD [address] [place] [address] 06/13/2025 8:00 AM EST Office Visit [facility] ADULT DENTAL [address] [place] [address] Mari Bloom documented as of this encounter Visit Diagnoses Diagnosis Need for prophylactic antibiotic Encounter for long-term (current) use of antibiotics documented in this encounter Additional Health Concerns Assessment Noted Time PHQ-9 Depression Total Score: 0 09/29/19 24 9:32 AM EDT documented as of this encounter Care Teams Field Assistant Relationship Specialty Start Date End Date Arsh Gamez MD [address] [place] [address] PCP - General Internal Medicine 12/18/13 documented as of this encounter
--- OUTSIDE RECORDS SUMMARY | 2025-01-29 12:01 | XMS_ITS | Encounter Summary ---
Author Organization [employer] Address [address] [facility] 7t [place] [address] Care Team Providers Care Qlikview Developer Name Role Phone Arsh Gamez MD Primary Care Provide r Reason for Visit * Reason Comments Med Refill Encounter Details Date Type Department Care Team ([facility] st Contact Info) Description 04/06/2024 Refill [facility] ADULT DENTAL [address] [place], [place] [phone] Power Davis, OLIVA [address] [place] [address] Social History Tobacco Use Types Packs/Day Years [...] Description 03/21/2025 10:30 AM EST Office Visit [facility] MEDICINE [address] [place] [phone] Arsh Gamez MD [address] [place] [address] 06/13/2025 8:00 AM EST Office Visit [facility] ADULT DENTAL [address] [place] [address] Mari Bloom documented as of this encounter Visit Diagnoses Not on filedocumented in this encounter Additional Health Concerns Assessment Noted Time PHQ-9 Depression Total Score: 0 09/29/19 24 9:32 AM EDT documented as of this encounter Care Teams Qlikview Developer Relationship Specialty Start Date End Date Arsh Gamez MD [address] [place] [phone] PCP - General Internal Medicine 12/18/13 documented as of this encounter
--- OUTSIDE RECORDS SUMMARY | 2025-01-29 12:01 | XMS_ITS | Encounter Summary ---
Author Organization [employer] Address [address] [facility] 7t [place] [address] Care Team Providers Care Laserist Name Role Phone Arsh Gamez MD Primary Care Provide r Reason for Visit * Reason Onset Date Comments rescheduled appt mistakenly cancelled 05/17/2024 Encounter Details Date Type Department Care Team (Late st Contact Info) Description 05/17/2024 Telephone [facility] ADULT DENTAL [address] [place], [place] [phone] Nickie, Sheyla [address] [place] [address] rescheduled appt mistakenly cancelled Social History Tobacco [...] Description 03/21/2025 10:30 AM EST Office Visit [facility] MEDICINE [address] [place] [address] Arsh Gamez MD [address] [place] [address] 06/13/2025 8:00 AM EST Office Visit [facility] ADULT DENTAL [address] [place] [address] Mari Bloom documented as of this encounter Visit Diagnoses Not on filedocumented in this encounter Additional Health Concerns Assessment Noted Time PHQ-9 Depression Total Score: 0 09/29/19 24 9:32 AM EDT documented as of this encounter Care Teams Laserist Relationship Specialty Start Date End Date Arsh Gamez MD [address] [place] [address] PCP - General Internal Medicine 12/18/13 documented as of this encounter
--- OUTSIDE RECORDS SUMMARY | 2025-01-29 12:01 | XMS_ITS | Encounter Summary ---
Author Organization [employer] Address [address] [facility] [address] [place] [address] Care Team Providers Care Freight Solicitor Name Role Phone Arsh Gamez MD Primary Care Provide r Reason for Visit * Reason Comments Med Refill Encounter Details Date Type Department Care Team ([facility] st Contact Info) Description 07/07/2024 Refill [facility] [address] [place], [place] [phone] Arsh Gamez MD [address] [place], [place] [phone] Benign prostatic hyperplasia with urinary frequency Social [...] Description 03/21/2025 10:30 AM EST Office Visit [facility] MED[facility]INE [address] [place] [address] Arsh Gamez MD [address] [place] [address] 06/13/2025 8:00 AM EST Office Visit [facility] ADULT DENTAL [address] [place] [address] Mari Bloom documented as of this encounter Visit Diagnoses Diagnosis Benign prostatic hyperplasia with urinary frequency documented in this encounter Additional Health Concerns Assessment Noted Time PHQ-9 Depression Total Score: 0 09/29/19 24 9:32 AM EDT documented as of this encounter Care Teams Freight Solicitor Relationship Specialty Start Date End Date Arsh Gamez MD [address] [place] [address] PCP - General Internal Medicine 12/18/13 documented as of this encounter
--- OUTSIDE RECORDS SUMMARY | 2025-01-29 12:01 | XMS_ITS | Clinical Summary ---
Author Organization [employer] Address 75 [facility] 7t [place] [address] Care Team Providers Care Telephone Station Installer Name Role Phone Arsh Gamez MD [...] capsule by mouth at bedtime. 3 Active amoxicillin (Amoxil) 500 MG capsule Take 4 caps 1 hour prior dental procedure 12 capsule 5 Active omeprazole (PriLOSEC) [address] capsule TOME MARCELINA CAPSULA DOS VECES AL JOHN PAUL BEFORE A MEAL 180 capsule 3 5 Active metFORMIN XR (Glucophage-XR) 500 MG 24 hr tablet TOME MARCELINA TABLETA TODOS [place] ED 90 tablet 3 5 Active metoprolol succinate XL (Toprol-XL) 25 MG 24 hr tablet TOME 1 TABLETA POR VIA ORAL TODOS [place] 90 tablet 1 5 Active amoxicillin (Amoxil) 500 MG capsule Take 4 caps 1 hour prior dental procedure 12 capsule 5 Active finasteride (Proscar) 5 MG tabletIndication s:Benign prostatic hyperplasia with urinary frequency TAKE 1 TABLET (5 MG) BY MOUTH ONCE PER DAY. 90 tablet 1 5 Active glucose blood (FREESTYLE LITE) test stripIndications :Type 2 diabetes mellitus without complication, without long-term current use of insulin ([facility]) USE DIRECTED TO TEST BLOOD SUGAR ONCE DAILY 50 each 7 5 Active TRUEplus Lancets 33G miscIndications: Type 2 diabetes mellitus without complication, without long-term current use of insulin ([facility]) USE DIRECTED TO TEST BLOOD SUGAR ONCE DAILY 100 each 3 5 Active Blood Glucose Monitoring Suppl (FreeStyle Viburnum Lite) w/Device kitIndications:T ype 2 diabetes mellitus without complication, without long-term current use of insulin ([facility]) Use to test blood sugar once daily 1 kit 5 Active aspirin 81 MG EC tablet Take 1 tablet by mouth Once per day. 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 Arrington last seen 10/02/2012. He [...] LS spine done at [facility] on 02/18/2000 showed no evidence [...] LS spine done at [facility] on 02/18/2000 showed no evidence [...] Pt back to see Dr Campbell ( web marketing manager) Pt stopped Amlodipine due GI side effects [...] Pt back to see Dr Campbell ( web marketing manager) Pt stopped Amlodipine due GI side effects [...] Pt back to see Dr Campbell ( web marketing manager) Pt stopped Amlodipine due GI side effects [...] Pt back to see Dr Campbell ( web marketing manager) Pt stopped Amlodipine due GI side effects [...] Pt back to see Dr Campbell ( web marketing manager) Pt stopped Amlodipine due GI side effects [...] Pt back to see Dr Campbell ( web marketing manager) Pt stopped Amlodipine due GI side effects and dizziness Plan: continue current regimen Follow up in 4 months Gastroesophageal reflux disease without esophagi tis 02/12/2014 Assessment & Plan (06/16/2022 2:01 PM EST): Patient under the care [facility]. Last seen by Dr [...] Encounters Date Type Department Care Team Description 01/28/2025 Telephone [facility] MEDICINE [address] [place] [address] Arsh Gamez MD March01/15/2025 Orders Only [facility] [place] [place] [address] Arsh Gamez MD Gastroesophageal reflux disease without esophagitis (Primary Dx) 01/10/2025 Telephone [facility] [place] [address] Arsh Gamez MD Referral 12/28/2024 10:00 AM EDT Office Visit [facility] ADULT DENTAL [address] [place] [address] Power Davis, DMD 12/25/2024 Telephone [facility] [address] Arsh Gamez MD Prior Authorization 12/25/2024 Telephone [facility] [address] Arsh Gamez MD Nurse Triage 12/24/2024 Refill [facility] [place] [address] Arsh Gamez MD Type 2 diabetes mellitus without complication, without long-term current use of insulin ([facility]) 12/20/2024 Telephone [facility] [place] [address] Arsh Gamez MD Referral 12/19/2024 Telephone [facility] [address] [place] [address] Arsh Gamez MD Call Back Request 12/18/2024 9:00 AM EDT Office Visit [facility] [address] [place] [address] Arsh Gamez MD Type 2 diabetes mellitus without complication, without long-term current use of insulin ([facility]) (Primary Dx); Essential hypertension; Paroxysmal tachycardia (CMS/HCC); Encounter for immunization; Chronic midline low back pain without sciatica 12/18/2024 Refill [facility] [address] [place] [address] Arsh Gamez MD Type 2 diabetes mellitus without complication, without long-term current use of insulin (CMS/HCC) 12/18/2024 Travel 12/17/2024 Telephone [facility] [address] [place] [address] Arsh Gamez MD Chart Prep 12/13/2024 Telephone [facility] [place] [address] Arsh Gamez MD appt request 12/11/2024 Orders Only [facility] [address] [place] [address] Arsh Gamez MD 12/04/2024 Telephone [facility] [place] [address] Arsh Gamez MD telephone call 11/27/2024 8:00 AM EDT Office Visit [facility] ADULT DENTAL [address] [place] [address] Trena Lozano 11/27/2024 Refill [facility] [place] [address] Arsh Gamez MD Benign prostatic hyperplasia with [...] housing situation today? I have timothysuresh granger 12/18/[address] you [...] t he electric, gas, oil or water [employer] threatened to shut off services in your [...] 03/21/2025 10:30 AM EST Office Visit [facility] MED[facility] [address] [place] [address] Arsh Gamez MD 230 [place] [address] 06/13/2025 8:00 AM EST Office Visit [facility] ADULT DENTAL [address] [place] [address] Mari Bloom Health Maintenance Due Date Last [...] 04/29/2021, 07/22/2020, 06/24/2020 Influenza Vaccine (#1) 2025 3, 03/17/2022, 05/14/2021, Additional history exists Alcohol/Substance Use [...] complication, without long-term current use of insulin ([facility]) POCT GLUCOSE Routine 12/18/2024 9:08 AM EDT Type 2 diabetes mellitus without complication, without long-term current use of insulin ([facility]) BASIC METABOLIC PANEL Routine 12/10/2024 9:17 AM [...] PM EDT Narrative 12/26/2024 7:16 AM EDT [place] [address] Magnetic Resonance Report Signed Patient: Jakob Machado MR#: [id number] : 1960 Acct:[id number] Age/Sex: 64 / M ADM Date: 12/25/24 Loc: HO.MRI Attending Dr: Arsh Torres MD Ordering Physician: Arsh Torres MD Date of Service: 12/25/24 Procedure(s): MR lumbar spine wo con Accession Number(s): [id number] cc: Arsh Torres MD EXAMINATION: MR LUMBAR [...] OV> 12/26/24 0713 DD/ 29 TD/TT: 12/25/241999 Dispatch Manager: Procedure Note Donotuseinterpreter, Image - 12/26/[address] [address] Magnetic Resonance Report Signed Patient: Jakob Machado [facility]#: [id number] : 1960Acct:[id number] Age/Sex: 64 / MADM Date: 12/25/24 Loc: HO.MRI Attending Dr: Arsh Torres MD Ordering Physician: Arsh Torres MD Date of Service: 12/25/24 Procedure(s): MR lumbar spine wo con Accession Number(s): [id number] cc: Arsh Torres MD EXAMINATION: MR LUMBAR [...] OV> 12/26/24 0713 DD/ 29 TD/TT: 12/25/241999 Dispatch Manager: Arsh Holliday MD IMG MRI PROCEDURES Fi nal Result * (ABNORMAL) POCT HGB A1C (12/18/2024 9:10 AM EDT) Hemoglobin A1C 5.8(A) 4.0 - 5.7 % QC Media Lot # [id number] Lot# Expiration Date Blood 12/18/2024 9:10 AM EDT Arsh Holliday MD POINT OF CARE TEST EN TER/EDIT ORDERABLES Final Result * POCT Glucose (12/18/2024 9:08 AM EDT) Glucose Blood, POC 81 60 - 200 mg/dL QC Media Lot # [id number] Lot# Expiration Date [id number] Blood Capillary blood specimen / Unknown 12/18/2024 9:[address] [facility] Arsh Holliday MD POINT OF CARE TEST EN TER/EDIT ORDERABLES Final Result * PSA,Total (12/10/2024 9:17 AM EDT) Prostate Specific Antigen 1.45 <0.05 - 4.0 ng/mL [facility] Comment:PSA methodology: Abb caron Alikishanty i ChemiluminescentMicroparticle Immunoassay (CMIA) 12/10/2024 9:17 AM EDT 12/10/2024 9:17 AM EDT us Generic External Data Provider LAB BLOOD ORDERAB LES Final Result Performing Organization Address [facility] Co de Phone Number [facility] [address] [place] [address] [phone] * (ABNORMAL) Basic Metabolic Panel (12/10/2024 9:17 AM EDT) Sodium 141 135 - 145 mmol/L [facility] Potassium 3.8 3.3 - 5.1 mmol/L [facility] Chloride 107 96 - 108 mmol/L [facility] Carbon Dioxide 26 22 - 29 mmol/L [facility] Anion Gap 12 12 - 20 [facility] Urea Nitrogen (BUN) 16 9 - 16 mg/dL [facility] Creatinine, Serum 1.48(H) 0.5 - 1.4 mg/dL [facility] Estimated Glomerular Filt Rate 48 [facility] Comment:Chronic Kidney Disea se: Estimated GFR < 60 mL/min/[id number] Kidney Disease: Estimated GFR < 15 mL/min/1.73m2 Glucose 126(H) 60 - 115 mg/dL [facility] Calcium 9.7 8.4 - 10.2 mg/dL [facility] 12/10/2024 9:17 AM EDT 12/10/2024 9:17 AM EDT us Generic External Data Provider LAB BLOOD ORDERAB LES Final Result Performing Organization Address [facility] Co de Phone Number [facility] [address] [place] [phone] * (ABNORMAL) Urine Protein, Total, Random without Creatinine (12/10/2024 9:12 AM EDT) Protein, Total, Random Urine 31(H) <12 mg/dL [facility] 12/10/2024 9:12 AM EDT 12/10/2024 9:45 AM EDT Generic External Data Provider LAB URINE ORDERAB LES Final Result Performing Organization Address [facility]/ZIP Co de Phone Number [facility] [address] [place] [address] [phone] * Creatinine, Random Urine (12/10/2024 9:12 AM EDT) Creatinine, Urine 85.29 mg/dL [facility] 12/10/2024 9:12 AM EDT 12/10/2024 9:45 AM EDT us Generic External Data Provider LAB URINE ORDERAB LES Final Result Performing Organization Address [facility] Co de Phone Number [facility] [address] [place] [address] [phone] * (ABNORMAL) Urinalysis Complete (12/10/2024 9:12 AM EDT) Color Urine Yellow [facility] Appearance Urine Clear [facility] PH 7.5 5.0 - 9.0 [facility] Glucose Urine UA Negative Negative mg/dL [facility] Urine Blood Negative Negative [facility] Specific [place] - Urine 1.010 1.005 - 1.025 [facility] Urine Protein 30 (1+)(A) Neg-Trace mg/dL [facility] Urine Ketones Negative Negative mg/dL [facility] Nitrite Urine Negative Negative [facility] Leukocyte Esterase Urine Negative Negative [facility] RBC Urine 0-2 0 - 2 /HPF [facility] Urine WBC 0-5 0 - 5 /HPF [facility] Urine Squamous Epithelial Cell 0-2 0 - 2 /HPF [facility] Urine Bacteria None Seen None Seen [facility] Hyaline Casts, Urine 0-2 0 - 2 /LPF [facility] 12/10/2024 9:12 AM EDT 12/10/2024 9:45 AM EDT us Generic External Data Provider LAB URINE ORDERAB LES Final Result Performing Organization Address [facility] Co de Phone Number [facility] [address] [place] [address] [phone] * (ABNORMAL) Lipid Panel, Standard (05/23/2024 8:09 AM EST) Triglycerides 127 <150 mg/dL [facility] Comment:Desirable Triglyceri de: less than 150 mg/dLBorderline High Triglyceride 150-199 mg/dLHigh Triglyceride: 200-499 mg/dLVery High Triglyceride: greater than or equal to 5OO mg/dL Cholesterol 153 <200 mg/dL [facility] Comment:Desirable Cholestero l: less than 200 mg/dLBorderline High Cholesterol: 200-239 mg/dLHigh Cholesterol: greater than 239 mg/dL LDL Cholesterol Calculated 97 <100 mg/dL [facility] Comment:Desirable LDL: less than 100 mg/dLNear Optimal/Above Optimal LDL: 110- 129 mg/dLBorderline High LDL: 130-159 mg/dLHigh LDL: 160-189 mg/dLVery High LDL: greater than or equal to 190 mg/dL HDL Cholesterol 31(L) >40 mg/dL [facility] Comment:Desirable HDL: great er than 40 mg/dL Note: This HDL assay may give artificially low results in patients with liver disease. Blood Venous blood specimen / Unknown 05/23/2024 8:09 AM EST 05/23/2024 8:09 AM EST Arsh Holliday MD LAB BLOOD ORDERABLES Final Result Performing Organization Address [facility] Co de Phone Number [facility] [address] [place] [address] [phone] * Hepatitis C Antibody Reflex (06/17/2022 10:14 AM EST) Hepatitis C Antibody Nonreactive Nonreactive [facility] Comment:Antibodies to HCV no t detected; does not exclude early acuteHCV infection. 06/17/2022 10:1 4 AM EST 06/17/2022 10:14 AM EST [facility] External Provider LAB BLO OD ORDERABLES Final Result [facility] [address] [place] [address] [phone] * Hm Colonoscopy (06/11/2020 8:26 AM EST) Colonoscopy Normal Normal Historical Provider HEALTH MAINTENANCE Edited Result - Final from Last 3 Months or Most Recently Relevant to Health Maintenance Insurance [facility] STANDARD [place] [phone] [facility] STAND ADULT Care Teams Telephone Station Installer Relationship Specialty Start Date End Date Arsh Gamez MD [address] [place] [address] PCP - General Internal Medicine 12/18/13
--- OUTSIDE RECORDS SUMMARY | 2025-01-29 12:02 | XMS_ITS | Encounter Summary ---
Author Organization [employer] Address 75 [facility] 7t [place] [address] Care Team Providers Care Market Development Trainer Name Role Phone Arsh Gamez MD Primary Care Provide r Reason for Visit * Reason Onset Date Comments Med Refill 10/09/2024 Encounter Details Date Type Department Care Team ([facility] st Contact Info) Description 10/09/2024 Telephone [facility] MEDICINE [address] [place], [place] [phone] Arsh Gamez MD [address] [place], [place] [phone] Med Refill Social History Tobacco Use Types [...] 15 MG tablet To be sent to: [facility]/pharmacy #[id number] [facility], [place] - [address] [place] [address] AT NEXT TO [facility] documented in this encounter Plan of Treatment Upcoming Encounters Date Type Department Care Team (Late st Contact Info) Description 03/21/2025 10:30 AM EST Office Visit [facility] MEDICINE [address] [place] [address] Arsh Gamez MD [address] [place] [address] 06/13/2025 8:00 AM EST Office Visit [facility] ADULT DENTAL [address] [place] [address] Mari Bloom documented as of this encounter Visit Diagnoses Not on filedocumented in this encounter Additional Health Concerns Assessment Noted Time PHQ-9 Depression Total Score: 0 09/29/19 24 9:32 AM EDT documented as of this encounter Care Teams Market Development Trainer Relationship Specialty Start Date End Date Arsh Gamez MD [address] [place] [address] PCP - General Internal Medicine 12/18/13 documented as of this encounter
--- OUTSIDE RECORDS SUMMARY | 2025-01-29 12:02 | XMS_ITS | Encounter Summary ---
Author Organization [employer] Address 75 [facility] 7t [place] [address] Care Team Providers Care Pantograph I Engraver Name Role Phone Arsh Gamez MD Primary Care Provide r Reason for Visit * Reason Comments Med Refill Encounter Details Date Type Department Care Team ([facility] st Contact Info) Description 03/25/2024 Refill [facility] ADULT DENTAL [address] [place], [place] [phone] Rolando Denton, CAT [address] [place] [address] Social History Tobacco Use Types Packs/Day Years [...] Description 03/21/2025 10:30 AM EST Office Visit [facility] MEDICINE [address] [place] [phone] Arsh Gamez MD [address] [place] [address] 06/13/2025 8:00 AM EST Office Visit [facility] ADULT DENTAL [address] [place] [address] Mari Bloom documented as of this encounter Visit Diagnoses Not on filedocumented in this encounter Additional Health Concerns Assessment Noted Time PHQ-9 Depression Total Score: 0 09/29/19 24 9:32 AM EDT documented as of this encounter Care Teams Pantograph I Engraver Relationship Specialty Start Date End Date Arsh Gamez MD [address] [place] [phone] PCP - General Internal Medicine 12/18/13 documented as of this encounter
--- OUTSIDE RECORDS SUMMARY | 2025-01-29 12:02 | XMS_ITS | Encounter Summary ---
Author Organization [employer] Address 75 [facility] 7t [place] [address] Care Team Providers Care Head Refrigerating Engineer Name Role Phone Arsh Gamez MD Primary Care Provide r Reason for Visit * Reason Onset Date Comments Appointment Request 12/30/2023 Encounter Details Date Type Department Care Team ([facility] st Contact Info) Description 12/30/2023 Telephone [facility] MEDICINE [address] [place], [place] [phone] Arsh Gamez MD [address] [place], [place] [phone] Appointment Request Social History Tobacco Use Types [...] Visit [facility] MEDICINE [address] [place] [address] Arsh Gamez MD [address] [place] [address] 06/13/2025 8:00 AM EST Office Visit [facility] ADULT DENTAL [address] [place] [address] Mari Bloom documented as of this encounter Visit Diagnoses Not on filedocumented in this encounter Additional Health Concerns Assessment Noted Time PHQ-9 Depression Total Score: 0 09/29/19 24 9:32 AM EDT documented as of this encounter Care Teams Head Refrigerating Engineer Relationship Specialty Start Date End Date Arsh Gamez MD [address] [place] [address] PCP - General Internal Medicine 12/18/13 documented as of this encounter
--- OUTSIDE RECORDS SUMMARY | 2025-01-29 12:02 | XMS_ITS | Encounter Summary ---
Author Organization [employer] Address 75 [facility] 7t [place] [address] Care Team Providers Care Store Cashier Name Role Phone Arsh Gamez MD Primary Care Provide r Reason for Visit * Reason Comments Med Refill Encounter Details Date Type Department Care Team ([facility] st Contact Info) Description 09/30/2024 Refill [facility] MEDICINE [address] [place], [place] [phone] Arsh Gamez MD [address] [place], [place] [phone] Social History Tobacco Use Types Packs/Day Years [...] 10:30 AM EST Office Visit [facility] MEDICINE [address] [place] [address] Arsh Gamez MD [address] [place] [address] 06/13/2025 8:00 AM EST Office Visit [facility] ADULT DENTAL [address] [place] [address] Mari Bloom documented as of this encounter Visit Diagnoses Not on filedocumented in this encounter Additional Health Concerns Assessment Noted Time PHQ-9 Depression Total Score: 0 09/29/19 24 9:32 AM EDT documented as of this encounter Care Teams Store Cashier Relationship Specialty Start Date End Date Arhs Gamez MD [address] [place] [address] PCP - General Internal Medicine 12/18/13 documented as of this encounter
--- OUTSIDE RECORDS SUMMARY | 2025-01-29 12:02 | XMS_ITS | Encounter Summary ---
Author Organization [employer] Address 75 [facility] 7t [place] [address] Care Team Providers Care Senior Database Engineer Name Role Phone Arsh Gamez MD Primary Care Provide r Reason for Visit * Reason Onset Date Comments Results 03/27/2024 Encounter Details Date Type Department Care Team ([facility] Contact Info) Description 03/27/2024 Telephone [facility] MEDICINE [address] [place], [place] [phone] Arsh Gamez MD [address] [place], [place] [phone] Results Social History Tobacco Use Types Packs/Day [...] Description 03/21/2025 10:30 AM EST Office Visit [facility] MEDICINE [address] [place] [address] Arsh Gamez MD [address] [place] [address] 06/13/2025 8:00 AM EST Office Visit [facility] ADULT DENTAL [address] [place] [address] Mari Bloom documented as of this encounter Visit Diagnoses Not on filedocumented in this encounter Additional Health Concerns Assessment Noted Time PHQ-9 Depression Total Score: 0 09/29/19 24 9:32 AM EDT documented as of this encounter Care Teams Senior Database Engineer Relationship Specialty Start Date End Date Arsh Gamez MD [address] [place] [phone] PCP - General Internal Medicine 12/18/13 documented as of this encounter
--- OUTSIDE RECORDS SUMMARY | 2025-01-29 12:02 | XMS_ITS | Encounter Summary ---
Author Organization [employer] Address 75 [facility] 7t [place] [address] Care Team Providers Care Supervisor Blood Donor Recruiters Name Role Phone Arsh Gamez MD Primary Care Provide r Reason for Visit * Reason Onset Date Comments Referral 01/10/2025 Encounter Details Date Type Department Care Team ([facility] st Contact Info) Description 01/10/2025 Telephone [facility] MEDICINE [address] [place], [place] [phone] Arsh Gamez MD [address] [place], [place] [phone] Referral Social History Tobacco Use Types Packs/Day [...] from pt requesting a referral for gastroenterology. [facility] Phone number [phone] documented in this encounter Plan of Treatment Upcoming Encounters Date Type Department Care Team (Late st Contact Info) Description 03/21/2025 10:30 AM EST Office Visit [facility] MEDICINE [address] [place] [address] Arsh Gamez MD [address] [place] [address] 06/13/2025 8:00 AM EST Office Visit [facility] ADULT DENTAL [address] [place] [address] Mari Bloom documented as of this encounter Visit Diagnoses Not on filedocumented in this encounter Additional Health Concerns Assessment Noted Time PHQ-9 Depression Total Score: 0 12/19/19 25 8:55 AM EDT documented as of this encounter Care Teams Supervisor Blood Donor Recruiters Relationship Specialty Start Date End Date Arsh Gamez MD [address] [place] [address] PCP - General Internal Medicine 12/18/13 documented as of this encounter
--- OUTSIDE RECORDS SUMMARY | 2025-01-29 12:02 | XMS_ITS | Encounter Summary ---
Author Organization [employer] Address [address] [facility] 7t [place] [address] Care Team Providers Care Nail Mill Worker Name Role Phone Arsh Gamez MD Primary Care Provide r Reason for Visit * Reason Onset Date Comments Med Change Request Prior Authorization 03/10/2023 SUMAtriptan (Imitrex) 50 MG tablet Encounter Details Date Type Department Care Team ([facility] st Contact Info) Description 03/10/2023 Refill [facility] MEDICINE [address] [place], [place] [phone] Arsh Gamez MD [address] [place], [place] [phone] Social History Tobacco Use Types Packs/Day Years [...] Description 03/21/2025 10:30 AM EST Office Visit [facility] MEDICINE [address] [place] [address] Arsh Gamez MD [address] [place] [address] 06/13/2025 8:00 AM EST Office Visit [facility] ADULT DENTAL [address] [place] [address] Mari Bloom documented as of this encounter Visit Diagnoses Not on filedocumented in this encounter Care Teams Nail Mill Worker Relationship Specialty Start Date End Date Arsh Gamez MD [address] [place] [phone] PCP - General Internal Medicine 12/18/13 documented as of this encounter
--- OUTSIDE RECORDS SUMMARY | 2025-01-29 12:02 | XMS_ITS | Encounter Summary ---
Author Organization [employer] Address [address] [facility] [address] 7t [place] [address] Care Team Providers Care Environmental Health Safety Manager Name Role Phone Arsh Gamez MD Primary Care Provide r Reason for Visit * Reason Comments Med Refill Encounter Details Date Type Department Care Team ([facility] st Contact Info) Description 06/24/2023 Refill [facility] CH[facility] MED & PEDS [address] [place], [place] [phone] Arsh Gamez MD [address] [place] [address] Pain Social History Tobacco Use Types Packs/Day [...] Description 03/21/2025 10:30 AM EST Office Visit [facility] MEDICINE 230 [place] [address] Arsh Gamez MD [address] [place] [address] 06/13/2025 8:00 AM EST Office Visit [facility] ADULT DENTAL [address] [place] [address] Mari Bloom documented as of this encounter Visit Diagnoses Diagnosis Pain Generalized pain documented in this encounter Care Teams Environmental Health Safety Manager Relationship Specialty Start Date End Date Arsh Gamez MD [address] [place] [phone] PCP - General Internal Medicine 12/18/13 documented as of this encounter
--- OUTSIDE RECORDS SUMMARY | 2025-01-29 12:02 | XMS_ITS | Encounter Summary ---
Author Organization [employer] Address [address] [facility] 7t [place] [address] Care Team Providers Care Power Switchboard Operator Name Role Phone Arsh Gamez MD Primary Care Provide r Encounter Details Date Type Department Care Team (Late st Contact Info) Description 06/14/2022 Orders Only [facility] MED & PEDS [address] [place] [address] Sarah Pineda LPN Social History Tobacco Use [...] Description 03/21/2025 10:30 AM EST Office Visit [facility] MEDICINE [address] [place] [address] Arsh Gamez MD 230 [place] [address] 06/13/2025 8:00 AM EST Office Visit [facility] ADULT DENTAL [address] [place] [address] Mari Bloom documented as of this encounter [...] EST documented in this encounter Results * [place]/Lambda Light Chains, Free with Ratio (06/17/2022 10:30 AM EST) Pathologist [facility] [place] Light Chain, Free, Serum 303 176 - 443 mg/dL [facility] Lambda Light Chain, Free, Serum 163 91 - 240 mg/dL [facility] [place]/Lambda Light Chains Free With Ratio, Serum 1.86 1.29 - 2.55 [facility] Comment:This assay provides a measurement of [...] myeloma, lymphoproliferative disorders, andamyloidosis.THIS TEST WAS PERFORMED AT:[employer] [id number] [place] [address]ZEQFZDELMA SINGER MD,PHD,ADRIENNE 06/17/2022 10:3 0 AM EST 06/18/2022 4:58 PM EST [facility] External Provider LAB BLO OD ORDERABLES Final Result Performing Organization Address [facility] Co de Phone Number [facility] [address] [place] [phone] * Albumin, Random Urine W/Creatinine (06/17/2022 10:30 AM EST) Creatinine, Urine 123.67 mg/dL [facility] Microalbumin Urine 42.0 mg/L [facility] Microalbum Creatinine Ratio Ur 33.9 ug/mg cr [facility] Comment:Albumin/Creatinine R atio Reference Ranges: Normal: < 30 ug/mg creatinine Microalbuminuria: 30 - 300 ug/mg creatinineClinical Albuminuria: > 300 ug/mg creatinine 06/17/2022 10:3 0 AM EST 06/17/2022 11:33 AM EST [facility] External Provider LAB URI NE ORDERABLES Final Result Performing Organization Address [facility] Co de Phone Number [facility] [address] [place] [phone] * Protein Electrophoresis and Total Protein, Random Urine (06/17/2022 10:15 AM EST) PEU-Random Urine Creatinine 121 20 - 320 mg/dL [facility] PEU-Random Urine Protein 14 5 - 25 mg/dL [facility] PEU-[place]. Prot/Creat Ratio 116 25 - 148 mg/g creat [facility] PEU-Random Urine Albumin 100 % [facility] PEU-Random Urine A1 Globulin 0 % [facility] PEU-Random Urine A2 Globulin 0 % [facility] PEU-Random Urine Beta Globulin 0 % [facility] PEU-Random Ur. Gamma Globulin 0 % [facility] PEU Ran-Abn Protein Band 1 [facility] PEU Ran-Abn Protein Band 2 [facility] PEU Ran-Abn Protein Band 3 [facility] PEU-Random Urine Interpret. SEE NOTE [facility] Comment:Normal PatternTHIS T EST WAS PERFORMED AT:[employer] [place] [address] (NL1)[place] [address]HZVNRTERRY JASON MD Protein/Creatini ne Ratio 0.116 0.025 - 0.148 [facility] Comment:Result Units: mg/mg creat 06/17/2022 10:1 5 AM EST 06/18/2022 3:03 PM EST [facility] External Provider LAB URI NE ORDERABLES Final Result Performing Organization Address [facility] Co de Phone Number [facility] [address] [place] [phone] * Immuniofixation, Urine (06/17/2022 10:15 AM EST) Pathologist [facility] DELVIN Interpretation [facility] Comment:No monoclonal protei ns detected.THIS TEST WAS PERFORMED AT:[employer] [place] [address] (NL1)[place] [address]PWSGGTERRY JASON MD 06/17/2022 10:1 5 AM EST 06/18/2022 3:03 PM EST [facility] External Provider LAB URI NE ORDERABLES Final Result Performing Organization Address City/[facility] Co de Phone Number [facility] [address] [place] [phone] * Hepatitis C Viral RNA, Quantitative, Real-Time PC (06/17/2022 10:14 AM EST) [facility] Hepatitis C Viral Load <15 NOT DETECTED NOT DETECTED IU/mL [facility] HCV Log PCR <1.18 NOT DETECTED NOT DETECTED Log IU/mL [facility] Comment:This test was perfor med using Real-Time Polymerase ChainReaction.Reportable Range: 15 IU/mL to 100,000,000 IU/mL(1.18 Log IU/mL to 8.00 Log IU/mL).The analytical performance characteristics of thisassay have been determined by [employer].The modifications have not been cleared or approved bythe FDA. This assay has been validated pursuant to theCLIA regulations and is used for clinical purposes.For more information on this test, go to:http://education.ShareDesk/faq/ANN35a5(This link is being provided for informational/educational purposes only.)THIS TEST WAS PERFORMED AT:[employer] [place] [address] (NL1)[place] [address]NTMNHTERRY JASON MD 06/17/2022 10:1 4 AM EST 06/17/2022 10:14 AM EST [facility] External Provider LAB BLO OD ORDERABLES Final Result Performing Organization Address City/State/[facility] Co de Phone Number [facility] [address] [place] [phone] * Protein Electrophoresis and [place]/Lambda Light Chains (06/17/2022 10:14 AM EST) Prot Elec - Total Protein 7.2 6.1 - 8.1 g/dL [facility] Prot Elec - Albumin 4.2 3.8 - 4.8 g/dL [facility] Prot Elec - Alpha1 0.3 0.2 - 0.3 g/dL [facility] Prot Elec - Alpha2 0.6 0.5 - 0.9 g/dL [facility] Prot Elec - Beta 1 0.5 0.4 - 0.6 g/dL [facility] Prot Elec - Beta 2 0.4 0.2 - 0.5 g/dL [facility] Prot Elec - Gamma 1.2 0.8 - 1.7 g/dL [facility] PES - Abn Protein Band 1 [facility] PES-Abn Protein Band 2 [facility] PES-Abn Protein Band 3 [facility] Prot Elec - Interpretation SEE NOTE [facility] Comment:Normal Electrophoret ic PatternTHIS TEST WAS PERFORMED AT:[employer] [address] (NL1)[place] [address]SFVWKJULIET JASON MD 06/17/2022 10:1 4 AM EST 06/17/2022 10:14 AM EST [facility] External Provider LAB BLO OD ORDERABLES Final Result Performing Organization Address [facility]/ZIP Co de Phone Number [facility] [address] [place] [address] [phone] * (ABNORMAL) Immunofixation, Serum (06/17/2022 10:14 AM EST) IMMUNOGLOBULIN G 1189 600 - 1540 mg/dL [facility] IMMUNOGLOBULIN A 355(A) 70 - 320 mg/dL [facility] Immunoglobulin M 145 50 - 300 mg/dL [facility] Comment:THIS TEST WAS PERFOR MED AT:[employer] [address] (NL1)[place] [address]RLNIVJULIET JASON MD Immunofixation Result SEE NOTE [facility] Comment:Normal pattern. No m onoclonal proteins detected. 06/17/2022 10:1 4 AM EST 06/18/2022 2:59 PM EST [facility] External Provider LAB BLO OD ORDERABLES Final Result Performing Organization Address [facility]/ZIP Co de Phone Number [facility] [address] [place] [address] [phone] * Hepatitis C Antibody Reflex (06/17/2022 10:14 AM EST) Hepatitis C Antibody Nonreactive Nonreactive [facility] Comment:Antibodies to HCV no t detected; does not exclude early acuteHCV infection. 06/17/2022 10:1 4 AM EST 06/17/2022 10:14 AM EST [facility] External Provider LAB BLO OD ORDERABLES Final Result Performing Organization Address City/[facility]/ZIP Co de Phone Number [facility] [address] [place] [phone] * Lipid Panel with Reflex to Direct LDL (06/17/2022 10:14 AM EST) Triglycerides 154 mg/dL [facility] Comment:Desirable Triglyceri de: less than 150 mg/dLBorderline High Triglyceride 150-199 mg/dLHigh Triglyceride: 200-499 mg/dLVery High Triglyceride: greater than or equal to 5OO mg/dL Cholesterol 176 mg/dL [facility] Comment:Desirable Cholestero l: less than 200 mg/dLBorderline High Cholesterol: 200-239 mg/dLHigh Cholesterol: greater than 239 mg/dL LDL Cholesterol Calculated 119 mg/dl [facility] Comment:Desirable LDL: less than 100 mg/dLNear Optimal/Above Optimal LDL: 110- 129 mg/dLBorderline High LDL: 130-159 mg/dLHigh LDL: 160-189 mg/dLVery High LDL: greater than or equal to 190 mg/dL HDL Cholesterol 27 mg/dL [facility] Comment:Desirable HDL: great er than 40 mg/dL Note: This HDL assay may give artificially low results in patients with liver disease. 06/17/2022 10:1 4 AM EST 06/17/2022 10:14 AM EST [facility] External Provider LAB BLO OD ORDERABLES Final Result Performing Organization Address City/[facility]/ZIP Co de Phone Number [facility] [address] [place] [address] [phone] * (ABNORMAL) Basic Metabolic Panel (06/17/2022 10:14 AM EST) Sodium 139 135 - 145 mmol/L [facility] Potassium 4.1 3.3 - 5.1 mmol/L [facility] Chloride 107 96 - 108 mmol/L [facility] Carbon Dioxide 25 22 - 29 mmol/L [facility] Anion Gap 11(L) 12 - 20 [facility] Urea Nitrogen (BUN) 19(H) 9 - 16 mg/dL [facility] Creatinine, Serum 1.20 0.5 - 1.4 mg/dL [facility] Estimated Glomerular Filt Rate >60 [facility] Comment:NOTE: For -Am erican individuals, multiply the result by 1.210.Chronic Kidney Disease: Estimated GFR < 60 mL/min/1.18h0Avxisn Kidney Disease: Estimated GFR < 15 mL/min/1.73m2 Glucose 93 60 - 115 mg/dL [facility] Calcium 9.2 8.4 - 10.2 mg/dL [facility] 06/17/2022 10:1 4 AM EST 06/17/2022 10:14 AM EST us [facility] External Provider LAB BLO OD ORDERABLES Final Result [facility] [address] [place] [address] [phone] * CBC (06/17/2022 10:14 AM EST) White Blood Count 5.9 4.8 - 10.8 X10*3/uL [facility] Red Blood Count 5.41 4.60 - 5.80 X10*6/uL [facility] Hemoglobin 15.7 14.0 - 18.0 g/dl [facility] Hematocrit 45.5 42.0 - 52.0 % [facility] Mean Corpuscular Volume 84.1 80.0 - 98.0 fL [facility] Mean Corpuscular Hemoglobin 29.0 27.0 - 33.0 pg [facility] Mean Corpuscular HGB Conc 34.5 31.0 - 36.0 g/dl [facility] Red Cell Distribution Width 13.7 11.0 - 16.0 % [facility] Platelet Count 209 160 - 400 X10*3/uL [facility] Mean Platelet Volume 9.9 9.4 - 12.4 fL [facility] NRBC Pct Auto 0.0 0.0 - 0.2 /100WBC [facility] NRBC Abs Auto 0.000 0.0 - 0.012 X10*3/uL [facility] 06/17/2022 10:1 4 AM EST 06/17/2022 10:14 AM EST us [facility] External Provider LAB BLO OD ORDERABLES Final Result Performing Organization Address City/State/[facility] Co de Phone Number [facility] [address] [place] [phone] [phone] documented in this encounter Visit Diagnoses Not on filedocumented in this encounter Care Teams Power Switchboard Operator Relationship Specialty Start Date End Date Arsh Gamez MD [address] [place] [phone] PCP - General Internal Medicine 12/18/13 documented as of this encounter
--- OUTSIDE RECORDS SUMMARY | 2025-01-29 12:02 | XMS_ITS | Encounter Summary ---
Author Organization [facility] Address [address] [place] [address] Phone Care Team Providers Care Tow Motor Mechanic Name Role Phone Arsh Sharif MD Primary Care Provider Encounter Details Date Type Department Care Team (Late st Contact Info) Description 06/29/2022 Telephone [facility] [address] [place] [address] Sarah Phelps Social History Tobacco [...] that the hospital performing [place] the clearance two months before his surgery date in September. Surgery is for his right knee. documented in this encounter Plan of Treatment Not on file documented as of this encounter Visit Diagnoses Not on filedocumented in this encounter Care Teams Tow Motor Mechanic Relationship Specialty Start Date End Date Arsh Sharif MD [address] [place] [phone] PCP - General Internal Medicine 08/24/21 documented as of this encounter
--- OUTSIDE RECORDS SUMMARY | 2025-01-29 12:02 | XMS_ITS | Encounter Summary ---
Author Organization [employer] [facility] Address 75 [facility] 7t [place] [address] Care Team Providers Care First Assistant Manager Name Role Phone Arsh Gamez MD Primary Care Provide r Encounter Details Date Type Department Care Team (Latest Contact Info) Description 05/18/2021 Abstract [facility] CONVERSIONS Dental, Provider, DDS Social History [...] Description 03/21/2025 10:30 AM EST Office Visit [facility] MEDICINE [address] [place], [place] [phone] Arsh Gamez MD [address] [place] [address] 06/13/2025 8:00 AM EST Office Visit [facility] ADULT DENTAL [address] [place], [place] [phone] Mari Bloom documented as of this encounter Visit Diagnoses Not on filedocumented in this encounter Care Teams First Assistant Manager Relationship Specialty Start Date End Date Arsh Gamez MD [address] [place] [address] PCP - General Internal Medicine 12/18/13 documented as of this encounter
--- OUTSIDE RECORDS SUMMARY | 2025-01-29 12:02 | XMS_ITS | Encounter Summary ---
Author Organization [employer] [facility] Address 75 [facility] 7t [place] [address] Care Team Providers Care Community Services Coordinator Name Role Phone Arsh Gamez MD Primary Care Provide r Encounter Details Date Type Department Care Team (Late st Contact Info) Description 07/16/2022 Abstract [facility] ADULT DENTAL [address] [place], [place] [phone] Power Davis DMD [address] [place] [address] Social History Tobacco Use Types Packs/Day Years [...] Office Visit [facility] MEDICINE [address] [place] [address] Arsh Gamez MD [address] [place], [place] [phone] 06/13/2025 8:00 AM EST Office Visit [facility] ADULT DENTAL [address] [place] [address] Mari Bloom documented as of this encounter Visit Diagnoses Not on filedocumented in this encounter Care Teams Community Services Coordinator Relationship Specialty Start Date End Date Arsh Gamez MD [address] [place] [address] PCP - General Internal Medicine 12/18/13 documented as of this encounter
--- OUTSIDE RECORDS SUMMARY | 2025-01-29 12:02 | XMS_ITS | Encounter Summary ---
Author Organization [employer] [facility] Address [address] [facility] 7t [place] [address] Care Team Providers Care Miller Helper Name Role Phone Arsh Gamez MD Primary Care Provide r Encounter Details Date Type Department Care Team (Latest Contact Info) Description 07/09/2019 Abstract [facility] CONVERSIONS Dental, Provider, DDS Social History Tobacco [...] Description 03/21/2025 10:30 AM EST Office Visit [facility] MEDICINE [address] [place] [address] Arsh Gamez MD [address] [place] [address] 06/13/2025 8:00 AM EST Office Visit [facility] ADULT DENTAL [address] [place], [place] [phone] Mari Bloom documented as of this encounter Visit Diagnoses Not on filedocumented in this encounter Care Teams Miller Helper Relationship Specialty Start Date End Date Arsh Gamez MD [address] [place], [place] [phone] PCP - General Internal Medicine 12/18/13 documented as of this encounter
--- OUTSIDE RECORDS SUMMARY | 2025-01-29 12:02 | XMS_ITS | Encounter Summary ---
Author Organization [employer] Address [address] [facility] [address] [place] [address] Care Team Providers Care Wellness Coordinator Name Role Phone Arsh Gamez MD Primary Care Provide r Reason for Visit * Reason Comments Med Refill Encounter Details Date Type Department Care Team ([facility] st Contact Info) Description 12/28/2023 Refill [facility] WALK[facility] CENTER [address] [place], [place] [phone] Felicita Beasley, ANP [address] [place] [address] Benign prostatic hyperplasia with urinary frequency Social [...] Description 03/21/2025 10:30 AM EST Office Visit [facility] MEDICINE [address] [place] [address] Arsh Gamez MD [address] [place] [address] 06/13/2025 8:00 AM EST Office Visit [facility] ADULT DENTAL [address] [place] [address] Mari Bloom documented as of this encounter Visit Diagnoses Diagnosis Benign prostatic hyperplasia with urinary frequency documented in this encounter Additional Health Concerns Assessment Noted Time PHQ-9 Depression Total Score: 0 09/29/19 24 9:32 AM EDT documented as of this encounter Care Teams Wellness Coordinator Relationship Specialty Start Date End Date Arsh Gamez MD [address] [place] [phone] PCP - General Internal Medicine 12/18/13 documented as of this encounter
--- OUTSIDE RECORDS SUMMARY | 2025-01-29 12:02 | XMS_ITS | Encounter Summary ---
Author Organization [employer] Address 75 [facility] 7t [place] [address] Care Team Providers Care Handtools Repairer Name Role Phone Arsh Gamez MD Primary Care Provide r Reason for Visit * Reason Comments Med Refill Encounter Details Date Type Department Care Team ([facility] st Contact Info) Description 06/20/2023 Refill [facility] MEDICINE [address] [place], [place] [phone] Arsh Gamez MD [address] [place], [place] [phone] Pain Social History Tobacco Use Types Packs/Day [...] Description 03/21/2025 10:30 AM EST Office Visit [facility] MEDICINE [address] [place] [address] Arsh Gamez MD [address] [place] [address] 06/13/2025 8:00 AM EST Office Visit [facility] ADULT DENTAL [address] [place] [address] Mari Bloom documented as of this encounter Visit Diagnoses Diagnosis Pain Generalized pain documented in this encounter Care Teams Handtools Repairer Relationship Specialty Start Date End Date Arsh Gamez MD [address] [place] [address] PCP - General Internal Medicine 12/18/13 documented as of this encounter
--- OUTSIDE RECORDS SUMMARY | 2025-01-29 12:02 | XMS_ITS | Encounter Summary ---
Author Organization [facility] [facility] Address [address] [facility] [address]t [place] [address] Care Team Providers Care Corking Machine Operator Name Role Phone Arsh Gamez MD Primary Care Provide r Encounter Details Date Type Department Care Team (Late Contact Info) Description 09/23/2022 Abstract [facility] MEDICINE [address] [place] [address] [phone] Arsh Gamez MD [address] [place] [address] [phone] Social History Tobacco Use Types Packs/Day Years [...] Encounters Date Type Department Care Team (Late Contact Info) Description 03/21/2025 10:30 AM EST Office Visit [facility] MEDICINE [address] [place] [phone] Arsh Gamez MD [address] [place], [place] [phone] 06/13/2025 8:00 AM EST Office Visit [facility] ADULT DENTAL [address] [place], [place] [phone] Mari Bloom documented as of this encounter Visit Diagnoses Not on filedocumented in this encounter Care Teams Corking Machine Operator Relationship Specialty Start Date End Date Arsh Gamez MD [address] [place] [address] PCP - General Internal Medicine 12/18/13 documented as of this encounter
--- OUTSIDE RECORDS SUMMARY | 2025-01-29 12:02 | XMS_ITS | Encounter Summary ---
Author Organization [facility] Address [address] 7t [place] [address] Care Team Providers Care Sleeve Machine Tender Name Role Phone Arsh Gamez MD Primary Care Provide r Reason for Visit * Reason Onset Date Comments Pre Op 07/19/2022 Appointment Request 07/22/2022 r/s Pre Op Encounter Details Date Type Department Care Team ([facility] st Contact Info) Description 07/19/2022 Telephone [facility] [address] [place], [place] [phone] Arsh Gamez MD [address] [place], [place] [phone] Pre Op; Appointment Request (r/s Pre Op [...] am every day. Please contact pt at [phone] * Telephone Encounter - Autumn Ramirez RN [...] 10 am due to him working in [place] for 11am. * Telephone Encounter - Cami Martin RN - 07/19/2022 1:53 PM EST Call to [facility] to inform them of pt's appt. No answer. Left VM with appt details and asked for them to call pt with appointment * Telephone Encounter - Cami Martin RN - 07/19/2022 12:31 PM EST Call from Torrie at [facility]. Pt does not needs labs [...] requesting a Pre Op appt Location : [address] [place] [address] Procedure : Knee Transplant Labs: does not know EKG: does not know Anesthesia: Does not know Surgeon: does not know documented in this encounter Plan of Treatment Upcoming Encounters Date Type Department Care Team (Late st Contact Info) Description 03/21/2025 10:30 AM EST Office Visit [facility] [address] [place] [address] Arsh Gamez MD [address] [place] [address] 06/13/2025 8:00 AM EST Office Visit [facility] [address] [place] [address] Mari Bloom documented as of this encounter Visit Diagnoses Not on filedocumented in this encounter Care Teams Sleeve Machine Tender Relationship Specialty Start Date End Date Arsh Gamez MD [address] [place] [address] PCP - General Internal Medicine 12/18/13 documented as of this encounter
== END 2025-01-29 10:34 | disposition home or self-care (01) ==
LOC: HO.HUSH 09:29
PROVIDERS: PCP Internal Medicine; Visit Provider Urology
DX: N32.0 Bladder-neck obstruction (principal)
CPT/HCPCS: 99214

== ENCOUNTER → 2025-01-29 09:28 | Outpatient (BNVA) | payer MEDICARE, MEDICAID, SELFPAY | PROVIDERS: PCP Internal Medicine; Visit Provider Urology | DX: N32.0 Bladder-neck obstruction (principal); R33.9 Retention of urine, unspecified; Z13.9 Encounter for screening, unspecified | CPT/HCPCS: 52000; 81003; 99212 ==

== ENCOUNTER 2025-03-18 08:55 | Day surgery (SDC) | payer MEDICARE, MEDICAID, SELFPAY ==
--- NOTE | 2025-03-13 14:20 | HO.ANESPROP2 ---
Documented by User: Catherine Gallo NP 03/13/25 14:27 HPI - Anesthesia Eval Consult details Narrative: 65 yr old male for TUR Prostate with bipolar Button Follows [facility] for h/o tachycardia: optimized for urologic procedure. 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 The ALESSANDRA was due to hypoperfusion combined with possible urinary retention. Renal function is back to baseline. [facility] Active Problems Active Problems: All Active Problems (Updated 01/31/25 @ 10:00 by Bolivar Chacon MD) Bladder outlet obstruction (Acute) Enlarged prostate (Acute) Lower urinary tract symptoms (Acute) Severe sepsis (Acute) Acute prostatitis (Acute) Urinary retention (Acute) ALESSANDRA (acute kidney injury) (Acute) Renal colic (Acute) HTN (hypertension) (Acute) Diabetes 1.5, managed as type 2 (Acute) Lipoma of scalp (Acute) Past Medical History Medical History Prostatitis Hyperlipidemia BPH (benign prostatic hyperplasia) Diabetes 1.5, managed as type 2 HTN (hypertension) Surgical History Surgical History History of knee surgery Social History Social History Household Members: Spouse, Family and Children Housing: Apartment Do you presently have visiting nurse or other home services: No Patient Tobacco Use Status: Never used Tobacco e-Cigarette/Vaping Use: Never Used Have you been hit, kicked, punched, or otherwise hurt by someone within the past year? If so, by whom?: No Are you DNR?: No Advance Directives: No Advance Directives Information Provided: Yes service: No Meds Allergies Allergy/AdvReac Type Severity Reaction Status Date / Time nut - unspecified (NUTS) Allergy Intermediate ITCHY Verified 01/29/25 09:57 THROAT nitroglycerin (NITROGLYCERIN) AdvReac Unknown HEADACHES Verified 01/29/25 09:57 BREAD Allergy Mild RUNNY NOSE Uncoded 01/29/25 09:57 Lopid Allergy Unknown Unknown Uncoded 01/29/25 09:57 nsaids Allergy Unknown Unknown Uncoded 01/29/25 09:57 Percocet Allergy Unknown Unknown Uncoded 01/29/25 09:57 Home Medications ?Medication ?Instructions ?Recorded ?Confirmed ?Last Taken ?Type amlodipine 5 mg tablet 5 mg PO DAILY 09/16/21 03/14/25 03/18/25 History metformin 500 mg tablet,extended 500 mg PO DAILY@1800 09/16/21 03/14/25 03/17/25 History release 24 hr metoprolol succinate 25 mg 25 mg PO DAILY 09/16/21 03/14/25 03/18/25 History tablet,extended release 24 hr omeprazole 20 mg capsule,delayed 20 mg PO BID 09/16/21 03/14/25 03/17/25 History release hydralazine 50 mg tablet 75 mg PO TID 09/12/23 03/14/25 03/17/25 History Exam Narrative Narrative: EKG 09/2023 Vent. Rate : 076 BPM Atrial Rate : 076 BPM P-R Int : 162 ms QRS Dur : 128 ms QT Int : 390 ms P-R-T Axes : 051 -50 086 degrees QTc Int : 438 ms Normal sinus rhythm Left axis deviation Left ventricular hypertrophy with QRS widening ( R in aVL , [place] product ) Nonspecific T wave abnormality Abnormal ECG When compared with ECG of 07-JUL-2020 10:05, No significant change was found Documented by User: Musa Sánchez MD 03/18/25 09:20 [facility] Past Medical History Medical History Prostatitis Hyperlipidemia BPH (benign prostatic hyperplasia) Diabetes 1.5, managed as type 2 HTN (hypertension) Family History Family history of problems with anesthesia: No Surgical History Surgical History History of knee surgery History of Problems with Anesthesia: No Social History Social History Household Members: Spouse, Family and Children Housing: Apartment Do you presently have visiting nurse or other home services: No Patient Tobacco Use Status: Never used Tobacco e-Cigarette/Vaping Use: Never Used Have you been hit, kicked, punched, or otherwise hurt by someone within the past year? If so, by whom?: No Are you DNR?: No Advance Directives: No Advance Directives Information Provided: Yes service: No Meds Allergies Allergy/AdvReac Type Severity Reaction Status Date / Time nut - unspecified (NUTS) Allergy Intermediate ITCHY Verified 01/29/25 09:57 THROAT nitroglycerin (NITROGLYCERIN) AdvReac Unknown HEADACHES Verified 01/29/25 09:57 BREAD Allergy Mild RUNNY NOSE Uncoded 01/29/25 09:57 Lopid Allergy Unknown Unknown Uncoded 01/29/25 09:57 nsaids Allergy Unknown Unknown Uncoded 01/29/25 09:57 Percocet Allergy Unknown Unknown Uncoded 01/29/25 09:57 Home Medications ?Medication ?Instructions ?Recorded ?Confirmed ?Last Taken ?Type amlodipine 5 mg tablet 5 mg PO DAILY 09/16/21 03/14/25 03/18/25 History metformin 500 mg tablet,extended 500 mg PO DAILY@1800 09/16/21 03/14/25 03/17/25 History release 24 hr metoprolol succinate 25 mg 25 mg PO DAILY 09/16/21 03/14/25 03/18/25 History tablet,extended release 24 hr omeprazole 20 mg capsule,delayed 20 mg PO BID 09/16/21 03/14/25 03/17/25 History release hydralazine 50 mg tablet 75 mg PO TID 09/12/23 03/14/25 03/17/25 History Exam Airway Mallampati Class: III TM Dist: >3cm Neck ROM: Full Loose/Missing/Broken Teeth: No Heart: RRR Lungs: CTA Assessment and Plan Assessment Anesthesia Assessment: Anesthesia Plan Discussed Final Anesthetic Review Family History of Problems with Anesthesia: No History of Problems with Anesthesia: No NPO: Yes ASA Class: II Patient Risk: Low Procedure Risk: Low Anesthetic Plan Anesthetic Plan: GA Disposition: Standard PACU
[2025-03-14 13:44] VITALS: BMI 24.6
[2025-03-18] VITALS (10 sets, daily range): BP systolic 95–146; BP diastolic 51–87; PULSE 60–72; RESP 10–22; TEMP 36.1–36.6; O2SAT 88–100; BMI 24.2
[2025-03-18] MEDS: Lactated Ringers 1,000 ML 100 ML IVCONT (09:20)
[2025-03-18 09:21] LABS: Glucose, Whole Blood 126 mg/dL (60-115)
--- NOTE | 2025-03-18 10:41 | MHC.SHP ---
Pre-Procedural Eval Section A - 24 Hr Update-Section A only Date of Service: 03/18/25 The patient is an INPATIENT: No Changes since office visit: No Cold of Flu in the past 2 weeks, No New Medical Problems, No Changes in Medication and No Patient answered all questions The patient has been examined within 24 hours of the surgical procedure. The History & Physical has been completed within 30 days and I have reviewed it.: Yes Section B - Complete if H&P > 30 days Chief Complaint: Benign prostatic hyperplasia without lower urinary Details of Present Illness: Plasma button TURP Relevant Social History: None Present Medications: see Short Stay Collaborative assessment Medical History: No relevant PMH History of Previous Operations: No relevant previous surgery Allergies: Allergies Allergy/AdvReac Type Severity Reaction Status Date / Time nut - unspecified (NUTS) Allergy Intermediate ITCHY Verified 01/29/25 09:57 THROAT nitroglycerin (NITROGLYCERIN) AdvReac Unknown HEADACHES Verified 01/29/25 09:57 BREAD Allergy Mild RUNNY NOSE Uncoded 01/29/25 09:57 Lopid Allergy Unknown Unknown Uncoded 01/29/25 09:57 nsaids Allergy Unknown Unknown Uncoded 01/29/25 09:57 Percocet Allergy Unknown Unknown Uncoded 01/29/25 09:57 Review of Systems Sugical H&P ROS: Negative: Constitution, Cardiovascular, Respiratory, Neurological, Psychiatric, Hem-Onc, Allergic/Immunologic, Gastrointestinal, Genitourinary, Musculoskeletal, Integumentary, Endocrine and Eyes/Ears/Nose/Throat Exam Surgical H&P Exam: Normal: HEENT, Normal: Heart, Normal: Lungs, Normal: Extremities, Normal: Abdomen, Normal: Skin and Normal: Neurological Plan Diagnosis/Plan: Unchanged (Bipolar plasma button TURP) I have reviewed the history and physical and performed a pertinent physical examination on my patient. No changes have occurred unless specified. Time Spent With Patient Time: Total time managing care of this patient today ____ minutes.
[2025-03-18] MEDS: oxyCODONE HCl Immed Release 5 MG TABLET PO (12:36)
--- NOTE | 2025-04-03 11:19 | W.PM.OPN ---
Operative Note Operative Note Date of Service: 03/18/25 Narrative: PreOperative Diagnosis: Bladder outlet obstruction Post Operative Diagnosis: Bladder outlet obstruction Procedure: CPT 32153 - Transurethral electrosurgical prostate resection Surgeon: Dr Bolivar Chacon Anesthesia: General History of bladder outlet obstruction. Treated with alpha-shira and other medications. Still with symptoms. On cystoscopy in office has tight bladder neck. Recommendation for prostate procedure with plasma button Transurethral electrosurgical prostate resection. Size of prostate less than 40 cc. Risks and benefits have been discussed. Focus was placed on development of retrograde ejaculation which is a normal part of this procedure. Procedure: After informed consent was verified the patient was brought to the operating room and placed in a supine position. Anesthesia was administered per protocol. Patient was placed in modified dorsal lithotomy position and prepped and draped in a sterile fashion. Safety pause time-out was confirmed. Antibiotics have been given. A Twenty-four Sierra Leonean cystoscope with visual obturator was inserted per urethra. No abnormalities were found of the anterior and bulbar urethra. The prostatic urethra shows tight bladder neck . The bladder was examined and both ureteric orifices were seen in their normal positions away from the area of interest. Bladder trabeculation Grade 1. The visual obturator was removed and replaced with a plasma button resection loop. Using the plasma button incisions were made at the 5 and 7 o'clock position. The initial incision was made at the 7 o'clock position starting level with the bladder neck and in line with ureteric orifice on that side. The groove was extended distally to the area just proximal of the veru. This groove was deepened with multiple passes to define the lateral aspects of the median lobe area. The proximal portion of the groove was extended through the bladder neck and remained in line with the ureteric orifice on each side. The goal was to reveal prostate strands from trhe surgical capsule. Once clearly defined the groove was extended in the lateral direction. The 05:00 o'clock position groove was then created in a similar fashion. The intervening median lobe was then resected and enucleated tissue released into the bladder. The deep boundary of resection was defined by the prostate surgical capsule. In this case due to the smaller prostate size a decision was made not to proceed with further resection of the lateral lobes. Attention was directed toward the lateral lobes. Starting with the patient's left lateral lobe. First the 05:00 o'clock groove was further developed. This was moved in the lateral direction to undermine the tissue on the lateral side running from the bladder neck to the prostate apex. The ureteric orifice was used to guide incisions. The plasma button was placed at the 1 o'clock position and a secondary groove was developed down to the level of prostatic capsule. The creation of a second deep groove defined a segment of intervening tissue similar to a slice of orange. At the apex of the prostate the laser was used to vertically link the two grooves releasing the intervening tissue and creating a segment of tissue. This tissue was then removed with a combination of enucleation and ablation working from the apex toward the bladder neck. A similar procedure was repeated on the patient's right-hand side. The only differences being the position of the lateral groove at he 7 o'clock position and the secondary groove at the 11 o'clock position, Otherwise the procedure was developed in a mirror fashion. After the majority of tissue had been debulked remnant tissue was removed with the plasma button and the curve of the prostate followed up each side wall clearly defining the anterior remnant strip that remained between the 11 and 1 o'clock positions. At completion debris and pieces of prostate were removed from the bladder with irrigation. Both ureteric orifices were reviewed again in shown to be patent in away from any areas of energy damage. The apical area was reviewed and any stray mucosal ooze was controlled. A 22 [place]an 30 cc balloon Lopez catheter was placed into the bladder using a flexible stylet. Clear efflux was obtained upon irrigation with a Elvin piston syringe. [30] cc was placed in the balloon and gentle traction was placed. A snap was used to hold tension on the catheter to control bleeding during patient moved and transported. A drainage bag was placed. Once transportation is complete to the PACU the snap will be removed. The patient tolerated the procedure well, he was extubated in the operating and transferred in a stable condition to the recovery area. Pathology: Prostate tissue Drains: Lopez catheter
== END 2025-03-18 13:21 | disposition home or self-care (01) ==
PROVIDERS: Visit Provider Urology
PROC: 0VT08ZZ Resection of Prostate, Via Natural or Artificial Opening Endoscopic (ICD-10-PCS; CPT 52601; principal; 2025-03-18 10:50)
DX: N40.1 Benign prostatic hyperplasia with lower urinary tract symptoms (principal); N32.0 Bladder-neck obstruction; N32.89 Other specified disorders of bladder; R30.0 Dysuria; N41.9 Inflammatory disease of prostate, unspecified; I10 Essential (primary) hypertension; E13.8 Other specified diabetes mellitus with unspecified complications; Z79.84 Long term (current) use of oral hypoglycemic drugs; E78.5 Hyperlipidemia, unspecified; Z79.899 Other long term (current) drug therapy; Z88.5 Allergy status to narcotic agent; Z88.8 Allergy status to other drugs, medicaments and biological substances; Z91.018 Allergy to other foods; Z98.890 Other specified postprocedural states
CPT/HCPCS: 52601; 82947; 88305; J0131; J1956; J2003; J2704; J3010

== ENCOUNTER → 2025-03-18 08:55 | Outpatient (BNV) | payer MEDICARE, MEDICAID, SELFPAY | PROVIDERS: Visit Provider Urology | DX: N32.0 Bladder-neck obstruction (principal) | CPT/HCPCS: 52601 ==

== ENCOUNTER 2025-04-17 08:18 | Outpatient (REF) | payer MEDICARE, MEDICAID, SELFPAY ==
--- OUTSIDE RECORDS SUMMARY | 2025-04-17 08:26 | XMS_ITS | Encounter Summary ---
Author Organization [facility] Address [address] [place] [address] Phone Care Team Providers Care Hot Box Operator Name Role Phone Arsh Torres MD Primary Care Provide r Encounter Details Date Type Department Care Team (Latest Contact Info) Description 08/31/2018 Transcribe Orders [facility] [address] [facility] 2nd [place] [address] Ky De La Fuente NP [address] [place] [address] [email or web address] Change in bowel habits (Primary Dx) [...] Care Team (Late st Contact Info) Description 04/30/2025 8:15 AM EST Office Visit [facility] 10 [place] [address] Unknown, Unknown, Timothy Romeo PA-C [address] [place] [address] [email or web address] documented as of this encounter Results * IgG subclasses (08/31/2018 9:24 AM EDT) IGG 1 716 341 - 894 mg/dL [facility] [address] IGG 2 387 171 - 632 mg/dl [facility]PATH [address] DR IGG 3 39.6 18.4 - 106.0 mg/dl [facility]PATH [address] DR IGG 4 13.5 2.4 - 121.0 mg/dl [facility]PATH [address] DR TOTAL IGG 1,160 767 - 1,590 mg/dl [facility] [address] Blood 08/31/2018 9:24 AM EDT 08/31/2018 9:29 AM EDT Ky De La Fuente [employer] LAB BLOOD ORDERABLES Final Re sult [facility] [address] [place] [address] documented in this encounter Visit Diagnoses Diagnosis Change in bowel habits- Primary Other symptoms involving digestive system documented in this encounter Care Teams Hot Box Operator Relationship Specialty Start Date End Date Arsh Torres MD [address] [place] [address] [address] [place] [address] [email or web address] PCP - General 03/03/17 documented as of this encounter Additional Source Comments The information contained in this document represents components of the legal health record. It is not the complete legal health record.[facility]
--- OUTSIDE RECORDS SUMMARY | 2025-04-17 08:26 | XMS_ITS | Encounter Summary ---
Author Organization [facility] Address [address] [place] [phone] Phone Care Team Providers Care Records Supervisor Name Role Phone Arsh Torres MD Primary Care Provide r Encounter Details Date Type Department Care Team (Latest Contact Info) Description 06/16/2021 Transcribe Orders [address] [place] [address] Della Lopez PA [address] [address] [email or web address] BPH without obstruction/lower urinary tract symptoms (Primary [...] Description 04/30/2025 8:15 AM EST Office Visit [facility] 10 [place] [address] Unknown, UnknownMD Lissette Mary-Laura, PA-C [address] [place] [address] [email or web address] documented as of this encounter Results * PSA (screening) (06/16/2021 9:38 AM EST) PSA 1.33 0 - 4.00 ng/mL [facility] Blood 06/16/2021 9:38 AM EST 06/16/2021 9:40 AM EST us Della WEEKS LAB BLOOD BKR ORDERABLES Final R esult [facility] [address] [place] [address] documented in this encounter Visit Diagnoses Diagnosis BPH without obstruction/lower urinary tract symptoms- Primary Screening for prostate cancer Special screening for malignant neoplasm of prostate documented in this encounter Care Teams Records Supervisor Relationship Specialty Start Date End Date Arsh Torres MD [address] [place] [address] [address] [place] [address] [email or web address] PCP - General 03/03/17 documented as of this encounter Additional Source Comments The information contained in this document represents components of the legal health record. It is not the complete legal health record.[facility]
--- OUTSIDE RECORDS SUMMARY | 2025-04-17 08:26 | XMS_ITS | Encounter Summary ---
Author Organization [facility] Address [address] [place] [phone] Phone Care Team Providers Care Parts Room Clerk Name Role Phone Arsh Torres MD Primary Care Provide r Encounter Details Date Type Department Care Team (Latest Contact Info) Description 01/12/2019 Transcribe Orders Virtual Department [address] [place] [address] Reymundo Salvador MD [address] [place] [address], [place] [address] [email or web address] Cyst of kidney, acquired (Primary Dx) Social [...] Description 04/30/2025 8:15 AM EST Office Visit [facility] 10 [place] [address] Unknown, Unknown, MD Hohol, Maia-Mehnaz, PA-[address] [address] [email or web address] documented as of this encounter Results * US Kidneys (04/23/2019 8:11 AM EST) Anatomical Region Laterality Modality Abdomen, Kidney Ultrasound 04/23/2019 9:15 AM EST Impressions 04/23/2019 9:38 AM EST Subcentimeter bilateral simple renal cysts. Nonobstructing 4 mm RIGHT renal calculus. No hydronephrosis. POS - [id number] Narrative 04/23/2019 9:38 AM EST EXAM: US [...] RIGHT renal calculus. No hydronephrosis. POS - [id number] us Reymundo Salvador MD [facility] RENAL Final Result documented in this encounter Visit Diagnoses Diagnosis Cyst of kidney, acquired- Primary Acquired cyst of kidney Cyst of kidney, acquired Acquired cyst of kidney documented in this encounter Care Teams Parts Room Clerk Relationship Specialty Start Date End Date Arsh Torres MD [address] [place] [address]. [address] [place] [address] [email or web address] PCP - General 03/03/17 documented as of this encounter Additional Source Comments The information contained in this document represents components of the legal health record. It is not the complete legal health record.[facility]
--- OUTSIDE RECORDS SUMMARY | 2025-04-17 08:26 | XMS_ITS | Encounter Summary ---
Author Organization [facility] Address [address] [place] [address] Phone Care Team Providers Care Hardwood Faller Name Role Phone Arsh Torres MD Primary Care Provide r Encounter Details Date Type Department Care Team (Late st Contact Info) Description 08/17/2023 Transcribe Orders Virtual Department [address] [place] [address] Sarah Mojica PA-C [address] [place] [phone] [email or web address] Cyst of kidney, acquired (Primary Dx); Calculus [...] Description 04/30/2025 8:15 AM EST Office Visit [facility] 10 [place] [address] Unknown, Unknown, Timothy Romeo PA-C [address] [address] [email or web address] documented as of this encounter Results * US Kidneys (09/05/2023 2:42 PM EDT) Anatomical Region Laterality Modality Abdomen, Kidney Ultrasound 09/06/2023 8:36 PM EDT Impressions 09/07/2023 6:04 AM EDT No hydronephrosis or shadowing nephrolithiasis. Simple appearing subcentimeter bilateral renal cysts. Prostatomegaly. Narrative 09/07/2023 6:04 AM EDT US KIDNEYS Referring clinician's provided indication for this examination in Epic: Outside Radiology Order; CYST OF KIDNEY, CALCULUS [...] clinician's provided indication for this examination in Epic:Outside Radiology Order; CYST OF KIDNEY, CALCULUS OF KIDNEY TECHNIQUE: Kidney Ultrasound. COMPARISON: US KIDNEYS 2022- FINDINGS: Right Kidney: Size: 10.0 cm Simple [...] kidney documented in this encounter Care Teams Hardwood Faller Relationship Specialty Start Date End Date Arsh Torres MD [address] [place] [address] [address] [place] [phone] [email or web address] PCP - General 03/03/17 documented as of this encounter Additional Source Comments The information contained in this document represents components of the legal health record. It is not the complete legal health record.[facility]
--- OUTSIDE RECORDS SUMMARY | 2025-04-17 08:26 | XMS_ITS | Encounter Summary ---
Author Organization [facility] Address [address] [place] [address] Phone Care Team Providers Care Umbrella Tipper Name Role Phone Arsh Torres MD Primary Care Provide r Encounter Details Date Type Department Care Team (Latest Contact Info) Description 04/27/2018 Transcribe Orders [facility] Phleb Jeanine [address] [facility] 2[address] [place] [address] Roselia [place] PA-C [address], [address] [place] [address] [email or web address] Fecal urgency (Primary Dx); Lower abdominal pain [...] Description 04/30/2025 8:15 AM EST Office Visit [facility] 10 [place] [address] Unknown, UnknownMD Lissette Mary-Laura, PA-C [address] [place] [phone] [email or web address] documented as of this encounter Results * H. pylori antigen, stool (05/12/2018 8:38 AM EST) [facility] H.PYLORI AG Negative Negative [facility] DPT OF LAB MED AND PAT+ Stool (Stool) 05/12/2018 8:3 8 AM EST 05/12/2018 9:30 AM EST us Roselia [place] PA-C LAB BODY FLUIDS AND STOOL ORDER ANDIE Final Result [facility] DPT OF LAB MED AND PAT+ [address] [place] [address] * Giardia antigen screen (05/12/2018 8:38 AM EST) ST GIARDIA ANTIGEN Negative Negative [facility] DPT OF LAB MED AND PAT+ Stool (Stool) 05/12/2018 8:3 8 AM EST 05/12/2018 9:30 AM EST us Roselia [place] PA-C LAB BODY FLUIDS AND STOOL ORDER ANDIE Final Result Performing Organization Address City/[facility]/ZIP Co de Phone Number [facility] DPT OF LAB MED AND PAT+ [address] [place] [address] * Fecal leukocyte examination (05/12/2018 8:38 AM EST) Specimen Source/ Description STOOL STOOL [facility] Special Requests None STORY TELLER [facility] GRAM STAIN NO WBC'S [facility] Report Status 05/13/2018 FINAL [facility] Stool (Stool) 05/12/2018 8:3 8 AM EST 05/12/2018 9:29 AM EST us Roselia [place] PA-C LAB BODY FLUIDS AND STOOL ORDER ANDIE Final Result [address] [address] * Stool culture (05/12/2018 8:38 AM EST) Specimen Source/ Description STOOL STOOL STOOL [facility] Special Requests None [facility] Culture/Test NO SALMONELLA, SHIGELLA OR CAMPYLOBACTER ISOLATED [facility] Report Status 05/15/2018 FINAL [facility] Stool (Stool) 05/12/2018 8:3 8 AM EST 05/12/2018 9:29 AM EST us Roselia [place] PA-C LAB MICROBIOLOGY CULTURE ORDERA BLES Final Result [address] [address] * Ova and parasites, stool (05/04/2018 7:00 AM EST) Specimen Source/ Description STOOL STOOL [facility] Special Requests None [facility] DIRECT EXAM NO PARASITES FOUND BY DIRECT OR CONCENTRATION METHODS [facility] DIRECT EXAM No parasites found by Trichrome Stain [facility] Report Status 05/15/2018 FINAL [facility] Stool (Stool) 05/04/2018 7:0 0 AM EST 05/12/2018 9:31 AM EST us Roselia [place] PA-C LAB BODY FLUIDS AND STOOL ORDER ANDIE Final Result [address] [address] * Ova and parasites, stool (05/03/2018 7:00 AM EST) Specimen Source/ Description STOOL PARA JOSE STOOL [facility] Special Requests None [facility] DIRECT EXAM NO PARASITES FOUND BY DIRECT OR CONCENTRATION METHODS [facility] DIRECT EXAM No parasites found by Trichrome Stain [facility] Report Status 05/15/2018 FINAL [facility] Stool (Stool) 05/03/2018 7:0 0 AM EST 05/12/2018 9:31 AM EST us Roselia [place] PA-C LAB BODY FLUIDS AND STOOL ORDER ANDIE Final Result Performing Organization Address [facility] Co de Phone Number [address] [address] * Ova and parasites, stool (05/02/2018 7:00 AM EST) Specimen Source/ Description STOOL PARA JOSE STOOL [facility] Special Requests None [facility] DIRECT EXAM NO PARASITES FOUND BY DIRECT OR CONCENTRATION METHODS [facility] DIRECT EXAM No parasites found by Trichrome Stain [facility] Report Status 05/15/2018 FINAL [facility] Stool (Stool) 05/02/2018 7:0 0 AM EST 05/12/2018 9:32 AM EST us Roselia [place] PA-C LAB BODY FLUIDS AND STOOL ORDER ANDIE Final Result Performing Organization Address [facility] Co de Phone Number [address] [address] * TSH (04/27/2018 9:56 AM EST) TSH 1.65 0.27 - 4.20 uIU/mL [facility] Blood 04/27/2018 9:56 AM EST 04/27/2018 10:03 AM EST us Roselia [place] PA-C LAB BLOOD BKR ORDERABLES Final Result Performing Organization Address City/[facility] Co de Phone Number [address] [address] * C-Reactive Protein (04/27/2018 9:56 AM EST) C REACTIVE PROTEIN 0.7 0.0 - 4.0 mg/L [facility] Blood 04/27/2018 9:56 AM EST 04/27/2018 10:03 AM EST us Roselia [place] PA-C LAB BLOOD BKR ORDERABLES Final Result [address] [address] * (ABNORMAL) Comprehensive metabolic panel (04/27/2018 9:56 AM EST) SODIUM 139 133 - 146 mmol/L [facility] POTASSIUM 4.2 3.3 - 5.1 mmol/L [facility] CHLORIDE 102 96 - 108 mmol/L [facility] CO2 24 21 - 35 mmol/L [facility] BUN 24(H) 6 - 19 mg/dL [facility] CREATININE 1.10 0.5 - 1.5 mg/dL [facility] GLUCOSE 112(H) 70 - 99 mg/dL [facility] ALBUMIN 4.3 3.9 - 4.8 g/dL [facility] TOTAL PROTEIN 7.2 6.5 - 8.0 g/dL [facility] CALCIUM 9.7 8.4 - 10.3 mg/dL [facility] ALKALINE PHOSPHATASE 85 39 - 117 U/L [facility] TOTAL BILIRUBIN 0.5 0.0 - 1.2 mg/dL [facility] AST 23 0 - 37 U/L [facility] ALT 20 0 - 40 U/L [facility] GLOBULIN 2.9 1 - 4.8 g/dL [facility] EGFR 74 >59 mL/min/1.7 3m2 [facility] Comment:If patient is black, multiply result by 1.159. Estimated glomerular filtration rate calculated using the CKD-EPI equation. ANION GAP 17 10 - 20 mmol/L [facility] Blood 04/27/2018 9:56 AM EST 04/27/2018 10:03 AM EST us Roselia [place] PA-C LAB BLOOD BKR ORDERABLES Final Result [address] [address] * (ABNORMAL) CBC (04/27/2018 9:56 AM EST) WBC 6.09 3.40 - 11.20 K/uL [facility] RBC 5.72(H) 4.50 - 5.50 M/uL [facility] HGB 16.5 13.0 - 17.0 g/dL [facility] HCT 48.1 40.0 - 51.0 % [facility] PLT 214 130 - 400 K/uL [facility] MCV 84.1 79.0 - 98.0 fL [facility] MCH 28.8 27.0 - 34.8 pg [facility] MCHC 34.3 31.5 - 36.0 g/dL [facility] RDW 13.2 10.8 - 14.6 % [facility] MPV 10.6 9.4 - 12.4 [facility] NRBC 0.00 0.00 /100 WBCs [facility] ABSOLUTE NRBC 0.00 0.00 K/uL [facility] Blood 04/27/2018 9:56 AM EST 04/27/2018 10:03 AM EST Roselia [place] PA-C LAB BLOOD BKR ORDERABLES Final Result [address] [address] * Immunoglobulin A (04/27/2018 9:56 AM EST) IgA 361 70 - 400 mg/dL [facility] Blood 04/27/2018 9:56 AM EST 04/27/2018 10:03 AM EST Roselia [place] PA-C LAB BLOOD BKR ORDERABLES Final Result Performing Organization Address City/[facility]/ZIP Co de Phone Number [address] [address] * Tissue transglutaminase IgA (04/27/2018 9:56 AM EST) TTG IGA ANTIBODY <1.2 <4.0 (Negative) U/mL [facility] DPT OF LAB MED AND PAT+ Blood 04/27/2018 9:56 AM EST 04/27/2018 10:03 AM EST us Roselia [place] PA-C LAB BLOOD BKR ORDERABLES Final Result [facility] DPT OF LAB MED AND PAT+ [address] [place] [address] documented in this encounter Visit Diagnoses Diagnosis Fecal urgency- Primary Lower abdominal pain Abdominal pain, other specified site documented in this encounter Care Teams Umbrella Tipper Relationship Specialty Start Date End Date Arsh Torres MD [address] [place] [address] [place] [phone] [email or web address] PCP - General 03/03/17 documented as of this encounter Additional Source Comments The information contained in this document represents components of the legal health record. It is not the complete legal health record.[facility]
--- OUTSIDE RECORDS SUMMARY | 2025-04-17 08:26 | XMS_ITS | Encounter Summary ---
Author Organization [employer] Address [address] [facility] 7t [place] [address] Care Team Providers Care Exploitation Analyst Name Role Phone Arsh Gamez MD Primary Care Provide r Reason for Visit * Reason Comments Med Refill Encounter Details Date Type Department Care Team ([facility] st Contact Info) Description 04/14/2025 Refill [facility] MEDICINE [address] [place], [place] [phone] Arsh Gamez MD [address] [place], [place] [phone] Social History Tobacco Use Types Packs/Day Years [...] Care Team (Late st Contact Info) Description 04/29/2025 3:00 PM EST Office Visit [facility] ADULT DENTAL [address] [place] [address] 05/22/2025 2:45 PM EST Office Visit [facility] ADULT DENTAL [address] [place] [address] Eleno Sequeira DDS [address] [place] [address] 06/13/2025 8:00 AM EST Office Visit [facility] ADULT DENTAL [address] [place] [address] Mari Bloom documented as of this encounter Goals Goal Patient Goal Type Associated Problems Recent Progress Patient-Stated? Author Help patients manage their type 2 diabetes Care Plan Help patients manage their type 2 diabetes No James Baird Weekly blood pressure task Care Plan Weekly blood pressure task No James Baird Help patients manage their type 2 diabetes Care Plan Help patients manage their type 2 diabetes No James Baird Patient has chronic kidney disease Care Plan Patient has chronic kidney disease No James Baird Weekly blood pressure task Care Plan Weekly blood pressure task No James Baird Patient has chronic kidney disease Care Plan Patient has chronic kidney disease No James Baird Weekly blood pressure task Care Plan Weekly blood pressure task No Sarah Pineda LPN Weekly blood pressure task Care Plan Weekly blood pressure task No Sarah Pineda LPN Patient has chronic kidney disease Care Plan Patient has chronic kidney disease No Sarah Pineda LPN Patient has chronic kidney disease Care Plan Patient has chronic kidney disease No Sarah Pineda LPN Weekly blood pressure task Care Plan Weekly blood pressure task No Arsh Gamez MD Weekly blood pressure task Care Plan Weekly blood pressure task No Arsh Gamez MD Patient has chronic kidney disease Care Plan Patient has chronic kidney disease No Arsh Gamez MD Patient has chronic kidney disease Care Plan Patient has chronic kidney disease No Arsh Gamez MD Weekly blood pressure task Care Plan Weekly blood pressure task No Latoya Puentes Weekly blood pressure task Care Plan Weekly blood pressure task No Latoya Puentes Patient has chronic kidney disease Care Plan Patient has chronic kidney disease No Latoya Puentes Patient has chronic kidney disease Care Plan Patient has chronic kidney disease No Latoya Puentes documented as of this encounter Visit Diagnoses Not on filedocumented in this encounter Additional Health Concerns Active Problems Noted Date Diagnosed Date Help patients manage their type 2 diabetes 04/01 Weekly blood pressure task 04/01/2025 Help patients manage their type 2 diabetes 04/01 Patient has chronic kidney disease 04/01/2025 Weekly blood pressure task 04/01/2025 Patient has chronic kidney disease 04/01/2025 Weekly blood pressure task 04/02/2025 Weekly blood pressure task 04/02/2025 Patient has chronic kidney disease 04/02/2025 Patient has chronic kidney disease 04/02/2025 Weekly blood pressure task 04/03/2025 Weekly blood pressure task 04/03/2025 Patient has chronic kidney disease 04/03/2025 Patient has chronic kidney disease 04/03/2025 Weekly blood pressure task 04/04/2025 Weekly blood pressure task 04/04/2025 Patient has chronic kidney disease 04/04/2025 Patient has chronic kidney disease 04/04/2025 Assessment Noted Time PHQ-9 Depression Total Score: 0 08/05/20 25 8:55 AM EDT documented as of this encounter Care Teams Exploitation Analyst Relationship Specialty Start Date End Date Arsh Gamez MD [address] [place] [id number] PCP - General Internal Medicine 12/18/13 documented as of this encounter
--- OUTSIDE RECORDS SUMMARY | 2025-04-17 08:26 | XMS_ITS | Encounter Summary ---
Author Organization [facility] Address [address] [place] [address] Phone Care Team Providers Care Geographic Information Scientist Name Role Phone Arsh Torres MD Primary Care Provide r Reason for Referral * MRI/CAT Scan - Closed Specialty Diagnoses / Procedures Referred By Contac t Referred To Contact Procedures CT Abdomen/Pelvis Outside (No Interpretation) System, Provider Not In, [facility] [address] [address] Referral ID Status Reason Start Date Expiration Date Visits Re quested Visits Authorized [id number] Closed 09/18/2018 09/18/2019 1 1 Encounter Details Date Type Department Care Team (Late st Contact Info) Description 09/18/2018 Ancillary Orders [facility],Outside Imaging [address] [place] [address] System, Provider Not In, [facility] [address] [address] Social History Tobacco Use Types Packs/Day Years [...] Description 04/30/2025 8:15 AM EST Office Visit [facility] [address] [place] [address] Unknown, Unknown, Timothy Romeo PA-C 10 [facility] 2 [place] [address] [email or web address] documented as of this encounter [...] on filedocumented in this encounter Care Teams Geographic Information Scientist Relationship Specialty Start Date End Date Arsh Torres MD [address] [place] [address] [address] [place] [phone] [email or web address] PCP - General 03/03/17 documented as of this encounter Additional Source Comments The information contained in this document represents components of the legal health record. It is not the complete legal health record.[facility]
--- OUTSIDE RECORDS SUMMARY | 2025-04-17 08:26 | XMS_ITS | Clinical Summary ---
Author Organization [facility] Address [address] [place] [phone] Phone Care Team Providers Care System Dispatcher Name Role Phone Arsh Torres MD Primary [...] coronary syndromes including unstable or severe angina, CA within 1 month, severe CHF, high grade [...] EDT): Patient follows with nephrology at the [facility] in [place] for CKD stage 2, nephrolithiasis, renal cysts, [...] 01/24/2024 9:32 AM EDT Plan of Treatment Upcoming Encounters Date Type Department Care Team (Late st Contact Info) Description 04/30/2025 8:15 AM EST Office Visit [facility] 10 [place] [address] Unknown, Unknown, MD Mclaughlin, JORGE Aguirre [address] [address] Health Maintenance Due Date Last Done Comments DEPRESSION SCREENING 1972 HEPATITIS C SCREENING 02/24/1978 HIV ONE-TIME SCREENING (18-65 YEARS) 02/24/1978 PNEUMOCOCCAL VACCINES (50+ years) (1 of 2 - PCV) 02/24/1979 COLOGUARD 02/24/2005 FIT TEST 02/24/2005 FOBT 02/24/2005 SIGMOIDOSCOPY 02/24/2005 VIRTUAL COLONOSCOPY 02/24/2005 ZOSTER VACCINES (1 of 2) 02/24/2010 DIABETIC EYE EXAM 12/18/2021 HEMOGLOBIN A1C 02/02/2024 08/02/2023, 07/14, 07/13/2022, Additional history exists LIPID PANEL 05/25/2024 05/25/2023, 04/16, 02/16/2014 BLOOD PRESSURE 07/23/2024 01/24/2024 CREATININE LEVEL 08/01/2024 08/02/2023, 02/2024, 05/10/2023, Additional history exists POTASSIUM LEVEL 08/01/2024 08/02/2023, 05/16, 05/10/2023, Additional history exists INFLUENZA VACCINE (#1) 2024 , 03/17/2022, 05/14/2021, Additional history exists COVID-19 VACCINE ( season) 2025 04/29/2021, 07/22/2020, 06/24/2020 COLONOSCOPY 06/11/2025 06/11/2020 COLORECTAL CANCER SCREENING 06/11/2025 Adult Td,Tdap Booster 08/13/2025 08/14/2015, 000 RSV VACCINE (1 - 1-dose 75+ series) 02/24/2035 SMOKING STATUS SCREENING (Once After 26 Yrs) [...] this topic Medical Devices Implanted Type Area Clipper Machine Operator Device Identifier Shelf Expiration Date Model / Serial / Lot Tray Tibial Knee [place] Rozet Aoy Rt Medial Size B - [id number] Implanted:Qty: 1 on 09/28/2022 by Andrew Huntley MD at [facility] STANDARD Right: Knee [employer] 12/10/2031 [id number] / / [id number] Knee Bearing 4mm Sm Tibial [place] Arcom Polyethylene Anatomic Meniscal Rt - [id number] Implanted:Qty: 1 on 09/28/2022 by Andrew Huntley MD at [facility] STANDARD Right: Knee [employer] 04/30/2024 [id number] / / [id number] Screw In Back Knee Implant Small Component Femoral [place] Rozet Alloy Twin Pegged Cemented Partial - [id number] Implanted:Qty: 1 on 09/28/2022 by Andrew Huntley MD at [facility] Right: Knee [employer] 05/02/2032 [id number] / / [id number] Bone Cement Antibiotic Refobacin - [id number] Implanted:Qty: 1 on 09/28/2022 by Andrew Huntley MD at [facility] Right: Knee [employer] 12/13/2024 [id number] / / [id number] Procedures Procedure Name Priority Date/Time Associated Diagnosis Comments HEMOGLOBIN A1C Routine 08/02/2023 4:07 PM EDT Type 2 diabetes mellitus with other specified complication, unspecified whether nursing home insulin use BASIC METABOLIC PANEL (BMP) Routine 08/02/2023 4:07 PM EDT Primary localized osteoarthrosis of left lower leg LIPID PANEL Routine 05/25/2023 7:40 AM EST Type 2 diabetes mellitus with other specified complication, unspecified whether nursing home insulin use HM COLONOSCOPY FOR RESULT ENTRY ONLY Routine 06/11/2020 from Last 3 Months or Most Recently Relevant to Health Maintenance Results * (ABNORMAL) Hemoglobin A1c (08/02/2023 4:07 PM EDT) HEMOGLOBIN A1C 6.5(H) 4.3 - 5.8 % [facility] Blood 08/02/2023 4:07 PM EDT 08/02/2023 4:13 PM EDT Andrew Huntley MD LAB BLOOD BKR ORDERABLES Danni boucher Result Performing Organization Address City/[facility]/ZIP Co de Phone Number [address] [address] * (ABNORMAL) Basic metabolic panel (08/02/2023 4:07 PM EDT) SODIUM 139 133 - 146 mmol/L [facility] CHLORIDE 102 96 - 108 mmol/L [facility] POTASSIUM 3.8 3.3 - 5.1 mmol/L [facility] CO2 26 21 - 35 mmol/L [facility] BUN 20(H) 6 - 19 mg/dL [facility] CREATININE 1.10 0.5 - 1.5 mg/dL [facility] GLUCOSE 109(H) 70 - 99 mg/dL [facility] CALCIUM 9.2 8.4 - 10.3 mg/dL [facility] EGFR 75 >59 mL/min/1.7 3m2 [facility] Comment:Estimated glomerular filtration rate calculated using the CKD-EPI refit equation. ANION GAP 15 10 - 20 mmol/L [facility] Blood 08/02/2023 4:07 PM EDT 08/02/2023 4:13 PM EDT Andrew Huntley MD LAB BLOOD BKR ORDERABLES Danni l Result Performing Organization Address [facility] Co de Phone Number [address] [address] * (ABNORMAL) Lipid panel (05/25/2023 7:40 AM EST) HDL 27 mg/dL [facility] Comment: Interpretation <40 mg/dL: Low HDL cholesterol (major risk factor for CHD) Greater than or equal to 60 mg/dL: High HDL cholesterol ( negative risk factor for CHD) HDL - cholesterol is affected by a number of factors, e.g. smoking, excerise, hormones, sex and age. CHOLESTEROL 179 0 - 240 mg/dL [facility] TRIGLYCERIDES 399(H) 30 - 160 mg/dL [facility] LDL 72 50 - 129 mg/dL [facility] Comment: LDL levels in terms of risk for coronary heart disease: <100 mg/dL: Optimal 100-129 mg/dL: Near or above optimal 130-159 mg/dL: Borderline high 160-189 mg/dL: High >190 mg/dL: Very High CARDIAC RISK RATIO 6.6(H) 3.4 - 5.0 C [facility] Blood 05/25/2023 7:40 AM EST 05/25/2023 7:42 AM EST Sonu Campbell DO LAB BLOOD BKR ORDERABLES Danni l Result [facility] [address] [place] [address] * COLONOSCOPY FOR RESULT ENTRY ONLY (06/11/2020) Colonoscopy Repeat in 5 years Historical Provider MD HEALTH MAINTENANCE Final Result from Last 3 Months or Most Recently Relevant to Health Maintenance Insurance [place] [id number] [facility] MEDICARE PART A & B MEDICARE PART A & B MEDICARE PART A & [place] B [facility] [employer] MEDICARE PART A & B Advance Directives For more information, please contact: [phone] (9AM - 5PM [facility], Tuesday-Tuesday) * Full Code (Presumed) (Latest Code Status on File) Date Activated Date Inactivated Comments 05/24/2017 9:48 AM 05/24/2017 7:05 PM Care Teams System Dispatcher Relationship Specialty Start Date End Date Arsh Torres MD [address] [place], [place] [address] [address] [place] [phone] [email or web address] PCP - General 03/03/17 Additional Source Comments The information contained in this document represents components of the legal health record. It is not the complete legal health record.[facility]
--- OUTSIDE RECORDS SUMMARY | 2025-04-17 08:26 | XMS_ITS | Encounter Summary ---
Author Organization [facility] Address [address] [place] [address] Phone Care Team Providers Care Chart Picker Name Role Phone Arsh Torres MD Primary Care Provide r Encounter Details Date Type Department Care Team (Late st Contact Info) Description 03/17/2023 Transcribe Orders [facility] Specimen Processing [address] [place] [address] Arsh Torres MD [address] [facility] [address] [place] [phone] [email or web address] Social History Tobacco [...] Description 04/30/2025 8:15 AM EST Office Visit [facility] Gastroenterology Clinic [address] [place] [address] Unknown, Unknown, Timothy Romeo PA-C [address] [address] [email or web address] documented as of this encounter Visit Diagnoses Not on filedocumented in this encounter Care Teams Chart Picker Relationship Specialty Start Date End Date Arsh Torres MD [address] [place] [address] [address] [place] [address] [email or web address] PCP - General 03/03/17 documented as of this encounter Additional Source Comments The information contained in this document represents components of the legal health record. It is not the complete legal health record.[facility]
--- OUTSIDE RECORDS SUMMARY | 2025-04-17 08:26 | XMS_ITS | Encounter Summary ---
Author Organization [employer] Address [address] [facility] 7t [place] [address] Care Team Providers Care Chop Saw Operator Name Role Phone Arsh Gamez MD Primary Care Provide r Reason for Visit * Reason Comments Med Change Request Encounter Details Date Type Department Care Team ([facility] Contact Info) Description 04/01/2025 Refill [facility] MEDICINE 230 [place], [place] [phone] Arsh Gamez MD 230 [place], [place] [phone] Social History Tobacco Use Types Packs/Day Years [...] Description 04/29/2025 3:00 PM EST Office Visit [facility] ADULT DENTAL 505 [place] [address] 05/22/2025 2:45 PM EST Office Visit [facility] ADULT DENTAL 505 [place] [address] Eleno Sequeira DDS 230 [place] [address] 06/13/2025 8:00 AM EST Office Visit [facility] ADULT DENTAL 230 [place] [address] Mari Bloom documented as of this encounter [...] has chronic kidney disease No James Baird documented as of this encounter Visit Diagnoses Not on filedocumented in this encounter Additional Health Concerns Active Problems Noted Date Diagnosed Date Help patients manage their type 2 diabetes 04/01 Weekly blood pressure task 04/01/2025 Help patients manage their type 2 diabetes 04/01 Patient has chronic kidney disease 04/01/2025 Weekly blood pressure task 04/01/2025 Patient has chronic kidney disease 04/01/2025 Assessment Noted Time PHQ-9 Depression Total Score: 0 12/19/19 25 8:55 AM EDT documented as of this encounter Care Teams Chop Saw Operator Relationship Specialty Start Date End Date Arsh Gamez MD [address] [place] [address] PCP - General Internal Medicine 12/18/13 documented as of this encounter
--- OUTSIDE RECORDS SUMMARY | 2025-04-17 08:26 | XMS_ITS | Encounter Summary ---
Author Organization [facility] Address [address] [place] [address] Phone Care Team Providers Care Rackman Name Role Phone Arsh Torres MD Primary Care Provide r Encounter Details Date Type Department Care Team (Late st Contact Info) Description 03/01/2023 Procedure Pass [facility], [address] [place] [address] Social History Tobacco Use Types Packs/Day Years [...] Description 04/30/2025 8:15 AM EST Office Visit [facility] Gastroenterology Clinic [address] [place] [address] Unknown, Unknown, Timothy Romeo PA-C [address] [address] [email or web address] documented as of this encounter Visit Diagnoses Not on filedocumented in this encounter Care Teams Rackman Relationship Specialty Start Date End Date Arsh Torres MD [address] [place] [address] [address] [place] [phone] [email or web address] PCP - General 03/03/17 documented as of this encounter Additional Source Comments The information contained in this document represents components of the legal health record. It is not the complete legal health record.[facility]
--- OUTSIDE RECORDS SUMMARY | 2025-04-17 08:26 | XMS_ITS | Encounter Summary ---
Author Organization [facility] Address [address] [place] [address] Phone Care Team Providers Care Perch Mender Name Role Phone Arsh Torres MD Primary Care Provide r Encounter Details Date Type Department Care Team (Latest Contact Info) Description 04/01/2020 Transcribe Orders [facility] Phleb Jeanine 10 [facility] 2nd [place] [address] Roselia Blanco PA-C [address], [address]. [address] [place] [address] [email or web address] Pancreatic cyst (Primary Dx); Constipation, unspecified constipation [...] Description 04/30/2025 8:15 AM EST Office Visit [facility] Gastroenterology Clinic 10 [place] [address] Unknown, Unknown, Timothy Romeo PA-C [address] [place] [address] [email or web address] documented as of this encounter Results * TSH (04/01/2020 3:50 PM EST) Pathologist [facility] TSH 1.46 0.27 - 4.20 uIU/mL [facility] Blood 04/01/2020 3:50 PM EST 04/01/2020 3:55 PM EST us Roselia Blanco PA-C LAB BLOOD BKR ORDERABLES Final Result [address] [address] * C-Reactive Protein (04/01/2020 3:50 PM EST) Pathologist [facility] C REACTIVE PROTEIN 1.2 0.0 - 4.0 mg/L [facility] Blood 04/01/2020 3:50 PM EST 04/01/2020 3:55 PM EST us Roselia Blanco PA-C LAB BLOOD BKR ORDERABLES Final Result [address] [address] * Comprehensive metabolic panel (04/01/2020 3:50 PM EST) Pathologist [facility] SODIUM 139 133 - 146 mmol/L [facility] POTASSIUM 4.3 3.3 - 5.1 mmol/L [facility] CHLORIDE 106 96 - 108 mmol/L [facility] CO2 23 21 - 35 mmol/L [facility] BUN 19 6 - 19 mg/dL [facility] CREATININE 1.00 0.5 - 1.5 mg/dL [facility] GLUCOSE 98 70 - 99 mg/dL [facility] ALBUMIN 4.3 3.9 - 4.8 g/dL [facility] TOTAL PROTEIN 7.1 6.5 - 8.0 g/dL [facility] CALCIUM 9.3 8.4 - 10.3 mg/dL [facility] ALKALINE PHOSPHATASE 80 39 - 117 U/L [facility] TOTAL BILIRUBIN 0.3 0.0 - 1.2 mg/dL [facility] AST 24 0 - 37 U/L [facility] ALT 24 0 - 40 U/L [facility] GLOBULIN 2.8 1 - 4.8 g/dL [facility] EGFR 81 >59 mL/min/1.7 3m2 [facility] Comment:Estimated glomerular filtration rate calculated using the CKD-EPI equation. ANION GAP 14 10 - 20 mmol/L [facility] Blood 04/01/2020 3:50 PM EST 04/01/2020 3:55 PM EST Roselia Blanco PA-C LAB BLOOD BKR ORDERABLES Final Result Performing Organization Address City/State/[facility] Co de Phone Number [address] [address] * (ABNORMAL) CBC (04/01/2020 3:50 PM EST) WBC 6.96 4.00 - 11.00 K/uL [facility] Comment:Note Reference Range updates to all CBC and Differential results. RBC 5.78(H) 3.90 - 5.69 M/uL [facility] HGB 15.3 12.4 - 17.3 g/dL [facility] Comment:Note updated Referen ce Ranges for all CBC and Differential results. HCT 46.1 37.0 - 51.0 % [facility] PLT 252 140 - 430 K/uL [facility] MCV 79.8 78.0 - 97.0 fL [facility] MCH 26.5 25.0 - 33.0 pg [facility] MCHC 33.2 32.0 - 36.0 g/dL [facility] RDW 14.5 11.0 - 15.0 % [facility] MPV 10.5 8.4 - 12.8 [facility] NRBC 0.00 0 /100 WBCs [facility] ABSOLUTE NRBC 0.00 0 K/uL [facility] Blood 04/01/2020 3:50 PM EST 04/01/2020 3:55 PM EST Roselia Blanco PA-C LAB BLOOD BKR ORDERABLES Final Result Performing Organization Address [facility]/ZIP Co de Phone Number [address] [address] * Immunoglobulin A (04/01/2020 3:50 PM EST) IgA 393 70 - 400 mg/dL [facility] Blood 04/01/2020 3:50 PM EST 04/01/2020 3:55 PM EST Roselia Blanco PA-C LAB BLOOD BKR ORDERABLES Final Result Performing Organization Address [facility] Co de Phone Number [address] [address] * Tissue transglutaminase IgA (04/01/2020 3:50 PM EST) TTG IGA ANTIBODY <1.2 <4.0 (Negative) U/mL [facility] Blood 04/01/2020 3:50 PM EST 04/01/2020 3:55 PM EST Roselia Blanco PA-C LAB BLOOD BKR ORDERABLES Final Result Performing Organization Address [facility] de Phone Number [facility] [address] [place] [address] documented in this encounter Visit Diagnoses Diagnosis Pancreatic cyst- Primary Cyst and pseudocyst of pancreas Constipation, unspecified constipation type Abdominal pain, left lower quadrant documented in this encounter Care Teams Perch Mender Relationship Specialty Start Date End Date Arsh Torres MD [address] [place] [address] [address] [place] [phone] PCP - General 03/03/17 documented as of this encounter Additional Source Comments The information contained in this document represents components of the legal health record. It is not the complete legal health record.[facility]
--- OUTSIDE RECORDS SUMMARY | 2025-04-17 08:26 | XMS_ITS | Encounter Summary ---
Author Organization [facility] Address [address] [place] [address] Phone Care Team Providers Care Farmer General Name Role Phone Arsh Torres MD Primary Care Provide r Encounter Details Date Type Department Care Team (Late st Contact Info) Description 02/23/2019 Ancillary Orders [facility], X-Ray - [address] [place] [address] Arsh Torres MD [address] [place] [address] [place] [phone] [email or web address] Left knee pain, unspecified [...] Description 04/30/2025 8:15 AM EST Office Visit [facility] Gastroenterology Clinic 10 [place] [address] Unknown, Unknown, Timothy Romeo PA-C [address] [place] [address] [email or web address] documented as of this encounter Results * [...] LEFT knee. No joint effusions. POS - [id number] Edited by: Sanam Velazquez on 02/23/2019 3:52 [...] LEFT knee. No joint effusions. POS - [id number] Edited by: Sanam Velazquez on 02/23/2019 3:52 PM Arsh Torres MD IMG XR LOWER EXTREMIT Y Final Result documented in this encounter Visit Diagnoses Diagnosis Left knee pain, unspecified chronicity Left knee pain, unspecified chronicity documented in this encounter Care Teams Farmer General Relationship Specialty Start Date End Date Arsh Torres MD [address] [place] [address] [address] [place] [address] PCP - General 03/03/17 documented as of this encounter Additional Source Comments The information contained in this document represents components of the legal health record. It is not the complete legal health record.[facility]
--- OUTSIDE RECORDS SUMMARY | 2025-04-17 08:26 | XMS_ITS | Encounter Summary ---
Author Organization [facility] Address [address] [place] [address] Phone Care Team Providers Care Fabric Finisher Name Role Phone Arsh Torres MD Primary Care Provide r Encounter Details Date Type Department Care Team (Late st Contact Info) Description 09/04/2018 Procedure Pass [facility], [address] [place] [address] Social History Tobacco Use Types Packs/Day Years [...] Description 04/30/2025 8:15 AM EST Office Visit [facility] Gastroenterology Clinic 10 [place] [address] Unknown, Unknown, Timothy Romeo PA-C [address] [address] documented as of this encounter Visit Diagnoses Not on filedocumented in this encounter Care Teams Fabric Finisher Relationship Specialty Start Date End Date Arsh Torres MD [address] [place] [address] [address] BETTY Deutsch [phone] [email or web address] PCP - General 03/03/17 documented as of this encounter Additional Source Comments The information contained in this document represents components of the legal health record. It is not the complete legal health record.[facility]
--- OUTSIDE RECORDS SUMMARY | 2025-04-17 08:26 | XMS_ITS | Encounter Summary ---
Author Organization [employer] Address [address] [facility] 7t [place] [address] Care Team Providers Care Fuel Efficient Aircraft Designer Name Role Phone Arsh Gamez MD Primary Care Provide r Reason for Visit * Reason Onset Date Comments rescheduled appt mistakenly cancelled 05/17/2024 Encounter Details Date Type Department Care Team (Late st Contact Info) Description 05/17/2024 Telephone [facility] ADULT DENTAL 230 [place], [place] [phone] Nickie, Shelya 230 [place] [address] rescheduled appt mistakenly cancelled Social History Tobacco [...] Description 04/29/2025 3:00 PM EST Office Visit [facility] ADULT DENTAL [address] [place] [address] 05/22/2025 2:45 PM EST Office Visit [facility] ADULT DENTAL [address] [place] [address] Eleno Sequeira DDS 230 [place] [address] 06/13/2025 8:00 AM EST Office Visit [facility] ADULT DENTAL 230 [place] [address] Mari Bloom documented as of this encounter Visit Diagnoses Not on filedocumented in this encounter Additional Health Concerns Assessment Noted Time PHQ-9 Depression Total Score: 0 09/29/19 24 9:32 AM EDT documented as of this encounter Care Teams Fuel Efficient Aircraft Designer Relationship Specialty Start Date End Date Arsh Gamez MD 230 [place] [address] PCP - General Internal Medicine 12/18/13 documented as of this encounter
--- OUTSIDE RECORDS SUMMARY | 2025-04-17 08:26 | XMS_ITS | Encounter Summary ---
Author Organization [facility] Address [address] [place] [address] Phone Care Team Providers Care Liquid Fertilizer Servicer Name Role Phone Arsh Torres MD Primary Care Provide r Encounter Details Date Type Department Care Team (Late Contact Info) Description 09/18/2018 Ancillary Orders [facility],Outside Imaging 30 [place] [address] System, Provider Not In, PhD [address] [address] Social History Tobacco Use Types Packs/Day Years [...] AM EST Office Visit [facility] Gastroenterology Clinic 10 [place] [address] Unknown, Unknown, Timothy Romeo PA-C [address] [address] [email or web address] documented as of this encounter Results * US Abdomen Outside (No Interpretation) (06/02/2016 12:00 AM EST) Narrative SYSTEMGENERATED, DOCUMENTATION - 09/18/2018 1:01 PM EDT This study is for PACS storage only and not for interpretation. us Provider Not In System PhD IMG OUTSIDE IMAGING W /OUT INTERPRETATION Final Result documented in this encounter Visit Diagnoses Not on filedocumented in this encounter Care Teams Liquid Fertilizer Servicer Relationship Specialty Start Date End Date Arsh Torres MD [address] [place] [address] [address] [place] [phone] [email or web address] PCP - General 03/03/17 documented as of this encounter Additional Source Comments The information contained in this document represents components of the legal health record. It is not the complete legal health record.[facility]
--- OUTSIDE RECORDS SUMMARY | 2025-04-17 08:26 | XMS_ITS | Encounter Summary ---
Author Organization [employer] Address 75 [facility] 7t [place] [address] Care Team Providers Care Rn Disease Management Name Role Phone Arsh Gamez MD Primary Care Provide r Reason for Visit * Reason Comments Med Refill Encounter Details Date Type Department Care Team ([facility] st Contact Info) Description 05/11/2024 Refill [facility] MEDICINE 230 [place], [place] [phone] Arsh Gamez MD 230 [place], [place] [phone] Need for prophylactic antibiotic Social History Tobacco [...] Description 04/29/2025 3:00 PM EST Office Visit [facility] ADULT DENTAL 505 [place] [address] 05/22/2025 2:45 PM EST Office Visit [facility] ADULT DENTAL 505 [place] [address] Eleno Sequeira DDS 230 [place] [address] 06/13/2025 8:00 AM EST Office Visit [facility] ADULT DENTAL 230 [place] [address] Mari Bloom documented as of this encounter Visit Diagnoses Diagnosis Need for prophylactic antibiotic Encounter for long-term (current) use of antibiotics documented in this encounter Additional Health Concerns Assessment Noted Time PHQ-9 Depression Total Score: 0 09/29/19 24 9:32 AM EDT documented as of this encounter Care Teams Rn Disease Management Relationship Specialty Start Date End Date Arsh Gamez MD 230 [place] [address] PCP - General Internal Medicine 12/18/13 documented as of this encounter
--- OUTSIDE RECORDS SUMMARY | 2025-04-17 08:26 | XMS_ITS | Encounter Summary ---
Author Organization [employer] Address [address] [facility] [address] 7t [place] [address] Care Team Providers Care Naphtha Washing System Operator Name Role Phone Arsh Gamez MD Primary Care Provide r Reason for Visit * Reason Comments Med Refill Encounter Details Date Type Department Care Team ([facility] st Contact Info) Description 07/07/2024 Refill [facility] 230 [place], [place] [phone] Arsh Gamez MD 230 [place], [place] [phone] Benign prostatic hyperplasia with urinary frequency Social [...] Description 04/29/2025 3:00 PM EST Office Visit [facility] ADULT DENTAL 505 [place] [address] 05/22/2025 2:45 PM EST Office Visit [facility] ADULT DENTAL 505 [place] [address] Eleno Sequeira DDS 230 [place] [address] 06/13/2025 8:00 AM EST Office Visit [facility] ADULT DENTAL 230 [place] [address] Mari Bloom documented as of this encounter Visit Diagnoses Diagnosis Benign prostatic hyperplasia with urinary frequency documented in this encounter Additional Health Concerns Assessment Noted Time PHQ-9 Depression Total Score: 0 09/29/19 24 9:32 AM EDT documented as of this encounter Care Teams Naphtha Washing System Operator Relationship Specialty Start Date End Date Arsh Gamez MD 230 [place] [address] PCP - General Internal Medicine 12/18/13 documented as of this encounter
--- OUTSIDE RECORDS SUMMARY | 2025-04-17 08:26 | XMS_ITS | Encounter Summary ---
Author Organization [facility] Address [address] [place] [address] Phone Care Team Providers Care Residential Support Specialist Name Role Phone Arsh Torres MD Primary Care Provide r Reason for Referral * MRI/CAT Scan - Closed Specialty Diagnoses / Procedures Referred By Contac t Referred To Contact Procedures CT Abdomen/Pelvis Outside (No Interpretation) System, Provider Not In, PhD Partners [address] [address] Referral ID Status Reason Start Date Expiration Date Visits Re quested Visits Authorized [id number] Closed 09/18/2018 09/18/2019 1 1 Encounter Details Date Type Department Care Team (Late st Contact Info) Description 09/18/2018 Ancillary Orders [facility],Outside Imaging 30 [place] [address] System, Provider Not In, PhD [facility] [address] [address] Social History Tobacco Use Types Packs/Day Years [...] Description 04/30/2025 8:15 AM EST Office Visit [facility] Gastroenterology Clinic 10 [place] [address] Unknown, Unknown, Timothy Romeo PA-C 10 [facility] 2 [place] [address] [email or web address] documented as of this encounter Results * CT Abdomen/Pelvis Outside (No Interpretation) (05/26/2016 12:00 AM EST) Narrative SYSTEMGENERATED, DOCUMENTATION - 09/18/2018 1:02 PM EDT This study is for PACS storage only and not for interpretation. us Provider Not In System PhD IMG OUTSIDE IMAGING W /OUT INTERPRETATION Final Result documented in this encounter Visit Diagnoses Not on filedocumented in this encounter Care Teams Residential Support Specialist Relationship Specialty Start Date End Date Arsh Torres MD [address] [place] [address] [address] [place] [phone] [email or web address] PCP - General 03/03/17 documented as of this encounter Additional Source Comments The information contained in this document represents components of the legal health record. It is not the complete legal health record.[facility]
--- OUTSIDE RECORDS SUMMARY | 2025-04-17 08:26 | XMS_ITS | Encounter Summary ---
Author Organization [facility] Address [address] [place] [address] Phone Care Team Providers Care Senior Structural Engineer Name Role Phone Arsh Torres MD Primary Care Provide r Encounter Details Date Type Department Care Team (Latest Contact Info) Description 06/05/2020 Transcribe Orders Virtual Department 30 [place] [address] Kalpesh Vitale MD [address] [address] Pre-operative laboratory examination (Primary Dx) Social History [...] Description 04/30/2025 8:15 AM EST Office Visit [facility] Gastroenterology Clinic 10 [place] [address] Unknown, Unknown, Timothy Romeo PA-C [address] [place] [address] documented as of this encounter Results * COVID-19 PCR Order (06/08/2020 8:01 AM EST) COVID-19 Comment [id number] [facility] COVID Testing Status Sent to [facility] 06/08/2020 8:01 AM EST 06/08/2020 11:43 AM EST us Kalpesh Vitale MD LAB GENERAL ORDERABLES Final Result [facility] 30 [place] [address] documented in this encounter Visit Diagnoses Diagnosis Pre-operative laboratory examination- Primary Pre-procedural laboratory examination documented in this encounter Care Teams Senior Structural Engineer Relationship Specialty Start Date End Date Arsh Torres MD [address] [place] [address] [address] [place] [phone] PCP - General 03/03/17 documented as of this encounter Additional Source Comments The information contained in this document represents components of the legal health record. It is not the complete legal health record.[facility]
--- OUTSIDE RECORDS SUMMARY | 2025-04-17 08:26 | XMS_ITS | Encounter Summary ---
Author Organization [email or web address] Address 75 [facility] 7t h Floor [address] Care Team Providers Care Vice Principal Name Role Phone Arsh Gamez MD Primary Care Provide r Reason for Visit * Reason Comments Med Refill Encounter Details Date Type Department Care Team ([facility] st Contact Info) Description 04/06/2024 Refill [facility] ADULT DENTAL 230 [place], [place] [phone] Power Davis, OLIVA 230 [place] [address] Social History Tobacco Use Types Packs/Day Years [...] 04/29/2025 3:00 PM EST Office Visit [facility] ADULT DENTAL 505 [place] [address] 05/22/2025 2:45 PM EST Office Visit [facility] ADULT DENTAL 505 [place] [address] Eleno Sequeira DDS 230 [place] [address] 06/13/2025 8:00 AM EST Office Visit [facility] ADULT DENTAL 230 [place] [address] Mari lBoom documented as of this encounter Visit Diagnoses Not on filedocumented in this encounter Additional Health Concerns Assessment Noted Time PHQ-9 Depression Total Score: 0 09/29/19 24 9:32 AM EDT documented as of this encounter Care Teams Vice Principal Relationship Specialty Start Date End Date Arsh Gamez MD 230 [place] [address] PCP - General Internal Medicine 12/18/13 documented as of this encounter
--- OUTSIDE RECORDS SUMMARY | 2025-04-17 08:26 | XMS_ITS | Encounter Summary ---
Author Organization [employer] Address [address] [facility] 7t [place] [address] Care Team Providers Care Full Time Babysitter Name Role Phone Arsh Gamez MD Primary Care Provide r Reason for Visit * Reason Onset Date Comments Dr. Marin change treatment plan/active request 03/26/2025 Encounter Details Date Type Department Care Team (Late st Contact Info) Description 03/26/2025 Telephone [facility] ADULT DENTAL [address] [place] [address] Sania Chopra, DDS [address] [place] [address] Dr. Marin change treatment plan/active request Social History Tobacco Use Types Packs/Day Years [...] * Telephone Encounter - Clair Blancas - 03/26/2025 2:05 PM EST Message for Dr. Marin Patient calling in to report he does not want a RCT. He wants wisdom tooth extracted. Patient states that the tooth is pushing other molar up and out uprooting it and he would like extraction verses root canal DR documented in this encounter Plan of Treatment Upcoming Encounters Date Type Department Care Team (Late st Contact Info) Description 04/29/2025 3:00 PM EST Office Visit [facility] [address] [place] [address] 05/22/2025 2:45 PM EST Office Visit [facility] [address] [place] [address] Eleno Sequeira DDS 230 [place] [address] 06/13/2025 8:00 AM EST Office Visit [facility] ADULT DENTAL [address] [place] [address] Mari Bloom documented as of this encounter Visit Diagnoses Not on filedocumented in this encounter Additional Health Concerns Assessment Noted Time PHQ-9 Depression Total Score: 0 12/19/19 25 8:55 AM EDT documented as of this encounter Care Teams Full Time Babysitter Relationship Specialty Start Date End Date Arsh Gamez MD [address] [place] [address] PCP - General Internal Medicine 12/18/13 documented as of this encounter
--- OUTSIDE RECORDS SUMMARY | 2025-04-17 08:26 | XMS_ITS | Encounter Summary ---
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 Procedures MRI Cholangiopancreatography (MRCP) Ky De La Fuente NP Phone: tel: fax: mailto:[email or web address] [employer] Referral ID Status Reason Start Date Expiration Date Visits Re quested Visits Authorized [id number] Closed 09/04/2018 09/04/2019 1 1 Encounter Details Date Type Department Care Team (Latest Contact Info) Description 09/04/2018 Transcribe Orders Virtual Department [address] [place] [address] Ky De La Fuente NP [address] [place] [address] [email or web address] .Playful Data Alcohol induced acute pancreatitis without necrosis or [...] Description 04/30/2025 8:15 AM EST Office Visit [facility] 10 [place] [address] Unknown, Unknown, MD Mclaughlin, JORGE Aguirre [address] [address] [email or web address] Data documented as of this encounter Results * [...] No hepatic, gallbladder or biliary pathology. POS [id number] Narrative 09/14/2018 10:18 AM EDT TECHNIQUE: 1.5 [...] to typed report of CT 08/05/2018 from [facility] as well as [facility] ultrasound from 04/25/[address] 07/23/2011. FINDINGS: [...] ascites, adenopathy or pleural effusion. Procedure Note Enzo Lee MD - 09/14/2018 TECHNIQUE: 1.5 Raiza [...] to typed report of CT 08/05/2018 from [facility] aswell as [facility] ultrasound from 04/25/[address] 07/23/2011. FINDINGS: [...] No hepatic, gallbladder or biliary pathology. 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 It is not the complete legal health record.[facility]
--- OUTSIDE RECORDS SUMMARY | 2025-04-17 08:26 | XMS_ITS | Clinical Summary ---
Author Organization [facility] Address [address] [place] [address] Care Team Providers Care Mail Room Name Role Phone Arsh Sharif MD Primary [...] Medicaid [place] Care Teams Mail Room Relationship Specialty Start Date End Date Arsh Sharif MD [address] [place] [phone] PCP - General Internal Medicine 08/24/21
--- OUTSIDE RECORDS SUMMARY | 2025-04-17 08:26 | XMS_ITS | Encounter Summary ---
Author Organization [facility] Address [address] [place] [address] Phone Care Team Providers Care Accountant Auditor Name Role Phone Arsh Torres MD Primary Care Provide r Encounter Details Date Type Department Care Team (Late Contact Info) Description 02/23/2019 Ancillary Orders [facility], X-Ray - [address] [place] [address] Arsh Torres MD [address] [place] [address] [place] [phone] [email or web address] Left knee pain, unspecified [...] Description 04/30/2025 8:15 AM EST Office Visit [facility] Gastroenterology Clinic 10 [place] [address] Unknown, Unknown, Timothy Romeo PA-C [address] [address] [email or web address] documented as of this encounter Visit Diagnoses Diagnosis Left knee pain, unspecified chronicity Right knee pain, unspecified chronicity documented in this encounter Care Teams Accountant Auditor Relationship Specialty Start Date End Date Arsh Torres MD [address] [place] [address] [address] [place] [phone] [email or web address] PCP - General 03/03/17 documented as of this encounter Additional Source Comments The information contained in this document represents components of the legal health record. It is not the complete legal health record.[facility]
--- OUTSIDE RECORDS SUMMARY | 2025-04-17 08:26 | XMS_ITS | Encounter Summary ---
Author Organization [facility] Address [address] [place] [address] Phone Care Team Providers Care Lithographic Press Feeder Name Role Phone Arsh Torres MD Primary Care Provide r Encounter Details Date Type Department Care Team (Latest Contact Info) Description 04/28/2018 Transcribe Orders [address] [place] [address] Reymundo Salvador MD [address] [place] [address], [address] [address] [email or web address] Benign prostatic hyperplasia with lower urinary tract [...] 04/30/2025 8:15 AM EST Office Visit [facility] Gastroenterology Clinic 10 [place] [address] Unknown, UnknownMD Lissette Mary-Laura, PA-C [address] [place] [address] [email or web address] documented as of this encounter Results * PSA (screening) (04/28/2018 12:40 PM EST) PSA 1.27 0 - 4.00 ng/mL [facility] Blood 04/28/2018 12:4 0 PM EST 04/28/2018 12:42 PM EST us Reymundo Salvador MD LAB BLOOD BKR ORDERABLES Final Result [facility] [address] [place] [address] documented in this encounter Visit Diagnoses Diagnosis Benign prostatic hyperplasia with lower urinary tract symptoms, symptom details unspecified- Primary documented in this encounter Care Teams Lithographic Press Feeder Relationship Specialty Start Date End Date Arsh Torres MD [address] [place] [address] [address] [place] [phone] [email or web address] PCP - General 03/03/17 documented as of this encounter Additional Source Comments The information contained in this document represents components of the legal health record. It is not the complete legal health record.[facility]
--- OUTSIDE RECORDS SUMMARY | 2025-04-17 08:27 | XMS_ITS | Encounter Summary ---
Author Organization [employer] Address [address] [facility] 7t [place] [address] Care Team Providers Care Diamond Sander Name Role Phone Arsh Gamez MD Primary Care Provide r Reason for Visit * Reason Comments Med Refill Encounter Details Date Type Department Care Team ([facility] st Contact Info) Description 06/20/2023 Refill [facility] MEDICINE [address] [place], [place] [phone] Arsh Gamez MD [address] [place], [place] [phone] Pain Social History Tobacco Use Types Packs/Day [...] Description 04/29/2025 3:00 PM EST Office Visit [facility] ADULT DENTAL [address] [place] [address] 05/22/2025 2:45 PM EST Office Visit [facility] ADULT DENTAL [address] [place] [address] Eleno Sequeira DDS [address] [place] [address] 06/13/2025 8:00 AM EST Office Visit [facility] ADULT DENTAL [address] [place] [address] Mari Bloom documented as of this encounter Visit Diagnoses Diagnosis Pain Generalized pain documented in this encounter Care Teams Diamond Sander Relationship Specialty Start Date End Date Arsh Gamez MD [address] [place] [address] PCP - General Internal Medicine 12/18/13 documented as of this encounter
--- OUTSIDE RECORDS SUMMARY | 2025-04-17 08:27 | XMS_ITS | Encounter Summary ---
Author Organization [facility] Address [address] [place] [address] Phone Care Team Providers Care Glazier Helper Name Role Phone Arsh Torres MD Primary Care Provide r Encounter Details Date Type Department Care Team (Late st Contact Info) Description 02/16/2022 Procedure Pass OR Admitting Dept - Virtual Department 30 [place] [address] Social History Tobacco Use Types Packs/Day Years [...] Description 04/30/2025 8:15 AM EST Office Visit [facility] Gastroenterology Clinic 10 [place] [address] Unknown, Unknown, Timothy Romeo PA-C [address] [address] documented as of this encounter Visit Diagnoses Not on filedocumented in this encounter Care Teams Glazier Helper Relationship Specialty Start Date End Date Arsh Torres MD [address] [place] [address] [address] BETTY Deutsch [phone] [email or web address] PCP - General 03/03/17 documented as of this encounter Additional Source Comments The information contained in this document represents components of the legal health record. It is not the complete legal health record.[facility]
--- OUTSIDE RECORDS SUMMARY | 2025-04-17 08:27 | XMS_ITS | Encounter Summary ---
Author Organization [facility] Address [address] [place] [address] Phone Care Team Providers Care Forest Law And Policy Professor Name Role Phone Arsh Torres MD Primary Care Provide r Encounter Details Date Type Department Care Team (Late st Contact Info) Description 09/13/2023 Procedure Pass OR Admitting Dept - Virtual Department 30 [place] [address] Social History Tobacco Use Types Packs/Day Years [...] Visit [facility] Gastroenterology Clinic 10 [place] [address] Unknown, Unknown, Timothy Romeo PA-C [address] [address] [email or web address] documented as of this encounter Visit Diagnoses Not on filedocumented in this encounter Care Teams Forest Law And Policy Professor Relationship Specialty Start Date End Date Arsh Torres MD [address] [place] [address] [address] [place] [phone] PCP - General 03/03/17 documented as of this encounter Additional Source Comments The information contained in this document represents components of the legal health record. It is not the complete legal health record.[facility]
--- OUTSIDE RECORDS SUMMARY | 2025-04-17 08:27 | XMS_ITS | Encounter Summary ---
Author Organization [facility] Address [address] [place] [address] Phone Care Team Providers Care Screen And Cyclone Repairer Name Role Phone Arsh Torres MD Primary Care Provide r Encounter Details Date Type Department Care Team (Late Contact Info) Description 06/14/2022 Transcribe Orders Virtual Department [address] [place] [address] Sarah Mojica PA-C [address] [place] [address] [email or web address] Cyst of kidney, acquired (Primary Dx); Personal [...] Department Care Team (Late Contact Info) Description 04/30/2025 8:15 AM EST Office Visit [facility] Gastroenterology Clinic 10 [place] [address] Unknown, Unknown, Timothy Romeo PA-C [address] [place] [address] [email or web address] documented as of this encounter Results * [...] mass, calculi or hydronephrosis identified affectingeither kidney. us Sarah Mojica PA-C IMG US RENAL Final R esult documented in this encounter Visit Diagnoses Diagnosis Cyst of kidney, acquired- Primary Acquired cyst of kidney Personal history of urinary calculi Cyst of kidney, acquired Acquired cyst of kidney Personal history of urinary calculi documented in this encounter Care Teams Screen And Cyclone Repairer Relationship Specialty Start Date End Date Arsh Torres MD [address] [place] [address] [address] [place] [phone] [email or web address] PCP - General 03/03/17 documented as of this encounter Additional Source Comments The information contained in this document represents components of the legal health record. It is not the complete legal health record.[facility]
--- OUTSIDE RECORDS SUMMARY | 2025-04-17 08:27 | XMS_ITS | Encounter Summary ---
Author Organization [facility] Address [address] [place] [address] Phone Care Team Providers Care Interlacer Name Role Phone Arsh Torres MD Primary Care Provide r Encounter Details Date Type Department Care Team (Late Contact Info) Description 03/01/2019 Ancillary Orders [facility], X-Ray - [address] [address] Arsh Torres MD [address] [place] [address] [place] [phone] [email or web address] Social History Tobacco Use Types Packs/Day [...] Office Visit [facility] Gastroenterology Clinic 10 [place] [address] Unknown, Unknown, Timothy Romeo PA-C [address] [place] [address] [email or web address] documented as of this encounter Visit Diagnoses Not on filedocumented in this encounter Care Teams Interlacer Relationship Specialty Start Date End Date Arsh Torres MD [address] [place] [address] [address] [place] [phone] [email or web address] PCP - General 03/03/17 documented as of this encounter Additional Source Comments The information contained in this document represents components of the legal health record. It is not the complete legal health record.[facility]
--- OUTSIDE RECORDS SUMMARY | 2025-04-17 08:27 | XMS_ITS | Encounter Summary ---
Author Organization [facility] Address [address] [place] [address] Phone Care Team Providers Care Fashion Supervisor Name Role Phone Arsh Torres MD Primary Care Provide r Encounter Details Date Type Department Care Team (Latest Contact Info) Description 04/18/2020 Transcribe Orders Virtual Department 30 [place] [address] Roselia Blanco PA-C [address] [place] [address] [email or web address] Pancreatic cyst (Primary Dx); LLQ abdominal pain; [...] Description 04/30/2025 8:15 AM EST Office Visit [facility] Gastroenterology Clinic 10 [place] [address] Unknown, Unknown, Timothy Romeo PA-C [address] [place] [address] [email or web address] documented as of this encounter Visit Diagnoses Diagnosis Pancreatic cyst- Primary Cyst and pseudocyst of pancreas LLQ abdominal pain Abdominal pain, left lower quadrant Constipation, unspecified constipation type documented in this encounter Care Teams Fashion Supervisor Relationship Specialty Start Date End Date Arsh Torres MD [address] [place] [address] [address] [place] [phone] [email or web address] PCP - General 03/03/17 documented as of this encounter Additional Source Comments The information contained in this document represents components of the legal health record. It is not the complete legal health record.[facility]
--- OUTSIDE RECORDS SUMMARY | 2025-04-17 08:27 | XMS_ITS | Encounter Summary ---
Author Organization [employer] Address [address] [facility] 7t [place] [address] Care Team Providers Care Dough Mixing Machine Operator Name Role Phone Arsh Gamez MD Primary Care Provide r Reason for Visit * Reason Onset Date Comments Referral 01/10/2025 Encounter Details Date Type Department Care Team ([facility] st Contact Info) Description 01/10/2025 Telephone [facility] MEDICINE [address] [place], [place] [phone] Arsh Gamez MD 230 [place], [place] [phone] Referral Social History Tobacco Use Types Packs/Day [...] from pt requesting a referral for gastroenterology. [facility] Phone number [phone] documented in this encounter Plan of Treatment Upcoming Encounters Date Type Department Care Team (Late st Contact Info) Description 04/29/2025 3:00 PM EST Office Visit [facility] ADULT DENTAL 505 [place] [address] 05/22/2025 2:45 PM EST Office Visit [facility] ADULT DENTAL [address] [place] [address] Eleno Sequeira DDS 230 [place] [address] 06/13/2025 8:00 AM EST Office Visit [facility] ADULT DENTAL [address] [place] [address] Mari Bloom documented as of this encounter Visit Diagnoses Not on filedocumented in this encounter Additional Health Concerns Assessment Noted Time PHQ-9 Depression Total Score: 0 12/19/19 25 8:55 AM EDT documented as of this encounter Care Teams Dough Mixing Machine Operator Relationship Specialty Start Date End Date Arsh Gamez MD 230 [place] [address] PCP - General Internal Medicine 12/18/13 documented as of this encounter
--- OUTSIDE RECORDS SUMMARY | 2025-04-17 08:27 | XMS_ITS | Encounter Summary ---
Author Organization [employer] Address [address] [facility] [address] 7t [place] [address] Care Team Providers Care Trolley Collector Name Role Phone Arsh Gamez MD Primary Care Provide r Reason for Visit * Reason Comments Med Refill Encounter Details Date Type Department Care Team ([facility] st Contact Info) Description 12/28/2023 Refill [facility] 230 [place], [place] [phone] Felicita Beasley, ANP 230 [place] [address] Benign prostatic hyperplasia with urinary frequency Social [...] Description 04/29/2025 3:00 PM EST Office Visit [facility] ADULT DENTAL 505 [place] [address] 05/22/2025 2:45 PM EST Office Visit [facility] ADULT DENTAL [address] [place] [address] Eleno Sequeira DDS [address] [place] [address] 06/13/2025 8:00 AM EST Office Visit [facility] 230 [place] [address] Mari Bloom documented as of this encounter Visit Diagnoses Diagnosis Benign prostatic hyperplasia with urinary frequency documented in this encounter Additional Health Concerns Assessment Noted Time PHQ-9 Depression Total Score: 0 09/29/19 24 9:32 AM EDT documented as of this encounter Care Teams Trolley Collector Relationship Specialty Start Date End Date Arsh Gamez MD [address] [place] [address] PCP - General Internal Medicine 12/18/13 documented as of this encounter
--- OUTSIDE RECORDS SUMMARY | 2025-04-17 08:27 | XMS_ITS | Encounter Summary ---
Author Organization [employer] Address [address] [facility] 7t [place] [address] Care Team Providers Care Broadcast Maintenance Technician Name Role Phone Arsh Gamez MD Primary Care Provide r Reason for Visit * Reason Onset Date Comments Appointment Request 12/30/2023 Encounter Details Date Type Department Care Team ([facility] st Contact Info) Description 12/30/2023 Telephone [facility] MEDICINE [address] [place], [place] [phone] Arsh Gamez MD 230 [place], [place] [phone] Appointment Request Social History Tobacco Use Types [...] [facility] ADULT DENTAL [address] [place] [address] 05/22/2025 2:45 PM EST Office Visit [facility] ADULT DENTAL [address] [place] [address] Eleno Sequeira DDS [address] [place] [address] 06/13/2025 8:00 AM EST Office Visit [facility] ADULT DENTAL [address] [place] [address] Mari Bloom documented as of this encounter Visit Diagnoses Not on filedocumented in this encounter Additional Health Concerns Assessment Noted Time PHQ-9 Depression Total Score: 0 09/29/19 24 9:32 AM EDT documented as of this encounter Care Teams Broadcast Maintenance Technician Relationship Specialty Start Date End Date Arsh Gamez MD 230 [place] [address] PCP - General Internal Medicine 12/18/13 documented as of this encounter
--- OUTSIDE RECORDS SUMMARY | 2025-04-17 08:27 | XMS_ITS | Encounter Summary ---
Author Organization [employer] [facility] Address [address] [facility] 7t [place] [address] Care Team Providers Care Electrotype Finisher Name Role Phone Arsh Gamez MD Primary Care Provide r Encounter Details Date Type Department Care Team (Late st Contact Info) Description 07/16/2022 Abstract [facility] ADULT DENTAL [address] [place], [place] [phone] Power Davis, OLIVA [address] [place] [address] Social History Tobacco Use Types Packs/Day Years [...] Description 04/29/2025 3:00 PM EST Office Visit [facility] ADULT DENTAL [address] [place] [address] 05/22/2025 2:45 PM EST Office Visit [facility] ADULT DENTAL [address] [place] [address] Eleno Sequeira DDS [address] [place] [address] 06/13/2025 8:00 AM EST Office Visit [facility] ADULT DENT[facility] [address] [place] [address] Mari Bloom documented as of this encounter Visit Diagnoses Not on filedocumented in this encounter Care Teams Electrotype Finisher Relationship Specialty Start Date End Date Arsh Gamez MD [address] [place] [address] PCP - General Internal Medicine 12/18/13 documented as of this encounter
--- OUTSIDE RECORDS SUMMARY | 2025-04-17 08:27 | XMS_ITS | Encounter Summary ---
Author Organization [employer] [facility] Address [address] [facility] 7t [place] [address] Care Team Providers Care Manager It Security Name Role Phone Arsh Gamez MD Primary Care Provide r Encounter Details Date Type Department Care Team (Latest Contact Info) Description 05/18/2021 Abstract [facility] CONVERSIONS Dental, Provider, DDS Social History [...] Description 04/29/2025 3:00 PM EST Office Visit [facility] ADULT DENTAL 505 [place] [address] 05/22/2025 2:45 PM EST Office Visit [facility] ADULT DENTAL 505 [place] [address] Eleno Sequeira DDS [address] [place] [address] 06/13/2025 8:00 AM EST Office Visit [facility] ADULT DENTAL 230 [place] [address] Mari Bloom documented as of this encounter Visit Diagnoses Not on filedocumented in this encounter Care Teams Manager It Security Relationship Specialty Start Date End Date Arsh Gamez MD 230 [place] [address] PCP - General Internal Medicine 12/18/13 documented as of this encounter
--- OUTSIDE RECORDS SUMMARY | 2025-04-17 08:27 | XMS_ITS | Encounter Summary ---
Author Organization [facility] Address [address] [place] [phone] Phone Care Team Providers Care Egg Gatherer Name Role Phone Arsh Torres MD Primary Care Provide r Encounter Details Date Type Department Care Team (Late Contact Info) Description 09/28/2022 Procedure Pass OR Admitting Dept - Virtual Department [address] [place] [address] Social History Tobacco Use Types Packs/Day Years [...] Description 04/30/2025 8:15 AM EST Office Visit [facility] 10 [place] [address] Unknown, Unknown, Timothy Romeo PA-C [address] [address] documented as of this encounter Visit Diagnoses Not on filedocumented in this encounter Care Teams Egg Gatherer Relationship Specialty Start Date End Date Arsh Torres MD [address] [place] [address] [address] [place] [phone] [email or web address] PCP - General 03/03/17 documented as of this encounter Additional Source Comments The information contained in this document represents components of the legal health record. It is not the complete legal health record.[facility]
--- OUTSIDE RECORDS SUMMARY | 2025-04-17 08:27 | XMS_ITS | Encounter Summary ---
Author Organization [employer] Address 75 [facility] 7t [place] [address] Care Team Providers Care Shirt Operator Name Role Phone Arsh Gamez MD Primary Care Provide r Reason for Visit * Reason Onset Date Comments Med Change Request Prior Authorization 03/10/2023 SUMAtriptan (Imitrex) 50 MG tablet Encounter Details Date Type Department Care Team ([facility] st Contact Info) Description 03/10/2023 Refill [facility] [address] [place], [place] [phone] Arsh Gamez MD 230 [place], [place] [phone] Social History Tobacco Use Types Packs/Day Years [...] Description 04/29/2025 3:00 PM EST Office Visit [facility] 505 [place] [address] 05/22/2025 2:45 PM EST Office Visit [facility] 505 [place] [address] Eleno Sequeira DDS 230 [place] [address] 06/13/2025 8:00 AM EST Office Visit [facility] [address] [place] [address] Mari Bloom documented as of this encounter Visit Diagnoses Not on filedocumented in this encounter Care Teams Shirt Operator Relationship Specialty Start Date End Date Arsh Gamez MD 230 [place] [address] PCP - General Internal Medicine 12/18/13 documented as of this encounter
--- OUTSIDE RECORDS SUMMARY | 2025-04-17 08:27 | XMS_ITS | Encounter Summary ---
Author Organization [facility] Address [address] [place] [phone] Phone Care Team Providers Care Sanitary Aide Name Role Phone Arsh Torres MD Primary Care Provide r Encounter Details Date Type Department Care Team (Late st Contact Info) Description 04/12/2022 Procedure Pass [facility], [address] [place] [address] Social History Tobacco Use Types Packs/Day Years [...] Description 04/30/2025 8:15 AM EST Office Visit [facility] 10 [place] [address] Unknown, Unknown, Timothy Romeo PA-C [address] [address] documented as of this encounter Visit Diagnoses Not on filedocumented in this encounter Care Teams Sanitary Aide Relationship Specialty Start Date End Date Arsh Torres MD [address] [place] [address] [address] BETTY Deutsch [phone] [email or web address] PCP - General 03/03/17 documented as of this encounter Additional Source Comments The information contained in this document represents components of the legal health record. It is not the complete legal health record.[facility]
--- OUTSIDE RECORDS SUMMARY | 2025-04-17 08:27 | XMS_ITS | Encounter Summary ---
Author Organization [employer] Address 75 [facility] 7t [place] [address] Care Team Providers Care Shovel Log Loader Operator Name Role Phone Arsh Gamez MD Primary Care Provide r Reason for Visit * Reason Comments Med Refill Encounter Details Date Type Department Care Team ([facility] st Contact Info) Description 03/25/2024 Refill [facility] [address] [place], [place] [phone] Rolando Denton, CAT [address] [place] [address] Social History Tobacco Use Types Packs/Day Years [...] 3:00 PM EST Office Visit [facility] [address] [place] [address] 05/22/2025 2:45 PM EST Office Visit [facility] [address] [place] [address] Eleno Sequeira DDS 230 [place] [address] 06/13/2025 8:00 AM EST Office Visit [facility] [address] [place] [address] Mari Bloom documented as of this encounter Visit Diagnoses Not on filedocumented in this encounter Additional Health Concerns Assessment Noted Time PHQ-9 Depression Total Score: 0 09/29/19 24 9:32 AM EDT documented as of this encounter Care Teams Shovel Log Loader Operator Relationship Specialty Start Date End Date Arsh Gamez MD 230 [place] [address] PCP - General Internal Medicine 12/18/13 documented as of this encounter
--- OUTSIDE RECORDS SUMMARY | 2025-04-17 08:27 | XMS_ITS | Encounter Summary ---
Author Organization [facility] Address [address] [place] [address] Phone Care Team Providers Care Laboratory Equipment Cleaner Name Role Phone Arsh Torres MD Primary Care Provide r Encounter Details Date Type Department Care Team (Latest Contact Info) Description 05/12/2020 Transcribe Orders Virtual Department 30 [place] [address] Reymundo Salvador MD [facility], [address] [address] [email or web address] Hesitancy of micturition (Primary Dx); Benign prostatic [...] Description 04/30/2025 8:15 AM EST Office Visit [facility] 10 [place] [address] Unknown, Unknown, Timothy Romeo PA-C [address] [place] [address] BETTY Solorzano [address] [email or web address] documented as of this encounter Results * [...] not evaluated. POS [id number] Reymundo Salvador MD IMG US RENAL Final Result documented in this encounter [...] hesitancy documented in this encounter Care Teams Laboratory Equipment Cleaner Relationship Specialty Start Date End Date Arsh Torres MD [address] [place] [address] [address] [place] [phone] PCP - General 03/03/17 documented as of this encounter Additional Source Comments The information contained in this document represents components of the legal health record. It is not the complete legal health record.[facility]
--- OUTSIDE RECORDS SUMMARY | 2025-04-17 08:27 | XMS_ITS | Encounter Summary ---
Author Organization [employer] Address 75 [facility] 7t [place] [address] Care Team Providers Care Salt Machine Operator Name Role Phone Arsh Gamez MD Primary Care Provide r Reason for Visit * Reason Comments Med Refill Encounter Details Date Type Department Care Team ([facility] st Contact Info) Description 09/30/2024 Refill [facility] 230 [place], [place] [phone] Arsh Gamez MD 230 [place], [place] [phone] Social History Tobacco Use Types Packs/Day Years [...] Description 04/29/2025 3:00 PM EST Office Visit [facility] AD[facility] D[facility] 505 [place] [address] 05/22/2025 2:45 PM EST Office Visit [facility] 505 [place] [address] Eleno Sequeira DDS [address] [place] [address] 06/13/2025 8:00 AM EST Office Visit [facility]ULT [facility] [address] [place] [address] Mari Bloom documented as of this encounter Visit Diagnoses Not on filedocumented in this encounter Additional Health Concerns Assessment Noted Time PHQ-9 Depression Total Score: 0 09/29/19 24 9:32 AM EDT documented as of this encounter Care Teams Salt Machine Operator Relationship Specialty Start Date End Date Arsh Gamez MD 230 [place] [address] PCP - General Internal Medicine 12/18/13 documented as of this encounter
--- OUTSIDE RECORDS SUMMARY | 2025-04-17 08:27 | XMS_ITS | Encounter Summary ---
Author Organization [employer] Address 75 [facility] 7t [place] [address] Care Team Providers Care Family Lawyer Name Role Phone Arsh Gamez MD Primary Care Provide r Reason for Visit * Reason Onset Date Comments Dr. Davis possible RCT needed per chart 02/26/2025 Encounter Details Date Type Department Care Team ([facility] st Contact Info) Description 02/26/2025 Telephone [facility] 230 [place], [place] [phone] Power Davis, DMD [address] [place] [address] Dr. Davis possible RCT needed per chart Social History Tobacco Use Types Packs/Day Years [...] * Telephone Encounter - Clair Blancas - 02/26/2025 9:44 AM EDT Message for Dr. Davis Patient called in stating that he is having pain when he eats and was infrmed by provider, also noted in chart, that if pain persists patient wuld need RCT, PC and CROWN. No indication if patient needs to see Dr. Donato of it can be done in office C with provider that does RCT. Please verify and reach out to patient for clarification and/or scheduling DR Sent to both Clinical Support and bowling floor desk clerk DR documented in this encounter Plan of Treatment Upcoming Encounters Date Type Department Care Team (Late st Contact Info) Description 04/29/2025 3:00 PM EST Office Visit [facility] ADULT DENTAL [address] [place] [address] 05/22/2025 2:45 PM EST Office Visit [facility]ULT [facility] [address] [place] [address] Eleno Sequeira, MARTIS [address] [place] [address] 06/13/2025 8:00 AM EST Office Visit [facility] 230 [place] [address] Mari Bloom Scheduled Orders Name Type Priority Associated Diagnoses Orde r Schedule 31 31 ENDODONTIC THERAPY, MOLAR TOOTH Dental Routine 1 Occurrenc es starting 02/26/2025 documented as of this encounter Visit Diagnoses Not on filedocumented in this encounter Additional Health Concerns Assessment Noted Time PHQ-9 Depression Total Score: 0 12/19/19 25 8:55 AM EDT documented as of this encounter Care Teams Family Lawyer Relationship Specialty Start Date End Date Arsh Gamez MD 230 [place] [address] PCP - General Internal Medicine 12/18/13 documented as of this encounter
--- OUTSIDE RECORDS SUMMARY | 2025-04-17 08:27 | XMS_ITS | Encounter Summary ---
Author Organization [employer] Address 75 [facility] 7t [place] [address] Care Team Providers Care Director Of Solutions Architecture Name Role Phone Arsh Gamez MD Primary Care Provide r Reason for Visit * Reason Onset Date Comments Results 03/27/2024 Encounter Details Date Type Department Care Team ([facility] Contact Info) Description 03/27/2024 Telephone [facility] MED[facility] 230 [place], [place] [phone] Arsh Gamez MD [address] [place], [place] [phone] Results Social History Tobacco Use Types Packs/Day [...] Description 04/29/2025 3:00 PM EST Office Visit [facility] ADULT DENTAL [address] [place] [address] 05/22/2025 2:45 PM EST Office Visit [facility]ULT [facility] [address] [place] [address] Eleno Sequeira DDS [address] [place] [address] 06/13/2025 8:00 AM EST Office Visit [facility] ADULT [facility] [address] [place] [address] Mari Bloom documented as of this encounter Visit Diagnoses Not on filedocumented in this encounter Additional Health Concerns Assessment Noted Time PHQ-9 Depression Total Score: 0 09/29/19 9:32 AM EDT documented as of this encounter Care Teams Director Of Solutions Architecture Relationship Specialty Start Date End Date Sharif Mg, Arsh, MD [address] [place] [address] PCP - General Internal Medicine 12/18/13 documented as of this encounter
--- OUTSIDE RECORDS SUMMARY | 2025-04-17 08:27 | XMS_ITS | Encounter Summary ---
Author Organization [employer] Address [address] [facility] [address] 7[address] [place] [address] Care Team Providers Care Bi Tri Operator Name Role Phone Arsh Gamez MD Primary Care Provide r Reason for Visit * Reason Comments Med Refill Encounter Details Date Type Department Care Team ([facility] st Contact Info) Description 06/24/2023 Refill [facility] & PEDS [address] [place], [place] [phone] Arsh Gamez MD 230 [place] [address] Pain Social History Tobacco Use Types Packs/Day [...] Description 04/29/2025 3:00 PM EST Office Visit [facility] ADULT DENTAL [address] [place] [address] 05/22/2025 2:45 PM EST Office Visit [facility]ULT [facility] [address] [place] [address] Eleno Sequeira DDS 230 [place] [address] 06/13/2025 8:00 AM EST Office Visit [facility] ADULT DENT[facility] 230 [place] [address] Mari Bloom documented as of this encounter Visit Diagnoses Diagnosis Pain Generalized pain documented in this encounter Care Teams Bi Tri Operator Relationship Specialty Start Date End Date Arsh Gamez MD [address] [place] [address] PCP - General Internal Medicine 12/18/13 documented as of this encounter
--- OUTSIDE RECORDS SUMMARY | 2025-04-17 08:27 | XMS_ITS | Clinical Summary ---
Author Organization [employer] Address [address] [facility] 7[address] [place] [address] Care Team Providers Care Taxi Driver Supervisor Name Role Phone Arsh Gamez MD [...] MCKAY ED 90 tablet 3 5 Active amoxicillin (Amoxil) 500 MG capsule Take 4 caps 1 hour prior dental procedure 12 capsule 5 Active finasteride (Proscar) 5 MG tabletIndication s:Benign prostatic hyperplasia with urinary frequency TAKE 1 TABLET (5 MG) BY MOUTH ONCE PER DAY. 90 tablet 1 5 Active glucose blood (FREESTYLE LITE) test stripIndications :Type 2 diabetes mellitus without complication, without long-term current use of insulin (HCC) USE DIRECTED TO TEST BLOOD SUGAR ONCE DAILY 50 each 7 5 Active TRUEplus Lancets 33G miscIndications: Type 2 diabetes mellitus without complication, without long-term current use of insulin ([facility]) USE DIRECTED TO TEST BLOOD SUGAR ONCE DAILY 100 each 3 5 Active Blood Glucose Monitoring Suppl (FreeStyle Walton Lite) w/Device kitIndications:T ype 2 diabetes mellitus without complication, without long-term current use of insulin ([facility]) Use to test blood sugar once daily 1 kit 5 Active aspirin 81 MG EC tablet Take 1 tablet by mouth Once per day. Active clotrimazole-bet amethasone (Lotrisone) cream APPLY BY TOPICAL ROUTE EVERY 12 HOURS Active meloxicam (Mobic) 15 MG tablet TOME 1 TABLETA POR V A ORAL TODOS LOS D Active metoprolol succinate XL (Toprol-XL) 25 MG 24 hr tablet TAKE 1 TABLET BY MOUTH EVERY DAY 90 tablet 1 Active amoxicillin (Amoxil) 500 MG capsule Take 1 capsule (500 mg) by mouth every 8 (eight) hours for 7 days. 21 capsule 5 03/20/20 25 chlorhexidine (Peridex) 0.12 % solution Use 15 mL in the mouth or throat if needed in the morning, at noon, and at bedtime (PROPHYLAXIS) for up to 5 days. 110 mL 5 03/18/20 25 acetaminophen (Tylenol) 500 MG tablet Take 1 tablet (500 mg) by mouth every 8 (eight) hours if needed for mild pain or moderate pain for up to 5 days. 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 Chacon (Urology). Last seen 01/29/2025 Underwent a surgical urologic procedure 3 days ago Has a follow up with urology, reports he is doing well overall Assessment & Plan (05/03/2024 9:24 AM EST): Follows with urology Under the care of Dr. Fofana (Urology). Recommended to continue Flomax and Proscar Last PSA 04/19/2024 down to 3.31. Seen by Madeleine Blnaco who recommended a 6 month follow up.Pt [...] 2:01 PM EST): Pt extensively evaluated by [facility] extension specialist Dr. Arrington last seen 10/02/2012. He did not think his blood work was indicative of SLE. last seen 12/05/2012 Chronic lower back pain 12/18/2021 Assessment & Plan (03/21/2025 3:40 PM EST): Pt with acute on chronic low back pain Report good days and bad days. Patient has been deemed disable as a result in the past Hx of right alfonso laminectomy defect at L4-L5 and L5 to S1 MRI of the LS spine done at [facility] on 02/18/2000 showed no evidence of recurrent disc herniation. In the past he has received steroid injections and takes Flexeril and Diclofenac prn. He has had PT in the past as well. Given persistent of pain I asked for a repeat MRI MRI 12/25/2024 showed: Multilevel lumbar spondylosis pronounced at L3-4 resulting in central spinal canal and bilateral neuroforamina stenosis encroaching the neural elements. Bilateral neuroforamina narrowing at L4-5 on a degenerative basis. Patient was referred back to the [facility] for evaluation. Assessment & Plan (12/20/2024 11:11 AM EDT): Pt with acute on chronic low back pain Report good days and bad days. Patient has been deemed disable as a result in the past Hx of right alfonso laminectomy defect at L4-L5 and L5 to S1 MRI of the LS spine done at [facility] on 02/18/2000 showed no evidence [...] MRI of the LS spine done at [facility] on 02/18/2000 showed no evidence [...] EDT): Seen by Ortho Dr Andrew Huntley S/Shoaib TKR Back in September 2022 Assessment & Plan (06/16/2022 2:04 PM EST): Seen by Ortho Dr Andrew Hutnley Type 2 diabetes mellitus without complications 0 07/19/2017 Assessment & Plan (03/21/2025 3:37 PM EST): Televisit Reports he is doing well in regards to his DM On Metformin XR 500 mg po daily. Pt tells me he has been monitoring his glucose and is ranging between 100-110's Hgb A1c on 12/18/2024: 5.8, will repeat next time he comes to the office Microalbumin 06/17/2022 was 42 Pt is off DAVID inhibitor per Nephrology Foot check risk of zero Pt reports compliance with Asa 81 mg po daily Plan: Continue taking Metformin. Pt advised to: adhere to diabetic diet check your blood sugars regularly check your feet on a daily basis Assessment & Plan (12/18/2024 9:52 AM EDT): [...] ) Essential hypertension 04/29/2015 Assessment & Plan (03/21/2025 11:06 AM EST): Patient is here for a follow up BP stable He is off lisinopril discontinued by Nephrology, HCTZ discontinued due to pancreatitis He is on: hydralazine 50 mg 2 tabs po TID , Amlodipine 5 mg po daily, Metoprolol succinate ER 25 mg every day, Pt back to see Dr Campbell ( mine manager) Pt stopped Amlodipine due GI side effects and dizziness BMP Lab Results Component Value Date NA 141 12/10/2024 NA 142 05/23/2024 K 3.8 12/10/2024 K 4.4 05/23/2024 CL 107 12/10/2024 CL 108 05/23/2024 BUN 16 12/10/2024 BUN 24 (H) 05/23/2024 CREATININE 1.48 (H) 12/10/2024 CREATININE 1.25 05/23/2024 Normal Plan: continue current regimen Follow up in 4 months Assessment & Plan (12/18/2024 9:51 AM EDT): Patient is here for a follow up BP stable He is off lisinopril discontinued by Nephrology, HCTZ discontinued due to pancreatitis He is on: hydralazine 50 mg 2 tabs po TID , Amlodipine 5 mg po daily, Metoprolol succinate ER 25 mg every day, Pt back to see Dr Campbell ( mine manager) Pt stopped Amlodipine due GI side [...] Pt back to see Dr Campbell ( mine manager) Pt stopped Amlodipine due GI side [...] Pt back to see Dr Campbell ( mine manager) Pt stopped Amlodipine due GI side [...] Pt back to see Dr Campbell ( mine manager) Pt stopped Amlodipine due GI side effects and dizziness [facility] 06/2022 Normal. Will repeat Plan: continue current regimen Follow up in 4 months in person Assessment & Plan (10/19/2022 8:29 AM EDT): Televisit BP controlled per his report He is on: lisinopril 40. hydralazine 50 mg 2 tabs po TID , Metoprolol succinate ER 25 mg every day, HCTZ discontinued due to pancreatitis Pt back to see Dr Campbell ( mine manager) Pt stopped Amlodipine due GI side effects and dizziness [facility] 06/2022 Normal Plan: continue current regimen Follow up in 4 months Assessment & Plan (06/16/2022 1:52 PM EST): Here for a f/u BP controlled He is on: lisinopril 40. hydralazine 50 mg 2 tabs po TID , Metoprolol succinate ER 25 mg qd a HCTZ discontinued due to pancreatitis Pt back to see Dr Campbell ( mine manager) Pt stopped Amlodipine due GI side effects and dizziness Plan: continue current regimen Follow up in 4 months Gastroesophageal reflux disease without esophagi tis 02/12/2014 Assessment & Plan (06/16/2022 2:01 PM EST): Patient under the care [facility]. Last seen by [...] Encounters Date Type Department Care Team Description 04/14/2025 Refill [facility] MEDICINE [address] [place] [phone] Arsh Gamez MD 04/03/2025 Orders Only [facility] MED[facility]INE [address] [place] [phone] Arsh Gamez MD Colon cancer screening (Primary Dx) 04/01/2025 Telephone [facility] MEDICINE [address] [place] [address] Arsh Gamez MD Referral 04/01/2025 Refill [facility] MEDICINE [address] [place] [phone] Arsh Gamez MD 03/26/2025 Telephone [facility] ADULT DENTAL [address] [place] [phone] Sania Chopra, MARTIS Dr. Marin change treatment plan/active request 03/21/2025 10:30 AM EST Telemedicine [facility] MEDICINE [address] [place] [phone] Arsh Gamez MD Benign prostatic hyperplasia with urinary frequency (Primary Dx); Type 2 diabetes mellitus without complication, without long-term current use of insulin (HCC); Chronic midline low back pain without sciatica 03/21/2025 Travel 03/20/2025 Telephone [facility] WALK[facility]IN [facility] [address] [place] [phone] Gabbi Chaney MA 03/13/2025 11:30 AM EDT Office Visit [facility] ADULT DENTAL [address] [place] [phone] Power Davis DMD 03/13/2025 Refill [facility] [address] [place] [phone] Arsh Gamez MD 02/26/2025 Telephone [facility] ADULT DENTAL [address] [place] [phone] Power Davis, OLIVA Davis possible RCT needed per chart 01/28/2025 Telephone [facility] MEDICINE [address] [place] [phone] Arsh Gamez MD March recall from Last 3 Months Immunizations Immunization Administration [...] your housing situation today? I have timothy elkin 12/18/[address] you li [...] Description 04/29/2025 3:00 PM EST Office Visit [facility] ADULT DENTAL [address] [place] [address] 05/22/2025 2:45 PM EST Office Visit [facility] [address] [place] [address] Eleno Sequeira, DDS [address] [place] [address] 06/13/2025 8:00 AM EST Office Visit [facility] ADULT DENTAL [address] [place] [address] Mari Bloom Health Maintenance Due Date Last Done Comments CT Colonography 1960 FIT DNA/Cologuard 1960 FIT 1960 FOBT 1960 Sigmoidoscopy 1960 Diabetes: Foot Exam 02/24/1970 Eye Exam 02/24/1970 RSV Patients and Patients Aged 60 years or older (1 - Risk 50-74 years 1-dose series) 02/24/2010 Zoster Vaccines (1 of 2) 02/24/2010 COVID-19 Vaccine ( season) 2025 04/29/2021, 07/22/2020, 06/24/2020 Alcohol/Substance Use Screening 05/03/2025 05/03/2024 Lipid Panel 05/23/2025 05/23/2024, 04/16, 06/17/2022, Additional history exists Dental Oral Exam 05/31/2025 11/27/2024, , 08/03/2023, Additional history exists Dental Prophylaxis 05/31/2025 11/27/2024, 0 05/29/2024, 08/03/2023, Additional history exists Colonoscopy 06/11/2025 06/11/2020, 06/11/2020 Colorectal Cancer Screening 06/11/2025 Diabetes: Hemoglobin A1C 06/20/2025 025, 05/03/2024, 08/02/2023, Additional history exists DTaP/Tdap/Td Vaccines (2 - Td or Tdap) 08/13/2025 08/14/2015, 12/14/1999 Diabetes: Urine Protein Screening 12/10/2025 12/10/2024, 04/19/2024, 06/17/2022, Additional history exists Depression Screening 12/18/2025 12/18/2024, 12/19/19 SDOH Screening 12/18/2025 12/18/2024 Dental X-Ray: Bitewings 03/14/2026 03/13/20 25, 11/27/2024, 01/12/2024, Additional history exists Tobacco Screening 03/21/2026 03/21/2025 Dental X-Ray: Full Mouth 01/11/2027 01/11/2024 Hepatitis B Vaccines Completed 04/17/2001, 01/12/2000, 12/14/1999 Hepatitis C Screening Completed 06/17/2022 , 06/17/2022, 12/30/2021 Pneumococcal Vaccine: 50+ Years Completed 12/18/2024 Influenza Vaccine Completed 03/08/2025, , 03/17/2022, Additional history exists HIB Vaccines Aged Out No longer eligi [...] on patient's age to complete this topic Goals Goal Patient Goal Type Associated Problems [...] Patient has chronic kidney disease No Latoya Puenets Patient has chronic kidney disease Care Plan Patient has chronic kidney disease No Latoya Puentes Procedures Procedure Name Priority Date/Time Associated Diagnosis Comments CASE PRESENTATION, DETAILED AND EXTENSIVE TREATMENT PLANNING Routine 03/13/2025 11:30 AM EDT BITEWING - SINGLE RADIOGRAPHIC IMAGE Routine 03/13/2025 11:30 AM EDT INTRAORAL - PERIAPICAL FIRST RADIOGRAPHIC IMAGE Routine 03/13/2025 11:30 AM EDT PALLIATIVE (EMERGENCY) TREATMENT OF DENTAL PAIN - MINOR PROCEDURE Routine 03/13/2025 11:30 AM EDT POCT GLYCATED HEMOGLOBIN, TOTAL Routine 12/18/2024 9:10 AM EDT Type 2 diabetes mellitus without complication, without long-term current use of insulin ([facility]) CREATININE, RANDOM URINE Routine 12/10/2024 9:12 AM EDT PROPHYLAXIS - ADULT Routine 11/27/2024 8 :00 AM EDT PERIODIC ORAL EVALUATION - ESTABLISHED PATIENT Routine 11/27/2024 8:00 AM EDT LIPID PANEL, STANDARD Routine 05/23/2024 8:09 AM EST Hypertriglyceridemi a PANORAMIC RADIOGRAPHIC IMAGE Routine 01/11/2024 1:00 PM EDT HEPATITIS C ANTIBODY REFLEX Routine 06/17/2022 10:14 AM EST HM COLONOSCOPY Routine 06/11/2020 8:26 AM EST from Last 3 Months or Most Recently Relevant to Health Maintenance Results * (ABNORMAL) POCT HGB A1C (12/18/2024 9:10 AM EDT) Hemoglobin A1C 5.8(A) 4.0 - 5.7 % QC Media Lot # [id number] Lot# Expiration Date ,308,529 Blood 12/18/2024 9:10 AM EDT Arsh Holliday MD POINT OF CARE TEST EN TER/EDIT ORDERABLES Final Result * Creatinine, Random Urine (12/10/2024 9:12 AM EDT) Creatinine, Urine 85.29 mg/dL [facility] 12/10/2024 9:12 AM EDT 12/10/2024 9:45 AM EDT us Generic External Data Provider LAB URINE ORDERAB LES Final Result Performing Organization Address [facility]/ZIP Co de Phone Number [facility] [address] [place] [address] [phone] * (ABNORMAL) Lipid Panel, Standard (05/23/2024 8:09 AM EST) Triglycerides 127 <150 mg/dL [facility] Comment:Desirable Triglyceri de: less than 150 mg/dLBorderline High Triglyceride 150-199 mg/dLHigh Triglyceride: 200-499 mg/dLVery High Triglyceride: greater than or equal to 5OO mg/dL Cholesterol 153 <200 mg/dL [facility] Comment:Desirable Cholestero l: less than 200 mg/dLBorderline High Cholesterol: 200-239 mg/dLHigh Cholesterol: greater than 239 mg/dL LDL Cholesterol Calculated 97 <100 mg/dL [facility] Comment:Desirable LDL: less than 100 mg/dLNear Optimal/Above Optimal LDL: 110- 129 mg/dLBorderline High LDL: 130-159 mg/dLHigh LDL: 160-189 mg/dLVery High LDL: greater than or equal to 190 mg/dL HDL Cholesterol 31(L) >40 mg/dL [facility] Comment:Desirable HDL: great er than 40 mg/dL Note: This HDL assay may give artificially low results in patients with liver disease. Blood Venous blood specimen / Unknown 05/23/2024 8:09 AM EST 05/23/2024 8:09 AM EST us Arsh Holliday MD LAB BLOOD ORDERABLES Final Result Performing Organization Address City/[facility]/ZIP Co de Phone Number [facility] [address] [place] [address] [phone] * Hepatitis C Antibody Reflex (06/17/2022 10:14 AM EST) Hepatitis C Antibody Nonreactive Nonreactive [facility] Comment:Antibodies to HCV no t detected; does not exclude early acuteHCV infection. 06/17/2022 10:1 4 AM EST 06/17/2022 10:14 AM EST [facility] External Provider LAB BLO OD ORDERABLES Final Result [facility] [address] [place] [address] [phone] * Hm Colonoscopy (06/11/2020 8:26 AM EST) Colonoscopy Normal Normal Historical Provider HEALTH MAINTENANCE Edited Result - Final from Last 3 Months or Most Recently Relevant to Health Maintenance Additional Health Concerns Active Problems Noted Date [...] 04/04/2025 Patient has chronic kidney disease 04/04/2025 Insurance [facility] STANDARD MEDICARE DENTAL-[facility] MEDICAID STAND ADULT Care Teams Taxi Driver Supervisor Relationship Specialty Start Date End Date Arsh Gamez MD [address] [place] [phone] PCP - General Internal Medicine 12/18/13
--- OUTSIDE RECORDS SUMMARY | 2025-04-17 08:27 | XMS_ITS | Encounter Summary ---
Author Organization [employer] [facility] Address [address] [facility] [address] [place] [address] Care Team Providers Care Lumber Sales Supervisor Name Role Phone Arsh Gamez MD Primary Care Provide r Reason for Visit * Reason Onset Date Comments Pre Op 07/19/2022 Appointment Request 07/22/2022 r/s Pre Op Encounter Details Date Type Department Care Team ([facility] st Contact Info) Description 07/19/[address] [facility] MEDICINE [address] [place], [place] [phone] Arsh Gamez MD [address] [place], [place] [phone] Pre Op; Appointment Request (r/s Pre Op [...] Miscellaneous Notes * Telephone Encounter - Fabianoraleigh Ruizjannei العراقي - 07/28/2022 11:42 AM EDT Tc from from pt returning phone call regarding messages below. Pt states to please call before 11 am every day. Please contact pt at [phone] * Telephone Encounter - Autumn Ramirez RN [...] 10 am due to him working in [place] for 11am. * Telephone Encounter - Cami Martin RN - 07/19/2022 1:53 PM EST Call to [facility] to inform them of pt's appt. No answer. Left VM with appt details and asked for them to call pt with appointment * Telephone Encounter - Cami Martin RN - 07/19/2022 12:31 PM EST Call from Torrie at [facility]. Pt does not needs labs but does [...] requesting a Pre Op appt Location : [address] [place] [phone] Procedure : Knee Transplant Labs: does not know EKG: does not know Anesthesia: Does not know Surgeon: does not know documented in this encounter Plan of Treatment Upcoming Encounters Date Type Department Care Team (Late st Contact Info) Description 04/29/2025 3:00 PM EST Office Visit [facility] ADULT DENTAL [address] [place] [address] 05/22/2025 2:45 PM EST Office Visit [facility] ADULT DENT[facility] [address] [place] [address] Eleno Sequeira DDS [address] [place] [address] 06/13/2025 8:00 AM EST Office Visit [facility] ADULT DENTAL [address] [place] [address] Mari Bloom documented as of this encounter Visit Diagnoses Not on filedocumented in this encounter Care Teams Lumber Sales Supervisor Relationship Specialty Start Date End Date Arsh Gamez MD [address] [place] [address] PCP - General Internal Medicine 12/18/13 documented as of this encounter
--- OUTSIDE RECORDS SUMMARY | 2025-04-17 08:27 | XMS_ITS | Encounter Summary ---
Author Organization [email or web address] Address [address] [facility] [address] [place] [address] Care Team Providers Care Die Developer Name Role Phone Arsh Gamez MD Primary Care Provide r Reason for Visit * Reason Onset Date Comments Med Refill 10/09/2024 Encounter Details Date Type Department Care Team ([facility] st Contact Info) Description 10/09/2024 Telephone [facility] [address] [place], [place] [phone] Arsh Gamez MD [address] [place], [place] [phone] Med Refill Social History Tobacco Use Types [...] 15 MG tablet To be sent to: [facility]/pharmacy #[id number] [facility], [place] - [address] [place] [address] AT NEXT TO [facility] documented in this encounter Plan of Treatment Upcoming Encounters Date Type Department Care Team (Late st Contact Info) Description 04/29/2025 3:00 PM EST Office Visit [facility] [address] [place] [address] 05/22/2025 2:45 PM EST Office Visit [facility] [address] [place] [address] Eleno Sequeira DDS [address] [place], [place] [phone] 06/13/2025 8:00 AM EST Office Visit [facility] [address] [place] [address] Mari Bloom documented as of this encounter Visit Diagnoses Not on filedocumented in this encounter Additional Health Concerns Assessment Noted Time PHQ-9 Depression Total Score: 0 09/29/19 24 9:32 AM EDT documented as of this encounter Care Teams Die Developer Relationship Specialty Start Date End Date Arsh Gamez MD [address] [facility] [place] [address] PCP - General Internal Medicine 12/18/13 documented as of this encounter
--- OUTSIDE RECORDS SUMMARY | 2025-04-17 08:27 | XMS_ITS | Encounter Summary ---
Author Organization [employer] Address [address] [facility] 7t [place] [address] Care Team Providers Care Pumpman Name Role Phone Arsh Gamez MD Primary Care Provide r Encounter Details Date Type Department Care Team (Late st Contact Info) Description 06/14/2022 Orders Only [facility] MED & PEDS [address] [place] [address] Sarah Pineda LPN Social History Tobacco Use [...] Description 04/29/2025 3:00 PM EST Office Visit [facility] [address] [place] [address] 05/22/2025 2:45 PM EST Office Visit [facility]ULT [facility] [address] [place] [address] Eleno Sequeira, MARTIS [address] [place] [address] 06/13/2025 8:00 AM EST Office Visit [facility] ADULT DENTAL [address] [place] [address] Mari Bloom documented as of this encounter [...] EST documented in this encounter Results * [place]/Lambda Light Chains, Free with Ratio (06/17/2022 10:30 AM EST) [place] Light Chain, Free, Serum 303 176 - 443 mg/dL [facility] Lambda Light Chain, Free, Serum 163 91 - 240 mg/dL [facility] [place]/Lambda Light Chains Free With Ratio, Serum 1.86 1.29 - 2.55 [facility] Comment:This assay provides a measurement [...] myeloma, lymphoproliferative disorders, andamyloidosis.THIS TEST WAS PERFORMED AT:[facility]/[employer] [id number] VERONICA CALDWELL [id number] SINGER MD,PHD,ADRIENNE 06/17/2022 10:3 0 AM EST 06/18/2022 4:58 PM EST [facility] External Provider LAB BLO OD ORDERABLES Final Result Performing Organization Address [facility]/ZIP Co de Phone Number [facility] [address] [place] [phone] * Albumin, Random Urine W/Creatinine (06/17/2022 10:30 AM EST) Creatinine, Urine 123.67 mg/dL [facility] Microalbumin Urine 42.0 mg/L [facility] Microalbum Creatinine Ratio Ur 33.9 ug/mg cr [facility] Comment:Albumin/Creatinine R atio Reference Ranges: Normal: < 30 ug/mg creatinine Microalbuminuria: 30 - 300 ug/mg creatinineClinical Albuminuria: > 300 ug/mg creatinine 06/17/2022 10:3 0 AM EST 06/17/2022 11:33 AM EST [facility] External Provider LAB URI NE ORDERABLES Final Result Performing Organization Address City/[facility]/ZIP Co de Phone Number [facility] [address] [place] [phone] * Protein Electrophoresis and Total Protein, Random Urine (06/17/2022 10:15 AM EST) PEU-Random Urine Creatinine 121 20 - 320 mg/dL [facility] PEU-Random Urine Protein 14 5 - 25 mg/dL [facility] PEU-[place]. Prot/Creat Ratio 116 25 - 148 mg/g creat [facility] PEU-Random Urine Albumin 100 % [facility] PEU-Random Urine A1 Globulin 0 % [facility] PEU-Random Urine A2 Globulin 0 % [facility] PEU-Random Urine Beta Globulin 0 % [facility] PEU-Random Ur. Gamma Globulin 0 % [facility] PEU Ran-Abn Protein Band 1 TNP [facility] PEU Ran-Abn Protein Band 2 TNP [facility] PEU [facility] 3 [facility] PEU-Random Urine Interpret. SEE NOTE [facility] Comment:Normal PatternTHIS T EST WAS PERFORMED AT:[facility] [address] ([facility])[place] [address]DNRXMTERRY JASON MD Protein/Creatini ne Ratio 0.116 0.025 - 0.148 [facility] Comment:Result Units: mg/mg creat 06/17/2022 10:1 5 AM EST 06/18/2022 3:03 PM EST [facility] External Provider LAB URI NE ORDERABLES Final Result Performing Organization Address [facility]/ZIP Co de Phone Number [facility] [address] [place] [phone] * Immuniofixation, Urine (06/17/2022 10:15 AM EST) Pathologist [facility] DELVIN Interpretation [facility] Comment:No monoclonal protei ns detected.THIS TEST WAS PERFORMED AT:[facility] [address] ([facility])[place] [address]WBQRGJULIET JASON MD 06/17/2022 10:1 5 AM EST 06/18/2022 3:03 PM EST [facility] External Provider LAB URI NE ORDERABLES Final Result Performing Organization Address [facility] Co de Phone Number [facility] [address] [place] [phone] * Hepatitis C Viral RNA, Quantitative, Real-Time PC (06/17/2022 10:14 AM EST) [facility] Hepatitis C Viral Load <15 NOT DETECTED NOT DETECTED IU/mL [facility] HCV Log PCR <1.18 NOT DETECTED NOT DETECTED Log IU/mL [facility] Comment:This test was perfor med using Real-Time Polymerase ChainReaction.Reportable Range: 15 IU/mL to 100,000,000 IU/mL(1.18 Log IU/mL to 8.00 Log IU/mL).The analytical performance characteristics of thisassay have been determined by [employer].The modifications have not been cleared or approved bythe FDA. This assay has been validated pursuant to theCLIA regulations and is used for clinical purposes.For more information on this test, go to:http://education.[employer]/faq/HPK29l8(This link is being provided for informational/educational purposes only.)THIS TEST WAS PERFORMED AT:[facility] [address] ([address])[place] [address]YESIRTERRY JASON MD 06/17/2022 10:1 4 AM EST 06/17/2022 10:14 AM EST us [facility] External Provider LAB BLO OD ORDERABLES Final Result [facility] [address] [place] [phone] * Protein Electrophoresis and [place]/Lambda Light Chains (06/17/2022 10:14 AM EST) Prot Elec - Total Protein 7.2 6.1 - 8.1 g/dL [facility] Prot Elec - Albumin 4.2 3.8 - 4.8 g/dL [facility] Prot Elec - Alpha1 0.3 0.2 - 0.3 g/dL [facility] Prot Elec - Alpha2 0.6 0.5 - 0.9 g/dL [facility] Prot Elec - Beta 1 0.5 0.4 - 0.6 g/dL [facility] Prot Elec - Beta 2 0.4 0.2 - 0.5 g/dL [facility] Prot Elec - Gamma 1.2 0.8 - 1.7 g/dL [facility] PES - Abn Protein Band 1 TNP [facility] PES-Abn Protein Band 2 [facility] PES-Abn Protein Band 3 [facility] Prot Elec - Interpretation SEE NOTE [facility] Comment:Normal Electrophoret ic PatternTHIS TEST WAS PERFORMED AT:[facility] [address] ([facility])[place] [address]IMKQBTERRY JASON MD 06/17/2022 10:1 4 AM EST 06/17/2022 10:14 AM EST [facility] External Provider LAB BLO OD ORDERABLES Final Result Performing Organization Address [facility] Co de Phone Number [facility] [address] [place] [phone] * (ABNORMAL) Immunofixation, Serum (06/17/2022 10:14 AM EST) IMMUNOGLOBULIN G 1189 600 - 1540 mg/dL [facility] IMMUNOGLOBULIN A 355(A) 70 - 320 mg/dL [facility] Immunoglobulin M 145 50 - 300 mg/dL [facility] Comment:THIS TEST WAS PERFOR MED AT:[facility] [address] ([facility])[place] [address]XEMTGJULIET JASON MD Immunofixation Result SEE NOTE [facility] Comment:Normal pattern. No m onoclonal proteins detected. 06/17/2022 10:1 4 AM EST 06/18/2022 2:59 PM EST [facility] External Provider LAB BLO OD ORDERABLES Final Result Performing Organization Address [facility] Co de Phone Number [facility] [address] [place] [phone] * Hepatitis C Antibody Reflex (06/17/2022 10:14 AM EST) Hepatitis C Antibody Nonreactive Nonreactive [facility] Comment:Antibodies to HCV no t detected; does not exclude early acuteHCV infection. 06/17/2022 10:1 4 AM EST 06/17/2022 10:14 AM EST [facility] External Provider LAB BLO OD ORDERABLES Final Result Performing Organization Address [facility] de Phone Number [facility] [address] [place] [phone] * Lipid Panel with Reflex to Direct LDL (06/17/2022 10:14 AM EST) Triglycerides 154 mg/dL [facility] Comment:Desirable Triglyceri de: less than 150 mg/dLBorderline High Triglyceride 150-199 mg/dLHigh Triglyceride: 200-499 mg/dLVery High Triglyceride: greater than or equal to 5OO mg/dL Cholesterol 176 mg/dL [facility] Comment:Desirable Cholestero l: less than 200 mg/dLBorderline High Cholesterol: 200-239 mg/dLHigh Cholesterol: greater than 239 mg/dL LDL Cholesterol Calculated 119 mg/dl [facility] Comment:Desirable LDL: less than 100 mg/dLNear Optimal/Above Optimal LDL: 110- 129 mg/dLBorderline High LDL: 130-159 mg/dLHigh LDL: 160-189 mg/dLVery High LDL: greater than or equal to 190 mg/dL HDL Cholesterol 27 mg/dL [facility] Comment:Desirable HDL: great er than 40 mg/dL Note: This HDL assay may give artificially low results in patients with liver disease. 06/17/2022 10:1 4 AM EST 06/17/2022 10:14 AM EST [facility] External Provider LAB BLO OD ORDERABLES Final Result Performing Organization Address [facility] Co de Phone Number [facility] [address] [place] [phone] * (ABNORMAL) Basic Metabolic Panel (06/17/2022 10:14 AM EST) Sodium 139 135 - 145 mmol/L [facility] Potassium 4.1 3.3 - 5.1 mmol/L [facility] Chloride 107 96 - 108 mmol/L [facility] Carbon Dioxide 25 22 - 29 mmol/L [facility] Anion Gap 11(L) 12 - 20 [facility] Urea Nitrogen (BUN) 19(H) 9 - 16 mg/dL [facility] Creatinine, Serum 1.20 0.5 - 1.4 mg/dL [facility] Estimated Glomerular Filt Rate >60 [facility] Comment:NOTE: For -Am erican individuals, multiply the result by 1.210.Chronic Kidney Disease: Estimated GFR < 60 mL/min/1.69n6Eoaipp Kidney Disease: Estimated GFR < 15 mL/min/1.73m2 Glucose 93 60 - 115 mg/dL [facility] Calcium 9.2 8.4 - 10.2 mg/dL [facility] 06/17/2022 10:1 4 AM EST 06/17/2022 10:14 AM EST us [facility] External Provider LAB BLO OD ORDERABLES Final Result [facility] [address] [place] [phone] * CBC (06/17/2022 10:14 AM EST) White Blood Count 5.9 4.8 - 10.8 X10*3/uL [facility] Red Blood Count 5.41 4.60 - 5.80 X10*6/uL [facility] Hemoglobin 15.7 14.0 - 18.0 g/dl [facility] Hematocrit 45.5 42.0 - 52.0 % [facility] Mean Corpuscular Volume 84.1 80.0 - 98.0 fL [facility] Mean Corpuscular Hemoglobin 29.0 27.0 - 33.0 pg [facility] Mean Corpuscular HGB Conc 34.5 31.0 - 36.0 g/dl [facility] Red Cell Distribution Width 13.7 11.0 - 16.0 % [facility] Platelet Count 209 160 - 400 X10*3/uL [facility] Mean Platelet Volume 9.9 9.4 - 12.4 fL [facility] NRBC Pct Auto 0.0 0.0 - 0.2 /100WBC [facility] NRBC Abs Auto 0.000 0.0 - 0.012 X10*3/uL [facility] 06/17/2022 10:1 4 AM EST 06/17/2022 10:14 AM EST us [facility] External Provider LAB BLO OD ORDERABLES Final Result Performing Organization Address City/State/[facility] Co de Phone Number [facility] [address] [place] [address] [phone] documented in this encounter Visit Diagnoses Not on filedocumented in this encounter Care Teams Pumpman Relationship Specialty Start Date End Date Arsh Gamez MD [address] [place] [address] PCP - General Internal Medicine 12/18/13 documented as of this encounter
--- OUTSIDE RECORDS SUMMARY | 2025-04-17 08:27 | XMS_ITS | Encounter Summary ---
Author Organization [facility] Address [address] [place] [phone] Phone Care Team Providers Care Marketing Automation Manager Name Role Phone Arsh Torres MD Primary Care Provide r Encounter Details Date Type Department Care Team (Late st Contact Info) Description 05/24/2017 Procedure Pass OR Admitting Dept - Virtual Department [address] [place] [address] Social History Tobacco Use Types Packs/Day Years [...] 04/30/2025 8:15 AM EST Office Visit [facility] [address] [place] [address] Unknown, Unknown, Timothy Romeo PA-C [address] [address] documented as of this encounter Visit Diagnoses Not on filedocumented in this encounter Care Teams Marketing Automation Manager Relationship Specialty Start Date End Date Arsh Torres MD [address] [place] [address] [address] [place] [phone] [email or web address] PCP - General 03/03/17 documented as of this encounter Additional Source Comments The information contained in this document represents components of the legal health record. It is not the complete legal health record.[facility]
--- OUTSIDE RECORDS SUMMARY | 2025-04-17 08:27 | XMS_ITS | Encounter Summary ---
Author Organization [facility] Address [address] [place] [address] Phone Care Team Providers Care Executive Vice President Name Role Phone Arsh Sharif MD Primary Care Provider Encounter Details Date Type Department Care Team (Late st Contact Info) Description 06/29/2022 Telephone [facility] [address] [place] [address] Sarah Phelps Social History Tobacco [...] that the [facility] performing [place] the clearance two months before his surgery date in September. Surgery is for his right knee. documented in this encounter Plan of Treatment Not on file documented as of this encounter Visit Diagnoses Not on filedocumented in this encounter Care Teams Executive Vice President Relationship Specialty Start Date End Date Arsh Sharif MD [address] [place] [phone] PCP - General Internal Medicine 08/24/21 documented as of this encounter
--- OUTSIDE RECORDS SUMMARY | 2025-04-17 08:27 | XMS_ITS | Encounter Summary ---
Author Organization [facility] Address [address] [facility] 7t [place] [address] Care Team Providers Care Commercial Real Estate Manager Name Role Phone Arsh Gamez MD Primary Care Provide r Encounter Details Date Type Department Care Team (Latest Contact Info) Description 07/09/2019 Abstract [facility] CONVERSIONS Dental, Provider, DDS Social History [...] Description 04/29/2025 3:00 PM EST Office Visit [facility] ADULT DENTAL [address] [place] [address] 05/22/2025 2:45 PM EST Office Visit [facility] ADULT DENTAL [address] [place] [address] Eleno Sequeira DDS [address] [place] [address] 06/13/2025 8:00 AM EST Office Visit [facility] ADULT DENTAL [address] [place] [address] Mari Bloom documented as of this encounter Visit Diagnoses Not on filedocumented in this encounter Care Teams Commercial Real Estate Manager Relationship Specialty Start Date End Date Arsh Gamez MD [address] [place] [address] PCP - General Internal Medicine 12/18/13 documented as of this encounter
--- OUTSIDE RECORDS SUMMARY | 2025-04-17 08:27 | XMS_ITS | Encounter Summary ---
Author Organization [facility] Address [address] [facility] 7t [place] [address] Care Team Providers Care Cabinet Finisher Name Role Phone Arsh Gamez MD Primary Care Provide r Encounter Details Date Type Department Care Team (Late st Contact Info) Description 09/23/2022 Abstract [facility] [address] [place], [place] [phone] Arsh Gamez MD [address] [place], [place] [phone] Social History Tobacco Use Types Packs/Day Years [...] Department Care Team (Late Contact Info) Description 04/29/2025 3:00 PM EST Office Visit [facility] ADULT DENTAL [address] [place], [place] [phone] 05/22/2025 2:45 PM EST Office Visit [facility] ADULT DENTAL [address] [place] [address] Eleno Sequeira DDS [address] [place] [address] 06/13/2025 8:00 AM EST Office Visit [facility] ADULT DENTAL [address] [place] [address] Mari Bloom documented as of this encounter Visit Diagnoses Not on filedocumented in this encounter Care Teams Cabinet Finisher Relationship Specialty Start Date End Date Arsh Gamez MD [address] [place] [address] PCP - General Internal Medicine 12/18/13 documented as of this encounter
--- OUTSIDE RECORDS SUMMARY | 2025-04-17 08:27 | XMS_ITS | Encounter Summary ---
Author Organization [facility] Address [address] [place] [phone] Phone Care Team Providers Care Naval Aircrewman Helicopter Name Role Phone Arsh Torres MD Primary Care Provide r Encounter Details Date Type Department Care Team (Latest Contact Info) Description 05/12/2017 Transcribe Orders [address] [place] [address] Dorian Laughlin MD [address] [place] [phone] [email or web address] Hypertension, unspecified type (Primary Dx); Mass of [...] Description 04/30/2025 8:15 AM EST Office Visit [facility] [address] [place] [address] Unknown, Unknown, Timothy Romeo PA-C [address] [place] [phone] [email or web address] documented as of this encounter Results * (ABNORMAL) CBC and differential (05/12/2017 9:37 AM EST) WBC 8.29 3.40 - 11.20 K/uL [facility] RBC 5.79(H) 4.50 - 5.50 M/uL [facility] HGB 17.5(H) 13.0 - 17.0 g/dL [facility] HCT 48.5 40.0 - 51.0 % [facility] PLT 221 130 - 400 K/uL [facility] MCV 83.8 79.0 - 98.0 fL [facility] MCH 30.2 27.0 - 34.8 pg [facility] MCHC 36.1(H) 31.5 - 36.0 g/dL [facility] RDW 12.5 10.8 - 14.6 % [facility] MPV 9.7 9.4 - 12.4 fl [facility] NRBC 0.00 /100 WBCs [facility] ABSOLUTE NRBC 0.00 K/uL [facility] DIFF METHOD Auto [facility] NEUTS 58.7 45.30 - 77.70 % [facility] LYMPHS 27.6 12.30 - 39.70 % [facility] MONOS 9.5 4.10 - 12.80 % [facility] EOS 3.1 0 - 7.2 % [facility] BASOS 0.6 0 - 2.80 % [facility] Granulocytes, immature (%) 0.5 0.0 - 0.9 % [facility] ABSOLUTE NEUTS 4.86 1.40 - 7.70 K/uL [facility] ABSOLUTE LYMPHS 2.29 0.60 - 3.20 K/uL [facility] ABSOLUTE MONOS 0.79(H) 0.11 - 0.59 K/uL [facility] ABSOLUTE EOS 0.26 0.01 - 0.50 K/uL [facility] ABSOLUTE BASOS 0.05 0.00 - 0.08 K/uL [facility] Granulocytes, immature 0.04 0.00 - 0.05 K/uL [facility] Blood 05/12/2017 9:37 AM EST 05/12/2017 9:39 AM EST us Dorian Laughlin MD LAB BLOOD BKR ORDERABLES Final Result [facility] [address] [place] [address] documented in this encounter Visit Diagnoses Diagnosis Hypertension, unspecified type- Primary Mass of joint of right knee documented in this encounter Care Teams Naval Aircrewman Helicopter Relationship Specialty Start Date End Date Arsh Torres MD [address] [place] [address] [address] [place] [phone] PCP - General 03/03/17 documented as of this encounter Additional Source Comments The information contained in this document represents components of the legal health record. It is not the complete legal health record.[facility]
[2025-04-17 09:39] LABS: Anion Gap 13 (12-20); Blood Urea Nitrogen 19 mg/dL (9-16); Calcium 9.4 mg/dL (8.4-10.2); Carbon Dioxide 28 mmol/L (22-29); Chloride 105 mmol/L (96-108); Estimated Glomerular Filt Rate 55; Potassium 3.8 mmol/L (3.3-5.1); Sodium 142 mmol/L (135-145)
== END 2025-04-17 08:19 | disposition home or self-care (01) ==
LOC: HO.LAB 08:18
PROVIDERS: PCP Internal Medicine; Visit Provider Internal Medicine Hypertension Specialist
DX: I10 Essential (primary) hypertension (principal); N17.9 Acute kidney failure, unspecified
CPT/HCPCS: 36415; 80048

== ENCOUNTER 2025-04-22 09:56 | Outpatient (AMB) | payer MEDICARE, MEDICAID, SELFPAY ==
[2025-04-22 10:00] VITALS: BP 122/74; PULSE 64; O2SAT 98; BMI 24.3
--- NOTE | 2025-04-22 10:00 | HO.NEPHOV ---
Vital Signs 04/22/25 10:00 Height 5 ft 5 in Weight 146 lb 2 oz BMI 24.3 BP 122/74 Blood Pressure Location Rt brachial Position Sitting Pulse 64 Pulse Source Pulse Oximeter Pulse Oximetry (%) 98 Oxygen Delivery Method Room Air Intake Visit Reasons: 3mon f/u w/labs-Conf Clinical Quality Manager Required: No Accompanied by: Self / Same As Patient Allergies nut - unspecified (NUTS) Allergy (Intermediate, Verified 04/22/25 10:00) ITCHY THROAT nitroglycerin (NITROGLYCERIN) Adverse Reaction (Unknown, Verified 04/22/25 10:00) HEADACHES BREAD Allergy (Mild, Uncoded 01/29/25 09:57) RUNNY NOSE Lopid Allergy (Unknown, Uncoded 01/29/25 09:57) Unknown nsaids Allergy (Unknown, Uncoded 01/29/25 09:57) Unknown Percocet Allergy (Unknown, Uncoded 01/29/25 09:57) Unknown Medication List - Last Reconciled 04/22/25 by Wyatt Mccoy MD amlodipine 5 mg PO DAILY finasteride 5 mg PO DAILY hydralazine 75 mg PO TID metformin ER 500 mg PO DAILY@1800 metoprolol succinate ER 25 mg PO DAILY omeprazole 20 mg PO BID sulfamethoxazole-trimethoprim 400-80 mg (Bactrim) 1 tab PO DAILY tamsulosin 0.8 mg (2 x 0.4 mg) PO DAILY tranexamic acid 650 mg PO DAILY 10 days HPI Comments Details: 63-year-old male with history of hypertension, [id number] type 2 diabetes, hyperlipidemia, and BPH following with [facility] urology / , presented to the ED for evaluation of right lower quadrant and flank/low back pain as well as nausea, vomiting, subjective fevers and chills ongoing for several days. He was found to have acute kidney injury. ALESSANDRA was most likely due to the combination of hypoperfusion in the setting of sepsis/bacteremia and he also had a component of urinary retention. Lopez catheter was inserted. DAVID inhibitors, HCTZ and meloxicam were held. With IV hydration renal function returned to baseline. He was discharged home with a Lopez. He was seen by Dr. Salvador 2 days ago. Lopez has been removed. He still has some dysuria but no difficulty. Serum creatinine has returned to baseline of 1.12. He does have non nephrotic proteinuria in the setting of diabetes mellitus 05/29/24;Here for f/u; Had difficulty urinating with back pain 09/17/24 Seen by in Jun. Treated with a course of Bactrim and Mobic Feels better now No new urinary issues Was given Lisonopril 40 mg by pharmacy BP has been low Today he did not take Lisinopril Claims that his BP was better with 10 mg 12/17/24 Feels dizzy when he takes HCTZ Did not take any anti hypertensives this morning BP is in normal range 01/21/25 After lowering meds, BP is better. No further dizziness Off Meloxicam - used to take 2-3 a day 04/22/25 The patient is a 65 year old male presenting for follow-up on his chronic conditions, including hypertension, diabetes mellitus, and chronic kidney disease. He has a history of an acute kidney injury, for which lisinopril and hydrochlorothiazide were discontinued, and his renal function has since improved. There is no significant proteinuria. The patient is followed by urology for benign prostatic hyperplasia and underwent a transurethral resection of the prostate (TURP) last month. He reports feeling slightly better but continues to experience some urinary problems. He completed a 10-day course of Bactrim post-procedure. His current antihypertensive medications include hydralazine and amlodipine. He states that exercising at the gym helps control his blood pressure and blood sugar, but he has not been attending recently due to his recent procedure. [facility] Medical History Prostatitis Hyperlipidemia BPH (benign prostatic hyperplasia) Diabetes 1.5, managed as type 2 HTN (hypertension) Surgical History History of knee surgery Social History Household Members: Spouse, Family and Children Housing: Apartment Do you presently have visiting nurse or other home services: No Patient Tobacco Use Status: Never used Tobacco e-Cigarette/Vaping Use: Never Used service: No Physical Exam Vital Signs: Last Vital Signs Pulse 64 04/22/25 10:00 BP 122/74 04/22/25 10:00 Pulse Ox 98 04/22/25 10:00 Oxygen Delivery Method Room Air 04/22/25 10:00 BMI result Body Mass Index 24.3 Results Reviewed Nephrology Results: Sodium, (135-145) 142 mmol/L 04/17/25 Potassium, (3.3-5.1) 3.8 mmol/L 04/17/25 Chloride, (96-108) 105 mmol/L 04/17/25 Carbon Dioxide, (22-29) 28 mmol/L 04/17/25 BUN, (9-16) 19 mg/dL H 04/17/25 Creatinine, (0.5-1.4) 1.30 mg/dL 04/17/25 Calcium, (8.4-10.2) 9.4 mg/dL Δ 04/17/25 Urine Protein, (Neg-Trace) 30 (1+) mg/dL H 01/15/25 Renal US 06/05/24 Assessment & Plan Assessment & Plan (1) ALESSANDRA (acute kidney injury): Code(s): N17.9 - Acute kidney failure, unspecified Category: Medical (2) HTN (hypertension): Code(s): I10 - Essential (primary) hypertension Category: Medical Plan 64-year-old man with ALESSANDRA superimposed on mild CKD in a setting of longstanding diabetes mellitus and enlarged prostate with non nephrotic range proteinuria. The ALESSANDRA was due to hypoperfusion combined with possible urinary retention. Renal function is back to baseline. Cr down to 1.2 Baseline workup for proteinuria was unremarkable Blood pressure is well controlled. I will continue with DAVID inhibitor for renal protection. Change Lisinopril to 10 mg QD ( from 40 mg) We would avoid NSAIDs due to the risk of hypoperfusion in combination with DAVID inhibitors. I have encouraged him to increase p.o. fluid intake Stay on low-sodium diet. Follow with as well 12/17/24 ALESSANDRA due to hypoperfusion STOP LIsinopril Stop HCTZ due to low BP/dizziness/ALESSANDRA REcheck Creatinine is 3 weeks 01/21/25 BP acceptable No hypotension No improvement in creatinine Avoid NSAIDS/Meloxicam 04/22/25 - The patient's renal function has improved and is better than before. - No medication changes will be made at this time, pending recovery from his recent TURP procedure. - A urine test for protein will be performed in four months, and if protein is found, would reintroduce ACEi and watch serum potassium - The patient was advised to drink plenty of water and avoid NSAIDs like Aleve or Advil. - He was educated that taking a creatinine supplement is not harmful to the kidneys but can cause an artificial elevation in blood creatinine levels, and he should report its use if he decides to take it. Orders: Orders Total Protein Urine Random 4 Months I10 - Essential (primary) hypertension, N17.9 - Acute kidney failure, unspecified Basic Metabolic Panel 4 Months I10 - Essential (primary) hypertension, N17.9 - Acute kidney failure, unspecified Complete Blood Count no Diff 4 Months I10 - Essential (primary) hypertension, N17.9 - Acute kidney failure, unspecified UA and rflx microscopic 4 Months I10 - Essential (primary) hypertension, N17.9 - Acute kidney failure, unspecified Creatinine Urine 4 Months I10 - Essential (primary) hypertension, N17.9 - Acute kidney failure, unspecified Medications: Discontinued sulfamethoxazole-trimethoprim 400-80 mg (Bactrim) Discontinued Reason: Patient no longer taking 1 tab PO DAILY 10 tabs 0RF Coding Level of Care Code Est Pt Level 4 (03317) Diagnoses ALESSANDRA (acute kidney injury) N17.9 HTN (hypertension) I10
== END 2025-04-22 10:13 | disposition home or self-care (01) ==
LOC: HO.HKA 09:56
PROVIDERS: PCP Internal Medicine; Visit Provider Internal Medicine Hypertension Specialist
DX: N17.9 Acute kidney failure, unspecified (principal); I10 Essential (primary) hypertension
CPT/HCPCS: 99214

== ENCOUNTER → 2025-04-22 09:56 | Outpatient (BNVA) | payer MEDICARE, MEDICAID, SELFPAY | PROVIDERS: PCP Internal Medicine; Visit Provider Internal Medicine Hypertension Specialist | DX: I10 Essential (primary) hypertension (principal); E11.9 Type 2 diabetes mellitus without complications; N17.9 Acute kidney failure, unspecified; N18.9 Chronic kidney disease, unspecified | CPT/HCPCS: 99212 ==